=== PATIENT | female | born 1950 | race Caucasian/White ===

== ENCOUNTER 2016-06-09 13:02 | Inpatient (IN) ==
--- NOTE | 2016-06-09 13:46 | Emergency Department Note ---
Disposition Clinical Impression: Atrial flutter Qualifiers: Atrial flutter type: typical Qualified Code(s): I48.3 - Typical atrial flutter Dyspnea, unspecified Qualifiers: Dyspnea type: shortness of breath Qualified Code(s): R06.02 - Shortness of breath Disposition: Admitted As Inpatient SOB HPI - General Chief Complaint: ED Shortness of Breath/Dyspnea Stated Complaint: abnormal EKG Time Seen by Provider: 06/09/16 13:10 Source: patient, family Limitations: no limitations - History of Present Illness 65 yo female presenting with complaint of shortness of breath, palpitations intermittently for the past 2 months. Patient states that this morning when she woke up to walk her dog, she felt like her heart was beating out of her chest to the point where she felt like she had to sit down. Patient denies gabriela chest pain, known history of CAD, status post triple CABG back in . Patient denies any syncopal/presyncopal episodes, denies history of DVT/PE. Patient does not take any anticoagulation, no Plavix/aspirin despite having had cardiac bypass. In the ED, at this time, patient does not have any chest pain. Patient was sent in from her primary care physician's office due to fast EKG, highly suspicious for atrial flutter. She denies history of A. fib, a flutter/ cardiac arrhythmia. Pt Subjective Complaint: shortness of breath Onset (ago): month(s) (2) Severity: mild Consistency/Duration: intermittent Improves with: nothing Worsens with: exertion Treatment prior to arrival: none - Related Data Home Medications Medication Instructions Recorded Confirmed Cholecalciferol (D-3) [Vitamin D] 2,000 unit PO DAILY 04/18/16 06/09/16 Citalopram Hydrobromide [Celexa] 40 mg PO DAILY 04/18/16 06/09/16 Diphenoxylate/Atropine [Lomotil 1 tab PO BID PRN 04/18/16 06/09/16 2.5 mg/0.025 mg] Gabapentin [Neurontin] 900 mg PO HS 04/18/16 06/09/16 Losartan/Hydrochlorothiazide 1 tab PO DAILY 04/18/16 06/09/16 [Hyzaar 100-12.5 Tablet] Metformin HCl [Metformin HCl ER] 500 mg PO BID 04/18/16 06/09/16 Metoprolol [Lopressor] 50 mg PO DAILY 04/18/16 06/09/16 Allergies Allergy/AdvReac Type Severity Reaction Status Date / Time atorvastatin [From Lipitor] Allergy Rash Verified 06/09/16 15:29 All systems ED: reviewed and negative except as stated. Constitutional: Denies: fever, chills, weakness Cardiovascular: Reports: palpitations, dyspnea on exertion. Denies: chest pain , orthopnea, edema, syncope Respiratory: Reports: dyspnea. Denies: cough, wheezes, hemoptysis Gastrointestinal: Denies: abdominal pain, nausea, vomiting, diarrhea Genitourinary: Denies: urgency, dysuria, frequency Neurological: Denies: headache, weakness Past Medical History - Past Medical History Medical history: Reports: cancer, diabetes, hypertension Psychiatric history: Reports: anxiety - Social History Smoking Status: Former smoker Smokeless Tobacco Status: No Alcohol use: Reports: none Drug use: Reports: none Physical Exam - General Limitations: no limitations General appearance: alert - Head Head exam: atraumatic, normocephalic, normal inspection - Eye Eye exam: Present: normal appearance, PERRL - Expanded Eye Exam Pupils: Left: reactive - ENT ENT exam: normal exam, normal oropharynx, mucous membranes moist - Expanded ENT Exam External ear exam: Present: normal external inspection - Neck Neck exam: Present: normal inspection, full ROM, trachea midline - Chest Chest inspection: Present: normal inspection, symmetric chest wall rise - Respiratory Respiratory exam: Present: normal lung sounds bilaterally - Cardiovascular Cardiovascular exam: Present: regular rate, normal rhythm, normal heart sounds - Abdominal Exam Abdominal exam: Present: soft, Non-Tender. Absent: tenderness, distention, guarding, rebound, rigidity - Extremities Exam Extremities exam: Present: normal inspection. Absent: tenderness, pedal edema - Expanded Upper Extremity Exam Vascular exam: Normal: capillary refill, radial pulse - Expanded Lower Extremity Exam Neurovascular/Tendon exam: Absent: motor deficit, sensory deficit, tendon deficit - Back Exam Back exam: Present: normal inspection, full ROM. Absent: tenderness - Neurological Exam Neurological exam: Present: alert, oriented X3 - Expanded Neurological Exam Patient oriented to: Present: person, place, time Coma Scale Eye Opening: Spontaneous Coma Scale Motor Response: Obeys Commands Coma Scale Verbal Response: Oriented Coma Scale Total: 15 - Psychiatric Psychiatric exam: Present: normal affect, normal mood - Skin Skin exam: Present: warm, dry, intact, normal color Course Course Narrative: 65 yo female presented with complaint of palpitations, shortness of breath intermittently for the past 2 months. EKG suspicious for atrial flutter, patient denies history of arrhythmia, no known history of A. fib/A flutter. She has past history of CAD, status post CABG; no history of cardiomyopathy/CHF. Patient is currently symptom-free, said the shortness of breath was worse this morning when she tried walk HER dog. Patient stated that sometimes she cannot even walk across a room without needing to sit down due to the palpitation and shortness of breath. She has no history of DVT/PE, low suspicion for a blood clot at this time. - Reevaluation(s) Reevaluation #1: I did discuss patient's case with the hospitalist, she will admit patient, hopitalist was made aware of the patient's a-flutter on the EKG, patient's complaint of shortness of breath, elevation of BNP despite no known history of cardiomyopathy/CHF. I did look for patient's previous echocardiogram, this was unavailable per our records. The hospitalist and I agreed to give patient a small dose of metoprolol prior to be being transported to the floor. I think that IV Cardizem is not particularly needed at this time based on the fact that I'm not sure whether patient has cardiomyopathy, she is comfortable, despite having heart rate of 120s, her blood pressure has been stable and no demand ischemia per EKGs/ troponin. Vital Signs Temperature 96.7 F L 06/09/16 13:09 Pulse Rate 120 06/09/16 13:09 Respiratory Rate 20 06/09/16 13:09 Blood Pressure 140/101 06/09/16 13:09 O2 Sat by Pulse Oximetry 95 06/09/16 13:09 Temperature 97.8 F 06/09/16 15:46 Pulse Rate 115 06/09/16 15:46 Respiratory Rate 16 06/09/16 15:46 Blood Pressure 120/82 06/09/16 15:46 O2 Sat by Pulse Oximetry 96 06/09/16 16:07 Oxygen Delivery Oxygen Delivery Nasal Cannula Shortness of Breath/Dyspnea - Lab Data Result diagrams: 06/09/16 13:34 06/09/16 13:34 Lab Results 06/09/16 06/09/16 06/09/16 Range/Units 13:34 13:34 13:34 WBC 7.0 (4.3-11.1) K/mcL RBC 3.65 L (3.82-4.97) M/mcL Hgb 10.4 L (11.5-15.4) g/dL Hct 33.1 L (35.3-44.9) % MCV 90.7 (83.0-100.0) fL MCH 28.5 (28.0-33.3) pg MCHC 31.4 L (31.6-35.5) g/dL RDW 13.3 (11.5-14.5) % Plt Count 177 (140-400) K/mcL MPV 10.1 (9.4-12.4) fL Immature Gran % 0.3 (0-4) % Seg Neutrophils % 48.5 % Lymphocytes % 40.4 % Monocytes % 7.9 % Eosinophils % 2.0 % Basophils % 0.9 % Neutrophils # 3.4 (1.6-8.9) K/mcL Lymphocytes # 2.8 (0.6-4.6) K/mcL Monocytes # 0.6 (0.0-1.3) K/mcL Eosinophils # 0.1 (0.0-0.6) K/mcL Basophils # 0.1 (0.0-0.2) K/mcL Sodium 138 (136-145) mEq/L Potassium 4.1 (3.5-4.5) mEq/L Chloride 105 (98-109) mEq/L Carbon Dioxide 23 (19-29) mEq/L BUN 20 (7-20) mg/dL Creatinine 1.04 (0.57-1.11) mg/dL Est GFR ( Amer) > 60 (> 60) Est GFR (Non-Af Amer) 53 L (> 60) BUN/Creatinine Ratio 19 (6-26) Glucose 123 H (70-99) mg/dL Calculated Osmolality 290 (280-300) Calcium 9.7 (8.6-10.8) mg/dL Troponin I 0.01 (0-0.03) ng/mL B-Natriuretic Peptide (0-100) pg/mL TSH 1.244 (0.350-4.840) mcIU/mL 06/09/16 Range/Units 13:34 WBC (4.3-11.1) K/mcL RBC (3.82-4.97) M/mcL Hgb (11.5-15.4) g/dL Hct (35.3-44.9) % MCV (83.0-100.0) fL MCH (28.0-33.3) pg MCHC (31.6-35.5) g/dL RDW (11.5-14.5) % Plt Count (140-400) K/mcL MPV (9.4-12.4) fL Immature Gran % (0-4) % Seg Neutrophils % % Lymphocytes % % Monocytes % % Eosinophils % % Basophils % % Neutrophils # (1.6-8.9) K/mcL Lymphocytes # (0.6-4.6) K/mcL Monocytes # (0.0-1.3) K/mcL Eosinophils # (0.0-0.6) K/mcL Basophils # (0.0-0.2) K/mcL Sodium (136-145) mEq/L Potassium (3.5-4.5) mEq/L Chloride (98-109) mEq/L Carbon Dioxide (19-29) mEq/L BUN (7-20) mg/dL Creatinine (0.57-1.11) mg/dL Est GFR ( Amer) (> 60) Est GFR (Non-Af Amer) (> 60) BUN/Creatinine Ratio (6-26) Glucose (70-99) mg/dL Calculated Osmolality (280-300) Calcium (8.6-10.8) mg/dL Troponin I (0-0.03) ng/mL B-Natriuretic Peptide 731 H (0-100) pg/mL TSH (0.350-4.840) mcIU/mL - EKG Data Rate: Reports: tachycardia Rhythm: Reports: arrhythmia [place]/QRS: Reports: left axis deviation Interpretation: Reports: other (A flutter) Attestation Statement - Attestation Attestation: I examined this patient and my medical decision-making was reviewed with the BULL DRIVER/PA/Advanced Practice Nurse/Resident Physician. I agree with the documented findings, disposition and treatment plan as described except to the extent set forth below. Patient presents to the emergency department treatment shortness of breath. Patient states she has felt bad for the past couple of months. She is not having pain in her lower ribs for the past 3 days. She saw her primary care doctor today, Dr. Mcmanus, who did an EKG. She was in a flutter so she sent for evaluation in the emergency department. Patient states her heart rates and running in the 140s home. On examination she is well appearing. Lungs are clear. She has noted have a midline sternotomy scar. Heart tachycardia but regular. Plan. EKG seems most consistent with atrial flutter in the 120s. Cardiac workup and likely admission.
[2016-06-09 13:50] LABS: Basophils # 0.1 K/mcL (0.0-0.2); Basophils % 0.9 %; Eosinophils # 0.1 K/mcL (0.0-0.6); Hematocrit 33.1 % (35.3-44.9); Hemoglobin 10.4 g/dL (11.5-15.4); Immature Granulocytes % 0.3 % (0-4); Lymphocytes # 2.8 K/mcL (0.6-4.6); Lymphocytes % 40.4 %; Mean Corpuscular HGB Conc 31.4 g/dL (31.6-35.5); Mean Corpuscular Hemoglobin 28.5 pg (28.0-33.3); Mean Corpuscular Volume 90.7 fL (83.0-100.0); Mean Platelet Volume 10.1 fL (9.4-12.4); Monocytes # 0.6 K/mcL (0.0-1.3); Monocytes % 7.9 %; Neutrophils # 3.4 K/mcL (1.6-8.9); Platelet Count 177 K/mcL (140-400); Red Blood Count 3.65 M/mcL (3.82-4.97); Red Cell Distribution Width 13.3 % (11.5-14.5); Segmented Neutrophils % 48.5 %
[2016-06-09] MEDS ORDERED: Aspirin 325 MG TABLET PO ONE (13:56)
[2016-06-09 14:02] LABS: BUN/Creatinine Ratio 19 (6-26); Blood Urea Nitrogen 20 mg/dL (7-20); Calcium 9.7 mg/dL (8.6-10.8); Carbon Dioxide 23 mEq/L (19-29); Chloride 105 mEq/L (98-109); Glucose 123 mg/dL (70-99); Osmolality,Calculated 290 (280-300); Potassium 4.1 mEq/L (3.5-4.5); Sodium 138 mEq/L (136-145); eGFR For African Americans > 60 (> 60); eGFR For Non-African Americans 53 (> 60)
[2016-06-09] MEDS ORDERED: *HR* Metoprolol 5 MG/5 ML VIAL IVP ONE ×2 (14:48→15:12)
[2016-06-09] MEDS ORDERED: Naloxone 0.4 MG/ML INJ IVP PRN (15:19)
[2016-06-09] MEDS ORDERED: Ondansetron ODT 4 MG TAB.RAPDIS SL PRN (15:19)
[2016-06-09] MEDS ORDERED: Dextrose Gel 15 GM PO PRN ×2 (15:22)
[2016-06-09] MEDS ORDERED: *HR* Dextrose 50 % in Water (Syg) 50 ML SYRINGE IVP PRN (15:22)
[2016-06-09] MEDS ORDERED: D5% in Water 1,000 ML IV PRN (15:22)
[2016-06-09] MEDS ORDERED: Diphenoxylate/Atropine 1 TAB TABLET PO PRN (15:34)
--- NOTE | 2016-06-09 15:56 | Internal Med History&Physical ---
Date of Encounter: 06/09/16 Time of Encounter: 14:30 Assessment and Plan (1) Atrial flutter with rapid ventricular response Current visit: Yes Status: Acute -Unclear if this is an acute on chronic process given patient's previous EKG findings -Rate control with Metoprolol and Cardizem, goal HR<100 -changed patient's metoprolol home dosing to Metoprolol 25mg PO q12h given current BP readings -Follow up 2D echo -I spoke with Dr. Umaña (Cardiology), she will see the patient. -will initiate anticoagulation with heparin drip at this time. -follow up Thyroid studies -tele monitoring -continue to closely monitor HR and BP (2) Dyspnea, unspecified Current visit: Yes Status: Acute Likely secondary to underlying arrhythmia Will follow up 2D echo continue to monitor O2 sat O2 supplementation as needed Qualifiers: Dyspnea type: shortness of breath Qualified Code(s): R06.02 - Shortness of breath (3) Hypertension Current visit: Yes Status: Acute Noted to be hypertensive upon arrival Improved after receiving one dose of Metoprolol 10mg IV Closely monitor BP continue home medications Changed Metoprolol to 25mg PO q12h from Metoprolol 50mgPO qd for better rate control Qualifiers: Hypertension type: essential hypertension Qualified Code(s): I10 - Essential (primary) hypertension (4) Diabetes mellitus Current visit: Yes Status: Acute Hold hold antihyperglycemics at this time continue to monitor fingerstick and blood glucose started low dose correctional insulin sliding scale Qualifiers: Diabetes mellitus type: type 2 Diabetes mellitus complication status: with unspecified complications 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 Qualified Code(s): E11.8 - Type 2 diabetes mellitus with unspecified complications (5) DVT prophylaxis Current visit: Yes Status: Acute anticoagulated with heparin (6) Anemia Current visit: Yes Status: Acute H&H low but acceptable Denied any GI bleeds, no active bleeding noted/reported at this time continue to monitor H&H Qualifiers: Anemia type: unspecified type Qualified Code(s): D64.9 - Anemia, unspecified (7) Morbid obesity Current visit: Yes Status: Chronic Qualifiers: Obesity type: unspecified obesity type Qualified Code(s): E66.01 - Morbid ( severe) obesity due to excess calories Internal Medicine - H&P: HPI Chief complaint: sent by PCP for evaluation of atrial flutter and SOB Admitted From: Home Plans for Post Hospital Care: Home History of present illness: Ms. Hernández is a 65 year old female with PMH of hypertension, DM, CABG in 1994 who was sent to the ER by her PCP for evaluation of atrial flutter with RVR and shortness of breath. Patient states she has been having palpitations for the last three months and [facility]. States earlier today her heart started beating excessively fast as she was walking her dog and she became short of breath, requiring her to stop and rest. Prior to this episode she reports of being able to get around without any difficulties but has been noticing to get short of breath with exertion over the last few months. Due to the episode today she went to see her PCP, who further directed her to the ER. 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 At this time, she is resting in bed, reports of feeling better with the nasal cannula. She denies any headache, chest pain, sob, abd pain, n/v , fever, or chills at this time. PMH: HTN, DM, CABG in , HLD, Breast Ca s/p right breastectomy and chemotherapy 13 years ago (in remission) Social Hx: Former smoker-quit 12 years ago, denies alcohol or any illicit drug use Patient received one dose of Aspirin 325mg PO in the ER. Patient is to get Metoprolol 10mg IV Of note: patient was noted to have EKG findings of A flutter with RVR in April 2016 during her URGI care visit for her URI. Past Med Surg Social Fam HX - Past Medical History Medical history: cancer, diabetes, hypertension Psychiatric history: anxiety - Social History Smoking Status: Former smoker Smokeless Tobacco Status: No Alcohol use: none Drug use: none Internal Medicine - H&P: Meds Celexa 04/18/16 [History] Gabapentin [Neurontin] 04/18/16 [History] Lomotil 2.5 mg/0.025 mg 04/18/16 [History] Losartan Potassium 04/18/16 [History] Metformin 04/18/16 [History] Metoprolol [Lopressor] 04/18/16 [History] Vitamin D2 04/18/16 [History] Allergies atorvastatin [From Lipitor] Allergy (Verified 06/09/16 15:29) Rash All Systems PM: A 10-system review of systems was performed and is negative for pertinent findings except as documented above in the HPI. - Constitutional Constitutional: as per HPI, no anorexia, no chills, no excessive sweating, no fatigue, no fever(s), no falls, no night sweats, no weakness, no weight gain, no weight loss - Constitutional Vitals: Temp Pulse Resp BP Pulse Ox 98.1 F 112 18 123/77 97 06/09/16 15:19 06/09/16 15:31 06/09/16 15:31 06/09/16 15:31 06/09/16 15:31 General appearance: Present: cooperative, A&O X 3, morbidly obese, no acute distress, answers questions appropriately - Head Head exam: Present: atraumatic, normocephalic - Eye Eye exam: Present: normal appearance. Absent: scleral icterus - Respiratory Respiratory exam: Present: CTAB. Absent: chest wall tenderness (midline chest scar from prior surgery (CABG)), respiratory distress, wheezes - Cardiovascular Cardiovascular exam: Present: irregular rhythm, +S1, +S2, tachycardia. Absent: diastolic murmur, systolic murmur - GI/Abdominal GI/Abdominal exam: Present: normal bowel sounds, soft, no peritoneal signs. Absent: distended, tenderness - Extremities Exam Extremities exam: Present: warm, radial pulses palpable and symetrical. Absent : calf tenderness, cyanotic, pedal edema - Neurological Exam Neurological exam: Present: alert, oriented X3, no focal deficits - Psychiatric Psychiatric exam: Present: normal affect, normal mood Internal Med - H&P Results - Labs CBC & Chem 7: 06/09/16 13:34 06/09/16 13:34
[2016-06-09 16:05] LABS: Thyroid Stimulating Hormone 1.244 mcIU/mL (0.350-4.840)
[2016-06-09] MEDS ORDERED: *HR* Heparin 5,000 UNIT/ML VIAL IVP ONE (16:09)
[2016-06-09] MEDS ORDERED: *HR* Heparin 5,000 UNIT/ML VIAL IVP PRN ×2 (16:09)
[2016-06-09] MEDS ORDERED: Heparin 25,000 UNIT/500 ML D5W 25,000 UNIT/500 ML MLS IVC SCH (16:15)
[2016-06-09] MEDS: Insulin LISPRO 300 UNITS/3 ML VIAL SQ SCH ×2 (16:53→20:44)
[2016-06-09] MEDS ORDERED: Ipratropium/Albuterol Neb 3 ML IH PRN (17:03)
[2016-06-09] MEDS ORDERED: *HR* Heparin 5,000 UNIT/ML VIAL SQ SCH (18:00)
[2016-06-09 18:18] LABS: Hematocrit 30.7 % (35.3-44.9); Hemoglobin 9.8 g/dL (11.5-15.4); Mean Corpuscular HGB Conc 31.9 g/dL (31.6-35.5); Mean Corpuscular Hemoglobin 29.2 pg (28.0-33.3); Mean Corpuscular Volume 91.4 fL (83.0-100.0); Mean Platelet Volume 10.8 fL (9.4-12.4); Platelet Count 155 K/mcL (140-400); Red Blood Count 3.36 M/mcL (3.82-4.97); Red Cell Distribution Width 13.5 % (11.5-14.5)
[2016-06-09 18:26] LABS: INR 1.4; Prothrombin Time 15.5 Seconds (9.4-12.1)
[2016-06-09 18:28] LABS: Activated Partial Thrombo Time 39.3 Seconds (26.0-36.0)
[2016-06-09] MEDS: Gabapentin 300 MG CAPSULE PO SCH (20:52)
[2016-06-09] MEDS ORDERED: 0.9 % Sodium Chloride 250 ML ONE (23:42)
[2016-06-10] MEDS ORDERED: 0.9 % Sodium Chloride 250 ML IVC ONE (05:43)
[2016-06-10] MEDS ORDERED: 0.9 % Sodium Chloride 1,000 ML IVC SCH (05:45)
[2016-06-10] MEDS ORDERED: 0.9 % Sodium Chloride 1,000 ML ONE (05:48)
[2016-06-10 06:35] LABS: Basophils % 0.6 %; Eosinophils # 0.1 K/mcL (0.0-0.6); Eosinophils % 1.8 %; Hematocrit 29.1 % (35.3-44.9); Hemoglobin 9.4 g/dL (11.5-15.4); Immature Granulocytes % 0.3 % (0-4); Lymphocytes # 2.6 K/mcL (0.6-4.6); Lymphocytes % 42.4 %; Mean Corpuscular HGB Conc 32.3 g/dL (31.6-35.5); Mean Corpuscular Hemoglobin 29.2 pg (28.0-33.3); Mean Corpuscular Volume 90.4 fL (83.0-100.0); Mean Platelet Volume 10.6 fL (9.4-12.4); Monocytes # 0.5 K/mcL (0.0-1.3); Monocytes % 7.5 %; Platelet Count 131 K/mcL (140-400); Red Blood Count 3.22 M/mcL (3.82-4.97); Red Cell Distribution Width 13.4 % (11.5-14.5); Segmented Neutrophils % 47.4 %
[2016-06-10 06:48] LABS: BUN/Creatinine Ratio 20 (6-26); Blood Urea Nitrogen 19 mg/dL (7-20); Calcium 9.1 mg/dL (8.6-10.8); Carbon Dioxide 21 mEq/L (19-29); Chloride 105 mEq/L (98-109); Glucose 112 mg/dL (70-99); Magnesium 1.4 mg/dL (1.6-2.6); Osmolality,Calculated 287 (280-300); Phosphorous 3.7 mg/dL (2.3-4.7); Potassium 3.5 mEq/L (3.5-4.5); Sodium 137 mEq/L (136-145); eGFR For African Americans > 60 (> 60); eGFR For Non-African Americans > 60 (> 60)
[2016-06-10 06:49] LABS: Hemoglobin A1C 5.9 %
[2016-06-10] MEDS: Insulin LISPRO 300 UNITS/3 ML VIAL SQ SCH ×4 (07:59→21:20)
[2016-06-10] MEDS: Cholecalciferol (D-3) 1,000 UNIT TABLET PO SCH (08:00)
[2016-06-10] MEDS ORDERED: NON-FORMULARY MEDICATION 1 EACH EACH (Losartan/Hydrochlorothiazide [Hyzaar 100-12.5 Tablet PO SCH (09:00)
[2016-06-10] MEDS ORDERED: Aspirin Enteric Coated 81 MG Tablet PO SCH (09:00)
[2016-06-10] MEDS ORDERED: hydroCHLOROthiazide 25 MG TABLET PO SCH (09:00)
--- NOTE | 2016-06-10 10:08 | Electrocardiograph Report ---
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
--- NOTE | 2016-06-10 11:33 | Cardiology Consult Note ---
<Stefan Gamez R - Last Filed: 06/10/16 11:34> Date of Encounter: 06/10/16 Time of Encounter: 11:29 Assessment and Plan (1) Atrial flutter with rapid ventricular response Current Visit: Yes Status: Acute Appears to be atypical A-Flutter. EKGs reviewed with Dr. Cleveland Mascorro. Currently on telemetry, difficult to differentiate if pt is in sinus tach or remains in atypical A-Flutter. Will obtain another EKG. Currently on PO Lopressor 25mg BID and Cardizem gtt 7.5mg/hr. HR persistently in 120s. Uptitrate to keep HR <100 as BP will allow. Will rule out PE as underlying cause--order Chest CT with contrast. Suspect PETE. Check echo to evaluate structure and function. Troponin negative x 1. Mag 1.4 and K 3.5--replace. TSH 0.982. CHADSVASC score of 4 (Age, HTN, DM, CAD). Recommend anticoagulation. Pt has a history of GI bleed in 2010, but per pt and daughter she was taking full dose ASA multiple times per day for dental pain, which likely caused the bleeding. Extensive discussion regarding anticoagulation and pt and daughter are willing. Will challenge with heparin gtt x 24 hours to see if blood counts tolerate or if there is any bleeding noted. If tolerates, then can start on oral agent-- NOACs vs Coumadin. (2) CAD (coronary artery disease) Current Visit: Yes Status: Chronic History of 3 vessel CABG in 1994. Reports chest soreness since her CABG. Continue BB, Statin. Has not been on ASA since GI bleed in 2010. Check echo. Qualifiers: Coronary Disease-Associated Artery/Lesion type: unspecified vessel or lesion type [place] vs. transplanted heart: [place] heart Associated angina: without angina Qualified Code(s): I25.10 - Atherosclerotic heart disease of [place] coronary artery without angina pectoris (3) Hypertension Current Visit: Yes Status: Acute On Lopressor, Cozaar and Cardizem gtt. Will decrease Cozaar to allow room to increase rate control meds. Qualifiers: Hypertension type: essential hypertension Qualified Code(s): I10 - Essential (primary) hypertension Discussion w patient/family: The assessment and plan as outlined above was discussed with the patient and/or family members who expressed understanding and agreement. All questions were answered. Thank you for involving us in the care of your patient. Please call with any questions. History of Present Illness Consult date: 06/10/16 Requesting physician: Darlin Rodriguez Consult reason: A-Flutter RVR Chief complaint: dyspnea, palpitations History of present illness: Ms. Hernández is a 65 year old female with PMH of hypertension, DM, CAD s/p CABG in 1994, HLD, Breast Ca s/p right breastectomy and chemotherapy 13 years ago (in remission), GI bleed, who was sent to the ER by her PCP for evaluation of atrial flutter with RVR and shortness of breath. Patient states she has been having palpitations for the last three months and went to the Urgent Care in April for an URI, was told her fast heart rate was anxiety. States yesterday her heart started beating excessively fast as she was walking her dog and she became short of breath, requiring her to stop and rest. Home BP cuff read HR as 150s, which is when she called her PCP, went to his office, EKG obtained and she was sent to ER. Pt reports chest soreness ever since her CABG, but no worsening from baseline. Dyspnea has been worsening over the past 3 months. Troponins negative. Past Med Surg Social Fam HX - Past Medical History Medical history: cancer, coronary artery disease, diabetes, hypertension Psychiatric history: anxiety - Past Surgical History Surgical History: appendectomy, breast surgery, coronary bypass (CABG) - Social History Smoking Status: Former smoker Smokeless Tobacco Status: No Alcohol use: none Drug use: none - Family History Father Age: 54 Living Status: Age at : 54 Cause of : cirrosis of liver Hx Family Cardiac Disorders: Yes (cardiomegaly) Hx Family Cancer: Yes (liver) Medications and Allergies Cholecalciferol (D-3) [Vitamin D] 2,000 unit PO DAILY 04/18/16 [History] Citalopram Hydrobromide [Celexa] 40 mg PO DAILY 04/18/16 [History] Diphenoxylate/Atropine [Lomotil 2.5 mg/0.025 mg] 1 tab PO BID PRN 04/18/16 [ History] Gabapentin [Neurontin] 900 mg PO HS 04/18/16 [History] Losartan/Hydrochlorothiazide [Hyzaar 100-12.5 Tablet] 1 tab PO DAILY 04/18/16 [ History] Metformin HCl [Metformin HCl ER] 500 mg PO BID 04/18/16 [History] Metoprolol [Lopressor] 50 mg PO DAILY 04/18/16 [History] Allergies atorvastatin [From Lipitor] Allergy (Verified 06/09/16 15:29) Rash All Systems Review: A 10-system review of systems was performed and is negative for pertinent findings except as documented above in the HPI. - Cardiovascular Cardiovascular: as per HPI, dyspnea at rest, dyspnea on exertion, irregular heart rhythm, palpitations - Respiratory Respiratory: dyspnea Physical Examination Vital Signs, Last 4 Hours Temp Pulse Resp BP Pulse Ox 06/10/16 10:47 98.4 F 116 16 106/40 98 Vital Signs Temp Pulse Resp BP Pulse Ox 06/10/16 10:47 98.4 F 116 16 106/40 98 06/10/16 06:55 97.9 F 125 18 109/55 96 06/10/16 05:15 97.5 F L 124 20 113/67 95 06/10/16 04:44 18 98 06/10/16 03:23 98.3 F 122 20 119/70 96 06/10/16 01:41 97.2 F L 120 16 132/87 98 06/09/16 23:27 97.7 F 122 20 115/82 99 06/09/16 21:30 124 20 124/84 97 06/09/16 20:15 93 L 06/09/16 18:28 97.5 F L 123 16 114/62 93 L 06/09/16 17:34 97.5 F L 124 14 108/73 97 06/09/16 16:07 96 06/09/16 15:46 97.8 F 115 16 120/82 96 06/09/16 15:31 112 18 123/77 97 06/09/16 15:19 98.1 F 20 134/95 06/09/16 14:20 121 18 136/97 98 06/09/16 13:15 96 06/09/16 13:09 96.7 F L 120 20 140/101 95 Intake and Output 06/09/16 06/10/16 06/10/16 23:59 07:59 15:59 Intake Total 341.9 / 341.9 300 / 300 Output Total 300 / 300 300 / 300 Balance -300 / -300 41.9 / 41.9 300 / 300 Intake: IV Fluids 41.9 / 41.9 Cardizem 125 MG In 41.9 / 41.9 Dextrose 5% 100 ML @ 5 MG /HR 5 mls/hr IVC .Q24H [facility] Rx#:[id number] Oral 300 / 300 Other 300 / 300 Output: Urine 300 / 300 300 / 300 Other: Meal Breakfast Percent of Meal Consumed 100% Weight 223.8 kg Blood Glucose* 98 167 141 Patient Weight 06/10/16 23:59 Weight 223.8 kg General: Conversant, No Apparent Distress HEENT: Atraumatic, Normocephaly, Mucus Membranes Moist Neck: No JVD, Normal carotid pulses Cardiac: Other (irregular) Lungs: Normal Breath Sounds, No Wheeze, Rales, Rhonchi Neuro: Alert and responsive, No focal deficits noted Abdomen: Soft, Non-Tender Skin: No rashes noted on visualized skin Musculoskeletal: No Chest Wall Tenderness Extremities: No Clubbing, No Cyanosis, No Edema, Normal Pulses Results 06/10/16 05:46 06/10/16 05:46 Lab Results 06/09/16 06/09/16 06/09/16 16:03 16:03 17:46 WBC 6.0 Hgb 9.8 L Hct 30.7 L Plt Count 155 INR APTT Sodium Potassium Chloride Carbon Dioxide BUN Creatinine Glucose Calcium Magnesium TSH 1.038 0.982 06/09/16 06/10/16 06/10/16 17:46 05:46 05:46 WBC 6.2 Hgb 9.4 L Hct 29.1 L Plt Count 131 L INR 1.4 APTT 39.3 H Sodium 137 Potassium 3.5 Chloride 105 Carbon Dioxide 21 BUN 19 Creatinine 0.93 Glucose 112 H Calcium 9.1 Magnesium 1.4 L TSH Short CBC 06/10/16 06/09/16 06/09/16 Range/Units 05:46 17:46 13:34 WBC 6.2 6.0 7.0 (4.3-11.1) K/mcL Hgb 9.4 L 9.8 L 10.4 L (11.5-15.4) g/dL Hct 29.1 L 30.7 L 33.1 L (35.3-44.9) % Plt Count 131 L 155 177 (140-400) K/mcL Neutrophils # 3.0 3.4 (1.6-8.9) K/mcL BMP 06/10/16 06/09/16 Range/Units 05:46 13:34 Sodium 137 138 (136-145) mEq/L Potassium 3.5 4.1 (3.5-4.5) mEq/L Chloride 105 105 (98-109) mEq/L Carbon Dioxide 21 23 (19-29) mEq/L BUN 19 20 (7-20) mg/dL Creatinine 0.93 1.04 (0.57-1.11) mg/dL Glucose 112 H 123 H (70-99) mg/dL Calcium 9.1 9.7 (8.6-10.8) mg/dL Cardiac Enzymes 06/09/16 Range/Units 13:34 Troponin I 0.01 (0-0.03) ng/mL Impressions Chest X-Ray 06/09/16 13:15 IMPRESSION: Patchy airspace disease at the right costophrenic angle with possible small right pleural effusion. Follow-up PA and lateral chest is recommend to further evaluate. D/ / 06/09/2016 13:41:30 Rigoberto Baker MD / [email or web address] Interpreting Provider: Rigoberto Baker MD Active Medications Acetaminophen (Tylenol) 500 mg PO Q6HR PRN PRN Reason: Mild Pain Stop: 12/10/16 09:48 Last Admin: 06/10/16 09:54 Dose: 500 mg Albuterol/Ipratropium (Duoneb) 3 ml IH [id number] PRN; Protocol PRN Reason: Shortness Of Breath/Wheezing Stop: 12/09/16 17:04 Last Admin: 06/10/16 04:40 Dose: 3 ml Citalopram Hydrobromide (Celexa) 40 mg PO DAILY [facility] Stop: 12/10/16 09:01 Last Admin: 06/10/16 08:00 Dose: 40 mg Dextrose/Water (Dextrose 50% (Syg)) 25 ml IVP AD PRN PRN Reason: Hypoglycemia Stop: 12/09/16 15:23 Diphenoxylate HCl/Atropine (Lomotil 2.5 Mg/0.025 Mg) 1 tab PO BID PRN PRN Reason: Diarrhea Stop: 12/09/16 15:35 Gabapentin (Neurontin) 900 mg PO HS [facility] Stop: 12/09/16 21:01 Last Admin: 06/09/16 20:52 Dose: 900 mg Glucagon (Glucagen) 1 mg IM ONCE PRN PRN Reason: Hypoglycemia Stop: 12/09/16 15:23 Glucose (Gluctose) 15 gm PO ONCE PRN PRN Reason: Hypoglycemia Stop: 12/09/16 15:23 Glucose (Gluctose) 30 gm PO ONCE PRN PRN Reason: Hypoglycemia Stop: 12/09/16 15:23 Hydrochlorothiazide (Hydrochlorothiazide) 12.5 mg PO DAILY [facility] Stop: 12/10/16 09:01 Last Admin: 06/10/16 08:01 Dose: 12.5 mg Dextrose (Dextrose 5%) 1,000 mls @ 100 mls/hr IV CONT PRN PRN Reason: HYPOGLYCEMIA Stop: 12/09/16 15:23 Diltiazem HCl 125 mg/ Dextrose 125 mls @ 5 mls/hr IVC .Q24H [facility] PRN Reason: 5 MG/HR Stop: 12/09/16 23:31 Last Infusion: 06/10/16 03:24 Dose: 7.5 mg/hr, 7.5 mls/hr Sodium Chloride (0.9 % Sodium Chloride) 1,000 mls @ 75 mls/hr IVC .[id number] [facility] Stop: 06/10/16 19:04 Last Admin: 06/10/16 06:16 Dose: 75 mls/hr Insulin Human Lispro (Humalog) 0 units SQ TIDAC [facility] PRN Reason: Protocol Stop: 12/09/16 16:31 Last Admin: 06/10/16 07:59 Dose: 2 units Insulin Human Lispro (Humalog) 0 units SQ [facility] PRN Reason: Protocol Stop: 12/09/16 21:01 Last Admin: 06/09/16 20:44 Dose: Not Given Losartan Potassium (Cozaar) 100 mg PO DAILY [facility] Stop: 12/10/16 09:01 Last Admin: 06/10/16 08:00 Dose: 100 mg Metoprolol Tartrate (Lopressor) 25 mg PO BID [facility] Stop: 12/09/16 21:01 Last Admin: 06/10/16 08:00 Dose: 25 mg Naloxone HCl (Narcan) 0.4 mg IVP Q2MIN PRN PRN Reason: Opioid Reversal Stop: 12/09/16 15:20 Ondansetron HCl (Zofran Odt) 4 mg SL Q6HR PRN PRN Reason: Nausea And Vomiting Stop: 12/09/16 15:20 Vitamin D (Vitamin D) 2,000 unit PO DAILY [facility] Stop: 12/10/16 09:01 Last Admin: 06/10/16 08:00 Dose: 2,000 unit - Imaging and Cardiology Chest Xray: report reviewed - EKG Interpretation EKG results cardiology: personally reviewed (Atyical A-Flutter with RVR), other (12 hour tele AVG HR 122--atypical flutter) Consult Discharge Plan - Plan Referrals: Ward Mcmanus MD [Primary Care Provider] - 06/18/16 2:00 pm (Please follow up as schedule.Thanks) <Komal Umaña - Last Filed: 06/10/16 16:14> Date of Encounter: 06/10/16 Assessment and Plan Discussion w patient/family: The assessment and plan as outlined above was discussed with the patient and/or family members who expressed understanding and agreement. All questions were answered. Thank you for involving us in the care of your patient. Please call with any questions. History of Present Illness History of present illness: Ms. Hernández is a 65 year old female All Systems Review: A 10-system review of systems was performed and is negative for pertinent findings except as documented above in the HPI. Physical Examination Vital Signs, Last 4 Hours Temp Pulse Resp BP Pulse Ox 06/10/16 14:30 97.3 F L 119 20 136/75 97 06/10/16 13:13 97.6 F 121 18 108/74 95 06/10/16 12:15 112/52 Results 06/10/16 12:24 06/10/16 05:46 Lab Results 06/09/16 06/09/16 06/09/16 16:03 16:03 17:46 WBC 6.0 Hgb 9.8 L Hct 30.7 L Plt Count 155 INR APTT Sodium Potassium Chloride Carbon Dioxide BUN Creatinine Glucose Calcium Magnesium TSH 1.038 0.982 06/09/16 06/10/16 06/10/16 17:46 05:46 05:46 WBC 6.2 Hgb 9.4 L Hct 29.1 L Plt Count 131 L INR 1.4 APTT 39.3 H Sodium 137 Potassium 3.5 Chloride 105 Carbon Dioxide 21 BUN 19 Creatinine 0.93 Glucose 112 H Calcium 9.1 Magnesium 1.4 L TSH 06/10/16 06/10/16 12:24 12:24 WBC 7.0 Hgb 9.6 L Hct 30.1 L Plt Count 162 INR 1.4 APTT 37.5 H Sodium Potassium Chloride Carbon Dioxide BUN Creatinine Glucose Calcium Magnesium TSH - Attending Attestation I examined this patient and my medical decision-making was reviewed with the SLD INCLUSION TEACHER/PA/Advanced Practice Nurse/Resident Physician. I agree with the documented findings, disposition and treatment plan. Ms. Hernández presents to the hospital for worsening SOB. She was initially discovered to be in AFL in April at urgent care but did not have outpatient follow up. She had a CT which was negative for PE. Echo returned with reduced EF, 40% most likely secondary to tachycardia induced dysrhythmia. She is not responding to cardizem gtt. We will stop this, increase her BB and load her with Digoxin. She has also been started on heparin gtt. Recommend closely watching blood count due to history of GIB while taking high doses of aspirin.
[2016-06-10] MEDS ORDERED: *HR* Heparin 5,000 UNIT/ML VIAL IVP ONE (11:49)
[2016-06-10] MEDS ORDERED: *HR* Heparin 5,000 UNIT/ML VIAL IVP PRN (11:49)
[2016-06-10] MEDS ORDERED: Magnesium Sulfate 2 GM in D5% in Water 100 ML IVPB ONE (11:49)
[2016-06-10 12:51] LABS: Hematocrit 30.1 % (35.3-44.9); Hemoglobin 9.6 g/dL (11.5-15.4); Mean Corpuscular HGB Conc 31.9 g/dL (31.6-35.5); Mean Corpuscular Hemoglobin 28.7 pg (28.0-33.3); Mean Corpuscular Volume 89.9 fL (83.0-100.0); Mean Platelet Volume 10.8 fL (9.4-12.4); Platelet Count 162 K/mcL (140-400); Red Blood Count 3.35 M/mcL (3.82-4.97); Red Cell Distribution Width 13.6 % (11.5-14.5)
[2016-06-10] MEDS ORDERED: ALPRAZolam 0.5 MG TABLET PO ONE (12:54)
[2016-06-10 12:57] LABS: INR 1.4; Prothrombin Time 15.3 Seconds (9.4-12.1)
[2016-06-10 13:00] LABS: Activated Partial Thrombo Time 37.5 Seconds (26.0-36.0)
--- NOTE | 2016-06-10 13:34 | ECHO - Doppler Report ---
Echocardiogram Name: Cass Hernández Date of Study: 06/10/2016 Date: 1950 Ht: 65.0 in Medical Record#: [id number] Age: 65 Wt: 223.0 lb Gender: Female BSA: 2.07 Order #: [id number] Location: [facility] Room #: 2A31 Reading Physician: Mathew You MD, [facility] Insights Strategist: Ordering Physician: Darlin Rodriguez MD Primary Physician: Ward Mcmanus MD Indications: new onset A flutter Impressions: Atrial flutter with RVR. Heart rate was in the 120's during this study. Mild-moderate LV systolic dysfunction, LVEF 40%. There is global LV hypokinesis. Indeterminate diastolic function. Normal right ventricular size and function. Moderately dilated left atrium. Mildly dilated right atrium. Mild mitral regurgitation. Mild tricuspid regurgitation. No evidence of pulmonary hypertension. Left Ventricular Wall Motion: Rest Echo Findings The apex, apical inferior, mid inferior, basal inferior, apical anterior, mid anterior, basal anterior, apical septal, mid inferior septal, basal inferior septal, apical lateral, mid anterior lateral, basal anterior lateral, mid anterior septal, mid inferior lateral, basal anterior septal and basal inferior lateral martínez were hypokinetic. Findings: Study Quality * Suboptimal echo windows. ECG Findings * Atrial flutter with RVR. Heart rate was in the 120's during this study. Left Ventricle * Mild-moderate LV systolic dysfunction, LVEF 40%. There is global LV hypokinesis. * Normal LV chamber size and wall thickness. * Indeterminate diastolic function. Right Ventricle * Normal right ventricular size and function. Left Atrium * Moderately dilated left atrium. Right Atrium * Mildly dilated right atrium. Aorta * Normally sized aortic root. Pericardium * There is no pericardial effusion present. IVC * The IVC is not well evaluated. Aortic Valve * Trileaflet aortic valve. * Mildly sclerotic aortic valve leaflets. * No aortic stenosis. * No aortic regurgitation. Mitral Valve * Mild mitral annular calcification * No mitral stenosis. * Mild mitral regurgitation. Tricuspid Valve * Tricuspid valve not well visualized. * No tricuspid stenosis. * Mild tricuspid regurgitation. * No evidence of pulmonary hypertension. Pulmonic Valve * Pulmonic valve not well visualized. * No pulmonic stenosis. * Trace pulmonic regurgitation. History Hypertension Diabetes Family History of CAD Myocardial Infarction Coronary Artery Bypass Graft Measurements: BP: 113/ 67 2D Normal Values RVIDd: 3.10 cm IVSd: 1.00 cm 0.6 - 1.0 cm LVIDd: 4.90 cm 3.7 - 5.6 cm LVPWd: 1.00 cm 0.6 - 1.1 cm LVIDs: 3.90 cm 1.5 - 3.6 cm AO: 2.60 cm < 4.0 cm LA volume: 78 Tricuspid Valve TV Regurg Peak Grad: 24.00mmHg TV Regurg Peak Noam: 2.44m/sec Updated by Mathew You MD, FACC on 06/10/2016 1:28:43 PM electronically signed on 06/10/2016 1:29:40 PM with status of Final Wall Motion Duong: 1=Normal, 2=Hypokinesis, 3=Akinesis, 4=Dyskinesis, 5=Aneurysmal, 6=Hyperkinetic, X=Not Visualized (Blank)=Missing
[2016-06-10] MEDS: Heparin 25,000 UNIT/500 ML D5W 25,000 UNIT/500 ML MLS IVC SCH ×2 (14:00→14:30)
[2016-06-10] MEDS ORDERED: *HR* Digoxin 0.5 MG/2 ML AMPUL IVP ONE (15:32)
--- NOTE | 2016-06-10 15:56 | Internal Med Progress Note ---
Date of Encounter: 06/10/16 Time of Encounter: 15:54 - Assessment and plan (1) Atrial flutter with rapid ventricular response Current Visit: Yes Status: Acute Assessment and plan: atypical A-Flutter as per cardio Currently on PO Lopressor 25mg BID and Cardizem gtt advanced to 10mg/hr. HR persistently in 120s. Uptitrate to keep HR <100 as BP will allow. CTA negative for PE. echo showed atrial flutter with [id number] LV systolic dysfunction, LVEF of 40% and global LV hypokinesis. Indeterminant diastolic function. Troponin negative x 1. TSH 0.982. as per cardiology: CHADSVASC score of 4 (Age, HTN, DM, CAD). Recommend anticoagulation. Pt has a history of GI bleed in 2010, but per pt and daughter she was taking full dose ASA multiple times per day for dental pain, which likely caused the bleeding. Extensive discussion regarding anticoagulation and pt and daughter are willing. Will challenge with heparin gtt x 24 hours to see if blood counts tolerate or if there is any bleeding noted. If tolerates, then can start on oral agent-- NOACs vs Coumadin. 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 Qualifiers: Hypertension type: essential hypertension Qualified Code(s): I10 - Essential (primary) hypertension (4) CAD (coronary artery disease) Current Visit: Yes Status: Chronic Assessment and plan: History of 3 vessel CABG in 1994. Reports chest soreness since her CABG. Continue BB, Statin. Has not been on ASA since GI bleed in 2010. Qualifiers: Coronary Disease-Associated Artery/Lesion type: unspecified vessel or lesion type [place] vs. transplanted heart: tribal heart Associated angina: without angina Qualified Code(s): I25.10 - Atherosclerotic heart disease of tribal coronary artery without angina pectoris - Time Spent With Patient 25 - 35 minutes - Subjective Interval history: seen at the bedside, reports mild sob, denies any chest pain. admitted for atrial fib with RVR. started on cardizem drip, HR at bedside still 120s. - Constitutional Vitals: Temp Pulse Resp BP Pulse Ox 97.3 F L 119 20 136/75 97 06/10/16 14:30 06/10/16 14:30 06/10/16 14:30 06/10/16 14:30 06/10/16 14:30 General appearance: Present: cooperative, A&O X 3, morbidly obese, no acute distress, answers questions appropriately Exam: neck- supple chest- b/l clear, no added sounds CVS-s1 and s2, no mr/g abd-soft, non tender, bs are present ext- no edema neuro- no focal defecits, alert and awake. Internal Medicine: Result - Labs CBC & Chem 7: 06/10/16 12:24 06/10/16 05:46 Labs: Short CBC 06/09/16 06/10/16 06/10/16 Range/Units 17:46 05:46 12:24 WBC 6.0 6.2 7.0 (4.3-11.1) K/mcL Hgb 9.8 L 9.4 L 9.6 L (11.5-15.4) g/dL Hct 30.7 L 29.1 L 30.1 L (35.3-44.9) % Plt Count 155 131 L 162 (140-400) K/mcL Neutrophils # 3.0 (1.6-8.9) K/mcL BMP 06/10/16 05:46 Sodium 137 Potassium 3.5 Chloride 105 Carbon Dioxide 21 BUN 19 Creatinine 0.93 Glucose 112 H Calcium 9.1 - ABG Interpretation ABG results: PT/INR, D-dimer PT 15.3 Seconds (9.4-12.1) H 06/10/16 12:24 - Impressions Impressions Chest CTA 06/10/16 11:06 IMPRESSION: No pulmonary emboli are identified. Mild patchy ground-glass opacity seen in the lower lobes bilaterally, as well as a focal ground-glass nodule seen in the left upper lobe measuring 3.4 mm. These changes could be inflammatory in nature, or possibly related to mild pulmonary edema. Recommend follow up based on Fleischner criteria as below. There is a small right pleural effusion layering posteriorly. Cardiomegaly, with prior CABG. Mild emphysematous changes are seen. RECOMMENDATIONS: Fleischner Society guidelines for follow-up and management of pulmonary nodules: Nodule size less than or equal to 4 mm In a low-risk patient, no follow-up needed. In a high-risk patient, follow-up CT at 12 months; if unchanged, no further follow-up. Low risk patients include individuals with minimal or absent history of smoking and other known risk factors. High risk patients include individuals with a history of smoking or other known risk factors. Radiology 2005; [id number] D/ / Rigoberto Caraballo MD / Rigoberto Caraballo MD Interpreting Provider: Rigoberto Caraballo MD - VTE Documentation of Mechanical Device: Intermittent pneumatic compression device Consult Discharge Plan - Plan Referrals: Ward Mcmanus MD [Primary Care Provider] - 06/18/16 2:00 pm (Please follow up as schedule.Thanks)
[2016-06-10] MEDS ORDERED: *HR* LORazepam 2 MG/ML VIAL IVP STA (19:54)
--- NOTE | 2016-06-10 20:43 | Electrocardiograph Report ---
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
[2016-06-10 20:46] LABS: Activated Partial Thrombo Time 215.2 Seconds (26.0-36.0)
[2016-06-10 20:50] LABS: Heparin anti-factor XA UFH 0.76 IU/mL (0.30-0.70)
[2016-06-10] MEDS: *HR* Digoxin 0.5 MG/2 ML AMPUL IVP SCH (21:20)
[2016-06-10] MEDS: Melatonin 3 MG TABLET PO SCH (21:20)
[2016-06-10] MEDS: Gabapentin 300 MG CAPSULE PO SCH (21:20)
[2016-06-11] MEDS ORDERED: *HR* LORazepam 2 MG/ML VIAL IVP PRN (02:00)
[2016-06-11] MEDS: *HR* Digoxin 0.5 MG/2 ML AMPUL IVP SCH (04:05)
[2016-06-11] MEDS: Insulin LISPRO 300 UNITS/3 ML VIAL SQ SCH ×4 (08:43→20:24)
[2016-06-11] MEDS: Cholecalciferol (D-3) 1,000 UNIT TABLET PO SCH (08:49)
[2016-06-11 09:27] LABS: Basophils % 0.4 %; Eosinophils # 0.1 K/mcL (0.0-0.6); Eosinophils % 2.9 %; Hematocrit 29.9 % (35.3-44.9); Hemoglobin 9.3 g/dL (11.5-15.4); Immature Granulocytes % 0.2 % (0-4); Immature Platelets 3.3 % (1.1-6.1); Lymphocytes % 41.5 %; Mean Corpuscular HGB Conc 31.1 g/dL (31.6-35.5); Mean Corpuscular Hemoglobin 28.4 pg (28.0-33.3); Mean Corpuscular Volume 91.4 fL (83.0-100.0); Mean Platelet Volume 10.5 fL (9.4-12.4); Monocytes # 0.4 K/mcL (0.0-1.3); Monocytes % 8.1 %; Neutrophils # 2.3 K/mcL (1.6-8.9); Platelet Count 127 K/mcL (140-400); Red Blood Count 3.27 M/mcL (3.82-4.97); Red Cell Distribution Width 13.4 % (11.5-14.5); Segmented Neutrophils % 46.9 %
[2016-06-11 09:38] LABS: BUN/Creatinine Ratio 22 (6-26); Blood Urea Nitrogen 20 mg/dL (7-20); Calcium 8.9 mg/dL (8.6-10.8); Carbon Dioxide 21 mEq/L (19-29); Chloride 107 mEq/L (98-109); Glucose 134 mg/dL (70-99); Osmolality,Calculated 289 (280-300); Sodium 137 mEq/L (136-145); eGFR For African Americans > 60 (> 60); eGFR For Non-African Americans > 60 (> 60)
--- NOTE | 2016-06-11 10:59 | Internal Med Progress Note ---
Date of Encounter: 06/11/16 Time of Encounter: 08:00 - Assessment and plan (1) Afib Current Visit: Yes Status: Acute Assessment and plan: paroxismal now appears n sinus tach will do EKG check magnesium, cardiology following Qualifiers: Atrial fibrillation type: paroxysmal Qualified Code(s): I48.0 - Paroxysmal atrial fibrillation (2) Atrial flutter Current Visit: Yes Status: Acute Qualifiers: Atrial flutter type: typical Qualified Code(s): I48.3 - Typical atrial flutter (3) Pneumonia Current Visit: Yes Status: Acute Assessment and plan: Bibasilar pneumonia, start antibiotics med nebs due to mild bronchospasm start oral steroids, incentive pulmonary toilette Qualifiers: Lung location: unspecified part of lung Qualified Code(s): J18.9 - Pneumonia, unspecified organism (4) CHF (congestive heart failure) Current Visit: Yes Status: Chronic Assessment and plan: with systolic disfunction EF 40% start aldactone , continue BB. AFSHAN cardiology evaluating pfor possible cardiac cath Qualifiers: Congestive heart failure type: systolic Congestive heart failure chronicity : unspecified congestive heart failure chronicity Qualified Code(s): I50.20 - Unspecified systolic (congestive) heart failure - Time Spent With Patient 25 - 35 minutes - Subjective Interval history: Pt c/o cough and generalzied weakness - Constitutional Vitals: Temp Pulse Resp BP Pulse Ox 97.5 F L 106 18 104/55 93 L 06/11/16 08:35 06/11/16 08:35 06/11/16 08:35 06/11/16 08:35 06/11/16 08:50 General appearance: Present: cooperative, A&O X 3, morbidly obese, no acute distress, answers questions appropriately - Respiratory Respiratory exam: Present: decreased breath sounds, wheezes - Cardiovascular Cardiovascular exam: Present: tachycardia ( ). Absent: gallop, RRR Additional comments: ocassional PACS - GI/Abdominal GI/Abdominal exam: Present: normal bowel sounds - Extremities Exam Extremities exam: Absent: joint swelling Additional comments: trace pedal edema - Neurological Exam Neurological exam: Present: oriented X3 Internal Medicine: Result - Labs CBC & Chem 7: 06/11/16 09:11 06/11/16 09:11 Labs: Short CBC 01/05/17 01/06/17 Range/Units 12:24 09:11 WBC 7.0 4.9 (4.3-11.1) K/mcL Hgb 9.6 L 9.3 L (11.5-15.4) g/dL Hct 30.1 L 29.9 L (35.3-44.9) % Plt Count 162 127 L (140-400) K/mcL Neutrophils # 2.3 (1.6-8.9) K/mcL BMP 06/11/16 09:11 Sodium 137 Potassium 4.0 Chloride 107 Carbon Dioxide 21 BUN 20 Creatinine 0.93 Glucose 134 H Calcium 8.9 - ABG Interpretation ABG results: PT/INR, D-dimer PT 15.3 Seconds (9.4-12.1) H 06/10/16 12:24 - Impressions Impressions Chest CTA 06/10/16 11:06 IMPRESSION: No pulmonary emboli are identified. Mild patchy ground-glass opacity seen in the lower lobes bilaterally, as well as a focal ground-glass nodule seen in the left upper lobe measuring 3.4 mm. These changes could be inflammatory in nature, or possibly related to mild pulmonary edema. Recommend follow up based on Fleischner criteria as below. There is a small right pleural effusion layering posteriorly. Cardiomegaly, with prior CABG. Mild emphysematous changes are seen. RECOMMENDATIONS: Fleischner Society guidelines for follow-up and management of pulmonary nodules: Nodule size less than or equal to 4 mm In a low-risk patient, no follow-up needed. In a high-risk patient, follow-up CT at 12 months; if unchanged, no further follow-up. Low risk patients include individuals with minimal or absent history of smoking and other known risk factors. High risk patients include individuals with a history of smoking or other known risk factors. Radiology 2005; [id number]:395-400 D/ / Rigoberto Caraballo MD / Rigoberto Caraballo MD Interpreting Provider: Rigoberto Caraballo MD - VTE Documentation of Mechanical Device: Intermittent pneumatic compression device Consult Discharge Plan - Plan Referrals: Ward Mcmanus MD [Primary Care Provider] - 06/18/16 2:00 pm (Please follow up as schedule.Thanks)
[2016-06-11] MEDS ORDERED: Azithromycin 500 MG in D5% in Water 250 ML IVPB SCH (11:00)
--- NOTE | 2016-06-11 11:39 | Event Note ---
Date of Encounter: 06/11/16 Time of Encounter: 11:34 - Cardiology Event Note Echo resulted--EF 40%. Mild MR and TR. Global hypokinesis--suspect tachycardia induced, although cannot rule out ischemic cause. H&H tolerating IV heparin. Will rivers check Xarelto for product development AC. Hospitalist now treating pt for bibasilar PNA, which could be contributing to RVR. CTA of chest negative for PE. Atypical A-Flutter with RVR persists. Plan is to JAUN/DCCV today. Once converted/rate controlled, if pt remains chest pain free, will recheck echo as outpt to see if EF has improved, then decide if ischemic evaluation is warranted. R/B/A regarding JAUN/DCCV were discussed and pt agrees. Continue BB and Digoxin. Start PO Digoxin in AM. Last loading dose was early this AM.
[2016-06-11] MEDS: Heparin 25,000 UNIT/500 ML D5W 25,000 UNIT/500 ML MLS IVC SCH ×3 (12:56→21:06)
[2016-06-11] MEDS ORDERED: 0.9 % Sodium Chloride 500 ML IVC ONE (13:20)
[2016-06-11] MEDS ORDERED: Tetracaine/Benzocaine/Butamben 200MG/SPRAY (100SPY/BOT) MM ONE (13:20)
[2016-06-11] MEDS: *HR* FentaNYL (PF) 100 MCG/2 ML VIAL IVP PRN ×2 (15:00→15:05)
[2016-06-11] MEDS: *HR* Midazolam HCl 5 MG/5 ML VIAL IVP PRN ×2 (15:00→15:05)
--- NOTE | 2016-06-11 16:21 | ECHO - Doppler Report ---
Transesophageal Echocardiogram Name: Cass Hernández Date of Study: 06/11/2016 Date: 1950 Ht: 65.0in Medical Record#: [id number] Age: 65 Wt: 225.0lb Gender: Female BSA: 2.08 Order #: [id number] Location: [facility] Room #: 2A31 Reading Physician: Brad Suárez DO, DAMARIS, GRACE JACKSON Electromechanical Inspector: Bruce Dejesus Ordering Physician: Stefan Gamez CNP Primary Physician: Ward Mcmanus MD Indications: Arrhythmia Impressions: Atrial flutter with RVR. LVEF 40-45% Normal LV chamber size with mild global hypokinesis. The right ventricle was normal in size and systolic function. Moderately dilated left atrium. A small echodensity suggestive of thrombus is visualized in the LA appendage. Mild mitral regurgitation. Moderate tricuspid regurgitation. No pulmonary hypertension. Cardioversion was not performed due to LA appendage thrombus. Results discussed with inpatient cardiology team. Left Ventricular Wall Motion: Transesophageal Echo Findings The apex, apical lateral, apical inferior, apical septal, apical anterior, mid anterior lateral, mid inferior lateral, mid inferior, mid inferior septal, mid anterior septal, basal anterior lateral, basal inferior lateral, basal inferior, basal inferior septal, basal anterior septal, basal anterior and mid anterior martínez were hypokinetic. Procedure Summary: After explaining the risks, benefits, and alternatives of the procedure to the patient in detail and answering all questions to satisfaction, an informed consent was obtained in writing. The patient was NPO for the six hours prior to the procedure. The patient denied dysphagia, odynophagia, and loose teeth. The patient was monitored with periodic automated blood pressures and continuous pulse oximetry and telemetry. Continuous oxygen was administered by NE. The patient was placed in the full upright position and the posterior oropharynx was anesthetized as above and complete suppression of the gag reflex was obtained. The patient was then placed in the left lateral decubitus position, the neck was flexed, and a bite block was placed in the patient's mouth. IV sedation was administered. Once adequate sedation was achieved, a well-lubricated anteflexed multipoint intraesophageal echocardiographic probe was inserted into the midline posterior oropharynx. Gentle pressure was applied as the patient swallowed and the esophagus was intubated without difficulty. The scope was advanced to the mid esophagus without encountering resistance. Images were obtained from the mid and upper esophagus. Images from the gastric globe were obtained. The intra-atrial septum was assessed by color-flow Doppler. The scope was then rotated approximately 180 degrees and withdrawn, visualizing the length of the aorta. The scope was then slowly withdrawn as the patient was continually suctioned. The patient tolerated the procedure well. Medication Given: Time Medication Dose Units Route 15:00 Versed 2 mg IV 15:00 Fentanyl 25 mcg IV 15:05 Versed 2 mg IV 15:05 Fentanyl 25 mcg IV Findings: Study Quality * Technically adequate exam. ECG Findings * Atrial flutter with RVR. Left Ventricle * LVEF 40-45% * Normal LV chamber size with mild global hypokinesis. Right Ventricle * The right ventricle was normal in size and systolic function. Left Atrium * Moderately dilated left atrium. * A small echodensity suggestive of thrombus is visualized in the LA appendage. Right Atrium * Mildly dilated right atrium. Interatrial Septum * No evidence of patent foramen ovale by color Doppler. Aortic Valve * The aortic valve is tricuspid. * No aortic regurgitation. * No aortic stenosis. Mitral Valve * Normal structure. * Mild mitral regurgitation. * No mitral stenosis. Tricuspid Valve * Normal structure. * Moderate tricuspid regurgitation. * No pulmonary hypertension. Pulmonic Valve * Normal structure and function. * No pulmonic regurgitation. Aorta * The aortic root is not dilated. Pericardium * No pericardial effusion. Pulmonary Artery * Normal pulmonary artery. Complications: Arrhythmia Measurements: Tricuspid Valve Est RVSP:29.00mmHg TV Regurg Peak Grad: 24.00mmHg TV Regurg Peak Noam:2.44m/sec History: Hypertension Diabetes Years 30Packs 3 Family History of CAD History of CAD/PTCA Myocardial Infarction Coronary Artery Bypass Graft Previous Echo06/10/2016 Updated by Brad Suárez DO, FACIke, MANUEL, GRACE on 06/11/2016 4:14:27 PM electronically signed on 06/11/2016 4:16:31 PM with status of Final Wall Motion Duong: 1=Normal, 2=Hypokinesis, 3=Akinesis, 4=Dyskinesis, 5=Aneurysmal, 6=Hyperkinetic, X=Not Visualized (Blank)=Missing Wall MotionIndex JAUN Total of all scored bass 34 Index Divided by ---- = 2 Total number of bass scored 17
[2016-06-11] MEDS ORDERED: *HR* Warfarin 7.5 MG TABLET PO ONE (18:00)
[2016-06-11] MEDS ORDERED: Warfarin perPT PO PRN (18:00)
[2016-06-11] MEDS: Doxycycline 100 MG CAPSULE PO SCH (20:32)
[2016-06-11] MEDS: Gabapentin 300 MG CAPSULE PO SCH (20:32)
[2016-06-11] MEDS: Melatonin 3 MG TABLET PO SCH (20:33)
[2016-06-11] MEDS ORDERED: Diphenoxylate/Atropine 1 TAB TABLET PO PRN (21:00)
--- NOTE | 2016-06-12 06:50 | Cardiology Progress Note ---
Date of Encounter: 06/12/16 Time of Encounter: 07:00 Assessment and Plan (1) Pneumonia Current Visit: Yes Status: Acute Per Cardiology: Bibasilar pneumonia being managed by primary service. On antibiotics, nebs, and steroids. Afebrile and no leukocytosis noted. Suspect contributing factor to aflutter with RVR. Qualifiers: Pneumonia type: due to unspecified organism Laterality: bilateral Lung location: unspecified part of lung Qualified Code(s): J18.9 - Pneumonia, unspecified organism (2) Atrial flutter with rapid ventricular response Current Visit: Yes Status: Acute Per Cardiology: Remains tachy with atypical A-Flutter with average heart rate past 12 hours 116. Status post JAUN with plans for DC cardioversion, however found to have a small echodensity suggestive of thrombus visualized in left atrial appendage. On Lopressor 50 mg by mouth twice a day. Most recent systolic blood pressure 120s to 140s. Will increase Lopressor to 75 mg by mouth twice a day. Patient is status post digoxin IV load and now on 0.125 mg by mouth daily. CT negative for PE. TSH okay. Echocardiogram shows EF 40%, moderately dilated left atrium, mildly dilated right atrium, mild MR, mild TR, no evidence of pulmonary hypertension. Discussed with Dr. Umaña potential need for LHC, will discuss with distribution designer today. CHADSVASC score of 4 (Age, HTN, DM, CAD). Recommend anticoagulation. Pt has a history of GI bleed in 2010, but per pt and daughter she was taking full dose ASA multiple times per day for dental pain, which likely caused the bleeding. Patient remains currently on IV heparin drip and H&H appears stable. Started on Coumadin therapy yesterday with finding of left atrial appendage thrombus. Recommend continue IV heparin drip until INR therapeutic at 2.0-3.0. (3) Thrombus of left atrial appendage Current Visit: Yes Status: Acute Per Cardiology: Status post JAUN yesterday for possible DC cardioversion, however findings of small echodensity suggestive of thrombus visualized left atrial appendage. Again , on IV heparin drip with stable H&H. Started on Coumadin therapy. Recommend IV heparin bridging until INR therapeutic at 2.0-3.0. (4) CAD (coronary artery disease) Current Visit: Yes Status: Chronic Per Cardiology: History of 3 vessel CABG in 1994. Reports chest soreness since her CABG. On BB. Has not been on ASA since GI bleed in 2010. Has listed allergy to atorvastatin, will need to evaluate potential addition of statin therapy. Echocardiogram shows EF of 40%, upon review of medical records no previous EF noted. Troponin negative 1. Again, will evalaute for possible left heart catheterization. PATIENT answered. Patient and daughter are agreeable. Patient had listed allergy to atorvastatin due to rash, however patient and daughter deny history of rash with statin. The report concerns of short of breath that they self discontinued, however short of breath did not improve. At this point agreeable to attempt low-dose statin therapy. We'll start Lipitor 10mg PO and monitor closely. Qualifiers: Coronary Disease-Associated Artery/Lesion type: unspecified vessel or lesion type [place] vs. transplanted heart: [place] heart Associated angina: without angina Qualified Code(s): I25.10 - Atherosclerotic heart disease of [place] coronary artery without angina pectoris (5) CHF (congestive heart failure) Current Visit: Yes Status: Chronic Per Cardiology: EF noted to be 40%. No previous records available for comparison. BNP in the 700s. According to medical records, net negative I&O +855 mL. Euvolemic on exam. Qualifiers: Congestive heart failure type: systolic Congestive heart failure chronicity : unspecified congestive heart failure chronicity Qualified Code(s): I50.20 - Unspecified systolic (congestive) heart failure (6) Hypomagnesemia Current Visit: Yes Status: Acute Per Cardiology: Initial magnesium 1.4. Appears to have received mag rider. Magnesium now 1.6, will give mag rider and continue to monitor. Potassium stable. Discussion w patient/family: The assessment and plan as outlined above was discussed with the patient and/or family members who expressed understanding and agreement. All questions were answered. Thank you for involving us in the care of your patient. Please call with any questions. Subjective Principal diagnosis: Aflutter RVR Interval history: Patient denies any CP, SOB, Palps. Denies any active bleeding or blood loss. Objective Selected Entries 06/11/16 19:51 06/11/16 20:52 Temperature 97.9 F Pulse Rate 120 Respiratory Rate 16 Blood Pressure 149/90 O2 Sat by Pulse Oximetry 95 Oxygen Delivery Method Room Air General: Conversant, No Apparent Distress HEENT: Atraumatic, Normocephaly, Mucus Membranes Moist Cardiac: Reg Rate and Rhythm, Normal S1 and S2, No Murmur Lungs: Normal Breath Sounds, No Wheeze, Rales, Rhonchi Neuro: Alert and responsive, No focal deficits noted Extremities: No Edema, Normal Pulses Results 06/11/16 09:11 06/12/16 06:56 Lab Results Laboratory Tests 06/09/16 06/09/16 06/09/16 13:34 13:34 13:34 Hgb 10.4 L Hct 33.1 L Plt Count 177 INR Troponin I 0.01 B-Natriuretic Peptide 731 H TSH Digoxin 06/09/16 06/10/16 06/11/16 16:03 12:24 04:05 Hgb Hct Plt Count INR 1.4 Troponin I B-Natriuretic Peptide TSH 0.982 Digoxin 1.4 06/11/16 09:11 Hgb 9.3 L Hct 29.9 L Plt Count 127 L INR Troponin I B-Natriuretic Peptide TSH Digoxin ITS Impressions Chest X-Ray 06/09/16 13:15 IMPRESSION: Patchy airspace disease at the right costophrenic angle with possible small right pleural effusion. Follow-up PA and lateral chest is recommend to further evaluate. D/ / 06/09/2016 13:41:30 Rigoberto Baker MD / [facility] Interpreting Provider: Rigoberto Baker MD Chest CTA 06/10/16 11:06 IMPRESSION: No pulmonary emboli are identified. Mild patchy ground-glass opacity seen in the lower lobes bilaterally, as well as a focal ground-glass nodule seen in the left upper lobe measuring 3.4 mm. These changes could be inflammatory in nature, or possibly related to mild pulmonary edema. Recommend follow up based on Fleischner criteria as below. There is a small right pleural effusion layering posteriorly. Cardiomegaly, with prior CABG. Mild emphysematous changes are seen. RECOMMENDATIONS: Fleischner Society guidelines for follow-up and management of pulmonary nodules: Nodule size less than or equal to 4 mm In a low-risk patient, no follow-up needed. In a high-risk patient, follow-up CT at 12 months; if unchanged, no further follow-up. Low risk patients include individuals with minimal or absent history of smoking and other known risk factors. High risk patients include individuals with a history of smoking or other known risk factors. Radiology 2005; 237:395-400 D/ / Rigoberto Caraballo MD / Rigoberto Caraballo MD Interpreting Provider: Rigoberto Caraballo MD Active Medications Acetaminophen (Tylenol) 500 mg PO Q6HR PRN PRN Reason: Mild Pain Stop: 12/10/16 09:48 Last Admin: 06/11/16 00:57 Dose: 500 mg Albuterol/Ipratropium (Duoneb) 3 ml IH [id number] PRN; Protocol PRN Reason: Shortness Of Breath/Wheezing Stop: 12/09/16 17:04 Last Admin: 06/10/16 04:40 Dose: 3 ml Citalopram Hydrobromide (Celexa) 40 mg PO DAILY PHONG Stop: 12/10/16 09:01 Last Admin: 06/11/16 08:47 Dose: 40 mg Dextrose/Water (Dextrose 50% (Syg)) 25 ml IVP AD PRN PRN Reason: Hypoglycemia Stop: 12/09/16 15:23 Digoxin (Lanoxin) 0.125 mg PO DAILY PHONG Stop: 12/12/16 09:01 Diphenoxylate HCl/Atropine (Lomotil 2.5 Mg/0.025 Mg) 1 tab PO BID PRN PRN Reason: Diarrhea Stop: 12/11/16 21:01 Last Admin: 06/11/16 21:05 Dose: 1 tab Doxycycline Hyclate (Doxycycline) 100 mg PO BID PHONG Stop: 12/11/16 21:01 Last Admin: 06/11/16 20:32 Dose: 100 mg Fentanyl Citrate (Fentanyl (Pf)) 50 mcg IVP Q3MIN PRN PRN Reason: Sedation Stop: 12/11/16 13:31 Last Admin: 06/11/16 15:05 Dose: 25 mcg Gabapentin (Neurontin) 900 mg PO HS PHONG Stop: 12/09/16 21:01 Last Admin: 06/11/16 20:32 Dose: 900 mg Glucagon (Glucagen) 1 mg IM ONCE PRN PRN Reason: Hypoglycemia Stop: 12/09/16 15:23 Glucose (Gluctose) 15 gm PO ONCE PRN PRN Reason: Hypoglycemia Stop: 12/09/16 15:23 Glucose (Gluctose) 30 gm PO ONCE PRN PRN Reason: Hypoglycemia Stop: 12/09/16 15:23 Heparin Sodium (Porcine) (Heparin) 4,500 unit IVP Q6H PRN PRN Reason: SEE COMMENTS Stop: 12/10/16 11:50 Dextrose (Dextrose 5%) 1,000 mls @ 100 mls/hr IV CONT PRN PRN Reason: HYPOGLYCEMIA Stop: 12/09/16 15:23 Heparin Sodium/Dextrose (Heparin 25,000 Unit/500 Ml D5w) 25,000 unit in 500 mls @ 62.664 mls/hr IVC .Q7H59M PHONG; 14 UNIT/KG/HR PRN Reason: Protocol Stop: 12/10/16 12:01 Last Admin: 06/11/16 21:06 Dose: Not Given Ceftriaxone Sodium 1,000 mg/ (Dextrose) 100 mls @ 200 mls/hr IVPB DAILY [facility] Stop: 12/12/16 09:01 Insulin Human Lispro (Humalog) 0 units SQ TIDAC [facility] PRN Reason: Protocol Stop: 12/09/16 16:31 Last Admin: 06/11/16 16:50 Dose: Not Given Insulin Human Lispro (Humalog) 0 units SQ HS [facility] PRN Reason: Protocol Stop: 12/09/16 21:01 Last Admin: 06/11/16 20:24 Dose: Not Given Lorazepam (Ativan) 0.5 mg IVP Q4H PRN PRN Reason: Anxiety Stop: 12/11/16 02:01 Melatonin (Melatonin) 9 mg PO HS PHONG Stop: 12/10/16 21:01 Last Admin: 06/11/16 20:33 Dose: 9 mg Metoprolol Tartrate (Lopressor) 50 mg PO BID PHONG Stop: 12/10/16 21:01 Last Admin: 06/11/16 20:32 Dose: 50 mg Midazolam HCl (Versed) 2 mg IVP Q3MIN PRN PRN Reason: Sedation Stop: 12/11/16 13:31 Last Admin: 06/11/16 15:05 Dose: 2 mg Naloxone HCl (Narcan) 0.4 mg IVP Q2MIN PRN PRN Reason: Opioid Reversal Stop: 12/09/16 15:20 Ondansetron HCl (Zofran Odt) 4 mg SL Q6HR PRN PRN Reason: Nausea And Vomiting Stop: 12/09/16 15:20 Prednisone (Prednisone) 40 mg PO DAILY PHONG Stop: 12/12/16 09:01 Vitamin D (Vitamin D) 2,000 unit PO DAILY PHONG Stop: 12/10/16 09:01 Last Admin: 06/11/16 08:49 Dose: 2,000 unit Warfarin Sodium (Coumadin Perpt) 0 each PO DAILY@1800 PRN PRN Reason: SEE COMMENTS Stop: 12/11/16 18:01 - Imaging and Cardiology Chest Xray: report reviewed Echo: report reviewed - EKG Interpretation EKG results cardiology: other (Average heart rate the past 12 hours 116, remains atrial flutter) - VTE Documentation of Mechanical Device: Intermittent pneumatic compression device Consult Discharge Plan - Plan Referrals: Ward Mcmanus MD [Primary Care Provider] - 06/18/16 2:00 pm (Please follow up as schedule.Thanks)
[2016-06-12 07:27] LABS: BUN/Creatinine Ratio 17 (6-26); Blood Urea Nitrogen 14 mg/dL (7-20); Carbon Dioxide 22 mEq/L (19-29); Chloride 106 mEq/L (98-109); Sodium 138 mEq/L (136-145)
[2016-06-12 07:28] LABS: Calcium 9.4 mg/dL (8.6-10.8); Glucose 112 mg/dL (70-99); Osmolality,Calculated 287 (280-300); eGFR For African Americans > 60 (> 60); eGFR For Non-African Americans > 60 (> 60)
[2016-06-12 07:30] LABS: INR 1.4; Prothrombin Time 14.9 Seconds (9.4-12.1)
[2016-06-12] MEDS: Insulin LISPRO 300 UNITS/3 ML VIAL SQ SCH ×3 (08:49→21:05)
[2016-06-12] MEDS ORDERED: Spironolactone 25 MG TABLET PO SCH (09:00)
[2016-06-12] MEDS: Magnesium Sulfate 2 GM in D5% in Water 100 ML IVPB ONE ×2 (09:24→17:03)
[2016-06-12] MEDS: Heparin 25,000 UNIT/500 ML D5W 25,000 UNIT/500 ML MLS IVC SCH ×2 (09:26→09:29)
[2016-06-12] MEDS ORDERED: Chloraseptic Spray 177 ML BOTTLE MM PRN (09:32)
[2016-06-12] MEDS ORDERED: Magnesium Sulfate 1 GM in D5% in Water 100 ML IVPB ONE (09:35)
--- NOTE | 2016-06-12 09:39 | Internal Med Progress Note ---
Date of Encounter: 06/12/16 Time of Encounter: 10:00 - Assessment and plan (1) CHF (congestive heart failure) Current Visit: Yes Status: Chronic Assessment and plan: EF 45% , tachycardia induced? vs secondary to coronary artery disease, cardiology evaluating possibility for [facility] Qualifiers: Congestive heart failure type: systolic Congestive heart failure chronicity : unspecified congestive heart failure chronicity Qualified Code(s): I50.20 - Unspecified systolic (congestive) heart failure (2) Mural thrombus of cardiac apex Current Visit: Yes Status: Acute Assessment and plan: on heparin drip start ,coumadin follow INR, cardiology to determine if thrombo aspiration is needed or not (3) Atrial flutter Current Visit: Yes Status: Acute Assessment and plan: rate still not well control , cardiology just increase BB , pt was placed on digoxine, JAUN showed possible left atrial thrombus, cardiovertion could not be done yesterday Qualifiers: Atrial flutter type: typical Qualified Code(s): I48.3 - Typical atrial flutter (4) Pneumonia Current Visit: Yes Status: Acute Assessment and plan: mild right basilar, possible community acquired , incentive spiromettry , check chest X ray Qualifiers: Pneumonia type: due to unspecified organism Laterality: bilateral Lung location: unspecified part of lung Qualified Code(s): J18.9 - Pneumonia, unspecified organism (5) Mural thrombus of heart Current Visit: Yes Status: Acute (6) CHF (NYHA class III, ACC/AHA stage C) Current Visit: Yes Status: Acute - Subjective Interval history: Pt feels better denies chest pain SOB improving - Constitutional Vitals: Temp Pulse Resp BP Pulse Ox 97.8 F 116 18 133/84 96 06/12/16 07:49 06/12/16 07:49 06/12/16 07:49 06/12/16 07:49 06/12/16 07:49 General appearance: Present: cooperative, A&O X 3, morbidly obese, no acute distress, answers questions appropriately - Respiratory Respiratory exam: Present: decreased breath sounds - Cardiovascular Additional comments: tachycardic - GI/Abdominal GI/Abdominal exam: Present: normal bowel sounds, no peritoneal signs - Extremities Exam Extremities exam: Present: warm, radial pulses palpable and symetrical - Neurological Exam Neurological exam: Present: CN II-XII intact, oriented X3 Internal Medicine: Result - Labs CBC & Chem 7: 06/11/16 09:11 06/12/16 06:56 Labs: BMP 06/11/16 06/12/16 09:11 06:56 Sodium 137 138 Potassium 4.0 4.0 Chloride 107 106 Carbon Dioxide 21 22 BUN 20 14 Creatinine 0.93 0.83 Glucose 134 H 112 H Calcium 8.9 9.4 - ABG Interpretation ABG results: PT/INR, D-dimer PT 14.9 Seconds (9.4-12.1) H 06/12/16 06:56 - VTE Documentation of Mechanical Device: Intermittent pneumatic compression device Consult Discharge Plan - Plan Referrals: Ward Mcmanus MD [Primary Care Provider] - 06/18/16 2:00 pm (Please follow up as schedule.Thanks)
[2016-06-12] MEDS: *HR* Digoxin 0.125 MG TABLET PO SCH (09:55)
[2016-06-12] MEDS: predniSONE 20 MG TABLET PO SCH (09:55)
[2016-06-12] MEDS: Cholecalciferol (D-3) 1,000 UNIT TABLET PO SCH (09:56)
[2016-06-12] MEDS: Doxycycline 100 MG CAPSULE PO SCH ×2 (09:57→21:04)
--- NOTE | 2016-06-12 13:14 | Event Note ---
Date of Encounter: 06/12/16 Time of Encounter: 12:00 - Cardiology Event Note Patient discussed with family, Dr. Umaña, and interventional cardiology with plans for no C at this juncture.
[2016-06-12] MEDS ORDERED: *HR* Warfarin 7.5 MG TABLET PO ONE (18:30)
[2016-06-12] MEDS: Melatonin 3 MG TABLET PO SCH (21:04)
[2016-06-12] MEDS: Gabapentin 300 MG CAPSULE PO SCH (21:04)
[2016-06-13 06:08] LABS: INR 1.5; Prothrombin Time 15.9 Seconds (9.4-12.1)
--- NOTE | 2016-06-13 07:15 | Cardiology Progress Note ---
Date of Encounter: 06/13/16 Time of Encounter: 07:15 Assessment and Plan (1) Pneumonia Current Visit: Yes Status: Acute Per Cardiology: Bibasilar pneumonia being managed by primary service. On antibiotics, nebs, and steroids. Afebrile and no leukocytosis noted. Suspect contributing factor to aflutter with RVR. Qualifiers: Pneumonia type: due to unspecified organism Laterality: bilateral Lung location: unspecified part of lung Qualified Code(s): J18.9 - Pneumonia, unspecified organism (2) Atrial flutter with rapid ventricular response Current Visit: Yes Status: Acute Per Cardiology: Remains tachy with atypical A-Flutter with average heart rate past 12 hours again 116. Status post JAUN with plans for DC cardioversion, however found to have a small echodensity suggestive of thrombus visualized in left atrial appendage. On Lopressor 100mg by mouth twice a day. Most recent systolic blood pressure 130s to 150s. Patient is status post digoxin IV load and now on 0.125 mg by mouth daily. CT negative for PE. TSH okay. Echocardiogram shows EF 40%, moderately dilated left atrium, mildly dilated right atrium, mild MR, mild TR, no evidence of pulmonary hypertension. Discussed with Dr. Umaña, will DC lopressor and switch to Toprol XL 100mg PO BID. CHADSVASC score of 4 (Age, HTN, DM, CAD). Recommend anticoagulation. Pt has a history of GI bleed in 2010, but per pt and daughter she was taking full dose ASA multiple times per day for dental pain, which likely caused the bleeding. Patient remains currently on IV heparin drip and H&H appears stable. Started on Coumadin therapy yesterday with finding of left atrial appendage thrombus. INR 1.5 today. Recommend continue IV heparin drip until INR therapeutic at 2.0-3.0. Started on full dose asa by primary service, will decrease to 81mg, check CBC in am, need to monitor closely with Coumadin and IV Hep gtt. (3) Thrombus of left atrial appendage Current Visit: Yes Status: Acute Per Cardiology: Status post JAUN for possible DC cardioversion, however findings of small echodensity suggestive of thrombus visualized left atrial appendage. Again, on IV heparin drip with stable H&H. Started on Coumadin therapy. Recommend IV heparin bridging until INR therapeutic at 2.0-3.0. (4) CAD (coronary artery disease) Current Visit: Yes Status: Chronic Per Cardiology: History of 3 vessel CABG in 1994. Reports chest soreness since her CABG. No LHC since CABG. Echocardiogram shows EF of 40%, upon review of medical records no previous EF noted. Troponin negative 1. Patient and family agreeable for no LHC for now, can consider in outpatient setting. On BB. Has not been on ASA since GI bleed in 2010, now started by primary service, will decrease to 81mg. Patient had listed allergy to atorvastatin due to rash, however patient and daughter deny history of rash with statin. The report concerns of shortness of breath and they self discontinued, however shortness of breath did not improve. At this point agreeable to attempt low-dose statin therapy-- now on Lipitor 10mg PO, monitor closely. Qualifiers: Coronary Disease-Associated Artery/Lesion type: unspecified vessel or lesion type [place] vs. transplanted heart: [place] heart Associated angina: without angina Qualified Code(s): I25.10 - Atherosclerotic heart disease of [place] coronary artery without angina pectoris (5) CHF (congestive heart failure) Current Visit: Yes Status: Chronic Per Cardiology: EF noted to be 40%. No previous records available for comparison. BNP in the 700s. According to medical records, net negative I&O +2438 mL. Euvolemic on exam. Qualifiers: Congestive heart failure type: systolic Congestive heart failure chronicity : unspecified congestive heart failure chronicity Qualified Code(s): I50.20 - Unspecified systolic (congestive) heart failure (6) Hypomagnesemia Current Visit: Yes Status: Acute Per Cardiology: Replaced, now 1.7. Discussion w patient/family: The assessment and plan as outlined above was discussed with the patient and/or family members who expressed understanding and agreement. All questions were answered. Thank you for involving us in the care of your patient. Please call with any questions. Subjective Principal diagnosis: Aflutter RVR Interval history: Patient denies any CP, SOB, Palps. Denies any active bleeding or blood loss. Objective Vital Signs, Last 4 Hours Temp Pulse Resp BP Pulse Ox 06/13/16 03:30 97.8 F 117 16 139/88 99 General: Conversant, No Apparent Distress HEENT: Atraumatic, Normocephaly Cardiac: No Murmur, Other (aflutter on tele) Lungs: Other (few scattered to bases) Neuro: Alert and responsive, No focal deficits noted Skin: No rashes noted on visualized skin Extremities: No Edema Results 06/13/16 08:16 06/13/16 08:16 Lab Results Laboratory Tests 06/13/16 05:53 INR 1.5 06/13/16 05:34 Magnesium 1.7 Impressions Chest X-Ray 06/12/16 09:33 IMPRESSION: 1. No acute abnormality. D/ / Satish Poole MD / Satish Poole MD Interpreting Provider: Satish Poole MD Active Medications Acetaminophen (Tylenol) 500 mg PO Q6HR PRN PRN Reason: Mild Pain Stop: 12/10/16 09:48 Last Admin: 06/11/16 00:57 Dose: 500 mg Albuterol/Ipratropium (Duoneb) 3 ml IH [id number] PRN; Protocol PRN Reason: Shortness Of Breath/Wheezing Stop: 12/09/16 17:04 Last Admin: 06/10/16 04:40 Dose: 3 ml Aspirin (Aspirin) 325 mg PO DAILY [facility] Stop: 12/13/16 09:01 Atorvastatin Calcium (Lipitor) 10 mg PO HS PHONG Stop: 12/12/16 21:01 Last Admin: 06/12/16 21:04 Dose: 10 mg Citalopram Hydrobromide (Celexa) 40 mg PO DAILY [facility] Stop: 12/10/16 09:01 Last Admin: 06/12/16 09:56 Dose: 40 mg Dextrose/Water (Dextrose 50% (Syg)) 25 ml IVP AD PRN PRN Reason: Hypoglycemia Stop: 12/09/16 15:23 Digoxin (Lanoxin) 0.125 mg PO DAILY [facility] Stop: 12/12/16 09:01 Last Admin: 06/12/16 09:55 Dose: 0.125 mg Doxycycline Hyclate (Doxycycline) 100 mg PO BID [facility] Stop: 12/11/16 21:01 Last Admin: 06/12/16 21:04 Dose: 100 mg Fentanyl Citrate (Fentanyl (Pf)) 50 mcg IVP Q3MIN PRN PRN Reason: Sedation Stop: 12/11/16 13:31 Last Admin: 06/11/16 15:05 Dose: 25 mcg Gabapentin (Neurontin) 900 mg PO HS [facility] Stop: 12/09/16 21:01 Last Admin: 06/12/16 21:04 Dose: 900 mg Glucagon (Glucagen) 1 mg IM ONCE PRN PRN Reason: Hypoglycemia Stop: 12/09/16 15:23 Glucose (Gluctose) 15 gm PO ONCE PRN PRN Reason: Hypoglycemia Stop: 12/09/16 15:23 Glucose (Gluctose) 30 gm PO ONCE PRN PRN Reason: Hypoglycemia Stop: 12/09/16 15:23 Heparin Sodium (Porcine) (Heparin) 4,500 unit IVP Q6H PRN PRN Reason: SEE COMMENTS Stop: 12/10/16 11:50 Dextrose (Dextrose 5%) 1,000 mls @ 100 mls/hr IV CONT PRN PRN Reason: HYPOGLYCEMIA Stop: 12/09/16 15:23 Heparin Sodium/Dextrose (Heparin 25,000 Unit/500 Ml D5w) 25,000 unit in 500 mls @ 28.838 mls/hr IVC .[id number] PHONG; 14 UNIT/KG/HR PRN Reason: Protocol Stop: 12/10/16 12:01 Last Titration: 06/13/16 07:13 Dose: 10.86 unit/kg/hr, 22.38 mls/hr Ceftriaxone Sodium 1,000 mg/ (Dextrose) 100 mls @ 200 mls/hr IVPB DAILY [facility] Stop: 12/12/16 09:01 Last Infusion: 06/12/16 17:04 Dose: Infused Insulin Human Lispro (Humalog) 0 units SQ TIDAC [facility]ONG PRN Reason: Protocol Stop: 12/09/16 16:31 Last Admin: 06/12/16 17:05 Dose: Not Given Insulin Human Lispro (Humalog) 0 units SQ HS PHONG PRN Reason: Protocol Stop: 12/09/16 21:01 Last Admin: 06/12/16 21:05 Dose: Not Given Lorazepam (Ativan) 0.5 mg IVP Q4H PRN PRN Reason: Anxiety Stop: 12/11/16 02:01 Melatonin (Melatonin) 9 mg PO HS PHONG Stop: 12/10/16 21:01 Last Admin: 01/07/17 21:04 Dose: 9 mg Metoprolol Tartrate (Lopressor) 100 mg PO BID [facility] Stop: 12/12/16 21:01 Last Admin: 06/12/16 21:04 Dose: 100 mg Midazolam HCl (Versed) 2 mg IVP Q3MIN PRN PRN Reason: Sedation Stop: 12/11/16 13:31 Last Admin: 06/11/16 15:05 Dose: 2 mg Multi-Ingredient Mucositis [place] (Chloraseptic) 2 spray MM QID PRN PRN Reason: Sore Throat Stop: 12/12/16 09:33 Last Admin: 06/12/16 09:59 Dose: 2 spray Naloxone HCl (Narcan) 0.4 mg IVP Q2MIN PRN PRN Reason: Opioid Reversal Stop: 12/09/16 15:20 Ondansetron HCl (Zofran Odt) 4 mg SL Q6HR PRN PRN Reason: Nausea And Vomiting Stop: 12/09/16 15:20 Prednisone (Prednisone) 40 mg PO DAILY [facility] Stop: 12/12/16 09:01 Last Admin: 06/12/16 09:55 Dose: 40 mg Vitamin D (Vitamin D) 2,000 unit PO DAILY [facility] Stop: 12/10/16 09:01 Last Admin: 06/12/16 09:56 Dose: 2,000 unit Warfarin Sodium (Coumadin Perpt) 0 each PO DAILY@1800 PRN PRN Reason: SEE COMMENTS Stop: 12/11/16 18:01 - EKG Interpretation EKG results cardiology: other (Tele shows avg HR p[ast 12 hrs 116, aflutter) - VTE Documentation of Mechanical Device: Intermittent pneumatic compression device Consult Discharge Plan - Plan Referrals: Ward Mcmanus MD [Primary Care Provider] - 06/18/16 2:00 pm (Please follow up as schedule.Thanks)
[2016-06-13] MEDS: Insulin LISPRO 300 UNITS/3 ML VIAL SQ SCH ×4 (07:52→21:18)
[2016-06-13] MEDS: Doxycycline 100 MG CAPSULE PO SCH ×2 (08:21→21:19)
[2016-06-13] MEDS: Aspirin Enteric Coated 81 MG Tablet PO SCH (08:22)
[2016-06-13] MEDS: *HR* Digoxin 0.125 MG TABLET PO SCH (08:22)
[2016-06-13] MEDS: predniSONE 20 MG TABLET PO SCH (08:23)
[2016-06-13] MEDS: Cholecalciferol (D-3) 1,000 UNIT TABLET PO SCH (08:23)
[2016-06-13 08:24] LABS: Basophils % 0.4 %; Eosinophils # 0.1 K/mcL (0.0-0.6); Hematocrit 30.1 % (35.3-44.9); Hemoglobin 9.6 g/dL (11.5-15.4); Immature Granulocytes % 0.3 % (0-4); Lymphocytes # 2.8 K/mcL (0.6-4.6); Lymphocytes % 40.3 %; Mean Corpuscular HGB Conc 31.9 g/dL (31.6-35.5); Mean Corpuscular Hemoglobin 28.7 pg (28.0-33.3); Mean Corpuscular Volume 90.1 fL (83.0-100.0); Mean Platelet Volume 10.4 fL (9.4-12.4); Monocytes # 0.6 K/mcL (0.0-1.3); Monocytes % 8.4 %; Neutrophils # 3.4 K/mcL (1.6-8.9); Platelet Count 128 K/mcL (140-400); Red Blood Count 3.34 M/mcL (3.82-4.97); Red Cell Distribution Width 13.4 % (11.5-14.5); Segmented Neutrophils % 49.6 %
[2016-06-13 08:36] LABS: BUN/Creatinine Ratio 19 (6-26); Blood Urea Nitrogen 18 mg/dL (7-20); Calcium 9.6 mg/dL (8.6-10.8); Carbon Dioxide 22 mEq/L (19-29); Chloride 106 mEq/L (98-109); Glucose 175 mg/dL (70-99); Osmolality,Calculated 292 (280-300); Sodium 138 mEq/L (136-145); eGFR For African Americans > 60 (> 60); eGFR For Non-African Americans 60 (> 60)
[2016-06-13] MEDS: Heparin 25,000 UNIT/500 ML D5W 25,000 UNIT/500 ML MLS IVC SCH (08:54)
--- NOTE | 2016-06-13 08:55 | Internal Med Progress Note ---
<Paulina Chase - Last Filed: 06/13/16 13:12> Date of Encounter: 06/13/16 Time of Encounter: 08:40 - Assessment and plan (1) Atrial flutter with rapid ventricular response Current Visit: Yes Status: Acute Assessment and plan: Atypical A-Flutter as per cardio CTA negative for PE. TTE atrial flutter with [id number] LV systolic dysfunction, LVEF of 40% and global LV hypokinesis. Indeterminant diastolic function. JAUN left atrial appendage thrombus CHADSVASC score of 4 appropriate for a/c. Currently on heparin gtt bridge to coumadin therapy. Had previously inquired via SW regarding xarelto, but too expensive. Renal function is appropriate, if INR is not therapeutic tomorrow, may consider bridging with lovenox. Concerns shared with cardiology team, appreciate recs. (2) Thrombus of left atrial appendage Current Visit: Yes Status: Acute Assessment and plan: Per JAUN, warrants anticoagulation. Check daily INR until therapeutic. (3) Pneumonia Current Visit: Yes Status: Acute Assessment and plan: Mild right basilar, possible community acquired, started Doxy/Rocephin 06/11/16, Day #3 Qualifiers: Pneumonia type: due to unspecified organism Laterality: bilateral Lung location: unspecified part of lung Qualified Code(s): J18.9 - Pneumonia, unspecified organism (4) DVT prophylaxis Current Visit: Yes Status: Acute Assessment and plan: On heparin gtt. - Subjective Interval history: Patient seen/eval, daughter at bedside. Affirms events prompting hospitalization and interval events. Continues on heparin gtt, bridge to coumadin. She denies any chest pain/pressure, palpitations, no fever, chills, dyspnea, nvd. Had BM x 2 since admission, denies any gross blood, but reports history hemorrhoids. - Constitutional Vitals: Temp Pulse Resp BP Pulse Ox 97.3 F L 110 16 141/83 92 L 06/13/16 07:20 06/13/16 07:20 06/13/16 07:20 06/13/16 07:20 06/13/16 07:20 General appearance: Present: cooperative, A&O X 3, morbidly obese, no acute distress, answers questions appropriately - Head Head exam: Present: atraumatic, normocephalic - Eye Eye exam: Present: EOMI, sclera anicteric - ENT ENT exam: Present: mucous membranes moist - Neck Neck exam general surgery: Present: supple, trachea midline - Respiratory Respiratory exam: Absent: rhonchi, wheezes - Cardiovascular Cardiovascular exam: Present: irregular rhythm, +S1, +S2, tachycardia. Absent: JVD - GI/Abdominal GI/Abdominal exam: Present: soft, no peritoneal signs. Absent: tenderness - Extremities Exam Extremities exam: Present: warm, radial pulses palpable and symetrical. Absent : pedal edema Internal Medicine: Result - Labs CBC & Chem 7: 06/13/16 08:16 06/13/16 08:16 Labs: Short CBC 06/13/16 Range/Units 08:16 WBC 6.9 (4.3-11.1) K/mcL Hgb 9.6 L (11.5-15.4) g/dL Hct 30.1 L (35.3-44.9) % Plt Count 128 L (140-400) K/mcL Neutrophils # 3.4 (1.6-8.9) K/mcL BMP 06/13/16 08:16 Sodium 138 Potassium 4.0 Chloride 106 Carbon Dioxide 22 BUN 18 Creatinine 0.94 Glucose 175 H Calcium 9.6 - ABG Interpretation ABG results: PT/INR, D-dimer PT 15.9 Seconds (9.4-12.1) H 06/13/16 05:53 - VTE Documentation of Mechanical Device: Intermittent pneumatic compression device Consult Discharge Plan - Plan Referrals: Ward Mcmanus MD [Primary Care Provider] - 06/18/16 2:00 pm (Please follow up as schedule.Thanks) <Otis Gale - Last Filed: 06/13/16 15:34> - Constitutional Vitals: Temp Pulse Resp BP Pulse Ox 97.9 F 114 16 112/71 96 06/13/16 11:37 06/13/16 11:37 06/13/16 11:37 06/13/16 11:37 06/13/16 11:37 Internal Medicine: Result - Labs CBC & Chem 7: 06/13/16 08:16 06/13/16 08:16 Labs: Short CBC 06/13/16 Range/Units 08:16 WBC 6.9 (4.3-11.1) K/mcL Hgb 9.6 L (11.5-15.4) g/dL Hct 30.1 L (35.3-44.9) % Plt Count 128 L (140-400) K/mcL Neutrophils # 3.4 (1.6-8.9) K/mcL BMP 06/13/16 08:16 Sodium 138 Potassium 4.0 Chloride 106 Carbon Dioxide 22 BUN 18 Creatinine 0.94 Glucose 175 H Calcium 9.6 - ABG Interpretation ABG results: PT/INR, D-dimer PT 15.9 Seconds (9.4-12.1) H 06/13/16 05:53 - Attending Attestation I examined this patient and my medical decision-making was reviewed with the WILDLIFE VETERINARIAN/PA/Advanced Practice Nurse/Resident Physician. I agree with the documented findings, disposition and treatment plan as described except to the extent set forth below. Continue with AC. Antibiotics due to possible CAP. Monitor coags.
[2016-06-13] MEDS ORDERED: Aspirin 325 MG TABLET PO SCH (09:00)
[2016-06-13] MEDS: Metoprolol XL (24 HR) Succ 50 MG TAB.ER.24H PO SCH ×2 (12:23→21:19)
[2016-06-13] MEDS ORDERED: *HR* Warfarin 7.5 MG TABLET PO ONE (18:00)
[2016-06-13] MEDS: Gabapentin 300 MG CAPSULE PO SCH (21:19)
[2016-06-13] MEDS: Melatonin 3 MG TABLET PO SCH (21:19)
[2016-06-14 04:28] LABS: Hematocrit 29.1 % (35.3-44.9); Hemoglobin 9.4 g/dL (11.5-15.4); Mean Corpuscular HGB Conc 32.3 g/dL (31.6-35.5); Mean Corpuscular Hemoglobin 29.4 pg (28.0-33.3); Mean Corpuscular Volume 90.9 fL (83.0-100.0); Mean Platelet Volume 10.3 fL (9.4-12.4); Platelet Count 129 K/mcL (140-400); Red Cell Distribution Width 13.7 % (11.5-14.5)
[2016-06-14 04:38] LABS: Activated Partial Thrombo Time 75.6 Seconds (26.0-36.0); INR 2.3; Prothrombin Time 25.9 Seconds (9.4-12.1)
[2016-06-14 04:40] LABS: BUN/Creatinine Ratio 22 (6-26); Blood Urea Nitrogen 19 mg/dL (7-20); Calcium 9.4 mg/dL (8.6-10.8); Carbon Dioxide 21 mEq/L (19-29); Chloride 107 mEq/L (98-109); Glucose 133 mg/dL (70-99); Osmolality,Calculated 290 (280-300); Potassium 4.1 mEq/L (3.5-4.5); Sodium 138 mEq/L (136-145); eGFR For African Americans > 60 (> 60); eGFR For Non-African Americans > 60 (> 60)
[2016-06-14] MEDS: Insulin LISPRO 300 UNITS/3 ML VIAL SQ SCH ×3 (07:37→16:31)
[2016-06-14] MEDS: Doxycycline 100 MG CAPSULE PO SCH (08:24)
[2016-06-14] MEDS: Aspirin Enteric Coated 81 MG Tablet PO SCH (08:25)
[2016-06-14] MEDS: predniSONE 20 MG TABLET PO SCH (08:25)
[2016-06-14] MEDS: Metoprolol XL (24 HR) Succ 50 MG TAB.ER.24H PO SCH (08:25)
[2016-06-14] MEDS: *HR* Digoxin 0.125 MG TABLET PO SCH (08:25)
[2016-06-14] MEDS: Cholecalciferol (D-3) 1,000 UNIT TABLET PO SCH (08:25)
[2016-06-14] MEDS: Heparin 25,000 UNIT/500 ML D5W 25,000 UNIT/500 ML MLS IVC SCH (08:26)
--- NOTE | 2016-06-14 08:36 | Internal Med Progress Note ---
Date of Encounter: 06/14/16 Time of Encounter: 08:00 - Assessment and plan (1) Atrial flutter with rapid ventricular response Current Visit: Yes Status: Acute Assessment and plan: Atypical A-Flutter as per cardio CTA negative for PE. TTE atrial flutter with [id number] LV systolic dysfunction, LVEF of 40% and global LV hypokinesis. Indeterminant diastolic function. JAUN left atrial appendage thrombus CHADSVASC score of 4 appropriate for a/c. Currently on heparin gtt bridge to coumadin therapy. Had previously inquired via SW regarding xarelto, but too expensive. 06/14/16 INR 2.3 Resting heart rate is in the 120's, appreciate cardiology input regarding titration for rate control. (2) Thrombus of left atrial appendage Current Visit: Yes Status: Acute Assessment and plan: Per JAUN, warrants anticoagulation. Check daily INR until therapeutic. 06/14/16: INR 2.3 (3) Pneumonia Current Visit: Yes Status: Acute Assessment and plan: Mild right basilar, possible community acquired, started Doxy/Rocephin 06/11/16, Day #4 Qualifiers: Qualified Code(s): J18.9 - Pneumonia, unspecified organism (4) DVT prophylaxis Current Visit: Yes Status: Acute Assessment and plan: On heparin gtt. INR therapeutic. - Subjective Interval history: Patient seen/eval, she is eating breakfast, continues on heparin gtt, bridge to coumadin. She denies any chest pain/pressure. She is speaking comfortably and denies any dyspnea, or palpitations, resting HR is 120's. No fever, chills, abdominal pain, nvd. No bloody bm noted. - Constitutional Vitals: Temp Pulse Resp BP Pulse Ox 97.6 F 119 18 140/92 92 L 06/14/16 06:56 06/14/16 06:56 06/14/16 06:56 06/14/16 06:56 06/14/16 06:56 General appearance: Present: cooperative, A&O X 3, morbidly obese, no acute distress, answers questions appropriately - Head Head exam: Present: atraumatic, normocephalic - Eye Eye exam: Present: EOMI, sclera anicteric - ENT ENT exam: Present: mucous membranes moist - Neck Neck exam general surgery: Present: supple, trachea midline - Respiratory Respiratory exam: Present: decreased breath sounds (2* habitus). Absent: accessory muscle use, wheezes - Cardiovascular Cardiovascular exam: Present: irregular rhythm (c/w AF), +S1, +S2, tachycardia ( 120's) - GI/Abdominal GI/Abdominal exam: Present: soft, no peritoneal signs. Absent: tenderness - Extremities Exam Extremities exam: Present: warm, radial pulses palpable and symetrical. Absent : pedal edema Internal Medicine: Result - Labs CBC & Chem 7: 06/14/16 04:17 06/14/16 04:17 Labs: Short CBC 06/14/16 Range/Units 04:17 WBC 7.4 (4.3-11.1) K/mcL Hgb 9.4 L (11.5-15.4) g/dL Hct 29.1 L (35.3-44.9) % Plt Count 129 L (140-400) K/mcL BMP 06/13/16 06/14/16 08:16 04:17 Sodium 138 138 Potassium 4.0 4.1 Chloride 106 107 Carbon Dioxide 22 21 BUN 18 19 Creatinine 0.94 0.85 Glucose 175 H 133 H Calcium 9.6 9.4 - ABG Interpretation ABG results: PT/INR, D-dimer PT 25.9 Seconds (9.4-12.1) H D 06/14/16 04:17 - VTE Documentation of Mechanical Device: Intermittent pneumatic compression device Consult Discharge Plan - Plan Referrals: Ward Mcmanus MD [Primary Care Provider] - 06/18/16 2:00 pm (Please follow up as schedule.Thanks)
--- NOTE | 2016-06-14 08:37 | Cardiology Progress Note ---
Date of Encounter: 06/14/16 Time of Encounter: 09:00 Assessment and Plan (1) Pneumonia Current Visit: Yes Status: Acute Per Cardiology: Bibasilar pneumonia being managed by primary service. On antibiotics, nebs, and steroids. Afebrile and no leukocytosis noted. Suspect contributing factor to aflutter with RVR. Qualifiers: Pneumonia type: due to unspecified organism Laterality: bilateral Lung location: unspecified part of lung Qualified Code(s): J18.9 - Pneumonia, unspecified organism (2) Atrial flutter with rapid ventricular response Current Visit: Yes Status: Acute Per Cardiology: Remains tachy with atypical A-Flutter with HR 110's. Status post JAUN with plans for DC cardioversion, however found to have a small echodensity suggestive of thrombus visualized in left atrial appendage. On Toprol XL 100mg PO BID. Most recent systolic blood pressure 140's. Patient is status post digoxin IV load and now on 0.125 mg by mouth daily. CT negative for PE. TSH okay. Echocardiogram shows EF 40%, moderately dilated left atrium, mildly dilated right atrium, mild MR, mild TR, no evidence of pulmonary hypertension. Discussed with Dr. Wilson will increase Toprol XL. Will re-evaluate HR this afternoon. CHADSVASC score of 4 (Age, HTN, DM, CAD). Pt has a history of GI bleed in 2010, but per pt and daughter she was taking full dose ASA multiple times per day for dental pain, which likely caused the bleeding. On asa, IV Hep gtt, and Coumadin. H&H appears stable. INR now 2.3, will DC IV Hep gtt. (3) Thrombus of left atrial appendage Current Visit: Yes Status: Acute Per Cardiology: Status post JAUN for possible DC cardioversion, however findings of small echodensity suggestive of thrombus visualized left atrial appendage. On Coumadin with INR today 2.3, stopping IV Hep gtt. Target INR 2.0-3.0. (4) CAD (coronary artery disease) Current Visit: Yes Status: Chronic Per Cardiology: History of 3 vessel CABG in 1994. Reports chest soreness since her CABG. No LHC since CABG. Echocardiogram shows EF of 40%, upon review of medical records no previous EF noted. Troponin negative 1. Patient and family agreeable for no LHC for now, can consider in outpatient setting. On BB, asa, statin. Qualifiers: Coronary Disease-Associated Artery/Lesion type: unspecified vessel or lesion type [place] vs. transplanted heart: [place] heart Associated angina: without angina Qualified Code(s): I25.10 - Atherosclerotic heart disease of [place] coronary artery without angina pectoris (5) CHF (congestive heart failure) Current Visit: Yes Status: Chronic Per Cardiology: EF noted to be 40%. No previous records available for comparison. BNP in the 700s. Euvolemic on exam. Qualifiers: Congestive heart failure type: systolic Congestive heart failure chronicity : unspecified congestive heart failure chronicity Qualified Code(s): I50.20 - Unspecified systolic (congestive) heart failure (6) Hypomagnesemia Current Visit: Yes Status: Acute Per Cardiology: Replaced. Discussion w patient/family: The assessment and plan as outlined above was discussed with the patient and/or family members who expressed understanding and agreement. All questions were answered. Thank you for involving us in the care of your patient. Please call with any questions. Subjective Principal diagnosis: Aflutter RVR Interval history: Patient denies any CP, SOB, Palps. Denies any active bleeding or blood loss. Objective Vital Signs, Last 4 Hours Temp Pulse Resp BP Pulse Ox 06/14/16 06:56 97.6 F 119 18 140/92 92 L 06/14/16 04:48 97.6 F 120 18 143/88 97 General: Conversant, No Apparent Distress HEENT: Atraumatic, Normocephaly, Mucus Membranes Moist Cardiac: Reg Rate and Rhythm, Normal S1 and S2, No Murmur Lungs: Normal Breath Sounds, No Wheeze, Rales, Rhonchi Neuro: Alert and responsive, No focal deficits noted Extremities: No Edema Results 06/14/16 04:17 06/14/16 04:17 Lab Results Laboratory Tests 06/14/16 04:17 INR 2.3 D Active Medications Acetaminophen (Tylenol) 500 mg PO Q6HR PRN PRN Reason: Mild Pain Stop: 12/10/16 09:48 Last Admin: 06/11/16 00:57 Dose: 500 mg Albuterol/Ipratropium (Duoneb) 3 ml IH [id number] PRN; Protocol PRN Reason: Shortness Of Breath/Wheezing Stop: 12/09/16 17:04 Last Admin: 06/10/16 04:40 Dose: 3 ml Aspirin (Aspirin Ec) 81 mg PO DAILY [facility] Stop: 12/13/16 09:01 Last Admin: 06/13/16 08:22 Dose: 81 mg Atorvastatin Calcium (Lipitor) 10 mg PO HS [facility] Stop: 12/12/16 21:01 Last Admin: 06/13/16 21:19 Dose: 10 mg Citalopram Hydrobromide (Celexa) 40 mg PO DAILY [facility] Stop: 12/10/16 09:01 Last Admin: 06/13/16 08:21 Dose: 40 mg Dextrose/Water (Dextrose 50% (Syg)) 25 ml IVP AD PRN PRN Reason: Hypoglycemia Stop: 12/09/16 15:23 Digoxin (Lanoxin) 0.125 mg PO DAILY [facility] Stop: 12/12/16 09:01 Last Admin: 06/13/16 08:22 Dose: 0.125 mg Doxycycline Hyclate (Doxycycline) 100 mg PO BID [facility] Stop: 12/11/16 21:01 Last Admin: 06/13/16 21:19 Dose: 100 mg Fentanyl Citrate (Fentanyl (Pf)) 50 mcg IVP Q3MIN PRN PRN Reason: Sedation Stop: 12/11/16 13:31 Last Admin: 06/11/16 15:05 Dose: 25 mcg Gabapentin (Neurontin) 900 mg PO HS [facility] Stop: 12/09/16 21:01 Last Admin: 06/13/16 21:19 Dose: 900 mg Glucagon (Glucagen) 1 mg IM ONCE PRN PRN Reason: Hypoglycemia Stop: 12/09/16 15:23 Glucose (Gluctose) 15 gm PO ONCE PRN PRN Reason: Hypoglycemia Stop: 12/09/16 15:23 Glucose (Gluctose) 30 gm PO ONCE PRN PRN Reason: Hypoglycemia Stop: 12/09/16 15:23 Dextrose (Dextrose 5%) 1,000 mls @ 100 mls/hr IV CONT PRN PRN Reason: HYPOGLYCEMIA Stop: 12/09/16 15:23 Ceftriaxone Sodium 1,000 mg/ (Dextrose) 100 mls @ 200 mls/hr IVPB DAILY [facility] Stop: 12/12/16 09:01 Last Admin: 06/13/16 08:23 Dose: 200 mls/hr Insulin Human Lispro (Humalog) 0 units SQ TIDAC [facility] PRN Reason: Protocol Stop: 12/09/16 16:31 Last Admin: 06/14/16 07:37 Dose: Not Given Insulin Human Lispro (Humalog) 0 units SQ HS [facility] PRN Reason: Protocol Stop: 12/09/16 21:01 Last Admin: 06/13/16 21:18 Dose: Not Given Lorazepam (Ativan) 0.5 mg IVP Q4H PRN PRN Reason: Anxiety Stop: 12/11/16 02:01 Melatonin (Melatonin) 9 mg PO HS [facility] Stop: 12/10/16 21:01 Last Admin: 06/13/16 21:19 Dose: 9 mg Metoprolol Succinate (Toprol Xl) 100 mg PO BID [facility] Stop: 12/13/16 09:01 Last Admin: 06/13/16 21:19 Dose: 100 mg Midazolam HCl (Versed) 2 mg IVP Q3MIN PRN PRN Reason: Sedation Stop: 12/11/16 13:31 Last Admin: 06/11/16 15:05 Dose: 2 mg Multi-Ingredient Mucositis [place] (Chloraseptic) 2 spray MM QID PRN PRN Reason: Sore Throat Stop: 12/12/16 09:33 Last Admin: 06/12/16 09:59 Dose: 2 spray Naloxone HCl (Narcan) 0.4 mg IVP Q2MIN PRN PRN Reason: Opioid Reversal Stop: 12/09/16 15:20 Ondansetron HCl (Zofran Odt) 4 mg SL Q6HR PRN PRN Reason: Nausea And Vomiting Stop: 12/09/16 15:20 Last Admin: 06/13/16 16:39 Dose: 4 mg Prednisone (Prednisone) 40 mg PO DAILY [facility] Stop: 12/12/16 09:01 Last Admin: 06/13/16 08:23 Dose: 40 mg Vitamin D (Vitamin D) 2,000 unit PO DAILY [facility] Stop: 12/10/16 09:01 Last Admin: 06/13/16 08:23 Dose: 2,000 unit Warfarin Sodium (Coumadin Perpt) 0 each PO DAILY@1800 PRN PRN Reason: SEE COMMENTS Stop: 12/11/16 18:01 - EKG Interpretation EKG results cardiology: other (Remains atypical flutter on telemetry with heart rate 115 to 120) - VTE Documentation of Mechanical Device: Intermittent pneumatic compression device Consult Discharge Plan - Plan Referrals: Ward Mcmanus MD [Primary Care Provider] - 06/18/16 2:00 pm (Please follow up as schedule.Thanks)
--- NOTE | 2016-06-14 08:58 | Electrocardiograph Report ---
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
[2016-06-14 10:09] LABS: INR 2.7
[2016-06-14] MEDS ORDERED: Metoprolol XL (24 HR) Succ 50 MG TAB.ER.24H PO ONE (11:51)
--- NOTE | 2016-06-14 12:05 | Electrocardiograph Report ---
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
--- NOTE | 2016-06-14 13:26 | Event Note ---
Date of Encounter: 06/14/16 Time of Encounter: 13:20 - Cardiology Event Note Heart rate remains 116-120 on telemetry, atypical aflutter. Patient remains asymptomatic. Status post increased dose of beta marva. Discussed and reviewed with Dr. Wilson, will sign off, re-consult as needed, follow-up as outpatient. Okay from a cardiac standpoint to DC to home, however recommend close outpatient follow-up and consideration of repeat JAUN in a few weeks. Patient verbalized understanding and agreed with plan.
--- NOTE | 2016-06-14 15:25 | Discharge Summary ---
<Paulina Chase - Last Filed: 06/14/16 17:12> Date of Encounter: 06/14/16 Time of Encounter: 15:00 - Discharge Diagnosis (1) Atrial flutter with rapid ventricular response Priority: Primary Status: Acute (2) Thrombus of left atrial appendage Priority: Secondary Status: Acute (3) Pneumonia Priority: Primary Status: Acute Qualifiers: Pneumonia type: due to unspecified organism Laterality: bilateral Lung location: unspecified part of lung Qualified Code(s): J18.9 - Pneumonia, unspecified organism (4) DVT prophylaxis Priority: Secondary Status: Acute - Discharge Medications Prescriptions: Aspirin Enteric Coated [Aspirin EC] 81 mg PO DAILY #30 tablet. Atorvastatin [Lipitor] 10 mg PO HS #30 tablet Cefdinir [Omnicef] 300 mg PO BID #6 capsule Digoxin [Lanoxin] 0.125 mg PO DAILY #30 tablet Doxycycline 100 mg PO BID #6 capsule Metoprolol XL (24 HR) Succ [Toprol Xl] 150 mg PO BID #180 tab.er.24h PredniSONE 40 mg PO DAILY #4 tablet Warfarin [Coumadin] 4 mg PO 1800 #20 tablet Home Medications: Cholecalciferol (D-3) [Vitamin D] 2,000 unit PO DAILY 04/18/16 [History] Citalopram Hydrobromide [Celexa] 40 mg PO DAILY 04/18/16 [History] Diphenoxylate/Atropine [Lomotil 2.5 mg/0.025 mg] 1 tab PO BID PRN 04/18/16 [ History] Gabapentin [Neurontin] 900 mg PO HS 04/18/16 [History] Losartan/Hydrochlorothiazide [Hyzaar 100-12.5 Tablet] 1 tab PO DAILY 04/18/16 [ History] Metformin HCl [Metformin HCl ER] 500 mg PO BID 04/18/16 [History] Aspirin Enteric Coated [Aspirin EC] 81 mg PO DAILY #30 tablet. 06/14/16 [Rx] Atorvastatin [Lipitor] 10 mg PO HS #30 tablet 06/14/16 [Rx] Cefdinir [Omnicef] 300 mg PO BID #6 capsule 06/14/16 [Rx] Digoxin [Lanoxin] 0.125 mg PO DAILY #30 tablet 06/14/16 [Rx] Doxycycline 100 mg PO BID #6 capsule 06/14/16 [Rx] Metoprolol XL (24 HR) Succ [Toprol Xl] 150 mg PO BID #180 tab.er.24h 06/14/16 [ Rx] PredniSONE 40 mg PO DAILY #4 tablet 06/14/16 [Rx] Warfarin [Coumadin] 4 mg PO 1800 #20 tablet 06/14/16 [Rx] Allergies/Adverse Reactions: Allergies No Known Allergies Allergy (Verified 06/12/16 09:27) Date of admission: 06/12/16 16:52 Primary care physician: Ward Mcmanus MD Consults: Cardiology: New onset Aflutter, anticoagulation and rate control Discharging clinician: Otis Gale Anticipated date of discharge: 06/14/16 - Patient Status Disposition: Home, Self-Care Condition: Fair Functional capacity at discharge: independent ambulation Overall status at discharge: patient is progressing back to baseline - Discharge Instructions Follow Up With: Ward Mcmanus MD [Primary Care Provider] - 06/18/16 2:00 pm (Please follow up as schedule.Thanks) Additional Instructions: [facility] - Main [address] [place] [address] [place] [address] Hours of Operation: Tuesday 8am-5:30pm (by appointment only) Please make earliest appointment within 1 week. - Diet and Activity Activity: increase activity as tolerated Diet: low fat, low cholesterol, low salt diet Hospital course: Ms. Hernández is a 65 year old female who was seen at PCP office, found to have new onset Atrial Flutter, sent to [facility] for further evaluation. Patient would present to [facility] with chief concern: Aflutter and dyspnea. Comorbidities would include: HTN, DM, CABG in 95, HLD, Breast Ca s/p right breastectomy and chemotherapy 13 years ago (in remission), Former smoker-quit 12 years ago, denies alcohol or any illicit drug use. Initial impression new onset Aflutter with rapid ventricular response. CXR with infiltrate consistent with community acquired pneumonia. She was started on empiric antibiotics, improved clinically. Commenced on rate control with cardizem gtt, cardiology service consulted for new onset Aflutter with RVR. Hgb was monitored, no signs of active bleed. Would be appropriate for long-term anticoagulation given CHADSVASC score of 4 (Age, HTN, DM, CAD). Per Cardiology: had a discussion about proceeding with LHC to determine if newly developed AF is being driven by ischemia. Her LV systolic function is reduced. However, the patient is scared to undergo the procedure and there is another daughter who was not present who told the family not to do it. The patient is not having chest pain. I had a conversation with the Junior Accounting Clerk as well. It is reasonable to rate control her and consider LHC as an outpatient if LV function does not improve after dysrhythmia is addressed since reduced EF is most likely secondary to tachycardia induced cardiomyopathy. The patient opted not to undergo LHC. Echo EF 40%. Mild MR and TR. Global hypokinesis--suspect tachycardia induced, although cannot rule out ischemic cause. She would be prepped for JAUN/DCCV She would undergo Transesophageal echo disclosing Left atrial appendage Thrombus. Subsequently, she had to be bridged to coumadin. SW consult to consider Xarelto , however the financial costs were too high so patient opted for coumadin. Hospital course: She would commence on heparin gtt, coumadin dosing and monitoring of INR and hemodynamics. The cardiology service would increase her metoprolol XL regimen: 150mg PO BID, along with digoxin. The patient continued to have tachycardia, HR 120's at rest. She was affirming no chest pain, dyspnea, palpitations, or lightheadedness. Patient would remain asymptomatic. Consensus with cardiology service that she may be discharged to home with close outpatient follow-up, consideration of repeat JAUN in a few weeks. Patient verbalized understanding and agreed with plan. 06/14/16 INR was therapeutic, with target 2.0 - 3.0. Discussed with clinical pharmacist regarding optimal regimen; Patient will go home on coumadin 4mg PO daily. She will have coumadin clinic on 06/16/16 Wed at 0800. At time of discharge, patient was clinically improved, hemodynamically stable, progressing to baseline, and agreeable with plan of care. She will finish course of antibiotics for pneumonia. To take coumadin as prescribed, daily, advised strict compliance. Patient was advised to seek immediate medical attention for any new or worsening symptoms including but not limited to fever, chills, chest pain, chest pressure, dyspnea, cough, abdominal pain, nausea, vomiting, diarrhea, bloody stool, urine and the patient voiced understanding. Patient will follow-up with primary care physician: Ward Mcmanus. Follow-up at [facility] (Coumadin clinic) 06/16/16 Wed at 0800. - Time Spent with Patient Total time spent providing and/or coordinating discharge services: Greater than 30 minutes - Constitutional Vitals: Temp Pulse Resp BP Pulse Ox 98.3 F 123 20 141/85 95 06/14/16 11:08 06/14/16 11:08 06/14/16 11:08 06/14/16 11:08 06/14/16 11:08 General appearance: Present: cooperative, A&O X 3, morbidly obese, no acute distress, answers questions appropriately - Head Head exam: Present: atraumatic, normocephalic - Eye Eye exam: Present: EOMI, sclera anicteric - ENT ENT exam: Present: mucous membranes moist - Neck Neck exam general surgery: Present: supple, trachea midline - Respiratory Respiratory exam: Present: decreased breath sounds (2* habitus). Absent: rhonchi, wheezes - Cardiovascular Cardiovascular exam: Present: irregular rhythm (aflutter), +S1, +S2, tachycardia (120's at rest). Absent: JVD - GI/Abdominal GI/Abdominal exam: Present: soft. Absent: tenderness - Extremities Exam Extremities exam: Present: warm, radial pulses palpable and symetrical. Absent : pedal edema - Neurological Exam Neurological exam: Present: strengths equal and symetr throughout. Absent: facial droop, speech deficit - VTE Documentation of Mechanical Device: Intermittent pneumatic compression device <Otis Gale - Last Filed: 06/14/16 17:30> Date of admission: 06/12/16 16:52 Primary care physician: Ward Mcmanus MD Hospital course: Ms. Hernández is a 65 year old female - Time Spent with Patient Total time spent providing and/or coordinating discharge services: - Constitutional Vitals: Temp Pulse Resp BP Pulse Ox 97.5 F L 119 18 159/99 95 06/14/16 16:18 06/14/16 16:18 06/14/16 16:18 06/14/16 16:18 06/14/16 16:18 - Attending Attestation I examined this patient and my medical decision-making was reviewed with the BEAM DYER RECESSED VAT/PA/Advanced Practice Nurse/Resident Physician. I agree with the documented findings, disposition and treatment plan as described except to the extent set forth below. Atrial fibrillation with evidence of left atrial thrombus. CAP, doing well on antibiotics. Otherwise stable, INR therapeutic, she was bridged with heparin drip. However, her heart rate is not yet fully controlled. Cardiology following, discharge today.
[2016-06-14 16:19] VITALS: BP 159/99
[2016-06-14] MEDS ORDERED: *HR* Warfarin 3 MG TABLET PO ONE (18:00)
[2016-06-14] MEDS ORDERED: Metoprolol XL (24 HR) Succ 50 MG TAB.ER.24H PO SCH (21:00)
== END 2016-06-14 20:05 | disposition home or self-care (01) | DRG 308 ==
LOC: 3BNU 13:02 → EMEROO 13:02 → 3BNU 15:32 → 2ANU 06-10 01:30 → SUATTDRO 06-12 16:52
PROVIDERS: ADMIT Internal Medicine; ATTEND Internal Medicine

== ENCOUNTER 2016-07-23 15:45 | Inpatient (IN) ==
[2016-07-23] MEDS ORDERED: Ipratropium/Albuterol Neb 3 ML IH ONE (16:14)
--- NOTE | 2016-07-23 16:17 | Emergency Department Note ---
Disposition Clinical Impression: Atrial flutter with rapid ventricular response CHF (congestive heart failure) Qualifiers: Congestive heart failure type: unspecified congestive heart failure type Congestive heart failure chronicity: acute Qualified Code(s): I50.9 - Heart failure, unspecified Dyspnea Qualifiers: Dyspnea type: orthopnea Qualified Code(s): R06.01 - Orthopnea Disposition: Admitted As Inpatient Referrals: Ward Mcmanus MD [Primary Care Provider] - Forms: ED Satisfaction Letter SOB HPI - General Chief Complaint: ED Shortness of Breath/Dyspnea Stated Complaint: SOB Source: patient, family Limitations: no limitations Nursing Notes Reviewed: Yes Vital Signs Reviewed: Yes - History of Present Illness Patient is a 65-year-old female who has a blood clot in her atrium and a history of difficult to control atrial flutter is here for dyspnea and tachycardia. 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 Pt Subjective Complaint: shortness of breath Onset (ago): day(s) (3) Severity: moderate Consistency/Duration: constant, gradually worsening Improves with: oxygen, rest Worsens with: lying flat, exertion, coughing Known history of: congestive heart failure Associated symptoms: Reports: chest pain (Right-sided), pain with inspiration, orthopnea. Denies: sputum production, lower extremity pain, diaphoresis, nausea /vomiting, syncope, abdominal pain Treatment prior to arrival: none Cough present: No - Related Data Home Medications Medication Instructions Recorded Confirmed Cholecalciferol (D-3) [Vitamin D] 2,000 unit PO DAILY 04/18/16 06/09/16 Citalopram Hydrobromide [Celexa] 40 mg PO DAILY 04/18/16 06/09/16 Diphenoxylate/Atropine [Lomotil 1 tab PO BID PRN 04/18/16 06/09/16 2.5 mg/0.025 mg] Gabapentin [Neurontin] 900 mg PO HS 04/18/16 06/09/16 Losartan/Hydrochlorothiazide 1 tab PO DAILY 04/18/16 06/09/16 [Hyzaar 100-12.5 Tablet] Metformin HCl [Metformin HCl ER] 500 mg PO BID 04/18/16 06/09/16 Previous Rx's Medication Instructions Recorded Aspirin Enteric Coated [Aspirin EC] 81 mg PO DAILY #30 tablet. 06/14/16 Atorvastatin [Lipitor] 10 mg PO HS #30 tablet 06/14/16 Cefdinir [Omnicef] 300 mg PO BID #6 capsule 06/14/16 Digoxin [Lanoxin] 0.125 mg PO DAILY #30 tablet 06/14/16 Doxycycline 100 mg PO BID #6 capsule 06/14/16 Metoprolol XL (24 HR) Succ [Toprol 150 mg PO BID #180 tab.er.24h 06/14/16 Xl] PredniSONE 40 mg PO DAILY #4 tablet 06/14/16 Warfarin [Coumadin] 4 mg PO 1800 #20 tablet 06/14/16 Allergies Allergy/AdvReac Type Severity Reaction Status Date / Time No Known Allergies Allergy Verified 06/12/16 09:27 All systems ED: reviewed and negative except as stated. Constitutional: Reports: weakness. Denies: fever, chills Cardiovascular: Reports: chest pain (Excited), dyspnea on exertion, orthopnea Gastrointestinal: Denies: abdominal pain, nausea, vomiting Past Medical History - Past Medical History Source: patient, old records reviewed, nursing notes reviewed Medical history: Reports: cancer, coronary artery disease, diabetes, hyperlipidemia, hypertension Surgical history: Reports: appendectomy, breast surgery, coronary bypass (CABG) Psychiatric history: Reports: anxiety - Social History Smoking Status: Former smoker Smokeless Tobacco Status: No Alcohol use: Reports: none Drug use: Reports: none Physical Exam - General Limitations: no limitations General appearance: alert, in distress (Patient appears dyspneic at rest) - Head Head exam: atraumatic, normocephalic, normal inspection - Eye Eye exam: Present: normal appearance, PERRL, EOMI - Expanded Eye Exam Pupils: Left: reactive - ENT ENT exam: normal exam, normal oropharynx, mucous membranes moist - Expanded ENT Exam External ear exam: Present: normal external inspection Mouth exam: Present: normal external inspection Teeth exam: Present: normal inspection Throat exam: Present: normal inspection - Neck Neck exam: Present: normal inspection, full ROM, trachea midline - Chest Chest inspection: Present: normal inspection, symmetric chest wall rise - Respiratory Respiratory exam: Present: normal lung sounds bilaterally - Cardiovascular Cardiovascular exam: Present: tachycardia - Abdominal Exam Abdominal exam: Present: soft, Non-Tender. Absent: tenderness, distention, guarding, rebound, rigidity - Extremities Exam Extremities exam: Present: normal inspection, full ROM. Absent: tenderness, pedal edema - Expanded Upper Extremity Exam Shoulder exam: Present: normal inspection, full ROM Arm exam: Present: normal inspection, full ROM Elbow exam: Present: normal inspection, full ROM Forearm/Wrist exam: Present: normal inspection, full ROM Hand exam: Present: normal inspection, full ROM Vascular exam: Normal: capillary refill, radial pulse - Expanded Lower Extremity Exam Hip/Pelvis exam: Present: normal inspection, full ROM Upper leg exam: Present: normal inspection, full ROM Knee exam: Present: normal inspection, full ROM Lower leg exam: Present: normal inspection, full ROM Ankle exam: Present: normal inspection, full ROM Foot/toe exam: Present: normal inspection, full ROM Neurovascular/Tendon exam: Absent: motor deficit, sensory deficit, tendon deficit - Back Exam Back exam: Present: normal inspection, full ROM. Absent: tenderness - Neurological Exam Neurological exam: Present: alert, oriented X3 - Expanded Neurological Exam Patient oriented to: Present: person, place, time Coma Scale Eye Opening: Spontaneous Coma Scale Motor Response: Obeys Commands Coma Scale Verbal Response: Oriented Coma Scale Total: 15 - Psychiatric Psychiatric exam: Present: normal affect, normal mood - Skin Skin exam: Present: warm, dry, intact, normal color Course Vital Signs Temperature 98.2 F 07/23/16 15:52 Pulse Rate 116 07/23/16 15:52 Respiratory Rate 18 07/23/16 15:52 Blood Pressure 146/79 07/23/16 15:52 O2 Sat by Pulse Oximetry 96 07/23/16 15:52 Temperature 98.2 F 07/23/16 15:52 Pulse Rate 116 07/23/16 15:52 Respiratory Rate 18 07/23/16 16:21 Blood Pressure 146/79 07/23/16 15:52 O2 Sat by Pulse Oximetry 98 07/23/16 16:21 Oxygen Delivery Oxygen Delivery Room Air Shortness of Breath/Dyspnea - MDM Narrative Medical decision making narrative: I spoke with Dr. Chasidy giron diuresis patient try to get better rate control to see if we can improve her symptoms admitted to the hospitalist service Tia Goodrich NP to admit - Differential Diagnosis Likely: acute exacerbation of chronic obstructive airways disease, congestive heart failure, pneumonia, asthma with exacerbation, arrhythmia - Medical Records Medical records reviewed: Yes I reviewed the patient's medical records. - Lab Data Lab results reviewed: Yes I reviewed the patient's lab results. Result diagrams: 07/23/16 16:24 07/23/16 16:24 Lab Results 07/23/16 07/23/16 07/23/16 Range/Units 16:24 16:24 16:24 WBC 5.5 (4.3-11.1) K/mcL RBC 2.96 L (3.82-4.97) M/mcL Hgb 8.4 L (11.5-15.4) g/dL Hct 26.6 L (35.3-44.9) % MCV 89.9 (83.0-100.0) fL MCH 28.4 (28.0-33.3) pg MCHC 31.6 (31.6-35.5) g/dL RDW 15.0 H (11.5-14.5) % Plt Count 153 (140-400) K/mcL MPV 10.5 (9.4-12.4) fL Immature Gran % 0.4 (0-4) % Seg Neutrophils % 53.8 % Lymphocytes % 33.3 % Monocytes % 10.0 % Eosinophils % 2.0 % Basophils % 0.5 % Neutrophils # 3.0 (1.6-8.9) K/mcL Lymphocytes # 1.8 (0.6-4.6) K/mcL Monocytes # 0.6 (0.0-1.3) K/mcL Eosinophils # 0.1 (0.0-0.6) K/mcL Basophils # 0.0 (0.0-0.2) K/mcL PT (9.4-12.1) Seconds INR Sodium 141 (136-145) mEq/L Potassium 3.8 (3.5-4.5) mEq/L Chloride 107 (98-109) mEq/L Carbon Dioxide 21 (19-29) mEq/L BUN 16 (7-20) mg/dL Creatinine 0.97 (0.57-1.11) mg/dL Est GFR ( Amer) > 60 (> 60) Est GFR (Non-Af Amer) 57 L (> 60) BUN/Creatinine Ratio 16 (6-26) Glucose 143 H (70-99) mg/dL Calculated Osmolality 296 (280-300) Calcium 9.1 (8.6-10.8) mg/dL Magnesium (1.6-2.6) mg/dL Troponin I 0.01 (0-0.03) ng/mL B-Natriuretic Peptide (0-100) pg/mL Digoxin 0.7 L (0.8-2.0) ng/mL 07/23/16 07/23/16 07/23/16 Range/Units 16:24 16:24 16:24 WBC (4.3-11.1) K/mcL RBC (3.82-4.97) M/mcL Hgb (11.5-15.4) g/dL Hct (35.3-44.9) % MCV (83.0-100.0) fL MCH (28.0-33.3) pg MCHC (31.6-35.5) g/dL RDW (11.5-14.5) % Plt Count (140-400) K/mcL MPV (9.4-12.4) fL Immature Gran % (0-4) % Seg Neutrophils % % Lymphocytes % % Monocytes % % Eosinophils % % Basophils % % Neutrophils # (1.6-8.9) K/mcL Lymphocytes # (0.6-4.6) K/mcL Monocytes # (0.0-1.3) K/mcL Eosinophils # (0.0-0.6) K/mcL Basophils # (0.0-0.2) K/mcL PT 27.0 H (9.4-12.1) Seconds INR 2.4 Sodium (136-145) mEq/L Potassium (3.5-4.5) mEq/L Chloride (98-109) mEq/L Carbon Dioxide (19-29) mEq/L BUN (7-20) mg/dL Creatinine (0.57-1.11) mg/dL Est GFR ( Amer) (> 60) Est GFR (Non-Af Amer) (> 60) BUN/Creatinine Ratio (6-26) Glucose (70-99) mg/dL Calculated Osmolality (280-300) Calcium (8.6-10.8) mg/dL Magnesium 1.6 (1.6-2.6) mg/dL Troponin I (0-0.03) ng/mL B-Natriuretic Peptide 687 H (0-100) pg/mL Digoxin (0.8-2.0) ng/mL - Radiology Data Radiology results reviewed: Yes I reviewed the patient's radiology results. - EKG Data EKG attestation: Yes I reviewed and interpreted this EKG. EKG shows normal: Reports: sinus rhythm Rate: Reports: tachycardia (116) Rhythm: Reports: A. flutter [place]/QRS: Reports: normal Interpretation: Reports: nonspecific ST-T wave changes Critical Care Time Critical Care Time: Yes Total Critical Care Time: 40 Attestation: Critical care performed: Time is exclusive of separately billable procedures. Time includes: direct patient care, patient reassessment, coordination of patient care, interpretation of data (laboratory data, radiology data, and respiratory data), review of patient's medical records, medical consultation and documentation of patient care. Procedures included in critical care time: Procedures excluded from critical care time:
[2016-07-23 16:46] LABS: Basophils % 0.5 %; Eosinophils # 0.1 K/mcL (0.0-0.6); Hematocrit 26.6 % (35.3-44.9); Hemoglobin 8.4 g/dL (11.5-15.4); Immature Granulocytes % 0.4 % (0-4); Lymphocytes # 1.8 K/mcL (0.6-4.6); Lymphocytes % 33.3 %; Mean Corpuscular HGB Conc 31.6 g/dL (31.6-35.5); Mean Corpuscular Hemoglobin 28.4 pg (28.0-33.3); Mean Corpuscular Volume 89.9 fL (83.0-100.0); Mean Platelet Volume 10.5 fL (9.4-12.4); Monocytes # 0.6 K/mcL (0.0-1.3); Platelet Count 153 K/mcL (140-400); Red Blood Count 2.96 M/mcL (3.82-4.97); Segmented Neutrophils % 53.8 %
[2016-07-23 16:57] LABS: INR 2.4
[2016-07-23 17:05] LABS: BUN/Creatinine Ratio 16 (6-26); Blood Urea Nitrogen 16 mg/dL (7-20); Calcium 9.1 mg/dL (8.6-10.8); Carbon Dioxide 21 mEq/L (19-29); Chloride 107 mEq/L (98-109); Glucose 143 mg/dL (70-99); Osmolality,Calculated 296 (280-300); Potassium 3.8 mEq/L (3.5-4.5); Sodium 141 mEq/L (136-145); eGFR For African Americans > 60 (> 60); eGFR For Non-African Americans 57 (> 60)
[2016-07-23 17:13] LABS: Digoxin 0.7 ng/mL (0.8-2.0)
[2016-07-23] MEDS ORDERED: Furosemide 40 MG/4 ML VIAL IVP ONE (17:30)
[2016-07-23] MEDS ORDERED: *HR* Metoprolol 5 MG/5 ML VIAL IVP ONE (17:35)
[2016-07-23] MEDS ORDERED: Ondansetron 4 MG/2 ML VIAL IVP PRN (20:29)
[2016-07-23] MEDS ORDERED: *HR* Dextrose 50 % in Water (Syg) 50 ML SYRINGE IVP PRN (20:43)
[2016-07-23] MEDS ORDERED: D5% in Water 1,000 ML IV PRN (20:43)
[2016-07-23] MEDS ORDERED: Dextrose Gel 15 GM PO PRN ×2 (20:43)
[2016-07-23] MEDS ORDERED: Ipratropium/Albuterol Neb 3 ML IH PRN (20:45)
--- NOTE | 2016-07-23 20:50 | Internal Med History&Physical ---
Date of Encounter: 07/23/16 Time of Encounter: 20:46 Assessment and Plan (1) Acute on chronic systolic heart failure Current visit: Yes Status: Acute Per records EF was 40-45% on a recent echocardiogram. I will not repeat the echo. We will treat the patient with IV Lasix. Fluid restriction. 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 Consult cardiology. Strict input and output monitoring. Daily weights. (2) Diabetes mellitus type 2, noninsulin dependent Current visit: Yes Status: Acute Hold metformin. Start Levemir and insulin sliding scale. Check hemoglobin A1c in the morning. (3) Essential hypertension Current visit: Yes Status: Acute Resume her home meds. (4) Anticoagulated on Coumadin Current visit: Yes Status: Acute Continue daily Coumadin per her outpatient regimen. Check daily INR. (5) Atrial flutter with rapid ventricular response Current visit: Yes Status: Acute Continue the digoxin. Continue metoprolol succinate to start tomorrow. We will add IV metoprolol PRN. Continue cardiac monitoring. Consult cardiology. Avoid diltiazem due to depressed ejection fraction. She is at high risk for morbidity and complications due to treatment with intravenous medication does not require continuous cardiac monitoring. (6) Dyspnea Current visit: Yes Status: Acute Oxygen by nasal cannula.aintain oxygen saturation above 92%. Qualifiers: Dyspnea type: shortness of breath Qualified Code(s): R06.02 - Shortness of breath (7) Anemia Current visit: No Status: Acute Check iron studies. Monitor hemoglobin and hematocrit daily. Qualifiers: Anemia type: unspecified type Qualified Code(s): D64.9 - Anemia, unspecified (8) DVT prophylaxis Current visit: No Status: Acute Fully anticoagulated with warfarin. Does not need any additional chemoprophylaxis. (9) Thrombus of left atrial appendage Current visit: No Status: Acute Continue with warfarin. Daily INR. (10) CAD (coronary artery disease) Current visit: No Status: Chronic Continue aspirin and statin beta marva and AFSHAN inhibitor. Trend troponin. Qualifiers: Coronary Disease-Associated Artery/Lesion type: unspecified vessel or lesion type [place] vs. transplanted heart: [place] heart Associated angina: without angina Qualified Code(s): I25.10 - Atherosclerotic heart disease of [place] coronary artery without angina pectoris Internal Medicine - H&P: HPI Chief complaint: Shortness of breath Plans for Post Hospital Care: Home History of present illness: Ms. Hernández is a 65 year old female with multiple medical comorbidities including type 2 diabetes coronary artery disease, hypertension and atrial flutter who presented to the hospital for shortness of breath. She was admitted a month ago at our service and at that time she was diagnosed with left atrial thrombus and started on warfarin. She was also diagnosed with pneumonia and treated with antibiotics. She was discharged home. She says that since discharge she had been more short of breath than her usual and has been progressively getting worse to the point where for the last 2 days her shortness of breath was extremely severe. She would get completely out of breath just standing up and walking a few feet. She reports associated palpitations, no nausea vomiting diarrhea diaphoresis fevers or chills. She does report a dry cough. She has been having right-sided chest pain for the last month since she had her pneumonia and describes it as moderate soreness worse with taking a deep breath. She had a recent JAUN one week ago which showed a persistent left atrial appendage echodensity suspicious 4 thrombus. In the emergency department she was tachycardic, her EKG revealed atrial flutter with rapid ventricular response. She received treatment with IV Lasix and albuterol and metoprolol. She reports improvement in her shortness of breath after Lasix and supplemental oxygen. A 10 point review of systems was negative except as above Family history was reviewed and found to be noncontributory to this presentation. Past Med Surg Social Fam HX - Past Medical History Medical history: cancer, coronary artery disease, diabetes, hyperlipidemia, hypertension Psychiatric history: anxiety - Past Surgical History Surgical History: appendectomy, breast surgery, coronary bypass (CABG) - Social History Smoking Status: Former smoker Smokeless Tobacco Status: No Alcohol use: none Drug use: none - Family History Father Living Status: Hx Family Cardiac Disorders: Yes (cardiomegaly) Hx Family Cancer: Yes (liver) Internal Medicine - H&P: Meds Cholecalciferol (D-3) [Vitamin D] 2,000 unit PO DAILY 04/18/16 [History] Diphenoxylate/Atropine [Lomotil 2.5 mg/0.025 mg] 1 tab PO BID PRN 04/18/16 [ History] Gabapentin [Neurontin] 900 mg PO HS 04/18/16 [History] Losartan/Hydrochlorothiazide [Hyzaar 100-12.5 Tablet] 1 tab PO DAILY 04/18/16 [ History] Metformin HCl [Metformin HCl ER] 500 mg PO BID 04/18/16 [History] Aspirin Enteric Coated [Aspirin EC] 81 mg PO DAILY #30 tablet. 06/14/16 [Rx] Atorvastatin [Lipitor] 10 mg PO HS #30 tablet 06/14/16 [Rx] Digoxin [Lanoxin] 0.125 mg PO DAILY #30 tablet 06/14/16 [Rx] Citalopram Hydrobromide [Celexa] 30 mg PO DAILY 07/23/16 [History] Metoprolol Succinate 200 mg PO BID 07/23/16 [History] Warfarin [Coumadin] 2 mg PO THSA 07/23/16 [History] Warfarin [Coumadin] 4 mg PO SUMOTUWEFR 07/23/16 [History] Allergies No Known Allergies Allergy (Verified 06/12/16 09:27) All Systems PM: A 10-system review of systems was performed and is negative for pertinent findings except as documented above in the HPI. - Constitutional Vitals: Temp Pulse Resp BP Pulse Ox 98.6 F 82 15 114/72 94 L 07/23/16 19:25 07/23/16 19:25 07/23/16 19:25 07/23/16 19:25 07/23/16 19:25 General appearance: Present: A&O X 3, no acute distress - Head Head exam: Present: atraumatic, normocephalic - Eye Eye exam: Present: PERRL, conjuntiva pink, sclera anicteric Pupils: Present: PERRL - Respiratory Respiratory exam: Present: CTAB. Absent: accessory muscle use, rales, rhonchi, wheezes - Cardiovascular Cardiovascular exam: Present: irregular rhythm, +S1, +S2, tachycardia. Absent: diastolic murmur, gallop, rubs, systolic murmur - GI/Abdominal GI/Abdominal exam: Present: normal bowel sounds, soft, no peritoneal signs. Absent: distended, tenderness - Extremities Exam Extremities exam: Present: warm, radial pulses palpable and symetrical. Absent : calf tenderness, cyanotic, pedal edema - Neurological Exam Neurological exam: Present: CN II-XII intact, oriented X3, no focal deficits. Absent: pronater drift, facial droop, speech deficit - Skin Skin exam: Present: dry, intact Internal Med - H&P Results - Labs CBC & Chem 7: 07/23/16 16:24 07/23/16 16:24 - EKG Data EKG comments: 07/23/16 20:52 My review of her EKG today reveals atrial flutter with rapid ventricular response of 116 bpm. Q waves in leads 3 and aVF, poor R-wave progression. No ST elevation or depression. T-wave inversions in lead 1 and aVL. When compared to the EKG from 06/11/2016 there are no significant changes. - Impressions JAUN from July 16, per chart review shows atrial flutter with rapid ventricular response ejection fraction of the left ventricle estimated at 40-45% . Small, mobile left atrial appendage echodensity suspicious for thrombus. Her medical record during the previous admission on 06/10/[address] angiogram of the chest which showed no evidence of PE. - VTE Reasons for not Prescribing Prophylaxis: Not indicated-Anticoagulated or INR therapeutic
[2016-07-23] MEDS ORDERED: Furosemide 20 MG/2 ML VIAL IVP SCH (21:00)
[2016-07-23] MEDS ORDERED: *HR* Metoprolol 5 MG/5 ML VIAL IVP PRN (21:05)
[2016-07-23] MEDS: *HR* Warfarin 4 MG TABLET PO SCH (21:27)
[2016-07-23] MEDS: Gabapentin 300 MG CAPSULE PO SCH (22:44)
[2016-07-23] MEDS: Insulin DETEMIR 100 UNIT/ML X5UNITS SQ SCH (22:45)
[2016-07-23] MEDS: Metoprolol 100 MG TABLET PO SCH (22:48)
[2016-07-24] MEDS: Acetaminophen 325 MG TABLET PO PRN ×2 (02:27→21:03)
[2016-07-24 02:51] LABS: INR 2.4; Prothrombin Time 26.9 Seconds (9.4-12.1)
[2016-07-24 02:52] LABS: Basophils % 0.6 %; Eosinophils # 0.1 K/mcL (0.0-0.6); Eosinophils % 1.6 %; Hematocrit 26.4 % (35.3-44.9); Hemoglobin 8.2 g/dL (11.5-15.4); Immature Granulocytes % 0.5 % (0-4); Lymphocytes # 2.5 K/mcL (0.6-4.6); Lymphocytes % 38.5 %; Mean Corpuscular HGB Conc 31.1 g/dL (31.6-35.5); Mean Corpuscular Hemoglobin 27.7 pg (28.0-33.3); Mean Corpuscular Volume 89.2 fL (83.0-100.0); Mean Platelet Volume 10.2 fL (9.4-12.4); Monocytes # 0.6 K/mcL (0.0-1.3); Monocytes % 8.9 %; Neutrophils # 3.2 K/mcL (1.6-8.9); Platelet Count 160 K/mcL (140-400); Red Blood Count 2.96 M/mcL (3.82-4.97); Red Cell Distribution Width 14.8 % (11.5-14.5); Segmented Neutrophils % 49.9 %
[2016-07-24 03:04] LABS: Calcium 9.4 mg/dL (8.6-10.8); Magnesium 1.3 mg/dL (1.6-2.6); Potassium 3.3 mEq/L (3.5-4.5)
[2016-07-24 03:06] LABS: % Iron Saturation 12 % (15-50); Iron 59 mcg/dL (50-170); Transferrin 366 mg/dL (180-382)
[2016-07-24 03:26] LABS: Ferritin 27 ng/ml (5-204)
[2016-07-24 03:47] LABS: Hemoglobin A1C 6.1 %
[2016-07-24] MEDS ORDERED: Potassium Chloride 40 MEQ, Lidocaine 1% 2 ML in D5% in Water 500 ML IVPB ONE (07:00)
[2016-07-24] MEDS ORDERED: Magnesium Sulfate 2 GM in D5% in Water 100 ML IVPB ONE (07:00)
--- NOTE | 2016-07-24 08:35 | Cardiology Consult Note ---
<Eleni Edge Panfilo - Last Filed: 07/24/16 09:28> Date of Encounter: 07/24/16 Time of Encounter: 07:00 Assessment and Plan (1) Atrial flutter Current Visit: Yes Status: Acute Hx of atrial flutter anticoagulated on Coumadin. Has been difficult to rate control, unable to rhythm control/cardiovert d/t COSTA thrombus. TTE repeated on 07/16/16 and COSTA unchanged. Has upcoming appointment with Dr. Cleveland Mascorro this week. Continue betablocker and digoxin. Will start short-acting cardizem to improve rate control. Although not ideal due to EF 40%--monitor closely. Continue to monitor closely. Qualifiers: Atrial flutter type: typical Qualified Code(s): I48.3 - Typical atrial flutter (2) CHF (congestive heart failure) Current Visit: Yes Status: Chronic Mild volume overload upon exam. EF 40% per TTE, likely tachycardia induced. Suspect anxiety may be component of worsening shortness of breath. Increase IV lasix to 40 mg BID. Continue betablocker and ARB. Strict I&O, daily weights, Na/fluid restriction diet. Qualifiers: Congestive heart failure type: systolic Congestive heart failure chronicity : chronic Qualified Code(s): I50.22 - Chronic systolic (congestive) heart failure Discussion w patient/family: The assessment and plan as outlined above was discussed with the patient and/or family members who expressed understanding and agreement. All questions were answered. Thank you for involving us in the care of your patient. Please call with any questions. The patient will be discussed and reviewed with Dr. Umaña; changes to be made accordingly. History of Present Illness Consult date: 07/24/16 Requesting physician: Tuan Holden Consult reason: Aflutter Chief complaint: Shortness of breath History of present illness: Ms. Hernández is a 65 year old female with PMH significant for atrial flutter, COSTA thrombus (coumadin), anemia, DMII, HTN, HLD, and anxiety who presents with 4 day history of worsening shortness of breath with mild-moderate exertion. She also report increase in anxiety due to dyspnea. She states, "I thought I had pneumonia again." Recent diagnosis of atrial which has been difficult to rate control due to the presence of COSTA thrombus--she has an upcoming appt. with Dr. Cleveland Mascorro, EP, later this week. She denies any chest pain or discomfort, syncope or leg edema. Recent CV testing includes: 06/10/16 TTE: EF 40% 07/16/16 JAUN: moderately dilated left atrium, EF 40-45%, mild MR, moderate TR, left atrial appendage. Past Med Surg Social Fam HX - Past Medical History Medical history: cancer, CHF (chronic, systolic), diabetes, hyperlipidemia, hypertension Psychiatric history: anxiety - Past Surgical History Surgical History: appendectomy, breast surgery, coronary bypass (CABG) - Social History Smoking Status: Former smoker Smokeless Tobacco Status: No Alcohol use: none Drug use: none - Family History Father Name: Zaid Pulido Sr Family Member Ethnicity: Non- Living Status: Age at : 56 Cause of : liver cancer Hx Family Cardiac Disorders: Yes (cardiomegaly) Hx Family Respiratory Disorders: Yes Hx Family Cancer: Yes (liver) Hx Family GI Disorders: No Hx Family Genitourinary Disorders: No Hx Family Endocrine Disorder: Yes Hx Family Musculoskeletal Disorders: No Hx Family Neuromuscular Disorders: No Hx Family Neurologic Disorders: No Hx Family HEENT Disorders: No Hx Family Autoimmune Disorders: No Hx Family Reproductive Disorders: No Hx Family Psychosocial Disorders: No Hx Family Medical Disorders: No Medications and Allergies Cholecalciferol (D-3) [Vitamin D] 2,000 unit PO DAILY 04/18/16 [History] Diphenoxylate/Atropine [Lomotil 2.5 mg/0.025 mg] 1 tab PO BID PRN 04/18/16 [ History] Gabapentin [Neurontin] 900 mg PO HS 04/18/16 [History] Losartan/Hydrochlorothiazide [Hyzaar 100-12.5 Tablet] 1 tab PO DAILY 04/18/16 [ History] Metformin HCl [Metformin HCl ER] 500 mg PO BID 04/18/16 [History] Aspirin Enteric Coated [Aspirin EC] 81 mg PO DAILY #30 tablet. 06/14/16 [Rx] Atorvastatin [Lipitor] 10 mg PO HS #30 tablet 06/14/16 [Rx] Digoxin [Lanoxin] 0.125 mg PO DAILY #30 tablet 06/14/16 [Rx] Citalopram Hydrobromide [Celexa] 30 mg PO DAILY 07/23/16 [History] Metoprolol Succinate 200 mg PO BID 07/23/16 [History] Warfarin [Coumadin] 2 mg PO THSA 07/23/16 [History] Warfarin [Coumadin] 4 mg PO SUMOTUWEFR 07/23/16 [History] Allergies No Known Allergies Allergy (Verified 06/12/16 09:27) All Systems Review: A 10-system review of systems was performed and is negative for pertinent findings except as documented above in the HPI. - Cardiovascular Cardiovascular: as per HPI Physical Examination Vital Signs, Last 4 Hours Temp Pulse Resp BP Pulse Ox 07/24/16 06:56 97.5 F L 104 18 130/83 97 General: Conversant, Other (appears anxious) HEENT: Atraumatic, Normocephaly Cardiac: Other (irregularly irregular) Lungs: Normal Breath Sounds Neuro: Alert and responsive Abdomen: Soft Skin: No rashes noted on visualized skin Musculoskeletal: No Chest Wall Tenderness Extremities: No Edema, Normal Pulses Results 07/24/16 02:37 07/24/16 02:37 Lab Results 07/23/16 07/24/16 07/24/16 20:50 02:37 02:37 WBC 6.4 Hgb 8.2 L Hct 26.4 L Plt Count 160 INR Sodium Potassium Chloride Carbon Dioxide BUN Creatinine Glucose Calcium Magnesium Troponin I 0.01 0.02 07/24/16 07/24/16 02:37 02:37 WBC Hgb Hct Plt Count INR 2.4 Sodium 141 Potassium 3.3 L Chloride 103 Carbon Dioxide 24 BUN 17 Creatinine 1.11 Glucose 115 H Calcium 9.4 Magnesium 1.3 L Troponin I - Imaging and Cardiology Echo: report reviewed Other Results: 12 hour tele: avg [id number] Aflutter - EKG Interpretation EKG results cardiology: personally reviewed Consult Discharge Plan - Plan Referrals: Ward Mcmanus MD [Primary Care Provider] - (Requested on 07-23-16 ) <Komal Umaña - Last Filed: 07/24/16 13:56> Date of Encounter: 07/24/16 Assessment and Plan Discussion w patient/family: The assessment and plan as outlined above was discussed with the patient and/or family members who expressed understanding and agreement. All questions were answered. Thank you for involving us in the care of your patient. Please call with any questions. History of Present Illness History of present illness: Ms. Hernández is a 65 year old female All Systems Review: A 10-system review of systems was performed and is negative for pertinent findings except as documented above in the HPI. Physical Examination Vital Signs, Last 4 Hours Temp Pulse Resp BP Pulse Ox 07/24/16 10:51 98.1 F 117 16 121/81 97 Results 07/24/16 02:37 07/24/16 02:37 Lab Results 07/23/16 07/24/16 07/24/16 20:50 02:37 02:37 WBC 6.4 Hgb 8.2 L Hct 26.4 L Plt Count 160 INR Sodium Potassium Chloride Carbon Dioxide BUN Creatinine Glucose Calcium Magnesium Troponin I 0.01 0.02 07/24/16 07/24/16 02:37 02:37 WBC Hgb Hct Plt Count INR 2.4 Sodium 141 Potassium 3.3 L Chloride 103 Carbon Dioxide 24 BUN 17 Creatinine 1.11 Glucose 115 H Calcium 9.4 Magnesium 1.3 L Troponin I - Attending Attestation I examined this patient and my medical decision-making was reviewed with the [employer]/PA/Advanced Practice Nurse/Resident Physician. I agree with the documented findings, disposition and treatment plan. Ms. Hernández presented with shortness of breath that may be multifactorial, in part due to mild systolic heart failure and a component of anxiety. She is feeling better after IV lasix. Her daughter also describes episodic short periods of SOB with no particular dehairer suggesting an anxiety component. We agree with IV lasix for now which can be changed to PO maintenance at home. We are also starting short acting cardizem which, if her BP tolerates, we will change to long acting. We will re-evaluate her tomorrow. She is anticoagulated with coumadin for COSTA thrombus.
[2016-07-24] MEDS ORDERED: hydroCHLOROthiazide 25 MG TABLET PO SCH (09:00)
[2016-07-24] MEDS ORDERED: Furosemide 20 MG/2 ML VIAL IVP SCH (09:00)
[2016-07-24] MEDS: Insulin LISPRO 300 UNITS/3 ML VIAL SQ SCH ×6 (09:11→17:02)
--- NOTE | 2016-07-24 09:12 | Internal Med Progress Note ---
Date of Encounter: 07/24/16 Time of Encounter: 09:09 - Assessment and plan (1) Acute on chronic systolic heart failure Current Visit: Yes Status: Acute Assessment and plan: Improving. On IV Lasix. Patient having good urine output. Continue current management. High risk for complications due to use of intravenous Lasix. Monitor urine output and renal function closely. Cardiology following. (2) Anticoagulated on Coumadin Current Visit: Yes Status: Chronic Assessment and plan: INR therapeutic. Continue Coumadin (3) Atrial flutter with rapid ventricular response Current Visit: Yes Status: Acute Assessment and plan: Remains in RVR. Started on Cardizem oral. Will continue monitoring with telemetry. Assess response to Cardizem. Replace abnormal electrolytes. (4) Diabetes mellitus type 2, noninsulin dependent Current Visit: Yes Status: Chronic Assessment and plan: Fairly controlled. Continue sliding scale insulin. Continue to monitor blood sugars. (5) Essential hypertension Current Visit: Yes Status: Acute Assessment and plan: Controlled. Continue losartan and metoprolol. (6) Anemia Current Visit: No Status: Acute Assessment and plan: Normocytic. We will check vitamin B12 and folic acid levels. Patient has good iron levels but poor transferrin saturation. Qualifiers: Anemia type: other cause Other causes of anemia: other cause, not classified Qualified Code(s): D64.89 - Other specified anemias (7) Acute renal injury Current Visit: Yes Status: Acute Assessment and plan: Patient's creatinine is rising. Due to diuretic use. Will follow renal function closely. Continue Lasix at 20 mg IV twice a day. We will stop hydrochlorothiazide. - Subjective Interval history: Patient denies any palpitations at this time. Patient also denies shortness of breath but patient's daughter is present at bedside and says that the patient has been having difficulty breathing even while lying down. She has been urinating more. Lower extremity swelling is improving. Denies any chest pain - Constitutional Vitals: Temp Pulse Resp BP Pulse Ox 97.5 F L 104 18 130/83 97 07/24/16 06:56 07/24/16 06:56 07/24/16 06:56 07/24/16 06:56 07/24/16 06:56 General appearance: Present: cooperative, A&O X 3, pleasant, no acute distress, answers questions appropriately - Respiratory Respiratory exam: Present: CTAB. Absent: accessory muscle use, rales, rhonchi, wheezes - Cardiovascular Cardiovascular exam: Present: irregular rhythm, +S1, +S2, tachycardia. Absent: diastolic murmur, gallop, rubs, systolic murmur - GI/Abdominal GI/Abdominal exam: Present: normal bowel sounds, soft, no peritoneal signs. Absent: distended, tenderness - Extremities Exam Extremities exam: Present: pedal edema, warm, radial pulses palpable and symetrical. Absent: calf tenderness, cyanotic - Neurological Exam Neurological exam: Present: alert, oriented X3, no focal deficits. Absent: facial droop, speech deficit - Skin Skin exam: Present: dry, intact Internal Medicine: Result - Labs CBC & Chem 7: 07/24/16 02:37 07/24/16 02:37 Labs: Short CBC 07/24/16 Range/Units 02:37 WBC 6.4 (4.3-11.1) K/mcL Hgb 8.2 L (11.5-15.4) g/dL Hct 26.4 L (35.3-44.9) % Plt Count 160 (140-400) K/mcL Neutrophils # 3.2 (1.6-8.9) K/mcL BMP 07/24/16 02:37 Sodium 141 Potassium 3.3 L Chloride 103 Carbon Dioxide 24 BUN 17 Creatinine 1.11 Glucose 115 H Calcium 9.4 Cardiac Enzymes 07/23/16 07/24/16 Range/Units 20:50 02:37 Troponin I 0.01 0.02 (0-0.03) ng/mL - ABG Interpretation ABG results: PT/INR, D-dimer PT 26.9 Seconds (9.4-12.1) H 07/24/16 02:37 - VTE Reasons for not Prescribing Prophylaxis: Not indicated-Anticoagulated or INR therapeutic Consult Discharge Plan - Plan Referrals: Ward Mcmanus MD [Primary Care Provider] - (Requested on 07-23-16 ) - Attending Attestation This document has been at least partially created by [employer] recognition technology by Dr. Ross. Errors in grammar, wording or other phrases may exist. If errors are found after the documentation is signed, they will be addressed individually in the addendum section of this document when appropriate.
[2016-07-24] MEDS: Metoprolol 100 MG TABLET PO SCH ×2 (09:15→21:03)
[2016-07-24] MEDS: Magnesium Oxide 400 MG TABLET PO SCH ×2 (09:15→21:03)
[2016-07-24] MEDS: *HR* Digoxin 0.125 MG TABLET PO SCH (09:16)
[2016-07-24] MEDS: Aspirin Enteric Coated 81 MG Tablet PO SCH (09:18)
[2016-07-24] MEDS ORDERED: *HR* Warfarin 2 MG TABLET PO SCH (20:27)
[2016-07-24] MEDS: Furosemide 20 MG/2 ML VIAL IVP SCH (21:02)
[2016-07-24] MEDS: Gabapentin 300 MG CAPSULE PO SCH (21:03)
[2016-07-24] MEDS: Insulin DETEMIR 100 UNIT/ML X5UNITS SQ SCH (21:04)
[2016-07-25 06:10] LABS: Basophils % 0.6 %; Eosinophils # 0.2 K/mcL (0.0-0.6); Eosinophils % 2.4 %; Hematocrit 26.7 % (35.3-44.9); Immature Granulocytes % 0.3 % (0-4); Lymphocytes # 2.8 K/mcL (0.6-4.6); Lymphocytes % 41.7 %; Mean Corpuscular Hemoglobin 27.2 pg (28.0-33.3); Mean Corpuscular Volume 90.8 fL (83.0-100.0); Mean Platelet Volume 10.3 fL (9.4-12.4); Monocytes # 0.8 K/mcL (0.0-1.3); Monocytes % 11.2 %; Platelet Count 165 K/mcL (140-400); Red Blood Count 2.94 M/mcL (3.82-4.97); Red Cell Distribution Width 14.8 % (11.5-14.5); Segmented Neutrophils % 43.8 %
[2016-07-25 06:33] LABS: Potassium 3.8 mEq/L (3.5-4.5)
[2016-07-25] MEDS: Insulin LISPRO 300 UNITS/3 ML VIAL SQ SCH ×6 (07:54→18:28)
[2016-07-25] MEDS: Furosemide 20 MG/2 ML VIAL IVP SCH (07:55)
[2016-07-25] MEDS: Magnesium Oxide 400 MG TABLET PO SCH ×2 (07:55→20:30)
[2016-07-25] MEDS: Metoprolol 100 MG TABLET PO SCH ×2 (07:55→20:30)
[2016-07-25] MEDS: Aspirin Enteric Coated 81 MG Tablet PO SCH (07:55)
[2016-07-25] MEDS: *HR* Digoxin 0.125 MG TABLET PO SCH (07:55)
--- NOTE | 2016-07-25 08:23 | Cardiology Progress Note ---
Date of Encounter: 07/25/16 Time of Encounter: 07:30 Assessment and Plan (1) Atrial flutter Current Visit: Yes Status: Acute Hx of atrial flutter anticoagulated on Coumadin. Has been difficult to rate control, unable to rhythm control/cardiovert d/t COSTA thrombus. TTE repeated on 07/16/16 and COSTA unchanged. Has upcoming appointment with Dr. Cleveland Mascorro this week. Continue betablocker and digoxin. HR control improved with addition of calcium channel marva, Although not ideal due to EF 40%--monitor closely. Significant symptom improvement with cardizem--will change to 120 mg daily to start this afternoon. Avg HR=94 overnight Cardiology will sign-off, please call with questions. Qualifiers: Atrial flutter type: typical Qualified Code(s): I48.3 - Typical atrial flutter (2) CHF (congestive heart failure) Current Visit: Yes Status: Chronic Mild volume overload upon exam. EF 40% per TTE, likely tachycardia induced. Suspect anxiety may be component of worsening shortness of breath. Euvolemic upon exam, consider prn dosing of lasix at discharge. Continue betablocker and ARB. Strict I&O, daily weights, Na/fluid restriction diet. Qualifiers: Congestive heart failure type: systolic Congestive heart failure chronicity : chronic Qualified Code(s): I50.22 - Chronic systolic (congestive) heart failure Discussion w patient/family: The assessment and plan as outlined above was discussed with the patient and/or family members who expressed understanding and agreement. All questions were answered. Thank you for involving us in the care of your patient. Please call with any questions. The patient was discussed and reviewed with Dr. Umaña; Cardiology will sign-off , follow-up with Dr. Cleveland Mascorro this week as scheduled. Subjective Principal diagnosis: Aflutter Interval history: Seen and examined. Patient states she feel great today--she has been up and ambulating in hallways without symptoms--palpitations, shortness of breath. No complaints overnight. Has f/u with Dr.John Mascorro later this week. Objective Vital Signs, Last 4 Hours Temp Pulse Resp BP Pulse Ox 07/25/16 06:56 98.2 F 73 16 94/61 99 General: Conversant, No Apparent Distress HEENT: Atraumatic, Normocephaly, Mucus Membranes Moist Cardiac: Other (irregularly irregular) Lungs: Normal Breath Sounds Neuro: Alert and responsive Abdomen: Soft Skin: No rashes noted on visualized skin Musculoskeletal: No Chest Wall Tenderness Extremities: No Edema, Normal Pulses Results 07/25/16 05:48 07/25/16 05:48 Lab Results 07/25/16 07/25/16 05:48 05:48 WBC 6.8 Hgb 8.0 L Hct 26.7 L Plt Count 165 Sodium 139 Potassium 3.8 Chloride 104 Carbon Dioxide 24 BUN 26 H Creatinine 1.21 H Glucose 148 H Calcium 9.0 Active Medications Acetaminophen (Tylenol) 650 mg PO Q6HR PRN PRN Reason: Mild Pain (1-3) Stop: 01/22/17 20:30 Last Admin: 07/24/16 21:03 Dose: 650 mg Albuterol/Ipratropium (Duoneb) 3 ml IH [id number] PRN; Protocol PRN Reason: Shortness Of Breath/Wheezing Stop: 01/22/17 20:46 Aspirin (Aspirin Ec) 81 mg PO DAILY [facility] Stop: 01/23/17 09:01 Last Admin: 07/25/16 07:55 Dose: 81 mg Dextrose/Water (Dextrose 50% (Syg)) 25 ml IVP AD PRN PRN Reason: Hypoglycemia Stop: 01/22/17 20:44 Digoxin (Lanoxin) 0.125 mg PO DAILY [facility] Stop: 01/23/17 09:01 Last Admin: 07/25/16 07:55 Dose: 0.125 mg Diltiazem HCl (Cardizem Cd) 120 mg PO DAILY [facility] Stop: 01/24/17 12:01 Gabapentin (Neurontin) 900 mg PO [facility] Stop: 01/22/17 21:01 Last Admin: 07/24/16 21:03 Dose: 900 mg Dextrose (Dextrose 5%) 1,000 mls @ 100 mls/hr IV CONT PRN PRN Reason: HYPOGLYCEMIA Stop: 01/22/17 20:44 Insulin Detemir (Levemir) 14 unit 0.15 unit/kg (14 unit) SQ HS [facility] Stop: 01/22/17 21:01 Last Admin: 07/24/16 21:04 Dose: 14 unit Insulin Human Lispro (Humalog) 4 units 0.05 units/kg (4 units) SQ TIDWM [facility] Stop: 01/23/17 08:01 Last Admin: 07/25/16 07:54 Dose: 4 units Insulin Human Lispro (Humalog) 0 units SQ TIDAC [facility] PRN Reason: Protocol Stop: 01/23/17 07:31 Last Admin: 07/25/16 07:54 Dose: 2 units Losartan Potassium (Cozaar) 100 mg PO DAILY [facility] Stop: 01/23/17 09:01 Last Admin: 07/25/16 07:54 Dose: Not Given Magnesium Oxide (Mag-Ox) 400 mg PO BID PHONG PRN Reason: Protocol Stop: 07/25/16 21:01 Last Admin: 07/25/16 07:55 Dose: 400 mg Metoprolol Tartrate (Lopressor) 200 mg PO BID [facility] Stop: 01/22/17 21:01 Last Admin: 07/25/16 07:55 Dose: Not Given Metoprolol Tartrate (Lopressor) 2.5 mg IVP Q6HR PRN PRN Reason: Tachycardia Stop: 01/22/17 21:06 Last Admin: 07/24/16 06:02 Dose: 2.5 mg Ondansetron HCl (Zofran) 4 mg IVP Q8HR PRN PRN Reason: Nausea And Vomiting Stop: 01/22/17 20:30 Simvastatin (Zocor) 20 mg PO HS [facility] Stop: 01/22/17 21:01 Last Admin: 07/24/16 21:04 Dose: 20 mg Warfarin Sodium (Coumadin) 2 mg PO THSA [facility] Stop: 01/23/17 20:28 Last Admin: 07/24/16 21:03 Dose: 2 mg Warfarin Sodium (Coumadin) 4 mg PO SUMOTUWEFR [facility] Stop: 01/22/17 20:31 Last Admin: 07/23/16 21:27 Dose: Not Given - Imaging and Cardiology Echo: report reviewed Other Results: 12 hour tele: avg HR=95 afib. no significant pause noted. - EKG Interpretation EKG results cardiology: personally reviewed - VTE Reasons for not Prescribing Prophylaxis: Not indicated-Anticoagulated or INR therapeutic Consult Discharge Plan - Plan Referrals: Ward Mcmanus MD [Primary Care Provider] - (Requested on 07-23-16 ) Cleveland Mascorro MD [Partnered Physician] - 07/30/16 12:45 pm
--- NOTE | 2016-07-25 09:04 | Internal Med Progress Note ---
Date of Encounter: 07/25/16 Time of Encounter: 07:45 - Assessment and plan (1) Acute renal injury Current Visit: Yes Status: Acute Assessment and plan: Kidney function worsening. Likely due to diuretic use. Will stop diuretics. Follow her kidney function closely. Moderate risk for Complications. (2) Acute on chronic systolic heart failure Current Visit: Yes Status: Acute Assessment and plan: Improving. Patient diuresed well. Kidney function worsened. We will stop Lasix for now. Will arrange follow-up with cardiology after discharge. (3) Anticoagulated on Coumadin Current Visit: Yes Status: Chronic Assessment and plan: Therapeutic INR. (4) Atrial flutter with rapid ventricular response Current Visit: Yes Status: Acute Assessment and plan: Improved. The patient's heart rate is well controlled at this time. Continue metoprolol and Cardizem along with digoxin. (5) Diabetes mellitus type 2, noninsulin dependent Current Visit: Yes Status: Chronic Assessment and plan: Fairly controlled. Continue current insulin regimen. Continue to monitor blood sugars closely. (6) Essential hypertension Current Visit: Yes Status: Acute Assessment and plan: Well-controlled (7) Anemia Current Visit: No Status: Acute Assessment and plan: Chronic. Stable. Low iron levels. We will supplement with oral iron Qualifiers: Anemia type: iron deficiency Iron deficiency anemia type: other iron deficiency Qualified Code(s): D50.8 - Other iron deficiency anemias - Subjective Interval history: Patient is feeling good. Denies any complaints at this time. Tolerating oral diet well. Having good urine output. No chest pain or shortness of breath. - Constitutional Vitals: Temp Pulse Resp BP Pulse Ox 98.2 F 73 16 94/61 99 07/25/16 06:56 07/25/16 06:56 07/25/16 06:56 07/25/16 06:56 07/25/16 06:56 General appearance: Present: cooperative, A&O X 3, pleasant, no acute distress, answers questions appropriately - Respiratory Respiratory exam: Present: CTAB. Absent: accessory muscle use, rales, rhonchi, wheezes - Cardiovascular Cardiovascular exam: Present: RRR, +S1, +S2. Absent: diastolic murmur, gallop, rubs, systolic murmur - GI/Abdominal GI/Abdominal exam: Present: normal bowel sounds, soft, no peritoneal signs. Absent: distended, tenderness - Extremities Exam Extremities exam: Present: warm, radial pulses palpable and symetrical. Absent : calf tenderness, cyanotic, pedal edema - Neurological Exam Neurological exam: Present: alert, oriented X3, no focal deficits. Absent: facial droop, speech deficit Internal Medicine: Result - Labs CBC & Chem 7: 07/25/16 05:48 07/25/16 05:48 Labs: Short CBC 07/25/16 Range/Units 05:48 WBC 6.8 (4.3-11.1) K/mcL Hgb 8.0 L (11.5-15.4) g/dL Hct 26.7 L (35.3-44.9) % Plt Count 165 (140-400) K/mcL Neutrophils # 3.0 (1.6-8.9) K/mcL BMP 07/25/16 05:48 Sodium 139 Potassium 3.8 Chloride 104 Carbon Dioxide 24 BUN 26 H Creatinine 1.21 H Glucose 148 H Calcium 9.0 - ABG Interpretation ABG results: PT/INR, D-dimer PT 26.9 Seconds (9.4-12.1) H 07/24/16 02:37 - VTE Reasons for not Prescribing Prophylaxis: Not indicated-Anticoagulated or INR therapeutic Consult Discharge Plan - Plan Referrals: Ward Mcmanus MD [Primary Care Provider] - (Requested on 07-23-16 ) Cleveland Mascorro MD [Partnered Physician] - 07/30/16 12:45 pm - Attending Attestation This document has been at least partially created by [employer] voice recognition technology by Dr. Rsos. Errors in grammar, wording or other phrases may exist. If errors are found after the documentation is signed, they will be addressed individually in the addendum section of this document when appropriate.
[2016-07-25] MEDS: Diltiazem CD (24hr) 120 MG CAPSULE PO SCH (11:49)
[2016-07-25] MEDS: 0.9 % Sodium Chloride 1,000 ML IVC SCH (18:28)
[2016-07-25] MEDS: *HR* Warfarin 4 MG TABLET PO SCH (20:30)
[2016-07-25] MEDS: Gabapentin 300 MG CAPSULE PO SCH (20:30)
[2016-07-25] MEDS: Insulin DETEMIR 100 UNIT/ML X5UNITS SQ SCH (20:31)
[2016-07-26 05:33] LABS: BUN/Creatinine Ratio 21 (6-26); Blood Urea Nitrogen 22 mg/dL (7-20); Calcium 8.7 mg/dL (8.6-10.8); Carbon Dioxide 23 mEq/L (19-29); Chloride 104 mEq/L (98-109); Glucose 124 mg/dL (70-99); Osmolality,Calculated 291 (280-300); Potassium 3.7 mEq/L (3.5-4.5); Sodium 138 mEq/L (136-145); eGFR For African Americans > 60 (> 60); eGFR For Non-African Americans 53 (> 60)
[2016-07-26 06:05] LABS: Folate 6.7 ng/mL (7.0-31.4)
[2016-07-26 08:02] VITALS: BP 159/92
[2016-07-26] MEDS: Insulin LISPRO 300 UNITS/3 ML VIAL SQ SCH ×2 (08:20)
[2016-07-26] MEDS: Aspirin Enteric Coated 81 MG Tablet PO SCH (08:21)
[2016-07-26] MEDS: Diltiazem CD (24hr) 120 MG CAPSULE PO SCH (08:21)
[2016-07-26] MEDS: Metoprolol 100 MG TABLET PO SCH (08:21)
[2016-07-26] MEDS: *HR* Digoxin 0.125 MG TABLET PO SCH (08:21)
--- NOTE | 2016-07-26 08:25 | Discharge Summary ---
Date of Encounter: 07/26/16 Time of Encounter: 08:23 - Discharge Diagnosis (1) Atrial flutter with rapid ventricular response Priority: Primary Status: Acute (2) Acute renal injury Priority: Secondary Status: Acute (3) Acute on chronic systolic heart failure Priority: Secondary Status: Acute (4) Anticoagulated on Coumadin Priority: Secondary Status: Chronic (5) Diabetes mellitus type 2, noninsulin dependent Priority: Secondary Status: Chronic (6) Essential hypertension Priority: Secondary Status: Acute (7) Anemia Priority: Secondary Status: Acute Qualifiers: Anemia type: iron deficiency Iron deficiency anemia type: other iron deficiency Qualified Code(s): D50.8 - Other iron deficiency anemias - Discharge Medications Prescriptions: Diltiazem CD (24hr) [Cardizem CD] 120 mg PO DAILY #30 cap.er.24h Home Medications: Cholecalciferol (D-3) [Vitamin D] 2,000 unit PO DAILY 04/18/16 [History] Diphenoxylate/Atropine [Lomotil 2.5 mg/0.025 mg] 1 tab PO BID PRN 04/18/16 [ History] Gabapentin [Neurontin] 900 mg PO HS 04/18/16 [History] Losartan/Hydrochlorothiazide [Hyzaar 100-12.5 Tablet] 1 tab PO DAILY 04/18/16 [ History] Metformin HCl [Metformin HCl ER] 500 mg PO BID 04/18/16 [History] Aspirin Enteric Coated [Aspirin EC] 81 mg PO DAILY #30 tablet. 06/14/16 [Rx] Atorvastatin [Lipitor] 10 mg PO HS #30 tablet 06/14/16 [Rx] Digoxin [Lanoxin] 0.125 mg PO DAILY #30 tablet 06/14/16 [Rx] Citalopram Hydrobromide [Celexa] 30 mg PO DAILY 07/23/16 [History] Metoprolol Succinate 200 mg PO BID 07/23/16 [History] Warfarin [Coumadin] 2 mg PO THSA 07/23/16 [History] Warfarin [Coumadin] 4 mg PO SUMOTUWEFR 07/23/16 [History] Diltiazem CD (24hr) [Cardizem CD] 120 mg PO DAILY #30 cap.er.24h 07/26/16 [Rx] Allergies/Adverse Reactions: Allergies No Known Allergies Allergy (Verified 06/12/16 09:27) Date of admission: 07/23/16 20:29 Primary care physician: Ward Mcmanus MD Consults: 07/23/16 17:35 Consult to Cardiology [CONS] Routine Comment: Dr. Umaña Consulting Provider: Penny Jenkins Reason for Consult: atrial flutter Time Notified: 17:36 Call Completed: Yes 07/23/16 20:31 Consult to Occupational Therapy [CONS] Routine Comment: Evaluate, develop and implement POC Consult to Physical Therapy [CONS] Routine Comment: Evaluate, develop and implement POC Discharging clinician: Justin Ross Anticipated date of discharge: 07/26/16 - Patient Status Disposition: Home, Self-Care Functional capacity at discharge: independent ambulation Overall status at discharge: patient is progressing back to baseline - Discharge Instructions Instructions: Atrial Flutter (DC) Follow Up With: Ward Mcmanus MD [Primary Care Provider] - (Requested on 07-23-16 ) Cleveland Mascorro MD [Partnered Physician] - 07/30/16 12:45 pm Additional Instructions: Fluid restriction at 1500 mL per day - Diet and Activity Activity: increase activity as tolerated Diet: diabetic diet, low fat, low cholesterol, low salt diet, other (Fluid restriction at 1500 mL per day) Hospital course: Ms. Hernández is a 65 year old female with history of atrial flutter, hypertension, diabetes mellitus type 2, coronary artery disease was admitted here after presenting with shortness of breath and Palpitations. She was diabetic diagnosed initially with atrial flutter with rapid ventricular response based on her EKG. She received treatment for that with IV metoprolol which decreased her heart rate. She has been having difficult to control a flutter and also has a left atrial appendage thrombus for which she is on anticoagulation. She was started on Cardizem and her heart rate has been running between 100-110. Agent is no longer symptomatic at this time. She was also diagnosed with acute congestive heart failure and treated for that with IV Lasix. This improved her respiratory status but her kidney function worsened immediately. As such her Lasix has been stopped now. 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 Her blood pressure has been elevated but she is on metoprolol, losartan, hydrochlorothiazide and now has been started on diltiazem which should control her blood pressure better. She will follow up with cardiology later this week. - Time Spent with Patient Total time spent providing and/or coordinating discharge services: Less than 30 minutes (20 min) - Constitutional Vitals: Temp Pulse Resp BP Pulse Ox 98.2 F 114 16 159/92 92 L 07/26/16 07:54 07/26/16 07:54 07/26/16 07:54 07/26/16 07:54 07/26/16 07:54 General appearance: Present: cooperative, A&O X 3, pleasant, no acute distress, answers questions appropriately - Respiratory Respiratory exam: Present: CTAB. Absent: accessory muscle use, rales, rhonchi, wheezes - Cardiovascular Cardiovascular exam: Present: RRR, +S1, +S2, tachycardia. Absent: diastolic murmur, gallop, rubs, systolic murmur - GI/Abdominal GI/Abdominal exam: Present: normal bowel sounds, soft, no peritoneal signs. Absent: distended, tenderness - Extremities Exam Extremities exam: Present: warm, radial pulses palpable and symetrical. Absent : calf tenderness, cyanotic, pedal edema - Neurological Exam Neurological exam: Present: alert, oriented X3, no focal deficits. Absent: facial droop, speech deficit - Skin Skin exam: Present: dry, intact - VTE Reasons for not Prescribing Prophylaxis: Not indicated-Anticoagulated or INR therapeutic - Attending Attestation This document has been at least partially created by [employer] recognition technology by Dr. Ross. Errors in grammar, wording or other phrases may exist. If errors are found after the documentation is signed, they will be addressed individually in the addendum section of this document when appropriate.
[2016-07-26] MEDS: 0.9 % Sodium Chloride 1,000 ML IVC SCH (08:30)
--- NOTE | 2016-07-26 14:57 | Electrocardiograph Report ---
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
--- NOTE | 2016-07-26 15:58 | Electrocardiograph Report ---
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
== END 2016-07-26 10:09 | disposition home or self-care (01) | DRG 308 ==
LOC: 2ANU 15:45 → EMEROO 15:45 → 2ANU 18:59
PROVIDERS: ADMIT Internal Medicine; ATTEND Internal Medicine

== ENCOUNTER 2016-09-06 20:07 | Inpatient (IN) ==
--- NOTE | 2016-09-06 21:34 | Emergency Department Note ---
Disposition Clinical Impression: FRAN (acute kidney injury), Pleural effusion Anemia Qualifiers: Anemia type: unspecified type Qualified Code(s): D64.9 - Anemia, unspecified GI bleed Qualifiers: GI bleed type/associated pathology: unspecified gastrointestinal hemorrhage type Qualified Code(s): K92.2 - Gastrointestinal hemorrhage, unspecified Disposition: Admitted As Inpatient Condition: Fair Time of Disposition: 01:21 Recheck wound or abnormal lab - General Chief Complaint: ED Recheck/Abnormal Lab/Rx Stated Complaint: Sent by Dr. Mcmanus, critical lab Time Seen by Provider: 09/06/16 21:07 Source: patient, family Mode of arrival: ambulatory Limitations: no limitations Nursing Notes Reviewed: Yes Vital Signs Reviewed: Yes - History of Present Illness HPI Narrative: Patient is a 65-year-old female with past medical history of A. fib, currently on Coumadin, CHF, asthma, wears 2 L nasal cannula oxygen chronically, HLD, HTN, Diabetes. She presents today due to referral from primary care physician due to hemoglobin level of 5.7. Patient states that she has been short of breath and tired for the past couple weeks. She was just recently admitted in June for pneumonia. She is also been having left-sided chest pain that is sharp in nature, comes and goes this is been occurring for several months. It occurs at both rest and with exertion. Patient also admits to dark, tarry stools. Denies any fevers, nausea, vomiting, abdominal pain. - Related Data Home Medications Medication Instructions Recorded Confirmed Cholecalciferol (D-3) [Vitamin D] 2,000 unit PO DAILY 04/18/16 09/07/16 Diphenoxylate/Atropine [Lomotil 1 tab PO BID PRN 04/18/16 09/07/16 2.5 mg/0.025 mg] Gabapentin [Neurontin] 900 mg PO HS 04/18/16 09/07/16 Losartan/Hydrochlorothiazide 1 tab PO DAILY 04/18/16 09/07/16 [Hyzaar 100-12.5 Tablet] Metformin HCl [Metformin HCl ER] 500 mg PO BID 04/18/16 09/07/16 Citalopram Hydrobromide [Celexa] 30 mg PO DAILY 07/23/16 09/07/16 Metoprolol Succinate 200 mg PO BID 07/23/16 09/07/16 Warfarin [Coumadin] 2 mg PO THSA 07/23/16 09/07/16 Warfarin [Coumadin] 4 mg PO SUMOTUWEFR 07/23/16 09/07/16 Previous Rx's Medication Instructions Recorded Aspirin Enteric Coated [Aspirin EC] 81 mg PO DAILY #30 tablet. 06/14/16 Atorvastatin [Lipitor] 10 mg PO HS #30 tablet 06/14/16 Digoxin [Lanoxin] 0.125 mg PO DAILY #30 tablet 06/14/16 Diltiazem CD (24hr) [Cardizem CD] 120 mg PO DAILY #30 cap.er.24h 07/26/16 Allergies Allergy/AdvReac Type Severity Reaction Status Date / Time No Known Allergies Allergy Verified 06/12/16 09:27 Constitutional: Denies: fever Cardiovascular: Reports: chest pain, dyspnea on exertion Respiratory: Reports: dyspnea. Denies: cough, wheezes Gastrointestinal: Reports: melena, hematochezia. Denies: abdominal pain, nausea , vomiting, diarrhea, hematemesis Integumentary: Denies: rash Neurological: Denies: headache Past Medical History - Past Medical History Attestation: Yes The following information was validated with the patient. Source: patient Medical history: Reports: asthma, cancer, CHF, diabetes, hyperlipidemia, hypertension Surgical history: Reports: appendectomy, breast surgery, coronary bypass (CABG) Psychiatric history: Reports: anxiety - Social History Smoking Status: Former smoker Smokeless Tobacco Status: No Alcohol use: Reports: none Drug use: Reports: none Physical Exam - General Limitations: no limitations General appearance: alert, in no apparent distress - Head Head exam: atraumatic, normocephalic, normal inspection - Eye Eye exam: Present: PERRL, EOMI, other (pale conjunctiva) - ENT ENT exam: normal exam, normal oropharynx, mucous membranes moist - Neck Neck exam: Present: normal inspection, full ROM, trachea midline - Chest Chest inspection: Present: normal inspection, symmetric chest wall rise - Respiratory Respiratory exam: Present: wheezes (mild wheeze in bilateral LL and decreased aeration of RLL) - Cardiovascular Cardiovascular exam: Present: normal rhythm, tachycardia, normal heart sounds - Abdominal Exam Abdominal exam: Present: soft, Non-Tender. Absent: tenderness, distention, guarding, rebound, rigidity - Rectal Exam Rectal exam: Present: normal inspection, normal rectal tone, heme (+) stool. Absent: black stool, bloody stool, hemorrhoids - Extremities Exam Extremities exam: Present: full ROM, pedal edema (Pitting Pedal edema of bilateral lower extremity). Absent: tenderness - Neurological Exam Neurological exam: Present: alert, oriented X3 - Psychiatric Psychiatric exam: Present: normal affect, normal mood - Skin Skin exam: Present: warm, dry, intact, pallor Course Course Narrative: Patient was tachycardic. BP stable. Once placed on 2 L nasal cannula oxygen, oxygen saturation was in the mid 90s. EKG showed sinus tachycardia with mild elevation in aVR. Chronic T-wave inversions in lead 1, aVL. Physical exam showed pale skin, pale conjunctiva, lung exam with wheezes in bilateral lower lobes and decreased aeration in right lower lobe. Abdominal exam is benign. Basic lab work was obtained. CBC showed a hemoglobin of 5.7. INR was 2.4. BMP shows signs of FRAN. Hemeoccult stool positive. CXR showed new moderate right pleural effusion. Patient signed consent for transfusion, 3 units ordered along with 2 FFP and 10mg vitamin K. Patient will be admitted for anemia, GI bleed, FRAN, pleural effusion likely secondary to CHF Chest X-Ray 09/06/16 21:35 IMPRESSION: New moderate-sized right pleural effusion. D/ / 09/06/2016 22:28:49 Antoine Randle MD / [facility] Interpreting Provider: Antoine Randle MD Vital Signs Temperature 97.8 F 09/06/16 20:44 Pulse Rate 111 09/06/16 20:44 Respiratory Rate 20 09/06/16 20:44 Blood Pressure 132/67 09/06/16 20:44 O2 Sat by Pulse Oximetry 92 09/06/16 20:44 Temperature 97.5 F L 09/07/16 06:51 Pulse Rate 111 09/07/16 06:51 Respiratory Rate 18 09/07/16 06:51 Blood Pressure 159/95 09/07/16 06:51 O2 Sat by Pulse Oximetry 95 09/07/16 09:08 Oxygen Delivery Oxygen Delivery Nasal Cannula Recheck wound or abnormal lab - MDM Narrative Medical decision making narrative: Patient was tachycardic. BP stable. Once placed on 2 L nasal cannula oxygen, oxygen saturation was in the mid 90s. EKG showed sinus tachycardia with mild elevation in aVR. Chronic T-wave inversions in lead 1, aVL. Physical exam showed pale skin, pale conjunctiva, lung exam with wheezes in bilateral lower lobes and decreased aeration in right lower lobe. Abdominal exam is benign. Basic lab work was obtained. CBC showed a hemoglobin of 5.7. INR was 2.4. BMP shows signs of FRAN. Hemeoccult stool positive. CXR showed new moderate right pleural effusion. Patient signed consent for transfusion, 3 units ordered along with 2 FFP and 10mg vitamin K. Patient will be admitted for anemia, GI bleed, FRAN, pleural effusion likely secondary to CHF - Medical Records Medical records reviewed: Yes I reviewed the patient's medical records. - Lab Data Lab results reviewed: Yes I reviewed the patient's lab results. Result diagrams: 09/06/16 21:55 09/06/16 21:55 Lab Results 09/06/16 09/06/16 09/06/16 Range/Units 21:55 21:55 21:55 WBC 6.2 (4.3-11.1) K/mcL RBC 2.43 L (3.82-4.97) M/mcL Hgb 5.7 L* (11.5-15.4) g/dL Hct 20.4 L (35.3-44.9) % MCV 84.0 (83.0-100.0) fL MCH 23.5 L (28.0-33.3) pg MCHC 27.9 L (31.6-35.5) g/dL RDW 17.6 H (11.5-14.5) % Plt Count 191 (140-400) K/mcL MPV 9.3 L (9.4-12.4) fL Immature Gran % 0.3 (0-4) % Seg Neutrophils % 57.3 % Lymphocytes % 29.2 % Monocytes % 12.0 % Eosinophils % 1.0 % Basophils % 0.2 % Neutrophils # 3.6 (1.6-8.9) K/mcL Lymphocytes # 1.8 (0.6-4.6) K/mcL Monocytes # 0.7 (0.0-1.3) K/mcL Eosinophils # 0.1 (0.0-0.6) K/mcL Basophils # 0.0 (0.0-0.2) K/mcL Platelet Estimate Normal (Normal) Hypochromasia Present A (Not Present) Anisocytosis 2+ A (Not Present) PT (9.4-12.1) Seconds INR Sodium 144 (136-145) mEq/L Potassium 4.6 H (3.5-4.5) mEq/L Chloride 108 (98-109) mEq/L Carbon Dioxide 23 (19-29) mEq/L BUN 41 H (7-20) mg/dL Creatinine 1.52 H (0.57-1.11) mg/dL Est GFR ( Amer) 41 L (> 60) Est GFR (Non-Af Amer) 34 L (> 60) BUN/Creatinine Ratio 27 H (6-26) Glucose 110 H (70-99) mg/dL Calculated Osmolality 309 H (280-300) Calcium 9.9 (8.6-10.8) mg/dL Iron 12 L (50-170) mcg/dL % Saturation 2 L (15-50) % Transferrin 419 H (180-382) mg/dL Ferritin 22 (5-204) ng/ml Troponin I 0.02 (0-0.03) ng/mL B-Natriuretic Peptide (0-100) pg/mL Stool Occult Blood (Negative) Blood Type Antibody Screen Crossmatch 09/06/16 09/06/16 09/06/16 Range/Units 21:55 21:55 22:50 WBC (4.3-11.1) K/mcL RBC (3.82-4.97) M/mcL Hgb (11.5-15.4) g/dL Hct (35.3-44.9) % MCV (83.0-100.0) fL MCH (28.0-33.3) pg MCHC (31.6-35.5) g/dL RDW (11.5-14.5) % Plt Count (140-400) K/mcL MPV (9.4-12.4) fL Immature Gran % (0-4) % Seg Neutrophils % % Lymphocytes % % Monocytes % % Eosinophils % % Basophils % % Neutrophils # (1.6-8.9) K/mcL Lymphocytes # (0.6-4.6) K/mcL Monocytes # (0.0-1.3) K/mcL Eosinophils # (0.0-0.6) K/mcL Basophils # (0.0-0.2) K/mcL Platelet Estimate (Normal) Hypochromasia (Not Present) Anisocytosis (Not Present) PT (9.4-12.1) Seconds INR Sodium (136-145) mEq/L Potassium (3.5-4.5) mEq/L Chloride (98-109) mEq/L Carbon Dioxide (19-29) mEq/L BUN (7-20) mg/dL Creatinine (0.57-1.11) mg/dL Est GFR ( Amer) (> 60) Est GFR (Non-Af Amer) (> 60) BUN/Creatinine Ratio (6-26) Glucose (70-99) mg/dL Calculated Osmolality (280-300) Calcium (8.6-10.8) mg/dL Iron (50-170) mcg/dL % Saturation (15-50) % Transferrin (180-382) mg/dL Ferritin (5-204) ng/ml Troponin I (0-0.03) ng/mL B-Natriuretic Peptide 1230 H (0-100) pg/mL Stool Occult Blood Positive A (Negative) Blood Type O POSITIVE Antibody Screen NEGATIVE Crossmatch See Detail 09/06/16 Range/Units 23:06 WBC (4.3-11.1) K/mcL RBC (3.82-4.97) M/mcL Hgb (11.5-15.4) g/dL Hct (35.3-44.9) % MCV (83.0-100.0) fL MCH (28.0-33.3) pg MCHC (31.6-35.5) g/dL RDW (11.5-14.5) % Plt Count (140-400) K/mcL MPV (9.4-12.4) fL Immature Gran % (0-4) % Seg Neutrophils % % Lymphocytes % % Monocytes % % Eosinophils % % Basophils % % Neutrophils # (1.6-8.9) K/mcL Lymphocytes # (0.6-4.6) K/mcL Monocytes # (0.0-1.3) K/mcL Eosinophils # (0.0-0.6) K/mcL Basophils # (0.0-0.2) K/mcL Platelet Estimate (Normal) Hypochromasia (Not Present) Anisocytosis (Not Present) PT 26.7 H (9.4-12.1) Seconds INR 2.4 Sodium (136-145) mEq/L Potassium (3.5-4.5) mEq/L Chloride (98-109) mEq/L Carbon Dioxide (19-29) mEq/L BUN (7-20) mg/dL Creatinine (0.57-1.11) mg/dL Est GFR ( Amer) (> 60) Est GFR (Non-Af Amer) (> 60) BUN/Creatinine Ratio (6-26) Glucose (70-99) mg/dL Calculated Osmolality (280-300) Calcium (8.6-10.8) mg/dL Iron (50-170) mcg/dL % Saturation (15-50) % Transferrin (180-382) mg/dL Ferritin (5-204) ng/ml Troponin I (0-0.03) ng/mL B-Natriuretic Peptide (0-100) pg/mL Stool Occult Blood (Negative) Blood Type Antibody Screen Crossmatch - Radiology Data Radiology results reviewed: Yes I reviewed the patient's radiology results. Chest X-Ray 09/06/16 21:35 IMPRESSION: New moderate-sized right pleural effusion. D/ / 09/06/2016 22:28:49 Antoine Randle MD / [facility] Interpreting Provider: Antoine Randle MD - EKG Data EKG attestation: Yes I reviewed and interpreted this EKG. EKG results narrative: 09/06/2016 at 20:57. Sinus tachycardia. Rate 111. IL 189. QRS 89. QTc 373. Left axis deviation. Mild elevation in aVR and ST segment. T-wave inversion in lead 1, aVL that is chronic for the patient since previous EKG on 07/23/2016 S.Candis - SOleksandr Situation: Demographics, MOA Background: Presenting Complaint, Relevant PMH, Meds, & Allergies Assessment: Vital Signs, Course and respsone to treatment, Exam Concerns, Patient/Family Expectation, Pertinant Lab Results, Outstanding Labs Recommendation: Barrier(s) to disposition, Recommendation based on pending studies, treatments, or consults S.BDayanara Report Given to: Dr. Shahla Stewart Repor Time: 01:22 Attestation Statement - Attestation Attestation: I examined this patient and my medical decision-making was reviewed with the Resident Physician. I agree with the documented findings, disposition and treatment plan as described except to the extent set forth below. Dark but not black, sticky stools, now w CP, severe dizziness leading to a fall (+/- presyncope). Pale, tachycardic w normal BP. Non-ischemic EKG. R/B of transfusion discussed, pt voices understanding, agrees w transfusion. On Coumadin for AFib - Vitamin K given, FFP/RBC ordered. Will require admission.
[2016-09-06 22:06] LABS: Basophils % 0.2 %; Eosinophils # 0.1 K/mcL (0.0-0.6); Hematocrit 20.4 % (35.3-44.9); Immature Granulocytes % 0.3 % (0-4); Lymphocytes # 1.8 K/mcL (0.6-4.6); Lymphocytes % 29.2 %; Mean Corpuscular HGB Conc 27.9 g/dL (31.6-35.5); Mean Corpuscular Hemoglobin 23.5 pg (28.0-33.3); Mean Platelet Volume 9.3 fL (9.4-12.4); Neutrophils # 3.6 K/mcL (1.6-8.9); Platelet Count 191 K/mcL (140-400); Red Blood Count 2.43 M/mcL (3.82-4.97); Red Cell Distribution Width 17.6 % (11.5-14.5); Segmented Neutrophils % 57.3 %
[2016-09-06 22:10] LABS: Monocytes # 0.7 K/mcL (0.0-1.3)
[2016-09-06 22:12] LABS: Hemoglobin 5.7 g/dL (11.5-15.4)
[2016-09-06 22:17] LABS: Calcium 9.9 mg/dL (8.6-10.8); Potassium 4.6 mEq/L (3.5-4.5)
[2016-09-06 22:28] LABS: Anisocytosis 2+ (Not Present); Hypochromasia Present (Not Present)
[2016-09-06 22:29] LABS: Platelet Estimate Normal (Normal)
[2016-09-06] MEDS ORDERED: 0.9 % Sodium Chloride 500 ML ONE (23:19)
[2016-09-06 23:36] LABS: INR 2.4; Prothrombin Time 26.7 Seconds (9.4-12.1)
[2016-09-07] MEDS ORDERED: Dextrose Gel 15 GM PO PRN ×2 (02:13)
[2016-09-07] MEDS ORDERED: *HR* Morphine 2 MG/ML SYRINGE IVP PRN (02:13)
[2016-09-07] MEDS ORDERED: *HR* Dextrose 50 % in Water (Syg) 50 ML SYRINGE IVP PRN (02:13)
[2016-09-07] MEDS ORDERED: Acetaminophen 325 MG TABLET PO PRN (02:13)
[2016-09-07] MEDS ORDERED: D5% in Water 1,000 ML IVC PRN (02:13)
[2016-09-07] MEDS ORDERED: *HR* OxyCODONE Immed Rel 5 MG TABLET PO PRN ×2 (02:13→13:56)
[2016-09-07] MEDS ORDERED: Ondansetron 4 MG/2 ML VIAL IVP PRN (02:13)
[2016-09-07] MEDS ORDERED: Naloxone 0.4 MG/ML INJ IVP PRN (02:13)
[2016-09-07] MEDS ORDERED: 0.9 % Sodium Chloride 1,000 ML IVC SCH (02:15)
[2016-09-07] MEDS ORDERED: Pantoprazole 80 MG in 0.9 % Sodium Chloride 50 ML IVPB ONE (02:22)
[2016-09-07] MEDS ORDERED: Metoclopramide 10 MG/2 ML VIAL IVP ONE (02:22)
--- NOTE | 2016-09-07 02:34 | Internal Med History&Physical ---
Date of Encounter: 09/07/16 Time of Encounter: 02:00 Assessment and Plan (1) Acute blood loss anemia Current visit: Yes Status: Acute . (2) Chronic blood loss anemia Current visit: Yes Status: Acute . (3) Symptomatic anemia Current visit: Yes Status: Acute . (4) UGIB (upper gastrointestinal bleed) Current visit: Yes Status: Acute . (5) Atrial fibrillation and flutter Current visit: Yes Status: Chronic . (6) Mural thrombus of heart Current visit: Yes Status: Chronic . (7) Acute on chronic systolic heart failure Current visit: Yes Status: Acute . (8) Anticoagulated on Coumadin Current visit: Yes Status: Chronic . (9) FRAN (acute kidney injury) Current visit: Yes Status: Acute . (10) Pleural effusion Current visit: Yes Status: Chronic . (11) Atrial flutter with rapid ventricular response Current visit: Yes Status: Acute . Internal Medicine - H&P: HPI Chief complaint: Abnormal blood test. Short of breath. Tiredness. Admitted From: Emergency Dept Plans for Post Hospital Care: Home History of present illness: Ms. Hernández is a 65 year old female is admitted to [facility] through the emergency department she was referred by her primary care physician for evaluation of a critical lab value returned noting a hemoglobin level of 5.7. Patient possesses a significant history of chronic paroxysmal atrial ablation-flutter with chronic anticoagulation therapy with Coumadin, systolicCHF /LVEF 40-45%/rheumatic valvular heart disease/intracardiac thrombus/HTN, HLD, CAD/CABG/AMI, CKD, type II DM, SONG, h/o breast Ca/surgery, RAD/COPD/home O2 dependent, obesity, former heavy smoker(90pk-yrs). She had noted increasing shortness of breath and generalized weakness and easy fatigability for the preceding 2 more weeks. This was significant as she wears at least 2 L/m of oxygen per nasal cannula chronically. History is most probably of July 2016 to July 26 hospitalization. Had experience episodes of severe postural dizziness leading to feelings of presyncope. She presented initially with atrial flutter with rapid ventricular response and was found to have a left atrial appendage thrombus acquiring anticoagulation with Coumadin. The trending of her hemoglobin prior to 2014 was in the 12.6 or greater range. 09/20 it was measured at 10.4. Gradually declined over the next months with a measurement in 07/25/16 found at 8.0. She presents now with a dramatic drop between July and September with a measurement of 5.7 as stated. Is during this last month that she gradually felt more more listless and finding greater difficulties and completing her daily activities independently she did experience having some left-sided chest pain that was sharp in nature it would come and go. It had been occurring for several months occurring at rest as well as with exertion but resolving spontaneously. He denied recently any fevers any chills sweats nausea vomiting abdominal pain. Denied any obvious tiniest bruising or bleeding and she had noticed some dark tarry looking stools. Denied any hematemesis melena epistaxis hematuria. Vital signs temperature 97.8 pulse 111, respirations 20 BP 135/86 O2 saturation 92-98% on 2 L per nasal cannula. WBC 6.2 hemoglobin 5.7 platelets 196,000. MPV 9.3. MCH 23.5 MCHC 27.9. RDW 17.6. Differential normal. Metabolic panel noted a potassium of 4.6. BUN 41 creatinine 1.52 GFR 34. Glucose 110 osmolality 309. Troponin 0.02 BNP 1230. Occult blood stool positive. PT 26.7 INR 2.4. Chest x -ray demonstrated a moderate size right pleural effusion which appeared new. Status post sternotomy. Heart size mildly enlarged. No edema or pneumothorax surgical clips right axilla noted. EKG sinus tachycardia no acute ischemic changes. Preliminary impression suggests symptomatic, acute on chronic blood loss anemia in the setting of upper gastrointestinal bleed and melena in a patient on chronic oral anticoagulation. Studies also suggest iron deficiency also evident in this presentation. The patient's special needs she is at risk for further clinical decline. Workup and treatment will proceed comprehensibly. The patient was visited and interviewed and examined. Cumulative laboratory and radiographic data base will be considered and discussed. Pertinent ancillary medical records including ECW and PCI documentation when available was reviewed and considered. Given the patient's presenting concerns, past medical history, clinical findings and symptoms, she is admitted at this time will undergo further evaluation and disposition. Orders were written as per Computerized physician cost recorder system.......................................................................... .................... Consultative opinion will be sought as clinical circumstances justify. Initial consultation has been made to gastroenterology. Pain management needs will be addressed. Laboratory/ radiographic data base will be updated as appropriate. Studies include: fecal occult stool, pt/inr, aptt, UA, cardiac injury panel, BNP, metabolic and hematologic panel, magnesium, phosphorus, ionized calcium, thyroid panel, lipid profile, A1c, C-peptide, CRP, sedimentation rate, blood gas , lactic acid, serologies, etc. Type and screen: 2 units packed red blood cells and transfuse when available. Goal Hgb>9.0 or as clinical findings and symptoms dictate. Transfusion:2 units fresh frozen plasma. Infusion: IV vitamin K. Hold chronic anticoagulation (warfarin) pending confirmation of resolution of upper GI bleed and symptomatic acute blood loss. Precautions: Aspiration, fall, delirium protocol/surveillance initiated. Telemetry with continuous hemodynamic monitoring and pulse oximetry initiated. Empiric antibody coverage: Intravenous Rocephin and azithromycin pending culture data. Special studies: CT abd/pelvis/chest, chest x-ray, telemetry, EKG. Pulmonary toilet: Incentive spirometry, aerosol bronchodilator, mucolytic, antitussive, supplemental oxygen. Corticosteroid therapy. CPAP/BiPAP supplemental oxygen delivery. Aerosol Mucomyst therapy. Fluid and electrolyte repletion efforts will proceed. Careful attention to fluid balance and renal recovery will be emphasized. Avoidance of nephrotoxic exposure and adverse drug drug interaction in the setting of impaired renal function will be monitored closely. Acute coronary syndrome protocol/surveillance initiated. DVT and PUD prophylaxis initiated: PPI therapy, intermittent pneumatic cuffs. Early ambulation will be encouraged. Immunization updates recommended. Influenza and pneumococcal vaccinations as part of ongoing preventative healthcare recommendations strongly recommended. Smoking cessation counseling briefly addressed. Patient is a former smoker. Advanced care directive discussion briefly addressed. Patient does not declare any healthcare restrictions at this time. Cardiovascular risk appraisal and cardiovascular risk reduction efforts will be emphasized. Physical /occupational therapy asked to evaluate patient's functional capacity and progressive mobility as circumstances permit. Sliding scale insulin coverage, ADA dietary restraint and schedule an as-needed basis fingerstick glucose assessments were initiated. Nutrition/diabetes education counseling may be considered as circumstances justify. Outpatient medication schedules will be reviewed, confirmed and facilitated as appropriate. Reconciliation of home treatments including adjustments, substitutions and reintroduction into the treatment regimen will address necessary maintenance therapies for chronic pre-existing medical conditions. Plan of care has been reviewed and discussed in detail with the patient. Questions addressed. Hospital course dictated by clinical findings, treatment response and potential consultative interventions. Patient is a risk for further acute clinical decline due to her frailty, chief complaints and comorbid conditions. Condition is serious. Prognosis is guarded. CODE STATUS is full. Past Med Surg Social Fam HX - Past Medical History Medical history: arthritis, asthma, atrial fibrillation, cancer, cardiomyopathy , CHF, COPD, coronary artery disease, DVT, diabetes, GERD, hyperlipidemia, hypertension, malignancy, myocardial infarction, osteoporosis, renal disease, venous stasis, valvular heart disease, other Psychiatric history: anxiety, other - Past Surgical History Surgical History: appendectomy, breast surgery, coronary bypass (CABG) - Social History Smoking Status: Former smoker Smokeless Tobacco Status: No Alcohol use: none Drug use: none Occupational status: unemployed, retired Current living situation: Home, With Family Activity Level: Independent ambulation, Mostly sedentary Recent Out of Country Travel Within the Last 8 Weeks: No Exposure or Possible Exposure to Illness During Travel: No - Family History Father Adopted: [place]: Zaid Pulido Family Member Ethnicity: Non- Living Status: Age at : 59 Hx Family Cardiac Disorders: Yes Hx Family Respiratory Disorders: Yes Hx Family Cancer: Yes (Liver cancer) Hx Family GI Disorders: No Hx Family Endocrine Disorder: Yes Hx Family Neuromuscular Disorders: No Hx Family Neurologic Disorders: No Hx Family HEENT Disorders: No Hx Family Autoimmune Disorders: No Internal Medicine - H&P: Meds Cholecalciferol (D-3) [Vitamin D] 2,000 unit PO DAILY 04/18/16 [History] Diphenoxylate/Atropine [Lomotil 2.5 mg/0.025 mg] 1 tab PO BID PRN 04/18/16 [ History] Gabapentin [Neurontin] 900 mg PO HS 04/18/16 [History] Losartan/Hydrochlorothiazide [Hyzaar 100-12.5 Tablet] 1 tab PO DAILY 04/18/16 [ History] Metformin HCl [Metformin HCl ER] 500 mg PO BID 04/18/16 [History] Aspirin Enteric Coated [Aspirin EC] 81 mg PO DAILY #30 tablet. 06/14/16 [Rx] Atorvastatin [Lipitor] 10 mg PO HS #30 tablet 06/14/16 [Rx] Digoxin [Lanoxin] 0.125 mg PO DAILY #30 tablet 06/14/16 [Rx] Citalopram Hydrobromide [Celexa] 30 mg PO DAILY 07/23/16 [History] Metoprolol Succinate 200 mg PO BID 07/23/16 [History] Warfarin [Coumadin] 2 mg PO THSA 07/23/16 [History] Warfarin [Coumadin] 4 mg PO SUMOTUWEFR 07/23/16 [History] Diltiazem CD (24hr) [Cardizem CD] 120 mg PO DAILY #30 cap.er.24h 07/26/16 [Rx] Allergies No Known Allergies Allergy (Verified 06/12/16 09:27) All Systems PM: A 10-system review of systems was performed and is negative for pertinent findings except as documented above in the HPI. Allergies Allergy/AdvReac Type Severity Reaction Status Date / Time No Known Allergies Allergy Verified 06/12/16 09:27 Patient Problems (Last Updated 09/07/16 @ 02:36 by Philip Jacobs MD) Atrial flutter (Acute Medical) I48.92 Dyspnea, unspecified (Acute Medical) R06.00 Hypertension (Acute Medical) I10 Diabetes mellitus (Acute Medical) E11.9 DVT prophylaxis (Acute Medical) Anemia (Acute Medical) D64.9 Morbid obesity (Chronic Medical) E66.01 Atrial flutter with rapid ventricular response (Acute Medical) I48.92 CAD (coronary artery disease) (Chronic Medical) I25.10 Afib (Acute Medical) I48.91 Pneumonia (Acute Medical) J18.9 CHF (congestive heart failure) (Chronic Medical) I50.9 Thrombus of left atrial appendage (Acute Medical) Hypomagnesemia (Acute Medical) E83.42 Flutter-fibrillation (Acute Medical) I49.8 Mural thrombus of cardiac apex (Acute Medical) Mural thrombus of heart (Chronic Medical) CHF (NYHA class III, ACC/AHA stage C) (Acute Medical) I50.9 Atrial flutter with rapid ventricular response (Acute Medical) I48.92 Dyspnea (Acute Medical) R06.00 Acute on chronic systolic heart failure (Acute Medical) I50.23 Diabetes mellitus type 2, noninsulin dependent (Chronic Medical) E11.9 Essential hypertension (Acute Medical) I10 Anticoagulated on Coumadin (Chronic Medical) Z51.81, Z79.01 Acute renal injury (Acute Medical) N17.9 Anemia (Acute Medical) D64.9 FRAN (acute kidney injury) (Acute Medical) N17.9 Pleural effusion (Chronic Medical) J90 GI bleed (Acute Medical) K92.2 Acute blood loss anemia (Acute Medical) D62 Chronic blood loss anemia (Acute Medical) D50.0 Symptomatic anemia (Acute Medical) D64.9 UGIB (upper gastrointestinal bleed) (Acute Medical) K92.2 Atrial fibrillation and flutter (Chronic Medical) I48.91, I48.92 Anxiety (Inactive Medical) F41.9 Hyperventilation syndrome (Inactive Medical) F45.8 Stress and adjustment reaction (Inactive Medical) F43.29 - Constitutional Constitutional: as per HPI, fatigue, malaise, weakness, other, no chills, no fever(s), no night sweats - EENT Eyes: as per HPI, no change in vision, no discharge, no pain, no photophobia Ears: as per HPI, no ear discharge, no ear pain, no tinnitus Nose, mouth and throat: as per HPI, no dysphagia, no nasal discharge, no neck pain, no sore throat - Breasts Breasts: as per HPI, other - Cardiovascular Cardiovascular ROS IM: as per HPI, chest pain, dyspnea, dyspnea on exertion, edema, no diaphoresis, no lightheadedness, no palpitations, no syncope - Respiratory Respiratory: as per HPI, dyspnea, dyspnea on exertion, wheezing, no cough, no hemoptysis, no excessive phlegm production - Gastrointestinal Gastrointestinal: as per HPI, melena, other, no abdominal pain, no coffee ground emesis, no diarrhea, no hematemesis, no hematochezia, no nausea, no vomiting - Genitourinary Genitourinary: as per HPI, no change in urinary stream, no dysuria, no flank pain, no hematuria - Musculoskeletal Musculoskeletal ROS IM: as per HPI, no numbness, no tingling - Integumentary Integumentary IM: as per HPI, no rash, no unusual bruising - Neurological Neurological ROS: as per HPI, no confusion, no convulsions, no focal weakness, no numbness, no tingling, no tremor(s) - Psychiatric Psychiatric: as per HPI - Endocrine Endocrine IM: as per HPI - Hematologic/Lymphatic Hematologic/Lymphatic: as per HPI, no easy bruising - Allergic/Immunologic Allergic/Immunologic: as per HPI - Constitutional Vitals: Temp Pulse Resp BP Pulse Ox 98.2 F 112 20 127/83 98 09/07/16 01:47 09/07/16 01:47 09/07/16 01:47 09/07/16 01:47 09/07/16 01:47 Vital Signs Temp Pulse Resp BP Pulse Ox 09/07/16 01:47 98.2 F 112 20 127/83 98 09/07/16 00:36 20 135/86 09/07/16 00:13 111 20 135/81 98 09/06/16 23:40 97.7 F 111 20 135/86 09/06/16 23:25 97.9 F 112 22 133/91 09/06/16 22:47 112 18 159/94 98 09/06/16 21:39 111 18 158/88 95 09/06/16 20:44 97.8 F 111 20 132/67 92 Intake and Output 09/06/16 09/06/16 09/07/16 15:59 23:59 07:59 Intake Total 51 / 51 Balance 51 / 51 Intake: IV Fluids / 51 AquaMephyton 10 MG In 0.9 51 / 51 % Sodium Chloride 50 ML @ 100 mls/hr IVPB ONCE ONE Rx#:[id number] Blood Product 0 / 0 Rbcs Leuko Poor As-1 0 / 0 Unit [id number] Other: Weight 95.254 kg 96.1 kg Patient Weight 09/07/16 23:59 Weight 96.1 kg General appearance: Present: cooperative, mild distress, A&O X 3, obese, answers questions appropriately - Head Head exam: Present: atraumatic, normocephalic - Eye Eye exam: Present: EOMI, PERRL, conjuntiva pink, sclera anicteric Pupils: Present: normal accommodation, PERRL - ENT ENT exam: Present: mucous membranes moist, normal oropharynx - Neck Neck exam general surgery: Present: full ROM, supple, trachea midline. Absent: lymphadenopathy - Respiratory Respiratory exam: Present: chest wall tenderness, decreased breath sounds, wheezes. Absent: accessory muscle use, CTAB, rales, rhonchi - Cardiovascular Cardiovascular exam: Present: distant heart sounds, RRR, +S1, +S2, tachycardia. Absent: diastolic murmur, gallop, rubs, systolic murmur - GI/Abdominal GI/Abdominal exam: Present: normal bowel sounds, soft, no peritoneal signs. Absent: distended, tenderness - Extremities Exam Extremities exam: Present: full ROM, pedal edema, warm, radial pulses palpable and symetrical. Absent: calf tenderness, cyanotic - Neurological Exam Neurological exam: Present: alert, CN II-XII intact, oriented X3, no focal deficits. Absent: pronater drift, facial droop, speech deficit - Psychiatric Psychiatric exam: Present: normal affect, normal mood - Skin Skin exam: Present: dry, intact, warm Internal Med - H&P Results - Labs CBC & Chem 7: 09/06/16 21:55 09/06/16 21:55 - Attending Attestation Vital Signs Temp Pulse Resp BP Pulse Ox 09/07/16 01:47 98.2 F 112 20 127/83 98 09/07/16 00:36 20 135/86 09/07/16 00:13 111 20 135/81 98 09/06/16 23:40 97.7 F 111 20 135/86 09/06/16 23:25 97.9 F 112 22 133/91 09/06/16 22:47 112 18 159/94 98 09/06/16 21:39 111 18 158/88 95 09/06/16 20:44 97.8 F 111 20 132/67 92 Allergies No Known Allergies Allergy (Verified 06/12/16 09:27) Home Medications Medication Instructions Recorded Confirmed Type Cholecalciferol (D-3) [Vitamin D] 2,000 unit PO DAILY 04/18/16 07/23/16 History Diphenoxylate/Atropine [Lomotil 1 tab PO BID PRN 04/18/16 07/23/16 History 2.5 mg/0.025 mg] Gabapentin [Neurontin] 900 mg PO HS 04/18/16 07/23/16 History Losartan/Hydrochlorothiazide 1 tab PO DAILY 04/18/16 07/23/16 History [Hyzaar 100-12.5 Tablet] Metformin HCl [Metformin HCl ER] 500 mg PO BID 04/18/16 07/23/16 History Citalopram Hydrobromide [Celexa] 30 mg PO DAILY 07/23/16 07/23/16 History Metoprolol Succinate 200 mg PO BID 07/23/16 07/23/16 History Warfarin [Coumadin] 2 mg PO THSA 07/23/16 07/23/16 History Warfarin [Coumadin] 4 mg PO SUMOTUWEFR 07/23/16 07/23/16 History Medications Acetaminophen (Tylenol) 650 mg PO Q6HR PRN PRN Reason: Mild Pain (1-3) Stop: 03/09/17 02:14 Aspirin (Aspirin Ec) 81 mg PO DAILY [facility] Stop: 03/09/17 09:01 Citalopram Hydrobromide (Celexa) 30 mg PO DAILY [facility] Stop: 03/09/17 09:01 Dextrose/Water (Dextrose 50% (Syg)) 25 ml IVP AD PRN PRN Reason: Hypoglycemia Stop: 03/09/17 02:14 Digoxin (Lanoxin) 0.125 mg PO DAILY [facility] Stop: 03/09/17 09:01 Diltiazem HCl (Cardizem Cd) 120 mg PO DAILY [facility] Stop: 03/09/17 09:01 Docusate Sodium (Colace) 100 mg PO BID PRN PRN Reason: Constipation Stop: 03/09/17 02:14 Gabapentin (Neurontin) 900 mg PO HS [facility] Stop: 03/09/17 21:01 Glucagon (Glucagen) 1 mg IM ONCE PRN PRN Reason: Hypoglycemia Stop: 03/09/17 02:14 Glucose (Gluctose) 15 gm PO ONCE PRN PRN Reason: Hypoglycemia Stop: 03/09/17 02:14 Glucose (Gluctose) 30 gm PO ONCE PRN PRN Reason: Hypoglycemia Stop: 03/09/17 02:14 Sodium Chloride (0.9 % Sodium Chloride) 1,000 mls @ 50 mls/hr IVC .Q20H [facility] Stop: 03/09/17 02:16 Dextrose (Dextrose 5%) 1,000 mls @ 100 mls/hr IVC .Q10H PRN PRN Reason: HYPOGLYCEMIA Stop: 03/09/17 02:14 Insulin Human Lispro (Humalog) 0 units SQ TIDAC [facility] PRN Reason: Protocol Stop: 03/09/17 07:31 Insulin Human Lispro (Humalog) 0 units SQ HS PHONG PRN Reason: Protocol Stop: 03/09/17 21:01 Morphine Sulfate (Morphine Sulfate) 2 mg IVP Q4HR PRN PRN Reason: Severe Pain (7-10) Stop: 03/09/17 02:14 Naloxone HCl (Narcan) 0.4 mg IVP Q2MIN PRN PRN Reason: Opioid Reversal Stop: 03/09/17 02:14 Non-Formulary Medication (Metoprolol Succinate [Metoprolol Succinate]) 100 mg PO BID [facility] Stop: 03/09/17 09:01 Omeprazole (Prilosec) 20 mg PO DAILY@0630 PHONG PRN Reason: Protocol Stop: 03/09/17 06:31 Ondansetron HCl (Zofran) 4 mg IVP Q8HR PRN PRN Reason: Nausea And Vomiting Stop: 03/09/17 02:14 Oxycodone HCl (Roxicodone) 5 mg PO Q6HR PRN PRN Reason: Moderate Pain (4-6) Stop: 03/09/17 02:14 Simvastatin (Zocor) 20 mg PO HS [facility] Stop: 03/09/17 21:01 Discontinued Medications Phytonadione 10 mg/ Sodium (Chloride) 51 mls @ 100 mls/hr IVPB ONCE ONE Stop: 09/06/16 22:09 Last Infusion: 09/06/16 22:46 Dose: 0 mls/hr Sodium Chloride (0.9 % Sodium Chloride) Confirm Administered Dose 500 mls @ as directed .ROUTE .STK-MED ONE Stop: 09/06/16 23:20 Last Admin: 09/06/16 23:33 Dose: 75 directed I & O 09/04/16 09/05/16 09/06/16 09/07/16 23:59 23:59 23:59 23:59 Intake Total Balance Weight 95.254 kg 96.1 kg Intake: IV Fluids AquaMephyton 10 MG In 0.9 51 / 51 % Sodium Chloride 50 ML @ 100 mls/hr IVPB ONCE ONE Rx#:[id number] Blood Product 0 / 0 Rbcs Leuko Poor As-1 0 / 0 Unit [id number] Nursing Notes 09/07/16 02:09 Nurse Note by Cristina Gautam Med list obtained by patient's daughter. Does not have dosages listed. Patient sticker applied to document and placed in chart. Information provided as follows : 0600 medications Cardizem 1 pill Vitamin D3 1 pill Metformin 1 pill Losartan/HCTZ 1 pill Diphenoxylate/Atropine 1 pill Aspirin 1 pill Digoxin 1 pill Metoprolol 2 pills 2100 medications Warfarin-as directed Citalopram 1.5 pills Atorvastatin 1 pill Gabapentin 3 pills Metoprolol 2 pills Diphenoxylate/Atropine 1 pill Metformin 1 pill Date/time last doses taken has been updated on home medication list. Will pass list along to dayshift RN, as patient uses [facility] and they are closed at this time and will be unable to provide us with a list of recently filled medication dosages until tomorrow. Initialized on 09/07/16 02:09 - END OF NOTE 09/07/16 02:01 Nurse Note by Cristina Gautam Per direction of Dr Jacobs, plan to infuse 2 units PRBCs and 1 unit FFP, then reassess H&H and coagulation times and make decision regarding whether or not to continue to transfuse. Initialized on 09/07/16 02:01 - END OF NOTE 09/06/16 23:41 Nurse Note by Berna Arana A S/P 15 minutes from beginning of blood transfusion. Pt has no complaints. No crackles auscultated throughout lung bases. VSS Initialized on 09/06/16 23:41 - END OF NOTE 09/06/16 22:12 Nurse Note by Berna Arana A critical result recieved from lab @ [address] Cruz informed at 2211 of HGB 5.7 Initialized on 09/06/16 22:12 - END OF NOTE Assessments/Treatments 12 lead ECG assessment Start: 09/06/16 21: 35 Freq: NOW Status: Complete Document 09/06/16 21:39 THEO (Rec: 09/06/16 21:42 THEO [id number]) EKG Time EKG Completed 20:57 EKG performed by triage EKG shown to and signed by Pallaci ED Discharge Assessment Start: 09/06/16 20: 49 Freq: Status: Complete Document 09/07/16 00:36 THEO (Rec: 09/07/16 00:38 THEO [id number]) ED Discharge Assessment ED Discharge Disposition Admitted ED Condition on Discharge Fair Med Rec/Patient Pharmacy Completed? Yes Barriers to Learning None Admitted to 2A Transported by nurse Report given to Nurse Care transferred to (name/credentials) RUY Evans Information relayed patient's care treatments medications given condition recent/anticipated changes Clinical Documentation Summary Provided Yes Pain Scale 0 Pain Scale Used Standard (1-10) Blood Pressure 135/86 Heart rate 111 Respiratory Rate 20 Oxygen Delivery Nasal Cannula Oxygen Saturation 99 Critical Care Minutes 0 ED Recheck Assessment Start: 09/06/16 20: 49 Freq: Status: Complete Document 09/06/16 21:39 THEO (Rec: 09/06/16 21:42 [id number] Recheck Assessment Symptoms/Complaint Abnormal Lab Onset today Initial Visit (Ago) Hours Description of Abnormal Result Pt states she had blood drawn today and her hgb was 5 something. She does not complain of any abdominal pain / She states she has noticed blood in her stool/dark stools occasionally. Cap refil is less than 3 sec. Pt does appear slightly pale. Level Of Consciousness Awake Alert Appropriate Skin Temperature Warm Skin Moisture Dry Respiratory Depth Normal Respiratory Effort Normal for Patient Spontaneous Non-Labored Fall Precautions Acute Start: 09/07/16 00: 40 Freq: Q12H Status: Active Document 09/07/16 01:51 TLL (Rec: 09/07/16 01:51 TLL [id number]) [facility] Fall Risk Assessment Tool High Fall Risk-Implement High Fall Risk History of more than one fall interventions per protocol within 6 months before admission Fall Risk Category High Risk Fall Risk Interventions Low Risk Interventions Bed in lowest position Top side rails up x 2 Secure brake on bed Use properly fitting non-skid footwear Call light and frequently needed objects within reach Encourage patients/families to call for assistance when needed Fall education including risk assessment, injury risk and routine/ Inspect environment for safety and communication risk Supervise and assist with toileting/ADLs as needed Moderate Risk Interventions Institue fall-risk tooklit ( yellow flag, yellow non-skid socks and High Risk Interventions Remain with patient while toileting Activate bed/chair exit IV-Invasive Line Management Start: 09/07/16 00: 40 Freq: Q4H Status: Active Document 09/07/16 01:40 KMA (Rec: 09/07/16 02:01 BEKA [id number]) IV/Invasive Line Assessment Left Antecubital Date of Insertion 09/06/16 Time of Insertion 21:59 Reason for Line Insertion/Rationale for Provide Access for IV Insertion Medication(s) Provide Access for Blood Provide Access for Emergency Gauge (gauge) 18 IV Catheter Type Peripheral IV Site Observation Patent Site Observation Intervention Inspected Line Dressing Applied Dry/Intact Date Dressing Last Changed 09/06/16 Labs drawn from Line* No Document 09/07/16 01:52 TLL (Rec: 09/07/16 01:53 TLL [id number]) IV/Invasive Line Assessment Left Antecubital Date of Insertion 09/06/16 Time of Insertion 21:59 Reason for Line Insertion/Rationale for Provide Access for IV Insertion Medication(s) Provide Access for Blood Provide Access for Emergency Gauge (gauge) 18 IV Catheter Type Peripheral IV Site Observation Patent Dressing Applied Transparent Dressing Line Care Saline Flush Labs drawn from Line* No Initial Patient Assessment Start: 09/07/16 00: 40 Freq: .ONCE Status: Active Document 09/07/16 01:57 TLL (Rec: 09/07/16 02:08 TLL [id number]) General Questions Date of Arrival on Unit 09/07/16 Time of Arrival on Unit 01:30 Admitted From Emergency Dept Chief Complaint weakness Onset of Chief Complaint 09/07/16 History Provided By Patient Family Member Orientation To Call Light Bed Phone TV Bathroom Smoking Policy Visiting Hours ID Bracelet On Emergency Contact Name Ethel Relationship to Patient daughter Emergency Contact Bands applied ID band DNR band Allergy band Compromised extremity band Patient Health Portal Patient was provided information on Yes accessing patient portal Patient Requests Portal Enrollment No Reason No Portal Enrollment No Email Malnutrition Screening Tool (MST) Have You Recently Lost Weight Without Yes Trying If Yes, How Much Weight Have You Lost 2-13 Pounds Have You Been Eating Poorly Because of a Yes Decreased Appetite MST Score 2 Advance Directives Advance Directives No Advance Directives Information Provided Yes Advance Directives on File No Patient Rights Copy of Rights Given and Verbalizes Yes Understanding Tobacco Free [place]: Copy of S Yes Statement Given and Patient Verbalizes Understanding Communication Ability Primary Language Citizen Of [place] Preferred Language Citizen Of [place] Riveter Helper Required No Ability to Follow Directions Good Able to Read Yes Able to Write Yes Communication Tools None Learning Preferences Written Discussion Hearing Ability Normal Visual Assistive Devices Glasses Pain Assessment Do You Have Any Ongoing (Chronic) Pain No Problems Educated on Pain Scale Yes Past Medical History Medical history asthma cancer CHF diabetes hyperlipidemia hypertension Female Surgical History appendectomy breast surgery coronary bypass (CABG) Psychiatric history anxiety Smoking Status Former smoker Smokeless Tobacco Status No Alcohol use none Drug use none Occupational status other Current living situation Home Activity level Uses cane/walker Recent Out of Country Travel Within the No Last 8 Weeks Exposure or Possible Exposure to Illness No During Travel Family History-Meaningful Use Father Adopted [place] Zaid Pul[place] Race Ethnicity Non- Living Status Age at 58 Hx Family Cardiac Disorders Yes Hx Family Cancer Yes: Liver cancer Hx Family GI Disorders No Hx Family Endocrine Disorder Yes Hx Family Neuromuscular Disorders No Hx Family Neurologic Disorders No Hx Family HEENT Disorders No Hx Family Autoimmune Disorders No Psychosocial Over Age 75 and Lives Alone or Over Age No 80 Potential Need for Follow-up Care (ECF, No Home Health, ECT) Developmentally Disabled or History of No Mental Health Problems Diagnosis with Care Home Need or No Terminal Implications Responsible for Care of Others No Financial Concerns No Suspected Abuse or Neglect No Suicidal or Homicidal Ideation No Social Service Consult Needed No Functional Assessment Employment Status had health issues didnt return to wrong Community Services Used Prior to Respiratory Therapy Admission Eating (Feeding) Ability Independent Bathing Ability Minimum Assistance Upper Body Dressing Ability Minimum Assistance Lower Body Dressing Ability Minimum Assistance Ambulation Ability 1 Person Assist Toileting Ability Setup Bladder Incontinent Bowel Incontinent Normal Bowel Pattern Daily Date of Last Known Bowel Movement 09/06/16 Measure weight Start: 09/07/16 00: 40 Freq: Status: Active Document 09/07/16 01:47 SPG (Rec: 09/07/16 01:49 SPG [id number]) Height and Weight Weight 96.1 kg Weight Measurement Method Standing Scale Oxygen administration Start: 09/07/16 00: 40 Freq: Q12H Status: Active Document 09/07/16 01:53 TLL (Rec: 09/07/16 01:54 TLL [id number]) Oxygen Oxygen Delivery Method Nasal Cannula Oxygen Flow Rate (LPM) 2 Patient Belongings Start: 09/07/16 00: 40 Freq: .ONCE Status: Active Document 09/07/16 02:10 TLL (Rec: 09/07/16 02:13 TLL [id number]) Patient Belongings Belongings With Patient on Admission Yes At Bedside Patient Belongings Books Glasses Pants Shoes Sweatshirt Undergarments Patient Rounding Start: 09/07/16 00: 40 Freq: Q1H Status: Active Document 09/07/16 01:47 SPG (Rec: 09/07/16 01:49 SPG [id number]) Hourly Rounding Hourly Rounding Checked for Patient Positioning Patient Personal Items Placed Within Reach Checked Patient Pain Level Hourly Rounding Completed Yes Patient Awake Is family present? Yes: Daughter is with patient Equipment in Use Specialty Bed Safety Call Light Within Reach Bed Position Low Fall Precautions Phone Within Reach Bed Brake On Side Rails Up X2 Are the Floors Free From Trip Hazards? Yes Is the Room Free From Clutter? Yes Turn and Postion Bedrest No Document 09/07/16 01:56 TLL (Rec: 09/07/16 01:57 TLL [id number]) Hourly Rounding Hourly Rounding Checked for Patient Positioning Patient Helped to Bathroom or Assisted with Bedpan or Urinal Patient Personal Items Placed Within Reach Checked Patient Pain Level Hourly Rounding Completed Yes Patient Awake Is family present? Yes Equipment in Use Specialty Bed Safety Call Light Within Reach Bed Position Low Fall Precautions Bed Brake On Side Rails Up X2 Are the Floors Free From Trip Hazards? Yes Is the Room Free From Clutter? Yes Turn and Postion Bedrest Yes Turn Q 2HR No Patient Position Back Head of Bed Position (degrees) 30 Saline lock insertion/management Start: 09/06/16 21: 35 Freq: .ONCE Status: Complete Document 09/06/16 21:58 THEO (Rec: 09/06/16 21:59 THEO [id number]) IV Insertion/Site Assessment IV Attempt 1 Successful Successful Blood drawn and sent to Lab Yes Left Antecubital IV Established RN HEDIS No Date of Insertion 09/06/16 Time of Insertion 21:59 Reason for IV Insertion Provide Access for IV Medication(s) Provide Access for Blood Provide Access for Emergency Gauge (gauge) 18 Site Observation Patent Dressing Applied Transparent Dressing Patient Tolerance Tolerated Well Sepsis Screening Start: 09/07/16 00: 40 Freq: Q8H Status: Active Document 09/07/16 01:40 KMA (Rec: 09/07/16 02:01 KMA [id number]) Sepsis Screening Sepsis Infection Criteria Present none Sepsis SIRS Criteria HR > 90 bpm Sepsis Screen No Definite Risk Sepsis Action Taken no action required Document 09/07/16 01:54 TLL (Rec: 09/07/16 01:54 TLL [id number]) Sepsis Screening Sepsis Infection Criteria Present none Sepsis SIRS Criteria none Sepsis Screen No Definite Risk Sepsis Action Taken no action required Skin Risk Assessment Scale Start: 09/07/16 00: 40 Freq: Q12H Status: Active Document 09/07/16 01:54 TLL (Rec: 09/07/16 01:55 TLL [id number]) Skin Risk Assessment Scale Moisture Risk Rarely Moist Sensory Perception No Impairment Activity Risk Walks Occasionally Mobility Risk Slightly Limited Nutrition Risk Adequate Friction & Shear Risk No Apparent Problem Skin Risk Total Score (points) 20 System Review Start: 09/07/16 00: 40 Freq: Q8H Status: Active Document 09/07/16 01:40 KMA (Rec: 09/07/16 02:01 KMA [id number]) Pain Assessment Pain Present Reports Pain Abdomen Pain Intensity 7 Description Cramping Scale Used Numeric (1 - 10) Pain Intervention Provider Notified Comment Awaiting admission orders Neurological Assessment Eye Opening Spontaneous Motor Obeys Commands Verbal Oriented Coma Scale Total 15 Neurologic Status Alert Patient Orientation Person Place Time Arousable To Name Speech Pattern Normal rate Normal rhythm Normal tone Appropriate Clear Coherent Patient Behavior Appropriate Cooperative Mood Description Calm Relaxed Bilateral Pupil Reaction Reactive Pupil Size (mm) 3 Pupil [facility] PERRL Scleral Edema No Salad Maker Strength Equal Push/Pull Equal Numbness/Tingling No Facial Symmetry Symmetrical Cardiovascular Assessment Signs and Symptoms Stomach Pain Rapid Heart Rate Leg Edema Pedal Edema Heart Sounds S1 & S2 Pulse Rhythm Regular Jugular Vein Distention None Capillary Refill < 3 Seconds Circulatory Tenderness Description None Right Radial 2+ Left Radial 2+ Right Dorsalis Pedis 1+ Left Dorsalis Pedis 1+ Bilateral Lower Extremity Type Pitting Degree 2+ Chest Pain Complaint No Mechanical Prophylaxis No Cardiac Monitoring Heart Rate 111 Monitoring Method Telemetry Rhythm Sinus Tachycardia IN Interval 0.11 QRS Interval 0.06 QT Interval 0.26 Monitor Number [id number] Staffing Analyst Limits 130/50 Strip placed in Chart Yes Respiratory Assessment Respiratory Symptoms Tachycardia Effort Normal for Patient Spontaneous Non-Labored Depth Normal Respiratory Pattern Regular Chest Shape Normal Expansion Symmetrical All Lung Serrano Clear Diminished Oxygen Delivery Method Nasal Cannula Oxygen Flow Rate (LPM) 2 Cough Description None Sputum Amount None Gastrointestinal Assessment Abdomen Description Soft Non-Tender Large Round 3 or more loose stools, in less than 24 No hours Nausea/Vomiting Presence None All Four Quadrants Active Genitourinary Assessment Genitourinary Symptoms None Bladder Pattern Normal Voiding Method Toilet Bedside Commode Bladder Distention None Suprapubic Tenderness with Palpation No Integumentary Assessment Nail Bed Appearance [place] Temperature Warm Moisture Dry Turgor Normal Color Normal All Pressure Points Assessed Yes Evidence of Incision/Wounds/Breakdown No Mucous membranes moist, pink and intact Yes Oral Cavity Missing Teeth Musculoskeletal Assessment Musculoskeletal Symptoms Generalized Weakness TAR Intake Start: 09/06/16 23: 25 Freq: Status: Active Document 09/06/16 23:25 THEO (Rec: 09/06/16 23:25 [id number]) TAR.IO Rbcs Leuko Poor As-1 Unit [id number] Intake, Blood Product Amount 0 TAR Vital Signs Start: 09/06/16 23: 25 Freq: Status: Active Document 09/06/16 23:25 THEO (Rec: 09/06/16 23:27 [id number] TAR Vital Signs Temperature (97.6 F-99.6 F) 97.9 F Temperature Source Oral Pulse Rate 112 Rhythm Regular Strength Normal Respiratory Rate 22 Depth Normal Effort Normal for Patient Spontaneous Non-Labored Respiratory Pattern Regular Blood Pressure 133/91 Blood Pressure Mean (mm Hg) 105 Product Transfusion Rate (mls/hr) 75 Transfusion Completed?* No Document 09/06/16 23:40 THEO (Rec: 09/06/16 23:40 [id number] TAR Vital Signs Temperature (97.6 F-99.6 F) 97.7 F Temperature Source Oral Pulse Rate 111 Rhythm Regular Strength Normal Respiratory Rate 21 Depth Normal Effort Normal for Patient Spontaneous Non-Labored Respiratory Pattern Regular Blood Pressure 120/74 Blood Pressure Mean (mm Hg) 89 Product Transfusion Rate (mls/hr) 75 Document 09/06/16 23:40 THEO (Rec: 09/07/16 00:33 [id number] TAR Vital Signs Pulse Rate 111 Rhythm Regular Respiratory Rate 20 Depth Normal Effort Normal for Patient Spontaneous Non-Labored Respiratory Pattern Regular Blood Pressure 135/86 Blood Pressure Mean (mm Hg) 102 Product Transfusion Rate (mls/hr) 100 Transfusion Completed?* No Teaching Record Start: 09/07/16 00: 40 Freq: Q12H Status: Active Document 09/07/16 01:55 TLL (Rec: 09/07/16 01:55 TLL [id number]) Teaching Record: General Education Topics Hospital Environment Pertinence oriented to room and unit Response Verbalize understanding Methods Discussion Recipient Patient Family Triage Start: 09/06/16 20: 44 Freq: Status: Complete Document 09/06/16 20:44 RICHARD (Rec: 09/06/16 20:49 RICHARD [id number]) Triage Chief Complaint triage ED Recheck/Abnormal Lab/Rx Patient Stated Complaint critically low HGB LULÚ 2 Onset (ago) day(s) Description of Symptoms Pt states that her pcp called her today and told her that her HGB was critically low. Pt states that she has a blood clot in her heart and has been on medication for this. pt states that her heart feels like its racing today and she doesnt feel right. General Appearance alert in no apparent distress Work Related Injury? No Mode of arrival wheelchair Source patient family Limitations no limitations Ebola Risk: Travel/Contact With Anyone No From Affected Area/s Temperature (97.6 F-99.6 F) 97.8 F Temperature Source Oral Pulse Rate 111 Respiratory Rate 20 Blood Pressure 132/67 O2 Sat by Pulse Oximetry 92 Oxygen Delivery Nasal Cannula Height 1.65 m Weight 95.254 kg Weight Measurement Method Stated by Patient Pain Scale 0 Medical history asthma cancer CHF diabetes hyperlipidemia hypertension Additional medical history PMH breast cancer blood clot in heart Female surgical history appendectomy breast surgery cancer surgery coronary bypass (CABG) Additional surgical history PMH right mastectomy Psychiatric history anxiety Smoking Status Former smoker Smokeless Tobacco Status No Alcohol Use none Drug Use none Safety Concerns Feels Safe At This Time Do you currently feel hopless, have No thoughts of self harm, or thoughts of harming others History of fall in last 14 days? Yes Hx Now No Influenza vaccine up to date Yes Pneumonia vaccine up to date Yes Tetanus UTD unsure Father Family Member Ethnicity Non- Family Member Living Status Hx Family Cardiac Disorders Yes: cardiomegaly Hx Family Respiratory Disorders Yes Hx Family Cancer Yes: liver Hx Family GI Disease No Hx Family Endocrine Disorder Yes Hx Family Neuromuscular Dysfunction No Hx Family Neurologic Problems No Hx Family HEENT Problems No Hx Family Autoimmune Disease Problems No Vital Signs Assessment Start: 09/06/16 21: 35 Freq: PROTOCOL Status: Complete Document 09/06/16 21:39 THEO (Rec: 09/06/16 21:42 THEO [id number]) ED Vital Signs Pain Reported No Pain Reported Pain Scale 0 Pain Scale Used Standard (1-10) Blood Pressure 158/88 Pulse Rate 111 Rhythm Regular Respiratory Rate 18 Depth Normal Effort Normal for Patient Spontaneous Non-Labored Pulse Oximetry 95 Oxygen Delivery Room Air Document 09/06/16 22:47 THEO (Rec: 09/06/16 22:47 THEO [id number]) ED Vital Signs Pain Reported No Pain Reported Pain Scale 0 Pain Scale Used Standard (1-10) Blood Pressure 159/94 Pulse Rate 112 Rhythm Regular Strength Normal Respiratory Rate 18 Depth Normal Effort Normal for Patient Spontaneous Non-Labored Pulse Oximetry 98 Document 09/07/16 00:13 LAP (Rec: 09/07/16 00:14 LAP [id number]) ED Vital Signs Pain Reported No Pain Reported Pain Scale 0 Pain Scale Used Standard (1-10) Blood Pressure 135/81 Pulse Rate 111 Respiratory Rate 20 Effort Spontaneous Non-Labored Pulse Oximetry 98 Oxygen Delivery Nasal Cannula Oxygen Flow Rate (LPM) 2 Vital Signs Assessment Start: 09/07/16 00: 40 Freq: Q4H Status: Active Document 09/07/16 01:47 SPG (Rec: 09/07/16 01:49 SPG [id number]) Vital Signs with MEWS Temperature (97.6 F-99.6 F) 98.2 F Temperature Source Oral Pulse Rate 112 Respiratory Rate 20 Pulse Oximetry 98 Oxygen Delivery Nasal Cannula Oxygen Flow Rate (LPM) 2 Blood Pressure 127/83 Blood Pressure Location Left Radial Artery Source Automatic Cuff Position Supine Neuro Status *recalled from last Alert documentation MEWS Score 3 Orders 09/06/16 21:35 12 lead ECG assessment [RC] NOW Cardiac monitoring [RC] .ONCE Saline lock [RC] .ONCE Supplemental oxygen titration [RC] .ONCE Physician Instructions: Transfusion, red blood cells [RC] .STAT Vital Signs Assessment [RC] PROTOCOL XR chest 1V portable [XR] Stat Mode Of Transportation: Portable Reason For Exam: dyspnea Exam Performed At:: [facility] ECG 12 lead ECG [ECG] Stat Mode Of Transportation: Portable Reason For Exam: dyspnea Exam Performed At:: [facility] 09/06/16 21:39 Phytonadione [AquaMephyton] 10 mg 0.9 % Sodium Chloride 50 ml IVPB ONCE 09/06/16 21:55 B-Type Natriuretic Peptide Stat Comment: Specimen: Send someone from the department to collect Basic Metabolic Panel Stat Comment: Specimen: Send someone from the department to collect Complete Blood Count [HEME] Stat Comment: Specimen: Send someone from the department to collect PLASMA [BBK] Stat BBK Wristband Number: [id number] Comment: Quantity: 2 Specimen: Send someone from the department to collect Indicate reason for transfusion:: On Coumadin,serious bleed Red Blood Cells [BBK] Stat BBK Wristband Number: [id number] Comment: Quantity: 3 Specimen: Send someone from the department to collect Indicate Reason for RBC Trans: Hgb < 7g/dl Indicate condition for HGB <8: Signs/Symtoms of Anemia Has pt been within the last 3 months?: No Has pt been transfused within the last 3 months?: No Troponin I Stat Comment: Specimen: Send someone from the department to collect Type and Screen [BBK] Stat BBK Wristband Number: [id number] Comment: Specimen: Send someone from the department to collect 09/06/16 22:40 Transfusion, FFP [RC] .NOW 09/06/16 22:50 Fecal Hemoccult [Occult Blood,Stool] [BF] Stat Comment: Specimen: Send someone from the department to collect 09/06/16 23:06 PT/INR [Prothrombin Time INR] [COAG] Stat Comment: Specimen: Send someone from the department to collect 09/06/16 23:[address] Stat Comment: Reason for Visit: anemia, GIB, CP, dizziness, tachycardia 09/06/16 23:19 0.9 % Sodium Chloride 500 ml .ROUTE As Directed 09/07/16 02:09 Consult to Nutrition [CONS] Routine Comment: Consulting Provider: NUTRITION Reason for Dietary Consult: Other Other:: wt loss of 10 lbs or more 09/07/16 02:13 Glucose, blood poc measurement [RC] ACHS Hypoglycemia Treatment Orders [RC] .once Notify provider [RC] once Physician Instructions: Peripheral IV [RC] CONT Vital Signs Assessment [RC] Q4H Consult to Machine Sewer [CONS] Routine Comment: @ 100 MLS/HR [prn Hypoglycemia] D5% in Water [Dextrose 5%] 1,000 ml IVC 100 mls/ hr Acetaminophen [Tylenol] 650 mg PO Q6HR PRN Dextrose 50 % in Water (Syg) [Dextrose 50% (Syg)] 25 ml IVP AD PRN Dextrose Gel [Gluctose] 15 gm PO ONCE PRN Dextrose Gel [Gluctose] 30 gm PO ONCE PRN Docusate [Colace] 100 mg PO BID PRN Glucagon, Human Recombinant [GlucaGen] 1 mg IM ONCE PRN Morphine [Morphine Sulfate] 2 mg IVP Q4HR PRN Naloxone [Narcan] 0.4 mg IVP Q2MIN PRN Ondansetron [Zofran] 4 mg IVP Q8HR PRN OxyCODONE Immed Rel [Roxicodone] 5 mg PO Q6HR PRN Resuscitation Status: Active [RES] Routine Resuscitation Status: Full Code Comment: 09/07/16 02:14 Placement to Observation Routine Physician Instructions: Reason for Visit: Symptomatic blood loss anemia Is VTE Prophylaxis Indicated?: Yes 09/07/16 02:15 Bed rest w/bathroom privileges [RC] .PRN Cardiac Monitoring Med/Surg [RC] .CONT Telemetry Reason: New Arrhythmia Continuous pulse oximetry [RC] CONT Comment: Measure intake and output [RC] QSHIFT Measure weight [RC] DAILY RT has an order or consult [RC] NOW 0.9 % Sodium Chloride 1,000 ml IVC 50 mls/hr 09/07/16 02:16 Oxygen via nasal cannula Nasal Cannula 2 lpm Comment: Titrate O2 to main O2 sat greater than: 92% 09/07/16 02:17 Hgb A1C Routine Specimen: Send someone from the department to collect Comment: 09/07/16 02:22 Cardiac monitoring [RC] .ONCE Orthostatic Vital Signs [RC] .ONCE Saline lock [RC] .ONCE Metoclopramide [Reglan] 10 mg IVP ONCE ONE Pantoprazole [Protonix] 80 mg 0.9 % Sodium Chloride 50 ml IVPB ONCE 09/07/16 02:30 8 mg/hr (20 mL/hr)- 0.9 % Sodium Chloride Mini Bag [0.9 % Sodium Chloride (Mini- Bag +)] 100 ml Pantoprazole [Protonix] 40 mg IVC 20 mls/hr 09/07/16 04:00 Activated Partial Thrombo Time [COAG] AM 0400 Specimen: Send someone from the department to collect Comment: Hemoglobin and Hematocrit [HEME] Q6H Specimen: Send someone from the department to collect Comment: Hepatic Panel AM 0400 Specimen: Send someone from the department to collect Comment: Magnesium AM 0400 Specimen: Send someone from the department to collect Comment: Phosphorous AM 0400 Specimen: Send someone from the department to collect Comment: Prothrombin Time INR [COAG] AM 0400 Specimen: Send someone from the department to collect Comment: Urinalysis reflex Microscopic [URIN] AM 0400 Specimen: Send someone from the department to collect Comment: 09/07/16 06:30 Omeprazole [PriLOSEC] 20 mg PO DAILY@0630 09/07/16 07:30 Insulin LISPRO [HumaLOG] See Protocol SQ TIDAC 09/07/16 08:00 Consult to Gastroenterology [CONS] Routine Consulting Provider: Gastroenterology Alice Reason for Consult: Symptomatic acute blood loss anemia (hgb 5.7) while on coumadin 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 Please eval and advise.... Time Notified: 02:27 Call Completed: No 09/07/16 09:00 Aspirin Enteric Coated [Aspirin EC] 81 mg PO DAILY Citalopram [CeleXA] 30 mg PO DAILY Digoxin [Lanoxin] 0.125 mg PO DAILY Diltiazem CD (24hr) [Cardizem CD] 120 mg PO DAILY Metoprolol Succinate [Metoprolol Succinate] 100 mg PO BID How will this medication be supplied?: Pharmacy to Subsitute 09/07/16 10:00 Hemoglobin and Hematocrit [HEME] Q6H Specimen: Send someone from the department to collect Comment: 09/07/16 16:00 Hemoglobin and Hematocrit [HEME] Q6H Specimen: Send someone from the department to collect Comment: 09/07/16 21:00 Atorvastatin [Lipitor] 10 mg PO HS Gabapentin [Neurontin] 900 mg PO HS Insulin LISPRO [HumaLOG] See Protocol SQ HS 09/07/16 22:00 Hemoglobin and Hematocrit [HEME] Q6H Specimen: Send someone from the department to collect Comment: 09/07/16 Breakfast Clear Liquid Diet Diet Modifications: 09/08/16 04:00 Activated Partial Thrombo Time [COAG] AM 0400 Specimen: Send someone from the department to collect Comment: Prothrombin Time INR [COAG] AM 0400 Specimen: Send someone from the department to collect Comment: 09/09/16 04:00 Activated Partial Thrombo Time [COAG] AM 0400 Specimen: Send someone from the department to collect Comment: Prothrombin Time INR [COAG] AM 0400 Specimen: Send someone from the department to collect Comment: 09/10/16 04:00 Activated Partial Thrombo Time [COAG] AM 0400 Specimen: Send someone from the department to collect Comment: Prothrombin Time INR [COAG] AM 0400 Specimen: Send someone from the department to collect Comment: 09/11/16 04:00 Activated Partial Thrombo Time [COAG] AM 0400 Specimen: Send someone from the department to collect Comment: Prothrombin Time INR [COAG] AM 0400 Specimen: Send someone from the department to collect Comment: 09/12/16 04:00 Activated Partial Thrombo Time [COAG] AM 0400 Specimen: Send someone from the department to collect Comment: Prothrombin Time INR [COAG] AM 0400 Specimen: Send someone from the department to collect Comment: Laboratory Results 09/06/16 09/06/16 09/06/16 Range/Units 21:55 21:55 21:55 WBC 6.2 (4.3-11.1) K/mcL RBC 2.43 L (3.82-4.97) M/mcL Hgb 5.7 L* (11.5-15.4) g/dL Hct 20.4 L (35.3-44.9) % MCV 84.0 (83.0-100.0) fL MCH 23.5 L (28.0-33.3) pg MCHC 27.9 L (31.6-35.5) g/dL RDW 17.6 H (11.5-14.5) % Plt Count 191 (140-400) K/mcL MPV 9.3 L (9.4-12.4) fL Immature Gran % 0.3 (0-4) % Seg Neutrophils % 57.3 % Lymphocytes % 29.2 % Monocytes % 12.0 % Eosinophils % 1.0 % Basophils % 0.2 % Neutrophils # 3.6 (1.6-8.9) K/mcL Lymphocytes # 1.8 (0.6-4.6) K/mcL Monocytes # 0.7 (0.0-1.3) K/mcL Eosinophils # 0.1 (0.0-0.6) K/mcL Basophils # 0.0 (0.0-0.2) K/mcL Platelet Estimate Normal (Normal) Hypochromasia Present A (Not Present) Anisocytosis 2+ A (Not Present) PT (9.4-12.1) Seconds INR Sodium 144 (136-145) mEq/L Potassium 4.6 H (3.5-4.5) mEq/L Chloride 108 (98-109) mEq/L Carbon Dioxide 23 (19-29) mEq/L BUN 41 H (7-20) mg/dL Creatinine 1.52 H (0.57-1.11) mg/dL Est GFR ( Amer) 41 L (> 60) Est GFR (Non-Af Amer) 34 L (> 60) BUN/Creatinine Ratio 27 H (6-26) Glucose 110 H (70-99) mg/dL Calculated Osmolality 309 H (280-300) Calcium 9.9 (8.6-10.8) mg/dL Troponin I 0.02 (0-0.03) ng/mL B-Natriuretic Peptide (0-100) pg/mL Stool Occult Blood (Negative) Blood Type Antibody Screen Crossmatch 09/06/16 09/06/16 09/06/16 Range/Units 21:55 21:55 22:50 WBC (4.3-11.1) K/mcL RBC (3.82-4.97) M/mcL Hgb (11.5-15.4) g/dL Hct (35.3-44.9) % MCV (83.0-100.0) fL MCH (28.0-33.3) pg MCHC (31.6-35.5) g/dL RDW (11.5-14.5) % Plt Count (140-400) K/mcL MPV (9.4-12.4) fL Immature Gran % (0-4) % Seg Neutrophils % % Lymphocytes % % Monocytes % % Eosinophils % % Basophils % % Neutrophils # (1.6-8.9) K/mcL Lymphocytes # (0.6-4.6) K/mcL Monocytes # (0.0-1.3) K/mcL Eosinophils # (0.0-0.6) K/mcL Basophils # (0.0-0.2) K/mcL Platelet Estimate (Normal) Hypochromasia (Not Present) Anisocytosis (Not Present) PT (9.4-12.1) Seconds INR Sodium (136-145) mEq/L Potassium (3.5-4.5) mEq/L Chloride (98-109) mEq/L Carbon Dioxide (19-29) mEq/L BUN (7-20) mg/dL Creatinine (0.57-1.11) mg/dL Est GFR ( Amer) (> 60) Est GFR (Non-Af Amer) (> 60) BUN/Creatinine Ratio (6-26) Glucose (70-99) mg/dL Calculated Osmolality (280-300) Calcium (8.6-10.8) mg/dL Troponin I (0-0.03) ng/mL B-Natriuretic Peptide 1230 H (0-100) pg/mL Stool Occult Blood Positive A (Negative) Blood Type O POSITIVE Antibody Screen NEGATIVE Crossmatch See Detail 09/06/16 Range/Units 23:06 WBC (4.3-11.1) K/mcL RBC (3.82-4.97) M/mcL Hgb (11.5-15.4) g/dL Hct (35.3-44.9) % MCV (83.0-100.0) fL MCH (28.0-33.3) pg MCHC (31.6-35.5) g/dL RDW (11.5-14.5) % Plt Count (140-400) K/mcL MPV (9.4-12.4) fL Immature Gran % (0-4) % Seg Neutrophils % % Lymphocytes % % Monocytes % % Eosinophils % % Basophils % % Neutrophils # (1.6-8.9) K/mcL Lymphocytes # (0.6-4.6) K/mcL Monocytes # (0.0-1.3) K/mcL Eosinophils # (0.0-0.6) K/mcL Basophils # (0.0-0.2) K/mcL Platelet Estimate (Normal) Hypochromasia (Not Present) Anisocytosis (Not Present) PT 26.7 H (9.4-12.1) Seconds INR 2.4 Sodium (136-145) mEq/L Potassium (3.5-4.5) mEq/L Chloride (98-109) mEq/L Carbon Dioxide (19-29) mEq/L BUN (7-20) mg/dL Creatinine (0.57-1.11) mg/dL Est GFR ( Amer) (> 60) Est GFR (Non-Af Amer) (> 60) BUN/Creatinine Ratio (6-26) Glucose (70-99) mg/dL Calculated Osmolality (280-300) Calcium (8.6-10.8) mg/dL Troponin I (0-0.03) ng/mL B-Natriuretic Peptide (0-100) pg/mL Stool Occult Blood (Negative) Blood Type Antibody Screen Crossmatch Radiology Impressions Chest X-Ray 09/06/16 21:35 IMPRESSION: New moderate-sized right pleural effusion. D/ / 09/06/2016 22:28:49 Antoine Randle MD / selma Interpreting Provider: Antoine Randle MD Discharge Information ED Provider: Mathew Serrano Status: Departed Time Seen by Provider: 09/06/16 21:07 Condition: Fair Triaged At: 09/06/16 20:44 Other ED Providers: Shannan Carbajal,Sofy Zimmerman,Mathew Mancini Emergency Discharge Date/Time: 09/07/16 01:19 Emergency Discharge Disposition: Admitted As Inpatient Clinical Impression Anemia FRAN (acute kidney injury) Pleural effusion GI bleed Emergency Discharge Comment: Admit Intervention Last Done ED Recheck Assessment 09/06/16 21:39 Query Result Recheck Symptoms/Complaint Abnormal Lab Recheck Onset today Recheck Initial Visit (Ago) Hours Recheck Description of Abnormal Result Pt states she had blood drawn today and her hgb was 5 something. She does not complain of any abdominal pain / She states she has noticed blood in her stool/dark stools occasionally. Cap refil is less than 3 sec. Pt does appear slightly pale. Level Of Consciousness Awake Alert Appropriate Skin Temperature Warm Skin Moisture Dry Respiratory Depth Normal Respiratory Effort Normal for Patient Spontaneous Non-Labored ED Discharge Assessment 09/07/16 00:36 Query Result ED Discharge Disposition Admitted ED Condition on Discharge Fair Med Rec/Patient Phamracy completed? Yes Barriers to Learning None ED Admit to 2A Transported by nurse Report given to Nurse Care transferred to RUY Evans Information relayed patient's care treatments medications given condition recent/anticipated change Clinical Documentation Summary Provided Yes Severity scale (1-10) 0 Pain Scale Used Standard (1-10) Blood Pressure 135/86 Heart rate 111 Respiratory Rate 20 Oxygen Delivery Nasal Cannula Pulse Oximetry Reading 99 Critical Care Minutes 0 Observation Discharge Date/Time: Observation Discharge Disposition: Observation Discharge Comment: Instructions: Stand-Alone Forms: Prescriptions: Visit Report - Forms: - Referrals:
[2016-09-07] MEDS: Pantoprazole 40 MG in 0.9 % Sodium Chloride Mini Bag 100 ML IVC SCH ×2 (04:16→08:55)
[2016-09-07] MEDS: Aspirin Enteric Coated 81 MG Tablet PO SCH (08:55)
[2016-09-07] MEDS: Diltiazem CD (24hr) 120 MG CAPSULE PO SCH (08:55)
[2016-09-07] MEDS: *HR* Digoxin 0.125 MG TABLET PO SCH (08:55)
[2016-09-07] MEDS: Insulin LISPRO 300 UNITS/3 ML VIAL SQ SCH ×5 (09:29→21:59)
--- NOTE | 2016-09-07 11:31 | Gastroenterology Consult Note ---
<Mathew Zapien - Last Filed: 09/07/16 11:27> Date of Encounter: 09/07/16 Time of Encounter: 10:00 - Assessment and plan (1) Anemia Current Visit: No Status: Acute Assessment and plan: Hgb on admission 5.7. She has received 2 units PRBC. Continue to monitor CBC and transfuse PRBC as needed. Plan for EGD tomorrow to r/o esophagitis, gastritis, duodenitis, PUD, MW tear, or AVM. Pt wants to discuss EGD with her family before consenting to procedure. Qualifiers: Anemia type: iron deficiency Iron deficiency anemia type: other iron deficiency Qualified Code(s): D50.8 - Other iron deficiency anemias (2) Thrombus of left atrial appendage Current Visit: No Status: Acute Assessment and plan: Coumadin on hold. Consider bridge therapy with heparin, if indicated. (3) Coagulopathy Current Visit: Yes Status: Acute Assessment and plan: Pt on Coumadin due to thrombus of left atrial appendage. INR 2.4 on admission, and has received 2 FFP. Will plan for EGD once INR less than 1.5. - Time Spent With Patient Total time spent is greater than 50% in coordination of care (as documented) at patient's floor/unit and/or counseling patient: GI History of Present Illness - Data of Consult Patient: new to practice Consult date: 09/07/16 Requesting Physician: Kristine Mcfarland MD - Consult Narrative Reason for consult: anemia History of present illness: Ms. Hernández is a 65 year old female with PMHx of arthritis, astma, Afib, cardiomyopathy, CHF, COPD, CAD, DVT, DM, GERD, HLD, HTN, and NE who was sent to the ED by his PCP for Hgb of 5.7. Her Hgb was 8 in July 2016, and 9.6 in June 2016. The patient is taking Coumadin for Afib, and her INR on admission was 2.4. She reports SOB, weakness, and fatigue for the past 2 weeks. She admits to melena, but denies any hematochezia. No abdominal pain, nausea, vomiting, hematemesis, epistaxis, or hematuria. iron 59 and ferritin 27 on . Procedures: EGD 04/10/[address] York: Single large nodule/lipoma with no bleeding in stomach, hiatus hernia NSAIDs: ASA Anticoagulation: None Past Med Surg Social Fam HX - Past Medical History Medical history: asthma, cancer, CHF, diabetes, hyperlipidemia, hypertension Psychiatric history: anxiety - Past Surgical History Surgical History: appendectomy, breast surgery, coronary bypass (CABG) - Social History Smoking Status: Former smoker Smokeless Tobacco Status: No Alcohol use: none Drug use: none - Family History Father Adopted: [place]: Zaid Pulido Family Member Ethnicity: Non- Living Status: Age at : 59 Hx Family Cardiac Disorders: Yes Hx Family Respiratory Disorders: Yes Hx Family Cancer: Yes (Liver cancer) Hx Family GI Disorders: No Hx Family Endocrine Disorder: Yes Hx Family Neuromuscular Disorders: No Hx Family Neurologic Disorders: No Hx Family HEENT Disorders: No Hx Family Autoimmune Disorders: No - Gastrointestinal Gastrointestinal: Present: as per HPI - Constitutional Constitutional: as per HPI - EENT Eyes: as per HPI Ears: Present: as per HPI Nose, mouth and throat: Present: as per HPI - Cardiovascular Cardiovascular ROS: Present: as per HPI - Respiratory Respiratory IM: Present: as per HPI - Genitourinary Genitourinary: Absent: change in color, Urinary frequency - Neurological ROS Neurological GI: Present: as per HPI - Hematologic/Lymphatic Hematologic/Lymphatic pediatric: Present: as per HPI - Musculoskeletal Musculoskeletal ROS GI: Present: as per HPI - Integumentary Integumentary GI: Present: as per HPI - Psychiatric ROS Psychiatric GI: Present: as per HPI - Endocrine Endocrine IM: Present: as per HPI - Constitutional Vitals: Temp Pulse Resp BP Pulse Ox 98.2 F 104 19 144/80 96 09/07/16 11:13 09/07/16 11:13 09/07/16 11:13 09/07/16 11:13 09/07/16 11:13 General appearance: Present: cooperative, A&O X 3, no acute distress, answers questions appropriately - Head Head exam: Present: atraumatic, normocephalic - Eye Eye exam: Present: normal appearance, sclera anicteric - ENT ENT exam: Present: mucous membranes dry - Neck Neck exam general surgery: Present: normal inspection, trachea midline - Respiratory Respiratory exam: Present: decreased breath sounds, CTAB. Absent: rales, rhonchi - Cardiovascular Cardiovascular exam: Present: RRR, +S1, +S2 - GI/Abdominal GI/Abdominal exam: Present: soft, no peritoneal signs. Absent: distended, firm , guarding, tenderness - Rectal Rectal exam: Present: deferred - Extremities Exam Extremities exam: Present: warm - Neurological Exam Neurological exam: Present: no focal deficits - Psychiatric Psychiatric exam: Present: normal affect, normal mood - Skin Skin exam: Present: dry, intact, normal color, warm Results - Labs CBC & Chem 7: 09/06/16 21:55 09/06/16 21:55 Labs: Last Result Calcium 9.9 mg/dL (8.6-10.8) 09/06/16 21:55 Iron 12 mcg/dL (50-170) L 09/06/16 21:55 % Saturation 2 % (15-50) L 09/06/16 21:55 Transferrin 419 mg/dL (180-382) H 09/06/16 21:55 Ferritin 22 ng/ml (5-204) 09/06/16 21:55 Troponin I 0.02 ng/mL (0-0.03) 09/06/16 21:55 Stool Occult Blood Positive (Negative) A 09/06/16 22:50 Entire Visit Hgb 5.7 g/dL (11.5-15.4) L* 09/06/16 21:55 Hct 20.4 % (35.3-44.9) L 09/06/16 21:55 PT 26.7 Seconds (9.4-12.1) H 09/06/16 23:06 Ferritin 22 ng/ml (5-204) 09/06/16 21:55 - ABG ABG results: PT/INR, D-dimer PT 26.7 Seconds (9.4-12.1) H 09/06/16 23:06 Consult Discharge Plan - Plan Referrals: Ward Mcmanus MD [Primary Care Provider] - 09/15/16 2:00 pm (Please follow up as schedule...) <Ed Zimmerman - Last Filed: 09/07/16 12:40> Date of Encounter: 09/07/16 - Time Spent With Patient Total time spent is greater than 50% in coordination of care (as documented) at patient's floor/unit and/or counseling patient: GI History of Present Illness - Data of Consult Requesting Physician: Kristine Mcfarland MD - Consult Narrative History of present illness: Ms. Hernández is a 65 year old female - Constitutional Vitals: Temp Pulse Resp BP Pulse Ox 98.0 F 107 12 130/73 97 09/07/16 11:32 09/07/16 11:32 09/07/16 11:32 09/07/16 11:32 09/07/16 11:32 Results - Labs CBC & Chem 7: 09/06/16 21:55 09/06/16 21:55 Labs: Last Result Calcium 9.9 mg/dL (8.6-10.8) 09/06/16 21:55 Iron 12 mcg/dL (50-170) L 09/06/16 21:55 % Saturation 2 % (15-50) L 09/06/16 21:55 Transferrin 419 mg/dL (180-382) H 09/06/16 21:55 Ferritin 22 ng/ml (5-204) 09/06/16 21:55 Troponin I 0.02 ng/mL (0-0.03) 09/06/16 21:55 Stool Occult Blood Positive (Negative) A 09/06/16 22:50 Entire Visit Hgb 5.7 g/dL (11.5-15.4) L* 09/06/16 21:55 Hct 20.4 % (35.3-44.9) L 09/06/16 21:55 PT 26.7 Seconds (9.4-12.1) H 09/06/16 23:06 Ferritin 22 ng/ml (5-204) 09/06/16 21:55 - ABG ABG results: PT/INR, D-dimer PT 26.7 Seconds (9.4-12.1) H 09/06/16 23:06 - Attending Attestation I examined this patient and my medical decision-making was reviewed with the SCHOOL OFFICE ASSISTANT/PA/Advanced Practice Nurse/Resident Physician. I agree with the documented findings, disposition and treatment plan as described except to the extent set forth below. Discussed with the patient/family, will be scheduled for EGD colonoscopy tomorrow for her anemia workup
[2016-09-07] MEDS ORDERED: SODIUM CHLORIDE/NAHCO3/KCL/PEG 4,000 ML SOLN.RECON PO ONE (12:40)
[2016-09-07] MEDS: Pantoprazole 40 MG VIAL IVP SCH ×2 (12:56→17:43)
[2016-09-07 12:59] LABS: INR 1.6; Prothrombin Time 17.9 Seconds (9.4-12.1)
[2016-09-07 13:02] LABS: Activated Partial Thrombo Time 32.1 Seconds (26.0-36.0)
[2016-09-07 13:04] LABS: Albumin 4.1 g/dL (3.5-5.0); Albumin/Globulin Ratio 1.1 (1.1-2.2); Bilirubin,Direct 0.5 mg/dL (0.0-0.5); Bilirubin,Indirect 0.7 mg/dL (0.0-1.2); Bilirubin,Total 1.2 mg/dL (0.2-1.2); Globulin 3.7 g/dL (2.4-3.5); Magnesium 1.9 mg/dL (1.6-2.6); Total Protein 7.8 g/dL (6.0-8.3)
[2016-09-07 13:26] LABS: Hemoglobin A1C 5.5 %
[2016-09-07 16:42] LABS: Hematocrit 25.3 % (35.3-44.9); Hemoglobin 7.8 g/dL (11.5-15.4)
--- NOTE | 2016-09-07 17:36 | Electrocardiograph Report ---
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
[2016-09-07] MEDS ORDERED: Pantoprazole 40 MG VIAL IVP SCH (18:00)
[2016-09-07] MEDS ORDERED: Fluconazole 100 MG TABLET PO ONE (20:26)
[2016-09-07] MEDS: Gabapentin 300 MG CAPSULE PO SCH (21:47)
[2016-09-07] MEDS: Metoprolol XL (24 HR) Succ 50 MG TAB.ER.24H PO SCH (21:48)
[2016-09-07] MEDS: Nystatin Cream 15 GM TUBE TP SCH (21:49)
[2016-09-07 23:35] LABS: Hematocrit 26.4 % (35.3-44.9); Hemoglobin 8.2 g/dL (11.5-15.4)
[2016-09-08 05:56] LABS: INR 1.6
[2016-09-08] MEDS: Pantoprazole 40 MG VIAL IVP SCH ×2 (06:26→17:33)
[2016-09-08] MEDS: Diltiazem CD (24hr) 120 MG CAPSULE PO SCH (09:00)
[2016-09-08] MEDS: Metoprolol XL (24 HR) Succ 50 MG TAB.ER.24H PO SCH ×2 (09:01→21:54)
[2016-09-08] MEDS: *HR* Digoxin 0.125 MG TABLET PO SCH (09:01)
[2016-09-08] MEDS: Aspirin Enteric Coated 81 MG Tablet PO SCH (09:01)
[2016-09-08] MEDS: Insulin LISPRO 300 UNITS/3 ML VIAL SQ SCH ×4 (09:02→22:01)
[2016-09-08] MEDS: Nystatin Cream 15 GM TUBE TP SCH ×3 (09:08→22:00)
[2016-09-08 11:07] LABS: Basophils % 0.7 %; Eosinophils # 0.1 K/mcL (0.0-0.6); Hematocrit 23.8 % (35.3-44.9); Hemoglobin 7.4 g/dL (11.5-15.4); Immature Granulocytes % 0.6 % (0-4); Immature Platelets 1.8 % (1.1-6.1); Lymphocytes # 1.7 K/mcL (0.6-4.6); Lymphocytes % 31.2 %; Mean Corpuscular HGB Conc 31.1 g/dL (31.6-35.5); Mean Corpuscular Hemoglobin 26.2 pg (28.0-33.3); Mean Corpuscular Volume 84.4 fL (83.0-100.0); Mean Platelet Volume 9.7 fL (9.4-12.4); Monocytes # 0.6 K/mcL (0.0-1.3); Monocytes % 11.8 %; Neutrophils # 2.9 K/mcL (1.6-8.9); Platelet Count 158 K/mcL (140-400); Red Blood Count 2.82 M/mcL (3.82-4.97); Red Cell Distribution Width 16.7 % (11.5-14.5); Segmented Neutrophils % 53.7 %
[2016-09-08 11:18] LABS: BUN/Creatinine Ratio 23 (6-26); Calcium 9.2 mg/dL (8.6-10.8); Carbon Dioxide 23 mEq/L (19-29); Chloride 109 mEq/L (98-109); Glucose 103 mg/dL (70-99); Osmolality,Calculated 298 (280-300); Sodium 142 mEq/L (136-145); eGFR For African Americans > 60 (> 60); eGFR For Non-African Americans 52 (> 60)
[2016-09-08 11:19] LABS: Blood Urea Nitrogen 24 mg/dL (7-20)
[2016-09-08 11:24] LABS: Hypochromasia Present (Not Present); Platelet Estimate Normal (Normal)
[2016-09-08] MEDS ORDERED: *HR* LORazepam 2 MG/ML VIAL IVP ONE (14:00)
[2016-09-08] MEDS ORDERED: *HR* Propofol 500 MG/50 ML BOTTLE IVC ONE (15:05)
[2016-09-08] MEDS ORDERED: *HR* Propofol 200 MG/20 ML VIAL IVP ONE (15:05)
--- NOTE | 2016-09-08 17:10 | Anesthesia Evaluation PreOp ---
Date of Encounter: 09/08/16 Time of Encounter: 17:08 - Past History Planned Operation: EGD/Colonoscopy Cardiac History: [place] (1992 s/p CABG), CHF (Acute on Chronic CHF this admission []), Angina, HTN (maintained on Hyzaar, Metoprolol), Hyperlipidemia ( maintained on Atorvastatin), Arrhythmia (AFib/Flutter w/RVR maintained on Digoxin, anticoagulated on Coumadin re: intramural thrombus), Cardiac Surgery ( CABG 1992), Other (LVEF 45-50%) Pulmonary History: Former smoker, Smoker (>90pk-yrs), Asthma, COPD (Home O2) [employer]CH[employer]M History: Other (Anxiety/Depression maintained on Celexa. Chronic pain tx w / Gabapentin) Other Medical History: Renal (FRAN/Acute on Chronic CRF), Diabetes Type II ( maintained on Metformin), GERD (Acute GIB), Other (Hx of Breast CA s/p surgery. Obesity.) Anesthesia History: No Prior Anesthetic Complications, Past Anesthesia (Appy, CABG, Breast surgery) Alcohol Use: none Drug use: none Medications and Allergies Cholecalciferol (D-3) [Vitamin D] 2,000 unit PO DAILY 04/18/16 [History] Diphenoxylate/Atropine [Lomotil 2.5 mg/0.025 mg] 1 tab PO BID PRN 04/18/16 [ History] Gabapentin [Neurontin] 900 mg PO HS 04/18/16 [History] Losartan/Hydrochlorothiazide [Hyzaar 100-12.5 Tablet] 1 tab PO DAILY 04/18/16 [ History] Metformin HCl [Metformin HCl ER] 500 mg PO BID 04/18/16 [History] Aspirin Enteric Coated [Aspirin EC] 81 mg PO DAILY #30 tablet. 06/14/16 [Rx] Atorvastatin [Lipitor] 10 mg PO HS #30 tablet 06/14/16 [Rx] Digoxin [Lanoxin] 0.125 mg PO DAILY #30 tablet 06/14/16 [Rx] Citalopram Hydrobromide [Celexa] 30 mg PO DAILY 07/23/16 [History] Metoprolol Succinate 200 mg PO BID 07/23/16 [History] Warfarin [Coumadin] 2 mg PO THSA 07/23/16 [History] Warfarin [Coumadin] 4 mg PO SUMOTUWEFR 07/23/16 [History] Diltiazem CD (24hr) [Cardizem CD] 120 mg PO DAILY #30 cap.er.24h 07/26/16 [Rx] Allergies No Known Allergies Allergy (Verified 06/12/16 09:27) - Meds/Allergy Pre-op Review Medications Reviewed: Yes Allergies Reviewed: Yes Beta Blockers on Current Med List: Yes (Metoprolol) If Beta Blockers taken, Date/Time (Last Dose taken): 09/08/2016 @ 0901 Anesthesia Results - Labs 09/08/16 10:54 09/08/16 10:54 Laboratory Tests 09/06/16 09/06/16 09/07/16 21:55 22:50 12:38 PT INR APTT Est GFR (Non-Af Amer) POC Glucose Est Mean Plasma Glucose 111 Hemoglobin A1c 5.5 B-Natriuretic Peptide 1230 H Stool Occult Blood Positive A 09/08/16 09/08/16 09/08/16 04:40 07:41 10:54 PT 17.0 H INR 1.6 APTT 34.0 Est GFR (Non-Af Amer) 52 L POC Glucose 117 H Est Mean Plasma Glucose Hemoglobin A1c B-Natriuretic Peptide Stool Occult Blood Anesthesia Exam Vital Signs Temp Pulse Resp BP Pulse Ox 09/08/16 16:03 97.4 F L 109 16 120/81 96 09/08/16 11:37 97.2 F L 111 16 128/82 09/08/16 07:35 97.5 F L 112 20 120/75 98 09/08/16 05:28 98.0 F 111 18 127/79 96 09/08/16 02:04 97.7 F 114 18 124/81 90 09/07/16 21:06 97.5 F L 115 18 161/99 100 Intake and Output 09/08/16 09/08/16 09/08/16 07:59 15:59 23:59 Intake Total 120 / 120 Output Total 0 / 0 Balance 120 / 120 Intake: Oral 120 / 120 Output: Urine 0 / 0 Other: Weight 95.99 kg Blood Glucose* 117 Patient Weight 09/08/16 23:59 Weight 95.99 kg Height: 5'1" Weight: 211# BMI = 35 NPO (# of Hours): MNoc - HEENT Pupil (Motor): Pupils equal, EOMI Mallampati: III Teeth: Missing, Poor dentition Oral Opening: Greater than 3 - [employer] LOC: Oriented [employer] Motor: Normal RUE, Normal LUE, Normal RLE, Normal LLE, Normal Face [employer] Sensory: Normal: RUE, LUE, RLE, LLE, Face - Cardiac Rhythm: Regular Murmur: Systolic JVD: No - Pulmonary Breath Sounds: bilateral Clear Respiratory Effort: Symmetrical Anesthesia Assess/Plan ASA Score: 4 (Acute on Chronic CHF, AFib/Flutter w/RVR, Intramural heart thrombus, DM, Obesity, CAD, Anxiety/Depression, Chronic Pain, COPD, Anemia/GIB) Modified [place] Scale for Level of Consciousness: Cooperative, oriented, and tranquil Anesthetic Plan: MAC Monitoring Plan: Standard Monitors Recovery Plan: Other Anes Supervising Prov Stmt: Pt seen/evaluated, R&B discussed, questions answered and consent obtained. Charlotte Barriga MD
--- NOTE | 2016-09-08 17:43 | Internal Med Progress Note ---
Date of Encounter: 09/07/16 Time of Encounter: 14:00 - Assessment and plan (1) Anemia Current Visit: Yes Status: Acute Assessment and plan: Patient has been referred for admission due to abnormal labs with hemoglobin of 5.7. No evidence of overt bleeding noted but suspected upper GI bleed and melena. Fecal occult blood test is positive. Patient received 2 units of PRBC with improvement in hemoglobin to more than 8. GI has been consulted and planned to perform EGD and colonoscopy tomorrow to evaluate for source of GI bleeding. Patient is noted to be on anticoagulation with Coumadin for cardiac thrombus, which is held at this time due to possible GI bleed. Qualifiers: Anemia type: unspecified type Qualified Code(s): D64.9 - Anemia, unspecified (2) Chronic kidney disease Current Visit: Yes Status: Chronic Qualifiers: Chronic kidney disease stage: stage 3 (moderate) Qualified Code(s): N18.3 - Chronic kidney disease, stage 3 (moderate) (3) Hypertension Current Visit: Yes Status: Chronic Assessment and plan: Blood pressure noted to be well controlled but patient continues to be mildly tachycardic. Resume home medications including beta marva, calcium channel marva. Qualifiers: Hypertension type: essential hypertension Qualified Code(s): I10 - Essential (primary) hypertension (4) Diabetes mellitus Current Visit: Yes Status: Chronic Assessment and plan: Continue Accu-Chek blood glucose monitoring with sliding scale insulin as needed. Qualifiers: Diabetes mellitus type: type 2 Diabetes mellitus complication status: with unspecified complications Diabetes mellitus penitentiary insulin use: without termite exterminator helper use Qualified Code(s): E11.8 - Type 2 diabetes mellitus with unspecified complications (5) CAD (coronary artery disease) Current Visit: Yes Status: Chronic Qualifiers: Coronary Disease-Associated Artery/Lesion type: bypass graft [place] vs. transplanted heart: [place] heart Associated angina: without angina Qualified Code(s): I25.810 - Atherosclerosis of coronary artery bypass graft(s) without angina pectoris (6) Afib Current Visit: Yes Status: Chronic Assessment and plan: Continue rate control medications. We will hold Coumadin at this time. Qualifiers: Atrial fibrillation type: paroxysmal Qualified Code(s): I48.0 - Paroxysmal atrial fibrillation (7) CHF (congestive heart failure) Current Visit: Yes Status: Chronic Assessment and plan: Not in acute exacerbation. Continue home medications. Qualifiers: Congestive heart failure type: systolic Congestive heart failure chronicity : chronic Qualified Code(s): I50.22 - Chronic systolic (congestive) heart failure (8) Mural thrombus of heart Current Visit: Yes Status: Chronic - Subjective Interval history: Reports no observed hematochezia, hematemesis or epigastric pain. Does report intermittent dark stools. Able to tolerate oral diet. Plan of care discussed with patient's daughter at bedside. - Constitutional Vitals: Temp Pulse Resp BP Pulse Ox 97.4 F L 109 16 120/81 96 09/08/16 16:03 09/08/16 16:03 09/08/16 16:03 09/08/16 16:03 09/08/16 16:03 General appearance: Present: cooperative, A&O X 3, obese, answers questions appropriately - Respiratory Respiratory exam: Present: CTAB. Absent: accessory muscle use, rales, rhonchi, wheezes - Cardiovascular Cardiovascular exam: Present: irregular rhythm, +S1, +S2, tachycardia. Absent: diastolic murmur, gallop, rubs, systolic murmur - GI/Abdominal GI/Abdominal exam: Present: normal bowel sounds, soft, no peritoneal signs. Absent: distended, tenderness - Extremities Exam Extremities exam: Present: full ROM, pedal edema (1+ pitting pedal edema bilaterally), warm, radial pulses palpable and symetrical. Absent: calf tenderness, cyanotic - Neurological Exam Neurological exam: Present: CN II-XII intact, oriented X3, no focal deficits. Absent: pronater drift, facial droop, speech deficit Internal Medicine: Result - Labs CBC & Chem 7: 09/08/16 10:54 09/08/16 10:54 Labs: Short CBC 09/07/16 09/08/16 Range/Units 22:49 10:54 WBC 5.4 (4.3-11.1) K/mcL Hgb 8.2 L 7.4 L (11.5-15.4) g/dL Hct 26.4 L 23.8 L (35.3-44.9) % Plt Count 158 (140-400) K/mcL Neutrophils # 2.9 (1.6-8.9) K/mcL BMP 09/08/16 10:54 Sodium 142 Potassium 4.0 Chloride 109 Carbon Dioxide 23 BUN 24 H D Creatinine 1.05 Glucose 103 H Calcium 9.2 - ABG Interpretation ABG results: PT/INR, D-dimer PT 17.0 Seconds (9.4-12.1) H 09/08/16 04:40 Consult Discharge Plan - Plan Referrals: Ward Mcmanus MD [Primary Care Provider] - 09/15/16 2:00 pm (Please follow up as schedule...)
[2016-09-08] MEDS ORDERED: 0.9 % Sodium Chloride 500 ML ONE (18:14)
[2016-09-08] MEDS ORDERED: *HR* Heparin 5,000 UNIT/ML VIAL IVP PRN ×2 (18:23)
[2016-09-08] MEDS ORDERED: *HR* Heparin 5,000 UNIT/ML VIAL IVP ONE (18:23)
[2016-09-08] MEDS: Gabapentin 300 MG CAPSULE PO SCH (21:55)
[2016-09-09 00:13] LABS: Hematocrit 27.9 % (35.3-44.9); Hemoglobin 8.6 g/dL (11.5-15.4); Immature Platelets 2.7 % (1.1-6.1); Mean Corpuscular HGB Conc 30.8 g/dL (31.6-35.5); Mean Corpuscular Hemoglobin 25.5 pg (28.0-33.3); Mean Corpuscular Volume 82.8 fL (83.0-100.0); Mean Platelet Volume 9.9 fL (9.4-12.4); Red Blood Count 3.37 M/mcL (3.82-4.97); Red Cell Distribution Width 17.2 % (11.5-14.5)
[2016-09-09 00:15] LABS: INR 1.5; Prothrombin Time 15.8 Seconds (9.4-12.1)
[2016-09-09 00:18] LABS: Activated Partial Thrombo Time 26.7 Seconds (26.0-36.0)
[2016-09-09] MEDS: Heparin 25,000 UNIT/500 ML D5W 25,000 UNIT/500 ML MLS IVC SCH ×2 (00:30→22:00)
[2016-09-09 06:29] LABS: INR 1.5; Prothrombin Time 16.6 Seconds (9.4-12.1)
[2016-09-09 06:33] LABS: Basophils % 0.5 %; Eosinophils # 0.2 K/mcL (0.0-0.6); Eosinophils % 2.4 %; Immature Granulocytes % 0.3 % (0-4); Lymphocytes # 1.9 K/mcL (0.6-4.6); Lymphocytes % 29.1 %; Mean Corpuscular HGB Conc 30.8 g/dL (31.6-35.5); Mean Corpuscular Hemoglobin 25.7 pg (28.0-33.3); Mean Corpuscular Volume 83.6 fL (83.0-100.0); Mean Platelet Volume 10.3 fL (9.4-12.4); Monocytes # 0.7 K/mcL (0.0-1.3); Monocytes % 10.7 %; Neutrophils # 3.8 K/mcL (1.6-8.9); Platelet Count 144 K/mcL (140-400); Red Blood Count 3.11 M/mcL (3.82-4.97); Red Cell Distribution Width 17.6 % (11.5-14.5)
[2016-09-09 06:34] LABS: Activated Partial Thrombo Time 89.1 Seconds (26.0-36.0)
[2016-09-09] MEDS: Pantoprazole 40 MG VIAL IVP SCH ×2 (06:35→17:18)
[2016-09-09] MEDS: Insulin LISPRO 300 UNITS/3 ML VIAL SQ SCH ×4 (08:24→22:00)
[2016-09-09] MEDS: Metoprolol XL (24 HR) Succ 50 MG TAB.ER.24H PO SCH ×2 (08:30→21:16)
[2016-09-09] MEDS: Nystatin Cream 15 GM TUBE TP SCH ×3 (08:30→21:45)
[2016-09-09] MEDS: *HR* Digoxin 0.125 MG TABLET PO SCH (08:30)
[2016-09-09] MEDS: Aspirin Enteric Coated 81 MG Tablet PO SCH (08:30)
[2016-09-09] MEDS: Diltiazem CD (24hr) 120 MG CAPSULE PO SCH (08:30)
[2016-09-09 13:37] LABS: Activated Partial Thrombo Time 123.9 Seconds (26.0-36.0)
[2016-09-09 13:38] LABS: Heparin anti-factor XA UFH 0.65 IU/mL (0.30-0.70)
--- NOTE | 2016-09-09 17:47 | Internal Med Progress Note ---
Date of Encounter: 09/08/16 Time of Encounter: 12:30 - Assessment and plan (1) Anemia Current Visit: Yes Status: Acute Assessment and plan: Patient has been referred for admission due to abnormal labs with hemoglobin of 5.7. No evidence of overt bleeding noted but suspected upper GI bleed and melena. Fecal occult blood test is positive. Patient received 2 units of PRBC but noted to have further anemia today, will transfuse 1unit PRBC. GI has been consulted, plan for EGD and colonoscopy today; will f/up reports and resume anticoagulation for cardiac thrombus and a.fib, if no active bleeding is noted; Qualifiers: Anemia type: unspecified type Qualified Code(s): D64.9 - Anemia, unspecified (2) Chronic kidney disease Current Visit: Yes Status: Chronic Assessment and plan: serum creatinine noted to be at baseline; continue to monitor; Qualifiers: Chronic kidney disease stage: stage 3 (moderate) Qualified Code(s): N18.3 - Chronic kidney disease, stage 3 (moderate) (3) Hypertension Current Visit: Yes Status: Chronic Assessment and plan: BP well-controlled; continue home meds; Qualifiers: Hypertension type: essential hypertension Qualified Code(s): I10 - Essential (primary) hypertension (4) Diabetes mellitus Current Visit: Yes Status: Chronic Assessment and plan: Continue Accu-Chek blood glucose monitoring with sliding scale insulin as needed. Qualifiers: Diabetes mellitus type: type 2 Diabetes mellitus complication status: with unspecified complications Diabetes mellitus parts counterman insulin use: without halfway use Qualified Code(s): E11.8 - Type 2 diabetes mellitus with unspecified complications (5) CAD (coronary artery disease) Current Visit: Yes Status: Chronic Qualifiers: Coronary Disease-Associated Artery/Lesion type: bypass graft [place] vs. transplanted heart: [place] heart Associated angina: without angina Qualified Code(s): I25.810 - Atherosclerosis of coronary artery bypass graft(s) without angina pectoris (6) Afib Current Visit: Yes Status: Chronic Assessment and plan: Continue rate control medications. Patient seems to be having difficult to control tachycardia as outpatient, and per daughter, is being managed by on high doses of beta-marva and CCB; We will hold Coumadin until after EGD/Colonoscopy; Qualifiers: Atrial fibrillation type: paroxysmal Qualified Code(s): I48.0 - Paroxysmal atrial fibrillation (7) CHF (congestive heart failure) Current Visit: Yes Status: Chronic Assessment and plan: Not in acute exacerbation. Continue home medications. Qualifiers: Congestive heart failure type: systolic Congestive heart failure chronicity : chronic Qualified Code(s): I50.22 - Chronic systolic (congestive) heart failure (8) Mural thrombus of heart Current Visit: Yes Status: Chronic - Subjective Interval history: Noted to be very anxious today due to scheduled EGD/Colonoscopy due to having aspiration Pneumonia and complications from previous colonoscopy; no further melena/hematochezia, vomiting or abdominal pain; - Constitutional Vitals: Temp Pulse Resp BP Pulse Ox 98.2 F 83 17 131/85 90 09/09/16 15:00 09/09/16 15:00 09/09/16 15:00 09/09/16 15:00 09/09/16 15:00 General appearance: Present: cooperative, mild distress, A&O X 3, obese, answers questions appropriately - Respiratory Respiratory exam: Present: CTAB. Absent: accessory muscle use, rales, rhonchi, wheezes - Cardiovascular Cardiovascular exam: Present: irregular rhythm, +S1, +S2. Absent: diastolic murmur, gallop, rubs, systolic murmur - GI/Abdominal GI/Abdominal exam: Present: normal bowel sounds, soft (obese), no peritoneal signs. Absent: distended, tenderness - Extremities Exam Extremities exam: Present: full ROM, pedal edema, warm, radial pulses palpable and symetrical. Absent: calf tenderness, cyanotic - Neurological Exam Neurological exam: Present: CN II-XII intact, oriented X3, no focal deficits. Absent: pronater drift, facial droop, speech deficit Internal Medicine: Result - Labs CBC & Chem 7: 09/09/16 06:00 09/08/16 10:54 Labs: Short CBC 09/08/16 09/09/16 Range/Units 23:57 06:00 WBC 7.9 6.6 (4.3-11.1) K/mcL Hgb 8.6 L 8.0 L (11.5-15.4) g/dL Hct 27.9 L 26.0 L (35.3-44.9) % Plt Count 163 144 (140-400) K/mcL Neutrophils # 3.8 (1.6-8.9) K/mcL - ABG Interpretation ABG results: PT/INR, D-dimer PT 16.6 Seconds (9.4-12.1) H 09/09/16 06:00 Consult Discharge Plan - Plan Referrals: Ward Mcmanus MD [Primary Care Provider] - 09/15/16 2:00 pm (Please follow up as schedule...)
[2016-09-09] MEDS ORDERED: *HR* Warfarin 5 MG TABLET PO SCH (18:00)
[2016-09-09] MEDS ORDERED: Warfarin perPT PO PRN (18:00)
[2016-09-09] MEDS: Gabapentin 300 MG CAPSULE PO SCH (21:15)
[2016-09-09 22:52] LABS: Bilirubin,Urine Negative (Negative); Blood,Urine Negative (Negative); Clarity,Urine Cloudy (Clear); Color,Urine Yellow (Yellow); Glucose,Urine (UA) Normal (Normal); Ketones,Urine Negative (Negative); Leukocyte Esterase,Urine Moderate (Negative); Nitrite,Urine Negative (Negative); PH,Urine 5.5 pH Units (5.0-8.0); Protein,Urine 100 mg/dL (Neg-Trace); Specific Gravity,Urine 1.021 (1.010-1.025); Urobilinogen,Urine Normal (Normal)
[2016-09-09 22:54] LABS: Bacteria,Urine Moderate per hpf (None-Few); Hyaline Casts,Urine None Seen per lpf (None-Few); RBC,Urine 0-3 per hpf (0-3); Squamous Epithelial Cell,Urine Many per lpf (None-Few); WBC,Urine 50-100 per hpf (0-3)
[2016-09-10 04:37] LABS: Basophils % 0.4 %; Eosinophils # 0.2 K/mcL (0.0-0.6); Eosinophils % 2.3 %; Hematocrit 26.1 % (35.3-44.9); Hemoglobin 7.9 g/dL (11.5-15.4); Immature Granulocytes % 0.6 % (0-4); Lymphocytes # 2.3 K/mcL (0.6-4.6); Lymphocytes % 33.4 %; Mean Corpuscular HGB Conc 30.3 g/dL (31.6-35.5); Mean Corpuscular Volume 82.6 fL (83.0-100.0); Mean Platelet Volume 10.3 fL (9.4-12.4); Monocytes # 0.9 K/mcL (0.0-1.3); Monocytes % 12.6 %; Neutrophils # 3.6 K/mcL (1.6-8.9); Platelet Count 141 K/mcL (140-400); Red Blood Count 3.16 M/mcL (3.82-4.97); Red Cell Distribution Width 17.6 % (11.5-14.5); Segmented Neutrophils % 50.7 %
[2016-09-10 04:48] LABS: INR 1.5; Prothrombin Time 16.1 Seconds (9.4-12.1)
[2016-09-10 05:00] LABS: Activated Partial Thrombo Time 43.6 Seconds (26.0-36.0)
[2016-09-10] MEDS: Pantoprazole 40 MG VIAL IVP SCH (06:35)
[2016-09-10] MEDS: *HR* Digoxin 0.125 MG TABLET PO SCH (08:34)
[2016-09-10] MEDS: Aspirin Enteric Coated 81 MG Tablet PO SCH (08:34)
[2016-09-10] MEDS: Diltiazem CD (24hr) 120 MG CAPSULE PO SCH (08:34)
[2016-09-10] MEDS: Metoprolol XL (24 HR) Succ 50 MG TAB.ER.24H PO SCH (08:34)
[2016-09-10] MEDS: Insulin LISPRO 300 UNITS/3 ML VIAL SQ SCH ×2 (08:36→12:01)
[2016-09-10] MEDS: Nystatin Cream 15 GM TUBE TP SCH ×2 (08:37→16:20)
--- NOTE | 2016-09-10 16:05 | Discharge Summary ---
Date of Encounter: 09/10/16 Time of Encounter: 13:00 - Discharge Diagnosis (1) Anemia Priority: Primary Status: Acute Qualifiers: Anemia type: other cause Other causes of anemia: acute posthemorrhagic Qualified Code(s): D62 - Acute posthemorrhagic anemia (2) Chronic kidney disease Priority: Secondary Status: Chronic Qualifiers: Chronic kidney disease stage: stage 3 (moderate) Qualified Code(s): N18.3 - Chronic kidney disease, stage 3 (moderate) (3) Hypertension Priority: Secondary Status: Chronic Qualifiers: Hypertension type: essential hypertension Qualified Code(s): I10 - Essential (primary) hypertension (4) Diabetes mellitus Priority: Secondary Status: Chronic Qualifiers: Diabetes mellitus type: type 2 Diabetes mellitus complication status: with unspecified complications Diabetes mellitus termination clerk insulin use: without termination clerk use Qualified Code(s): E11.8 - Type 2 diabetes mellitus with unspecified complications (5) CAD (coronary artery disease) Priority: Secondary Status: Chronic Qualifiers: Coronary Disease-Associated Artery/Lesion type: bypass graft [place] vs. transplanted heart: [place] heart Associated angina: without angina Qualified Code(s): I25.810 - Atherosclerosis of coronary artery bypass graft(s) without angina pectoris (6) Afib Priority: Secondary Status: Chronic Qualifiers: Atrial fibrillation type: paroxysmal Qualified Code(s): I48.0 - Paroxysmal atrial fibrillation (7) CHF (congestive heart failure) Priority: Secondary Status: Chronic Qualifiers: Congestive heart failure type: systolic Congestive heart failure chronicity : chronic Qualified Code(s): I50.22 - Chronic systolic (congestive) heart failure (8) Mural thrombus of heart Priority: Secondary Status: Chronic - Discharge Medications Prescriptions: Enoxaparin [Lovenox] 100 mg SQ Q12HR #14 syr Ferrous Sulfate 325 mg PO BIDWM #30 tablet Home Medications: Cholecalciferol (D-3) [Vitamin D] 2,000 unit PO DAILY 04/18/16 [History] Diphenoxylate/Atropine [Lomotil 2.5 mg/0.025 mg] 1 tab PO BID PRN 04/18/16 [ History] Gabapentin [Neurontin] 900 mg PO HS 04/18/16 [History] Losartan/Hydrochlorothiazide [Hyzaar 100-12.5 Tablet] 1 tab PO DAILY 11/13/16 [ History] Metformin HCl [Metformin HCl ER] 500 mg PO BID 04/18/16 [History] Aspirin Enteric Coated [Aspirin EC] 81 mg PO DAILY #30 tablet.dr 06/14/16 [Rx] Atorvastatin [Lipitor] 10 mg PO HS #30 tablet 06/14/16 [Rx] Digoxin [Lanoxin] 0.125 mg PO DAILY #30 tablet 06/14/16 [Rx] Citalopram Hydrobromide [Celexa] 30 mg PO DAILY 07/23/16 [History] Metoprolol Succinate 200 mg PO BID 07/23/16 [History] Warfarin [Coumadin] 2 mg PO THSA 07/23/16 [History] Warfarin [Coumadin] 4 mg PO SUMOTUWEFR 07/23/16 [History] Diltiazem CD (24hr) [Cardizem CD] 120 mg PO DAILY #30 cap.er.24h 07/26/16 [Rx] Enoxaparin [Lovenox] 100 mg SQ Q12HR #14 syr 09/10/16 [Rx] Ferrous Sulfate 325 mg PO BIDWM #30 tablet 09/10/16 [Rx] Allergies/Adverse Reactions: Allergies No Known Allergies Allergy (Verified 06/12/16 09:27) Date of admission: 09/07/16 16:24 Primary care physician: Ward Mcmanus MD Discharging clinician: Kristine Mcfarland Anticipated date of discharge: 09/10/16 - Patient Status Disposition: Home, Self-Care Condition: Fair Functional capacity at discharge: independent ambulation Overall status at discharge: patient is progressing back to baseline - Discharge Instructions Instructions: Heart Failure (DC), Atrial Fibrillation (DC) Follow Up With: Ward Mcmanus MD [Primary Care Provider] - 09/15/16 2:00 pm (Please follow up as schedule...) Additional Instructions: F/up with Cardiology as scheduled - Diet and Activity Activity: resume usual activities as tolerated, wear oxygen at all times Diet: diabetic diet, low fat, low cholesterol, low salt diet Hospital course: Ms. Hernández is a 65 year old female with the above medical problems, admitted due to abnormal labs with Hb 5.7. She was symptomatic with exertional dyspnea and fatigue and reportedly had some melanotic stools but no other overt signs of GI bleeding. She received multiple units of PRBC with improvement in Hb. She was noted to be on anticoagulation with Coumadin for a.fib and recently diagnosed cardiac thrombus. SHe received FFP and Coumadin was held. GI was consulted and patient underwent EGD that showed no bleeding and Colonoscopy that showed 2 sessile non-bleeding polyps that were removed. Hb remained stable after the procedures and she was restarted on IV Heparin drip along with ora Coumadin and tolerated well. SHe is now medically stable for discharge. - Time Spent with Patient Total time spent providing and/or coordinating discharge services: Greater than 30 minutes (45 min) - Constitutional Vitals: Temp Pulse Resp BP Pulse Ox 98.6 F 115 17 118/76 94 09/10/16 11:21 09/10/16 11:21 09/10/16 11:21 09/10/16 11:21 09/10/16 11:21 General appearance: Present: A&O X 3, answers questions appropriately - Respiratory Respiratory exam: Present: CTAB. Absent: accessory muscle use, rales, rhonchi, wheezes - Cardiovascular Cardiovascular exam: Present: irregular rhythm, +S1, +S2. Absent: diastolic murmur, gallop, rubs, systolic murmur - Extremities Exam Extremities exam: Present: pedal edema, warm, radial pulses palpable and symetrical. Absent: calf tenderness, cyanotic
[2016-09-10 16:06] VITALS: BP 139/72
--- NOTE | 2016-09-12 17:19 | Internal Med Progress Note ---
Date of Encounter: 09/09/16 Time of Encounter: 12:30 - Assessment and plan (1) Anemia Status: Acute Assessment and plan: Patient is noted to have stable hemoglobin. Received 3 units of PRBC during this hospitalization for acute blood loss anemia, possibly from GI bleed. GI has been consulted and patient underwent EGD and colonoscopy. EGD showed mild gastropathy with no active focus of bleeding. Colonoscopy showed 2 nonbleeding polyps that were removed. Qualifiers: Anemia type: other cause Other causes of anemia: acute posthemorrhagic Qualified Code(s): D62 - Acute posthemorrhagic anemia (2) Chronic kidney disease Status: Chronic Assessment and plan: serum creatinine noted to be at baseline; continue to monitor; Qualifiers: Chronic kidney disease stage: stage 3 (moderate) Qualified Code(s): N18.3 - Chronic kidney disease, stage 3 (moderate) (3) Hypertension Status: Chronic Qualifiers: Hypertension type: essential hypertension Qualified Code(s): I10 - Essential (primary) hypertension (4) Diabetes mellitus Status: Chronic Assessment and plan: Continue Accu-Chek blood glucose monitoring with sliding scale insulin as needed. Qualifiers: Diabetes mellitus type: type 2 Diabetes mellitus complication status: with unspecified complications Diabetes mellitus terminologist insulin use: without halfway use Qualified Code(s): E11.8 - Type 2 diabetes mellitus with unspecified complications (5) CAD (coronary artery disease) Status: Chronic Qualifiers: Coronary Disease-Associated Artery/Lesion type: bypass graft [place] vs. transplanted heart: [place] heart Associated angina: without angina Qualified Code(s): I25.810 - Atherosclerosis of coronary artery bypass graft(s) without angina pectoris (6) Afib Status: Chronic Assessment and plan: Continue rate control medications. Patient continues to have mild baseline tachycardia. Has been restarted on IV heparin drip along with oral Coumadin. Continue to monitor PT/INR. Qualifiers: Atrial fibrillation type: paroxysmal Qualified Code(s): I48.0 - Paroxysmal atrial fibrillation (7) CHF (congestive heart failure) Status: Chronic Assessment and plan: Not in acute exacerbation. Continue home medications. Qualifiers: Congestive heart failure type: systolic Congestive heart failure chronicity : chronic Qualified Code(s): I50.22 - Chronic systolic (congestive) heart failure (8) Mural thrombus of heart Status: Chronic Assessment and plan: Anticoagulation as mentioned above. - Subjective Interval history: Reports feeling much better and wants to be discharged home soon. Reports no abdominal pain, vomiting, diarrhea. Underwent EGD and colonoscopy yesterday which showed no active bleeding. Able to tolerate oral diet now. - Constitutional Vitals: Temp Pulse Resp BP Pulse Ox 98.0 F 104 20 139/72 95 09/10/16 15:58 09/10/16 15:58 09/10/16 15:58 09/10/16 15:58 09/10/16 15:58 General appearance: Present: A&O X 3, answers questions appropriately - Respiratory Respiratory exam: Present: CTAB. Absent: accessory muscle use, rales, rhonchi, wheezes - Cardiovascular Cardiovascular exam: Present: irregular rhythm, +S1, +S2. Absent: diastolic murmur, gallop, rubs, systolic murmur - GI/Abdominal GI/Abdominal exam: Present: normal bowel sounds, soft, no peritoneal signs. Absent: distended, tenderness - Extremities Exam Extremities exam: Present: pedal edema, warm, radial pulses palpable and symetrical. Absent: calf tenderness, cyanotic Internal Medicine: Result - Labs CBC & Chem 7: 09/10/16 03:38 09/08/16 10:54 - ABG Interpretation ABG results: PT/INR, D-dimer PT 16.1 Seconds (9.4-12.1) H 09/10/16 03:38 Consult Discharge Plan - Plan Instructions: Heart Failure (DC), Atrial Fibrillation (DC) Additional Instructions: F/up with Cardiology as scheduled Referrals: Ward Mcmanus MD [Primary Care Provider] - 09/15/16 2:00 pm (Please follow up as schedule...) Prescriptions: Enoxaparin [Lovenox] 100 mg SQ Q12HR #14 syr Ferrous Sulfate 325 mg PO BIDWM #30 tablet
== END 2016-09-10 17:54 | disposition home or self-care (01) | DRG 377 ==
LOC: EMEROO 20:07 → 2ANU 20:07 → SUATTDRO 09-07 00:02 → 2ANU 09-07 01:19
PROVIDERS: ADMIT Internal Medicine; ATTEND Internal Medicine
PROC: ENDOEBX (2016-09-08 13:00)

== ENCOUNTER 2016-09-27 12:16 | Inpatient (IN) ==
--- NOTE | 2016-09-27 12:47 | Emergency Department Note ---
Disposition Clinical Impression: Elevated troponin, Pleural effusion Anemia Qualifiers: Anemia type: unspecified type Qualified Code(s): D64.9 - Anemia, unspecified Hypotension Qualifiers: Hypotension type: unspecified hypotension type Qualified Code(s): I95.9 - Hypotension, unspecified Acute kidney failure Qualifiers: Acute renal failure type: unspecified Qualified Code(s): N17.9 - Acute kidney failure, unspecified GI bleed Qualifiers: GI bleed type/associated pathology: unspecified gastrointestinal hemorrhage type Qualified Code(s): K92.2 - Gastrointestinal hemorrhage, unspecified Disposition: Admitted As Inpatient Condition: Good Referrals: Ward Mcmanus MD [Primary Care Provider] - Forms: ED Satisfaction Letter Time of Disposition: 16:15 Chest Pain HPI - General Chief Complaint: ED Dizziness Stated Complaint: N/V dizzy Chest pain Time Seen by Provider: 09/27/16 12:46 Source: patient, family Mode of arrival: ambulatory Limitations: no limitations Vital Signs Reviewed: Yes Nursing Notes Reviewed: Yes - History of Present Illness HPI Narrative: Patient is a 65-year-old female with past history of A. fib, CHF, GI bleed, anemia. I saw this patient a few weeks ago and admitted her for anemia with a hemoglobin of 5.7. She will be transfused with 3 units of blood, 2 units of fresh frozen plasma due to an elevated INR. During that stay, the patient had an EGD and colonoscopy. EGD was negative, colonoscopy showed 2 polyps but otherwise no significant findings of bleeding. Today, she presents due to multiple complaints. She has been having nausea and vomiting for the past 3-4 days, she is avulsed also had intermittent chest pain in the center her chest that radiates up into her throat, mild shortness of breath, feelings of lightheadedness and dizziness. She stood up today at home and fell and hit her head on the doorway. She denies loss of consciousness. She also fell onto her left hip and has left hip pain. She also had episode of bright red blood per rectum prior to arrival. Denies any numbness, tingling. She admits to generalized weakness. Patient says that she was started back on Coumadin after her previous hospital stay. Severity scale (1-10): 10 - Related Data Home Medications Medication Instructions Recorded Confirmed Cholecalciferol (D-3) [Vitamin D] 2,000 unit PO DAILY 11/13/16 04/24/17 Diphenoxylate/Atropine [Lomotil 1 tab PO BID PRN 04/18/16 09/27/16 2.5 mg/0.025 mg] Gabapentin [Neurontin] 900 mg PO HS 04/18/16 09/27/16 Losartan/Hydrochlorothiazide 1 tab PO DAILY 04/18/16 09/27/16 [Hyzaar 100-12.5 Tablet] Metformin HCl [Metformin HCl ER] 500 mg PO BID 04/18/16 09/27/16 Citalopram Hydrobromide [Celexa] 30 mg PO DAILY 07/23/16 09/27/16 Metoprolol Succinate 200 mg PO BID 07/23/16 09/27/16 Warfarin [Coumadin] 2 mg PO SUFR 07/23/16 09/27/16 Warfarin [Coumadin] 4 mg PO MOTUWETHSA 07/23/16 09/27/16 Albuterol Sulfate [Albuterol 2 puff IH Q4H PRN 09/27/16 09/27/16 Inhaler] Amoxicillin [Amoxil] 500 mg PO QID 09/27/16 09/27/16 Atorvastatin Calcium [Lipitor] 20 mg PO HS 09/27/16 09/27/16 Clarithromycin [Biaxin] 500 mg PO BID 09/27/16 09/27/16 Fluticasone/Salmeterol [Advair Hfa 2 puff IH BID 09/27/16 230-21 Mcg Inhaler] Pantoprazole Sodium [Protonix] 40 mg PO BID 09/27/16 09/27/16 Previous Rx's Medication Instructions Recorded Aspirin Enteric Coated [Aspirin EC] 81 mg PO DAILY #30 tablet. 06/14/16 Digoxin [Lanoxin] 0.125 mg PO DAILY #30 tablet 06/14/16 Diltiazem CD (24hr) [Cardizem CD] 120 mg PO DAILY #30 cap.er.24h 07/26/16 Ferrous Sulfate 325 mg PO BIDWM #30 tablet 09/10/16 Allergies Allergy/AdvReac Type Severity Reaction Status Date / Time No Known Allergies Allergy Verified 06/12/16 09:27 All systems ED: reviewed and negative except as stated. Constitutional: Denies: fever Cardiovascular: Reports: chest pain, dyspnea on exertion. Denies: palpitations Respiratory: Reports: dyspnea. Denies: cough, wheezes Gastrointestinal: Reports: abdominal pain, nausea, vomiting Genitourinary: Denies: urgency, dysuria, frequency, hematuria, discharge Musculoskeletal: Reports: arthralgia. Denies: back pain Integumentary: Denies: rash Neurological: Reports: weakness (Generalized). Denies: headache, numbness, paresthesias Psychiatric: Denies: anxiety Endocrine: Denies: fatigue Chest Pain PMH - Past Medical History Medical history: Reports: asthma, cancer, CHF, diabetes, GI bleed, hyperlipidemia, hypertension Surgical history: Reports: appendectomy, breast surgery, coronary bypass (CABG) Psychiatric history: Reports: anxiety - Social History Smoking Status: Former smoker Alcohol use: Reports: none Drug use: Reports: none Physical Exam - General Limitations: no limitations General appearance: alert - Head Head exam: atraumatic, normocephalic, normal inspection - Eye Eye exam: Present: normal appearance, PERRL, EOMI - ENT ENT exam: normal exam, normal oropharynx, mucous membranes moist - Neck Neck exam: Present: normal inspection, full ROM, trachea midline. Absent: tenderness - Chest Chest inspection: Present: normal inspection, symmetric chest wall rise - Respiratory Respiratory exam: Present: normal lung sounds bilaterally - Cardiovascular Cardiovascular exam: Present: regular rate, normal rhythm, normal heart sounds - Abdominal Exam Abdominal exam: Present: tenderness (Mild tenderness in epigastric region). Absent: distention, guarding, rebound, rigidity - Extremities Exam Extremities exam: Present: normal inspection, full ROM, tenderness (Mild tenderness with ASIS compression on the left hip. ). Absent: pedal edema - Neurological Exam Neurological exam: Present: alert, oriented X3 - Psychiatric Psychiatric exam: Present: normal affect, normal mood - Skin Skin exam: Present: warm, dry, intact, normal color Course Course Narrative: Blood pressure 90s over 60s on presentation. Otherwise, the rest of her vitals were within normal limits. Patient satting 100% on 2 L nasal cannula oxygen. She wears 2 L chronically. Physical exam shows pallor, epigastric tenderness. She also has left hip tenderness. Due to the patient being on Coumadin and hitting her head, we will obtain CT of the head. She has no cervical spine tenderness. Also obtain cardiac workup due to chest pain. Also concern for anemia. Patient was given 1 L normal saline for hypotension. 14:34 hemoglobin 6.4. Creatinine 3.14, increased from previous 1.14. Troponin 0.06. INR 5.0. Chest x-ray shows unchanged right pleural effusion. The rest of her imaging was negative for any acute process or fracture. Currently waiting on occult blood. Patient has signed transfusion consent forms. We will transfuse 2 units. She is received 1 L of normal saline. BP stable. Will have patient hold coumadin. Elevated trop is likely secondary to demand ischemia and FRAN. Will admit for possible GI bleed, FRAN, symptomatic anemia, elevated troponin. 15:08 Positive hemoccult. 16:13 Dr. Mota, hospitalist, has accepted patient for admission. She requested that I give the patient vitamin K due to anemia and positive hemoccult. Will give the patient 5mg PO vitamin K. Chest X-Ray 09/27/16 12:53 IMPRESSION: Stable right effusion and lung base consolidation with no new traumatic abnormality. D/ / 09/27/2016 13:28:22 Delonte Casey MD / [facility] Interpreting Provider: Delonte Casey MD Femur X-Ray 09/27/16 13:02 IMPRESSION: No acute fracture. Normal left hip alignment. D/ / Delonte Casey MD / Delonte Casey MD Interpreting Provider: Delonte Casey MD Head CT 09/27/16 13:02 IMPRESSION: 1. No acute intracranial abnormality. D/ / Frank Fuentes MD / Frank Fuentes MD Interpreting Provider: Frank Fuentes MD Pelvis X-Ray 09/27/16 13:02 IMPRESSION: No acute osseous abnormality. D/ / Pasha Smith MD / Pasha Smith MD Interpreting Provider: Pasha Smith MD Cervical Spine CT 09/27/16 13:33 IMPRESSION: No acute abnormality of the cervical spine. Multilevel degenerative changes Large right pleural effusion D/ / Mathew Cerda MD / Mathew Cerda MD Interpreting Provider: Mathew Cerda MD Vital Signs Temperature 97.7 F 09/27/16 12:41 Pulse Rate 52 09/27/16 12:41 Respiratory Rate 16 09/27/16 12:41 Blood Pressure 92/45 09/27/16 12:41 O2 Sat by Pulse Oximetry 93 09/27/16 12:41 Temperature 97.3 F L 09/27/16 15:28 Pulse Rate 48 09/27/16 15:28 Respiratory Rate 18 09/27/16 15:28 Blood Pressure 103/51 09/27/16 15:28 O2 Sat by Pulse Oximetry 100 09/27/16 15:28 Oxygen Delivery Oxygen Delivery Nasal Cannula Chest Pain - MDM Narrative Medical decision making narrative: Blood pressure 90s over 60s on presentation. Otherwise, the rest of her vitals were within normal limits. Patient satting 100% on 2 L nasal cannula oxygen. She wears 2 L chronically. Physical exam shows pallor, epigastric tenderness. She also has left hip tenderness. Due to the patient being on Coumadin and hitting her head, we will obtain CT of the head. She has no cervical spine tenderness. Also obtain cardiac workup due to chest pain. Also concern for anemia. Patient was given 1 L normal saline for hypotension. 14:34 hemoglobin 6.4. Creatinine 3.14, increased from previous 1.14. Troponin 0.06. INR 5.0. Chest x-ray shows unchanged right pleural effusion. The rest of her imaging was negative for any acute process or fracture. Currently waiting on occult blood. Patient has signed transfusion consent forms. We will transfuse 2 units. She is received 1 L of normal saline. BP stable. Will have patient hold coumadin. Elevated trop is likely secondary to demand ischemia and FRAN. Will admit for possible GI bleed, FRAN, symptomatic anemia, elevated troponin. 15:08 [address] hemoccult. 16:13 Dr. Mota, hospitalist, has accepted patient for admission. She requested that I give the patient vitamin K due to anemia and positive hemoccult. Will give the patient 5mg PO vitamin K. - Medical Records Medical records reviewed: Yes I reviewed the patient's medical records. - Lab Data Lab results reviewed: Yes I reviewed the patient's lab results. Result diagrams: 09/27/16 13:07 09/27/16 13:07 Lab Results 09/27/16 09/27/16 09/27/16 Range/Units 13:07 13:07 13:07 WBC 8.1 (4.3-11.1) K/mcL RBC 2.54 L (3.82-4.97) M/mcL Hgb 6.4 L (11.5-15.4) g/dL Hct 21.9 L (35.3-44.9) % MCV 86.2 (83.0-100.0) fL MCH 25.2 L (28.0-33.3) pg MCHC 29.2 L (31.6-35.5) g/dL RDW 19.3 H (11.5-14.5) % Plt Count 249 (140-400) K/mcL MPV 10.1 (9.4-12.4) fL Immature Gran % 0.5 (0-4) % Seg Neutrophils % 65.8 % Lymphocytes % 20.1 % Monocytes % 12.6 % Eosinophils % 0.4 % Basophils % 0.6 % Neutrophils # 5.4 (1.6-8.9) K/mcL Lymphocytes # 1.6 (0.6-4.6) K/mcL Monocytes # 1.0 (0.0-1.3) K/mcL Eosinophils # 0.0 (0.0-0.6) K/mcL Basophils # 0.1 (0.0-0.2) K/mcL PT 56.3 H* (9.4-12.1) Seconds INR 5.0 H* APTT 43.6 H (26.0-36.0) Seconds Sodium 139 (136-145) mEq/L Potassium 4.5 (3.5-4.5) mEq/L Chloride 103 (98-109) mEq/L Carbon Dioxide 22 (19-29) mEq/L BUN 32 H (7-20) mg/dL Creatinine 3.14 H (0.57-1.11) mg/dL Est GFR ( Amer) 18 L (> 60) Est GFR (Non-Af Amer) 15 L (> 60) BUN/Creatinine Ratio 10 (6-26) Glucose 123 H (70-99) mg/dL POC Glucose (58-89) Calculated Osmolality 296 (280-300) Calcium 9.2 (8.6-10.8) mg/dL Troponin I (0-0.03) ng/mL Stool Occult Blood (Negative) Blood Type Antibody Screen Crossmatch 09/27/16 09/27/16 09/27/16 Range/Units 13:07 13:07 13:12 WBC (4.3-11.1) K/mcL RBC (3.82-4.97) M/mcL Hgb (11.5-15.4) g/dL Hct (35.3-44.9) % MCV (83.0-100.0) fL MCH (28.0-33.3) pg MCHC (31.6-35.5) g/dL RDW (11.5-14.5) % Plt Count (140-400) K/mcL MPV (9.4-12.4) fL Immature Gran % (0-4) % Seg Neutrophils % % Lymphocytes % % Monocytes % % Eosinophils % % Basophils % % Neutrophils # (1.6-8.9) K/mcL Lymphocytes # (0.6-4.6) K/mcL Monocytes # (0.0-1.3) K/mcL Eosinophils # (0.0-0.6) K/mcL Basophils # (0.0-0.2) K/mcL PT (9.4-12.1) Seconds INR APTT (26.0-36.0) Seconds Sodium (136-145) mEq/L Potassium (3.5-4.5) mEq/L Chloride (98-109) mEq/L Carbon Dioxide (19-29) mEq/L BUN (7-20) mg/dL Creatinine (0.57-1.11) mg/dL Est GFR ( Amer) (> 60) Est GFR (Non-Af Amer) (> 60) BUN/Creatinine Ratio (6-26) Glucose (70-99) mg/dL POC Glucose 130 H (58-89) Calculated Osmolality (280-300) Calcium (8.6-10.8) mg/dL Troponin I 0.06 H* (0-0.03) ng/mL Stool Occult Blood (Negative) Blood Type O POSITIVE Antibody Screen NEGATIVE Crossmatch See Detail 09/27/16 Range/Units 13:48 WBC (4.3-11.1) K/mcL RBC (3.82-4.97) M/mcL Hgb (11.5-15.4) g/dL Hct (35.3-44.9) % MCV (83.0-100.0) fL MCH (28.0-33.3) pg MCHC (31.6-35.5) g/dL RDW (11.5-14.5) % Plt Count (140-400) K/mcL MPV (9.4-12.4) fL Immature Gran % (0-4) % Seg Neutrophils % % Lymphocytes % % Monocytes % % Eosinophils % % Basophils % % Neutrophils # (1.6-8.9) K/mcL Lymphocytes # (0.6-4.6) K/mcL Monocytes # (0.0-1.3) K/mcL Eosinophils # (0.0-0.6) K/mcL Basophils # (0.0-0.2) K/mcL PT (9.4-12.1) Seconds INR APTT (26.0-36.0) Seconds Sodium (136-145) mEq/L Potassium (3.5-4.5) mEq/L Chloride (98-109) mEq/L Carbon Dioxide (19-29) mEq/L BUN (7-20) mg/dL Creatinine (0.57-1.11) mg/dL Est GFR ( Amer) (> 60) Est GFR (Non-Af Amer) (> 60) BUN/Creatinine Ratio (6-26) Glucose (70-99) mg/dL POC Glucose (58-89) Calculated Osmolality (280-300) Calcium (8.6-10.8) mg/dL Troponin I (0-0.03) ng/mL Stool Occult Blood Positive A (Negative) Blood Type Antibody Screen Crossmatch - Radiology Data Radiology results reviewed: Yes I reviewed the patient's radiology results. Chest X-Ray 09/27/16 12:53 IMPRESSION: Stable right effusion and lung base consolidation with no new traumatic abnormality. D/ / 09/27/2016 13:28:22 Delonte Casey MD / [facility] Interpreting Provider: Delonte Casey MD Femur X-Ray 09/27/16 13:02 IMPRESSION: No acute fracture. Normal left hip alignment. D/ / 09/27/2016 14:36:56 Delonte Casey MD / [facility] Interpreting Provider: Delonte Casey MD Head CT 09/27/16 13:02 IMPRESSION: 1. No acute intracranial abnormality. D/ / Frank Fuentes MD / Frank Fuentes MD Interpreting Provider: Frank Fuentes MD Pelvis X-Ray 09/27/16 13:02 IMPRESSION: No acute osseous abnormality. D/ / Pasha Smith MD / Pasha Smith MD Interpreting Provider: Pasha Smith MD Cervical Spine CT 09/27/16 13:33 IMPRESSION: No acute abnormality of the cervical spine. Multilevel degenerative changes Large right pleural effusion D/ / Mathew Cerda MD / Mathew Cerda MD Interpreting Provider: Mathew Cerda MD - EKG Data EKG attestation: Yes I reviewed and interpreted this EKG. EKG results narrative: 09/27/2016 at 12:51. Sinus bradycardia. Rate 52. W[place] intervals 170. QRS 92. QTC 411. T-wave inversion in V2, V3, V4, V5, V6 this is new from previous EKG. T-wave inversion in aVL present on previous EKG. S.B.A.R. - S.B.A.R. Situation: Demographics, MOA Background: Presenting Complaint, Relevant PMH, Meds, & Allergies Assessment: Vital Signs, Course and respsone to treatment, Exam Concerns, Patient/Family Expectation, Pertinant Lab Results, Outstanding Labs Recommendation: Barrier(s) to disposition, Recommendation based on pending studies, treatments, or consults S.B.A.R. Report Given to: Dr. Nakul Stewart Repor Time: 16:15 Attestation Statement - Attestation Attestation: I examined this patient and my medical decision-making was reviewed with the TELLER SUPERVISOR/PA/Advanced Practice Nurse/Resident Physician. I agree with the documented findings, disposition and treatment plan as described except to the extent set forth below. My signature below is to certify that this patient is under my care and that I, or nurse practitioner, or a physician's casting assistant working with me, has a face-to -face encounter with this patient. The high probability of a clinically significant, sudden or life threatening deterioration of the vascular/renal system(s) required my full and direct attention, intervention and personal management. The aggregate critical care time was 40 minutes. This time is in addition to time spent performing reported procedures but includes the following: [] Data Review and interpretation [] Patient assessment and monitoring of vital signs [] Documentation [] Medication orders and management Critical care time spent in medical resuscitation with her severe anemia requiring transfusion of packed red blood cells as well as workup of her dehydration and acute kidney injury. Patient is also hypotensive. This could be secondary to her low volume and hemoglobin status as well as her dehydration. Patient will need to be readmitted.
[2016-09-27] MEDS ORDERED: 0.9 % Sodium Chloride 1,000 ML IVC ONE (12:53)
[2016-09-27 13:14] LABS: Basophils # 0.1 K/mcL (0.0-0.2); Basophils % 0.6 %; Eosinophils % 0.4 %; Hematocrit 21.9 % (35.3-44.9); Hemoglobin 6.4 g/dL (11.5-15.4); Immature Granulocytes % 0.5 % (0-4); Lymphocytes # 1.6 K/mcL (0.6-4.6); Lymphocytes % 20.1 %; Mean Corpuscular HGB Conc 29.2 g/dL (31.6-35.5); Mean Corpuscular Hemoglobin 25.2 pg (28.0-33.3); Mean Corpuscular Volume 86.2 fL (83.0-100.0); Mean Platelet Volume 10.1 fL (9.4-12.4); Monocytes % 12.6 %; Neutrophils # 5.4 K/mcL (1.6-8.9); Platelet Count 249 K/mcL (140-400); Red Blood Count 2.54 M/mcL (3.82-4.97); Red Cell Distribution Width 19.3 % (11.5-14.5); Segmented Neutrophils % 65.8 %
[2016-09-27 13:22] LABS: Activated Partial Thrombo Time 43.6 Seconds (26.0-36.0)
[2016-09-27 13:27] LABS: Prothrombin Time 56.3 Seconds (9.4-12.1)
[2016-09-27 13:33] LABS: Calcium 9.2 mg/dL (8.6-10.8); Potassium 4.5 mEq/L (3.5-4.5)
[2016-09-27] MEDS ORDERED: 0.9 % Sodium Chloride 500 ML ONE (14:44)
[2016-09-27] MEDS ORDERED: *HR* Phytonadione 5 MG TABLET PO ONE (16:14)
[2016-09-27] MEDS ORDERED: Naloxone 0.4 MG/ML INJ IVP PRN (18:49)
--- NOTE | 2016-09-27 19:18 | Internal Med History&Physical ---
<Damaris Claudio - Last Filed: 09/28/16 00:11> Date of Encounter: 09/28/16 Time of Encounter: 17:00 Assessment and Plan (1) Acute blood loss anemia Current visit: No Status: Acute 1 patient's hemoglobin is 6.4 on presentation patient has been receiving Coumadin due to left atrium appendage thrombus and had a previous episode of bleeding 09/07/16 at that time she underwent an EGD which did not show any active bleeding colonoscopy polyps removed. We will hold Coumadin for now 2 type and screen for PRBCs-3 3 she was given vitamin K 4 we will give FFP 5 monitor CBC 6 consult GI-consult day team to notify Dr Zimmermna per phone (2) Elevated troponin Current visit: Yes Status: Acute 1 most likely rt demand ischemia dt blood loss . will trend troponin 2 continuos cardiac monitoring (3) FRAN (acute kidney injury) Current visit: No Status: Acute 1 patient's creatinine is elevated at 3.14 which is increasing from previous which is 1.14 was likely secondary to blood loss hypoperfusion. We will transfuse. PRBC 2 hold antihypertensives 3 hold metformin 4 avoid nephrotoxins 5 monitor creatinine (4) Coagulopathy Current visit: No Status: Acute 1 patient's wound was 5. Coumadin has been held. 2. Vitamin K 3 FFP 4 monitor INR (5) Bradycardia Current visit: Yes Status: Acute 1 patient has bradycardia with heart rates in the 40s. She is on Cardizem metoprolol as well as digoxin. We will obtain dig level 2. Hold Cardizem and metoprolol for now 3 continue his cardiac monitoring (6) Mural thrombus of cardiac apex Current visit: No Status: Acute 1 patient was on Coumadin however she has Elevated INR for second time in the past 3 weeks as well as bleeding and dropping hemoglobin. Hold Coumadin for now. May need to initiate heparin stable 2 patient is being followed by cardiology continue to consult as needed (7) DVT prophylaxis Current visit: Yes Status: Acute scd Internal Medicine - H&P: HPI Chief complaint: CP Admitted From: Emergency Dept Plans for Post Hospital Care: Home History of present illness: Ms. Hernández is a 65 year old female past medical history of COPD oxygen dependent breast cancer CHF diabetes type 2 GI bleed hyperlipidemia hypertension CABG left atrial appendage thrombus. The patient has had several hospitalizations since June. Last hospitalization was partly 3 weeks agowhen she experienced bleeding hemoglobin 5.7 that time. Patient was on Coumadin she was given PRBCs and FFP. She underwent EGD colonoscopy there was no bleeding found and there were 2 polyps removed with no bleeding afterward. She was placed on heparin and bridged to Coumadin. Patient was discharged home and was doing well for approximately 4-5 days then she begin to experience extreme weakness shortness of breath palpitations nausea vomiting. She began to experience midabdominal pain which radiated up into her chest she had this morning and she went to the bathroom and she had some lower abdominal cramping and then had a a bowel movement which was bright red blood she stood up and fell down to the wall. She had another episode of bright red blood. She denies any hematemesis fevers chills. She was brought to the ER for evaluation. According to ER records upon presentation patient's blood pressure was 90/60 CT of head was obtained as well as C-spine which were all negative for fracture or intracranial bleed. She was given a liter of saline for hypertension hemoglobin was 6.4 her creatinine was 3.4 which was increased from previous which was 1.4 troponin was 0.06 and INR was 5. Chest x-ray shows unchanged right pleural effusion she was occult blood positive. She was given 2 units of PRBCs as well as vitamin K she has been admitted for further evaluation. Presently the patient does not appear to be in any respiratory distress she denies any chest pain at this time. Lungs sounds are clear heart sounds S1-S2 with no rubs clicks gallops murmurs. No active bleeding noted. She is bradycardic on the monitor blood pressure stable at this time. I reviewed this case with who agrees with plan Past Med Surg Social Fam HX - Past Medical History Medical history: asthma, cancer, CHF, diabetes, GI bleed, hyperlipidemia, hypertension Psychiatric history: anxiety - Past Surgical History Surgical History: appendectomy, breast surgery, coronary bypass (CABG) - Social History Smoking Status: Former smoker Smokeless Tobacco Status: No Alcohol use: none Drug use: none - Family History Father Adopted: No Family Member Ethnicity: Non- Living Status: Hx Family Cardiac Disorders: Yes Hx Family Respiratory Disorders: Yes Hx Family Cancer: Yes (Liver cancer) Hx Family GI Disorders: No Hx Family Endocrine Disorder: Yes Hx Family Neuromuscular Disorders: No Hx Family Neurologic Disorders: No Hx Family HEENT Disorders: No Hx Family Autoimmune Disorders: No Internal Medicine - H&P: Meds Cholecalciferol (D-3) [Vitamin D] 2,000 unit PO DAILY 04/18/16 [History] Diphenoxylate/Atropine [Lomotil 2.5 mg/0.025 mg] 1 tab PO BID PRN 04/18/16 [ History] Gabapentin [Neurontin] 900 mg PO HS 04/18/16 [History] Losartan/Hydrochlorothiazide [Hyzaar 100-12.5 Tablet] 1 tab PO DAILY 04/18/16 [ History] Metformin HCl [Metformin HCl ER] 500 mg PO BID 04/18/16 [History] Aspirin Enteric Coated [Aspirin EC] 81 mg PO DAILY #30 tablet. 06/14/16 [Rx] Digoxin [Lanoxin] 0.125 mg PO DAILY #30 tablet 06/14/16 [Rx] Citalopram Hydrobromide [Celexa] 30 mg PO DAILY 07/23/16 [History] Metoprolol Succinate 200 mg PO BID 07/23/16 [History] Warfarin [Coumadin] 2 mg PO SUFR 07/23/16 [History] Warfarin [Coumadin] 4 mg PO MOTUWETHSA 07/23/16 [History] Diltiazem CD (24hr) [Cardizem CD] 120 mg PO DAILY #30 cap.er.24h 07/26/16 [Rx] Ferrous Sulfate 325 mg PO BIDWM #30 tablet 09/10/16 [Rx] Albuterol Sulfate [Albuterol Inhaler] 2 puff IH Q4H PRN 09/27/16 [History] Amoxicillin [Amoxil] 500 mg PO QID 09/27/16 [History] Atorvastatin Calcium [Lipitor] 20 mg PO HS 09/27/16 [History] Clarithromycin [Biaxin] 500 mg PO BID 09/27/16 [History] Fluticasone/Salmeterol [Advair Hfa 230-21 Mcg Inhaler] 2 puff IH BID 09/27/16 [ History] Pantoprazole Sodium [Protonix] 40 mg PO BID 09/27/16 [History] Allergies No Known Allergies Allergy (Verified 06/12/16 09:27) All Systems PM: A 10-system review of systems was performed and is negative for pertinent findings except as documented above in the HPI. - Constitutional Constitutional: fatigue, weakness - Cardiovascular Cardiovascular ROS IM: chest pain, dyspnea, edema, palpitations - Respiratory Respiratory: dyspnea on exertion - Gastrointestinal Gastrointestinal: cramping, hematochezia, nausea - Genitourinary Genitourinary: no change in urinary stream, no dysuria, no flank pain, no hematuria - Musculoskeletal Musculoskeletal ROS IM: no numbness, no tingling - Neurological Neurological ROS: no confusion, no convulsions, no focal weakness, no numbness, no tingling, no tremor(s) - Constitutional Vitals: Temp Pulse Resp BP Pulse Ox 97.4 F L 46 18 105/70 100 09/27/16 17:28 09/27/16 17:28 09/27/16 18:29 09/27/16 18:29 09/27/16 15:28 General appearance: Present: A&O X 3, answers questions appropriately - Head Head exam: Present: atraumatic, normocephalic - Eye Eye exam: Present: PERRL, conjuntiva pink, sclera anicteric Pupils: Present: PERRL - Neck Neck exam general surgery: Present: supple, trachea midline. Absent: lymphadenopathy - Respiratory Respiratory exam: Present: CTAB. Absent: accessory muscle use, rales, rhonchi, wheezes - Cardiovascular Cardiovascular exam: Present: RRR, +S1, +S2. Absent: diastolic murmur, gallop, rubs, systolic murmur - GI/Abdominal GI/Abdominal exam: Present: normal bowel sounds, soft, no peritoneal signs. Absent: distended, tenderness - Extremities Exam Extremities exam: Present: warm, radial pulses palpable and symetrical. Absent : calf tenderness, cyanotic, pedal edema - Neurological Exam Neurological exam: Present: CN II-XII intact, oriented X3, no focal deficits. Absent: pronater drift, facial droop, speech deficit - Skin Skin exam: Present: dry, intact Internal Med - H&P Results - Labs CBC & Chem 7: 09/27/16 13:07 09/27/16 13:07 - EKG Data Rate: bradycardia - EKG Data Prior EKG available for review: yes When compared to previous EKG: there are significant changes - Diagnostic Studies Other Images Additional comments: Chest X-Ray 09/27/16 12:53 IMPRESSION: Stable right effusion and lung base consolidation with no new traumatic abnormality. D/ / 09/27/2016 13:28:22 Delonte Casey MD / [email or web address] Interpreting Provider: Delonte Casey MD Femur X-Ray 09/27/16 13:02 IMPRESSION: No acute fracture. Normal left hip alignment. D/ / 09/27/2016 14:36:56 Delonte Casey MD / [email or web address] Interpreting Provider: Delonte Casey MD Head CT 09/27/16 13:02 IMPRESSION: 1. No acute intracranial abnormality. D/ / Frank Fuentes MD / Frank Fuentes MD Interpreting Provider: Frank Fuentes MD Pelvis X-Ray 09/27/16 13:02 IMPRESSION: No acute osseous abnormality. D/ / 09/27/2016 14:51:31 Pasha Smith MD / [email or web address] Interpreting Provider: Pasha Smith MD Cervical Spine CT 09/27/16 13:33 IMPRESSION: No acute abnormality of the cervical spine. Multilevel degenerative changes Large right pleural effusion D/ / Mathew Cerda MD / Mathew Cerda MD Interpreting Provider: Mathew Cerda MD <Pretty Donnelly R - Last Filed: 09/28/16 04:27> Date of Encounter: 09/27/16 Assessment and Plan (1) Digoxin toxicity Current visit: Yes Status: Acute Monitor levels. Cardiology consult Qualifiers: Encounter type: initial encounter Injury intent: accidental or unintentional Qualified Code(s): T46.0X1A - Poisoning by cardiac-stimulant glycosides and drugs of similar action, accidental (unintentional), initial encounter (2) Thrombus of left atrial appendage Current visit: Yes Status: Chronic Pt is on warfarin, which is held due to GI bleed. Cardiology consult for further advice Internal Medicine - H&P: HPI History of present illness: Ms. Hernández is a 65 year old female All Systems PM: A 10-system review of systems was performed and is negative for pertinent findings except as documented above in the HPI. - Constitutional Vitals: Temp Pulse Resp BP Pulse Ox 97.8 F 48 18 100/58 96 09/28/16 02:30 09/28/16 02:30 09/28/16 02:30 09/28/16 02:30 09/28/16 02:30 Internal Med - H&P Results - Labs CBC & Chem 7: 09/28/16 01:00 09/28/16 01:00 Labs: Short CBC 09/28/16 Range/Units 01:00 WBC 9.5 (4.3-11.1) K/mcL Hgb 8.1 L D (11.5-15.4) g/dL Hct 26.2 L (35.3-44.9) % Plt Count 242 (140-400) K/mcL Neutrophils # 5.6 (1.6-8.9) K/mcL BMP 09/28/16 01:00 Sodium 137 Potassium 4.3 Chloride 103 Carbon Dioxide 22 BUN 36 H Creatinine 3.81 H Glucose 95 Calcium 8.7 Cardiac Enzymes 09/27/16 09/28/16 Range/Units 19:48 01:00 Troponin I 0.06 H* 0.06 H* (0-0.03) ng/mL - Attending Attestation I performed history and physical examination of the patient and discussed management with the ACCOUNT LEADER / ANP. I reviewed the ACCOUNT LEADER / ANPs note and agree with documented findings and plan of care. 65 Y/F with h/o COPD, CHF, left atrial appendage thrombus noted on the transesophageal echocardiogram done on 2016. She is on warfarin for evaluation. She has recent history of gastrointestinal bleeding and had upper GI endoscopy and colonoscopy done, with removal of Colonic polyps. She presents with weakness, nausea, vomiting, abdominal cramping and rectal bleeding. She was noted to have hemoglobin of 6.4 in the emergency department, INR of 5, and positive fecal blood. In the ER, She was given vitamin K, started on the blood transfusion. O/E: Regular rate and rhythm; started murmur. Abdomen soft and nontender EKG personally reviewed by me shows sinus tachycardia, Q wave in lead 3. Imaging results reviewed: Chest x-ray reports stable right pleural effusion and consolidation. Labs reviewed A/P: GI bleed/acute blood loss anemia/on anticoagulation for COSTA thrombus: Likely lower GI bleed. Pt was given vitamin K in the emergency department. We will treat with FFP, to reverse anticoagulation in the acute period, due to significant acute blood loss anemia. Consult share dairy farmer and acoustical installer for further advice / management. FRAN: Likely due to volume loss. On blood transfusion. Nephrology consult and renal US scan. Digoxin toxicity: Pt has bradycardia, but hemodynamically stable. Monitor digoxin levels. Cardiology consult. Of Note: department sales manager note reported mural thrombus of the cardiac apex (Which is an error). Pt has Left atrial appendage thrombus based on JAUN done on 07/16/16.
[2016-09-27] MEDS ORDERED: Dextrose Gel 15 GM PO PRN ×2 (19:31)
[2016-09-27] MEDS ORDERED: *HR* Dextrose 50 % in Water (Syg) 50 ML SYRINGE IVP PRN (19:31)
[2016-09-27] MEDS ORDERED: D5% in Water 1,000 ML IVC PRN (19:31)
[2016-09-27] MEDS ORDERED: Acetaminophen 325 MG TABLET PO ONE (20:37)
[2016-09-27] MEDS ORDERED: Gabapentin 300 MG CAPSULE PO SCH (21:00)
[2016-09-27] MEDS: Ondansetron 4 MG/2 ML VIAL IVP PRN (21:17)
[2016-09-27] MEDS ORDERED: 0.9 % Sodium Chloride 250 ML ONE (22:02)
[2016-09-27] MEDS ORDERED: *HR* Morphine 2 MG/ML SYRINGE IVP ONE (22:05)
[2016-09-28 02:04] LABS: Basophils # 0.1 K/mcL (0.0-0.2); Basophils % 0.8 %; Eosinophils # 0.1 K/mcL (0.0-0.6); Eosinophils % 0.8 %; Hematocrit 26.2 % (35.3-44.9); Immature Granulocytes % 0.7 % (0-4); Lymphocytes # 2.4 K/mcL (0.6-4.6); Lymphocytes % 25.2 %; Mean Corpuscular HGB Conc 30.9 g/dL (31.6-35.5); Mean Corpuscular Volume 87.3 fL (83.0-100.0); Mean Platelet Volume 11.2 fL (9.4-12.4); Monocytes # 1.3 K/mcL (0.0-1.3); Monocytes % 13.7 %; Neutrophils # 5.6 K/mcL (1.6-8.9); Platelet Count 242 K/mcL (140-400); Red Cell Distribution Width 17.8 % (11.5-14.5); Segmented Neutrophils % 58.8 %
[2016-09-28 02:05] LABS: Hemoglobin 8.1 g/dL (11.5-15.4)
[2016-09-28 02:19] LABS: Calcium 8.7 mg/dL (8.6-10.8); Potassium 4.3 mEq/L (3.5-4.5)
--- NOTE | 2016-09-28 06:30 | Electrocardiograph Report ---
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
[2016-09-28 06:56] LABS: Hematocrit 28.6 % (35.3-44.9)
[2016-09-28 07:00] LABS: INR 2.9; Prothrombin Time 31.8 Seconds (9.4-12.1)
[2016-09-28 07:03] LABS: Activated Partial Thrombo Time 40.3 Seconds (26.0-36.0)
[2016-09-28] MEDS ORDERED: *HR* Digoxin 0.125 MG TABLET PO SCH (09:00)
[2016-09-28] MEDS: Insulin LISPRO 300 UNITS/3 ML VIAL SQ SCH ×4 (09:13→20:49)
[2016-09-28] MEDS: Cholecalciferol (D-3) 1,000 UNIT TABLET PO SCH (09:15)
[2016-09-28] MEDS: 0.9 % Sodium Chloride 1,000 ML IVC SCH (10:51)
--- NOTE | 2016-09-28 11:50 | Gastroenterology Consult Note ---
<Mathew Zapien Ike - Last Filed: 09/28/16 11:47> Date of Encounter: 09/28/16 Time of Encounter: 10:20 - Assessment and plan (1) Acute blood loss anemia Current Visit: No Status: Acute Assessment and plan: Continue to monitor CBC and transfuse PRBC as needed. Last colonoscopy 09/08/16 with 10 and 14 mm tubular adenomas removed, which is likely site of bleeding. Plan for colonoscopy tomorrow if INR less than 1.5. Clear liquid diet today, no red or purple. NPO at midnight. If unable tolerate NuLytely please use MiraLAX prep. If not clear by 6 AM, give 2 tap water enemas. (2) Coagulopathy Current Visit: No Status: Acute Assessment and plan: INR 5 on admission and 2.9 this AM. She has received 5 mg Vitamin K and 1 FFP. She is due to have 1 more unit FFP. Recommend another dose of Vitamin K today. Plan for colonoscopy tomorrow if INR less than 1.5. Check PT/INR in AM. (3) Thrombus of left atrial appendage Current Visit: Yes Status: Chronic - Time Spent With Patient Total time spent is greater than 50% in coordination of care (as documented) at patient's floor/unit and/or counseling patient: GI History of Present Illness - Data of Consult Patient: known to practice within the last 3 years Consult date: 09/28/16 Requesting Physician: Michael Nicole MD - Consult Narrative Reason for consult: Lower GI bleed History of present illness: Ms. Hernández is a 65 year old female with PMHx of arthritis, astma, Afib, cardiomyopathy, CHF, COPD, CAD, DVT, DM, GERD, HLD, HTN, and CO. Pt on Coumadin due to thrombus of left atrial appendage. Pt had EGD and colonoscopy 09/08/16 due to anemia, but no bleeding was found, and was discharged on 09/10/2016. Patient was discharged home and was doing well for approximately 4-5 days then she begin to experience extreme weakness, SOB, palpitations, nausea, and vomiting. She began to experience midabdominal pain/cramping and then had a BM which was bright red blood. She denies any fevers, chills, hematemesis, or coffee-ground emesis. Procedures: Colonoscopy 09/08/2016 Dr. Zimmerman: 10mm and 14mm tubular adenoma, diverticulosis, internal hemorrhoids, repeat 3 years. EGD 09/08/2016 Dr. Zimmerman: single nodule in stomach, gastropathy NSAIDs: ASA Anticoagulation: None Past Med Surg Social Fam HX - Past Medical History Medical history: asthma, cancer, CHF, diabetes, GI bleed, hyperlipidemia, hypertension Psychiatric history: anxiety - Past Surgical History Surgical History: appendectomy, breast surgery, coronary bypass (CABG) - Social History Smoking Status: Former smoker Smokeless Tobacco Status: No Alcohol use: none Drug use: none - Family History Father Adopted: No Family Member Ethnicity: Non- Living Status: Hx Family Cardiac Disorders: Yes Hx Family Respiratory Disorders: Yes Hx Family Cancer: Yes (Liver cancer) Hx Family GI Disorders: No Hx Family Endocrine Disorder: Yes Hx Family Neuromuscular Disorders: No Hx Family Neurologic Disorders: No Hx Family HEENT Disorders: No Hx Family Autoimmune Disorders: No - Gastrointestinal Gastrointestinal: Present: as per HPI - Constitutional Constitutional: as per HPI - EENT Eyes: as per HPI Ears: Present: as per HPI Nose, mouth and throat: Present: as per HPI - Cardiovascular Cardiovascular ROS: Present: as per HPI - Respiratory Respiratory IM: Present: as per HPI - Genitourinary Genitourinary: Absent: change in color, Urinary frequency - Neurological ROS Neurological GI: Present: as per HPI - Hematologic/Lymphatic Hematologic/Lymphatic pediatric: Present: as per HPI - Musculoskeletal Musculoskeletal ROS GI: Present: as per HPI - Integumentary Integumentary GI: Present: as per HPI - Psychiatric ROS Psychiatric GI: Present: as per HPI - Endocrine Endocrine IM: Present: as per HPI - Constitutional Vitals: Temp Pulse Resp BP Pulse Ox 98.2 F 53 18 110/59 93 09/28/16 11:26 09/28/16 11:26 09/28/16 11:26 09/28/16 11:26 09/28/16 11:26 General appearance: Present: cooperative, A&O X 3, no acute distress, answers questions appropriately - Head Head exam: Present: atraumatic, normocephalic - Eye Eye exam: Present: normal appearance, sclera anicteric - ENT ENT exam: Present: mucous membranes dry - Neck Neck exam general surgery: Present: normal inspection, trachea midline - Respiratory Respiratory exam: Present: CTAB. Absent: rales, rhonchi - Cardiovascular Cardiovascular exam: Present: RRR, +S1, +S2 - GI/Abdominal GI/Abdominal exam: Present: soft, no peritoneal signs. Absent: distended, firm , guarding, tenderness - Rectal Rectal exam: Present: deferred - Extremities Exam Extremities exam: Present: warm - Neurological Exam Neurological exam: Present: no focal deficits - Psychiatric Psychiatric exam: Present: normal affect, normal mood - Skin Skin exam: Present: dry, intact, normal color, warm Results - Labs CBC & Chem 7: 09/28/16 06:46 09/28/16 01:00 Labs: Last Result Calcium 8.7 mg/dL (8.6-10.8) 09/28/16 01:00 Troponin I 0.06 ng/mL (0-0.03) H* 09/28/16 01:00 Stool Occult Blood Positive (Negative) A 09/27/16 13:48 Entire Visit Hgb 9.0 g/dL (11.5-15.4) L 09/28/16 06:46 Hct 28.6 % (35.3-44.9) L 09/28/16 06:46 PT 31.8 Seconds (9.4-12.1) H 09/28/16 06:46 - ABG ABG results: PT/INR, D-dimer PT 31.8 Seconds (9.4-12.1) H 09/28/16 06:46 Consult Discharge Plan - Plan Referrals: Ward Mcmanus MD [Primary Care Provider] - 10/08/16 2:00 pm () <Ed Zmimerman - Last Filed: 09/28/16 14:12> Date of Encounter: 09/28/16 Time of Encounter: 14:00 - Time Spent With Patient Total time spent is greater than 50% in coordination of care (as documented) at patient's floor/unit and/or counseling patient: GI History of Present Illness - Data of Consult Requesting Physician: Michael Nicole MD - Consult Narrative History of present illness: Ms. Hernández is a 65 year old female - Constitutional Vitals: Temp Pulse Resp BP Pulse Ox 98.2 F 53 18 110/89 93 09/28/16 11:26 09/28/16 12:00 09/28/16 12:00 09/28/16 12:00 09/28/16 12:00 Results - Labs CBC & Chem 7: 09/28/16 12:16 09/28/16 01:00 Labs: Last Result Calcium 8.7 mg/dL (8.6-10.8) 09/28/16 01:00 Troponin I 0.06 ng/mL (0-0.03) H* 09/28/16 01:00 Stool Occult Blood Positive (Negative) A 09/27/16 13:48 Entire Visit Hgb 8.9 g/dL (11.5-15.4) L 09/28/16 12:16 Hct 28.2 % (35.3-44.9) L 09/28/16 12:16 PT 31.8 Seconds (9.4-12.1) H 09/28/16 06:46 - ABG ABG results: PT/INR, D-dimer PT 31.8 Seconds (9.4-12.1) H 09/28/16 06:46 - Attending Attestation I examined this patient and my medical decision-making was reviewed with the PEDIATRIC ONCOLOGIST/PA/Advanced Practice Nurse/Resident Physician. I agree with the documented findings, disposition and treatment plan as described except to the extent set forth below. Patient seendid have some blood on wiping herself but no overt GI bleeding. No overt GI bleeding no need for colonoscopy. Transfuse as needed.
[2016-09-28] MEDS ORDERED: *HR* Phytonadione 5 MG TABLET PO ONE (11:59)
[2016-09-28 12:26] LABS: Hematocrit 28.2 % (35.3-44.9); Hemoglobin 8.9 g/dL (11.5-15.4)
--- NOTE | 2016-09-28 14:06 | Nephrology Progress Note ---
Date of Encounter: 09/28/16 Time of Encounter: 10:00 Objective - Vital Signs Vital signs: Vital Signs Temp Pulse Resp BP Pulse Ox 09/28/16 12:00 53 18 110/89 93 09/28/16 11:26 98.2 F 53 18 110/59 93 09/28/16 10:58 58 95 09/28/16 09:17 53 18 94 09/28/16 07:52 98.0 F 52 18 101/56 94 09/28/16 07:38 98.0 F 52 18 101/56 94 09/28/16 07:35 95 09/28/16 07:34 50 95 09/28/16 05:14 97.2 F L 51 18 108/56 94 09/28/16 04:55 47 09/28/16 04:32 98.2 F 48 18 110/58 94 09/28/16 02:30 97.8 F 48 18 100/58 96 09/28/16 02:00 97.6 F 48 18 102/64 95 09/28/16 01:00 51 09/28/16 00:59 97.6 F 48 16 99/59 96 09/28/16 00:43 98.1 F 46 18 106/64 96 09/27/16 22:43 97.2 F L 47 15 104/60 09/27/16 22:25 96.8 F L 50 16 102/60 09/27/16 19:50 47 09/27/16 19:41 98.1 F 49 18 98/50 99 Intake and Output 09/27/16 09/28/16 09/28/16 23:59 07:59 15:59 Intake Total 0 / 280 793 / 793 720 / 720 Balance 0 / 280 793 / 793 720 / 720 Intake: Oral 720 / 720 Blood Product 0 / 0 793 / 793 Plasma Unit 250 / 250 [id number] Rbcs Leuko Poor As-1 0 / 0 275 / 275 Unit [id number] Rbcs Leuko Poor As-1 268 / 268 Unit [id number] Other: Meal Lunch Percent of Meal Consumed 0% Weight 218.7 kg 218.6 kg 98.43 kg Blood Glucose* 123 116 Patient Weight 09/28/16 23:59 Weight 98.43 kg - Lab 09/28/16 12:16 09/28/16 01:00 Most recent lab results Calcium 8.7 mg/dL (8.6-10.8) 09/28/16 01:00 Magnesium 1.5 mg/dL (1.6-2.6) L 09/27/16 19:48 - VTE Documentation of Mechanical Device: Intermittent pneumatic compression device Consult Discharge Plan - Plan Referrals: Ward Mcmanus MD [Primary Care Provider] - 10/08/16 2:00 pm ()
--- NOTE | 2016-09-28 14:09 | Nephrology Consult Note ---
Date of Encounter: 09/28/16 Time of Encounter: 10:00 Assessment and Plan (1) FRAN (acute kidney injury) Current Visit: No Status: Acute FRAN likely 2/2 to hypoperfusion in the setting of acute blood loss, hypotension , and dehydration. Patient denies NSAIDS, no recent contrast exposure. Avoid nephrotoxins. Continue IVF with 0.9 NS @ 75mls/hours. EPO not indicated at this time, may consider if concern for ATN. No need for acute dialysis at this time. (2) Acute blood loss anemia Current Visit: Yes Status: Acute Hx of anemia; recent hospitalization 09/07/16 with acute anemia, Hgb 5.7. She was transfused with 3 units PRBC and underwent EGD/colonoscopy which was negative for active bleeding--2 non-bleeding polyps were removed. By discharge, she was re-started on coumadin with lovenox bridging until INR therapeutic. Presents with weakness and bright red blood per rectum, H/H 6.4/20.4 upon presentation. Transfused with 3 units PRBC, 1 unit FFP and vitamin K administered. INR supratherapeutic upon admission, 5.0; some improvement at 2.9. Per reviewing chart, GI planning for colonscopy in the AM. Holding coumadin given recurrent GI bleed. Patient/family aware of increased risk for CVA. (3) Hypotension Current Visit: Yes Status: Acute BP on prevous admission approx 150/80, BP noted to be 92/45 on this admission. BP has since improved with volume repletion. Qualifiers: Hypotension type: unspecified hypotension type Qualified Code(s): I95.9 - Hypotension, unspecified (4) GI bleed Current Visit: Yes Status: Acute GI consulted, holding coumadin and planning colonoscopy tomorrow. Qualifiers: GI bleed type/associated pathology: unspecified gastrointestinal hemorrhage type Qualified Code(s): K92.2 - Gastrointestinal hemorrhage, unspecified (5) Thrombus of left atrial appendage Current Visit: Yes Status: Chronic Cardiology following. Left atrial appendage thrombus on JAUN fro Jul 2016. Treatment with coumadin; GI and cardiology agree to holding coumadin for acute GI bleed. (6) Supratherapeutic INR Current Visit: Yes Status: Acute INR 5>2.9 Patient received 3 units pRBCs, 1 unit platelets, and vitamin K. Continue to monitor. History of Present Illness - Reason for Consult Consult date: 09/28/16 Acute Kidney Injury Requesting physician: Pretty Donnelly - Chief Complaint weakness, dyspnea - History of Present Illness Ms. Hernández is a 65 year old female with PMH significant for breast cancer, CAD s/ p CABG (1994), HTN, HLD, DMII, atrial flutter (on coumadin), and COSTA thrombus who presented to the ED after an episode of GI bleeding that started yesterday. She reports bright red blood per rectum. Associated symptoms include weakness, fatigue, and several pre-syncopal episodes. Reported fall yesterday prior to admission; head CT done in the ED was negative. Patient recently hospitalized on 09/07/16 with similar symptoms, Hgb of 5.7 at that time. Nephrology consulted with concern for FRAN as patient's Cr at baseline is approx 1.0, however, upon this admission patient's Creatinine found to be elevated at 3.81. Patient denies any history of kidney disease, denies any family history of CKD or dialysis, denies NSAID use, denies tobacco or alcohol use. Past Med Surg Social Fam HX - Past Medical History Medical history: asthma, cancer, CHF, diabetes, GI bleed, hyperlipidemia, hypertension Psychiatric history: anxiety - Past Surgical History Surgical History: appendectomy, breast surgery, coronary bypass (CABG) - Social History Smoking Status: Former smoker Smokeless Tobacco Status: No Alcohol use: none Drug use: none - Family History Father Adopted: No Family Member Ethnicity: Non- Living Status: Hx Family Cardiac Disorders: Yes Hx Family Respiratory Disorders: Yes Hx Family Cancer: Yes (Liver cancer) Hx Family GI Disorders: No Hx Family Endocrine Disorder: Yes Hx Family Neuromuscular Disorders: No Hx Family Neurologic Disorders: No Hx Family HEENT Disorders: No Hx Family Autoimmune Disorders: No Medications and Allergies Cholecalciferol (D-3) [Vitamin D] 2,000 unit PO DAILY 04/18/16 [History] Diphenoxylate/Atropine [Lomotil 2.5 mg/0.025 mg] 1 tab PO BID PRN 04/18/16 [ History] Gabapentin [Neurontin] 900 mg PO HS 04/18/16 [History] Losartan/Hydrochlorothiazide [Hyzaar 100-12.5 Tablet] 1 tab PO DAILY 04/18/16 [ History] Metformin HCl [Metformin HCl ER] 500 mg PO BID 04/18/16 [History] Aspirin Enteric Coated [Aspirin EC] 81 mg PO DAILY #30 tablet.dr 06/14/16 [Rx] Digoxin [Lanoxin] 0.125 mg PO DAILY #30 tablet 06/14/16 [Rx] Citalopram Hydrobromide [Celexa] 30 mg PO DAILY 07/23/16 [History] Metoprolol Succinate 200 mg PO BID 07/23/16 [History] Warfarin [Coumadin] 2 mg PO SUFR 07/23/16 [History] Warfarin [Coumadin] 4 mg PO MOTUWETHSA 07/23/16 [History] Diltiazem CD (24hr) [Cardizem CD] 120 mg PO DAILY #30 cap.er.24h 07/26/16 [Rx] Ferrous Sulfate 325 mg PO BIDWM #30 tablet 09/10/16 [Rx] Albuterol Sulfate [Albuterol Inhaler] 2 puff IH Q4H PRN 09/27/16 [History] Amoxicillin [Amoxil] 500 mg PO QID 09/27/16 [History] Atorvastatin Calcium [Lipitor] 20 mg PO HS 09/27/16 [History] Clarithromycin [Biaxin] 500 mg PO BID 09/27/16 [History] Fluticasone/Salmeterol [Advair Hfa 230-21 Mcg Inhaler] 2 puff IH BID 09/27/16 [ History] Pantoprazole Sodium [Protonix] 40 mg PO BID 09/27/16 [History] Allergies No Known Allergies Allergy (Verified 06/12/16 09:27) Review of Systems Constitutional: fatigue, weakness Nose, mouth and throat: dizziness Cardiovascular: dyspnea, dyspnea on exertion, edema, lightheadedness, syncope, no chest pain Respiratory: dyspnea, dyspnea on exertion Gastrointestinal: hematochezia, nausea, vomiting Neurological: confusion, dizziness, weakness Exam - Vital Signs Vital signs: Initial Vital Signs Temp Pulse Resp BP Pulse Ox 97.7 F 52 16 92/45 93 09/27/16 12:41 09/27/16 12:41 09/27/16 12:41 09/27/16 12:41 09/27/16 12:41 Vital Signs - Last 8 Hours Temp Pulse Resp BP Pulse Ox 09/28/16 12:00 53 18 110/89 93 04/25/17 11:26 98.2 F 53 18 110/59 93 09/28/16 10:58 58 95 09/28/16 09:17 53 18 94 09/28/16 07:52 98.0 F 52 18 101/56 94 09/28/16 07:38 98.0 F 52 18 101/56 94 09/28/16 07:35 95 09/28/16 07:34 50 95 Intake and Output 09/27/16 09/28/16 09/28/16 23:59 07:59 15:59 Intake Total 0 / 280 793 / 793 720 / 720 Balance 0 / 280 793 / 793 720 / 720 Intake: Oral 720 / 720 Blood Product 0 / 0 793 / 793 Plasma Unit 250 / 250 [id number] Rbcs Leuko Poor As-1 0 / 0 275 / 275 Unit [id number] Rbcs Leuko Poor As-1 268 / 268 Unit [id number] Other: Meal Lunch Percent of Meal Consumed 0% Weight 218.7 kg 218.6 kg 98.43 kg Blood Glucose* 123 116 Patient Weight 09/28/16 23:59 Weight 98.43 kg - General Appearance General appearance: well-developed, well-nourished, appears started age, obese EENT: ATNC, mucous membranes dry, hearing intact, vision intact Neck: supple Respiratory: clear Cardiology: edema (1+ BLE), regular rate, regular rhythm Gastrointestinal: no tenderness, no guarding Integumentary: no rash, warm and dry Neurologic: no focal deficit, alert and oriented x3 Musculoskeletal: no deformities, no erythema, no cyanosis Psychiatric: mood/affect appropriate (somewhat anxious), cooperative Results - Lab Results 09/28/16 12:16 09/28/16 01:00 Most recent lab results Calcium 8.7 mg/dL (8.6-10.8) 09/28/16 01:00 Magnesium 1.5 mg/dL (1.6-2.6) L 09/27/16 19:48 Consult Discharge Plan - Plan Referrals: Ward Mcmanus MD [Primary Care Provider] - 10/08/16 2:00 pm ()
--- NOTE | 2016-09-28 14:48 | Cardiology Consult Note ---
Date of Encounter: 09/28/16 Time of Encounter: 14:40 Assessment and Plan (1) Atrial flutter Current Visit: Yes Status: Acute Hx of poorly controlled atrial flutter, now in SR. Has not been a candidate for rhythm control strategy in the past due to COSTA thrombus (coumadin therapy). ECG upon presentation shows SB, HR 52. 12 hour tele: avg HR since admission = 53 SR. Stop po digoxin. Agree with holding home cardizem and toprol XL for now, will continue to monitor telemetry and adjust medications accordingly. Qualifiers: Atrial flutter type: typical Qualified Code(s): I48.3 - Typical atrial flutter (2) Thrombus of left atrial appendage Current Visit: Yes Status: Chronic Most recent JAUN 2016 demonstrated EF 40% with left atrial appendage thrombus. Second hospitalization within a few weeks d/t acute blood loss anemia requiring transfusion. Agree with stopping coumadin; resume if able when H/H stable. Patient/family aware of increased risk for CVA. Will obtain TTE. (3) Acute blood loss anemia Current Visit: Yes Status: Acute Hx of anemia; recent hospitalization 09/07/16 with acute anemia, Hgb 5.7. She was transfused with 3 units PRBC and underwent EGD/colonoscopy which was negative for active bleeding--2 non-bleeding polyps were removed. By discharge, she was re-started on coumadin with lovenox bridging until INR therapeutic. Of note, Coumadin followed by [facility]. Presents with weakness and bright red blood per rectum, H/H 6.4/20.4 upon presentation. She was transfused with 3 units PRBC, 1 unit FFP and vitamin K administered. INR supratherapeutic upon admission, 5.0. GI following, feels polyps may be source of bleeding, plan for colonscopy in the AM. Agree with holding coumadin given recurrent GI bleed. Patient/family aware of increased risk for CVA. (4) Elevated troponin Current Visit: Yes Status: Acute Mild, adynamic troponin elevation in the setting of acute blood loss anemia and acute renal failure. Likely secondary to demand ischemia. She is chest pain free. (5) ARF (acute renal failure) Current Visit: Yes Status: Acute Nephrology consulted and following. Digoxin/ARB stopped. On IVF. Qualifiers: Acute renal failure type: unspecified Qualified Code(s): N17.9 - Acute kidney failure, unspecified Discussion w patient/family: The assessment and plan as outlined above was discussed with the patient and/or family members who expressed understanding and agreement. All questions were answered. Thank you for involving us in the care of your patient. Please call with any questions. The patient will be discussed and reviewed with Dr. You; changes to be made accordingly. History of Present Illness Consult date: 09/28/16 Requesting physician: Amber Carvajal Consult reason: Aflutter, anemia Chief complaint: Weakness History of present illness: Ms. Hernández is a 65 year old female with PMH significant for CAD s/p CABG (1994), HTN, DMII, atrial flutter (coumadin), and COSTA thrombus who presented to the ED after an episode of GI bleeding that started yesterday. She reports bright red blood per rectum. Associated symptoms include weakness, fatigue, and several pre -syncopal episodes. Reported fall yesterday prior to admission--Head CT was negative. Of note, she was recently hospitalized on 09/07/16 with similar symptoms , HgB was 5.7 at that time--had GI work-up which was negative for acute bleed. She was transfused with 3 units PRBC, coumadin re-started with lovenox bridging. Upon arrival to ED, ECG showed SB HR 42. She was noted to have acute renal failure. Recent CV testing includes: TTE 06/10/16: TTE LVEF 40%, global LV hypokinesis. JAUN 06/11/16: EF 40-45%, small echodensity suggestive of LA appendage thrombus JAUN 07/16/16: EF 40-45%, left atrial appendage thombus noted Past Med Surg Social Fam HX - Past Medical History Medical history: asthma, cancer, CHF, diabetes, GI bleed, hyperlipidemia, hypertension Psychiatric history: anxiety - Past Surgical History Surgical History: appendectomy, breast surgery, coronary bypass (CABG) - Social History Smoking Status: Former smoker Smokeless Tobacco Status: No Alcohol use: none Drug use: none - Family History Father Adopted: No Family Member Ethnicity: Non- Living Status: Hx Family Cardiac Disorders: Yes Hx Family Respiratory Disorders: Yes Hx Family Cancer: Yes (Liver cancer) Hx Family GI Disorders: No Hx Family Endocrine Disorder: Yes Hx Family Neuromuscular Disorders: No Hx Family Neurologic Disorders: No Hx Family HEENT Disorders: No Hx Family Autoimmune Disorders: No Medications and Allergies Cholecalciferol (D-3) [Vitamin D] 2,000 unit PO DAILY 04/18/16 [History] Diphenoxylate/Atropine [Lomotil 2.5 mg/0.025 mg] 1 tab PO BID PRN 04/18/16 [ History] Gabapentin [Neurontin] 900 mg PO HS 04/18/16 [History] Losartan/Hydrochlorothiazide [Hyzaar 100-12.5 Tablet] 1 tab PO DAILY 04/18/16 [ History] Metformin HCl [Metformin HCl ER] 500 mg PO BID 04/18/16 [History] Aspirin Enteric Coated [Aspirin EC] 81 mg PO DAILY #30 tablet.dr 06/14/16 [Rx] Digoxin [Lanoxin] 0.125 mg PO DAILY #30 tablet 06/14/16 [Rx] Citalopram Hydrobromide [Celexa] 30 mg PO DAILY 07/23/16 [History] Metoprolol Succinate 200 mg PO BID 07/23/16 [History] Warfarin [Coumadin] 2 mg PO SUFR 07/23/16 [History] Warfarin [Coumadin] 4 mg PO MOTUWETHSA 07/23/16 [History] Diltiazem CD (24hr) [Cardizem CD] 120 mg PO DAILY #30 cap.er.24h 07/26/16 [Rx] Ferrous Sulfate 325 mg PO BIDWM #30 tablet 09/10/16 [Rx] Albuterol Sulfate [Albuterol Inhaler] 2 puff IH Q4H PRN 09/27/16 [History] Amoxicillin [Amoxil] 500 mg PO QID 09/27/16 [History] Atorvastatin Calcium [Lipitor] 20 mg PO HS 09/27/16 [History] Clarithromycin [Biaxin] 500 mg PO BID 09/27/16 [History] Fluticasone/Salmeterol [Advair Hfa 230-21 Mcg Inhaler] 2 puff IH BID 09/27/16 [ History] Pantoprazole Sodium [Protonix] 40 mg PO BID 09/27/16 [History] Allergies No Known Allergies Allergy (Verified 06/12/16 09:27) All Systems Review: A 10-system review of systems was performed and is negative for pertinent findings except as documented above in the HPI. Physical Examination Vital Signs, Last 4 Hours Temp Pulse Resp BP Pulse Ox 09/28/16 12:00 53 18 110/89 93 09/28/16 11:26 98.2 F 53 18 110/59 93 09/28/16 10:58 58 95 Results 09/28/16 12:16 09/28/16 01:00 Lab Results 09/27/16 09/27/16 09/28/16 19:48 19:48 01:00 WBC Hgb Hct Plt Count INR APTT Sodium Potassium Chloride Carbon Dioxide BUN Creatinine Glucose Calcium Magnesium 1.5 L Troponin I 0.06 H* 0.06 H* 09/28/16 09/28/16 09/28/16 01:00 01:00 06:46 WBC 9.5 Hgb 8.1 L D 9.0 L Hct 26.2 L 28.6 L Plt Count 242 INR APTT Sodium 137 Potassium 4.3 Chloride 103 Carbon Dioxide 22 BUN 36 H Creatinine 3.81 H Glucose 95 Calcium 8.7 Magnesium Troponin I 09/28/16 09/28/16 06:46 12:16 WBC Hgb 8.9 L Hct 28.2 L Plt Count INR 2.9 APTT 40.3 H Sodium Potassium Chloride Carbon Dioxide BUN Creatinine Glucose Calcium Magnesium Troponin I Consult Discharge Plan - Plan Referrals: Ward Mcmanus MD [Primary Care Provider] - 10/08/16 2:00 pm ()
[2016-09-28] MEDS ORDERED: SODIUM CHLORIDE/NAHCO3/KCL/PEG 4,000 ML SOLN.RECON PO ONE (17:00)
[2016-09-28] MEDS: Pantoprazole 40 MG VIAL IVP SCH (17:44)
[2016-09-28 18:49] LABS: Bilirubin,Urine Small (Negative); Blood,Urine Negative (Negative); Clarity,Urine Turbid (Clear); Color,Urine Dark Yellow (Yellow); Glucose,Urine (UA) 100 mg/dL (Normal); Ketones,Urine Trace mg/dL (Negative); Leukocyte Esterase,Urine Moderate (Negative); Nitrite,Urine Negative (Negative); PH,Urine 5.5 pH Units (5.0-8.0); Protein,Urine >=1000 mg/dL (Neg-Trace); Specific Gravity,Urine > 1.030 (1.010-1.025); Urobilinogen,Urine Normal (Normal)
[2016-09-28 18:51] LABS: Squamous Epithelial Cell,Urine Many per lpf (None-Few); WBC,Urine TNTC per hpf (0-3)
--- NOTE | 2016-09-28 19:10 | Internal Med Progress Note ---
Date of Encounter: 09/28/16 Time of Encounter: 09:00 - Assessment and plan (1) GI bleed Current Visit: No Status: Acute Assessment and plan: Supratherapeutic INR. Low hemoglobin with positive guaiac test. Consider GI bleeding caused by anticoagulation use. - GI consult, no plan for EGD or colonoscopy because patient just has both of them 3 weeks ago. - Hold anticoagulation. FFP and vitamin K was given on admission. - Patient has a blood transfusion, H&H is stable after transfusion. - IV PPI - Continue closely monitor H&H. Qualifiers: GI bleed type/associated pathology: unspecified gastrointestinal hemorrhage type Qualified Code(s): K92.2 - Gastrointestinal hemorrhage, unspecified (2) Atrial flutter Current Visit: Yes Status: Acute Assessment and plan: Rate is well controlled. Will hold the digoxin because of renal failure. Also hold Coumadin because of GI bleeding. Cardio consult appreciated. Qualifiers: Atrial flutter type: typical Qualified Code(s): I48.3 - Typical atrial flutter (3) Hypertension Current Visit: No Status: Chronic Assessment and plan: BP is not high. BP medication is on hold now. Qualifiers: Hypertension type: essential hypertension Qualified Code(s): I10 - Essential (primary) hypertension (4) Diabetes mellitus Current Visit: No Status: Chronic Assessment and plan: Sliding scale coverage Qualifiers: Diabetes mellitus type: type 2 Diabetes mellitus complication status: with unspecified complications Diabetes mellitus half-way insulin use: without terminal gauger use Qualified Code(s): E11.8 - Type 2 diabetes mellitus with unspecified complications (5) Anemia Current Visit: No Status: Acute Assessment and plan: Due to acute blood loss caused by GI bleeding. Improved after transfusion. Qualifiers: Anemia type: other cause Other causes of anemia: acute posthemorrhagic Qualified Code(s): D62 - Acute posthemorrhagic anemia (6) CAD (coronary artery disease) Current Visit: No Status: Chronic Assessment and plan: Continue home medications. Mild elevated troponin was considered demand ischemia. Cardio consult appreciated. Qualifiers: Coronary Disease-Associated Artery/Lesion type: bypass graft [place] vs. transplanted heart: [place] heart Associated angina: without angina Qualified Code(s): I25.810 - Atherosclerosis of coronary artery bypass graft(s) without angina pectoris (7) Thrombus of left atrial appendage Current Visit: Yes Status: Chronic Assessment and plan: Hold anticoagulation now. Cardio consult appreciated. (8) Chronic kidney disease Current Visit: No Status: Chronic Assessment and plan: Significantly elevated creatinine from baseline, probably due to GI bleeding and low volume status. - Continue IV fluid. - Nephrology consult appreciated. - Follow up her renal function. Qualifiers: Chronic kidney disease stage: stage 3 (moderate) Qualified Code(s): N18.3 - Chronic kidney disease, stage 3 (moderate) (9) DVT prophylaxis Current Visit: No Status: Acute Assessment and plan: EPCD, no anticoagulation because of GI bleeding. - Time Spent With Patient 25 - 35 minutes - Subjective Interval history: Patient is a 65 year old female admitted for chest pain. Past medical history is significant for COPD, breast cancer, CHF, diabetes, A flutter and COSTA thrombus on coumadin. Patient was found low hemoglobin and a positive guaiac test in the emergency room. Patient was seen and examined, she is awake alert, oriented 3. No further chest pain or shortness of breath. Vitals are stable. Cardio, nephro, and a GI consult appreciated. Hemoglobin is stable after transfusion. We will continue hold coumadin now. Follow-up H&H - Constitutional Vitals: Temp Pulse Resp BP Pulse Ox 98.0 F 57 18 119/66 93 09/28/16 16:01 09/28/16 16:01 09/28/16 16:01 09/28/16 16:01 09/28/16 16:01 General appearance: Present: A&O X 3, answers questions appropriately - Head Head exam: Present: atraumatic, normocephalic - Eye Eye exam: Present: PERRL, conjuntiva pink, sclera anicteric Pupils: Present: PERRL - Neck Neck exam general surgery: Present: supple, trachea midline. Absent: lymphadenopathy - Respiratory Respiratory exam: Present: CTAB. Absent: accessory muscle use, rales, rhonchi, wheezes - Cardiovascular Cardiovascular exam: Present: RRR, +S1, +S2. Absent: diastolic murmur, gallop, rubs, systolic murmur - GI/Abdominal GI/Abdominal exam: Present: normal bowel sounds, soft, no peritoneal signs. Absent: distended, tenderness - Extremities Exam Extremities exam: Present: warm, radial pulses palpable and symetrical. Absent : calf tenderness, cyanotic, pedal edema - Neurological Exam Neurological exam: Present: CN II-XII intact, oriented X3, no focal deficits. Absent: pronater drift, facial droop, speech deficit - Skin Skin exam: Present: dry, intact Internal Medicine: Result - Labs CBC & Chem 7: 09/28/16 12:16 09/28/16 01:00 Labs: Short CBC 09/28/16 09/28/16 09/28/16 Range/Units 01:00 06:46 12:16 WBC 9.5 (4.3-11.1) K/mcL Hgb 8.1 L D 9.0 L 8.9 L (11.5-15.4) g/dL Hct 26.2 L 28.6 L 28.2 L (35.3-44.9) % Plt Count 242 (140-400) K/mcL Neutrophils # 5.6 (1.6-8.9) K/mcL BMP 09/28/16 01:00 Sodium 137 Potassium 4.3 Chloride 103 Carbon Dioxide 22 BUN 36 H Creatinine 3.81 H Glucose 95 Calcium 8.7 Cardiac Enzymes 09/27/16 09/28/16 Range/Units 19:48 01:00 Troponin I 0.06 H* 0.06 H* (0-0.03) ng/mL Urine 09/28/16 Range/Units 18:30 Urine Color Dark Yellow (Yellow) Urine Clarity Turbid A (Clear) Urine pH 5.5 (5.0-8.0) pH Units Ur Specific [place] > 1.030 H (1.010-1.025) Urine Protein >=1000 H (Neg-Trace) mg/dL Urine Glucose (UA) 100 H (Normal) mg/dL - ABG Interpretation ABG results: PT/INR, D-dimer PT 31.8 Seconds (9.4-12.1) H 09/28/16 06:46 - VTE Documentation of Mechanical Device: Intermittent pneumatic compression device Consult Discharge Plan - Plan Referrals: Ward Mcmanus MD [Primary Care Provider] - 10/08/16 2:00 pm ()
[2016-09-28 19:18] LABS: Amorphous Sediment,Urine Moderate (Few); Bacteria,Urine Moderate per hpf (None-Few); Calcium Oxalate Crystals,Urine Present; Hyaline Casts,Urine Few per lpf (None-Few); Mucus,Urine Few (Few); RBC,Urine 0-3 per hpf (0-3); Yeast,Urine Few per hpf (None Seen)
[2016-09-28] MEDS: Gabapentin 300 MG CAPSULE PO SCH (20:52)
[2016-09-28] MEDS: Budesonide/Formoterol 160/4.5 MDI IH SCH (21:59)
[2016-09-29 05:15] LABS: Basophils % 0.6 %; Eosinophils # 0.1 K/mcL (0.0-0.6); Hematocrit 27.6 % (35.3-44.9); Hemoglobin 8.5 g/dL (11.5-15.4); Immature Granulocytes % 1.3 % (0-4); Lymphocytes # 1.5 K/mcL (0.6-4.6); Lymphocytes % 21.6 %; Mean Corpuscular HGB Conc 30.8 g/dL (31.6-35.5); Mean Corpuscular Hemoglobin 27.2 pg (28.0-33.3); Mean Corpuscular Volume 88.2 fL (83.0-100.0); Mean Platelet Volume 10.6 fL (9.4-12.4); Monocytes # 1.1 K/mcL (0.0-1.3); Monocytes % 15.6 %; Neutrophils # 4.2 K/mcL (1.6-8.9); Platelet Count 185 K/mcL (140-400); Red Blood Count 3.13 M/mcL (3.82-4.97); Red Cell Distribution Width 17.6 % (11.5-14.5); Segmented Neutrophils % 59.9 %
[2016-09-29 05:26] LABS: Calcium 8.6 mg/dL (8.6-10.8); Potassium 4.1 mEq/L (3.5-4.5)
[2016-09-29] MEDS: Pantoprazole 40 MG VIAL IVP SCH ×2 (06:04→18:20)
[2016-09-29] MEDS: 0.9 % Sodium Chloride 1,000 ML IVC SCH ×2 (06:09→20:04)
[2016-09-29] MEDS: Cholecalciferol (D-3) 1,000 UNIT TABLET PO SCH (07:58)
[2016-09-29] MEDS: Insulin LISPRO 300 UNITS/3 ML VIAL SQ SCH ×4 (07:59→21:35)
--- NOTE | 2016-09-29 09:36 | Cardiology Progress Note ---
Date of Encounter: 09/29/16 Time of Encounter: 08:30 Assessment and Plan (1) Atrial flutter Current Visit: Yes Status: Acute Hx of poorly controlled atrial flutter, now in SR. Has not been a candidate for rhythm control strategy in the past due to COSTA thrombus (coumadin therapy). ECG upon presentation shows SB, HR 52. 12 hour tele: avg HR = 66 SR. Brief episode of PAF overnight. HR 70's upon exam. Stop po digoxin. Agree with holding home cardizem and toprol XL for now, will continue to monitor telemetry and adjust medications accordingly; may need to re -start betablocker at decreased dose. Qualifiers: Atrial flutter type: typical Qualified Code(s): I48.3 - Typical atrial flutter (2) Thrombus of left atrial appendage Current Visit: Yes Status: Chronic Most recent JAUN 2016 demonstrated EF 40% with left atrial appendage thrombus. Second hospitalization within a few weeks d/t acute blood loss anemia requiring transfusion. Agree with stopping coumadin; resume if able when H/H stable. Patient/family aware of increased risk for CVA. TTE pending. (3) Acute blood loss anemia Current Visit: Yes Status: Acute Hx of anemia; recent hospitalization 09/07/16 with acute anemia, Hgb 5.7. She was transfused with 3 units PRBC and underwent EGD/colonoscopy which was negative for active bleeding--2 non-bleeding polyps were removed. By discharge, she was re-started on coumadin with lovenox bridging until INR therapeutic. Of note, Coumadin followed by [facility]. Presents with weakness and bright red blood per rectum, H/H 6.4/20.4 upon presentation. She was transfused with 3 units PRBC, 1 unit FFP and vitamin K administered. INR supratherapeutic upon admission, 5.0--now stable. GI following, feels bleeding may be secondary to polyps. No plan for repeat colonoscopy or EGD at this time. Agree with holding coumadin given recurrent GI bleed. Patient/family aware of increased risk for CVA. (4) Elevated troponin Current Visit: Yes Status: Acute Mild, adynamic troponin elevation in the setting of acute blood loss anemia and acute renal failure. Likely secondary to demand ischemia. She is chest pain free. (5) ARF (acute renal failure) Current Visit: Yes Status: Acute Nephrology consulted and following. SCr continues to worsen. Digoxin/ARB stopped. On IVF. Qualifiers: Acute renal failure type: unspecified Qualified Code(s): N17.9 - Acute kidney failure, unspecified Discussion w patient/family: The assessment and plan as outlined above was discussed with the patient and/or family members who expressed understanding and agreement. All questions were answered. Thank you for involving us in the care of your patient. Please call with any questions. The patient will be discussed and reviewed with Dr. You; changes to be made accordingly. Subjective Principal diagnosis: ARF, acute blood loss anemia Interval history: Seen and examined earlier this AM. Reports she is feeling much better today. Denies melena or hematochezia. Objective Vital Signs, Last 4 Hours Temp Pulse Resp BP Pulse Ox 09/29/16 09:17 93 09/29/16 08:05 98.0 F 75 16 124/74 92 09/29/16 06:43 98.0 F 67 17 124/74 91 General: Conversant, No Apparent Distress HEENT: Atraumatic, Normocephaly, Mucus Membranes Moist Cardiac: Reg Rate and Rhythm, Normal S1 and S2 Lungs: Normal Breath Sounds Neuro: Alert and responsive Abdomen: Soft Skin: No rashes noted on visualized skin Musculoskeletal: No Chest Wall Tenderness Extremities: No Edema, Normal Pulses Results 09/29/16 04:07 09/29/16 04:07 Lab Results 09/28/16 09/29/16 09/29/16 12:16 04:07 04:07 WBC Hgb 8.9 L Hct 28.2 L Plt Count INR 2.0 Sodium 135 L Potassium 4.1 Chloride 101 Carbon Dioxide 22 BUN 45 H Creatinine 5.36 H Glucose 123 H Calcium 8.6 09/29/16 04:07 WBC 6.9 Hgb 8.5 L Hct 27.6 L Plt Count 185 INR Sodium Potassium Chloride Carbon Dioxide BUN Creatinine Glucose Calcium - Imaging and Cardiology Echo: pending, report reviewed - EKG Interpretation EKG results cardiology: personally reviewed - VTE Documentation of Mechanical Device: Intermittent pneumatic compression device Consult Discharge Plan - Plan Referrals: Ward Mcmanus MD [Primary Care Provider] - 10/08/16 2:00 pm ()
--- NOTE | 2016-09-29 10:25 | ECHO - Doppler Report ---
Echocardiogram Name: Cass Hernández Date of Study: 09/28/2016 Date: 1950 Ht: 65.0 in Medical Record#: [id number] Age: 65 Wt: 217.0 lb Gender: Female BSA: 2.05 Order #: [id number] Location: [facility] Room #: 2N15 Reading Physician: Brad Suárez DO, MANUEL OCAMPO Information Security Architect: Sisi Hogue Ordering Physician: Eleni Edge CNP Primary Physician: Ward Mcmanus MD Indications: Hx of COSTA thrombus Impressions: LVEF 60%. Normal LV chamber size, wall thickness and function. Indeterminate diastolic function. Normal right ventricular structure and function. Moderately dilated left atrium. Mild aortic sclerosis. Mean gradient 10 mmHg. Mild mitral regurgitation. Moderate tricuspid regurgitation. No pulmonary hypertension. Compared to prior reports, LVEF has improved. Left atrial appendage is not easily visualized by TTE. Consider JAUN if clinically necessary. Left Ventricular Wall Motion: Rest Echo Findings All wall segments showed normal motion. Findings: Study Quality * Technically adequate exam. ECG Findings * Difficult to determine rhythm. Left Ventricle * LVEF 60%. * Normal LV chamber size, wall thickness and function. * Indeterminate diastolic function. Right Ventricle * Normal right ventricular structure and function. Left Atrium * Moderately dilated left atrium. Right Atrium * Mildly dilated right atrium. Interatrial Septum * Interatrial septum not well evaluated. Aortic Valve * Trileaflet aortic valve. * Mildly sclerotic aortic valve leaflets. * Trace aortic regurgitation. * Mild aortic sclerosis. Mean gradient 10 mmHg. Mitral Valve * Mildly thickened mitral valve leaflets. * Mild mitral annular calcification * Mild mitral regurgitation. * No mitral stenosis. Tricuspid Valve * Normal tricuspid valve structure. * Moderate tricuspid regurgitation. * No pulmonary hypertension. Pulmonic Valve * Normal pulmonic valve structure and function. * No pulmonic regurgitation. Aorta * Normally sized aortic root. Pericardium * The pericardium appears normal. IVC * The IVC is not well evaluated. Pulmonary Artery * Pulmonary artery not well visualized. History Hypertension Diabetes Hypercholesteremia Family History of CAD History of CAD/PTCA Myocardial Infarction Coronary Artery Bypass Graft Congestive Heart Failure 07/16/2016 a Previous Echo was performed. Measurements: BP: 119/ 66 2D Normal Values RVIDd: 3.90 cm <2.7 cm IVSd: 1.10 cm 0.6 - 1.0 cm LVIDd: 4.80 cm 3.7 - 5.6 cm LVPWd: 1.00 cm 0.6 - 1.1 cm LVIDs: 3.30 cm 1.5 - 3.6 cm AO: 2.60 cm < 4.0 cm LA: 4.50 cm 2.0 - 4.0cm %FS: 31.30 cm >25 % LVOT Diam: 2.00 cm LA volume: 74 Mitral Valve Peak E:1.38 m/sec Peak E' Lat Noam:12.1 cm/s Peak E' Med Noam:9.46 cm/s E/E' Lat Ratio:11.4 E/E' Med Ratio:14.6 LVOT Peak Noam:1.46 m/sec Mean Noam:.93 m/sec Peak Grad:9.00 mmHg Mean Grad:4.00 mmHg Aortic Valve Peak Noam:2.37 m/sec Mean Noam:1.48 m/sec Peak Grad:22.00 mmHg Mean Grad:10.00 mmHg Valve Area:2.00 cm2 Tricuspid Valve TV Regurg Peak Grad: 29.00mmHg TV Regurg Peak Noam: 2.69m/sec Updated by Brad Suárez DO, FACIke, GRACE JACKSON on 09/29/2016 10:18:16 AM electronically signed on 09/29/2016 10:19:56 AM with status of Final Wall Motion Duong: 1=Normal, 2=Hypokinesis, 3=Akinesis, 4=Dyskinesis, 5=Aneurysmal, 6=Hyperkinetic, X=Not Visualized (Blank)=Missing
--- NOTE | 2016-09-29 10:53 | Nephrology Progress Note ---
Date of Encounter: 09/29/16 Time of Encounter: 09:25 - Assessment and Plan (1) FRAN (acute kidney injury) Current Visit: No Status: Acute Oligouric FRAN likely 2/2 to hypoperfusion in the setting of acute blood loss, hypotension, and dehydration. Patient denies NSAIDS, no recent contrast exposure. Renal US: No hydronephrosis. Focal nodule of R adrenal gland, noted in prior CT. Plan: Avoid nephrotoxins. Continue IVF with 0.9 NS @ 75mls/hours. No need for acute dialysis at this time, but may consider if patient continues on current pathway. Pending urine Na and Cr ordered yesterday, will calculate F.E.Na. Will discuss with attending the following: Concern for ATN vs nephrotic syndrome with proteinuria. Consider checking complement factors (C3/C4), urine protein/Cr ratio. (2) Proteinuria Current Visit: Yes Status: Acute UA with protein >=1000 See plan for FRAN Qualifiers: Proteinuria type: unspecified Qualified Code(s): R80.9 - Proteinuria, unspecified (3) Acute blood loss anemia Current Visit: Yes Status: Acute Hx of anemia; recent hospitalization 09/07/16 with acute anemia, Hgb 5.7. She was transfused with 3 units PRBC and underwent EGD/colonoscopy which was negative for active bleeding--2 non-bleeding polyps were removed. By discharge, she was re-started on coumadin with lovenox bridging until INR therapeutic. Presented this admission with weakness and bright red blood per rectum, H/H 6.4/ 20.4 upon presentation. Transfused with 3 units PRBC, 1 unit FFP and vitamin K administered. Hgb 8.5 today. INR supratherapeutic upon admission, 5.0; improvement at 2.0 today. GI no longer planning for colonoscopy as patient had a colonoscopy a few weeks ago. More concerned about supratheraputic INR Holding coumadin given recurrent GI bleed. Patient/family aware of increased risk for CVA. (4) Hypotension Current Visit: Yes Status: Resolved Improved with holding cardiac meds (cardizem and toprol) and with volume expansion with IVFs. Qualifiers: Hypotension type: unspecified hypotension type Qualified Code(s): I95.9 - Hypotension, unspecified (5) GI bleed Current Visit: Yes Status: Acute See plan for anemia. Holding coumadin. GI consulted. Qualifiers: GI bleed type/associated pathology: unspecified gastrointestinal hemorrhage type Qualified Code(s): K92.2 - Gastrointestinal hemorrhage, unspecified (6) Thrombus of left atrial appendage Current Visit: Yes Status: Chronic Cardiology following. Left atrial appendage thrombus on JAUN from Jul 2016. Treatment previously with coumadin; GI and cardiology agree to holding coumadin for acute GI bleed. Planning for JAUN (7) Supratherapeutic INR Current Visit: Yes Status: Resolved Improved. INR 5.0>2.0 Subjective Principal diagnosis: ARF, acute blood loss anemia Interval history: Patient's daughter present at bedside. Patient seen and examined at bedside. She states she feels shaky and weak today. Daughter notes that patient has only had one urination this morning of 150cc. Objective - Vital Signs Vital signs: Vital Signs Temp Pulse Resp BP Pulse Ox 09/29/16 09:17 93 09/29/16 08:05 98.0 F 75 16 124/74 92 09/29/16 06:43 98.0 F 67 17 124/74 91 09/29/16 04:35 97.8 F 66 17 120/68 90 09/29/16 04:05 68 09/28/16 23:59 66 09/28/16 23:29 97.7 F 67 17 93 09/28/16 21:59 16 95 09/28/16 21:07 59 95 09/28/16 19:41 97.5 F L 59 18 122/59 92 09/28/16 16:01 98.0 F 57 18 119/66 93 09/28/16 12:00 53 18 110/89 93 09/28/16 11:26 98.2 F 53 18 110/59 93 09/28/16 10:58 58 95 Intake and Output 09/28/16 09/29/16 09/29/16 23:59 07:59 15:59 Intake Total 1000 / 1000 480 / 480 Output Total 100 / 100 Balance -100 / -100 1000 / 1000 480 / 480 Intake: IV Fluids 1000 / 1000 0.9 % Sodium Chloride 1, 1000 / 1000 000 ML @ 75 mls/hr IVC . [id number] PHONG Rx#: [id number] Oral 480 / 480 Output: Urine 100 / 100 Other: Meal Breakfast Percent of Meal Consumed 100% Weight 99.7 kg Blood Glucose* 136 130 Patient Weight 09/29/16 23:59 Weight 99.7 kg - General Appearance General appearance: Present: well-developed, well-nourished, appears started age EENT: Present: ATNC, mucous membranes moist, hearing intact, vision intact Neck: Present: supple Respiratory: Present: clear Cardiology: Present: edema (trace pedal edema b/l), regular rate, regular rhythm Gastrointestinal: Present: tenderness (RLQ, mild), no guarding Integumentary: Present: no rash, warm and dry Neurologic: Present: no focal deficit, alert and oriented x3, confused (noted to have some confusion at baseline.) Musculoskeletal: Present: no deformities, no erythema, no cyanosis Psychiatric: Present: mood/affect appropriate, cooperative - Lab 09/29/16 04:07 09/29/16 04:07 Most recent lab results Calcium 8.6 mg/dL (8.6-10.8) 09/29/16 04:07 Magnesium 1.5 mg/dL (1.6-2.6) L 09/27/16 19:48 - VTE Documentation of Mechanical Device: Intermittent pneumatic compression device Consult Discharge Plan - Plan Referrals: Ward Mcmanus MD [Primary Care Provider] - 10/08/16 2:00 pm ()
[2016-09-29] MEDS: Budesonide/Formoterol 160/4.5 MDI IH SCH ×2 (10:55→21:39)
--- NOTE | 2016-09-29 17:44 | Internal Med Progress Note ---
Date of Encounter: 09/29/16 Time of Encounter: 10:00 - Assessment and plan (1) GI bleed Current Visit: No Status: Acute Assessment and plan: Supratherapeutic INR. Low hemoglobin with positive guaiac test. Consider GI bleeding caused by anticoagulation use. - GI consult, no plan for EGD or colonoscopy because patient just has both of them 3 weeks ago. - Hold anticoagulation. FFP and vitamin K was given on admission. - Patient has a blood transfusion, H&H is stable after transfusion. - IV PPI - Continue closely monitor H&H. Qualifiers: GI bleed type/associated pathology: unspecified gastrointestinal hemorrhage type Qualified Code(s): K92.2 - Gastrointestinal hemorrhage, unspecified (2) Atrial flutter Current Visit: Yes Status: Acute Assessment and plan: Rate is well controlled. Will hold the digoxin because of renal failure. Also hold Coumadin because of GI bleeding. Cardio consult appreciated. Qualifiers: Atrial flutter type: typical Qualified Code(s): I48.3 - Typical atrial flutter (3) Hypertension Current Visit: No Status: Chronic Assessment and plan: BP is not high. BP medication is on hold now. Qualifiers: Hypertension type: essential hypertension Qualified Code(s): I10 - Essential (primary) hypertension (4) Diabetes mellitus Current Visit: No Status: Chronic Assessment and plan: Sliding scale coverage Qualifiers: Diabetes mellitus type: type 2 Diabetes mellitus complication status: with unspecified complications Diabetes mellitus long-term insulin use: without buttermaker continuous churn use Qualified Code(s): E11.8 - Type 2 diabetes mellitus with unspecified complications (5) Anemia Current Visit: No Status: Acute Assessment and plan: Due to acute blood loss caused by GI bleeding. Improved after transfusion. Qualifiers: Anemia type: other cause Other causes of anemia: acute posthemorrhagic Qualified Code(s): D62 - Acute posthemorrhagic anemia (6) CAD (coronary artery disease) Current Visit: No Status: Chronic Assessment and plan: Continue home medications. Mild elevated troponin was considered demand ischemia. Cardio consult appreciated. Qualifiers: Coronary Disease-Associated Artery/Lesion type: bypass graft [place] vs. transplanted heart: [place] heart Associated angina: without angina Qualified Code(s): I25.810 - Atherosclerosis of coronary artery bypass graft(s) without angina pectoris (7) Thrombus of left atrial appendage Current Visit: Yes Status: Chronic Assessment and plan: Hold anticoagulation now. Cardio consult appreciated. Repeated TTE shows COSTA is not easily visualized. (8) Chronic kidney disease Current Visit: No Status: Chronic Assessment and plan: Significantly elevated creatinine from baseline, probably due to GI bleeding and low volume status. Worsen renal function today (Cr 5.36) - Continue IV fluid. - Nephrology consult appreciated. Will f/u recommendation. - Follow up her renal function. Qualifiers: Chronic kidney disease stage: stage 3 (moderate) Qualified Code(s): N18.3 - Chronic kidney disease, stage 3 (moderate) (9) DVT prophylaxis Current Visit: No Status: Acute Assessment and plan: EPCD, no anticoagulation because of GI bleeding. - Time Spent With Patient 25 - 35 minutes - Subjective Interval history: Patient is a 65 year old female admitted for chest pain. Past medical history is significant for COPD, breast cancer, CHF, diabetes, A flutter and COSTA thrombus on coumadin. Patient was found low hemoglobin and a positive guaiac test in the emergency room. Patient was seen and examined, she is awake alert, oriented 3. No further chest pain or shortness of breath. Vitals are stable. Cardio, nephro, and a GI consult appreciated. Hemoglobin is stable after transfusion. We will continue hold coumadin now. Follow-up H&H. Worsen renal function, will follow nephrology recommendation for further management - Constitutional Vitals: Temp Pulse Resp BP Pulse Ox 97.6 F 76 11 128/62 94 09/29/16 17:34 09/29/16 17:34 09/29/16 17:34 09/29/16 17:34 09/29/16 17:34 General appearance: Present: A&O X 3, answers questions appropriately - Head Head exam: Present: atraumatic, normocephalic - Eye Eye exam: Present: PERRL, conjuntiva pink, sclera anicteric Pupils: Present: PERRL - Neck Neck exam general surgery: Present: supple, trachea midline. Absent: lymphadenopathy - Respiratory Respiratory exam: Present: CTAB. Absent: accessory muscle use, rales, rhonchi, wheezes - Cardiovascular Cardiovascular exam: Present: RRR, +S1, +S2. Absent: diastolic murmur, gallop, rubs, systolic murmur - GI/Abdominal GI/Abdominal exam: Present: normal bowel sounds, soft, no peritoneal signs. Absent: distended, tenderness - Extremities Exam Extremities exam: Present: warm, radial pulses palpable and symetrical. Absent : calf tenderness, cyanotic, pedal edema - Neurological Exam Neurological exam: Present: CN II-XII intact, oriented X3, no focal deficits. Absent: pronater drift, facial droop, speech deficit - Skin Skin exam: Present: dry, intact Internal Medicine: Result - Labs CBC & Chem 7: 09/29/16 04:07 09/29/16 04:07 Labs: Short CBC 09/29/16 Range/Units 04:07 WBC 6.9 (4.3-11.1) K/mcL Hgb 8.5 L (11.5-15.4) g/dL Hct 27.6 L (35.3-44.9) % Plt Count 185 (140-400) K/mcL Neutrophils # 4.2 (1.6-8.9) K/mcL BMP 09/29/16 04:07 Sodium 135 L Potassium 4.1 Chloride 101 Carbon Dioxide 22 BUN 45 H Creatinine 5.36 H Glucose 123 H Calcium 8.6 Urine 09/28/16 Range/Units 18:30 Urine Color Dark Yellow (Yellow) Urine Clarity Turbid A (Clear) Urine pH 5.5 (5.0-8.0) pH Units Ur Specific Ingram > 1.030 H (1.010-1.025) Urine Protein >=1000 H (Neg-Trace) mg/dL Urine Glucose (UA) 100 H (Normal) mg/dL - ABG Interpretation ABG results: PT/INR, D-dimer PT 22.0 Seconds (9.4-12.1) H 09/29/16 04:07 - Impressions Impressions Retroperitoneum Ultrasound 09/28/16 17:00 IMPRESSION: No hydronephrosis noted Nodule is seen superior to the right kidney, likely right adrenal nodule described on prior abdominal CT reports D/ / Wilson Mcrae MD / Wilson Mcrae MD Interpreting Provider: Wilson Mcrae MD - VTE Documentation of Mechanical Device: Intermittent pneumatic compression device Consult Discharge Plan - Plan Referrals: Ward Mcmanus MD [Primary Care Provider] - 10/08/16 2:00 pm ()
[2016-09-29] MEDS: Gabapentin 300 MG CAPSULE PO SCH (19:50)
[2016-09-30] MEDS: Acetaminophen 325 MG TABLET PO PRN (04:16)
[2016-09-30 05:17] LABS: INR 1.6; Prothrombin Time 17.8 Seconds (9.4-12.1)
[2016-09-30 05:20] LABS: Basophils % 0.5 %; Eosinophils # 0.1 K/mcL (0.0-0.6); Eosinophils % 1.3 %; Hematocrit 27.2 % (35.3-44.9); Hemoglobin 8.3 g/dL (11.5-15.4); Lymphocytes # 1.3 K/mcL (0.6-4.6); Lymphocytes % 20.9 %; Mean Corpuscular HGB Conc 30.5 g/dL (31.6-35.5); Mean Corpuscular Hemoglobin 26.9 pg (28.0-33.3); Mean Corpuscular Volume 88.3 fL (83.0-100.0); Mean Platelet Volume 10.9 fL (9.4-12.4); Monocytes % 15.6 %; Neutrophils # 3.7 K/mcL (1.6-8.9); Platelet Count 168 K/mcL (140-400); Red Blood Count 3.08 M/mcL (3.82-4.97); Red Cell Distribution Width 17.8 % (11.5-14.5); Segmented Neutrophils % 60.7 %
[2016-09-30] MEDS: Pantoprazole 40 MG VIAL IVP SCH (05:29)
[2016-09-30 05:40] LABS: Calcium 8.2 mg/dL (8.6-10.8); Magnesium 1.8 mg/dL (1.6-2.6); Phosphorous 4.3 mg/dL (2.3-4.7); Uric Acid 10.1 mg/dL (2.6-6.0)
[2016-09-30] MEDS: Insulin LISPRO 300 UNITS/3 ML VIAL SQ SCH ×4 (07:52→20:54)
[2016-09-30] MEDS: Budesonide/Formoterol 160/4.5 MDI IH SCH ×2 (07:57→20:21)
[2016-09-30] MEDS: Metoprolol XL (24 HR) Succ 25 MG TAB.ER.24H PO SCH (08:51)
[2016-09-30] MEDS: Cholecalciferol (D-3) 1,000 UNIT TABLET PO SCH (08:51)
--- NOTE | 2016-09-30 09:19 | Cardiology Progress Note ---
Date of Encounter: 09/30/16 Time of Encounter: 08:50 Assessment and Plan (1) Atrial flutter Current Visit: Yes Status: Acute Hx of poorly controlled atrial flutter, now in SR. Has not been a candidate for rhythm control strategy in the past due to COSTA thrombus (coumadin therapy). ECG upon presentation shows SB, HR 52. 12 hour tele: avg HR = 81 SR. Brief episode of PAF overnight. HR 80's-90's upon exam, SR. Will re-start low dose of Toprol XL 25 mg daily--increase as needed for HR control. Recommend stopping po digoxin and cardizem in the outpatient setting. Previously anticoagulated on Coumadin for COSTA; now has been hold due to x2 episodes of GI bleed requiring transfusion. Consider resuming in the future if able and when okay by GI. Discussed patient with ESTEBAN Canchola regarding ASA therapy; agrees to start 81 mg asa daily--will start today and monitor H/H closely. Qualifiers: Atrial flutter type: typical Qualified Code(s): I48.3 - Typical atrial flutter (2) Thrombus of left atrial appendage Current Visit: Yes Status: Chronic Most recent JAUN 2016 demonstrated EF 40% with left atrial appendage thrombus. Second hospitalization within a few weeks d/t acute blood loss anemia requiring transfusion. Agree with stopping coumadin; resume if able when H/H stable. Patient/family aware of increased risk for CVA. Unable to visualize COSTA on TTE; at this point, consider repeating JAUN in the outpatient setting. Patient is unable to tolerate AC given x2 recent acute GI bleed/blood loss anemia. Consider resuming coumadin in the future if H/H stable and okay by GI. Will start 81 mg ASA EC today. (3) Acute blood loss anemia Current Visit: Yes Status: Acute Hx of anemia; recent hospitalization 09/07/16 with acute anemia, Hgb 5.7. She was transfused with 3 units PRBC and underwent EGD/colonoscopy which was negative for active bleeding--2 non-bleeding polyps were removed. By discharge, she was re-started on coumadin with lovenox bridging until INR therapeutic. Presented this admission with weakness and bright red blood per rectum, H/H 6.4/ 20.4 upon presentation. Transfused with 3 units PRBC, 1 unit FFP and vitamin K administered. Hgb 8.5 stable. INR supratherapeutic upon admission, 5.0. GI no longer planning for colonoscopy as patient had a colonoscopy a few weeks ago. Holding coumadin given recurrent GI bleed. Patient/family aware of increased risk for CVA. (4) Elevated troponin Current Visit: Yes Status: Acute Mild, adynamic troponin elevation in the setting of acute blood loss anemia and acute renal failure. Likely secondary to demand ischemia. She is chest pain free. TTE 09/29/16: LVEF 60% (improved from previous); moderately dilated LA, mild ( MG=10 mmHg), mild MR, moderate TR, no PH, normal wall motion (5) ARF (acute renal failure) Current Visit: Yes Status: Acute Nephrology consulted and following. SCr improved this AM Digoxin/ARB stopped. On IVF. Qualifiers: Acute renal failure type: unspecified Qualified Code(s): N17.9 - Acute kidney failure, unspecified Discussion w patient/family: The assessment and plan as outlined above was discussed with the patient and/or family members who expressed understanding and agreement. All questions were answered. Thank you for involving us in the care of your patient. Please call with any questions. The patient was discussed and reviewed with Dr. You; Cardiology will sign-off , please call with questions. Will arrange for outpatient follow-up with [facility]. Subjective Principal diagnosis: ARF, acute blood loss anemia Interval history: Seen and examined earlier this AM. Reports she is feeling much better today. Denies melena or hematochezia. Objective Vital Signs, Last 4 Hours Temp Pulse Resp BP Pulse Ox 09/30/16 08:20 78 96 09/30/16 07:57 16 120/60 97 09/30/16 07:53 96.8 F L 76 14 120/60 95 09/30/16 05:44 97.8 F 77 16 123/62 97 General: Conversant, No Apparent Distress HEENT: Atraumatic, Normocephaly Cardiac: Reg Rate and Rhythm, Normal S1 and S2 Lungs: Normal Breath Sounds Neuro: Alert and responsive Abdomen: Soft Skin: No rashes noted on visualized skin Musculoskeletal: No Chest Wall Tenderness Extremities: Other (mild pre-tibial edema) Results 09/30/16 04:37 09/30/16 04:37 Lab Results 09/30/16 09/30/16 09/30/16 04:37 04:37 04:37 WBC 6.1 Hgb 8.3 L Hct 27.2 L Plt Count 168 INR 1.6 Sodium 139 Potassium 4.0 Chloride 105 Carbon Dioxide 20 BUN 47 H Creatinine 3.83 H Glucose 128 H Calcium 8.2 L Magnesium 1.8 Active Medications Acetaminophen (Tylenol) 650 mg PO Q6HR PRN PRN Reason: Pain Stop: 03/31/17 13:04 Last Admin: 09/30/16 04:16 Dose: 650 mg Albuterol Sulfate (Albuterol Inhaler) 2 puff IH Q4H PRN PRN Reason: Shortness Of Breath Stop: 03/30/17 19:14 Last Admin: 09/30/16 04:42 Dose: 2 puff Atorvastatin Calcium (Lipitor) 20 mg PO HS [facility] Stop: 03/29/17 21:01 Last Admin: 09/29/16 19:52 Dose: 20 mg Budesonide/Formoterol Fumarate (Symbicort) 2 puff IH BIDR [facility] Stop: 03/30/17 22:01 Last Admin: 09/30/16 07:57 Dose: 2 puff Citalopram Hydrobromide (Celexa) 30 mg PO DAILY [facility] Stop: 03/30/17 09:01 Last Admin: 09/30/16 08:50 Dose: 30 mg Dextrose/Water (Dextrose 50% (Syg)) 25 ml IVP AD PRN PRN Reason: Hypoglycemia Stop: 03/29/17 19:32 Ferrous Sulfate (Ferrous Sulfate) 325 mg PO BIDWM [facility] Stop: 03/30/17 08:01 Last Admin: 09/30/16 08:51 Dose: 325 mg Gabapentin (Neurontin) 600 mg PO HS [facility] Stop: 03/29/17 21:01 Last Admin: 09/29/16 19:50 Dose: Not Given Dextrose (Dextrose 5%) 1,000 mls @ 100 mls/hr IVC .Q10H PRN PRN Reason: HYPOGLYCEMIA Stop: 03/29/17 19:32 Sodium Chloride (0.9 % Sodium Chloride) 1,000 mls @ 75 mls/hr IVC .[id number] [facility] Stop: 03/30/17 10:46 Last Admin: 09/29/16 20:04 Dose: 75 mls/hr Ceftriaxone Sodium 1,000 mg/ (Dextrose) 100 mls @ 200 mls/hr IVPB Q24H [facility] Stop: 03/31/17 18:01 Last Admin: 09/29/16 18:33 Dose: 200 mls/hr Insulin Human Lispro (Humalog) 0 units SQ HS [facility] PRN Reason: Protocol Stop: 03/30/17 21:01 Last Admin: 09/29/16 21:35 Dose: Not Given Insulin Human Lispro (Humalog) 0 units SQ TIDAC [facility] PRN Reason: Protocol Stop: 03/31/17 07:31 Last Admin: 09/30/16 07:52 Dose: Not Given Metoprolol Succinate (Toprol Xl) 25 mg PO DAILY [facility] Stop: 04/01/17 09:01 Last Admin: 09/30/16 08:51 Dose: 25 mg Naloxone HCl (Narcan) 0.4 mg IVP Q2MIN PRN PRN Reason: Opioid Reversal Stop: 03/29/17 18:50 Ondansetron HCl (Zofran) 4 mg IVP Q8HR PRN PRN Reason: Nausea And Vomiting Stop: 03/29/17 18:50 Last Admin: 09/27/16 21:17 Dose: 4 mg Pantoprazole Sodium (Protonix) 40 mg IVP Q12HR [facility] Stop: 03/30/17 18:01 Last Admin: 09/30/16 05:29 Dose: 40 mg Vitamin D (Vitamin D) 2,000 unit PO DAILY [facility] Stop: 03/30/17 09:01 Last Admin: 09/30/16 08:51 Dose: 2,000 unit - Imaging and Cardiology Echo: report reviewed Other Results: 12 hour tele: avg HR=81 SR. Brief episode of PAF noted overnight. - VTE Documentation of Mechanical Device: Intermittent pneumatic compression device Consult Discharge Plan - Plan Referrals: Ward Mcmanus MD [Primary Care Provider] - 10/08/16 2:00 pm ()
--- NOTE | 2016-09-30 11:26 | Nephrology Progress Note ---
Date of Encounter: 09/30/16 Time of Encounter: 11:45 - Assessment and Plan (1) FRAN (acute kidney injury) Current Visit: No Status: Acute Oligouric FRAN likely 2/2 to hypoperfusion in the setting of acute blood loss, hypotension, and dehydration. Patient having improved UOP today of 1650ml compared to 300ml output yesterday. Patient denies NSAIDS, no recent contrast exposure. Renal US: No hydronephrosis. Focal nodule of R adrenal gland, noted in prior CT. Plan: Avoid nephrotoxins. Monitor UOP.Improvement from 300ml yesterday to 1650ml today. Continue IVF with 0.9 NS @ 75mls/hours. No need for acute dialysis at this time. (2) Proteinuria Current Visit: Yes Status: Acute UA with protein >=1000 See plan for FRAN Qualifiers: Proteinuria type: unspecified Qualified Code(s): R80.9 - Proteinuria, unspecified (3) Acute blood loss anemia Current Visit: Yes Status: Acute Hx of anemia; recent hospitalization 09/07/16 with acute anemia, Hgb 5.7. She was transfused with 3 units PRBC and underwent EGD/colonoscopy which was negative for active bleeding--2 non-bleeding polyps were removed. By discharge, she was re-started on coumadin with lovenox bridging until INR therapeutic. Presented this admission with weakness and bright red blood per rectum, H/H 6.4/ 20.4 upon presentation. Transfused with 3 units PRBC, 1 unit FFP and vitamin K administered. Hgb 8.5 today. INR supratherapeutic upon admission, 5.0; improvement at 1.6 today. GI no longer planning for colonoscopy as patient had a colonoscopy a few weeks ago. More concerned about supratheraputic INR Holding coumadin given recurrent GI bleed. Patient/family aware of increased risk for CVA. (4) Hypotension Current Visit: Yes Status: Resolved Improved with holding cardiac meds (cardizem and toprol) and with volume expansion with IVFs. Qualifiers: Hypotension type: unspecified hypotension type Qualified Code(s): I95.9 - Hypotension, unspecified (5) GI bleed Current Visit: Yes Status: Acute See plan for anemia. Holding coumadin. GI consulted. Qualifiers: GI bleed type/associated pathology: unspecified gastrointestinal hemorrhage type Qualified Code(s): K92.2 - Gastrointestinal hemorrhage, unspecified (6) Thrombus of left atrial appendage Current Visit: Yes Status: Chronic Cardiology following. Left atrial appendage thrombus on JAUN from Jul 2016. Treatment previously with coumadin; GI and cardiology agree to holding coumadin for acute GI bleed. (7) Supratherapeutic INR Current Visit: Yes Status: Resolved Improved. INR 5.0>1.6 anticoagulation held. Subjective Principal diagnosis: ARF, acute blood loss anemia Interval history: Patient seen and examined at bedside. She states she still feels shaky today. Patient notes that she feels thirsty and is having more urine output Objective - Vital Signs Vital signs: Vital Signs Temp Pulse Resp BP Pulse Ox 09/30/16 08:20 78 96 09/30/16 07:57 16 120/60 97 09/30/16 07:53 96.8 F L 76 14 120/60 95 09/30/16 05:44 97.8 F 77 16 123/62 97 09/30/16 04:42 16 94 09/30/16 04:00 80 09/30/16 00:10 80 09/29/16 23:54 97.9 F 84 18 132/68 95 09/29/16 21:40 16 94 09/29/16 21:00 98 F 81 17 122/68 93 09/29/16 20:30 78 96 09/29/16 17:34 97.6 F 76 11 128/62 94 09/29/16 16:00 98.0 F 76 16 128/62 95 09/29/16 14:08 98.0 F 72 16 124/62 95 09/29/16 12:36 72 09/29/16 11:37 98.0 F 69 16 124/62 94 Intake and Output 09/29/16 09/30/16 09/30/16 23:59 07:59 15:59 Intake Total 1300 / 1300 800 / 800 Output Total 300 / 300 550 / 550 Balance 1000 / 1000 -550 / -550 800 / 800 Intake: IV Fluids 1000 / 1000 0.9 % Sodium Chloride 1, 1000 / 1000 000 ML @ 75 mls/hr IVC . [id number] [facility] Rx#: [id number] Oral 300 / 300 800 / 800 Output: Urine 300 / 300 550 / 550 Other: Meal Dinner Breakfast Percent of Meal Consumed 100% 95% Stool Size Moderate Stool Consistency loose soft Stool Characteristics Pasty Stool Color Brown # Bowel Movements 1 Weight 101 kg Blood Glucose* 155 140 165 Patient Weight 09/30/16 23:59 Weight 101 kg - General Appearance General appearance: Present: well-developed, well-nourished, appears started age , obese EENT: Present: ATNC, mucous membranes moist, hearing intact, vision intact Neck: Present: supple Respiratory: Present: clear Cardiology: Present: edema (trace pretibial edema), regular rate, regular rhythm Gastrointestinal: Present: normoactive bowel sounds, no tenderness, no guarding Integumentary: Present: no rash, warm and dry Neurologic: Present: no focal deficit, alert and oriented x3 Musculoskeletal: Present: no deformities, no erythema, no cyanosis Psychiatric: Present: mood/affect appropriate, cooperative - Lab 09/30/16 04:37 09/30/16 04:37 Most recent lab results Calcium 8.2 mg/dL (8.6-10.8) L 09/30/16 04:37 Phosphorus 4.3 mg/dL (2.3-4.7) 09/30/16 04:37 Magnesium 1.8 mg/dL (1.6-2.6) 09/30/16 04:37 - VTE Documentation of Mechanical Device: Intermittent pneumatic compression device Consult Discharge Plan - Plan Referrals: Ward Mcmanus MD [Primary Care Provider] - 10/08/16 2:00 pm ()
[2016-09-30] MEDS: Aspirin Enteric Coated 81 MG Tablet PO SCH (11:47)
[2016-09-30 12:05] LABS: Protein/Creatinine Ratio,Urine 0.19 mg/mg (0-0.20)
[2016-09-30] MEDS: 0.9 % Sodium Chloride 1,000 ML IVC SCH ×2 (16:28)
--- NOTE | 2016-09-30 17:29 | Internal Med Progress Note ---
Date of Encounter: 09/30/16 Time of Encounter: 10:00 - Assessment and plan (1) GI bleed Current Visit: No Status: Acute Assessment and plan: Supratherapeutic INR. Low hemoglobin with positive guaiac test. Consider GI bleeding caused by anticoagulation use. - GI consult, no plan for EGD or colonoscopy because patient just has both of them 3 weeks ago. - Hold anticoagulation. FFP and vitamin K was given on admission. - Patient has a blood transfusion, H&H is stable after transfusion. - Po PPI - Continue closely monitor H&H. Qualifiers: GI bleed type/associated pathology: unspecified gastrointestinal hemorrhage type Qualified Code(s): K92.2 - Gastrointestinal hemorrhage, unspecified (2) Atrial flutter Current Visit: Yes Status: Acute Assessment and plan: Rate is well controlled. Will hold the digoxin because of renal failure. Also hold Coumadin because of GI bleeding. Cardio consult appreciated. Continue beta marva. Qualifiers: Atrial flutter type: typical Qualified Code(s): I48.3 - Typical atrial flutter (3) Hypertension Current Visit: No Status: Chronic Assessment and plan: BP is not high. BP medication is on hold now. Qualifiers: Hypertension type: essential hypertension Qualified Code(s): I10 - Essential (primary) hypertension (4) Diabetes mellitus Current Visit: No Status: Chronic Assessment and plan: Sliding scale coverage Qualifiers: Diabetes mellitus type: type 2 Diabetes mellitus complication status: with unspecified complications Diabetes mellitus care home insulin use: without care home use Qualified Code(s): E11.8 - Type 2 diabetes mellitus with unspecified complications (5) Anemia Current Visit: No Status: Acute Assessment and plan: Due to acute blood loss caused by GI bleeding. Improved after transfusion. Follow-up H&H. Qualifiers: Anemia type: other cause Other causes of anemia: acute posthemorrhagic Qualified Code(s): D62 - Acute posthemorrhagic anemia (6) CAD (coronary artery disease) Current Visit: No Status: Chronic Assessment and plan: Continue home medications. Mild elevated troponin was considered demand ischemia. Cardio consult appreciated. Qualifiers: Coronary Disease-Associated Artery/Lesion type: bypass graft [place] vs. transplanted heart: [place] heart Associated angina: without angina Qualified Code(s): I25.810 - Atherosclerosis of coronary artery bypass graft(s) without angina pectoris (7) Thrombus of left atrial appendage Current Visit: Yes Status: Chronic Assessment and plan: Hold anticoagulation now. Cardio consult appreciated. Repeated TTE shows COSTA is not easily visualized. (8) Chronic kidney disease Current Visit: No Status: Chronic Assessment and plan: Significantly elevated creatinine from baseline, probably due to GI bleeding and low volume status. Slightly improved renal function today (Cr 3.83) - Continue IV fluid. - Nephrology consult appreciated. Will f/u recommendation. - Follow up her renal function. Qualifiers: Chronic kidney disease stage: stage 3 (moderate) Qualified Code(s): N18.3 - Chronic kidney disease, stage 3 (moderate) (9) DVT prophylaxis Current Visit: No Status: Acute Assessment and plan: EPCD, no anticoagulation because of GI bleeding. - Time Spent With Patient 25 - 35 minutes - Subjective Interval history: Patient is a 65 year old female admitted for chest pain. Past medical history is significant for COPD, breast cancer, CHF, diabetes, A flutter and COSTA thrombus on coumadin. Patient was found low hemoglobin and a positive guaiac test in the emergency room. Patient was seen and examined, she is awake alert, oriented 3. No further chest pain or shortness of breath. Vitals are stable. Cardio, nephro, and a GI consult appreciated. Hemoglobin is stable after transfusion. Improved renal function comparing yesterday, will follow nephrology recommendation for further management. - Constitutional Vitals: Temp Pulse Resp BP Pulse Ox 97.9 F 77 18 139/79 96 09/30/16 16:21 09/30/16 16:21 09/30/16 16:21 09/30/16 16:21 09/30/16 16:21 General appearance: Present: A&O X 3, answers questions appropriately - Head Head exam: Present: atraumatic, normocephalic - Eye Eye exam: Present: PERRL, conjuntiva pink, sclera anicteric Pupils: Present: PERRL - Neck Neck exam general surgery: Present: supple, trachea midline. Absent: lymphadenopathy - Respiratory Respiratory exam: Present: CTAB. Absent: accessory muscle use, rales, rhonchi, wheezes - Cardiovascular Cardiovascular exam: Present: RRR, +S1, +S2. Absent: diastolic murmur, gallop, rubs, systolic murmur - GI/Abdominal GI/Abdominal exam: Present: normal bowel sounds, soft, no peritoneal signs. Absent: distended, tenderness - Extremities Exam Extremities exam: Present: warm, radial pulses palpable and symetrical. Absent : calf tenderness, cyanotic, pedal edema - Neurological Exam Neurological exam: Present: CN II-XII intact, oriented X3, no focal deficits. Absent: pronater drift, facial droop, speech deficit - Skin Skin exam: Present: dry, intact Internal Medicine: Result - Labs CBC & Chem 7: 09/30/16 04:37 09/30/16 04:37 Labs: Short CBC 09/30/16 Range/Units 04:37 WBC 6.1 (4.3-11.1) K/mcL Hgb 8.3 L (11.5-15.4) g/dL Hct 27.2 L (35.3-44.9) % Plt Count 168 (140-400) K/mcL Neutrophils # 3.7 (1.6-8.9) K/mcL BMP 09/30/16 04:37 Sodium 139 Potassium 4.0 Chloride 105 Carbon Dioxide 20 BUN 47 H Creatinine 3.83 H Glucose 128 H Calcium 8.2 L - ABG Interpretation ABG results: PT/INR, D-dimer PT 17.8 Seconds (9.4-12.1) H 09/30/16 04:37 - VTE Documentation of Mechanical Device: Intermittent pneumatic compression device Consult Discharge Plan - Plan Referrals: Ward Mcmanus MD [Primary Care Provider] - 10/08/16 2:00 pm ()
[2016-10-01] MEDS ORDERED: *HR* LORazepam 0.5 MG TABLET PO ONE (02:25)
[2016-10-01] MEDS: Acetaminophen 325 MG TABLET PO PRN ×2 (03:04→21:39)
[2016-10-01] MEDS: Ondansetron 4 MG/2 ML VIAL IVP PRN ×2 (03:30→15:38)
[2016-10-01 03:43] LABS: Basophils % 0.5 %; Eosinophils # 0.1 K/mcL (0.0-0.6); Eosinophils % 2.1 %; Hematocrit 27.6 % (35.3-44.9); Hemoglobin 8.7 g/dL (11.5-15.4); Immature Granulocytes % 0.7 % (0-4); Immature Platelets 2.5 % (1.1-6.1); Mean Corpuscular HGB Conc 31.5 g/dL (31.6-35.5); Mean Corpuscular Hemoglobin 27.7 pg (28.0-33.3); Mean Corpuscular Volume 87.9 fL (83.0-100.0); Mean Platelet Volume 10.4 fL (9.4-12.4); Monocytes # 0.8 K/mcL (0.0-1.3); Monocytes % 12.4 %; Neutrophils # 4.1 K/mcL (1.6-8.9); Platelet Count 171 K/mcL (140-400); Red Blood Count 3.14 M/mcL (3.82-4.97); Red Cell Distribution Width 17.9 % (11.5-14.5); Segmented Neutrophils % 67.3 %
[2016-10-01 04:00] LABS: Calcium 8.5 mg/dL (8.6-10.8); Potassium 4.4 mEq/L (3.5-4.5)
[2016-10-01] MEDS ORDERED: Piperacillin/Tazobactam 4.5 GM in D5% in Water (Mini-Bag+) 100 ML IVPB STA (05:23)
[2016-10-01] MEDS ORDERED: Piperacillin/Tazobactam 3.375 GM in D5% in Water (Mini-Bag+) 100 ML IVPB STA (05:28)
[2016-10-01] MEDS: Insulin LISPRO 300 UNITS/3 ML VIAL SQ SCH ×4 (08:21→21:09)
[2016-10-01] MEDS: Budesonide/Formoterol 160/4.5 MDI IH SCH ×2 (08:45→20:40)
[2016-10-01] MEDS: Aspirin Enteric Coated 81 MG Tablet PO SCH (09:31)
[2016-10-01] MEDS: Metoprolol XL (24 HR) Succ 25 MG TAB.ER.24H PO SCH (09:31)
[2016-10-01] MEDS: Cholecalciferol (D-3) 1,000 UNIT TABLET PO SCH (09:31)
[2016-10-01] MEDS: 0.9 % Sodium Chloride 1,000 ML IVC SCH (10:53)
--- NOTE | 2016-10-01 12:15 | Nephrology Progress Note ---
Date of Encounter: 10/01/16 Time of Encounter: 09:45 - Assessment and Plan (1) FRAN (acute kidney injury) Current Visit: No Status: Acute Initially presented with oligouric FRAN likely 2/2 to hypoperfusion in the setting of acute blood loss, hypotension, and dehydration. Patient having improved UOP yesterday of 2550ml compared to 300ml output at admission. Creatinine improving; 3.81>5.36>3.83>1.79. Baseline Cr appears to be around 1.0. Patient denies NSAIDS, no recent contrast exposure. Renal US: No hydronephrosis. Focal nodule of R adrenal gland, noted in prior CT. Plan: Avoid nephrotoxins. Monitor UOP.Improvement from 300ml yesterday to 1650ml today. Continue IVF with 0.9 NS @ 75mls/hours. She has no uremic symptoms or hyperkalemia, and no urgent indications for MSW. Continue to follow a renal protective/supportive strategy. (2) Proteinuria Current Visit: Yes Status: Acute UA with protein >=1000 See plan for FRAN Qualifiers: Proteinuria type: unspecified Qualified Code(s): R80.9 - Proteinuria, unspecified (3) Acute blood loss anemia Current Visit: Yes Status: Acute Hx of anemia; recent hospitalization 09/07/16 with acute anemia, Hgb 5.7. She was transfused with 3 units PRBC and underwent EGD/colonoscopy which was negative for active bleeding--2 non-bleeding polyps were removed. By discharge, she was re-started on coumadin with lovenox bridging until INR therapeutic. Presented this admission with weakness and bright red blood per rectum, H/H 6.4/ 20.4 upon presentation. Transfused with 3 units PRBC, 1 unit FFP and vitamin K administered. Hgb 8.7 today. INR supratherapeutic upon admission, 5.0; improvement at 1.6 yesterday. GI no longer planning for colonoscopy as patient had a colonoscopy a few weeks ago. More concerned about supratheraputic INR Holding coumadin given recurrent GI bleed. Patient/family aware of increased risk for CVA. (4) Hypotension Current Visit: Yes Status: Resolved Improved with holding cardiac meds (cardizem and toprol) and with volume expansion with IVFs. Qualifiers: Hypotension type: unspecified hypotension type Qualified Code(s): I95.9 - Hypotension, unspecified (5) GI bleed Current Visit: Yes Status: Acute See plan for anemia. Holding coumadin. GI consulted. Qualifiers: GI bleed type/associated pathology: unspecified gastrointestinal hemorrhage type Qualified Code(s): K92.2 - Gastrointestinal hemorrhage, unspecified (6) Thrombus of left atrial appendage Current Visit: Yes Status: Chronic Cardiology following. Left atrial appendage thrombus on JAUN from Jul 2016. Treatment previously with coumadin; GI and cardiology agree to holding coumadin for acute GI bleed. (7) Supratherapeutic INR Current Visit: Yes Status: Resolved Improved. INR 5.0>1.6 yesterday. anticoagulation held. (8) UTI due to extended-spectrum beta lactamase (ESBL) producing Escherichia coli Current Visit: Yes Status: Acute Sensitive to Zosyn, primary medicine service started therapy. Subjective Principal diagnosis: ARF, acute blood loss anemia Interval history: Patient seen and examined at bedside. She states the feelings of shakiness improved today. But she is very anxious today, noting panic attacks throughout the night, due to hearing she may need rehab and that she has to be on contact precautions for ESBL UTI. Objective - Vital Signs Vital signs: Vital Signs Temp Pulse Resp BP Pulse Ox 10/01/16 11:17 97.7 F 87 20 186/80 95 10/01/16 08:16 89 10/01/16 07:59 97.3 F L 93 20 130/64 95 10/01/16 04:53 97.9 F 80 15 94 09/30/16 23:05 97.5 F L 86 17 132/70 93 09/30/16 20:25 18 96 09/30/16 20:00 98.4 F 77 17 122/71 95 09/30/16 16:21 97.9 F 77 18 139/79 96 09/30/16 15:00 81 Intake and Output 09/30/16 10/01/16 10/01/16 23:59 07:59 15:59 Intake Total 1550 / 1550 100 / 100 1000 / 1000 Output Total 900 / 900 950 / 950 210 / 210 Balance 650 / 650 -850 / -850 790 / 790 Intake: IV Fluids 1000 / 1000 100 / 100 1000 / 1000 0.9 % Sodium Chloride 1, 1000 / 1000 1000 / 1000 000 ML @ 75 mls/hr IVC . [id number] [facility] Rx#: [id number] Rocephin 1,000 MG In 100 / 100 Dextrose 5% (Minibag+) 100 ML 100 ML @ 200 mls/ hr IVPB Q24H [facility] Rx#: [id number] Oral 550 / 550 0 / 0 Output: Urine 900 / 900 950 / 950 210 / 210 Other: Meal Dinner Percent of Meal Consumed 100% Stool Size Small Stool Consistency soft Stool Color Brown Weight 109.8 kg Blood Glucose* 172 140 144 Patient Weight 10/01/16 23:59 Weight 109.8 kg - General Appearance General appearance: Present: well-developed, well-nourished, appears started age , obese EENT: Present: ATNC, mucous membranes moist, hearing intact, vision intact Neck: Present: supple Respiratory: Present: clear Cardiology: Present: edema (1+ BLE), regular rate, regular rhythm Gastrointestinal: Present: no tenderness Integumentary: Present: no rash, warm and dry Neurologic: Present: no focal deficit, alert and oriented x3 Musculoskeletal: Present: no deformities, no erythema, no cyanosis Psychiatric: Present: mood/affect appropriate (some anxiety), cooperative - Lab 10/01/16 03:15 10/01/16 03:15 Most recent lab results Calcium 8.5 mg/dL (8.6-10.8) L 10/01/16 03:15 Phosphorus 4.3 mg/dL (2.3-4.7) 09/30/16 04:37 Magnesium 1.8 mg/dL (1.6-2.6) 09/30/16 04:37 Urine Creatinine 134 mg/dL 09/30/16 11:25 Urine Sodium 33.0 mEq/L 09/30/16 11:25 Urine Total Protein 26 mg/dL (1-14) H 09/30/16 11:25 - VTE Documentation of Mechanical Device: Intermittent pneumatic compression device Consult Discharge Plan - Plan Referrals: Ward Mcmanus MD [Primary Care Provider] - 10/08/16 2:00 pm ()
[2016-10-01] MEDS: Piperacillin/Tazobactam 3.375 GM in D5% in Water (Mini-Bag+) 100 ML IVPB SCH ×2 (13:27→21:39)
--- NOTE | 2016-10-01 16:26 | Internal Med Progress Note ---
Date of Encounter: 10/01/16 Time of Encounter: 10:00 - Assessment and plan (1) GI bleed Current Visit: No Status: Acute Assessment and plan: Supratherapeutic INR. Low hemoglobin with positive guaiac test. Consider GI bleeding caused by anticoagulation use. - GI consult, no plan for EGD or colonoscopy because patient just has both of them 3 weeks ago. - Hold anticoagulation. FFP and vitamin K was given on admission. - Patient has a blood transfusion, H&H is stable after transfusion. - Po PPI - Continue closely monitor H&H. Qualifiers: GI bleed type/associated pathology: unspecified gastrointestinal hemorrhage type Qualified Code(s): K92.2 - Gastrointestinal hemorrhage, unspecified (2) Atrial flutter Current Visit: Yes Status: Acute Assessment and plan: Rate is well controlled. Will hold the digoxin because of renal failure. Also hold Coumadin because of GI bleeding. Cardio consult appreciated. Continue beta marva. Qualifiers: Atrial flutter type: typical Qualified Code(s): I48.3 - Typical atrial flutter (3) Hypertension Current Visit: No Status: Chronic Assessment and plan: BP is elevated, resume home med cardizem. Hold Losartan/HCTZ b/o poor renal function. Add hydralazine 25mg tid and 10mg iv PRN. Qualifiers: Hypertension type: essential hypertension Qualified Code(s): I10 - Essential (primary) hypertension (4) Diabetes mellitus Current Visit: No Status: Chronic Assessment and plan: Sliding scale coverage Qualifiers: Diabetes mellitus type: type 2 Diabetes mellitus complication status: with unspecified complications Diabetes mellitus skilled nursing insulin use: without skilled nursing use Qualified Code(s): E11.8 - Type 2 diabetes mellitus with unspecified complications (5) Anemia Current Visit: No Status: Acute Assessment and plan: Due to acute blood loss caused by GI bleeding. Improved after transfusion. Follow-up H&H. Qualifiers: Anemia type: other cause Other causes of anemia: acute posthemorrhagic Qualified Code(s): D62 - Acute posthemorrhagic anemia (6) CAD (coronary artery disease) Current Visit: No Status: Chronic Assessment and plan: Continue home medications. Mild elevated troponin was considered demand ischemia. Cardio consult appreciated. Qualifiers: Coronary Disease-Associated Artery/Lesion type: bypass graft [place] vs. transplanted heart: [place] heart Associated angina: without angina Qualified Code(s): I25.810 - Atherosclerosis of coronary artery bypass graft(s) without angina pectoris (7) Thrombus of left atrial appendage Current Visit: Yes Status: Chronic Assessment and plan: Hold anticoagulation now. Cardio consult appreciated. Repeated TTE shows COSTA is not easily visualized. (8) Chronic kidney disease Current Visit: No Status: Chronic Assessment and plan: Significantly elevated creatinine from baseline, probably due to GI bleeding and low volume status. Slightly improved renal function today (Cr 3.83) - Continue IV fluid. - Nephrology consult appreciated. Will f/u recommendation. - Follow up her renal function. Qualifiers: Chronic kidney disease stage: stage 3 (moderate) Qualified Code(s): N18.3 - Chronic kidney disease, stage 3 (moderate) (9) DVT prophylaxis Current Visit: No Status: Acute Assessment and plan: EPCD, no anticoagulation because of GI bleeding. (10) UTI (urinary tract infection) Current Visit: Yes Status: Acute Assessment and plan: Urine culture shows ESBL UTI, pt has minimal symptoms, On zosyn now, may change to po if final sensitivity report available. Qualifiers: Urinary tract infection type: acute cystitis Hematuria presence: without hematuria Qualified Code(s): N30.00 - Acute cystitis without hematuria - Time Spent With Patient 25 - 35 minutes - Subjective Interval history: Patient is a 65 year old female admitted for chest pain. Past medical history is significant for COPD, breast cancer, CHF, diabetes, A flutter and COSTA thrombus on coumadin. Patient was found low hemoglobin and a positive guaiac test in the emergency room. Patient was seen and examined, she is awake alert, oriented 3. No further chest pain or shortness of breath. Vitals are stable. Cardio, nephro, and GI consult appreciated. Hemoglobin is stable after transfusion. Improved renal function comparing yesterday, with good UOP, will follow nephrology recommendation for further management. - Constitutional Vitals: Temp Pulse Resp BP Pulse Ox 97.9 F 93 15 168/88 93 10/01/16 16:02 10/01/16 16:02 10/01/16 16:02 10/01/16 16:02 10/01/16 16:02 General appearance: Present: A&O X 3, answers questions appropriately - Head Head exam: Present: atraumatic, normocephalic - Eye Eye exam: Present: PERRL, conjuntiva pink, sclera anicteric Pupils: Present: PERRL - Neck Neck exam general surgery: Present: supple, trachea midline. Absent: lymphadenopathy - Respiratory Respiratory exam: Present: CTAB. Absent: accessory muscle use, rales, rhonchi, wheezes - Cardiovascular Cardiovascular exam: Present: RRR, +S1, +S2. Absent: diastolic murmur, gallop, rubs, systolic murmur - GI/Abdominal GI/Abdominal exam: Present: normal bowel sounds, soft, no peritoneal signs. Absent: distended, tenderness - Extremities Exam Extremities exam: Present: warm, radial pulses palpable and symetrical. Absent : calf tenderness, cyanotic, pedal edema - Neurological Exam Neurological exam: Present: CN II-XII intact, oriented X3, no focal deficits. Absent: pronater drift, facial droop, speech deficit - Skin Skin exam: Present: dry, intact Internal Medicine: Result - Labs CBC & Chem 7: 10/01/16 03:15 10/01/16 03:15 Labs: Short CBC 10/01/16 Range/Units 03:15 WBC 6.1 (4.3-11.1) K/mcL Hgb 8.7 L (11.5-15.4) g/dL Hct 27.6 L (35.3-44.9) % Plt Count 171 (140-400) K/mcL Neutrophils # 4.1 (1.6-8.9) K/mcL BMP 10/01/16 03:15 Sodium 143 Potassium 4.4 Chloride 108 Carbon Dioxide 23 BUN 38 H Creatinine 1.79 H D Glucose 133 H Calcium 8.5 L - ABG Interpretation ABG results: PT/INR, D-dimer PT 17.8 Seconds (9.4-12.1) H 09/30/16 04:37 - VTE Documentation of Mechanical Device: Intermittent pneumatic compression device Consult Discharge Plan - Plan Referrals: Ward Mcmanus MD [Primary Care Provider] - 10/08/16 2:00 pm ()
[2016-10-01] MEDS ORDERED: *HR* Promethazine 25 MG/ML VIAL IVP ONE (18:27)
[2016-10-01] MEDS ORDERED: *HR* HYDROcodone/Acet 5/325 mg TABLET PO PRN (18:28)
[2016-10-01] MEDS ORDERED: Promethazine 12.5 MG in 0.9 % Sodium Chloride 50 ML IVPB ONE (18:30)
[2016-10-01] MEDS: Diltiazem CD (24hr) 120 MG CAPSULE PO SCH (18:40)
[2016-10-01] MEDS ORDERED: *HR* LORazepam 2 MG/ML VIAL IVP ONE (18:50)
[2016-10-02] MEDS: hydrALAZINE 25 MG TABLET PO SCH ×4 (00:07→23:23)
[2016-10-02] MEDS: 0.9 % Sodium Chloride 1,000 ML IVC SCH ×2 (02:30→13:29)
[2016-10-02 04:38] LABS: Alpha 2 Globulin (PEP) 0.79 g/dL (0.48-1.05); Beta Globulin (PEP) 0.94 g/dL (0.48-1.10)
[2016-10-02 04:41] LABS: Basophils % 0.7 %; Eosinophils # 0.1 K/mcL (0.0-0.6); Eosinophils % 2.3 %; Hematocrit 26.2 % (35.3-44.9); Hemoglobin 8.2 g/dL (11.5-15.4); Immature Granulocytes % 0.7 % (0-4); Lymphocytes % 16.2 %; Mean Corpuscular HGB Conc 31.3 g/dL (31.6-35.5); Mean Corpuscular Hemoglobin 27.5 pg (28.0-33.3); Mean Corpuscular Volume 87.9 fL (83.0-100.0); Mean Platelet Volume 10.3 fL (9.4-12.4); Monocytes # 0.7 K/mcL (0.0-1.3); Neutrophils # 4.1 K/mcL (1.6-8.9); Platelet Count 158 K/mcL (140-400); Red Blood Count 2.98 M/mcL (3.82-4.97); Red Cell Distribution Width 18.4 % (11.5-14.5); Segmented Neutrophils % 68.1 %
[2016-10-02 04:53] LABS: BUN/Creatinine Ratio 23 (6-26); Calcium 8.7 mg/dL (8.6-10.8); Carbon Dioxide 24 mEq/L (19-29); Chloride 111 mEq/L (98-109); Glucose 122 mg/dL (70-99); Osmolality,Calculated 301 (280-300); Potassium 3.8 mEq/L (3.5-4.5); Sodium 143 mEq/L (136-145); eGFR For African Americans > 60 (> 60); eGFR For Non-African Americans 54 (> 60)
[2016-10-02 04:55] LABS: Blood Urea Nitrogen 24 mg/dL (7-20)
[2016-10-02] MEDS: Piperacillin/Tazobactam 3.375 GM in D5% in Water (Mini-Bag+) 100 ML IVPB SCH ×3 (05:15→20:04)
[2016-10-02] MEDS ORDERED: *HR* LORazepam 2 MG/ML VIAL IVP ONE (06:23)
--- NOTE | 2016-10-02 07:31 | Internal Med Progress Note ---
Date of Encounter: 10/02/16 Time of Encounter: 07:27 - Assessment and plan (1) Atrial flutter Current Visit: Yes Status: Chronic Assessment and plan: currently in sinus rhythm cardiology following Qualifiers: Atrial flutter type: typical Qualified Code(s): I48.3 - Typical atrial flutter (2) Hypertension Current Visit: No Status: Chronic Assessment and plan: not well controlled Qualifiers: Hypertension type: essential hypertension Qualified Code(s): I10 - Essential (primary) hypertension (3) Diabetes mellitus Current Visit: No Status: Chronic Assessment and plan: chronic continue on sliding scale Qualifiers: Diabetes mellitus type: type 2 Diabetes mellitus complication status: with unspecified complications 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 transplanted heart: [place] heart Associated angina: without angina Qualified Code(s): I25.810 - Atherosclerosis of coronary artery bypass graft(s) without angina pectoris (6) Mural thrombus of cardiac apex Current Visit: No Status: Resolved Assessment and plan: echo does not show thrombus at this time (7) Acute renal injury Current Visit: No Status: Acute Assessment and plan: resolving creatinine almost normal (8) GI bleed Current Visit: Yes Status: Acute Assessment and plan: hag colonoscopy and EGD three weeks ago no GI studies this time Qualifiers: GI bleed type/associated pathology: unspecified gastrointestinal hemorrhage type Qualified Code(s): K92.2 - Gastrointestinal hemorrhage, unspecified (9) Supratherapeutic INR Current Visit: Yes Status: Resolved Assessment and plan: resolving - Subjective Interval history: Patient with history of COPD, breast cancer, CAD had CABG, diabetes, high cholesterol, hypertension, left atrial appendage thrombus, GI bleed in the past , patient was admitted September 27 due to GI bleed and some epigastric symptoms and was supratherapeutic inr patient had been followed by cardiology repeat echo shows EF of 60% with preserved LV function , no apical thrombus she also had the renal failure and nephrology following creatinine has improved to almost normal no active bleeding at this point the patient reports she did not sleep well last night other than that she is no symptoms. denies no chest shortness of breath . have not seen any blood in the stool - Constitutional Vitals: Temp Pulse Resp BP Pulse Ox 98.8 F 102 16 173/85 95 10/02/16 04:01 10/02/16 04:01 10/02/16 04:01 10/02/16 04:01 10/02/16 04:01 General appearance: Present: A&O X 3, answers questions appropriately - Eye Eye exam: Present: PERRL, conjuntiva pink, sclera anicteric Pupils: Present: PERRL - Neck Neck exam general surgery: Present: supple, trachea midline. Absent: lymphadenopathy - Respiratory Respiratory exam: Present: CTAB. Absent: accessory muscle use, rales, rhonchi, wheezes - Cardiovascular Cardiovascular exam: Present: RRR, +S1, +S2. Absent: diastolic murmur, gallop, rubs, systolic murmur - GI/Abdominal GI/Abdominal exam: Present: normal bowel sounds, soft, no peritoneal signs. Absent: distended, tenderness - Extremities Exam Extremities exam: Present: warm, radial pulses palpable and symetrical. Absent : calf tenderness, cyanotic, pedal edema - Neurological Exam Neurological exam: Present: CN II-XII intact, oriented X3, no focal deficits. Absent: pronater drift, facial droop, speech deficit Internal Medicine: Result - Labs CBC & Chem 7: 10/02/16 04:20 10/02/16 04:20 Labs: Short CBC 10/02/16 Range/Units 04:20 WBC 6.0 (4.3-11.1) K/mcL Hgb 8.2 L (11.5-15.4) g/dL Hct 26.2 L (35.3-44.9) % Plt Count 158 (140-400) K/mcL Neutrophils # 4.1 (1.6-8.9) K/mcL BMP 10/02/16 04:20 Sodium 143 Potassium 3.8 Chloride 111 H Carbon Dioxide 24 BUN 24 H D Creatinine 1.03 Glucose 122 H Calcium 8.7 - ABG Interpretation ABG results: PT/INR, D-dimer PT 17.8 Seconds (9.4-12.1) H 09/30/16 04:37 - VTE Documentation of Mechanical Device: Intermittent pneumatic compression device Consult Discharge Plan - Plan Referrals: Ward Mcmanus MD [Primary Care Provider] - 10/08/16 2:00 pm ()
[2016-10-02] MEDS: Budesonide/Formoterol 160/4.5 MDI IH SCH ×2 (08:37→19:48)
[2016-10-02] MEDS: Insulin LISPRO 300 UNITS/3 ML VIAL SQ SCH ×4 (09:00→22:59)
[2016-10-02] MEDS: Cholecalciferol (D-3) 1,000 UNIT TABLET PO SCH (09:01)
[2016-10-02] MEDS: Metoprolol XL (24 HR) Succ 25 MG TAB.ER.24H PO SCH (09:01)
[2016-10-02] MEDS: Aspirin Enteric Coated 81 MG Tablet PO SCH (09:01)
[2016-10-02] MEDS: Diltiazem CD (24hr) 120 MG CAPSULE PO SCH (09:01)
--- NOTE | 2016-10-02 09:30 | Nephrology Progress Note ---
Date of Encounter: 10/02/16 Time of Encounter: 09:26 - Assessment and Plan (1) FRAN (acute kidney injury) Current Visit: No Status: Acute FRAN resolved; kidney function back to normal Nephrology signing off. Follow up with PCP; if any further problems nephrology will be happy to see patient again. (2) Anemia Current Visit: Yes Status: Acute GI bleed; GI on board Qualifiers: Anemia type: unspecified type Qualified Code(s): D64.9 - Anemia, unspecified (3) GI bleed Current Visit: Yes Status: Acute per GI team Qualifiers: GI bleed type/associated pathology: unspecified gastrointestinal hemorrhage type Qualified Code(s): K92.2 - Gastrointestinal hemorrhage, unspecified Subjective Principal diagnosis: ARF, acute blood loss anemia Interval history: Patient seen and examined. Family at bedside; patient given an Ativan last night and was up all night per family. Patient now sleeping soundly. Objective - Vital Signs Vital signs: Vital Signs Temp Pulse Resp BP Pulse Ox 10/02/16 08:40 16 97 10/02/16 08:06 97.8 F 107 18 166/77 97 10/02/16 04:01 98.8 F 102 16 173/85 95 10/01/16 23:45 97.9 F 96 18 148/61 96 10/01/16 20:40 16 90 10/01/16 19:27 98.3 F 85 18 163/80 95 10/01/16 16:02 97.9 F 93 15 168/88 93 10/01/16 11:17 97.7 F 87 20 186/80 95 Intake and Output 10/01/16 10/02/16 10/02/16 23:59 07:59 15:59 Intake Total 100 / 100 1100 / 1100 0 / 0 Output Total 150 / 150 Balance -50 / -50 1100 / 1100 0 / 0 Intake: IV Fluids 100 / 100 1100 / 1100 0.9 % Sodium Chloride 1, 1000 / 1000 000 ML @ 75 mls/hr IVC . [id number] [facility] Rx#: [id number] Zosyn 3.375 GM In 100 / 100 100 / 100 Dextrose 5% (Minibag+) 100 ML 100 ML @ 25 mls/hr IVPB Q8H [facility] Rx#: [id number] Oral 0 / 0 Output: Urine 150 / 150 Other: Meal Breakfast Percent of Meal Consumed 25% Stool Size Moderate Stool Consistency loose Stool Characteristics Mucoid Stool Color Brown Yellow Blood Glucose* 115 144 - General Appearance General appearance: Present: obese EENT: Present: ATNC Neck: Present: supple Respiratory: Present: clear Cardiology: Present: edema (BLL edema), normal S1, normal S2 Gastrointestinal: Present: no tenderness, no guarding Integumentary: Present: warm and dry - Lab 10/02/16 04:20 10/02/16 04:20 Most recent lab results Calcium 8.7 mg/dL (8.6-10.8) 10/02/16 04:20 Phosphorus 4.3 mg/dL (2.3-4.7) 09/30/16 04:37 Magnesium 1.8 mg/dL (1.6-2.6) 09/30/16 04:37 Urine Creatinine 134 mg/dL 09/30/16 11:25 Urine Sodium 33.0 mEq/L 09/30/16 11:25 Urine Total Protein 26 mg/dL (1-14) H 09/30/16 11:25 - VTE Documentation of Mechanical Device: Intermittent pneumatic compression device Consult Discharge Plan - Plan Referrals: Ward Mcmanus MD [Primary Care Provider] - 10/08/16 2:00 pm () Eleni Edge CNP [Partnered Physician] - 10/12/16 8:45 am (in [place] office )
[2016-10-02] MEDS ORDERED: Haloperidol Lactate 5 MG/ML VIAL IVP ONE (10:31)
[2016-10-02 10:41] LABS: ANA IgG by ELISA NONE DETECTED (None Detected)
[2016-10-02 10:48] LABS: IFE Reflexed NOT DONE
[2016-10-02 15:36] LABS: ABG Base Excess -0.7 mEq/L (-2.0 to 3.0); ABG HCO3 22.6 mEQ/L (21-27); ABG Oxygen Saturation 96 % (95-98); ABG PCO2 31 mmHg (35-45); ABG PH 7.47 pH Units (7.32-7.45); ABG PO2 78 mmHg (85-104); ABG TCO2 23.6 mEq/L (20-26); Blood Gas FiO2 32 %
--- NOTE | 2016-10-02 16:00 | Event Note ---
Date of Encounter: 10/02/16 Time of Encounter: 15:56 called to see patient who is confused and complain heart beating out her chest she is breathing fast . no chest pain she is sleepy but easily wakes report that she did not sleep well last night after she was given ativan and tossed and turned through the night. no focal deficit ekg shows sinus rhythm with some pacs abg is normal no need for CT of head no more sedation will give 5 mg ambien tonight for sleep. hopefully she gets better sleep tonight
[2016-10-02 16:38] LABS: Basophils # 0.1 K/mcL (0.0-0.2); Basophils % 0.7 %; Eosinophils # 0.1 K/mcL (0.0-0.6); Eosinophils % 1.6 %; Hematocrit 29.1 % (35.3-44.9); Hemoglobin 8.9 g/dL (11.5-15.4); Immature Granulocytes % 0.6 % (0-4); Lymphocytes # 1.1 K/mcL (0.6-4.6); Lymphocytes % 15.7 %; Mean Corpuscular HGB Conc 30.6 g/dL (31.6-35.5); Mean Corpuscular Hemoglobin 26.8 pg (28.0-33.3); Mean Corpuscular Volume 87.7 fL (83.0-100.0); Mean Platelet Volume 9.7 fL (9.4-12.4); Monocytes % 13.9 %; Neutrophils # 4.7 K/mcL (1.6-8.9); Platelet Count 172 K/mcL (140-400); Red Blood Count 3.32 M/mcL (3.82-4.97); Red Cell Distribution Width 18.6 % (11.5-14.5); Segmented Neutrophils % 67.5 %
[2016-10-02 16:48] LABS: Magnesium 1.1 mg/dL (1.6-2.6); Potassium 3.9 mEq/L (3.5-4.5)
[2016-10-02] MEDS ORDERED: Magnesium Sulfate 4 GM in D5% in Water 100 ML IVPB ONE (16:53)
[2016-10-02] MEDS ORDERED: Acetaminophen IV 1,000 MG/100 ML INFUS..BTL IVPB ONE (23:10)
[2016-10-02] MEDS: Melatonin 3 MG TABLET PO SCH (23:22)
[2016-10-02] MEDS: Gabapentin 300 MG CAPSULE PO SCH (23:23)
[2016-10-03] MEDS ORDERED: *HR* LORazepam 2 MG/ML VIAL IVP STA (01:44)
[2016-10-03] MEDS ORDERED: Haloperidol Lactate 5 MG/ML VIAL IVP STA (01:44)
[2016-10-03] MEDS ORDERED: Haloperidol Lactate 5 MG/ML VIAL ONE (01:47)
[2016-10-03] MEDS ORDERED: *HR* LORazepam 2 MG/ML VIAL ONE (01:47)
[2016-10-03] MEDS ORDERED: *HR* LORazepam 2 MG/ML VIAL IVP PRN ×3 (02:34)
[2016-10-03] MEDS ORDERED: Albuterol 2.5 MG/3 ML NEBULIZER IH PRN (02:37)
--- NOTE | 2016-10-03 02:46 | Event Note ---
Date of Encounter: 10/03/16 Time of Encounter: 03:30 RAPID RESPONSE DX= Toxic metabolic encephalopathy with refractory, agitated delirium Suspect underlying manic depressive disorder presenting with hyperactivity and behavioral disurbance Sundowning with prolonged insomnia and increasing hyperkinetic activity and agitation RAD/asthmatic exacerbation with tachypnea+diffuse bronchospasm Hypertensive emergency w/myocardial demand and tahyarrhythmias + frequent PVCs Assoc DX= COPD/chronic respiratory failure oxygen dependent, RAD/asthma, CHF unspecified, Type 2 diabetes mellitus, Hypertension, Dyslipidemia, CAD/CABG, Mural thrombus of cardiac apex, Left atrial appendage thrombus, Coagulopathy with chronic Coumadin anticoagulation, Recent acute blood loss anemia....resolved;transfused, Recent elevated troponin secondary to demand ischemia....resolved, Acute kidney injury....resolved, Iatrogenic bradycardia/arrhythmias....resolved, PTSD/depression-anxiety disorder....?Bipolar Condition serious.....>Unstable Critical w/ multi-organ derangements Prognosis guarded....>concerning for rapid life-threatening cardio-pulmonary decline Transfer to ICU Plan=Intubation/mechanical ventilatory support (protection of airway, provent patient self harmful events, etc..) Contolled IV sedation Orders written Vital Signs Temp Pulse Resp BP Pulse Ox 10/03/16 03:00 97.7 F 134 42 178/102 93 10/03/16 02:50 130 40 188/97 95 10/03/16 01:03 97.5 F L 113 24 136/81 96 10/02/16 23:47 97.4 F L 116 24 172/90 94 10/02/16 20:18 98.0 F 100 18 170/76 98 10/02/16 19:48 16 98 10/02/16 16:01 98.0 F 98 18 159/78 98 10/02/16 12:11 97.6 F 99 20 151/75 96 10/02/16 08:40 16 97 10/02/16 08:06 97.8 F 107 18 166/77 97 Intake and Output 10/02/16 10/02/16 10/03/16 15:59 23:59 07:59 Intake Total 1100 / 1100 100 / 100 100 / 100 Balance 1100 / 1100 100 / 100 100 / 100 Intake: IV Fluids 1100 / 1100 100 / 100 100 / 100 0.9 % Sodium Chloride 1, 1000 / 1000 000 ML @ 75 mls/hr IVC . [id number] [facility] Rx#: [id number] Zosyn 3.375 GM In 100 / 100 100 / 100 100 / 100 Dextrose 5% (Minibag+) 100 ML 100 ML @ 25 mls/hr IVPB Q8H [facility] Rx#: [id number] Oral 0 / 0 0 / 0 Other: Meal Breakfast Lunch Percent of Meal Consumed 25% 0% Stool Size Small Stool Consistency loose Stool Characteristics Normal for Patient Stool Color Brown # Voids 1 # Bowel Movements 1 Weight 102.512 kg Blood Glucose* 148 146 Patient Weight 10/03/16 23:59 Weight 102.512 kg Short CBC 10/02/16 10/02/16 Range/Units 16:30 04:20 WBC 7.0 6.0 (4.3-11.1) K/mcL Hgb 8.9 L 8.2 L (11.5-15.4) g/dL Hct 29.1 L 26.2 L (35.3-44.9) % Plt Count 172 158 (140-400) K/mcL Neutrophils # 4.7 4.1 (1.6-8.9) K/mcL BMP 10/02/16 10/02/16 Range/Units 16:30 04:20 Sodium 143 (136-145) mEq/L Potassium 3.9 3.8 (3.5-4.5) mEq/L Chloride 111 H (98-109) mEq/L Carbon Dioxide 24 (19-29) mEq/L BUN 24 H D (7-20) mg/dL Creatinine 1.03 (0.57-1.11) mg/dL Glucose 122 H (70-99) mg/dL Calcium 8.7 (8.6-10.8) mg/dL Abnormal lab results RBC 3.32 M/mcL (3.82-4.97) L 10/02/16 16:30 Hgb 8.9 g/dL (11.5-15.4) L 10/02/16 16:30 Hct 29.1 % (35.3-44.9) L 10/02/16 16:30 MCH 26.8 pg (28.0-33.3) L 10/02/16 16:30 MCHC 30.6 g/dL (31.6-35.5) L 10/02/16 16:30 RDW 18.6 % (11.5-14.5) H 10/02/16 16:30 PT 17.8 Seconds (9.4-12.1) H 09/30/16 04:37 APTT 40.3 Seconds (26.0-36.0) H 09/28/16 06:46 ABG pCO2 32 mmHg (35-45) L 10/03/16 03:42 ABG pO2 66 mmHg (85-104) L 10/03/16 03:42 ABG HCO3 19.4 mEQ/L (21-27) L 10/03/16 03:42 ABG O2 Saturation 92 % (95-98) L 10/03/16 03:42 ABG Base Excess -4.9 mEq/L (-2.0 to 3.0) L 10/03/16 03:42 Chloride 111 mEq/L (98-109) H 10/02/16 04:20 BUN 24 mg/dL (7-20) H D 10/02/16 04:20 Est GFR (Non-Af Amer) 54 (> 60) L 10/02/16 04:20 Glucose 122 mg/dL (70-99) H 10/02/16 04:20 POC Glucose 197 (58-89) H 10/03/16 03:41 Calculated Osmolality 301 (280-300) H 10/02/16 04:20 Uric Acid 10.1 mg/dL (2.6-6.0) H 09/30/16 04:37 Magnesium 1.1 mg/dL (1.6-2.6) L 10/02/16 16:30 Troponin I 0.06 ng/mL (0-0.03) H* 09/28/16 01:00 Albumin (PEP) 3.57 g/dL (3.75-5.01) L 09/30/16 04:37 Urine Clarity Turbid (Clear) A 09/28/16 18:30 Ur Specific [place] > 1.030 (1.010-1.025) H 09/28/16 18:30 Urine Protein >=1000 mg/dL (Neg-Trace) H 09/28/16 18:30 Urine Glucose (UA) 100 mg/dL (Normal) H 09/28/16 18:30 Urine Ketones Trace mg/dL (Negative) H 09/28/16 18:30 Urine Bilirubin Small (Negative) H 09/28/16 18:30 Ur Leukocyte Esterase Moderate (Negative) H 09/28/16 18:30 Urine Microscopic WBC TNTC per hpf (0-3) H 09/28/16 18:30 Ur Squamous Epith Cells Many per lpf (None-Few) H 09/28/16 18:30 Amorphous Sediment Moderate (Few) H 09/28/16 18:30 Urine Bacteria Moderate per hpf (None-Few) H 09/28/16 18:30 Urine Yeast Few per hpf (None Seen) H 09/28/16 18:30 Ur Culture Indicated? YES (NO) A 09/28/16 18:30 Urine Total Protein 26 mg/dL (1-14) H 09/30/16 11:25 Stool Occult Blood Positive (Negative) A 09/27/16 13:48 Digoxin 2.4 ng/mL (0.8-2.0) H 09/28/16 06:46 Chest X-Ray 09/27/16 12:53 IMPRESSION: Stable right effusion and lung base consolidation with no new traumatic abnormality. D/ / 09/27/2016 13:28:22 Delonte Casey MD / [facility] Interpreting Provider: Delonte Casey MD Femur X-Ray 09/27/16 13:02 IMPRESSION: No acute fracture. Normal left hip alignment. D/ / 09/27/2016 14:36:56 Delonte Casey MD / [facility] Interpreting Provider: Delonte Casey MD Head CT 09/27/16 13:02 IMPRESSION: 1. No acute intracranial abnormality. D/ / Frank Fuentes MD / Frank Fuentes MD Interpreting Provider: Frank Fuentes MD Pelvis X-Ray 09/27/16 13:02 IMPRESSION: No acute osseous abnormality. D/ / 09/27/2016 14:51:31 Pasha Smith MD / [facility] Interpreting Provider: Pasha Smith MD Cervical Spine CT 09/27/16 13:33 IMPRESSION: No acute abnormality of the cervical spine. Multilevel degenerative changes Large right pleural effusion D/ / Mathew Cerda MD / Mathew Cerda MD Interpreting Provider: Mathew Cerda MD Retroperitoneum Ultrasound 09/28/16 17:00 IMPRESSION: No hydronephrosis noted Nodule is seen superior to the right kidney, likely right adrenal nodule described on prior abdominal CT reports D/ / Wilson Mcrae MD / Wilson Mcrae MD Interpreting Provider: Wilson Mcrae MD
[2016-10-03] MEDS ORDERED: MethylPREDNISolone 40 MG/ML VIAL ONE (03:14)
[2016-10-03] MEDS ORDERED: *HR* Midazolam HCl 2 MG/2 ML VIAL IVP ONE (03:32)
[2016-10-03] MEDS ORDERED: Lacri-Lube 3.5 GM TUBE BOTH EYES PRN ×2 (03:32→03:54)
[2016-10-03] MEDS ORDERED: Acetaminophen 650 MG RECTAL SUPP RC PRN (03:38)
[2016-10-03 03:52] LABS: ABG Base Excess -4.9 mEq/L (-2.0 to 3.0); ABG HCO3 19.4 mEQ/L (21-27); ABG Oxygen Saturation 92 % (95-98); ABG PCO2 32 mmHg (35-45); ABG PH 7.39 pH Units (7.32-7.45); ABG PO2 66 mmHg (85-104); ABG TCO2 20.4 mEq/L (20-26); Blood Gas FiO2 52 %
[2016-10-03] MEDS ORDERED: *HR* FentaNYL (PF) 100 MCG/2 ML VIAL ONE (03:55)
[2016-10-03] MEDS ORDERED: Lacri-Lube 3.5 GM TUBE BOTH EYES SCH (04:00)
[2016-10-03] MEDS: Dexmedetomidine HCl 400 MCG/100 ML MLS IVC SCH (04:33)
[2016-10-03] MEDS: FentaNYL (PF) 1,000 MCG in 0.9 % Sodium Chloride 80 ML IVC SCH ×2 (04:36→18:09)
[2016-10-03] MEDS: 0.9 % Sodium Chloride 1,000 ML IVC SCH (04:36)
[2016-10-03] MEDS: Lacri-Lube 3.5 GM TUBE BOTH EYES SCH ×6 (04:55→23:50)
[2016-10-03] MEDS: Piperacillin/Tazobactam 3.375 GM in D5% in Water (Mini-Bag+) 100 ML IVPB SCH (04:55)
[2016-10-03] MEDS: Ipratropium/Albuterol Neb 3 ML IH SCH ×4 (04:58→23:47)
[2016-10-03 05:53] LABS: ABG Base Excess -2.1 mEq/L (-2.0 to 3.0); ABG HCO3 23.2 mEQ/L (21-27); ABG Oxygen Saturation 99 % (95-98); ABG PCO2 41 mmHg (35-45); ABG PH 7.36 pH Units (7.32-7.45); ABG PO2 129 mmHg (85-104); ABG TCO2 24.5 mEq/L (20-26); Blood Gas FiO2 80 %; Blood Gas PEEP 5 cm H2O; Blood Gas Respiration Rate 12; Blood Gas VT 500 cc
[2016-10-03 06:44] LABS: Alanine Aminotransferase 11 Units/L (0-55); Albumin 3.3 g/dL (3.5-5.0); Alkaline Phosphatase 60 Units/L (38-126); Aspartate Amino Transferase 14 Units/L (5-34); BUN/Creatinine Ratio 18 (6-26); Bilirubin,Total 1.1 mg/dL (0.2-1.2); Blood Urea Nitrogen 19 mg/dL (7-20); Calcium 8.3 mg/dL (8.6-10.8); Carbon Dioxide 21 mEq/L (19-29); Chloride 115 mEq/L (98-109); Globulin 3.2 g/dL (2.4-3.5); Glucose 128 mg/dL (70-99); Osmolality,Calculated 304 (280-300); Potassium 3.9 mEq/L (3.5-4.5); Sodium 145 mEq/L (136-145); Total Protein 6.5 g/dL (6.0-8.3); eGFR For African Americans > 60 (> 60); eGFR For Non-African Americans 54 (> 60)
[2016-10-03 06:56] LABS: Hemoglobin 7.5 g/dL (11.5-15.4); Mean Corpuscular HGB Conc 31.3 g/dL (31.6-35.5); Mean Corpuscular Hemoglobin 27.9 pg (28.0-33.3); Mean Corpuscular Volume 89.2 fL (83.0-100.0); Mean Platelet Volume 10.6 fL (9.4-12.4); Platelet Count 134 K/mcL (140-400); Red Blood Count 2.69 M/mcL (3.82-4.97); Red Cell Distribution Width 18.6 % (11.5-14.5)
[2016-10-03] MEDS ORDERED: Chlorhexidine Rinse 15 ML MOUTHWASH MM SCH (09:00)
[2016-10-03] MEDS ORDERED: *HR* Midazolam HCl 5 MG/5 ML VIAL IVP ONE (09:02)
[2016-10-03] MEDS ORDERED: *HR* Etomidate 40 MG/20 ML VIAL IVP ONE (09:02)
[2016-10-03] MEDS ORDERED: *HR* Succinylcholine 200 MG/10 ML VIAL IVP ONE (09:02)
[2016-10-03] MEDS: Nystatin SUSP 5 ML UD.LIQ PO SCH ×4 (10:10→21:07)
[2016-10-03] MEDS: MethylPREDNISolone 40 MG/ML VIAL IVP SCH (10:10)
[2016-10-03] MEDS: Docusate Oral Soln 100 MG/10 ML UDC GTUBE SCH ×2 (10:10→21:07)
[2016-10-03] MEDS: Cholecalciferol (D-3) 1,000 UNIT TABLET PO SCH (10:10)
[2016-10-03] MEDS: Chlorhexidine Rinse 15 ML MOUTHWASH MM SCH ×2 (10:10→21:07)
[2016-10-03] MEDS: Aspirin Enteric Coated 81 MG Tablet PO SCH (10:10)
[2016-10-03] MEDS: Diltiazem CD (24hr) 120 MG CAPSULE PO SCH (10:11)
[2016-10-03] MEDS: Furosemide 20 MG/2 ML VIAL IVP SCH (10:11)
[2016-10-03] MEDS: Pantoprazole 40 MG VIAL IVP SCH (10:11)
[2016-10-03] MEDS: Insulin LISPRO 300 UNITS/3 ML VIAL SQ SCH ×4 (10:15→20:58)
[2016-10-03] MEDS: Valproic Acid 250 MG CAPSULE PO SCH ×3 (10:15→17:02)
[2016-10-03] MEDS: hydrALAZINE 25 MG TABLET PO SCH ×2 (10:16→17:02)
[2016-10-03] MEDS: Metoprolol XL (24 HR) Succ 25 MG TAB.ER.24H PO SCH (10:16)
--- NOTE | 2016-10-03 10:28 | Pulmonology Consult Note ---
Date of Encounter: 10/03/16 Time of Encounter: 07:35 Assessment and Plan (1) Acute respiratory failure with hypoxia Current Visit: Yes Status: Acute Acute respiratory failure with hypoxia in this particular individual was presumably related to encephalopathy etiology which is uncertain. Patient also has mild hypervolemia based upon her examination as well as chest radiographic analysis and this may also be a contributory factor to acute respiratory failure with hypoxia. Patient will be maintained on ventilatory support and sedation. Given hypervolemia, empiric diuresis will be provided. Depending upon her overall clinical respiratory status, she may be a candidate for early extubation within the next 24-48 hours. The patient reportedly has a history of asthma/COPD (former smoker) and should be maintained on bronchodilator therapy. The severity of obstructive lung disease this particular individual is uncertain. Given resolution of AK I and given clinical findings supporting hypervolemia, IV fluids of been discontinued. Diuretic therapy provided as noted above. There is no clinical evidence currently supportive of infection. ESBL was identified from urine however I do not believe the patient he has active infection at this time and therefore antibiotics will be discontinued. Management was reviewed this morning with the nursing and respiratory therapy. Code(s): J96.01 - Acute respiratory failure with hypoxia SNOMED Code(s): 96546071, 346299067 (2) Atrial flutter with rapid ventricular response Current Visit: No Status: Acute Medical therapy for the same per the cardiology service, note currently sinus rhythm. Code(s): I48.92 - Unspecified atrial flutter SNOMED Code(s): 3312313 (3) Thrombus of left atrial appendage Current Visit: Yes Status: Chronic Previously anticoagulated in light of atrial arrhythmia and this thrombus however, anticoagulation discontinued given acute blood loss anemia due to GI bleed source. SNOMED Code(s): 604992066 History of Present Illness Consult date: 10/03/16 Chief complaint: Acute respiratory failure with hypoxia History of present illness: This 65-year-old female was admitted to the intensive care unit following severe agitation and delirium and presumptive toxic metabolic encephalopathy. Given the severity of her encephalopathic state, she required intubation and initiation of ventilatory support mainly for control of airway. Fairly this patient was hospitalized earlier with GI bleed. She has a known history of colonic polyps and this was a presumptive bleeding source. Furthermore, leading was precipitated by anticoagulation therapy provided for atrial arrhythmia and left atrial clot. Given bleeding, the anticoagulation therapy has been discontinued as this time. Patient also developed acute kidney injury etiology uncertain. This is nearly completely resolved at this time. Review of systems unobtainable from the patient since she is orally intubated and sedated. She currently requires low level ventilatory support. Past Med Surg Social Fam HX - Past Medical History Medical history: asthma, cancer, CHF, diabetes, GI bleed, hyperlipidemia, hypertension Psychiatric history: anxiety - Past Surgical History Surgical History: appendectomy, breast surgery, coronary bypass (CABG) - Social History Smoking Status: Former smoker Smokeless Tobacco Status: No Alcohol use: none Drug use: none - Family History Father Adopted: No Family Member Ethnicity: Non- Living Status: Hx Family Cardiac Disorders: Yes Hx Family Respiratory Disorders: Yes Hx Family Cancer: Yes (Liver cancer) Hx Family GI Disorders: No Hx Family Endocrine Disorder: Yes Hx Family Neuromuscular Disorders: No Hx Family Neurologic Disorders: No Hx Family HEENT Disorders: No Hx Family Autoimmune Disorders: No Medications and Allergies Cholecalciferol (D-3) [Vitamin D] 2,000 unit PO DAILY 04/18/16 [History] Diphenoxylate/Atropine [Lomotil 2.5 mg/0.025 mg] 1 tab PO BID PRN 04/18/16 [ History] Gabapentin [Neurontin] 900 mg PO HS 04/18/16 [History] Losartan/Hydrochlorothiazide [Hyzaar 100-12.5 Tablet] 1 tab PO DAILY 04/18/16 [ History] Metformin HCl [Metformin HCl ER] 500 mg PO BID 04/18/16 [History] Aspirin Enteric Coated [Aspirin EC] 81 mg PO DAILY #30 tablet. 06/14/16 [Rx] Digoxin [Lanoxin] 0.125 mg PO DAILY #30 tablet 06/14/16 [Rx] Citalopram Hydrobromide [Celexa] 30 mg PO DAILY 07/23/16 [History] Metoprolol Succinate 200 mg PO BID 07/23/16 [History] Warfarin [Coumadin] 2 mg PO SUFR 07/23/16 [History] Warfarin [Coumadin] 4 mg PO MOTUWETHSA 07/23/16 [History] Diltiazem CD (24hr) [Cardizem CD] 120 mg PO DAILY #30 cap.er.24h 07/26/16 [Rx] Ferrous Sulfate 325 mg PO BIDWM #30 tablet 09/10/16 [Rx] Albuterol Sulfate [Albuterol Inhaler] 2 puff IH Q4H PRN 09/27/16 [History] Amoxicillin [Amoxil] 500 mg PO QID 09/27/16 [History] Atorvastatin Calcium [Lipitor] 20 mg PO HS 09/27/16 [History] Clarithromycin [Biaxin] 500 mg PO BID 09/27/16 [History] Fluticasone/Salmeterol [Advair Hfa 230-21 Mcg Inhaler] 2 puff IH BID 09/27/16 [ History] Pantoprazole Sodium [Protonix] 40 mg PO BID 09/27/16 [History] Allergies No Known Allergies Allergy (Verified 06/12/16 09:27) ROS unobtainable: due to endotracheal tube All Systems: A 10-system review of systems was performed and is negative for pertinent findings except as documented above in the HPI. Physical Examination Vital Signs: Vital Signs, Last 4 Hours Temp Pulse Resp BP Pulse Ox 10/03/16 08:40 17 129/69 99 10/03/16 07:48 98.3 F 10/03/16 07:30 66 19 124/64 99 10/03/16 06:27 99 General appearance: other (Orally intubated sedated) Eyes: nonicteric Neck: supple, no JVD Auscultation: bilateral: diminished breath sounds (Dullness to percussion right base, reduced breath sounds right base faint crackles lower lung zones) Cardiovascular: irregular rhythm Gastrointestinal: normoactive bowel sounds, non-distended Extremities: no cyanosis, edema (Mild extremity edema) Musculoskeletal: no deformities unable to assess due to mental status Ventilator Settings Ventilator Settings: Ventilator Settings, Last 8 Hours Ventilator Mode VC+ Ventilator Mode VC+ Ventilator Mode VC+ Ventilator Mode VC+ Ventilator Mode VC+ Ventilator Mode VC+ Ventilator Mode VC+ Ventilator Mode VC+ Ventilator Tidal Volume 500 Setting Ventilator Tidal Volume 500 Setting Ventilator Tidal Volume 500 Setting Ventilator Tidal Volume 500 Setting Ventilator Tidal Volume 500 Setting Ventilator Tidal Volume 500 Setting Ventilator Tidal Volume 500 Setting Ventilator Tidal Volume 500 Setting Ventilator Respiratory Rate 12 Setting Ventilator Respiratory Rate 12 Setting Ventilator Respiratory Rate 12 Setting Ventilator Respiratory Rate 12 Setting Ventilator Respiratory Rate 12 Setting Ventilator Respiratory Rate 12 Setting Ventilator Respiratory Rate 12 Setting Actual Respiratory Rate 19 Actual Respiratory Rate 19 Actual Respiratory Rate 12 Actual Respiratory Rate 12 Actual Respiratory Rate 23 Actual Respiratory Rate 16 Positive End Expiratory 5 Pressure Positive End Expiratory 5 Pressure Positive End Expiratory 5 Pressure Positive End Expiratory 5 Pressure Positive End Expiratory 5 Pressure Positive End Expiratory 5 Pressure Positive End Expiratory 5 Pressure Positive End Expiratory 5 Pressure Peak Inspiratory Airway 20 Pressure Peak Inspiratory Airway 20 Pressure Peak Inspiratory Airway 23 Pressure Peak Inspiratory Airway 23 Pressure Peak Inspiratory Airway 26 Pressure Peak Inspiratory Airway 37 Pressure Results - Laboratory Findings CBC and BMP: 10/03/16 06:25 10/03/16 06:25 ABG ABG pH 7.36 pH Units (7.32-7.45) 10/03/16 05:42 ABG pCO2 41 mmHg (35-45) 10/03/16 05:42 ABG pO2 129 mmHg (85-104) H 10/03/16 05:42 ABG O2 Saturation 99 % (95-98) H 10/03/16 05:42 PT/INR, D-dimer PT 17.8 Seconds (9.4-12.1) H 09/30/16 04:37 Abnormal lab findings: Abnormal lab results RBC 2.69 M/mcL (3.82-4.97) L 10/03/16 06:25 Hgb 7.5 g/dL (11.5-15.4) L 10/03/16 06:25 Hct 24.0 % (35.3-44.9) L 10/03/16 06:25 MCH 27.9 pg (28.0-33.3) L 10/03/16 06:25 MCHC 31.3 g/dL (31.6-35.5) L 10/03/16 06:25 RDW 18.6 % (11.5-14.5) H 10/03/16 06:25 Plt Count 134 K/mcL (140-400) L 10/03/16 06:25 PT 17.8 Seconds (9.4-12.1) H 09/30/16 04:37 APTT 40.3 Seconds (26.0-36.0) H 09/28/16 06:46 ABG pO2 129 mmHg (85-104) H 10/03/16 05:42 ABG O2 Saturation 99 % (95-98) H 10/03/16 05:42 ABG Base Excess -2.1 mEq/L (-2.0 to 3.0) L 10/03/16 05:42 Chloride 115 mEq/L (98-109) H 10/03/16 06:25 Est GFR (Non-Af Amer) 54 (> 60) L 10/03/16 06:25 Glucose 128 mg/dL (70-99) H 10/03/16 06:25 POC Glucose 197 (58-89) H 10/03/16 03:41 Calculated Osmolality 304 (280-300) H 10/03/16 06:25 Uric Acid 10.1 mg/dL (2.6-6.0) H 09/30/16 04:37 Calcium 8.3 mg/dL (8.6-10.8) L 10/03/16 06:25 Magnesium 1.1 mg/dL (1.6-2.6) L 10/02/16 16:30 Troponin I 0.06 ng/mL (0-0.03) H* 09/28/16 01:00 Albumin 3.3 g/dL (3.5-5.0) L 10/03/16 06:25 Albumin (PEP) 3.57 g/dL (3.75-5.01) L 09/30/16 04:37 Albumin/Globulin Ratio 1.0 (1.1-2.2) L 10/03/16 06:25 Urine Clarity Turbid (Clear) A 09/28/16 18:30 Ur Specific [place] > 1.030 (1.010-1.025) H 09/28/16 18:30 Urine Protein >=1000 mg/dL (Neg-Trace) H 09/28/16 18:30 Urine Glucose (UA) 100 mg/dL (Normal) H 09/28/16 18:30 Urine Ketones Trace mg/dL (Negative) H 09/28/16 18:30 Urine Bilirubin Small (Negative) H 09/28/16 18:30 Ur Leukocyte Esterase Moderate (Negative) H 09/28/16 18:30 Urine Microscopic WBC TNTC per hpf (0-3) H 09/28/16 18:30 Ur Squamous Epith Cells Many per lpf (None-Few) H 09/28/16 18:30 Amorphous Sediment Moderate (Few) H 09/28/16 18:30 Urine Bacteria Moderate per hpf (None-Few) H 09/28/16 18:30 Urine Yeast Few per hpf (None Seen) H 09/28/16 18:30 Ur Culture Indicated? YES (NO) A 09/28/16 18:30 Urine Total Protein 26 mg/dL (1-14) H 09/30/16 11:25 Stool Occult Blood Positive (Negative) A 09/27/16 13:48 Digoxin 2.4 ng/mL (0.8-2.0) H 09/28/16 06:46 - Diagnostic Findings Chest x-ray: image reviewed (Current chest x-ray reveals borderline cardiomegaly endotracheal tube in position and small right pleural effusion perhaps small left pleural effusion as well) - Clinical Findings Intake & Output: Intake & Output 10/02/16 10/03/16 10/03/16 23:59 07:59 15:59 Intake Total 100 / 100 1113 / 1113 92 / 92 Output Total 0 / 0 Balance 100 / 100 1113 / 1113 92 / 92 Weight 102.512 kg Consult Discharge Plan - Plan Referrals: Ward Mcmanus MD [Primary Care Provider] - 10/08/16 2:00 pm () Eleni Edge CNP [Partnered Physician] - 10/12/16 8:45 am (in [place] office )
[2016-10-03] MEDS: Gabapentin 300 MG CAPSULE PO SCH (21:07)
[2016-10-03] MEDS: Melatonin 3 MG TABLET PO SCH (21:08)
[2016-10-04] MEDS: hydrALAZINE 25 MG TABLET PO SCH ×4 (01:02→23:50)
[2016-10-04] MEDS: Lacri-Lube 3.5 GM TUBE BOTH EYES SCH ×6 (03:42→23:53)
[2016-10-04] MEDS: FentaNYL (PF) 1,000 MCG in 0.9 % Sodium Chloride 80 ML IVC SCH ×3 (03:53→20:00)
[2016-10-04] MEDS: Dexmedetomidine HCl 400 MCG/100 ML MLS IVC SCH ×2 (05:06→20:07)
[2016-10-04] MEDS: *HR* Enoxaparin 40 MG/0.4 ML SYRINGE SQ SCH (05:29)
[2016-10-04] MEDS: Ipratropium/Albuterol Neb 3 ML IH SCH ×5 (05:45→21:13)
--- NOTE | 2016-10-04 07:36 | Pulmonology Progress Note ---
Date of Encounter: 10/04/16 Time of Encounter: 07:36 Assessment and Plan (1) Toxic metabolic encephalopathy Current Visit: Yes Status: Acute Neuropsych: Possible toxic metabolic encephalopathy versus encephalopathy related to sepsis. Head CT pending today no seizure-like activity to warrant EEG and patient no new focal deficits on examination we will continue to give sedation for agitation while on ventilator but wean this as much as possible for possible Pulm: Intubated for altered mental status with concern for impending respiratory failure. Minimal ventilator settings today acceptable oxygenation ventilation continue to follow spontaneous breathing trial later in the day we will continue daily sedation holidays Cards: Long-standing atrial flutter currently rate controlled on medication cardiology is following additionally she has history of mural thrombus which on last echo was normal longer there along. She also has a history of heart failure with reduced ejection fraction but no evidence of acute decompensation FEN-GI: Ppi holding anticoagulation for this per family request present for risk of bleeding prophylaxis given the concern for gastrointestinal hemorrhage I will H&H has been stable and there is no bloody output from NG tube at present. Renal: AK I which improved creatinine has a slight bump overnight possibly secondary to volume depletion. Giving trial of fluids today. Nephrology has seen the patient earlier in the week but had signed off may reconsult based upon clinical course check renal function daily and replace electrolytes per protocol ID: sepsis with ESBL UTI starting ertapenem today follow-up sensitivities speciation. Heme/Onc: DVT prophylaxis given. Anemia is stable. Platelets stable Endo: Glucose monitored Integ/MSK: Skin care per ICU protocol to prevent ulcers CODE: full code I have updated the patient's familly at bedside (2) Sepsis Current Visit: Yes Status: Acute Qualifiers: Sepsis type: sepsis due to unspecified organism Qualified Code(s): A41.9 - Sepsis, unspecified organism (3) ARF (acute renal failure) Current Visit: Yes Status: Acute Qualifiers: Acute renal failure type: unspecified Qualified Code(s): N17.9 - Acute kidney failure, unspecified (4) Acute blood loss anemia Current Visit: Yes Status: Acute (5) Acute respiratory failure with hypoxia Current Visit: Yes Status: Acute (6) Anemia Current Visit: Yes Status: Acute Qualifiers: Anemia type: unspecified type Qualified Code(s): D64.9 - Anemia, unspecified (7) UTI (urinary tract infection) Current Visit: Yes Status: Acute Qualifiers: Urinary tract infection type: acute cystitis Hematuria presence: without hematuria Qualified Code(s): N30.00 - Acute cystitis without hematuria (8) Atrial flutter Current Visit: Yes Status: Chronic Qualifiers: Atrial flutter type: typical Qualified Code(s): I48.3 - Typical atrial flutter (9) Thrombus of left atrial appendage Current Visit: Yes Status: Chronic (10) DVT prophylaxis Current Visit: No Status: Acute (11) Anticoagulated on Coumadin Current Visit: No Status: Chronic (12) CAD (coronary artery disease) Current Visit: No Status: Chronic Qualifiers: Coronary Disease-Associated Artery/Lesion type: bypass graft [place] vs. transplanted heart: [place] heart Associated angina: without angina Qualified Code(s): I25.810 - Atherosclerosis of coronary artery bypass graft(s) without angina pectoris (13) Chronic kidney disease Current Visit: No Status: Chronic Qualifiers: Chronic kidney disease stage: stage 3 (moderate) Qualified Code(s): N18.3 - Chronic kidney disease, stage 3 (moderate) (14) Morbid obesity Current Visit: No Status: Chronic Qualifiers: Obesity type: unspecified obesity type Qualified Code(s): E66.01 - Morbid ( severe) obesity due to excess calories Subjective Principal diagnosis: ARF, acute blood loss anemia Interval history: Patient remains sedated and intubated on the ventilator. Her hemodynamics and urine output are appropriate. Nursing staff has not voiced any concerns over the course of the evening. Objective PUL Vital signs: Last Vital Signs Temp 97.6 F 10/04/16 07:28 Pulse 83 10/04/16 07:28 Resp 15 10/04/16 07:28 BP 122/57 10/04/16 07:28 Pulse Ox 100 10/04/16 07:28 General appearance: other (sedated for vent. is noted to move all ext's ) Eyes: nonicteric Effort: normal Auscultation: bilateral: clear Cardiovascular: regular rate and rhythm Gastrointestinal: normoactive bowel sounds Extremities: no edema non-focal exam, pupils equal and round Ventilator Settings Ventilator Settings: Ventilator Settings, Last 8 Hours Ventilator Mode VC+ Ventilator Mode VC+ Ventilator Mode VC+ Ventilator Mode VC+ Ventilator Mode VC+ Ventilator Mode VC+ Ventilator Mode VC+ Ventilator Mode VC+ Ventilator Mode VC+ Ventilator Mode VC+ Ventilator Mode VC+ Ventilator Mode VC+ Ventilator Tidal Volume 500 Setting Ventilator Tidal Volume 500 Setting Ventilator Tidal Volume 500 Setting Ventilator Tidal Volume 500 Setting Ventilator Tidal Volume 500 Setting Ventilator Tidal Volume 500 Setting Ventilator Tidal Volume 500 Setting Ventilator Tidal Volume 500 Setting Ventilator Tidal Volume 500 Setting Ventilator Tidal Volume 500 Setting Ventilator Tidal Volume 500 Setting Ventilator Tidal Volume 500 Setting Ventilator Respiratory Rate 12 Setting Ventilator Respiratory Rate 12 Setting Ventilator Respiratory Rate 12 Setting Ventilator Respiratory Rate 12 Setting Ventilator Respiratory Rate 12 Setting Ventilator Respiratory Rate 12 Setting Ventilator Respiratory Rate 12 Setting Ventilator Respiratory Rate 12 Setting Ventilator Respiratory Rate 12 Setting Ventilator Respiratory Rate 12 Setting Ventilator Respiratory Rate 12 Setting Ventilator Respiratory Rate 12 Setting Actual Respiratory Rate 15 Actual Respiratory Rate 16 Actual Respiratory Rate 13 Actual Respiratory Rate 12 Actual Respiratory Rate 12 Actual Respiratory Rate 13 Actual Respiratory Rate 13 Actual Respiratory Rate 12 Actual Respiratory Rate 13 Actual Respiratory Rate 12 Actual Respiratory Rate 19 Actual Respiratory Rate 14 Positive End Expiratory 5 Pressure Positive End Expiratory 5 Pressure Positive End Expiratory 5 Pressure Positive End Expiratory 5 Pressure Positive End Expiratory 5 Pressure Positive End Expiratory 5 Pressure Positive End Expiratory 5 Pressure Positive End Expiratory 5 Pressure Positive End Expiratory 5 Pressure Positive End Expiratory 5 Pressure Positive End Expiratory 5 Pressure Positive End Expiratory 5 Pressure Peak Inspiratory Airway 17 Pressure Peak Inspiratory Airway 18 Pressure Peak Inspiratory Airway 33 Pressure Peak Inspiratory Airway 35 Pressure Peak Inspiratory Airway 38 Pressure Peak Inspiratory Airway 30 Pressure Peak Inspiratory Airway 14 Pressure Peak Inspiratory Airway 26 Pressure Peak Inspiratory Airway 35 Pressure Peak Inspiratory Airway 37 Pressure Peak Inspiratory Airway 14 Pressure Peak Inspiratory Airway 39 Pressure Results - Laboratory Findings CBC and BMP: 10/04/16 10:50 10/04/16 10:50 ABG ABG pH 7.36 pH Units (7.32-7.45) 10/03/16 05:42 ABG pCO2 41 mmHg (35-45) 10/03/16 05:42 ABG pO2 129 mmHg (85-104) H 10/03/16 05:42 ABG O2 Saturation 99 % (95-98) H 10/03/16 05:42 PT/INR, D-dimer PT 17.8 Seconds (9.4-12.1) H 09/30/16 04:37 Abnormal lab findings: Abnormal lab results RBC 2.69 M/mcL (3.82-4.97) L 10/03/16 06:25 Hgb 7.5 g/dL (11.5-15.4) L 10/03/16 06:25 Hct 24.0 % (35.3-44.9) L 10/03/16 06:25 MCH 27.9 pg (28.0-33.3) L 10/03/16 06:25 MCHC 31.3 g/dL (31.6-35.5) L 10/03/16 06:25 RDW 18.6 % (11.5-14.5) H 10/03/16 06:25 Plt Count 134 K/mcL (140-400) L 10/03/16 06:25 PT 17.8 Seconds (9.4-12.1) H 09/30/16 04:37 APTT 40.3 Seconds (26.0-36.0) H 09/28/16 06:46 ABG pO2 129 mmHg (85-104) H 10/03/16 05:42 ABG O2 Saturation 99 % (95-98) H 10/03/16 05:42 ABG Base Excess -2.1 mEq/L (-2.0 to 3.0) L 10/03/16 05:42 Chloride 115 mEq/L (98-109) H 10/03/16 06:25 Est GFR (Non-Af Amer) 54 (> 60) L 10/03/16 06:25 Glucose 128 mg/dL (70-99) H 10/03/16 06:25 POC Glucose 130 (58-89) H 10/04/16 04:07 Calculated Osmolality 304 (280-300) H 10/03/16 06:25 Uric Acid 10.1 mg/dL (2.6-6.0) H 09/30/16 04:37 Calcium 8.3 mg/dL (8.6-10.8) L 10/03/16 06:25 Magnesium 1.1 mg/dL (1.6-2.6) L 10/02/16 16:30 Troponin I 0.06 ng/mL (0-0.03) H* 09/28/16 01:00 Albumin 3.3 g/dL (3.5-5.0) L 10/03/16 06:25 Albumin (PEP) 3.57 g/dL (3.75-5.01) L 09/30/16 04:37 Albumin/Globulin Ratio 1.0 (1.1-2.2) L 10/03/16 06:25 Urine Clarity Turbid (Clear) A 09/28/16 18:30 Ur Specific [place] > 1.030 (1.010-1.025) H 09/28/16 18:30 Urine Protein >=1000 mg/dL (Neg-Trace) H 09/28/16 18:30 Urine Glucose (UA) 100 mg/dL (Normal) H 09/28/16 18:30 Urine Ketones Trace mg/dL (Negative) H 09/28/16 18:30 Urine Bilirubin Small (Negative) H 09/28/16 18:30 Ur Leukocyte Esterase Moderate (Negative) H 09/28/16 18:30 Urine Microscopic WBC TNTC per hpf (0-3) H 09/28/16 18:30 Ur Squamous Epith Cells Many per lpf (None-Few) H 09/28/16 18:30 Amorphous Sediment Moderate (Few) H 09/28/16 18:30 Urine Bacteria Moderate per hpf (None-Few) H 09/28/16 18:30 Urine Yeast Few per hpf (None Seen) H 09/28/16 18:30 Ur Culture Indicated? YES (NO) A 09/28/16 18:30 Urine Total Protein 26 mg/dL (1-14) H 09/30/16 11:25 Stool Occult Blood Positive (Negative) A 09/27/16 13:48 Digoxin 2.4 ng/mL (0.8-2.0) H 09/28/16 06:46 - Clinical Findings Intake & Output: Intake & Output 10/03/16 10/03/16 10/04/16 15:59 23:59 07:59 Intake Total 192 / 192 113 / 113 287 / 287 Output Total 150 / 150 200 / 200 100 / 100 Balance 42 / 42 -87 / -87 187 / 187 Weight 104.689 kg - VTE Documentation of Mechanical Device: Intermittent pneumatic compression device Consult Discharge Plan - Plan Referrals: Ward Mcmanus MD [Primary Care Provider] - 10/08/16 2:00 pm () Eleni Edge CNP [Partnered Physician] - 10/12/16 8:45 am (in [place] office )
[2016-10-04] MEDS: Furosemide 20 MG/2 ML VIAL IVP SCH (07:49)
[2016-10-04] MEDS: Nystatin SUSP 5 ML UD.LIQ PO SCH ×4 (07:49→21:19)
[2016-10-04] MEDS: Pantoprazole 40 MG VIAL IVP SCH (07:49)
[2016-10-04] MEDS: Chlorhexidine Rinse 15 ML MOUTHWASH MM SCH ×2 (07:49→21:17)
[2016-10-04] MEDS: MethylPREDNISolone 40 MG/ML VIAL IVP SCH (07:49)
[2016-10-04] MEDS: Docusate Oral Soln 100 MG/10 ML UDC GTUBE SCH ×2 (07:49→21:17)
[2016-10-04] MEDS: Aspirin Enteric Coated 81 MG Tablet PO SCH (07:50)
[2016-10-04] MEDS: Cholecalciferol (D-3) 1,000 UNIT TABLET PO SCH (07:50)
[2016-10-04] MEDS: Valproic Acid 250 MG CAPSULE PO SCH ×3 (07:50→17:30)
[2016-10-04] MEDS: Insulin LISPRO 300 UNITS/3 ML VIAL SQ SCH ×4 (08:01→21:18)
[2016-10-04 08:08] LABS: ABG Base Excess -2.6 mEq/L (-2.0 to 3.0); ABG HCO3 23.2 mEQ/L (21-27); ABG Oxygen Saturation 97 % (95-98); ABG PCO2 44 mmHg (35-45); ABG PH 7.33 pH Units (7.32-7.45); ABG PO2 96 mmHg (85-104); ABG TCO2 24.6 mEq/L (20-26)
[2016-10-04 08:09] LABS: Blood Gas FiO2 40 %
--- NOTE | 2016-10-04 09:05 | Electrocardiograph Report ---
[place] [id number] Test Date: 2016-10-02 Pat Name: Cass Hernández Department: 112 Room: [facility] Gender: F Sonography Technologist: : 1950 Requested By: Michael Nicole Order Number: [id number] Reading MD: Jack Wilson MD Measurements Intervals [place] Rate: 102 P: [place]: 0 QRS: -31 QRSD: 82 T: 129 QT: 306 QTc: 365 Interpretive Statements sinus rhythm with pvcs MARKED LEFT AXIS DEVIATION Poor R wave progression Electronically Signed On 10-04-2016 9:03:32 EDT by Jack Wilson MD
[2016-10-04 11:04] LABS: Basophils % 0.2 %; Hematocrit 26.8 % (35.3-44.9); Hemoglobin 7.9 g/dL (11.5-15.4); Immature Granulocytes % 0.7 % (0-4); Lymphocytes # 0.6 K/mcL (0.6-4.6); Lymphocytes % 10.2 %; Mean Corpuscular HGB Conc 29.5 g/dL (31.6-35.5); Mean Corpuscular Hemoglobin 26.6 pg (28.0-33.3); Mean Corpuscular Volume 90.2 fL (83.0-100.0); Mean Platelet Volume 10.6 fL (9.4-12.4); Monocytes # 0.4 K/mcL (0.0-1.3); Monocytes % 6.5 %; Neutrophils # 4.8 K/mcL (1.6-8.9); Platelet Count 112 K/mcL (140-400); Red Blood Count 2.97 M/mcL (3.82-4.97); Red Cell Distribution Width 19.5 % (11.5-14.5); Segmented Neutrophils % 82.4 %
[2016-10-04 11:13] LABS: Calcium 9.3 mg/dL (8.6-10.8); Potassium 3.9 mEq/L (3.5-4.5)
[2016-10-04] MEDS: Ertapenem 1,000 MG in 0.9 % Sodium Chloride Mini Bag 100 ML IVPB SCH (13:00)
[2016-10-04 13:49] LABS: INR 1.6; Prothrombin Time 17.3 Seconds (9.4-12.1)
[2016-10-04 13:52] LABS: Activated Partial Thrombo Time 33.3 Seconds (26.0-36.0)
[2016-10-04] MEDS ORDERED: 0.9 % Sodium Chloride 1,000 ML ONE (14:49)
[2016-10-04] MEDS ORDERED: 0.9 % Sodium Chloride 1,000 ML IVC ONE (15:44)
[2016-10-04] MEDS: Melatonin 3 MG TABLET PO SCH (21:19)
[2016-10-04] MEDS: Gabapentin 300 MG CAPSULE PO SCH (21:19)
[2016-10-05] MEDS: FentaNYL (PF) 1,000 MCG in 0.9 % Sodium Chloride 80 ML IVC SCH ×3 (02:06→22:01)
[2016-10-05] MEDS: Lacri-Lube 3.5 GM TUBE BOTH EYES SCH ×6 (03:51→23:54)
[2016-10-05] MEDS: Ipratropium/Albuterol Neb 3 ML IH SCH ×3 (04:06→15:34)
[2016-10-05 04:10] LABS: ABG Base Excess -4.7 mEq/L (-2.0 to 3.0); ABG Oxygen Saturation 90 % (95-98); ABG PCO2 55 mmHg (35-45); ABG PH 7.23 pH Units (7.32-7.45); ABG PO2 70 mmHg (85-104); ABG TCO2 24.7 mEq/L (20-26)
[2016-10-05 04:11] LABS: Blood Gas FiO2 30 %
[2016-10-05 04:25] LABS: Basophils % 0.2 %; Hematocrit 30.2 % (35.3-44.9); Immature Granulocytes % 1.7 % (0-4); Lymphocytes # 1.7 K/mcL (0.6-4.6); Lymphocytes % 10.4 %; Mean Corpuscular HGB Conc 29.8 g/dL (31.6-35.5); Mean Corpuscular Hemoglobin 27.8 pg (28.0-33.3); Mean Corpuscular Volume 93.2 fL (83.0-100.0); Mean Platelet Volume 10.6 fL (9.4-12.4); Monocytes # 1.7 K/mcL (0.0-1.3); Monocytes % 10.3 %; Neutrophils # 12.5 K/mcL (1.6-8.9); Platelet Count 237 K/mcL (140-400); Red Blood Count 3.24 M/mcL (3.82-4.97); Segmented Neutrophils % 77.4 %
[2016-10-05] MEDS: *HR* Enoxaparin 40 MG/0.4 ML SYRINGE SQ SCH (04:33)
[2016-10-05 04:49] LABS: Calcium 9.5 mg/dL (8.6-10.8); Potassium 4.1 mEq/L (3.5-4.5)
[2016-10-05] MEDS: Aspirin Enteric Coated 81 MG Tablet PO SCH (08:30)
[2016-10-05] MEDS: Chlorhexidine Rinse 15 ML MOUTHWASH MM SCH ×2 (08:30→20:49)
[2016-10-05] MEDS: hydrALAZINE 25 MG TABLET PO SCH ×3 (08:30→23:54)
[2016-10-05] MEDS: Cholecalciferol (D-3) 1,000 UNIT TABLET PO SCH (08:30)
[2016-10-05] MEDS: MethylPREDNISolone 40 MG/ML VIAL IVP SCH (08:31)
[2016-10-05] MEDS: Docusate Oral Soln 100 MG/10 ML UDC GTUBE SCH ×2 (08:31→20:49)
[2016-10-05] MEDS: Pantoprazole 40 MG VIAL IVP SCH (08:31)
[2016-10-05] MEDS: Nystatin SUSP 5 ML UD.LIQ PO SCH ×4 (08:31→20:49)
[2016-10-05] MEDS: Furosemide 20 MG/2 ML VIAL IVP SCH (08:31)
[2016-10-05] MEDS: Insulin LISPRO 300 UNITS/3 ML VIAL SQ SCH ×4 (09:13→20:57)
--- NOTE | 2016-10-05 10:01 | Pulmonology Progress Note ---
Date of Encounter: 10/05/16 Time of Encounter: 10:00 Assessment and Plan (1) Toxic metabolic encephalopathy Current Visit: Yes Status: Acute Neuropsych: Possible toxic metabolic encephalopathy (primarily medication) versus encephalopathy related to sepsis. [place] Head CT done yesterday without acute process. Remains lethargic but slowly improving ability to move all ext's and occasionally follow simple commands. Neurontin held as well as antiepileptic (given empirically) as no evidence of seizure activity. Pulm: Intubated for altered mental status with concern for impending respiratory failure. Minimal ventilator settings today acceptable oxygenation ventilation continue to follow spontaneous breathing trial later in the day we will continue daily sedation holidays Cards: Long-standing atrial flutter currently rate controlled on medication cardiology is following additionally she has history of mural thrombus which on last echo was normal longer present. HFpEF but not currently decompensated. Holding anticoagulation for aflutter at present per families request given bleeding risk. FEN-GI: GI prophylaxis given. Renal: FRAN with appropriate UOP. check elecrolytes BID. Renally dose all meds ID: sepsis with ESBL UTI cont ertapenem today follow-up sensitivities speciation. Heme/Onc: DVT prophylaxis given. Anemia is stable. Platelets stable Endo: Glucose monitored Integ/MSK: Skin care per ICU protocol to prevent ulcers CODE: full code I have updated the patient's familly (daughter and Son in Law) at bedside (2) Sepsis Current Visit: Yes Status: Acute Qualifiers: Sepsis type: sepsis due to unspecified organism Qualified Code(s): A41.9 - Sepsis, unspecified organism (3) ARF (acute renal failure) Current Visit: Yes Status: Acute Qualifiers: Acute renal failure type: unspecified Qualified Code(s): N17.9 - Acute kidney failure, unspecified (4) Acute blood loss anemia Current Visit: Yes Status: Acute (5) Acute respiratory failure with hypoxia Current Visit: Yes Status: Acute (6) Anemia Current Visit: Yes Status: Acute Qualifiers: Anemia type: unspecified type Qualified Code(s): D64.9 - Anemia, unspecified (7) UTI (urinary tract infection) Current Visit: Yes Status: Acute Qualifiers: Urinary tract infection type: acute cystitis Hematuria presence: without hematuria Qualified Code(s): N30.00 - Acute cystitis without hematuria (8) Atrial flutter Current Visit: Yes Status: Chronic Qualifiers: Atrial flutter type: typical Qualified Code(s): I48.3 - Typical atrial flutter (9) Thrombus of left atrial appendage Current Visit: Yes Status: Chronic (10) DVT prophylaxis Current Visit: No Status: Acute (11) Anticoagulated on Coumadin Current Visit: No Status: Chronic (12) CAD (coronary artery disease) Current Visit: No Status: Chronic Qualifiers: Coronary Disease-Associated Artery/Lesion type: bypass graft [place] vs. transplanted heart: [place] heart Associated angina: without angina Qualified Code(s): I25.810 - Atherosclerosis of coronary artery bypass graft(s) without angina pectoris (13) Chronic kidney disease Current Visit: No Status: Chronic Qualifiers: Chronic kidney disease stage: stage 3 (moderate) Qualified Code(s): N18.3 - Chronic kidney disease, stage 3 (moderate) (14) Morbid obesity Current Visit: No Status: Chronic Qualifiers: Obesity type: unspecified obesity type Qualified Code(s): E66.01 - Morbid ( severe) obesity due to excess calories Subjective Principal diagnosis: ARF, acute blood loss anemia Interval history: Sedation has been decreased significantly but patient still very lethargic and unable to follow simple commands consistently. She remains hemodynamically stable with appropriate UOP. Objective PUL Vital signs: Last Vital Signs Temp 99.2 F 10/05/16 07:57 Pulse 124 10/05/16 09:00 Resp 19 10/05/16 09:46 BP 161/74 10/05/16 09:00 Pulse Ox 94 10/05/16 09:46 General appearance: no acute distress, lethargic Eyes: nonicteric Auscultation: bilateral: clear Cardiovascular: regular rate and rhythm Gastrointestinal: normoactive bowel sounds, soft Integumentary: normal Extremities: no edema non-focal exam, pupils equal and round Ventilator Settings Ventilator Settings: Ventilator Settings, Last 8 Hours Ventilator Mode A/C Ventilator Mode A/C Ventilator Mode A/C Ventilator Mode A/C Ventilator Mode A/C Ventilator Mode A/C Ventilator Mode A/C Ventilator Mode A/C Ventilator Mode VC+ Ventilator Mode A/C Ventilator Mode A/C Ventilator Tidal Volume 420 Setting Ventilator Tidal Volume 420 Setting Ventilator Tidal Volume 420 Setting Ventilator Tidal Volume 420 Setting Ventilator Tidal Volume 500 Setting Ventilator Tidal Volume 500 Setting Ventilator Tidal Volume 420 Setting Ventilator Tidal Volume 500 Setting Ventilator Tidal Volume 420 Setting Ventilator Tidal Volume 500 Setting Ventilator Tidal Volume 420 Setting Ventilator Respiratory Rate 16 Setting Ventilator Respiratory Rate 16 Setting Ventilator Respiratory Rate 16 Setting Ventilator Respiratory Rate 16 Setting Ventilator Respiratory Rate 12 Setting Ventilator Respiratory Rate 12 Setting Ventilator Respiratory Rate 12 Setting Ventilator Respiratory Rate 12 Setting Ventilator Respiratory Rate 12 Setting Ventilator Respiratory Rate 12 Setting Ventilator Respiratory Rate 16 Setting Actual Respiratory Rate 19 Actual Respiratory Rate 19 Actual Respiratory Rate 16 Actual Respiratory Rate 20 Actual Respiratory Rate 16 Actual Respiratory Rate 18 Actual Respiratory Rate 19 Actual Respiratory Rate 21 Actual Respiratory Rate 16 Actual Respiratory Rate 16 Positive End Expiratory 5 Pressure Positive End Expiratory 5 Pressure Positive End Expiratory 5 Pressure Positive End Expiratory 5 Pressure Positive End Expiratory 5 Pressure Positive End Expiratory 5 Pressure Positive End Expiratory 5 Pressure Positive End Expiratory 5 Pressure Positive End Expiratory 5 Pressure Positive End Expiratory 5 Pressure Positive End Expiratory 5 Pressure Peak Inspiratory Airway 18 Pressure Peak Inspiratory Airway 25 Pressure Peak Inspiratory Airway 26 Pressure Peak Inspiratory Airway 26 Pressure Peak Inspiratory Airway 26 Pressure Peak Inspiratory Airway 27 Pressure Peak Inspiratory Airway 35 Pressure Peak Inspiratory Airway 33 Pressure Peak Inspiratory Airway 32 Pressure Peak Inspiratory Airway 32 Pressure Results - Laboratory Findings CBC and BMP: 10/05/16 03:56 10/05/16 03:56 ABG ABG pH 7.23 pH Units (7.32-7.45) L 10/05/16 03:56 ABG pCO2 55 mmHg (35-45) H 10/05/16 03:56 ABG pO2 70 mmHg (85-104) L 10/05/16 03:56 ABG O2 Saturation 90 % (95-98) L 10/05/16 03:56 PT/INR, D-dimer PT 17.3 Seconds (9.4-12.1) H 10/04/16 13:23 Abnormal lab findings: Abnormal lab results WBC 16.2 K/mcL (4.3-11.1) H D 10/05/16 03:56 RBC 3.24 M/mcL (3.82-4.97) L 10/05/16 03:56 Hgb 9.0 g/dL (11.5-15.4) L 10/05/16 03:56 Hct 30.2 % (35.3-44.9) L 10/05/16 03:56 MCH 27.8 pg (28.0-33.3) L 10/05/16 03:56 MCHC 29.8 g/dL (31.6-35.5) L 10/05/16 03:56 RDW 19.0 % (11.5-14.5) H 10/05/16 03:56 Neutrophils # 12.5 K/mcL (1.6-8.9) H 10/05/16 03:56 Monocytes # 1.7 K/mcL (0.0-1.3) H 10/05/16 03:56 PT 17.3 Seconds (9.4-12.1) H 10/04/16 13:23 ABG pH 7.23 pH Units (7.32-7.45) L 10/05/16 03:56 ABG pCO2 55 mmHg (35-45) H 10/05/16 03:56 ABG pO2 70 mmHg (85-104) L 10/05/16 03:56 ABG O2 Saturation 90 % (95-98) L 10/05/16 03:56 ABG Base Excess -4.7 mEq/L (-2.0 to 3.0) L 10/05/16 03:56 BUN 32 mg/dL (7-20) H 10/05/16 03:56 Creatinine 1.58 mg/dL (0.57-1.11) H 10/05/16 03:56 Est GFR ( Amer) 40 (> 60) L 10/05/16 03:56 Est GFR (Non-Af Amer) 33 (> 60) L 10/05/16 03:56 Glucose 116 mg/dL (70-99) H 10/05/16 03:56 POC Glucose 122 (58-89) H 10/05/16 04:48 Calculated Osmolality 302 (280-300) H 10/05/16 03:56 Uric Acid 10.1 mg/dL (2.6-6.0) H 09/30/16 04:37 Magnesium 1.1 mg/dL (1.6-2.6) L 10/02/16 16:30 Troponin I 0.06 ng/mL (0-0.03) H* 09/28/16 01:00 Albumin 3.3 g/dL (3.5-5.0) L 10/03/16 06:25 Albumin (PEP) 3.57 g/dL (3.75-5.01) L 09/30/16 04:37 Albumin/Globulin Ratio 1.0 (1.1-2.2) L 10/03/16 06:25 Urine Clarity Turbid (Clear) A 09/28/16 18:30 Ur Specific [place] > 1.030 (1.010-1.025) H 09/28/16 18:30 Urine Protein >=1000 mg/dL (Neg-Trace) H 09/28/16 18:30 Urine Glucose (UA) 100 mg/dL (Normal) H 09/28/16 18:30 Urine Ketones Trace mg/dL (Negative) H 09/28/16 18:30 Urine Bilirubin Small (Negative) H 09/28/16 18:30 Ur Leukocyte Esterase Moderate (Negative) H 09/28/16 18:30 Urine Microscopic WBC TNTC per hpf (0-3) H 09/28/16 18:30 Ur Squamous Epith Cells Many per lpf (None-Few) H 09/28/16 18:30 Amorphous Sediment Moderate (Few) H 09/28/16 18:30 Urine Bacteria Moderate per hpf (None-Few) H 09/28/16 18:30 Urine Yeast Few per hpf (None Seen) H 09/28/16 18:30 Ur Culture Indicated? YES (NO) A 09/28/16 18:30 Urine Total Protein 26 mg/dL (1-14) H 09/30/16 11:25 Stool Occult Blood Positive (Negative) A 09/27/16 13:48 Digoxin 2.4 ng/mL (0.8-2.0) H 09/28/16 06:46 - Clinical Findings Intake & Output: Intake & Output 10/04/16 10/05/16 10/05/16 23:59 07:59 15:59 Intake Total 340 / 340 280 / 280 100 / 100 Output Total 100 / 100 150 / 150 Balance 240 / 240 130 / 130 100 / 100 Weight 106.277 kg 107.048 kg - VTE Documentation of Mechanical Device: Intermittent pneumatic compression device Consult Discharge Plan - Plan Referrals: Ward Mcmanus MD [Primary Care Provider] - 10/08/16 2:00 pm () Eleni Edge CNP [Partnered Physician] - 10/12/16 8:45 am (in [place] office )
[2016-10-05] MEDS: Ertapenem 1,000 MG in 0.9 % Sodium Chloride Mini Bag 100 ML IVPB SCH (13:30)
[2016-10-05] MEDS: Ringers Solution, Lactated 1,000 ML IVC SCH (16:08)
[2016-10-05 18:40] LABS: ABG Base Excess -2.1 mEq/L (-2.0 to 3.0); ABG HCO3 24.2 mEQ/L (21-27); ABG Oxygen Saturation 92 % (95-98); ABG PCO2 48 mmHg (35-45); ABG PH 7.31 pH Units (7.32-7.45); ABG PO2 71 mmHg (85-104); ABG TCO2 25.7 mEq/L (20-26); Blood Gas FiO2 30 %
[2016-10-05] MEDS: Dexmedetomidine HCl 400 MCG/100 ML MLS IVC SCH (20:47)
[2016-10-05] MEDS: Melatonin 3 MG TABLET PO SCH (20:52)
[2016-10-06] MEDS: Ipratropium/Albuterol Neb 3 ML IH SCH ×5 (00:32→20:33)
[2016-10-06] MEDS: Ringers Solution, Lactated 1,000 ML IVC SCH ×2 (04:25→17:37)
[2016-10-06] MEDS: Lacri-Lube 3.5 GM TUBE BOTH EYES SCH ×5 (04:27→19:50)
[2016-10-06] MEDS: FentaNYL (PF) 1,000 MCG in 0.9 % Sodium Chloride 80 ML IVC SCH ×2 (06:05→16:42)
[2016-10-06] MEDS: *HR* Enoxaparin 40 MG/0.4 ML SYRINGE SQ SCH (06:07)
[2016-10-06] MEDS: Aspirin Enteric Coated 81 MG Tablet PO SCH (07:41)
[2016-10-06] MEDS: Furosemide 20 MG/2 ML VIAL IVP SCH (07:41)
[2016-10-06] MEDS: Pantoprazole 40 MG VIAL IVP SCH (07:41)
[2016-10-06] MEDS: MethylPREDNISolone 40 MG/ML VIAL IVP SCH (07:41)
[2016-10-06] MEDS: Docusate Oral Soln 100 MG/10 ML UDC GTUBE SCH ×2 (07:41→19:55)
[2016-10-06] MEDS: hydrALAZINE 25 MG TABLET PO SCH ×2 (07:41→14:55)
[2016-10-06] MEDS: Chlorhexidine Rinse 15 ML MOUTHWASH MM SCH ×2 (07:41→19:53)
[2016-10-06] MEDS: Cholecalciferol (D-3) 1,000 UNIT TABLET PO SCH (07:42)
[2016-10-06] MEDS: Nystatin SUSP 5 ML UD.LIQ PO SCH ×4 (07:42→19:55)
[2016-10-06 08:18] LABS: Basophils % 0.2 %; Eosinophils % 0.2 %; Hematocrit 28.7 % (35.3-44.9); Hemoglobin 8.5 g/dL (11.5-15.4); Immature Granulocytes % 1.8 % (0-4); Lymphocytes # 1.8 K/mcL (0.6-4.6); Lymphocytes % 17.9 %; Mean Corpuscular HGB Conc 29.6 g/dL (31.6-35.5); Mean Corpuscular Hemoglobin 27.3 pg (28.0-33.3); Mean Corpuscular Volume 92.3 fL (83.0-100.0); Mean Platelet Volume 9.8 fL (9.4-12.4); Monocytes # 1.2 K/mcL (0.0-1.3); Neutrophils # 6.9 K/mcL (1.6-8.9); Nucleated Red Blood Cells 0.2 /100 WBC (0); Platelet Count 182 K/mcL (140-400); Red Blood Count 3.11 M/mcL (3.82-4.97); Segmented Neutrophils % 67.9 %
[2016-10-06 08:22] LABS: INR 1.5; Prothrombin Time 16.8 Seconds (9.4-12.1)
[2016-10-06 08:28] LABS: Albumin 3.5 g/dL (3.5-5.0); Bilirubin,Total 0.3 mg/dL (0.2-1.2); Calcium 9.2 mg/dL (8.6-10.8); Globulin 3.6 g/dL (2.4-3.5); Potassium 3.9 mEq/L (3.5-4.5); Total Protein 7.1 g/dL (6.0-8.3)
--- NOTE | 2016-10-06 09:57 | Pulmonology Progress Note ---
Date of Encounter: 10/06/16 Time of Encounter: 09:56 Assessment and Plan (1) Toxic metabolic encephalopathy Current Visit: Yes Status: Acute Neuropsych: Remains encephalopathic which is likely multifactorial in nature including underlying anxiety disorder PTSD coupled with medication effect and sedation for mechanical ventilation process and sepsis. Continue SSRI check QTC which was within normal limits adding Seroquel 2 regimen 25 mg twice a day to help with anxiolysis as we attempt to wean sedation to liberated from the ventilator Pulm: Intubated for altered mental status with concern for impending respiratory failure. Once patient is [place] off sedation we will attempt spontaneous breathing trial not a candidate day she continues to have acceptable oxygenation and ventilation on minimal vent support Cards: Long-standing atrial flutter currently rate controlled on medication cardiology is following additionally she has history of mural thrombus which on last echo was normal longer present. HFpEF but not currently decompensated. FEN-GI: GI prophylaxis given. Renal: FRAN improving with acceptable UOP. Cont to monitor elecrolytes BID. Renally dose all meds ID: sepsis with ESBL UTI cont ertapenem wbc has normalized Heme/Onc: DVT prophylaxis given. Anemia is stable. Platelets stable Endo: Glucose monitored Integ/MSK: Skin care per ICU protocol to prevent ulcers CODE: full code (2) Sepsis Current Visit: Yes Status: Acute Qualifiers: Sepsis type: sepsis due to unspecified organism Qualified Code(s): A41.9 - Sepsis, unspecified organism (3) ARF (acute renal failure) Current Visit: Yes Status: Acute Qualifiers: Acute renal failure type: unspecified Qualified Code(s): N17.9 - Acute kidney failure, unspecified (4) Acute blood loss anemia Current Visit: Yes Status: Acute (5) Acute respiratory failure with hypoxia Current Visit: Yes Status: Acute (6) Anemia Current Visit: Yes Status: Acute Qualifiers: Anemia type: unspecified type Qualified Code(s): D64.9 - Anemia, unspecified (7) UTI (urinary tract infection) Current Visit: Yes Status: Acute Qualifiers: Urinary tract infection type: acute cystitis Hematuria presence: without hematuria Qualified Code(s): N30.00 - Acute cystitis without hematuria (8) Atrial flutter Current Visit: Yes Status: Chronic Qualifiers: Atrial flutter type: typical Qualified Code(s): I48.3 - Typical atrial flutter (9) Thrombus of left atrial appendage Current Visit: Yes Status: Chronic (10) DVT prophylaxis Current Visit: No Status: Acute (11) Anticoagulated on Coumadin Current Visit: No Status: Chronic (12) CAD (coronary artery disease) Current Visit: No Status: Chronic Qualifiers: Coronary Disease-Associated Artery/Lesion type: bypass graft [place] vs. transplanted heart: [place] heart Associated angina: without angina Qualified Code(s): I25.810 - Atherosclerosis of coronary artery bypass graft(s) without angina pectoris (13) Chronic kidney disease Current Visit: No Status: Chronic Qualifiers: Chronic kidney disease stage: stage 3 (moderate) Qualified Code(s): N18.3 - Chronic kidney disease, stage 3 (moderate) (14) Morbid obesity Current Visit: No Status: Chronic Qualifiers: Obesity type: unspecified obesity type Qualified Code(s): E66.01 - Morbid ( severe) obesity due to excess calories Subjective Principal diagnosis: ARF, acute blood loss anemia Interval history: Patient remains delirious and agitated unable to wean sedation continues on propofol and fentanyl attempt to use Precedex led bradycardia. Otherwise her been no changes in her clinical course Objective PUL Vital signs: Last Vital Signs Temp 98.9 F 10/06/16 08:26 Pulse 65 10/06/16 09:00 Resp 16 10/06/16 09:36 BP 126/63 10/06/16 09:36 Pulse Ox 92 10/06/16 09:36 General appearance: other (Sedated on vent with lifting sedation she is able to move all extremities but she is unable to follow commands) Neck: supple Auscultation: bilateral: diminished breath sounds Cardiovascular: irregular rhythm Gastrointestinal: soft, non-tender Integumentary: normal Musculoskeletal: no deformities pupils equal and round Ventilator Settings Ventilator Settings: Ventilator Settings, Last 8 Hours Ventilator Mode A/C Ventilator Mode A/C Ventilator Mode A/C Ventilator Mode A/C Ventilator Mode A/C Ventilator Mode A/C Ventilator Mode A/C Ventilator Mode A/C Ventilator Mode A/C Ventilator Mode A/C Ventilator Mode A/C Ventilator Tidal Volume 420 Setting Ventilator Tidal Volume 420 Setting Ventilator Tidal Volume 420 Setting Ventilator Tidal Volume 420 Setting Ventilator Tidal Volume 420 Setting Ventilator Tidal Volume 420 Setting Ventilator Tidal Volume 420 Setting Ventilator Tidal Volume 420 Setting Ventilator Tidal Volume 420 Setting Ventilator Tidal Volume 420 Setting Ventilator Tidal Volume 420 Setting Ventilator Respiratory Rate 16 Setting Ventilator Respiratory Rate 16 Setting Ventilator Respiratory Rate 16 Setting Ventilator Respiratory Rate 16 Setting Ventilator Respiratory Rate 16 Setting Ventilator Respiratory Rate 16 Setting Ventilator Respiratory Rate 16 Setting Ventilator Respiratory Rate 16 Setting Ventilator Respiratory Rate 16 Setting Ventilator Respiratory Rate 16 Setting Ventilator Respiratory Rate 16 Setting Actual Respiratory Rate 16 Actual Respiratory Rate 17 Actual Respiratory Rate 19 Actual Respiratory Rate 16 Actual Respiratory Rate 16 Actual Respiratory Rate 16 Actual Respiratory Rate 16 Actual Respiratory Rate 16 Actual Respiratory Rate 16 Actual Respiratory Rate 16 Actual Respiratory Rate 16 Positive End Expiratory 5 Pressure Positive End Expiratory 5 Pressure Positive End Expiratory 5 Pressure Positive End Expiratory 5 Pressure Positive End Expiratory 5 Pressure Positive End Expiratory 5 Pressure Positive End Expiratory 5 Pressure Positive End Expiratory 5 Pressure Positive End Expiratory 5 Pressure Positive End Expiratory 5 Pressure Positive End Expiratory 5 Pressure Peak Inspiratory Airway 28 Pressure Peak Inspiratory Airway 31 Pressure Peak Inspiratory Airway 32 Pressure Peak Inspiratory Airway 31 Pressure Peak Inspiratory Airway 30 Pressure Peak Inspiratory Airway 42 Pressure Peak Inspiratory Airway 31 Pressure Peak Inspiratory Airway 26 Pressure Peak Inspiratory Airway 31 Pressure Peak Inspiratory Airway 46 Pressure Peak Inspiratory Airway 23 Pressure Results - Laboratory Findings CBC and BMP: 10/06/16 08:00 10/06/16 08:00 ABG ABG pH 7.31 pH Units (7.32-7.45) L 10/05/16 18:30 ABG pCO2 48 mmHg (35-45) H 10/05/16 18:30 ABG pO2 71 mmHg (85-104) L 10/05/16 18:30 ABG O2 Saturation 92 % (95-98) L 10/05/16 18:30 PT/INR, D-dimer PT 16.8 Seconds (9.4-12.1) H 10/06/16 08:00 Abnormal lab findings: Abnormal lab results RBC 3.11 M/mcL (3.82-4.97) L 10/06/16 08:00 Hgb 8.5 g/dL (11.5-15.4) L 10/06/16 08:00 Hct 28.7 % (35.3-44.9) L 10/06/16 08:00 MCH 27.3 pg (28.0-33.3) L 10/06/16 08:00 MCHC 29.6 g/dL (31.6-35.5) L 10/06/16 08:00 RDW 19.0 % (11.5-14.5) H 10/06/16 08:00 Nucleated RBCs/100 WBC 0.2 /100 WBC (0) H 10/06/16 08:00 PT 16.8 Seconds (9.4-12.1) H 10/06/16 08:00 ABG pH 7.31 pH Units (7.32-7.45) L 10/05/16 18:30 ABG pCO2 48 mmHg (35-45) H 10/05/16 18:30 ABG pO2 71 mmHg (85-104) L 10/05/16 18:30 ABG O2 Saturation 92 % (95-98) L 10/05/16 18:30 ABG Base Excess -2.1 mEq/L (-2.0 to 3.0) L 10/05/16 18:30 Chloride 111 mEq/L (98-109) H 10/06/16 08:00 BUN 41 mg/dL (7-20) H 10/06/16 08:00 Creatinine 1.38 mg/dL (0.57-1.11) H 10/06/16 08:00 Est GFR ( Amer) 46 (> 60) L 10/06/16 08:00 Est GFR (Non-Af Amer) 38 (> 60) L 10/06/16 08:00 BUN/Creatinine Ratio 30 (6-26) H 10/06/16 08:00 Glucose 115 mg/dL (70-99) H 10/06/16 08:00 POC Glucose 116 (58-89) H 10/06/16 04:45 Calculated Osmolality 307 (280-300) H 10/06/16 08:00 Uric Acid 10.1 mg/dL (2.6-6.0) H 09/30/16 04:37 Magnesium 1.1 mg/dL (1.6-2.6) L 10/02/16 16:30 Troponin I 0.06 ng/mL (0-0.03) H* 09/28/16 01:00 Albumin (PEP) 3.57 g/dL (3.75-5.01) L 09/30/16 04:37 Globulin 3.6 g/dL (2.4-3.5) H 10/06/16 08:00 Albumin/Globulin Ratio 1.0 (1.1-2.2) L 10/06/16 08:00 Urine Clarity Turbid (Clear) A 09/28/16 18:30 Ur Specific [place] > 1.030 (1.010-1.025) H 09/28/16 18:30 Urine Protein >=1000 mg/dL (Neg-Trace) H 09/28/16 18:30 Urine Glucose (UA) 100 mg/dL (Normal) H 09/28/16 18:30 Urine Ketones Trace mg/dL (Negative) H 09/28/16 18:30 Urine Bilirubin Small (Negative) H 09/28/16 18:30 Ur Leukocyte Esterase Moderate (Negative) H 09/28/16 18:30 Urine Microscopic WBC TNTC per hpf (0-3) H 09/28/16 18:30 Ur Squamous Epith Cells Many per lpf (None-Few) H 09/28/16 18:30 Amorphous Sediment Moderate (Few) H 09/28/16 18:30 Urine Bacteria Moderate per hpf (None-Few) H 09/28/16 18:30 Urine Yeast Few per hpf (None Seen) H 09/28/16 18:30 Ur Culture Indicated? YES (NO) A 09/28/16 18:30 Urine Total Protein 26 mg/dL (1-14) H 09/30/16 11:25 Stool Occult Blood Positive (Negative) A 09/27/16 13:48 Digoxin 2.4 ng/mL (0.8-2.0) H 09/28/16 06:46 - Clinical Findings Intake & Output: Intake & Output 10/05/16 10/06/16 10/06/16 23:59 07:59 15:59 Intake Total 215 / 215 1320 / 1320 75 / 75 Output Total 200 / 200 300 / 300 150 / 150 Balance 1020 / 1020 -75 / -75 Weight 105.868 kg - VTE Documentation of Mechanical Device: Intermittent pneumatic compression device Consult Discharge Plan - Plan Referrals: Ward Mcmanus MD [Primary Care Provider] - 10/08/16 2:00 pm () Eleni Edge CNP [Partnered Physician] - 10/12/16 8:45 am (in [place] office )
[2016-10-06] MEDS: Insulin LISPRO 300 UNITS/3 ML VIAL SQ SCH ×4 (10:00→20:16)
[2016-10-06] MEDS: Ertapenem 1,000 MG in 0.9 % Sodium Chloride Mini Bag 100 ML IVPB SCH (13:17)
[2016-10-06] MEDS: Dexmedetomidine HCl 400 MCG/100 ML MLS IVC SCH (19:44)
[2016-10-06] MEDS: Melatonin 3 MG TABLET PO SCH (19:56)
[2016-10-07] MEDS: hydrALAZINE 25 MG TABLET PO SCH ×4 (00:06→22:57)
[2016-10-07] MEDS: Lacri-Lube 3.5 GM TUBE BOTH EYES SCH ×7 (00:07→22:57)
[2016-10-07] MEDS: FentaNYL (PF) 1,000 MCG in 0.9 % Sodium Chloride 80 ML IVC SCH (00:08)
[2016-10-07] MEDS: Ipratropium/Albuterol Neb 3 ML IH SCH ×4 (04:08→20:02)
[2016-10-07] MEDS: Dexmedetomidine HCl 400 MCG/100 ML MLS IVC SCH ×3 (04:27→23:40)
[2016-10-07 06:28] LABS: Eosinophils % 0.3 %; Hematocrit 26.7 % (35.3-44.9); Immature Granulocytes % 0.9 % (0-4); Lymphocytes % 27.3 %; Mean Corpuscular Hemoglobin 27.7 pg (28.0-33.3); Mean Corpuscular Volume 92.4 fL (83.0-100.0); Mean Platelet Volume 10.6 fL (9.4-12.4); Monocytes % 10.5 %; Platelet Count 138 K/mcL (140-400); Red Blood Count 2.89 M/mcL (3.82-4.97); Red Cell Distribution Width 18.8 % (11.5-14.5); Segmented Neutrophils % 60.8 %
[2016-10-07] MEDS: Ringers Solution, Lactated 1,000 ML IVC SCH (06:28)
[2016-10-07 06:29] LABS: Basophils % 0.2 %; Lymphocytes # 1.6 K/mcL (0.6-4.6); Monocytes # 0.6 K/mcL (0.0-1.3); Neutrophils # 3.5 K/mcL (1.6-8.9)
[2016-10-07] MEDS: *HR* Enoxaparin 40 MG/0.4 ML SYRINGE SQ SCH (06:29)
[2016-10-07] MEDS: FentaNYL (PF) 3,000 MCG in 0.9 % Sodium Chloride 240 ML IVC SCH ×2 (06:33→07:49)
[2016-10-07 07:02] LABS: Alanine Aminotransferase 11 Units/L (0-55); Albumin 3.1 g/dL (3.5-5.0); Alkaline Phosphatase 65 Units/L (38-126); Aspartate Amino Transferase 17 Units/L (5-34); BUN/Creatinine Ratio 39 (6-26); Bilirubin,Total 0.2 mg/dL (0.2-1.2); Blood Urea Nitrogen 42 mg/dL (7-20); Carbon Dioxide 26 mEq/L (19-29); Chloride 113 mEq/L (98-109); Globulin 3.2 g/dL (2.4-3.5); Glucose 114 mg/dL (70-99); Magnesium 1.6 mg/dL (1.6-2.6); Osmolality,Calculated 311 (280-300); Potassium 4.1 mEq/L (3.5-4.5); Sodium 145 mEq/L (136-145); Total Protein 6.3 g/dL (6.0-8.3); eGFR For African Americans > 60 (> 60); eGFR For Non-African Americans 50 (> 60)
[2016-10-07] MEDS: Insulin LISPRO 300 UNITS/3 ML VIAL SQ SCH ×4 (07:50→20:21)
[2016-10-07] MEDS: Ferrous Sulfate Oral Soln 300 MG/5 ML UDC PO SCH ×2 (08:08→15:53)
[2016-10-07] MEDS: Aspirin 81 MG TAB.CHEW PO SCH (08:11)
[2016-10-07] MEDS: Docusate Oral Soln 100 MG/10 ML UDC GTUBE SCH ×2 (08:46→20:11)
[2016-10-07] MEDS: MethylPREDNISolone 40 MG/ML VIAL IVP SCH (08:46)
[2016-10-07] MEDS: Furosemide 20 MG/2 ML VIAL IVP SCH (08:46)
[2016-10-07] MEDS: Nystatin SUSP 5 ML UD.LIQ PO SCH ×4 (08:46→20:11)
[2016-10-07] MEDS: Pantoprazole 40 MG VIAL IVP SCH (08:46)
[2016-10-07] MEDS: Cholecalciferol (D-3) 1,000 UNIT TABLET PO SCH (08:47)
[2016-10-07] MEDS: Chlorhexidine Rinse 15 ML MOUTHWASH MM SCH ×2 (08:47→20:11)
[2016-10-07] MEDS: Bisacodyl 10 MG RECTAL SUPPOSITORY RC SCH (13:06)
[2016-10-07] MEDS: Ertapenem 1,000 MG in 0.9 % Sodium Chloride Mini Bag 100 ML IVPB SCH (13:11)
--- NOTE | 2016-10-07 13:38 | Pulmonology Progress Note ---
Date of Encounter: 10/07/16 Time of Encounter: 13:38 Assessment and Plan (1) Toxic metabolic encephalopathy Current Visit: Yes Status: Acute Neuropsych: Remains encephalopathic and delirious which is likely multifactorial in nature including underlying anxiety disorder PTSD coupled with medication effect and sedation for mechanical ventilation process and sepsis. Increased dose of Seroquel attempting to wean down propofol and narcotic this is a challenging case Pulm: Intubated for altered mental status with concern for impending respiratory failure. SPT cannot be attempted today because of mental status Cards: Long-standing atrial flutter currently rate controlled on medication cardiology is following additionally she has history of mural thrombus which on last echo was normal longer present. HFpEF but not currently decompensated. FEN-GI: GI prophylaxis given. Renal: FRAN has improved continues to have acceptable UOP. Cont to monitor elecrolytes BID. Renally dose all meds ID: sepsis with ESBL UTI cont ertapenem wbc has normalized Heme/Onc: DVT prophylaxis given. Anemia is stable. She had increase in platelet count over the last few days which down trended now she is at where she was approximately 4-5 days ago. Continue to monitor daily Endo: Glucose monitored sinus scale insulin given as needed Integ/MSK: Skin care per ICU protocol to prevent ulcers CODE: full code I updated her daughter and son-in-law at bedside today and went over the fact that she remains delirious and it has been difficult to treat underlying agitation but we continue to make adjustments in her medication regimen also continue to focus on sleep-wake cycle as possible (2) Sepsis Current Visit: Yes Status: Acute Qualifiers: Sepsis type: sepsis due to unspecified organism Qualified Code(s): A41.9 - Sepsis, unspecified organism (3) ARF (acute renal failure) Current Visit: Yes Status: Acute Qualifiers: Acute renal failure type: unspecified Qualified Code(s): N17.9 - Acute kidney failure, unspecified (4) Acute blood loss anemia Current Visit: Yes Status: Acute (5) Acute respiratory failure with hypoxia Current Visit: Yes Status: Acute (6) Anemia Current Visit: Yes Status: Acute Qualifiers: Anemia type: unspecified type Qualified Code(s): D64.9 - Anemia, unspecified (7) UTI (urinary tract infection) Current Visit: Yes Status: Acute Qualifiers: Urinary tract infection type: acute cystitis Hematuria presence: without hematuria Qualified Code(s): N30.00 - Acute cystitis without hematuria (8) Atrial flutter Current Visit: Yes Status: Chronic Qualifiers: Atrial flutter type: typical Qualified Code(s): I48.3 - Typical atrial flutter (9) Thrombus of left atrial appendage Current Visit: Yes Status: Chronic (10) DVT prophylaxis Current Visit: No Status: Acute (11) Anticoagulated on Coumadin Current Visit: No Status: Chronic (12) CAD (coronary artery disease) Current Visit: No Status: Chronic Qualifiers: Coronary Disease-Associated Artery/Lesion type: bypass graft [place] vs. transplanted heart: [place] heart Associated angina: without angina Qualified Code(s): I25.810 - Atherosclerosis of coronary artery bypass graft(s) without angina pectoris (13) Chronic kidney disease Current Visit: No Status: Chronic Qualifiers: Chronic kidney disease stage: stage 3 (moderate) Qualified Code(s): N18.3 - Chronic kidney disease, stage 3 (moderate) (14) Morbid obesity Current Visit: No Status: Chronic Qualifiers: Obesity type: unspecified obesity type Qualified Code(s): E66.01 - Morbid ( severe) obesity due to excess calories Subjective Principal diagnosis: ARF, acute blood loss anemia Interval history: Patient remains delirious and agitated unable to wean sedation continues on propofol and fentanyl attempt to use Precedex led bradycardia. Medications continue to be adjusted including addition of atypical antipsychotic for agitation control Objective PUL Vital signs: Last Vital Signs Temp 99.6 F 10/07/16 13:02 Pulse 103 10/07/16 13:00 Resp 17 10/07/16 13:00 BP 125/70 10/07/16 13:00 Pulse Ox 98 10/07/16 13:00 General appearance: other (Sedated on the vent does not follow commands) Effort: normal Auscultation: bilateral: rales ([place] lung bases) Cardiovascular: irregular rhythm Gastrointestinal: normoactive bowel sounds, non-tender Integumentary: normal Extremities: edema (Trace bilateral pitting edema) Musculoskeletal: no deformities pupils equal and round, other (Moves all extremities spontaneously without evidence of focal weakness) Ventilator Settings Ventilator Settings: Ventilator Settings, Last 8 Hours Ventilator Mode A/C Ventilator Mode A/C Ventilator Mode A/C Ventilator Mode A/C Ventilator Tidal Volume 420 Setting Ventilator Tidal Volume 420 Setting Ventilator Tidal Volume 420 Setting Ventilator Tidal Volume 420 Setting Ventilator Respiratory Rate 16 Setting Ventilator Respiratory Rate 16 Setting Ventilator Respiratory Rate 16 Setting Ventilator Respiratory Rate 16 Setting Actual Respiratory Rate 17 Actual Respiratory Rate 18 Actual Respiratory Rate 18 Actual Respiratory Rate 16 Positive End Expiratory 5 Pressure Positive End Expiratory 5 Pressure Positive End Expiratory 5 Pressure Positive End Expiratory 5 Pressure Peak Inspiratory Airway 33 Pressure Peak Inspiratory Airway 34 Pressure Peak Inspiratory Airway 23 Pressure Peak Inspiratory Airway 22 Pressure Results - Laboratory Findings CBC and BMP: 10/07/16 05:40 10/07/16 05:40 ABG ABG pH 7.31 pH Units (7.32-7.45) L 10/05/16 18:30 ABG pCO2 48 mmHg (35-45) H 10/05/16 18:30 ABG pO2 71 mmHg (85-104) L 10/05/16 18:30 ABG O2 Saturation 92 % (95-98) L 10/05/16 18:30 PT/INR, D-dimer PT 16.8 Seconds (9.4-12.1) H 10/06/16 08:00 Abnormal lab findings: Abnormal lab results RBC 2.89 M/mcL (3.82-4.97) L 10/07/16 05:40 Hgb 8.0 g/dL (11.5-15.4) L 10/07/16 05:40 Hct 26.7 % (35.3-44.9) L 10/07/16 05:40 MCH 27.7 pg (28.0-33.3) L 10/07/16 05:40 MCHC 30.0 g/dL (31.6-35.5) L 10/07/16 05:40 RDW 18.8 % (11.5-14.5) H 10/07/16 05:40 Plt Count 138 K/mcL (140-400) L 10/07/16 05:40 Nucleated RBCs/100 WBC 0.2 /100 WBC (0) H 10/06/16 08:00 PT 16.8 Seconds (9.4-12.1) H 10/06/16 08:00 ABG pH 7.31 pH Units (7.32-7.45) L 10/05/16 18:30 ABG pCO2 48 mmHg (35-45) H 10/05/16 18:30 ABG pO2 71 mmHg (85-104) L 10/05/16 18:30 ABG O2 Saturation 92 % (95-98) L 10/05/16 18:30 ABG Base Excess -2.1 mEq/L (-2.0 to 3.0) L 10/05/16 18:30 Chloride 113 mEq/L (98-109) H 10/07/16 05:40 BUN 42 mg/dL (7-20) H 10/07/16 05:40 Est GFR (Non-Af Amer) 50 (> 60) L 10/07/16 05:40 BUN/Creatinine Ratio 39 (6-26) H 10/07/16 05:40 Glucose 114 mg/dL (70-99) H 10/07/16 05:40 POC Glucose 136 (58-89) H 10/07/16 07:19 Calculated Osmolality 311 (280-300) H 10/07/16 05:40 Uric Acid 10.1 mg/dL (2.6-6.0) H 09/30/16 04:37 Troponin I 0.06 ng/mL (0-0.03) H* 09/28/16 01:00 Albumin 3.1 g/dL (3.5-5.0) L 10/07/16 05:40 Albumin (PEP) 3.57 g/dL (3.75-5.01) L 09/30/16 04:37 Albumin/Globulin Ratio 1.0 (1.1-2.2) L 10/07/16 05:40 Urine Clarity Turbid (Clear) A 09/28/16 18:30 Ur Specific [place] > 1.030 (1.010-1.025) H 09/28/16 18:30 Urine Protein >=1000 mg/dL (Neg-Trace) H 09/28/16 18:30 Urine Glucose (UA) 100 mg/dL (Normal) H 09/28/16 18:30 Urine Ketones Trace mg/dL (Negative) H 09/28/16 18:30 Urine Bilirubin Small (Negative) H 09/28/16 18:30 Ur Leukocyte Esterase Moderate (Negative) H 09/28/16 18:30 Urine Microscopic WBC TNTC per hpf (0-3) H 09/28/16 18:30 Ur Squamous Epith Cells Many per lpf (None-Few) H 09/28/16 18:30 Amorphous Sediment Moderate (Few) H 09/28/16 18:30 Urine Bacteria Moderate per hpf (None-Few) H 09/28/16 18:30 Urine Yeast Few per hpf (None Seen) H 09/28/16 18:30 Ur Culture Indicated? YES (NO) A 09/28/16 18:30 Urine Total Protein 26 mg/dL (1-14) H 09/30/16 11:25 Stool Occult Blood Positive (Negative) A 09/27/16 13:48 Digoxin 2.4 ng/mL (0.8-2.0) H 09/28/16 06:46 - Clinical Findings Intake & Output: Intake & Output 10/06/16 10/07/16 10/07/16 23:59 07:59 15:59 Intake Total 1243 / 1243 1450 / 1450 100 / 100 Output Total 275 / 275 325 / 325 1999 / 1999 Balance 968 / 968 1125 / 1125 -1900 / -1900 Weight 108 kg - VTE Documentation of Mechanical Device: Intermittent pneumatic compression device Consult Discharge Plan - Plan Referrals: Ward Mcmanus MD [Primary Care Provider] - 10/08/16 2:00 pm () Eleni Edge CNP [Partnered Physician] - 10/12/16 8:45 am (in [place] office )
[2016-10-07] MEDS: Melatonin 3 MG TABLET PO SCH (20:23)
[2016-10-07] MEDS: Acetaminophen 325 MG TABLET PO PRN (20:31)
[2016-10-08] MEDS: FentaNYL (PF) 3,000 MCG in 0.9 % Sodium Chloride 240 ML IVC SCH (01:30)
[2016-10-08] MEDS: Lacri-Lube 3.5 GM TUBE BOTH EYES SCH ×6 (01:53→23:22)
[2016-10-08 03:00] LABS: Hemoglobin 7.9 g/dL (11.5-15.4); Immature Platelets 3.9 % (1.1-6.1); Mean Corpuscular HGB Conc 29.3 g/dL (31.6-35.5); Mean Corpuscular Hemoglobin 27.1 pg (28.0-33.3); Mean Corpuscular Volume 92.5 fL (83.0-100.0); Mean Platelet Volume 10.7 fL (9.4-12.4); Nucleated Red Blood Cells 0.2 /100 WBC (0); Platelet Count 124 K/mcL (140-400); Red Blood Count 2.92 M/mcL (3.82-4.97); Red Cell Distribution Width 18.6 % (11.5-14.5)
[2016-10-08 03:13] LABS: Calcium 8.8 mg/dL (8.6-10.8); Potassium 3.5 mEq/L (3.5-4.5)
[2016-10-08 03:20] LABS: Anisocytosis 1+ (Not Present); Eosinophils # 0.3 K/mcL (0.0-0.6); Lymphocytes # 2.8 K/mcL (0.6-4.6); Monocytes # 0.8 K/mcL (0.0-1.3)
[2016-10-08 03:21] LABS: Basophilic Stippling 1+ (Not Present); Macrocytosis Present (Not Present); Microcytosis Present (Not Present); Platelet Estimate Slight Decrease (Normal); Polychromasia 1+ (Not Present)
[2016-10-08] MEDS: Ipratropium/Albuterol Neb 3 ML IH SCH (03:51)
[2016-10-08] MEDS: *HR* Enoxaparin 40 MG/0.4 ML SYRINGE SQ SCH (05:00)
--- NOTE | 2016-10-08 08:12 | Pulmonology Progress Note ---
Date of Encounter: 10/08/16 Time of Encounter: 08:12 Assessment and Plan (1) Toxic metabolic encephalopathy Current Visit: Yes Status: Acute Neuropsych: Remains encephalopathic and delirious which is likely multifactorial in nature including underlying anxiety disorder PTSD coupled with medication effect and sedation for mechanical ventilation process and sepsis. Increased dose of Seroquel. Encouragingly amount of sedation needed has been able to be lessened over the last 12 hours we will attempt to wean completely. Pulm: Intubated for altered mental status with concern for impending respiratory failure. Chest x-ray today notable for pulmonary edema with a right -sided effusion SBT cannot be attempted today because of mental status. There has been no change in ventilatory support requirements continues to have acceptable oxygenation Cards: Long-standing atrial flutter currently rate controlled on medication cardiology is following additionally she has history of mural thrombus which on last echo was normal longer present. HFpEF but not currently decompensated. FEN-GI: GI prophylaxis given. Renal: Slight increase in creatinine and overnight but acceptable UOP. Renally dose all meds. Trial diuresis today as tolerated by renal function ID: sepsis with ESBL UTI cont ertapenem wbc has normalized. New leukocytosis with sputum concerning for gram-positive cocci will empirically cover for concern of MRSA with vancomycin Heme/Onc: DVT prophylaxis given. Anemia is stable. Mild thrombocytopenia which is stable Endo: Glucose monitored sinus scale insulin given as needed Integ/MSK: Skin care per ICU protocol to prevent ulcers CODE: full code (2) Sepsis Current Visit: Yes Status: Acute Qualifiers: Sepsis type: sepsis due to unspecified organism Qualified Code(s): A41.9 - Sepsis, unspecified organism (3) ARF (acute renal failure) Current Visit: Yes Status: Acute Qualifiers: Acute renal failure type: unspecified Qualified Code(s): N17.9 - Acute kidney failure, unspecified (4) Acute blood loss anemia Current Visit: Yes Status: Acute (5) Acute respiratory failure with hypoxia Current Visit: Yes Status: Acute (6) Anemia Current Visit: Yes Status: Acute Qualifiers: Anemia type: unspecified type Qualified Code(s): D64.9 - Anemia, unspecified (7) UTI (urinary tract infection) Current Visit: Yes Status: Acute Qualifiers: Urinary tract infection type: acute cystitis Hematuria presence: without hematuria Qualified Code(s): N30.00 - Acute cystitis without hematuria (8) Atrial flutter Current Visit: Yes Status: Chronic Qualifiers: Atrial flutter type: typical Qualified Code(s): I48.3 - Typical atrial flutter (9) Thrombus of left atrial appendage Current Visit: Yes Status: Chronic (10) DVT prophylaxis Current Visit: No Status: Acute (11) Anticoagulated on Coumadin Current Visit: No Status: Chronic (12) CAD (coronary artery disease) Current Visit: No Status: Chronic Qualifiers: Coronary Disease-Associated Artery/Lesion type: bypass graft [place] vs. transplanted heart: [place] heart Associated angina: without angina Qualified Code(s): I25.810 - Atherosclerosis of coronary artery bypass graft(s) without angina pectoris (13) Chronic kidney disease Current Visit: No Status: Chronic Qualifiers: Chronic kidney disease stage: stage 3 (moderate) Qualified Code(s): N18.3 - Chronic kidney disease, stage 3 (moderate) (14) Morbid obesity Current Visit: No Status: Chronic Qualifiers: Obesity type: unspecified obesity type Qualified Code(s): E66.01 - Morbid ( severe) obesity due to excess calories Subjective Principal diagnosis: ARF, acute blood loss anemia Interval history: Was febrile over the night. She was cultured preliminary sputum concerning for gram-positive cocci. Able to wean down sedation compared to yesterday she is more calm. Remains encephalopathic Objective PUL Vital signs: Last Vital Signs Temp 99.6 F 10/08/16 07:43 Pulse 99 10/08/16 06:00 Resp 23 10/08/16 07:50 BP 116/50 10/08/16 06:08 Pulse Ox 96 10/08/16 07:50 General appearance: no acute distress, other (Sedated on vent) Auscultation: bilateral: diminished breath sounds (Right greater than left) Cardiovascular: regular rate and rhythm Gastrointestinal: normoactive bowel sounds, soft, non-tender Integumentary: normal Extremities: edema Musculoskeletal: no deformities pupils equal and round, other (Noted to move all extremities she is not able to follow commands she is not particularly directable exam is consistent with yesterday's although less agitated) Ventilator Settings Ventilator Settings: Ventilator Settings, Last 8 Hours Ventilator Mode A/C Ventilator Mode A/C Ventilator Mode A/C Ventilator Mode A/C Ventilator Mode A/C Ventilator Mode A/C Ventilator Mode A/C Ventilator Mode A/C Ventilator Mode A/C Ventilator Mode A/C Ventilator Mode A/C Ventilator Tidal Volume 420 Setting Ventilator Tidal Volume 420 Setting Ventilator Tidal Volume 420 Setting Ventilator Tidal Volume 420 Setting Ventilator Tidal Volume 420 Setting Ventilator Tidal Volume 420 Setting Ventilator Tidal Volume 420 Setting Ventilator Tidal Volume 420 Setting Ventilator Tidal Volume 420 Setting Ventilator Tidal Volume 420 Setting Ventilator Tidal Volume 420 Setting Ventilator Respiratory Rate 16 Setting Ventilator Respiratory Rate 16 Setting Ventilator Respiratory Rate 16 Setting Ventilator Respiratory Rate 16 Setting Ventilator Respiratory Rate 16 Setting Ventilator Respiratory Rate 16 Setting Ventilator Respiratory Rate 16 Setting Ventilator Respiratory Rate 16 Setting Ventilator Respiratory Rate 16 Setting Ventilator Respiratory Rate 16 Setting Ventilator Respiratory Rate 16 Setting Actual Respiratory Rate 19 Actual Respiratory Rate 21 Actual Respiratory Rate 20 Actual Respiratory Rate 20 Actual Respiratory Rate 20 Actual Respiratory Rate 21 Actual Respiratory Rate 21 Actual Respiratory Rate 18 Actual Respiratory Rate 21 Actual Respiratory Rate 19 Actual Respiratory Rate 19 Positive End Expiratory 5 Pressure Positive End Expiratory 5 Pressure Positive End Expiratory 5 Pressure Positive End Expiratory 5 Pressure Positive End Expiratory 5 Pressure Positive End Expiratory 5 Pressure Positive End Expiratory 5 Pressure Positive End Expiratory 5 Pressure Positive End Expiratory 5 Pressure Positive End Expiratory 5 Pressure Positive End Expiratory 5 Pressure Peak Inspiratory Airway 29 Pressure Peak Inspiratory Airway 12 Pressure Peak Inspiratory Airway 27 Pressure Peak Inspiratory Airway 29 Pressure Peak Inspiratory Airway 13 Pressure Peak Inspiratory Airway 17 Pressure Peak Inspiratory Airway 10 Pressure Peak Inspiratory Airway 13 Pressure Peak Inspiratory Airway 27 Pressure Peak Inspiratory Airway 12 Pressure Peak Inspiratory Airway 18 Pressure Results - Laboratory Findings CBC and BMP: 10/08/16 02:53 10/08/16 02:53 ABG ABG pH 7.31 pH Units (7.32-7.45) L 10/05/16 18:30 ABG pCO2 48 mmHg (35-45) H 10/05/16 18:30 ABG pO2 71 mmHg (85-104) L 10/05/16 18:30 ABG O2 Saturation 92 % (95-98) L 10/05/16 18:30 PT/INR, D-dimer PT 16.8 Seconds (9.4-12.1) H 10/06/16 08:00 Abnormal lab findings: Abnormal lab results WBC 12.9 K/mcL (4.3-11.1) H D 10/08/16 02:53 RBC 2.92 M/mcL (3.82-4.97) L 10/08/16 02:53 Hgb 7.9 g/dL (11.5-15.4) L 10/08/16 02:53 Hct 27.0 % (35.3-44.9) L 10/08/16 02:53 MCH 27.1 pg (28.0-33.3) L 10/08/16 02:53 MCHC 29.3 g/dL (31.6-35.5) L 10/08/16 02:53 RDW 18.6 % (11.5-14.5) H 10/08/16 02:53 Plt Count 124 K/mcL (140-400) L 10/08/16 02:53 Band Neutrophils % 14.0 % (0-4) H 10/08/16 02:53 Neutrophils # 9.0 K/mcL (1.6-8.9) H 10/08/16 02:53 Nucleated RBCs/100 WBC 0.2 /100 WBC (0) H 10/08/16 02:53 Platelet Estimate Slight Decrease (Normal) L 10/08/16 02:53 Polychromasia 1+ (Not Present) A 10/08/16 02:53 Basophilic Stippling 1+ (Not Present) A 10/08/16 02:53 Anisocytosis 1+ (Not Present) A 10/08/16 02:53 Microcytosis Present (Not Present) A 10/08/16 02:53 Macrocytosis Present (Not Present) A 10/08/16 02:53 PT 16.8 Seconds (9.4-12.1) H 10/06/16 08:00 ABG pH 7.31 pH Units (7.32-7.45) L 10/05/16 18:30 ABG pCO2 48 mmHg (35-45) H 10/05/16 18:30 ABG pO2 71 mmHg (85-104) L 10/05/16 18:30 ABG O2 Saturation 92 % (95-98) L 10/05/16 18:30 ABG Base Excess -2.1 mEq/L (-2.0 to 3.0) L 10/05/16 18:30 Sodium 146 mEq/L (136-145) H 10/08/16 02:53 Chloride 112 mEq/L (98-109) H 10/08/16 02:53 BUN 45 mg/dL (7-20) H 10/08/16 02:53 Creatinine 1.25 mg/dL (0.57-1.11) H 10/08/16 02:53 Est GFR ( Amer) 52 (> 60) L 10/08/16 02:53 Est GFR (Non-Af Amer) 43 (> 60) L 10/08/16 02:53 BUN/Creatinine Ratio 36 (6-26) H 10/08/16 02:53 Glucose 124 mg/dL (70-99) H 10/08/16 02:53 POC Glucose 160 (58-89) H 10/08/16 07:08 Calculated Osmolality 315 (280-300) H 10/08/16 02:53 Uric Acid 10.1 mg/dL (2.6-6.0) H 09/30/16 04:37 Troponin I 0.06 ng/mL (0-0.03) H* 09/28/16 01:00 Albumin 3.1 g/dL (3.5-5.0) L 10/07/16 05:40 Albumin (PEP) 3.57 g/dL (3.75-5.01) L 09/30/16 04:37 Albumin/Globulin Ratio 1.0 (1.1-2.2) L 10/07/16 05:40 Urine Clarity Turbid (Clear) A 09/28/16 18:30 Ur Specific [facility] > 1.030 (1.010-1.025) H 09/28/16 18:30 Urine Protein >=1000 mg/dL (Neg-Trace) H 09/28/16 18:30 Urine Glucose (UA) 100 mg/dL (Normal) H 09/28/16 18:30 Urine Ketones Trace mg/dL (Negative) H 09/28/16 18:30 Urine Bilirubin Small (Negative) H 09/28/16 18:30 Ur Leukocyte Esterase Moderate (Negative) H 09/28/16 18:30 Urine Microscopic WBC TNTC per hpf (0-3) H 09/28/16 18:30 Ur Squamous Epith Cells Many per lpf (None-Few) H 09/28/16 18:30 Amorphous Sediment Moderate (Few) H 09/28/16 18:30 Urine Bacteria Moderate per hpf (None-Few) H 09/28/16 18:30 Urine Yeast Few per hpf (None Seen) H 09/28/16 18:30 Ur Culture Indicated? YES (NO) A 09/28/16 18:30 Urine Total Protein 26 mg/dL (1-14) H 09/30/16 11:25 Stool Occult Blood Positive (Negative) A 09/27/16 13:48 Digoxin 2.4 ng/mL (0.8-2.0) H 09/28/16 06:46 - Microbiology Findings Microbiology Findings: Microbiology, Last 48 Hours 10/08/16 01:20 Sputum Culture - Preliminary Sputum - Clinical Findings Intake & Output: Intake & Output 10/07/16 10/08/16 10/08/16 23:59 07:59 15:59 Intake Total 1189 / 1189 275 / 275 Output Total 400 / 400 300 / 300 Balance 789 / 789 - / 25 Weight 108.4 kg - VTE Documentation of Mechanical Device: Intermittent pneumatic compression device Consult Discharge Plan - Plan Referrals: Ward Mcmanus MD [Primary Care Provider] - 10/08/16 2:00 pm () Eleni Edge CNP [Partnered Physician] - 10/12/16 8:45 am (in [place] office )
[2016-10-08] MEDS: Vancomycin 1,750 MG in D5% in Water 500 ML IVPB SCH (09:09)
[2016-10-08] MEDS: Cholecalciferol (D-3) 1,000 UNIT TABLET PO SCH (09:09)
[2016-10-08] MEDS: Chlorhexidine Rinse 15 ML MOUTHWASH MM SCH ×2 (09:09→19:49)
[2016-10-08] MEDS: Insulin LISPRO 300 UNITS/3 ML VIAL SQ SCH ×4 (09:09→19:54)
[2016-10-08] MEDS: Ferrous Sulfate Oral Soln 300 MG/5 ML UDC PO SCH ×2 (09:10→16:44)
[2016-10-08] MEDS: hydrALAZINE 25 MG TABLET PO SCH ×3 (09:10→23:21)
[2016-10-08] MEDS: Furosemide 20 MG/2 ML VIAL IVP SCH (09:10)
[2016-10-08] MEDS: Pantoprazole 40 MG VIAL IVP SCH (09:10)
[2016-10-08] MEDS: Aspirin 81 MG TAB.CHEW PO SCH (09:10)
[2016-10-08] MEDS: Nystatin SUSP 5 ML UD.LIQ PO SCH ×4 (09:10→19:49)
[2016-10-08] MEDS: Bisacodyl 10 MG RECTAL SUPPOSITORY RC SCH (09:11)
[2016-10-08] MEDS: Docusate Oral Soln 100 MG/10 ML UDC GTUBE SCH ×2 (09:12→19:18)
[2016-10-08 09:24] LABS: Magnesium 1.5 mg/dL (1.6-2.6)
[2016-10-08] MEDS: Ertapenem 1,000 MG in 0.9 % Sodium Chloride Mini Bag 100 ML IVPB SCH (11:32)
[2016-10-08] MEDS: Dexmedetomidine HCl 400 MCG/100 ML MLS IVC SCH (17:30)
--- NOTE | 2016-10-08 17:38 | Electrocardiograph Report ---
[address] [place] [address] Test Date: 2016-10-07 Pat Name: Cass Hernández Department: 109 Room: [facility] Gender: F Pre Parole Counseling Aide: : 1950 Requested By: Doug Tabares Order Number: [id number] Reading MD: Yara Mascorro Measurements Intervals [place] Rate: 101 P: 34 AR: 152 QRS: -31 QRSD: 85 T: 75 QT: 318 QTc: 376 Interpretive Statements SINUS TACHYCARDIA MARKED LEFT AXIS DEVIATION POSSIBLE ANTERIOR MYOCARDIAL INFARCTION, PROBABLY OLD Electronically Signed On 10-08-2016 17:36:21 EDT by Yara Mascorro
[2016-10-08 17:44] LABS: Albumin 2.8 g/dL (3.5-5.0); BUN/Creatinine Ratio 42 (6-26); Blood Urea Nitrogen 46 mg/dL (7-20); Calcium 8.9 mg/dL (8.6-10.8); Carbon Dioxide 23 mEq/L (19-29); Chloride 110 mEq/L (98-109); Glucose 145 mg/dL (70-99); Osmolality,Calculated 310 (280-300); Phosphorous 2.8 mg/dL (2.3-4.7); Potassium 3.6 mEq/L (3.5-4.5); Sodium 143 mEq/L (136-145); eGFR For African Americans > 60 (> 60); eGFR For Non-African Americans 50 (> 60)
--- NOTE | 2016-10-08 18:31 | EEG/EMG/Oth Biometrics Report ---
EEG Procedure Report Date of procedure: 10/08/16 EEG Procedure: Routine EEG Procedure Note: This is a report of a 21 channel bipolar and referential montage EEG. There is no posterior dominant alpha rhythm identified at any time during the recording. From the outset of the recording triphasic waves are present in all leads bilaterally. They remain present throughout the entire recording. Hyperventilation is not performed in recording. There is no normal sleep architecture identified at any time during the recording. Photic stimulation is performed and does not present a driving response. The EKG rhythm strip reveals normal sinus rhythm at 96 bpm. Impressions: This EEG is abnormal and is consistent with a severe metabolic encephalopathy. There is no evidence of epileptiform activity identified during the study. Comment: Triphasic waves are generally indicative of very severe underlying metabolic encephalopathy. Frequently associated with uremic or hepatic encephalopathy but not exclusively. Please correlate clinically. The documentation in the history of HPI and plan were at least partially created by [employer] voice recognition technology by Dr. Mejía. Errors in grammar, wording or other phrases may exist. If errors are found after the documentation signed, they will be addressed individually in the addendum section of this document when appropriate.
[2016-10-08] MEDS: Melatonin 3 MG TABLET PO SCH (19:18)
[2016-10-09] MEDS ORDERED: *HR* Metoprolol 5 MG/5 ML VIAL IVP ONE (02:19)
[2016-10-09] MEDS: Lacri-Lube 3.5 GM TUBE BOTH EYES SCH ×6 (02:50→23:10)
[2016-10-09 03:09] LABS: Hematocrit 25.7 % (35.3-44.9); Hemoglobin 7.7 g/dL (11.5-15.4); Mean Corpuscular Hemoglobin 26.5 pg (28.0-33.3); Mean Corpuscular Volume 88.3 fL (83.0-100.0); Mean Platelet Volume 10.4 fL (9.4-12.4); Platelet Count 104 K/mcL (140-400); Red Blood Count 2.91 M/mcL (3.82-4.97); Red Cell Distribution Width 18.9 % (11.5-14.5)
[2016-10-09] MEDS: FentaNYL (PF) 3,000 MCG in 0.9 % Sodium Chloride 240 ML IVC SCH ×2 (03:14→17:20)
[2016-10-09 03:24] LABS: Albumin 2.6 g/dL (3.5-5.0); BUN/Creatinine Ratio 49 (6-26); BUN/Creatinine Ratio 52 (6-26); Blood Urea Nitrogen 46 mg/dL (7-20); Blood Urea Nitrogen 47 mg/dL (7-20); Calcium 8.9 mg/dL (8.6-10.8); Carbon Dioxide 23 mEq/L (19-29); Carbon Dioxide 25 mEq/L (19-29); Chloride 112 mEq/L (98-109); Glucose 141 mg/dL (70-99); Glucose 142 mg/dL (70-99); Osmolality,Calculated 315 (280-300); Osmolality,Calculated 316 (280-300); Phosphorous 2.6 mg/dL (2.3-4.7); Potassium 3.3 mEq/L (3.5-4.5); Sodium 145 mEq/L (136-145); Sodium 146 mEq/L (136-145); eGFR For African Americans > 60 (> 60); eGFR For Non-African Americans > 60 (> 60)
[2016-10-09 03:28] LABS: Lymphocytes # 1.2 K/mcL (0.6-4.6); Monocytes # 1.2 K/mcL (0.0-1.3); Neutrophils # 9.8 K/mcL (1.6-8.9); Reactive Lymphocytes Present (Not Present)
[2016-10-09 03:29] LABS: Platelet Estimate Normal (Normal)
[2016-10-09 03:30] LABS: Anisocytosis 1+ (Not Present)
[2016-10-09] MEDS: Dexmedetomidine HCl 400 MCG/100 ML MLS IVC SCH ×5 (04:11→23:23)
[2016-10-09] MEDS: *HR* Enoxaparin 40 MG/0.4 ML SYRINGE SQ SCH (04:53)
[2016-10-09] MEDS ORDERED: Furosemide 40 MG/4 ML VIAL IVP ONE ×2 (08:01→15:36)
[2016-10-09] MEDS: Nystatin SUSP 5 ML UD.LIQ PO SCH ×4 (08:22→19:36)
[2016-10-09] MEDS: Ferrous Sulfate Oral Soln 300 MG/5 ML UDC PO SCH ×2 (08:22→16:27)
[2016-10-09] MEDS: Chlorhexidine Rinse 15 ML MOUTHWASH MM SCH ×2 (08:22→19:37)
[2016-10-09] MEDS: Pantoprazole 40 MG VIAL IVP SCH (08:22)
[2016-10-09] MEDS: Cholecalciferol (D-3) 1,000 UNIT TABLET PO SCH (08:22)
[2016-10-09] MEDS: Aspirin 81 MG TAB.CHEW PO SCH (08:22)
[2016-10-09] MEDS: Insulin LISPRO 300 UNITS/3 ML VIAL SQ SCH ×4 (08:23→19:59)
[2016-10-09] MEDS: hydrALAZINE 25 MG TABLET PO SCH ×3 (08:23→23:10)
[2016-10-09] MEDS: Furosemide 20 MG/2 ML VIAL IVP SCH (08:25)
[2016-10-09] MEDS: Docusate Oral Soln 100 MG/10 ML UDC GTUBE SCH ×2 (08:25→19:36)
[2016-10-09] MEDS: Bisacodyl 10 MG RECTAL SUPPOSITORY RC SCH (08:25)
[2016-10-09] MEDS: Vancomycin 1,750 MG in D5% in Water 500 ML IVPB SCH (08:26)
--- NOTE | 2016-10-09 08:55 | Pulmonology Progress Note ---
Date of Encounter: 10/09/16 Time of Encounter: 08:55 Assessment and Plan (1) Toxic metabolic encephalopathy Current Visit: Yes Status: Acute Neuropsych: Remains encephalopathic and delirious which is likely multifactorial. EEG done yesterday consistent with encephalopathy. We will check ammonia level today. Less agitation continue Precedex. Pulm: Intubated for altered mental status with concern for impending respiratory failure. Switch mode on vent to pressure support for improvement in patient ventilator synchrony. She is much more comfortable now continue diuresis for pulmonary edema Cards: Long-standing atrial flutter/fib rapid ventricular response today on Cardizem drip now improvement in rate reconsulting cardiology for this complex patient FEN-GI: GI prophylaxis given. Renal: Creatinine down trended overnight remains with acceptable UOP. Renally dose all meds. Continue diuresis today as tolerated by renal function ID: sepsis with ESBL UTI cont ertapenem wbc has normalized. Continue vancomycin pending cultures Heme/Onc: DVT prophylaxis given. Anemia is stable. Mild thrombocytopenia which is stable Endo: Glucose monitored sinus scale insulin given as needed Integ/MSK: Skin care per ICU protocol to prevent ulcers CODE: full code (2) Sepsis Current Visit: Yes Status: Acute Qualifiers: Sepsis type: sepsis due to unspecified organism Qualified Code(s): A41.9 - Sepsis, unspecified organism (3) ARF (acute renal failure) Current Visit: Yes Status: Acute Qualifiers: Acute renal failure type: unspecified Qualified Code(s): N17.9 - Acute kidney failure, unspecified (4) Acute blood loss anemia Current Visit: Yes Status: Acute (5) Acute respiratory failure with hypoxia Current Visit: Yes Status: Acute (6) Anemia Current Visit: Yes Status: Acute Qualifiers: Anemia type: unspecified type Qualified Code(s): D64.9 - Anemia, unspecified (7) UTI (urinary tract infection) Current Visit: Yes Status: Acute Qualifiers: Urinary tract infection type: acute cystitis Hematuria presence: without hematuria Qualified Code(s): N30.00 - Acute cystitis without hematuria (8) Atrial flutter Current Visit: Yes Status: Chronic Qualifiers: Atrial flutter type: typical Qualified Code(s): I48.3 - Typical atrial flutter (9) Thrombus of left atrial appendage Current Visit: Yes Status: Chronic (10) DVT prophylaxis Current Visit: No Status: Acute (11) Anticoagulated on Coumadin Current Visit: No Status: Chronic (12) CAD (coronary artery disease) Current Visit: No Status: Chronic Qualifiers: Coronary Disease-Associated Artery/Lesion type: bypass graft [place] vs. transplanted heart: [place] heart Associated angina: without angina Qualified Code(s): I25.810 - Atherosclerosis of coronary artery bypass graft(s) without angina pectoris (13) Chronic kidney disease Current Visit: No Status: Chronic Qualifiers: Chronic kidney disease stage: stage 3 (moderate) Qualified Code(s): N18.3 - Chronic kidney disease, stage 3 (moderate) (14) Morbid obesity Current Visit: No Status: Chronic Qualifiers: Obesity type: unspecified obesity type Qualified Code(s): E66.01 - Morbid ( severe) obesity due to excess calories Subjective Principal diagnosis: ARF, acute blood loss anemia Interval history: Afebrile overnight. Went into atrial fibrillation with rapid ventricular response over the course the evening was started on Cardizem drip now improvement in rate. Remains encephalopathic. Much less agitated only sedative at this time his Precedex. EEG performed yesterday Objective PUL Vital signs: Last Vital Signs Temp 98.5 F 10/09/16 07:42 Pulse 141 10/09/16 07:25 Resp 27 10/09/16 07:29 BP 135/82 10/09/16 07:29 Pulse Ox 96 10/09/16 07:29 General appearance: no acute distress, other (Increased respiratory rate on vent ) Effort: mildly labored Auscultation: bilateral: rales Cardiovascular: irregular rhythm Gastrointestinal: normoactive bowel sounds, soft, non-tender Extremities: edema Ventilator Settings Ventilator Settings: Ventilator Settings, Last 8 Hours Ventilator Mode A/C Ventilator Mode A/C Ventilator Mode A/C Ventilator Mode A/C Ventilator Mode A/C Ventilator Mode A/C Ventilator Mode A/C Ventilator Mode A/C Ventilator Mode A/C Ventilator Mode A/C Ventilator Mode A/C Ventilator Tidal Volume 420 Setting Ventilator Tidal Volume 420 Setting Ventilator Tidal Volume 420 Setting Ventilator Tidal Volume 420 Setting Ventilator Tidal Volume 420 Setting Ventilator Tidal Volume 420 Setting Ventilator Tidal Volume 420 Setting Ventilator Tidal Volume 420 Setting Ventilator Tidal Volume 420 Setting Ventilator Tidal Volume 420 Setting Ventilator Tidal Volume 420 Setting Ventilator Respiratory Rate 16 Setting Ventilator Respiratory Rate 16 Setting Ventilator Respiratory Rate 16 Setting Ventilator Respiratory Rate 16 Setting Ventilator Respiratory Rate 16 Setting Ventilator Respiratory Rate 16 Setting Ventilator Respiratory Rate 16 Setting Ventilator Respiratory Rate 16 Setting Ventilator Respiratory Rate 16 Setting Ventilator Respiratory Rate 16 Setting Ventilator Respiratory Rate 16 Setting Actual Respiratory Rate 27 Actual Respiratory Rate 27 Actual Respiratory Rate 28 Actual Respiratory Rate 31 Actual Respiratory Rate 28 Actual Respiratory Rate 28 Actual Respiratory Rate 23 Actual Respiratory Rate 28 Actual Respiratory Rate 28 Actual Respiratory Rate 30 Actual Respiratory Rate 28 Positive End Expiratory 5 Pressure Positive End Expiratory 5 Pressure Positive End Expiratory 5 Pressure Positive End Expiratory 5 Pressure Positive End Expiratory 5 Pressure Positive End Expiratory 5 Pressure Positive End Expiratory 5 Pressure Positive End Expiratory 5 Pressure Positive End Expiratory 5 Pressure Positive End Expiratory 5 Pressure Positive End Expiratory 5 Pressure Peak Inspiratory Airway 17 Pressure Peak Inspiratory Airway 20 Pressure Peak Inspiratory Airway 12 Pressure Peak Inspiratory Airway 20 Pressure Peak Inspiratory Airway 12 Pressure Peak Inspiratory Airway 15 Pressure Peak Inspiratory Airway 18 Pressure Peak Inspiratory Airway 12 Pressure Peak Inspiratory Airway 12 Pressure Peak Inspiratory Airway 19 Pressure Peak Inspiratory Airway 12 Pressure Results - Laboratory Findings CBC and BMP: 10/09/16 03:00 10/09/16 03:00 ABG ABG pH 7.31 pH Units (7.32-7.45) L 10/05/16 18:30 ABG pCO2 48 mmHg (35-45) H 10/05/16 18:30 ABG pO2 71 mmHg (85-104) L 10/05/16 18:30 ABG O2 Saturation 92 % (95-98) L 10/05/16 18:30 PT/INR, D-dimer PT 16.8 Seconds (9.4-12.1) H 10/06/16 08:00 Abnormal lab findings: Abnormal lab results WBC 12.3 K/mcL (4.3-11.1) H 10/09/16 03:00 RBC 2.91 M/mcL (3.82-4.97) L 10/09/16 03:00 Hgb 7.7 g/dL (11.5-15.4) L 10/09/16 03:00 Hct 25.7 % (35.3-44.9) L 10/09/16 03:00 MCH 26.5 pg (28.0-33.3) L 10/09/16 03:00 MCHC 30.0 g/dL (31.6-35.5) L 10/09/16 03:00 RDW 18.9 % (11.5-14.5) H 10/09/16 03:00 Plt Count 104 K/mcL (140-400) L 10/09/16 03:00 Band Neutrophils % 6.0 % (0-4) H 10/09/16 03:00 Neutrophils # 9.8 K/mcL (1.6-8.9) H 10/09/16 03:00 Nucleated RBCs/100 WBC 0.2 /100 WBC (0) H 10/08/16 02:53 Reactive Lymphocytes Present (Not Present) A 10/09/16 03:00 Polychromasia 1+ (Not Present) A 10/08/16 02:53 Basophilic Stippling 1+ (Not Present) A 10/08/16 02:53 Anisocytosis 1+ (Not Present) A 10/09/16 03:00 Microcytosis Present (Not Present) A 10/08/16 02:53 Macrocytosis Present (Not Present) A 10/08/16 02:53 PT 16.8 Seconds (9.4-12.1) H 10/06/16 08:00 ABG pH 7.31 pH Units (7.32-7.45) L 10/05/16 18:30 ABG pCO2 48 mmHg (35-45) H 10/05/16 18:30 ABG pO2 71 mmHg (85-104) L 10/05/16 18:30 ABG O2 Saturation 92 % (95-98) L 10/05/16 18:30 ABG Base Excess -2.1 mEq/L (-2.0 to 3.0) L 10/05/16 18:30 Sodium 146 mEq/L (136-145) H 10/09/16 03:00 Potassium 3.3 mEq/L (3.5-4.5) L 10/09/16 03:00 Chloride 112 mEq/L (98-109) H 10/09/16 03:00 BUN 46 mg/dL (7-20) H 10/09/16 03:00 BUN/Creatinine Ratio 49 (6-26) H 10/09/16 03:00 Glucose 141 mg/dL (70-99) H 10/09/16 03:00 POC Glucose 159 (58-89) H 10/09/16 07:11 Calculated Osmolality 316 (280-300) H 10/09/16 03:00 Uric Acid 10.1 mg/dL (2.6-6.0) H 09/30/16 04:37 Magnesium 1.5 mg/dL (1.6-2.6) L 10/08/16 02:53 Troponin I 0.06 ng/mL (0-0.03) H* 09/28/16 01:00 Albumin 2.6 g/dL (3.5-5.0) L 10/09/16 03:00 Albumin (PEP) 3.57 g/dL (3.75-5.01) L 09/30/16 04:37 Albumin/Globulin Ratio 1.0 (1.1-2.2) L 10/07/16 05:40 Urine Clarity Turbid (Clear) A 09/28/16 18:30 Ur Specific [place] > 1.030 (1.010-1.025) H 09/28/16 18:30 Urine Protein >=1000 mg/dL (Neg-Trace) H 09/28/16 18:30 Urine Glucose (UA) 100 mg/dL (Normal) H 09/28/16 18:30 Urine Ketones Trace mg/dL (Negative) H 09/28/16 18:30 Urine Bilirubin Small (Negative) H 09/28/16 18:30 Ur Leukocyte Esterase Moderate (Negative) H 09/28/16 18:30 Urine Microscopic WBC TNTC per hpf (0-3) H 09/28/16 18:30 Ur Squamous Epith Cells Many per lpf (None-Few) H 09/28/16 18:30 Amorphous Sediment Moderate (Few) H 09/28/16 18:30 Urine Bacteria Moderate per hpf (None-Few) H 09/28/16 18:30 Urine Yeast Few per hpf (None Seen) H 09/28/16 18:30 Ur Culture Indicated? YES (NO) A 09/28/16 18:30 Urine Total Protein 26 mg/dL (1-14) H 09/30/16 11:25 Stool Occult Blood Positive (Negative) A 09/27/16 13:48 Digoxin 2.4 ng/mL (0.8-2.0) H 09/28/16 06:46 - Microbiology Findings Microbiology Findings: Microbiology, Last 48 Hours 10/08/16 01:41 Blood Culture - Preliminary Peripheral Venipuncture No growth. 10/08/16 01:20 Sputum Culture - Preliminary Sputum 10/08/16 01:20 Urine Culture - Final Urine,Catheterized No growth. - Clinical Findings Intake & Output: Intake & Output 10/08/16 10/09/16 10/09/16 23:59 07:59 15:59 Intake Total 646 / 646 1131 / 1131 65 Output Total 500 / 500 650 / 650 Balance 146 / 146 481 / 481 - VTE Documentation of Mechanical Device: Intermittent pneumatic compression device Consult Discharge Plan - Plan Referrals: Ward Mcmanus MD [Primary Care Provider] - 10/08/16 2:00 pm () Eleni Edge CNP [Partnered Physician] - 10/12/16 8:45 am (in [place] office )
[2016-10-09] MEDS: Ertapenem 1,000 MG in 0.9 % Sodium Chloride Mini Bag 100 ML IVPB SCH (11:41)
[2016-10-09] MEDS ORDERED: Aminoglycoside Consult 1 EACH MC ONE (12:00)
--- NOTE | 2016-10-09 14:13 | Cardiology Progress Note ---
Date of Encounter: 10/09/16 Time of Encounter: 13:00 Assessment and Plan (1) Atrial flutter with rapid ventricular response Current Visit: No Status: Acute Longstanding history of AF/AFL now with RVR overnighttime. Noted on labs is a continued decline in blood count. May consider blood transfusion. Preferably would continue low dose aspirin given dysrhythmia and history of COSTA thrombus. Will defer to primary team. Suspect anemia is driving the return of RVR. Otherwise, she has mild congestive findings. Consider increasing diuresis to 40mg IV BID. Continue with PO metoprolol. Unable to uptitrate secondary to borderline BPs. She is not a candidate for antiarrhythmics since she cannot be anticoagulated. Recent echo with normal LV/RV function. Discussion w patient/family: The assessment and plan as outlined above was discussed with the patient and/or family members who expressed understanding and agreement. All questions were answered. Thank you for involving us in the care of your patient. Please call with any questions. Subjective Principal diagnosis: ARF, acute blood loss anemia Interval history: We have been asked to re-evaluate patient after going back into AF RVR overnight. She was initially admitted 09/27/2016 and has had a long hospital course. She was originally seen in consultation 09/27 by the Cardiology team after presenting for GIB. Previously she was worked up during a hospitalization 09/07/16 when she presented with Hgb 5.7. She did not have active bleeding found at that time. Coumadin was restarted at that time for COSTA thrombus. During this visit, coumadin has been stopped secondary to recurrent GIB, Hg 6.4 on admit requiring transfusion. Digoxin, metoprolol and cardizem were held at that time due to sinus bradycardia, HR 50's with an elevated Digoxin level 2.4. She has subsequently been transferred to ICU for toxic metabolic encephalopathy requiring intubation. At the bedside, she remains intubated. She does not follow commands. HR 100- 130's on cardizem gtt. CXR with pulmonary edema. Renal function normal. Objective Vital Signs, Last 4 Hours Temp Pulse Resp BP Pulse Ox 10/09/16 13:39 22 119/85 97 10/09/16 13:00 106 19 119/85 97 10/09/16 12:01 98.5 F 10/09/16 12:00 113 19 108/72 98 10/09/16 11:35 111 10/09/16 11:16 22 119/85 97 10/09/16 11:00 111 23 118/78 100 10/09/16 10:50 23 102/68 95 General: Other (intubated, does not follow commands) HEENT: Atraumatic, Other (ETT in place) Cardiac: Other (irregularly irregular) Lungs: Other (diminished breath sounds) Neuro: Other (intubated, not following commands) Abdomen: Soft, Other (bowel sounds present) Extremities: Other (mild edema bilaterally) Results 10/09/16 03:00 10/09/16 03:00 Lab Results 10/08/16 10/09/16 10/09/16 17:25 03:00 03:00 WBC 12.3 H Hgb 7.7 L Hct 25.7 L Plt Count 104 L Sodium 143 146 H Potassium 3.6 3.3 L Chloride 110 H 112 H Carbon Dioxide 23 23 BUN 46 H 46 H Creatinine 1.10 0.93 Glucose 145 H 141 H Calcium 8.9 8.9 10/09/16 03:00 WBC Hgb Hct Plt Count Sodium 145 Potassium 3.3 L Chloride 112 H Carbon Dioxide 25 BUN 47 H Creatinine 0.90 Glucose 142 H Calcium 9.0 - Imaging and Cardiology Chest Xray: report reviewed Echo: report reviewed - EKG Interpretation EKG results cardiology: other (24h telemetry reveals average HR 108 bpm, 7 beat NSVT) - VTE Documentation of Mechanical Device: Intermittent pneumatic compression device Consult Discharge Plan - Plan Referrals: Ward Mcmanus MD [Primary Care Provider] - 10/08/16 2:00 pm () Eleni Edge CNP [Partnered Physician] - 10/12/16 8:45 am (in [place] office )
[2016-10-09] MEDS ORDERED: *HR* Digoxin 0.5 MG/2 ML AMPUL IVP ONE (15:46)
[2016-10-09] MEDS: *HR* Metoprolol 5 MG/5 ML VIAL IVP PRN (18:40)
[2016-10-09 19:07] LABS: Albumin 2.6 g/dL (3.5-5.0); BUN/Creatinine Ratio 49 (6-26); Blood Urea Nitrogen 41 mg/dL (7-20); Calcium 8.9 mg/dL (8.6-10.8); Carbon Dioxide 26 mEq/L (19-29); Chloride 111 mEq/L (98-109); Glucose 177 mg/dL (70-99); Magnesium 1.2 mg/dL (1.6-2.6); Osmolality,Calculated 314 (280-300); Phosphorous 2.2 mg/dL (2.3-4.7); Sodium 145 mEq/L (136-145); eGFR For African Americans > 60 (> 60); eGFR For Non-African Americans > 60 (> 60)
[2016-10-09] MEDS: Melatonin 3 MG TABLET PO SCH (19:36)
[2016-10-09] MEDS: *HR* Digoxin 0.5 MG/2 ML AMPUL IVP SCH (23:10)
[2016-10-10] MEDS: *HR* Digoxin 0.5 MG/2 ML AMPUL IVP SCH (03:20)
[2016-10-10 03:37] LABS: Basophils % 0.2 %; Eosinophils # 0.2 K/mcL (0.0-0.6); Eosinophils % 2.4 %; Hematocrit 24.7 % (35.3-44.9); Hemoglobin 7.5 g/dL (11.5-15.4); Immature Granulocytes % 1.1 % (0-4); Lymphocytes # 1.7 K/mcL (0.6-4.6); Lymphocytes % 17.8 %; Mean Corpuscular HGB Conc 30.4 g/dL (31.6-35.5); Mean Corpuscular Hemoglobin 26.8 pg (28.0-33.3); Mean Corpuscular Volume 88.2 fL (83.0-100.0); Mean Platelet Volume 10.8 fL (9.4-12.4); Monocytes # 0.7 K/mcL (0.0-1.3); Monocytes % 7.5 %; Neutrophils # 6.6 K/mcL (1.6-8.9); Platelet Count 111 K/mcL (140-400); Red Cell Distribution Width 18.8 % (11.5-14.5)
[2016-10-10 03:50] LABS: Albumin 2.3 g/dL (3.5-5.0); BUN/Creatinine Ratio 53 (6-26); Blood Urea Nitrogen 42 mg/dL (7-20); Calcium 8.4 mg/dL (8.6-10.8); Carbon Dioxide 26 mEq/L (19-29); Chloride 110 mEq/L (98-109); Glucose 153 mg/dL (70-99); Magnesium 1.1 mg/dL (1.6-2.6); Osmolality,Calculated 314 (280-300); Phosphorous 3.1 mg/dL (2.3-4.7); Potassium 2.9 mEq/L (3.5-4.5); Sodium 145 mEq/L (136-145); eGFR For African Americans > 60 (> 60); eGFR For Non-African Americans > 60 (> 60)
[2016-10-10 03:57] LABS: Anisocytosis 2+ (Not Present)
[2016-10-10 03:58] LABS: Microcytosis Present (Not Present); Platelet Estimate Decreased (Normal)
[2016-10-10] MEDS ORDERED: Magnesium Sulfate 2 GM in D5% in Water 100 ML IVPB ONE (04:12)
[2016-10-10] MEDS: Lacri-Lube 3.5 GM TUBE BOTH EYES SCH ×6 (04:25→23:41)
[2016-10-10] MEDS ORDERED: Potassium Chloride Elixir 20 MEQ/15 ML UDC PO SCH (04:30)
[2016-10-10] MEDS: Dexmedetomidine HCl 400 MCG/100 ML MLS IVC SCH ×3 (04:42→20:00)
[2016-10-10] MEDS: *HR* Enoxaparin 40 MG/0.4 ML SYRINGE SQ SCH (05:20)
[2016-10-10 06:06] LABS: Acinetobacter baumannii by PCR Not Detected (Not Detect); Candida albicans by PCR Not Detected (Not Detect); Candida glabrata by PCR Not Detected (Not Detect); Candida krusei by PCR Not Detected (Not Detect); Candida parapsilosis by PCR Not Detected (Not Detect); Candida tropicalis by PCR Not Detected (Not Detect); Enterococcus by PCR Not Detected (Not Detect); Escherichia coli by PCR Not Detected (Not Detect); Klebsiella oxytoca by PCR Not Detected (Not Detect); Klebsiella pneumoniae by PCR Not Detected (Not Detect); Pseudomonas aeruginosa by PCR Not Detected (Not Detect); Serratia marcescens by PCR Not Detected (Not Detect); Staphylococcus aureus by PCR Not Detected (Not Detect); Streptococcus agalactiae(B)PCR Not Detected (Not Detect); Streptococcus by PCR Not Detected (Not Detect); Streptococcus pneumoniae PCR Not Detected (Not Detect); Streptococcus pyogenes (A) PCR Not Detected (Not Detect)
[2016-10-10] MEDS ORDERED: Calcium Gluconate 1,000 MG in D5% in Water 100 ML IVPB PRN (07:44)
[2016-10-10] MEDS ORDERED: Sodium Phosphate 30 MMOL in D5% in Water 100 ML IVPB PRN (07:44)
[2016-10-10] MEDS: FentaNYL (PF) 1,000 MCG in 0.9 % Sodium Chloride 80 ML IVC SCH ×2 (08:17→20:01)
--- NOTE | 2016-10-10 08:20 | Pulmonology Progress Note ---
Date of Encounter: 10/10/16 Time of Encounter: 08:19 Assessment and Plan (1) Toxic metabolic encephalopathy Current Visit: Yes Status: Acute Neuropsych: Multifactorial encephalopathy including medication cannot exclude antimicrobial effect of ertapenem. Ammonia level within normal limits neurology consult today Cont Precedex for agitation . Pulm: Intubated for altered mental status with concern for impending respiratory failure. Doing well on pressure support ventilation with acceptable oxygenation . Continue diuresis for pulmonary edema Cards: Long-standing atrial flutter/fib with RVR yesterday despite high doses of Cardizem drip loaded with digoxin and heart rate now controlled intermittently between sinus and A. fib pattern. Titrate dose of by mouth metoprolol cardiology has been consulted. I will address again with family need for ongoing full anticoagulation for CVA prophylaxis family has been recalcitrant to this in the past but will discuss again as I feel that the risk benefit favors treatment. FEN-GI: GI prophylaxis given. Continue enteral nutrition's she continues to have bowel movements Renal: hypokalemia hypomagnesemia noted and is being repleted. continue diuresis and check twice daily electrolyte panel replace per protocol ID: sepsis with ESBL UTI cont ertapenem wbc has normalized blood cultures done on 10/08 notable for gram-negative negative bacteremia . Repeat blood cultures today switch from ertapenem to piperacillin/tazobactam Heme/Onc: DVT prophylaxis given. Anemia is stable. Mild thrombocytopenia which is stable Endo: Glucose monitored sinus scale insulin given as needed Integ/MSK: Skin care per ICU protocol to prevent ulcers CODE: full code. Family updated at bedside (2) Sepsis Current Visit: Yes Status: Acute Qualifiers: Qualified Code(s): A41.9 - Sepsis, unspecified organism (3) ARF (acute renal failure) Current Visit: Yes Status: Acute Qualifiers: Qualified Code(s): N17.9 - Acute kidney failure, unspecified (4) Acute blood loss anemia Current Visit: Yes Status: Acute (5) Acute respiratory failure with hypoxia Current Visit: Yes Status: Acute (6) Anemia Current Visit: Yes Status: Acute Qualifiers: Qualified Code(s): D64.9 - Anemia, unspecified (7) UTI (urinary tract infection) Current Visit: Yes Status: Acute Qualifiers: Qualified Code(s): N30.00 - Acute cystitis without hematuria (8) Atrial flutter Current Visit: Yes Status: Chronic Qualifiers: Qualified Code(s): I48.3 - Typical atrial flutter (9) Thrombus of left atrial appendage Current Visit: Yes Status: Chronic (10) DVT prophylaxis Current Visit: No Status: Acute (11) Anticoagulated on Coumadin Current Visit: No Status: Chronic (12) CAD (coronary artery disease) Current Visit: No Status: Chronic Qualifiers: Qualified Code(s): I25.810 - Atherosclerosis of coronary artery bypass graft( s) without angina pectoris (13) Chronic kidney disease Current Visit: No Status: Chronic Qualifiers: Qualified Code(s): N18.3 - Chronic kidney disease, stage 3 (moderate) (14) Morbid obesity Current Visit: No Status: Chronic Qualifiers: Qualified Code(s): E66.01 - Morbid (severe) obesity due to excess calories Subjective Principal diagnosis: ARF, acute blood loss anemia Interval history: Remains afebrile. A. fib with RVR yesterday continued with elevated heart rates in the 130s to 160s despite high dose of Cardizem infusion. She was loaded with digoxin rate has subsequently improved she is now off Cardizem infusion. Remains encephalopathic she continues to demonstrate agitation in the bed which is in large part controlled with infusion of Precedex. Objective PUL Vital signs: Last Vital Signs Temp 98.2 F 10/10/16 08:00 Pulse 80 10/10/16 08:00 Resp 17 10/10/16 08:00 BP 140/73 10/10/16 08:00 Pulse Ox 98 10/10/16 08:00 General appearance: other (Noted to move all extremities in bed she continues to show quite a bit of movement including side turning side to side sliding up and down in the bed) Effort: normal Auscultation: bilateral: diminished breath sounds Cardiovascular: irregular rhythm Gastrointestinal: normoactive bowel sounds, non-tender Extremities: edema pupils equal and round, other (She does move all extremities without focal area of weakness noted.) Ventilator Settings Ventilator Settings: Ventilator Settings, Last 8 Hours Ventilator Mode CPAP Ventilator Mode CPAP Ventilator Mode CPAP Ventilator Mode A/C Ventilator Mode A/C Ventilator Mode A/C Ventilator Mode A/C Ventilator Mode A/C Ventilator Mode A/C Ventilator Mode A/C Ventilator Mode A/C Ventilator Tidal Volume 420 Setting Ventilator Tidal Volume 420 Setting Ventilator Tidal Volume 420 Setting Ventilator Tidal Volume 420 Setting Ventilator Tidal Volume 420 Setting Ventilator Tidal Volume 420 Setting Ventilator Tidal Volume 420 Setting Ventilator Tidal Volume 420 Setting Ventilator Respiratory Rate 16 Setting Ventilator Respiratory Rate 16 Setting Ventilator Respiratory Rate 16 Setting Ventilator Respiratory Rate 16 Setting Ventilator Respiratory Rate 16 Setting Ventilator Respiratory Rate 16 Setting Ventilator Respiratory Rate 16 Setting Ventilator Respiratory Rate 16 Setting Actual Respiratory Rate 17 Actual Respiratory Rate 14 Actual Respiratory Rate 14 Actual Respiratory Rate 20 Actual Respiratory Rate 20 Actual Respiratory Rate 18 Actual Respiratory Rate 19 Actual Respiratory Rate 21 Actual Respiratory Rate 21 Actual Respiratory Rate 18 Actual Respiratory Rate 20 Positive End Expiratory 5 Pressure Positive End Expiratory 5 Pressure Positive End Expiratory 5 Pressure Positive End Expiratory 5 Pressure Positive End Expiratory 5 Pressure Positive End Expiratory 5 Pressure Positive End Expiratory 5 Pressure Positive End Expiratory 5 Pressure Positive End Expiratory 5 Pressure Positive End Expiratory 5 Pressure Positive End Expiratory 5 Pressure Peak Inspiratory Airway 19 Pressure Peak Inspiratory Airway 17 Pressure Peak Inspiratory Airway 15 Pressure Peak Inspiratory Airway 25 Pressure Peak Inspiratory Airway 25 Pressure Peak Inspiratory Airway 25 Pressure Peak Inspiratory Airway 25 Pressure Peak Inspiratory Airway 21 Pressure Peak Inspiratory Airway 21 Pressure Peak Inspiratory Airway 21 Pressure Peak Inspiratory Airway 20 Pressure Results - Laboratory Findings CBC and BMP: 10/10/16 03:30 10/10/16 03:30 ABG ABG pH 7.31 pH Units (7.32-7.45) L 10/05/16 18:30 ABG pCO2 48 mmHg (35-45) H 10/05/16 18:30 ABG pO2 71 mmHg (85-104) L 10/05/16 18:30 ABG O2 Saturation 92 % (95-98) L 10/05/16 18:30 PT/INR, D-dimer PT 16.8 Seconds (9.4-12.1) H 10/06/16 08:00 Abnormal lab findings: Abnormal lab results RBC 2.80 M/mcL (3.82-4.97) L 10/10/16 03:30 Hgb 7.5 g/dL (11.5-15.4) L 10/10/16 03:30 Hct 24.7 % (35.3-44.9) L 10/10/16 03:30 MCH 26.8 pg (28.0-33.3) L 10/10/16 03:30 MCHC 30.4 g/dL (31.6-35.5) L 10/10/16 03:30 RDW 18.8 % (11.5-14.5) H 10/10/16 03:30 Plt Count 111 K/mcL (140-400) L 10/10/16 03:30 Band Neutrophils % 6.0 % (0-4) H 10/09/16 03:00 Nucleated RBCs/100 WBC 0.2 /100 WBC (0) H 10/08/16 02:53 Reactive Lymphocytes Present (Not Present) A 10/09/16 03:00 Platelet Estimate Decreased (Normal) L 10/10/16 03:30 Polychromasia 1+ (Not Present) A 10/08/16 02:53 Basophilic Stippling 1+ (Not Present) A 10/08/16 02:53 Anisocytosis 2+ (Not Present) A 10/10/16 03:30 Microcytosis Present (Not Present) A 10/10/16 03:30 Macrocytosis Present (Not Present) A 10/08/16 02:53 PT 16.8 Seconds (9.4-12.1) H 10/06/16 08:00 ABG pH 7.31 pH Units (7.32-7.45) L 10/05/16 18:30 ABG pCO2 48 mmHg (35-45) H 10/05/16 18:30 ABG pO2 71 mmHg (85-104) L 10/05/16 18:30 ABG O2 Saturation 92 % (95-98) L 10/05/16 18:30 ABG Base Excess -2.1 mEq/L (-2.0 to 3.0) L 10/05/16 18:30 Potassium 2.9 mEq/L (3.5-4.5) L 10/10/16 03:30 Chloride 110 mEq/L (98-109) H 10/10/16 03:30 BUN 42 mg/dL (7-20) H 10/10/16 03:30 BUN/Creatinine Ratio 53 (6-26) H 10/10/16 03:30 Glucose 153 mg/dL (70-99) H 10/10/16 03:30 POC Glucose 146 (58-89) H 10/10/16 07:35 Calculated Osmolality 314 (280-300) H 10/10/16 03:30 Uric Acid 10.1 mg/dL (2.6-6.0) H 09/30/16 04:37 Calcium 8.4 mg/dL (8.6-10.8) L 10/10/16 03:30 Magnesium 1.1 mg/dL (1.6-2.6) L 10/10/16 03:30 Troponin I 0.06 ng/mL (0-0.03) H* 09/28/16 01:00 Albumin 2.3 g/dL (3.5-5.0) L 10/10/16 03:30 Albumin (PEP) 3.57 g/dL (3.75-5.01) L 09/30/16 04:37 Albumin/Globulin Ratio 1.0 (1.1-2.2) L 10/07/16 05:40 Urine Clarity Turbid (Clear) A 09/28/16 18:30 Ur Specific [place] > 1.030 (1.010-1.025) H 09/28/16 18:30 Urine Protein >=1000 mg/dL (Neg-Trace) H 09/28/16 18:30 Urine Glucose (UA) 100 mg/dL (Normal) H 09/28/16 18:30 Urine Ketones Trace mg/dL (Negative) H 09/28/16 18:30 Urine Bilirubin Small (Negative) H 09/28/16 18:30 Ur Leukocyte Esterase Moderate (Negative) H 09/28/16 18:30 Urine Microscopic WBC TNTC per hpf (0-3) H 09/28/16 18:30 Ur Squamous Epith Cells Many per lpf (None-Few) H 09/28/16 18:30 Amorphous Sediment Moderate (Few) H 09/28/16 18:30 Urine Bacteria Moderate per hpf (None-Few) H 09/28/16 18:30 Urine Yeast Few per hpf (None Seen) H 09/28/16 18:30 Ur Culture Indicated? YES (NO) A 09/28/16 18:30 Urine Total Protein 26 mg/dL (1-14) H 09/30/16 11:25 Stool Occult Blood Positive (Negative) A 09/27/16 13:48 Digoxin 2.4 ng/mL (0.8-2.0) H 09/28/16 06:46 - Microbiology Findings Microbiology Findings: Microbiology, Last 48 Hours 10/08/16 01:41 Blood Culture - Preliminary Peripheral Venipuncture Gram Negative Matty 10/08/16 01:20 Sputum Culture - Final Sputum 10/08/16 01:20 Urine Culture - Final Urine,Catheterized No growth. - Clinical Findings Intake & Output: Intake & Output 10/09/16 10/10/16 10/10/16 23:59 07:59 15:59 Intake Total 1420 / 1420 856 / 856 Output Total 2950 / 2950 450 / 450 Balance -1530 / -1530 406 / 406 - VTE Documentation of Mechanical Device: Intermittent pneumatic compression device Consult Discharge Plan - Plan Referrals: Ward Mcmanus MD [Primary Care Provider] - 10/08/16 2:00 pm () Eleni Edge CNP [Partnered Physician] - 10/12/16 8:45 am (in [place] office )
[2016-10-10] MEDS: Insulin LISPRO 300 UNITS/3 ML VIAL SQ SCH ×4 (08:22→20:02)
[2016-10-10] MEDS: hydrALAZINE 25 MG TABLET PO SCH ×3 (08:23→23:41)
[2016-10-10] MEDS: Pantoprazole 40 MG VIAL IVP SCH (08:23)
[2016-10-10] MEDS: Aspirin 81 MG TAB.CHEW PO SCH (08:23)
[2016-10-10] MEDS: Bisacodyl 10 MG RECTAL SUPPOSITORY RC SCH (08:23)
[2016-10-10] MEDS: Chlorhexidine Rinse 15 ML MOUTHWASH MM SCH ×2 (08:23→19:58)
[2016-10-10] MEDS: Ferrous Sulfate Oral Soln 300 MG/5 ML UDC PO SCH ×2 (08:23→16:43)
[2016-10-10] MEDS: Furosemide 20 MG/2 ML VIAL IVP SCH (08:23)
[2016-10-10] MEDS: Docusate Oral Soln 100 MG/10 ML UDC GTUBE SCH ×2 (08:23→19:58)
[2016-10-10] MEDS: Cholecalciferol (D-3) 1,000 UNIT TABLET PO SCH (08:24)
[2016-10-10] MEDS: Nystatin SUSP 5 ML UD.LIQ PO SCH ×4 (08:24→19:58)
[2016-10-10] MEDS ORDERED: *HR* Digoxin 0.125 MG TABLET PO SCH (09:00)
[2016-10-10] MEDS ORDERED: WATER IVPB ONE ×2 (09:42→18:18)
[2016-10-10] MEDS ORDERED: D5 IVPB ONE ×2 (09:42→18:18)
[2016-10-10] MEDS ORDERED: FOSPHENYTOIN IVPB ONE ×2 (09:42→18:18)
--- NOTE | 2016-10-10 09:50 | Neurosurgical History&Physical ---
Date of Encounter: 10/10/16 Time of Encounter: 09:45 Assessment and Plan (1) Non-convulsive status epilepticus Current visit: Yes Status: Acute Suspect NCSE/encephalopathy in the setting of Ertapenem in a patient with renal failure, and several reports have been described. Status Epilepticus and Delirium Associated with Ertapenem in a Very Elderly Patient with Chronic Kidney Disease and Silent Ischaemic Cerebrovascular Disease. Kenji Alvarez. Drug Saf Case Rep. 2014;2(1):19. PMID: [id number] Free PMC Article Similar articles Select item [id number] 2. Ertapenem Associated With Seizures in Treatment of Pyelonephritis in a Chronic Peritoneal Dialysis Patient. Celia F, Meka H, Emma F. Ther Apher Dial. 2015;20(1):89-90. doi: 10.1111/6702-8985.32425. Epub 2014Jun 03. No abstract available. PMID: [id number] Similar articles Select item [id number] 3. 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 Kandi E, Tk SUBRAMANIAN, Galileo T, Jhoan S, Perla T, Milo Ma. Clin Nephrol. 2015 May;84(6):353-7. doi: 10.5414/OG159418. PMID: [id number] Treatment: Stop Ertapenem, resolve kidney issues (resolving, in this case), Fosphenytoin for seizure control Exclude Stroke, intracranial bleed with MRI brain and CT Head, respectively. (2) Altered mental status Current visit: Yes Status: Acute Same as above. Will follow the results. Qualifiers: Altered mental status type: stupor Qualified Code(s): R40.1 - Stupor History of Present Illness HPI: Ms. Hernández is a 65 year old female who is being consulted for altered mental state. Pt was originally placed on coumadin in Jun for Atrial flutter/clot in the heart following which she developed GI bleed. Pt was hospitalized at that time and since then her hospital course has been complicated with UTI, AMS, requiring intubation and acute kidney failure. She has been placed on Ertapenem on 10/04 at which time her Creatinine was elevated, greater than 1.5. Since then she has been found to be moving all her extremities, but not conversing or interacting. she had an EEG on 10/08 which showed triphasic waves, but ammonia was normal. Neurology was consulted today for further evaluation. No fever, no chills, no sweats, noticed by the staff. Past Med Surg Social Fam HX - Past Medical History Medical history: asthma, cancer, CHF, diabetes, GI bleed, hyperlipidemia, hypertension Psychiatric history: anxiety - Past Surgical History Surgical History: appendectomy, breast surgery, coronary bypass (CABG) - Social History Smoking Status: Former smoker Smokeless Tobacco Status: No Alcohol use: none Drug use: none - Family History Father Adopted: No Family Member Ethnicity: Non- Living Status: Hx Family Cardiac Disorders: Yes Hx Family Respiratory Disorders: Yes Hx Family Cancer: Yes (Liver cancer) Hx Family GI Disorders: No Hx Family Endocrine Disorder: Yes Hx Family Neuromuscular Disorders: No Hx Family Neurologic Disorders: No Hx Family HEENT Disorders: No Hx Family Autoimmune Disorders: No Medications and Allergies Cholecalciferol (D-3) [Vitamin D] 2,000 unit PO DAILY 04/18/16 [History] Diphenoxylate/Atropine [Lomotil 2.5 mg/0.025 mg] 1 tab PO BID PRN 04/18/16 [ History] Gabapentin [Neurontin] 900 mg PO HS 04/18/16 [History] Losartan/Hydrochlorothiazide [Hyzaar 100-12.5 Tablet] 1 tab PO DAILY 04/18/16 [ History] Metformin HCl [Metformin HCl ER] 500 mg PO BID 04/18/16 [History] Aspirin Enteric Coated [Aspirin EC] 81 mg PO DAILY #30 tablet. 06/14/16 [Rx] Digoxin [Lanoxin] 0.125 mg PO DAILY #30 tablet 06/14/16 [Rx] Citalopram Hydrobromide [Celexa] 30 mg PO DAILY 07/23/16 [History] Metoprolol Succinate 200 mg PO BID 07/23/16 [History] Warfarin [Coumadin] 2 mg PO SUFR 07/23/16 [History] Warfarin [Coumadin] 4 mg PO MOTUWETHSA 07/23/16 [History] Diltiazem CD (24hr) [Cardizem CD] 120 mg PO DAILY #30 cap.er.24h 07/26/16 [Rx] Ferrous Sulfate 325 mg PO BIDWM #30 tablet 09/10/16 [Rx] Albuterol Sulfate [Albuterol Inhaler] 2 puff IH Q4H PRN 09/27/16 [History] Amoxicillin [Amoxil] 500 mg PO QID 09/27/16 [History] Atorvastatin Calcium [Lipitor] 20 mg PO HS 09/27/16 [History] Clarithromycin [Biaxin] 500 mg PO BID 09/27/16 [History] Fluticasone/Salmeterol [Advair Hfa 230-21 Mcg Inhaler] 2 puff IH BID 09/27/16 [ History] Pantoprazole Sodium [Protonix] 40 mg PO BID 09/27/16 [History] Allergies No Known Allergies Allergy (Verified 06/12/16 09:27) All Systems: A 10-system review of systems was performed and is negative for pertinent findings except as documented above in the HPI. - Constitutional Constitutional ROS IM: as per HPI Physical Examination - Vital Signs Vital Signs: Initial Vital Signs Vital Signs - Last 8 Hours Temp Pulse Resp BP Pulse Ox 10/10/16 09:00 95 15 174/77 100 10/10/16 08:00 98.2 F 80 17 140/73 98 10/10/16 07:36 90 10/10/16 07:00 85 14 160/74 10/10/16 06:30 14 104/48 99 10/10/16 06:00 56 18 104/48 100 10/10/16 05:00 54 18 101/47 100 10/10/16 04:00 97.7 F 57 18 104/57 100 10/10/16 03:56 19 100/60 100 10/10/16 03:00 64 19 102/57 98 10/10/16 02:00 82 18 109/60 94 Intake and Output 10/09/16 10/10/16 10/10/16 23:59 07:59 15:59 Intake Total 1420 / 1420 856 / 856 50 / 50 Output Total 2950 / 2950 450 / 450 Balance -1530 / -1530 406 / 406 50 / 50 Intake: IV Fluids 326 / 326 100 / 100 50 / 50 PRECEDEX 400 mcg In 100 200 / 200 100 / 100 50 / 50 ml @ 0.2 MCG/KG/HR 5.126 mls/hr IVC .[id number] [facility] Rx#:[id number] Cardizem 125 MG In 120 / 120 Dextrose 5% 100 ML @ 5 MG /HR 5 mls/hr IVC .Q24H [facility] Rx#:[id number] FentaNYL (PF) 3,000 MCG 6 / 6 In 0.9 % Sodium Chloride 240 ML @ 50 MCG/HR 5 mls/ hr IVC CONT [facility] Rx#: [id number] Oral 0 / 0 0 / 0 Tube Feeding 294 / 294 156 / 156 Free Water 400 / 400 200 / 200 Free Water Intake Amount 400 / 400 400 / 400 Output: Catheter 2950 / 2950 450 / 450 Other: Blood Glucose* 178 - Constitutional General appearance: uncomfortable (seems to be writhing, moving purposeless, but moves all extremities. No interaction. Has Roving Eyes and Hippus bilaterally.) - Neurologic Sensorimotor examination: other (withdraws to pain stimulus x 4 extremities) Detailed motor examination: other (moving all extremities spontaneously. No purposeful movements. head movements to the left and right, in addition, occasionally) Detailed sensory examination: other (withdraws to pain x 4 ) Posture: other (non-purposeful movements) Reflex and gait examination: other (Generalized hyper-reflexia) Reflexes: Biceps: 3+, Triceps: 3+, Brachioradialis: 3+, Patella: 3+, Achilles: 3 + (Bilaterally up going toes.) Mental Status Examination: does not follow commands, stupor (obtunded), opens eyes to voice, opens eyes to noxious stimulation, makes eye contact, localizes noxious stimulation, no spontaneous eye opening to voice or tactile stimulation (looks at the direction of the examiner, but does not follow commands) Mental Status Examination: Has Roving eyes. Has hippus bilaterally. Cranial nerve examination: PERRL (3 mm pupils, but has Hippus bilaterally), EOMI (roving eyes, but eyes move to left and to right), visual bass intact ( does not close eyes to visual threat), corneal reflexes brisk symmetrically, sensory to face intact, no facial asymmetry is present Fundoscopic: papilledema: Bilateral (no papilledema) Cerebellar examination: no dysmetria (could not be tested) Results - Laboratory Findings CBC and BMP: 10/10/16 03:30 10/10/16 03:30 Abnormal lab findings: Abnormal lab results RBC 2.80 M/mcL (3.82-4.97) L 10/10/16 03:30 Hgb 7.5 g/dL (11.5-15.4) L 10/10/16 03:30 Hct 24.7 % (35.3-44.9) L 10/10/16 03:30 MCH 26.8 pg (28.0-33.3) L 10/10/16 03:30 MCHC 30.4 g/dL (31.6-35.5) L 10/10/16 03:30 RDW 18.8 % (11.5-14.5) H 10/10/16 03:30 Plt Count 111 K/mcL (140-400) L 10/10/16 03:30 Band Neutrophils % 6.0 % (0-4) H 10/09/16 03:00 Nucleated RBCs/100 WBC 0.2 /100 WBC (0) H 10/08/16 02:53 Reactive Lymphocytes Present (Not Present) A 10/09/16 03:00 Platelet Estimate Decreased (Normal) L 10/10/16 03:30 Polychromasia 1+ (Not Present) A 10/08/16 02:53 Basophilic Stippling 1+ (Not Present) A 10/08/16 02:53 Anisocytosis 2+ (Not Present) A 10/10/16 03:30 Microcytosis Present (Not Present) A 10/10/16 03:30 Macrocytosis Present (Not Present) A 10/08/16 02:53 PT 16.8 Seconds (9.4-12.1) H 10/06/16 08:00 ABG pH 7.31 pH Units (7.32-7.45) L 10/05/16 18:30 ABG pCO2 48 mmHg (35-45) H 10/05/16 18:30 ABG pO2 71 mmHg (85-104) L 10/05/16 18:30 ABG O2 Saturation 92 % (95-98) L 10/05/16 18:30 ABG Base Excess -2.1 mEq/L (-2.0 to 3.0) L 10/05/16 18:30 Potassium 2.9 mEq/L (3.5-4.5) L 10/10/16 03:30 Chloride 110 mEq/L (98-109) H 10/10/16 03:30 BUN 42 mg/dL (7-20) H 10/10/16 03:30 BUN/Creatinine Ratio 53 (6-26) H 10/10/16 03:30 Glucose 153 mg/dL (70-99) H 10/10/16 03:30 POC Glucose 146 (58-89) H 10/10/16 07:35 Calculated Osmolality 314 (280-300) H 10/10/16 03:30 Uric Acid 10.1 mg/dL (2.6-6.0) H 09/30/16 04:37 Calcium 8.4 mg/dL (8.6-10.8) L 10/10/16 03:30 Magnesium 1.1 mg/dL (1.6-2.6) L 10/10/16 03:30 Troponin I 0.06 ng/mL (0-0.03) H* 09/28/16 01:00 Albumin 2.3 g/dL (3.5-5.0) L 10/10/16 03:30 Albumin (PEP) 3.57 g/dL (3.75-5.01) L 09/30/16 04:37 Albumin/Globulin Ratio 1.0 (1.1-2.2) L 10/07/16 05:40 Urine Clarity Turbid (Clear) A 09/28/16 18:30 Ur Specific [place] > 1.030 (1.010-1.025) H 09/28/16 18:30 Urine Protein >=1000 mg/dL (Neg-Trace) H 09/28/16 18:30 Urine Glucose (UA) 100 mg/dL (Normal) H 09/28/16 18:30 Urine Ketones Trace mg/dL (Negative) H 09/28/16 18:30 Urine Bilirubin Small (Negative) H 09/28/16 18:30 Ur Leukocyte Esterase Moderate (Negative) H 09/28/16 18:30 Urine Microscopic WBC TNTC per hpf (0-3) H 09/28/16 18:30 Ur Squamous Epith Cells Many per lpf (None-Few) H 09/28/16 18:30 Amorphous Sediment Moderate (Few) H 09/28/16 18:30 Urine Bacteria Moderate per hpf (None-Few) H 09/28/16 18:30 Urine Yeast Few per hpf (None Seen) H 09/28/16 18:30 Ur Culture Indicated? YES (NO) A 09/28/16 18:30 Urine Total Protein 26 mg/dL (1-14) H 09/30/16 11:25 Stool Occult Blood Positive (Negative) A 09/27/16 13:48 Digoxin 2.4 ng/mL (0.8-2.0) H 09/28/16 06:46 - Diagnostic Findings Additional findings: EEG - 10/04 - encephalopathy with triphasic waves, no seizures - VTE Documentation of Mechanical Device: Intermittent pneumatic compression device
[2016-10-10] MEDS: Magnesium Sulfate 2 GM in D5% in Water 100 ML IVPB PRN ×2 (11:09→21:37)
--- NOTE | 2016-10-10 12:30 | Cardiology Progress Note ---
Date of Encounter: 10/10/16 Time of Encounter: 10:00 Assessment and Plan (1) Atrial flutter with rapid ventricular response Current Visit: No Status: Acute Longstanding history of AF/AFL. Re-consulted yesterday for RVR and now back in NSR. Continue PO metoprolol and diuresis. Can consider uptitration of BB as blood pressure allows. She is not a candidate for antiarrhythmics since she cannot be fully anticoagulated. Aspirin has been reintroduced. 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 Ideally, patient would be fully anticoagulated but given the circumstances and the risk of future bleeding, reintroducing coumadin may not be an optimal choice. She is however, at high risk for CVA. The primary team has re-introduced aspirin. Discussion w patient/family: No further cardiac recommendations at this time. We will sign off. Please call with questions. Subjective Principal diagnosis: ARF, acute blood loss anemia Interval history: Patient is back in NSR. She remains intubated and sedated thought to have toxic encephalopathy. Objective Vital Signs, Last 4 Hours Temp Pulse Resp BP Pulse Ox 10/10/16 12:15 97.8 F 10/10/16 11:00 73 14 116/67 94 10/10/16 10:00 97 16 153/72 95 10/10/16 09:00 95 15 174/77 100 General: Other (intubated, does not follow commands) HEENT: Atraumatic, Other (ETT in place) Cardiac: Normal S1 and S2 Lungs: Normal Breath Sounds Neuro: Other (intubated, does not follow commands) Abdomen: Soft, Other (bowel sounds soft) Extremities: Other (bilateral LE edema) Results 10/10/16 03:30 10/10/16 03:30 Lab Results 10/09/16 10/10/16 10/10/16 18:45 03:30 03:30 WBC 9.3 Hgb 7.5 L Hct 24.7 L Plt Count 111 L Sodium 145 145 Potassium 3.0 L 2.9 L Chloride 111 H 110 H Carbon Dioxide 26 26 BUN 41 H 42 H Creatinine 0.83 0.80 Glucose 177 H 153 H Calcium 8.9 8.4 L Magnesium 1.2 L 1.1 L - EKG Interpretation EKG results cardiology: other (average HR 95 overnight, no concerning dysrhythmia) - VTE Documentation of Mechanical Device: Intermittent pneumatic compression device Consult Discharge Plan - Plan Referrals: Ward Mcmanus MD [Primary Care Provider] - 10/08/16 2:00 pm () Eleni Edge CNP [Partnered Physician] - 10/12/16 8:45 am (in [facility] office )
[2016-10-10] MEDS: *HR* Midazolam HCl 2 MG/2 ML VIAL IVP PRN ×2 (13:42→14:25)
[2016-10-10] MEDS: Piperacillin/Tazobactam 3.375 GM in D5% in Water (Mini-Bag+) 100 ML IVPB SCH ×2 (16:43→23:41)
[2016-10-10] MEDS: Melatonin 3 MG TABLET PO SCH (19:58)
[2016-10-10 20:31] LABS: Magnesium 1.6 mg/dL (1.6-2.6); Potassium 3.7 mEq/L (3.5-4.5)
[2016-10-10] MEDS ORDERED: WATER IVPB SCH (21:00)
[2016-10-10] MEDS ORDERED: FOSPHENYTOIN IVPB SCH (21:00)
[2016-10-10] MEDS ORDERED: D5 IVPB SCH (21:00)
[2016-10-11 03:37] LABS: Basophils # 0.1 K/mcL (0.0-0.2); Basophils % 0.6 %; Eosinophils # 0.3 K/mcL (0.0-0.6); Eosinophils % 2.8 %; Hematocrit 28.1 % (35.3-44.9); Hemoglobin 8.4 g/dL (11.5-15.4); Immature Granulocytes % 1.5 % (0-4); Lymphocytes % 18.6 %; Mean Corpuscular HGB Conc 29.9 g/dL (31.6-35.5); Mean Corpuscular Hemoglobin 26.7 pg (28.0-33.3); Mean Corpuscular Volume 89.2 fL (83.0-100.0); Mean Platelet Volume 11.2 fL (9.4-12.4); Monocytes # 0.9 K/mcL (0.0-1.3); Monocytes % 8.8 %; Neutrophils # 6.7 K/mcL (1.6-8.9); Nucleated Red Blood Cells 0.4 /100 WBC (0); Platelet Count 158 K/mcL (140-400); Red Blood Count 3.15 M/mcL (3.82-4.97); Segmented Neutrophils % 67.7 %
[2016-10-11 03:38] LABS: Lymphocytes # 1.8 K/mcL (0.6-4.6)
[2016-10-11 03:41] LABS: Ionized Calcium 1.07 mmol/L (1.15-1.35)
[2016-10-11] MEDS: Lacri-Lube 3.5 GM TUBE BOTH EYES SCH ×6 (03:43→22:53)
[2016-10-11] MEDS: Dexmedetomidine HCl 400 MCG/100 ML MLS IVC SCH ×2 (03:45→19:51)
[2016-10-11 03:46] LABS: Magnesium 2.2 mg/dL (1.6-2.6)
[2016-10-11 04:01] LABS: Albumin 2.5 g/dL (3.5-5.0); Calcium 8.5 mg/dL (8.6-10.8); Phosphorous 4.6 mg/dL (2.3-4.7); Potassium 4.3 mEq/L (3.5-4.5)
[2016-10-11 04:08] LABS: Anisocytosis 1+ (Not Present); Platelet Estimate Normal (Normal)
[2016-10-11] MEDS: *HR* Enoxaparin 40 MG/0.4 ML SYRINGE SQ SCH (05:04)
--- NOTE | 2016-10-11 08:04 | Neurology Progress Note ---
<Doug Tabares - Last Filed: 10/11/16 08:19> Date of Encounter: 10/11/16 Time of Encounter: 08: Assessment and Plan (1) Non-convulsive status epilepticus Current Visit: Yes Status: Acute Antibiotic coverage has been switch to zosyn from ertapenem on 10/10. EEG on 10/08 demonstrated triphasic waves. Continue Fosphenytoin for seizure control. 10/10 MRI: no acute infarction. 10/10 CT head: no acute intracranial abnormality. (2) Altered mental status Current Visit: Yes Status: Acute Findings consistent with non-convulsive status epilepticus. Imagining negative for acute intracranial abnormalities. Qualifiers: Altered mental status type: stupor Qualified Code(s): R40.1 - Stupor Subjective Principal diagnosis: ARF, acute blood loss anemia Interval history: The patient was seen and examined. She remains obtunded and is unable to follow commands. Yesterday her ertapenem was discontinued and she was started on fosphenytoin for seizure control. There has been no interval change in her status since yesterday. Objective - Constitutional Vitals: Temp Pulse Resp BP Pulse Ox 97.6 F 70 14 84/52 95 10/11/16 03:00 10/11/16 06:00 10/11/16 06:05 10/11/16 06:05 10/11/16 06:05 Exam: The patient is obtunded and will move all four extremities spontaneously, but without any purposeful movement. She will open her eyes to stimulus, but does not make eye contact or track movement in the room. - Neurological Exam Sensorimotor examination: Present: other (withdraws to pain stimulus x 4 extremities) Motor Examination: Present: other (Moving all extremities spontaneously. No purposeful movements. Occasional head movements to the left and right) Sensation intact: Present: other (withdraws to pain x 4 ) Posture: Present: other (non-purposeful movements) Reflex and gait examination: other (Generalized hyper-reflexia) Mental Status Examination: Present: does not follow commands, stupor (obtunded) , opens eyes to voice, opens eyes to noxious stimulation, no spontaneous eye opening to voice or tactile stimulation (looks at the direction of the examiner , but does not follow commands) Cranial nerve examination: Present: PERRL (Hippus bilaterally), EOMI (unable to follow commands, but spontaenous eye movements to the left and right), corneal reflexes brisk symmetrically, sensory to face intact, no facial asymmetry is present Cerebellar examination: Present: no dysmetria (could not be tested) - VTE Documentation of Mechanical Device: Intermittent pneumatic compression device Results - Laboratory Findings CBC and BMP: 10/11/16 03:30 10/11/16 03:30 Abnormal lab findings: Abnormal lab results RBC 3.15 M/mcL (3.82-4.97) L 10/11/16 03:30 Hgb 8.4 g/dL (11.5-15.4) L 10/11/16 03:30 Hct 28.1 % (35.3-44.9) L 10/11/16 03:30 MCH 26.7 pg (28.0-33.3) L 10/11/16 03:30 MCHC 29.9 g/dL (31.6-35.5) L 10/11/16 03:30 RDW 19.0 % (11.5-14.5) H 10/11/16 03:30 Band Neutrophils % 6.0 % (0-4) H 10/09/16 03:00 Nucleated RBCs/100 WBC 0.4 /100 WBC (0) H 10/11/16 03:30 Reactive Lymphocytes Present (Not Present) A 10/09/16 03:00 Polychromasia 1+ (Not Present) A 10/08/16 02:53 Basophilic Stippling 1+ (Not Present) A 10/08/16 02:53 Anisocytosis 1+ (Not Present) A 10/11/16 03:30 Microcytosis Present (Not Present) A 10/10/16 03:30 Macrocytosis Present (Not Present) A 10/08/16 02:53 PT 16.8 Seconds (9.4-12.1) H 10/06/16 08:00 ABG pH 7.31 pH Units (7.32-7.45) L 10/05/16 18:30 ABG pCO2 48 mmHg (35-45) H 10/05/16 18:30 ABG pO2 71 mmHg (85-104) L 10/05/16 18:30 ABG O2 Saturation 92 % (95-98) L 10/05/16 18:30 ABG Base Excess -2.1 mEq/L (-2.0 to 3.0) L 10/05/16 18:30 Chloride 111 mEq/L (98-109) H 10/11/16 03:30 BUN 51 mg/dL (7-20) H 10/11/16 03:30 Creatinine 1.22 mg/dL (0.57-1.11) H D 10/11/16 03:30 Est GFR ( Amer) 53 (> 60) L 10/11/16 03:30 Est GFR (Non-Af Amer) 44 (> 60) L 10/11/16 03:30 BUN/Creatinine Ratio 42 (6-26) H 10/11/16 03:30 Glucose 169 mg/dL (70-99) H 10/11/16 03:30 POC Glucose 126 (58-89) H 10/11/16 07:40 Calculated Osmolality 316 (280-300) H 10/11/16 03:30 Uric Acid 10.1 mg/dL (2.6-6.0) H 09/30/16 04:37 Calcium 8.5 mg/dL (8.6-10.8) L 10/11/16 03:30 Ionized Calcium 1.07 mmol/L (1.15-1.35) L 10/11/16 03:30 Troponin I 0.06 ng/mL (0-0.03) H* 09/28/16 01:00 Albumin 2.5 g/dL (3.5-5.0) L 10/11/16 03:30 Albumin (PEP) 3.57 g/dL (3.75-5.01) L 09/30/16 04:37 Albumin/Globulin Ratio 1.0 (1.1-2.2) L 10/07/16 05:40 Urine Clarity Turbid (Clear) A 09/28/16 18:30 Ur Specific [place] > 1.030 (1.010-1.025) H 09/28/16 18:30 Urine Protein >=1000 mg/dL (Neg-Trace) H 09/28/16 18:30 Urine Glucose (UA) 100 mg/dL (Normal) H 09/28/16 18:30 Urine Ketones Trace mg/dL (Negative) H 09/28/16 18:30 Urine Bilirubin Small (Negative) H 09/28/16 18:30 Ur Leukocyte Esterase Moderate (Negative) H 09/28/16 18:30 Urine Microscopic WBC TNTC per hpf (0-3) H 09/28/16 18:30 Ur Squamous Epith Cells Many per lpf (None-Few) H 09/28/16 18:30 Amorphous Sediment Moderate (Few) H 09/28/16 18:30 Urine Bacteria Moderate per hpf (None-Few) H 09/28/16 18:30 Urine Yeast Few per hpf (None Seen) H 09/28/16 18:30 Ur Culture Indicated? YES (NO) A 09/28/16 18:30 Urine Total Protein 26 mg/dL (1-14) H 09/30/16 11:25 Stool Occult Blood Positive (Negative) A 09/27/16 13:48 Digoxin 2.4 ng/mL (0.8-2.0) H 09/28/16 06:46 Consult Discharge Plan - Plan Referrals: Ward Mcmanus MD [Primary Care Provider] - 10/08/16 2:00 pm () Eleni Edge CNP [Partnered Physician] - 10/12/16 8:45 am (in [place] office ) <Mathew Mejía - Last Filed: 10/11/16 15:30> Date of Encounter: 10/11/16 Time of Encounter: 15:22 Assessment and Plan (1) Toxic metabolic encephalopathy Current Visit: Yes Status: Acute My primary suspicion here is that we are dealing with toxic metabolic encephalopathy. Primary reasons could be due to the urinary tract infection, cannot rule out the possibility of anoxic brain injury secondary to respiratory failure. She has no rigidity at this time. Due to the length of her hospital stay unless convinced of a central nervous system etiology for this. Recent MRI does not reveal evidence of any focal or lateralized process. No temporal lobe enhancement is present, no evidence of acute infarct. However certainly in this scenario a lumbar puncture is justifiable to rule out any possible evidence of a central nervous system infectious process or inflammation. Further recommendations will be made pending the lumbar puncture. Not convinced at this point of nonconvulsive status epilepticus. We will DC fosphenytoin. Objective - Constitutional Vitals: Temp Pulse Resp BP Pulse Ox 97.6 F 60 21 125/58 100 10/11/16 11:32 10/11/16 15:00 10/11/16 15:00 10/11/16 15:00 10/11/16 15:00 - Neurological Exam Additional comments: The chart was reviewed, the patient was seen and examined. Cerebral functions-patient does open her eyes to voice as well as tactile stimulation. She does make eye contact, however she does not follow commands. Cranial nerves-pupils are equal and reactive to light, doll's eyes are intact. There is no facial asymmetry is identified however she is intubated. Motor exam-she is able to move all 4 extremities at will, however she does not follow any specific verbal commands. I see no involuntary movements identified. No posturing present. Bilateral Babinski's are present. No clonus is present. Results - Laboratory Findings CBC and BMP: 10/11/16 03:30 10/11/16 03:30 Abnormal lab findings: Abnormal lab results RBC 3.15 M/mcL (3.82-4.97) L 10/11/16 03:30 Hgb 8.4 g/dL (11.5-15.4) L 10/11/16 03:30 Hct 28.1 % (35.3-44.9) L 10/11/16 03:30 MCH 26.7 pg (28.0-33.3) L 10/11/16 03:30 MCHC 29.9 g/dL (31.6-35.5) L 10/11/16 03:30 RDW 19.0 % (11.5-14.5) H 10/11/16 03:30 Band Neutrophils % 6.0 % (0-4) H 10/09/16 03:00 Nucleated RBCs/100 WBC 0.4 /100 WBC (0) H 10/11/16 03:30 Reactive Lymphocytes Present (Not Present) A 10/09/16 03:00 Polychromasia 1+ (Not Present) A 10/08/16 02:53 Basophilic Stippling 1+ (Not Present) A 10/08/16 02:53 Anisocytosis 1+ (Not Present) A 10/11/16 03:30 Microcytosis Present (Not Present) A 10/10/16 03:30 Macrocytosis Present (Not Present) A 10/08/16 02:53 PT 16.8 Seconds (9.4-12.1) H 10/06/16 08:00 ABG pH 7.47 pH Units (7.32-7.45) H 10/11/16 08:15 ABG Total CO2 27.3 mEq/L (20-26) H 10/11/16 08:15 Chloride 111 mEq/L (98-109) H 10/11/16 03:30 BUN 51 mg/dL (7-20) H 10/11/16 03:30 Creatinine 1.22 mg/dL (0.57-1.11) H D 10/11/16 03:30 Est GFR ( Amer) 53 (> 60) L 10/11/16 03:30 Est GFR (Non-Af Amer) 44 (> 60) L 10/11/16 03:30 BUN/Creatinine Ratio 42 (6-26) H 10/11/16 03:30 Glucose 169 mg/dL (70-99) H 10/11/16 03:30 POC Glucose 150 (58-89) H 10/11/16 11:38 Calculated Osmolality 316 (280-300) H 10/11/16 03:30 Uric Acid 10.1 mg/dL (2.6-6.0) H 09/30/16 04:37 Calcium 8.5 mg/dL (8.6-10.8) L 10/11/16 03:30 Ionized Calcium 1.07 mmol/L (1.15-1.35) L 10/11/16 03:30 Troponin I 0.06 ng/mL (0-0.03) H* 09/28/16 01:00 Albumin 2.5 g/dL (3.5-5.0) L 10/11/16 03:30 Albumin (PEP) 3.57 g/dL (3.75-5.01) L 09/30/16 04:37 Albumin/Globulin Ratio 1.0 (1.1-2.2) L 10/07/16 05:40 Urine Clarity Turbid (Clear) A 09/28/16 18:30 Ur Specific [place] > 1.030 (1.010-1.025) H 09/28/16 18:30 Urine Protein >=1000 mg/dL (Neg-Trace) H 09/28/16 18:30 Urine Glucose (UA) 100 mg/dL (Normal) H 09/28/16 18:30 Urine Ketones Trace mg/dL (Negative) H 09/28/16 18:30 Urine Bilirubin Small (Negative) H 09/28/16 18:30 Ur Leukocyte Esterase Moderate (Negative) H 09/28/16 18:30 Urine Microscopic WBC TNTC per hpf (0-3) H 09/28/16 18:30 Ur Squamous Epith Cells Many per lpf (None-Few) H 09/28/16 18:30 Amorphous Sediment Moderate (Few) H 09/28/16 18:30 Urine Bacteria Moderate per hpf (None-Few) H 09/28/16 18:30 Urine Yeast Few per hpf (None Seen) H 09/28/16 18:30 Ur Culture Indicated? YES (NO) A 09/28/16 18:30 Urine Total Protein 26 mg/dL (1-14) H 09/30/16 11:25 Stool Occult Blood Positive (Negative) A 09/27/16 13:48 Digoxin 2.4 ng/mL (0.8-2.0) H 09/28/16 06:46
--- NOTE | 2016-10-11 08:24 | Pulmonology Progress Note ---
<Marcel Singer - Last Filed: 10/11/16 15:08> Date of Encounter: 10/11/16 Time of Encounter: 08:24 Assessment and Plan (1) Toxic metabolic encephalopathy Current Visit: Yes Status: Acute suspected multifactorial encephalopathy including medication such as antimicrobial effect of Ertapenem patient remains afebrile with normal WBC electrolytes are within normal limits continues to be mildly agitated but comfortable, Precedex discontinued Neurology consulted and appreciated - EEG 10/08/2016 shows no epileptiform activity and severe metabolic encephalopathy possibly due to hepatic or uremic encephalopathy - Ammonia level normal at 23 - antibiotic switched to Zosyn, currently day 2 of Zosyn (day 11 of antibiotics) - CT head and MR Brain 10/04 negative for acute infarction - consideration for non-convulsive status epilepticus - Fosphenytoin given and appear supratherapeutic with corrected level >20 - will continue to follow recommendations from neurology may consider LP if no other etiology for encephalopathy Infectious Disease Dr. Bryan has been consulted (2) Sepsis Current Visit: Yes Status: Acute resolved, no longer meets sepsis criteria patient remains afebrile with normal WBC 9.9 ESBL UTI, antibiotic regimen continued with Zosyn, day 2 of Zosyn (total day 11 of antibiotics switched from Ertapenem to Zosyn on 10/10) - Zosyn 10/01 --> Ertapenem 10/04 --> Zosyn 10/10 - urine culture sensitive to Zosyn preliminary blood culture 10/08 is positive for GNR possible contaminate, awaiting final report - serology PCR negative - Strep and Legionnaire urine antigen pending repeat blood cultures 10/10 pending sputum culture negative, Vancomycin has been discontinued Qualifiers: Sepsis type: sepsis due to unspecified organism Qualified Code(s): A41.9 - Sepsis, unspecified organism (3) UTI due to extended-spectrum beta lactamase (ESBL) producing Escherichia coli Current Visit: Yes Status: Acute sensitive to Zosyn currently day 2 of Zosyn, day 11 of antibiotic (4) Chronic kidney disease Current Visit: No Status: Chronic acute on chronic renal failure CKD stage 3 Cr increased 1.22 from 0.80 possibly due to overdiuresis with Lasix or Vancomycin given for empiric MRSA coverage will hold Lasix and continue to monitor Cr UOP appropriate 225 over last 4 hours, will continue to monitor continue to hold nephrotoxic medications and renal adjust dosages Qualifiers: Chronic kidney disease stage: stage 3 (moderate) Qualified Code(s): N18.3 - Chronic kidney disease, stage 3 (moderate) (5) Atrial fibrillation and flutter Current Visit: Yes Status: Chronic paroxysmal atrial fibrillation, currently normal sinus rhythm HR 73 cardiology was re-consulted - recommend to uptitrate as appropriate - Lopressor 50 mg BID (6) Acute respiratory failure with hypoxia Current Visit: Yes Status: Acute currently intubated since 10/03 for acute respiratory failure with hypervolemia and encephalopathy doing well on pressure support ABG 7.47/36/94/26.2/+2.5 will work on weaning off ventilator and bridge to BiPAP repeat CXR 10/11 shows some redemonstration of right lung consolidation but she continues to remain afebrile, normal WBC and negative sputum culture Protonix for GI prophylaxis Enteral nutrition (7) Diabetes mellitus type 2, noninsulin dependent Current Visit: No Status: Chronic blood glucose remains well controlled 140-170s on ISS currently on enteral nutrition (8) Chronic blood loss anemia Current Visit: No Status: Acute hemoglobin remains stable 8.4 (7.5) during hospitalization since 09/27/16, received 3 units pRBCs on 09/27 no obvious signs of active bleeding (9) Hypokalemia Current Visit: Yes Status: Resolved resolved 4.3 after repletion (10) Hypomagnesemia Current Visit: No Status: Resolved resolved, 2.2 after repletion (11) Thrombus of left atrial appendage Current Visit: Yes Status: 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 She appears slightly agitated in bed but is being controlled with Precedex. Opens eyes to voice and follows simple commands. Moves all 4 extremities without focal neuro deficit. She remains afebrile with stable blood pressures and HR 73 normal sinus. Objective PUL Vital signs: Last Vital Signs Temp 97.6 F 10/11/16 03:00 Pulse 73 10/11/16 08:10 Resp 11 10/11/16 08:04 BP 126/68 10/11/16 08:04 Pulse Ox 98 10/11/16 08:04 General appearance: agitated (slightly), other (examination limited due to AMS, obtunded, moves all 4 extremities spontaneously but without purpose) Eyes: nonicteric, other (PERRL, she does not follow commands but EOM appear intact in cardinal directions, no nystagmus or deviation) ENT: other (ETT intubation with OG tube, gag reflex intact) Effort: normal Auscultation: bilateral: diminished breath sounds Cardiovascular: regular rate and rhythm Gastrointestinal: normoactive bowel sounds, soft, non-tender, other (old surgical midline incision, infraumbilical) Integumentary: normal, other (skin care per ICU protocol) Extremities: no cyanosis, edema (mild, +1 pitting symmetrical bilaterally) Musculoskeletal: no deformities non-focal exam (moves all 4 extremities without purposeful movement, no facial droop, gag reflex intact,), pupils equal and round, unable to assess due to mental status Ventilator Settings Ventilator Settings: Ventilator Settings, Last 8 Hours Ventilator Mode CPAP Ventilator Mode CPAP Ventilator Mode CPAP Ventilator Mode CPAP Ventilator Mode A/C Ventilator Mode A/C Ventilator Mode A/C Ventilator Mode A/C Ventilator Mode A/C Ventilator Mode A/C Ventilator Mode A/C Ventilator Tidal Volume 420 Setting Ventilator Tidal Volume 418 Setting Ventilator Tidal Volume 420 Setting Ventilator Tidal Volume 420 Setting Ventilator Tidal Volume 420 Setting Ventilator Tidal Volume 420 Setting Ventilator Tidal Volume 420 Setting Ventilator Tidal Volume 420 Setting Ventilator Tidal Volume 420 Setting Ventilator Respiratory Rate 16 Setting Ventilator Respiratory Rate 16 Setting Ventilator Respiratory Rate 16 Setting Ventilator Respiratory Rate 16 Setting Ventilator Respiratory Rate 16 Setting Ventilator Respiratory Rate 16 Setting Ventilator Respiratory Rate 16 Setting Ventilator Respiratory Rate 16 Setting Ventilator Respiratory Rate 16 Setting Actual Respiratory Rate 14 Actual Respiratory Rate 16 Actual Respiratory Rate 14 Actual Respiratory Rate 14 Actual Respiratory Rate 19 Actual Respiratory Rate 20 Actual Respiratory Rate 17 Actual Respiratory Rate 20 Actual Respiratory Rate 25 Actual Respiratory Rate 25 Actual Respiratory Rate 23 Positive End Expiratory 5 Pressure Positive End Expiratory 5 Pressure Positive End Expiratory 5 Pressure Positive End Expiratory 5 Pressure Positive End Expiratory 5 Pressure Positive End Expiratory 5 Pressure Positive End Expiratory 5 Pressure Positive End Expiratory 5 Pressure Positive End Expiratory 5 Pressure Positive End Expiratory 5 Pressure Positive End Expiratory 5 Pressure Peak Inspiratory Airway 16 Pressure Peak Inspiratory Airway 16 Pressure Peak Inspiratory Airway 16 Pressure Peak Inspiratory Airway 17 Pressure Peak Inspiratory Airway 17 Pressure Peak Inspiratory Airway 17 Pressure Peak Inspiratory Airway 19 Pressure Peak Inspiratory Airway 15 Pressure Peak Inspiratory Airway 15 Pressure Peak Inspiratory Airway 15 Pressure Peak Inspiratory Airway 17 Pressure Results - Laboratory Findings CBC and BMP: 10/11/16 03:30 10/11/16 03:30 ABG ABG pH 7.31 pH Units (7.32-7.45) L 10/05/16 18:30 ABG pCO2 48 mmHg (35-45) H 10/05/16 18:30 ABG pO2 71 mmHg (85-104) L 10/05/16 18:30 ABG O2 Saturation 92 % (95-98) L 10/05/16 18:30 PT/INR, D-dimer PT 16.8 Seconds (9.4-12.1) H 10/06/16 08:00 Abnormal lab findings: Abnormal lab results RBC 3.15 M/mcL (3.82-4.97) L 10/11/16 03:30 Hgb 8.4 g/dL (11.5-15.4) L 10/11/16 03:30 Hct 28.1 % (35.3-44.9) L 10/11/16 03:30 MCH 26.7 pg (28.0-33.3) L 10/11/16 03:30 MCHC 29.9 g/dL (31.6-35.5) L 10/11/16 03:30 RDW 19.0 % (11.5-14.5) H 10/11/16 03:30 Band Neutrophils % 6.0 % (0-4) H 10/09/16 03:00 Nucleated RBCs/100 WBC 0.4 /100 WBC (0) H 10/11/16 03:30 Reactive Lymphocytes Present (Not Present) A 10/09/16 03:00 Polychromasia 1+ (Not Present) A 10/08/16 02:53 Basophilic Stippling 1+ (Not Present) A 10/08/16 02:53 Anisocytosis 1+ (Not Present) A 10/11/16 03:30 Microcytosis Present (Not Present) A 10/10/16 03:30 Macrocytosis Present (Not Present) A 10/08/16 02:53 PT 16.8 Seconds (9.4-12.1) H 10/06/16 08:00 ABG pH 7.31 pH Units (7.32-7.45) L 10/05/16 18:30 ABG pCO2 48 mmHg (35-45) H 10/05/16 18:30 ABG pO2 71 mmHg (85-104) L 10/05/16 18:30 ABG O2 Saturation 92 % (95-98) L 10/05/16 18:30 ABG Base Excess -2.1 mEq/L (-2.0 to 3.0) L 10/05/16 18:30 Chloride 111 mEq/L (98-109) H 10/11/16 03:30 BUN 51 mg/dL (7-20) H 10/11/16 03:30 Creatinine 1.22 mg/dL (0.57-1.11) H D 10/11/16 03:30 Est GFR ( Amer) 53 (> 60) L 10/11/16 03:30 Est GFR (Non-Af Amer) 44 (> 60) L 10/11/16 03:30 BUN/Creatinine Ratio 42 (6-26) H 10/11/16 03:30 Glucose 169 mg/dL (70-99) H 10/11/16 03:30 POC Glucose 126 (58-89) H 10/11/16 07:40 Calculated Osmolality 316 (280-300) H 10/11/16 03:30 Uric Acid 10.1 mg/dL (2.6-6.0) H 09/30/16 04:37 Calcium 8.5 mg/dL (8.6-10.8) L 10/11/16 03:30 Ionized Calcium 1.07 mmol/L (1.15-1.35) L 10/11/16 03:30 Troponin I 0.06 ng/mL (0-0.03) H* 09/28/16 01:00 Albumin 2.5 g/dL (3.5-5.0) L 10/11/16 03:30 Albumin (PEP) 3.57 g/dL (3.75-5.01) L 09/30/16 04:37 Albumin/Globulin Ratio 1.0 (1.1-2.2) L 10/07/16 05:40 Urine Clarity Turbid (Clear) A 09/28/16 18:30 Ur Specific [place] > 1.030 (1.010-1.025) H 09/28/16 18:30 Urine Protein >=1000 mg/dL (Neg-Trace) H 09/28/16 18:30 Urine Glucose (UA) 100 mg/dL (Normal) H 09/28/16 18:30 Urine Ketones Trace mg/dL (Negative) H 09/28/16 18:30 Urine Bilirubin Small (Negative) H 09/28/16 18:30 Ur Leukocyte Esterase Moderate (Negative) H 09/28/16 18:30 Urine Microscopic WBC TNTC per hpf (0-3) H 09/28/16 18:30 Ur Squamous Epith Cells Many per lpf (None-Few) H 09/28/16 18:30 Amorphous Sediment Moderate (Few) H 09/28/16 18:30 Urine Bacteria Moderate per hpf (None-Few) H 09/28/16 18:30 Urine Yeast Few per hpf (None Seen) H 09/28/16 18:30 Ur Culture Indicated? YES (NO) A 09/28/16 18:30 Urine Total Protein 26 mg/dL (1-14) H 09/30/16 11:25 Stool Occult Blood Positive (Negative) A 09/27/16 13:48 Digoxin 2.4 ng/mL (0.8-2.0) H 09/28/16 06:46 - Microbiology Findings Microbiology Findings: Microbiology, Last 48 Hours 10/08/16 01:41 Blood Culture - Preliminary Peripheral Venipuncture Gram Negative Matty 10/08/16 01:20 Sputum Culture - Final Sputum 10/08/16 01:20 Urine Culture - Final Urine,Catheterized No growth. - Diagnostic Findings Chest x-ray: report reviewed - Clinical Findings Intake & Output: Intake & Output 10/10/16 10/11/16 10/11/16 23:59 07:59 15:59 Intake Total 1872 / 1872 856 / 856 200 / 200 Output Total 550 / 550 75 / 75 Balance 1322 / 1322 781 / 781 200 / 200 Weight 105.9 kg - VTE Documentation of Mechanical Device: Intermittent pneumatic compression device Consult Discharge Plan - Plan Referrals: Ward Mcmanus MD [Primary Care Provider] - 10/08/16 2:00 pm () Eleni Edge CNP [Partnered Physician] - 10/12/16 8:45 am (in [place] office ) <Elicia Milligan M - Last Filed: 10/11/16 15:52> Date of Encounter: 10/11/16 Objective PUL Vital signs: Last Vital Signs Temp 97.6 F 10/11/16 11:32 Pulse 60 10/11/16 15:00 Resp 21 10/11/16 15:20 BP 125/58 10/11/16 15:20 Pulse Ox 100 10/11/16 15:20 Ventilator Settings Ventilator Settings: Ventilator Settings, Last 8 Hours Ventilator Mode A/C Ventilator Mode A/C Ventilator Mode CPAP Ventilator Mode CPAP Ventilator Mode CPAP Ventilator Mode CPAP Ventilator Mode CPAP Ventilator Mode CPAP Ventilator Mode CPAP Ventilator Tidal Volume 420 Setting Ventilator Tidal Volume 420 Setting Ventilator Tidal Volume 420 Setting Ventilator Tidal Volume 418 Setting Ventilator Respiratory Rate 16 Setting Ventilator Respiratory Rate 16 Setting Ventilator Respiratory Rate 16 Setting Ventilator Respiratory Rate 16 Setting Actual Respiratory Rate 19 Actual Respiratory Rate 27 Actual Respiratory Rate 14 Actual Respiratory Rate 16 Positive End Expiratory 5 Pressure Positive End Expiratory 5 Pressure Positive End Expiratory 5 Pressure Positive End Expiratory 5 Pressure Positive End Expiratory 5 Pressure Peak Inspiratory Airway 12 Pressure Peak Inspiratory Airway 14 Pressure Peak Inspiratory Airway 16 Pressure Peak Inspiratory Airway 16 Pressure Results - Laboratory Findings CBC and BMP: 10/11/16 03:30 10/11/16 03:30 ABG ABG pH 7.47 pH Units (7.32-7.45) H 10/11/16 08:15 ABG pCO2 36 mmHg (35-45) 10/11/16 08:15 ABG pO2 94 mmHg (85-104) 10/11/16 08:15 ABG O2 Saturation 98 % (95-98) 10/11/16 08:15 PT/INR, D-dimer PT 16.8 Seconds (9.4-12.1) H 10/06/16 08:00 Abnormal lab findings: Abnormal lab results RBC 3.15 M/mcL (3.82-4.97) L 10/11/16 03:30 Hgb 8.4 g/dL (11.5-15.4) L 10/11/16 03:30 Hct 28.1 % (35.3-44.9) L 10/11/16 03:30 MCH 26.7 pg (28.0-33.3) L 10/11/16 03:30 MCHC 29.9 g/dL (31.6-35.5) L 10/11/16 03:30 RDW 19.0 % (11.5-14.5) H 10/11/16 03:30 Band Neutrophils % 6.0 % (0-4) H 10/09/16 03:00 Nucleated RBCs/100 WBC 0.4 /100 WBC (0) H 10/11/16 03:30 Reactive Lymphocytes Present (Not Present) A 10/09/16 03:00 Polychromasia 1+ (Not Present) A 10/08/16 02:53 Basophilic Stippling 1+ (Not Present) A 10/08/16 02:53 Anisocytosis 1+ (Not Present) A 10/11/16 03:30 Microcytosis Present (Not Present) A 10/10/16 03:30 Macrocytosis Present (Not Present) A 10/08/16 02:53 PT 16.8 Seconds (9.4-12.1) H 10/06/16 08:00 ABG pH 7.47 pH Units (7.32-7.45) H 10/11/16 08:15 ABG Total CO2 27.3 mEq/L (20-26) H 10/11/16 08:15 Chloride 111 mEq/L (98-109) H 10/11/16 03:30 BUN 51 mg/dL (7-20) H 10/11/16 03:30 Creatinine 1.22 mg/dL (0.57-1.11) H D 10/11/16 03:30 Est GFR ( Amer) 53 (> 60) L 10/11/16 03:30 Est GFR (Non-Af Amer) 44 (> 60) L 10/11/16 03:30 BUN/Creatinine Ratio 42 (6-26) H 10/11/16 03:30 Glucose 169 mg/dL (70-99) H 10/11/16 03:30 POC Glucose 150 (58-89) H 10/11/16 11:38 Calculated Osmolality 316 (280-300) H 10/11/16 03:30 Uric Acid 10.1 mg/dL (2.6-6.0) H 09/30/16 04:37 Calcium 8.5 mg/dL (8.6-10.8) L 10/11/16 03:30 Ionized Calcium 1.07 mmol/L (1.15-1.35) L 10/11/16 03:30 Troponin I 0.06 ng/mL (0-0.03) H* 09/28/16 01:00 Albumin 2.5 g/dL (3.5-5.0) L 10/11/16 03:30 Albumin (PEP) 3.57 g/dL (3.75-5.01) L 09/30/16 04:37 Albumin/Globulin Ratio 1.0 (1.1-2.2) L 10/07/16 05:40 Urine Clarity Turbid (Clear) A 09/28/16 18:30 Ur Specific [place] > 1.030 (1.010-1.025) H 09/28/16 18:30 Urine Protein >=1000 mg/dL (Neg-Trace) H 09/28/16 18:30 Urine Glucose (UA) 100 mg/dL (Normal) H 09/28/16 18:30 Urine Ketones Trace mg/dL (Negative) H 09/28/16 18:30 Urine Bilirubin Small (Negative) H 09/28/16 18:30 Ur Leukocyte Esterase Moderate (Negative) H 09/28/16 18:30 Urine Microscopic WBC TNTC per hpf (0-3) H 09/28/16 18:30 Ur Squamous Epith Cells Many per lpf (None-Few) H 09/28/16 18:30 Amorphous Sediment Moderate (Few) H 09/28/16 18:30 Urine Bacteria Moderate per hpf (None-Few) H 09/28/16 18:30 Urine Yeast Few per hpf (None Seen) H 09/28/16 18:30 Ur Culture Indicated? YES (NO) A 09/28/16 18:30 Urine Total Protein 26 mg/dL (1-14) H 09/30/16 11:25 Stool Occult Blood Positive (Negative) A 09/27/16 13:48 Digoxin 2.4 ng/mL (0.8-2.0) H 09/28/16 06:46 - Microbiology Findings Microbiology Findings: Microbiology, Last 48 Hours 10/08/16 01:41 Blood Culture - Preliminary Peripheral Venipuncture Gram Negative Matty 10/08/16 01:20 Sputum Culture - Final Sputum - Clinical Findings Intake & Output: Intake & Output 10/10/16 10/11/16 10/11/16 23:59 07:59 15:59 Intake Total 1872 / 1872 856 / 856 514 / 514 Output Total 550 / 550 75 / 75 325 / 325 Balance 1322 / 1322 781 / 781 189 / 189 Weight 105.9 kg - Attending Attestation I examined this patient and my medical decision-making was reviewed with the TAILER IN/PA/Advanced Practice Nurse/Resident Physician. I agree with the documented findings, disposition and treatment plan as described except to the extent set forth below. Patient seen and examined. Labs, radiology, chart personally reviewed. Agree with resident's history and physical, assessment, plan with following comments: [employer]: Patient doesn't follows commands, Neurology is following up and will ask about LP. Pulmonary: Acceptable oxygenation and ventilation. She is tolerating SBT, however she had apnea and she was changed back to full vent support. The main concern is mental status and when that is treated will consider extubation. Cardiovascular: stable GI: Nutrition per dietary and GI prophylaxis per routine Heme: DVT prophylaxis per routine ID: Continue antibiotics and plan to de-escalation. ID consultation for assistance on antibiotics management and opinion about LP. Renal; urine out put and renal funtion reviewed Endorcine: blood glucose is monitored Lines: all lines checked and no evidence of infections Skin: skin care to prevent pressure ulcers per nursing routine care
[2016-10-11 08:27] LABS: ABG Base Excess 2.5 mEq/L (-2.0 to 3.0); ABG HCO3 26.2 mEQ/L (21-27); ABG Oxygen Saturation 98 % (95-98); ABG PCO2 36 mmHg (35-45); ABG PH 7.47 pH Units (7.32-7.45); ABG PO2 94 mmHg (85-104); ABG TCO2 27.3 mEq/L (20-26)
[2016-10-11 08:42] LABS: Blood Gas FiO2 30 %
[2016-10-11] MEDS: Insulin LISPRO 300 UNITS/3 ML VIAL SQ SCH ×4 (09:33→19:43)
[2016-10-11] MEDS: hydrALAZINE 25 MG TABLET PO SCH ×3 (09:33→23:14)
[2016-10-11] MEDS: Aspirin 81 MG TAB.CHEW PO SCH (09:34)
[2016-10-11] MEDS: Docusate Oral Soln 100 MG/10 ML UDC GTUBE SCH (09:34)
[2016-10-11] MEDS: Cholecalciferol (D-3) 1,000 UNIT TABLET PO SCH (09:34)
[2016-10-11] MEDS: Chlorhexidine Rinse 15 ML MOUTHWASH MM SCH ×2 (09:34→19:41)
[2016-10-11] MEDS: Ferrous Sulfate Oral Soln 300 MG/5 ML UDC PO SCH ×2 (09:34→17:18)
[2016-10-11] MEDS: Nystatin SUSP 5 ML UD.LIQ PO SCH ×4 (09:34→19:42)
[2016-10-11] MEDS: Bisacodyl 10 MG RECTAL SUPPOSITORY RC SCH (09:34)
[2016-10-11] MEDS: Piperacillin/Tazobactam 3.375 GM in D5% in Water (Mini-Bag+) 100 ML IVPB SCH ×3 (09:35→23:13)
[2016-10-11] MEDS: Furosemide 20 MG/2 ML VIAL IVP SCH (09:35)
[2016-10-11] MEDS: Pantoprazole 40 MG VIAL IVP SCH (09:35)
[2016-10-11] MEDS: FentaNYL (PF) 1,000 MCG in 0.9 % Sodium Chloride 80 ML IVC SCH ×3 (10:04→22:53)
--- NOTE | 2016-10-11 16:11 | Event Note ---
<Marcel Singer - Last Filed: 10/11/16 16:00> Date of Encounter: 10/11/16 Time of Encounter: 16:00 Procedure Note: Lumbar Puncture Date: 10/11/2016 Time: 1601 Indication: Altered Mental Status Resident: Dr. Marcel Singer, PGY-I Attending: Dr. Mathew Mejía, Neurologist Spoke with patient's daughter, Almaz and verbal consent was obtained. A time- out was completed verifying correct patient, procedure, site, positioning, and special equipment if applicable. The patient was placed in the upright position with help from the nursing staff. The area was cleansed and draped in usual sterile fashion. 1% lidocaine was used anesthetize the surrounding skin area. A 20-gauge 3.5-inch spinal needle was placed in the L3-L4 interspace. After 1 spinal needle insertion and slow advancement of needle, bone was encountered and after 3 attempts to reposition needle cephalad, lumbar puncture was unsuccessful. Unable to maintain patient in adequate positioning. Spinal needle was removed with stylet in place. Minimal bleeding with good hemostasis with direct pressure. Bandage was placed. Dr. Mathew Mejía was present for the entire procedure. Estimated Blood Loss: minimal The patient tolerated the procedure well and there were no complications. <Mathew Mejía - Last Filed: 10/11/16 16:24> Date of Encounter: 10/11/[address] Singer's note as written above.
[2016-10-11] MEDS: Melatonin 3 MG TABLET PO SCH (19:42)
[2016-10-12] MEDS ORDERED: *HR* LORazepam 2 MG/ML VIAL IVP PRN ×2 (01:19→18:04)
[2016-10-12] MEDS ORDERED: *HR* Midazolam HCl 2 MG/2 ML VIAL IVP ONE (01:22)
[2016-10-12] MEDS: Dexmedetomidine HCl 400 MCG/100 ML MLS IVC SCH ×2 (01:39→20:58)
[2016-10-12 04:20] LABS: Hematocrit 26.1 % (35.3-44.9); Hemoglobin 7.9 g/dL (11.5-15.4); Mean Corpuscular HGB Conc 30.3 g/dL (31.6-35.5); Mean Corpuscular Hemoglobin 26.9 pg (28.0-33.3); Mean Corpuscular Volume 88.8 fL (83.0-100.0); Mean Platelet Volume 10.9 fL (9.4-12.4); Platelet Count 139 K/mcL (140-400); Red Blood Count 2.94 M/mcL (3.82-4.97); Red Cell Distribution Width 18.8 % (11.5-14.5)
[2016-10-12 04:24] LABS: INR 1.5; Prothrombin Time 15.8 Seconds (9.4-12.1)
[2016-10-12 04:36] LABS: Ionized Calcium 1.14 mmol/L (1.15-1.35)
[2016-10-12] MEDS: Lacri-Lube 3.5 GM TUBE BOTH EYES SCH ×6 (04:44→23:34)
[2016-10-12 04:46] LABS: Calcium 8.6 mg/dL (8.6-10.8); Magnesium 1.8 mg/dL (1.6-2.6); Phosphorous 4.5 mg/dL (2.3-4.7); Potassium 3.8 mEq/L (3.5-4.5)
[2016-10-12 04:52] LABS: Basophils # 0.2 K/mcL (0.0-0.2); Eosinophils # 0.3 K/mcL (0.0-0.6); Lymphocytes # 1.9 K/mcL (0.6-4.6); Monocytes # 0.6 K/mcL (0.0-1.3); Neutrophils # 4.4 K/mcL (1.6-8.9); Platelet Estimate Normal (Normal); Reactive Lymphocytes Present (Not Present)
[2016-10-12] MEDS: *HR* Enoxaparin 40 MG/0.4 ML SYRINGE SQ SCH (05:28)
[2016-10-12] MEDS: Magnesium Sulfate 2 GM in D5% in Water 100 ML IVPB PRN (05:35)
--- NOTE | 2016-10-12 06:54 | Neurology Progress Note ---
Date of Encounter: 10/12/16 Time of Encounter: 06:51 Assessment and Plan (1) Toxic metabolic encephalopathy Current Visit: Yes Status: Acute At this point I remain convinced that we are dealing with some underlying toxic metabolic factor that is affecting her level of consciousness. However since she is somewhat improved today, it is not likely that we are dealing with any type of viral encephalitis. She has no nuchal rigidity and therefore bacterial meningitis is not likely either. She is not febrile. In lieu of her respiratory failure and concerned about the possibility of of hypoxic/anoxic brain injury. However further opinions on this matter will be made once she is extubated. We will follow. Subjective Principal diagnosis: metabolic encephalopathy, ARF, acute blood loss anemia Interval history: Chart was reviewed, pt was seen and examined. Responsiveness is improved this am. She does make eye contact, however not following commands for me. Apparently no new developments overnight. Pt. afebrile. No evidence of focal deficits. No nuchal rigidity. Case discussed with Dr. Fitzgerald. Plans to extubate pt this am. Will get a better feel for mental status after pt. is extubated. Objective - Constitutional Vitals: Temp Pulse Resp BP Pulse Ox 98.0 F 79 19 187/91 97 10/12/16 03:00 10/12/16 05:58 10/12/16 05:58 10/12/16 05:58 10/12/16 05:58 General appearance: Present: cooperative, A&O X 3, no acute distress, answers questions appropriately - Neurological Exam Sensorimotor examination: Present: other (withdraws to pain stimulus x 4 extremities) Motor Examination: Present: other (Moving all extremities spontaneously. No purposeful movements. Occasional head movements to the left and right) Sensation intact: Present: other (withdraws to pain x 4 ) Posture: Present: other (non-purposeful movements) Reflex and gait examination: other (Generalized hyper-reflexia) Mental Status Examination: Present: does not follow commands, stupor (obtunded) , opens eyes to voice, opens eyes to noxious stimulation, no spontaneous eye opening to voice or tactile stimulation (looks at the direction of the examiner , but does not follow commands) Cranial nerve examination: Present: PERRL (Hippus bilaterally), EOMI (unable to follow commands, but spontaenous eye movements to the left and right), corneal reflexes brisk symmetrically, sensory to face intact, no facial asymmetry is present Cerebellar examination: Present: no dysmetria (could not be tested) Additional comments: Mental status exam finds that patient remains lethargic. She does make eye contact, she does track. She is not following commands for me at this time. She does withdrawal purposefully to noxious stimuli. Pupils are equal and reactive to light. Doll's eyes are intact, blink reflexes are intact. Motor exam finds no involuntary movements, she does withdrawal to noxious stim. Bilateral Babinski's are present. - VTE Documentation of Mechanical Device: Intermittent pneumatic compression device Results - Laboratory Findings CBC and BMP: 10/12/16 04:00 10/12/16 04:00 Abnormal lab findings: Abnormal lab results RBC 2.94 M/mcL (3.82-4.97) L 10/12/16 04:00 Hgb 7.9 g/dL (11.5-15.4) L 10/12/16 04:00 Hct 26.1 % (35.3-44.9) L 10/12/16 04:00 MCH 26.9 pg (28.0-33.3) L 10/12/16 04:00 MCHC 30.3 g/dL (31.6-35.5) L 10/12/16 04:00 RDW 18.8 % (11.5-14.5) H 10/12/16 04:00 Plt Count 139 K/mcL (140-400) L 10/12/16 04:00 Band Neutrophils % 6.0 % (0-4) H 10/12/16 04:00 Nucleated RBCs/100 WBC 0.4 /100 WBC (0) H 10/11/16 03:30 Reactive Lymphocytes Present (Not Present) A 10/12/16 04:00 Polychromasia 1+ (Not Present) A 10/08/16 02:53 Basophilic Stippling 1+ (Not Present) A 10/08/16 02:53 Anisocytosis 1+ (Not Present) A 10/11/16 03:30 Microcytosis Present (Not Present) A 10/10/16 03:30 Macrocytosis Present (Not Present) A 10/08/16 02:53 PT 15.8 Seconds (9.4-12.1) H 10/12/16 04:00 ABG pH 7.47 pH Units (7.32-7.45) H 10/11/16 08:15 ABG Total CO2 27.3 mEq/L (20-26) H 10/11/16 08:15 Chloride 111 mEq/L (98-109) H 10/12/16 04:00 BUN 50 mg/dL (7-20) H 10/12/16 04:00 Creatinine 1.15 mg/dL (0.57-1.11) H 10/12/16 04:00 Est GFR ( Amer) 57 (> 60) L 10/12/16 04:00 Est GFR (Non-Af Amer) 47 (> 60) L 10/12/16 04:00 BUN/Creatinine Ratio 43 (6-26) H 10/12/16 04:00 Glucose 175 mg/dL (70-99) H 10/12/16 04:00 POC Glucose 141 (58-89) H 10/11/16 19:22 Calculated Osmolality 318 (280-300) H 10/12/16 04:00 Uric Acid 10.1 mg/dL (2.6-6.0) H 09/30/16 04:37 Ionized Calcium 1.14 mmol/L (1.15-1.35) L 10/12/16 04:00 Troponin I 0.06 ng/mL (0-0.03) H* 09/28/16 01:00 Albumin 2.5 g/dL (3.5-5.0) L 10/11/16 03:30 Albumin (PEP) 3.57 g/dL (3.75-5.01) L 09/30/16 04:37 Albumin/Globulin Ratio 1.0 (1.1-2.2) L 10/07/16 05:40 Urine Clarity Turbid (Clear) A 09/28/16 18:30 Ur Specific [place] > 1.030 (1.010-1.025) H 09/28/16 18:30 Urine Protein >=1000 mg/dL (Neg-Trace) H 09/28/16 18:30 Urine Glucose (UA) 100 mg/dL (Normal) H 09/28/16 18:30 Urine Ketones Trace mg/dL (Negative) H 09/28/16 18:30 Urine Bilirubin Small (Negative) H 09/28/16 18:30 Ur Leukocyte Esterase Moderate (Negative) H 09/28/16 18:30 Urine Microscopic WBC TNTC per hpf (0-3) H 09/28/16 18:30 Ur Squamous Epith Cells Many per lpf (None-Few) H 09/28/16 18:30 Amorphous Sediment Moderate (Few) H 09/28/16 18:30 Urine Bacteria Moderate per hpf (None-Few) H 09/28/16 18:30 Urine Yeast Few per hpf (None Seen) H 09/28/16 18:30 Ur Culture Indicated? YES (NO) A 09/28/16 18:30 Urine Total Protein 26 mg/dL (1-14) H 09/30/16 11:25 Stool Occult Blood Positive (Negative) A 09/27/16 13:48 Digoxin 2.4 ng/mL (0.8-2.0) H 09/28/16 06:46 Consult Discharge Plan - Plan Referrals: Ward Mcmanus MD [Primary Care Provider] - 10/08/16 2:00 pm () Eleni Edge CNP [Partnered Physician] - 10/12/16 8:45 am (in [place] office )
[2016-10-12] MEDS: Insulin LISPRO 300 UNITS/3 ML VIAL SQ SCH ×4 (07:38→20:32)
[2016-10-12] MEDS: Pantoprazole 40 MG VIAL IVP SCH (08:57)
[2016-10-12] MEDS: Chlorhexidine Rinse 15 ML MOUTHWASH MM SCH ×2 (08:57→20:30)
[2016-10-12] MEDS: Piperacillin/Tazobactam 3.375 GM in D5% in Water (Mini-Bag+) 100 ML IVPB SCH ×3 (08:57→23:33)
[2016-10-12] MEDS: Ferrous Sulfate Oral Soln 300 MG/5 ML UDC PO SCH ×2 (09:09→16:32)
[2016-10-12] MEDS: hydrALAZINE 25 MG TABLET PO SCH ×3 (09:09→23:34)
[2016-10-12] MEDS: Aspirin 81 MG TAB.CHEW PO SCH (09:10)
[2016-10-12] MEDS: Cholecalciferol (D-3) 1,000 UNIT TABLET PO SCH (09:11)
--- NOTE | 2016-10-12 09:27 | Pulmonology Progress Note ---
<Martir Hammond - Last Filed: 10/12/16 11:18> Date of Encounter: 10/12/16 Time of Encounter: 09:24 Assessment and Plan (1) Respiratory failure Current Visit: Yes Status: Acute Secondary to mentation. Extubated 10/12/16 She has bilateral rhonchi. Likely from secretions. I reviewed the CXR from 10/11/16. No obvious pneumonia. No fever and no leukocytosis. Continue to observe her closely. Duonebs. (2) Metabolic encephalopathy Current Visit: Yes Status: Acute improving some. etiology is still unclear. Likely multifactorial. Possibly lingering effects of sedation given her renal failure previously. Avoid sedating medicaitons as much as possible. try and obtain normal sleep wake cycle. Continue to orientate the patient. appreciate Neurologies input. (3) Bacteremia Current Visit: Yes Status: Acute Blood cultures from 10/08/16 have grown GNR. non fermenters. Repeat cultures from 10/10/16 show NGTD. Possible contamination. Versus Anaerobic organism. Very poor oral hygiene. However no abscess noted. History of ESBL UTI. Likely not ESBL Ecoli given PCR results. Awaiting speciation of organism. May consider holding antibiotics if Ok with ID. Currently she dose not meet sepsis criteria. afebrile WBC trending down. (4) History of ESBL E. coli infection Current Visit: Yes Status: Acute (5) Left atrial thrombus Current Visit: Yes Status: Acute holding AC due to recent major GI bleed. Will need to discuss with cardiology about when and if we should resume anticoagulation. Currently rate controlled/ sinus rhythm. (6) FRAN (acute kidney injury) Current Visit: Yes Status: Acute improving. continue to hold diuresis. (7) Obesity Current Visit: Yes Status: Acute weight loss (8) History of GI bleed Current Visit: Yes Status: Acute as stated above. (9) Diabetes Current Visit: Yes Status: Acute continue sliding scale insulin. currently at goal. May need to increase if we are able to start her on a diet. 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 Possibly from ET tube. Will need outpatient ENT consult. (12) Edema Current Visit: Yes Status: Acute improving. (13) Anemia Current Visit: Yes Status: Acute Multifactorial Recent GI bleed Iron deficiency Folate deficient Replete hematinics. (14) Accelerated hypertension Current Visit: Yes Status: Acute (15) Atrial fibrillation Current Visit: Yes Status: Acute (16) DVT prophylaxis Current Visit: Yes Status: Acute Neuro: Metabolic encephalopathy. Continue working on possible underlyig causes. Hold sedating medications. HEENT: Has oral lesion and poor dental Hygeine. outpatient ENT consultation. Continue chlorahexadene. Cardio: Afib currently sinus. Not on AC due to recent GI bleed. has left Atrial thrombus. Pulm: rhoncherous on exam. Likley from secretions. Dunebs, Flutter valve. GI: No issues at this time. Renal: FRAN improving continue to hold lasix. MSK: PT.OT Integument: No issues. Lytes: No major abnormalities. Heme: Iron and folate deficient and recent blood loss are all plaing into patients anemia. May benefit from IV iron when More stable. Nutrition: Add a diet when she has a strong gag reflex and is mentating better. Lines: 2 peripheral IVs and a de los santos. May be able to Dc de los santos in AM if Mentation imrpoves. Subjective Principal diagnosis: metabolic encephalopathy, ARF, acute blood loss anemia Interval history: No major events overnight. Patient had improvement in her mental status overnight. She was extubated this morning. Currently she is still confused and uncooperative with exam. She is answering some questions appropriately by nodding her head yes or no. She is currently alert state is awake during the entire acevedo of the exam. However she is non-verbal this morning. Objective PUL Vital signs: Last Vital Signs Temp 99.1 F 10/12/16 07:57 Pulse 78 10/12/16 09:00 Resp 24 10/12/16 09:00 BP 145/77 10/12/16 09:00 Pulse Ox 99 10/12/16 09:00 24 hour vital signs were reviewed. Gen.: This is a well-developed well-nourished 65-year-old female. She is currently alert but not orientated. She does answer some questions by nodding her head. She is unkempt with poor dental hygiene. HEENT: Head is normocephalic and atraumatic. Pupils are equally round and reactive to light and accommodation. Anicteric sclera. Normal external appearance of ears nose and eyes. The dentition is very poor. She does have some broken teeth as well as multiple caries. Also has gingival disease with atrophy of the gums. Additionally she has a lesion at the roof of the mouth appears to be possibly a torus palatinus however there is some crusting and bleeding from this lesion. I could not visualize the posterior pharynx very well due to patient uncooperative. Heart: Regular rate and rhythm without murmurs rubs or gallops. No JVD. Radial pulses are 2 out of 4 and synchronous. Lungs: Normal effort of breathing. Does not have any accessory muscle use at this time. However she does have bilateral rhonchi throughout the lung bass. Abdomen: Abdomen is obese, soft, nondistended, nontender to palpation. No organomegaly. No bruits. Musculoskeletal: Grossly normal for age no gross deformities noted. Integument: No rashes or lesions. Neuro: No facial droop or asymaty. Patient moves all extremities and follows some commonds. Exam is limited by patients confusion. Lines: 2 peripheral IVs and a [place] catheter. Ventilator Settings Ventilator Settings: Ventilator Settings, Last 8 Hours Ventilator Mode CPAP Ventilator Mode CPAP Ventilator Mode VC+ Ventilator Mode VC+ Ventilator Mode VC+ Ventilator Mode VC+ Ventilator Mode VC+ Ventilator Tidal Volume 420 Setting Ventilator Tidal Volume 420 Setting Ventilator Tidal Volume 420 Setting Ventilator Tidal Volume 420 Setting Ventilator Tidal Volume 420 Setting Ventilator Respiratory Rate 16 Setting Ventilator Respiratory Rate 16 Setting Ventilator Respiratory Rate 16 Setting Ventilator Respiratory Rate 16 Setting Ventilator Respiratory Rate 16 Setting Actual Respiratory Rate 25 Actual Respiratory Rate 25 Actual Respiratory Rate 20 Actual Respiratory Rate 22 Actual Respiratory Rate 18 Actual Respiratory Rate 17 Actual Respiratory Rate 27 Positive End Expiratory 5 Pressure Positive End Expiratory 5 Pressure Positive End Expiratory 5 Pressure Positive End Expiratory 5 Pressure Positive End Expiratory 5 Pressure Positive End Expiratory 5 Pressure Positive End Expiratory 5 Pressure Peak Inspiratory Airway 15 Pressure Peak Inspiratory Airway 15 Pressure Peak Inspiratory Airway 11 Pressure Peak Inspiratory Airway 20 Pressure Peak Inspiratory Airway 20 Pressure Peak Inspiratory Airway 20 Pressure Peak Inspiratory Airway 10 Pressure Extubated 10/12/16 Results - Laboratory Findings CBC and BMP: 10/12/16 04:00 10/12/16 04:00 ABG ABG pH 7.47 pH Units (7.32-7.45) H 10/11/16 08:15 ABG pCO2 36 mmHg (35-45) 10/11/16 08:15 ABG pO2 94 mmHg (85-104) 10/11/16 08:15 ABG O2 Saturation 98 % (95-98) 10/11/16 08:15 PT/INR, D-dimer PT 15.8 Seconds (9.4-12.1) H 10/12/16 04:00 Abnormal lab findings: Abnormal lab results RBC 2.94 M/mcL (3.82-4.97) L 10/12/16 04:00 Hgb 7.9 g/dL (11.5-15.4) L 10/12/16 04:00 Hct 26.1 % (35.3-44.9) L 10/12/16 04:00 MCH 26.9 pg (28.0-33.3) L 10/12/16 04:00 MCHC 30.3 g/dL (31.6-35.5) L 10/12/16 04:00 RDW 18.8 % (11.5-14.5) H 10/12/16 04:00 Plt Count 139 K/mcL (140-400) L 10/12/16 04:00 Band Neutrophils % 6.0 % (0-4) H 10/12/16 04:00 Nucleated RBCs/100 WBC 0.4 /100 WBC (0) H 10/11/16 03:30 Reactive Lymphocytes Present (Not Present) A 10/12/16 04:00 Polychromasia 1+ (Not Present) A 10/08/16 02:53 Basophilic Stippling 1+ (Not Present) A 10/08/16 02:53 Anisocytosis 1+ (Not Present) A 10/11/16 03:30 Microcytosis Present (Not Present) A 10/10/16 03:30 Macrocytosis Present (Not Present) A 10/08/16 02:53 PT 15.8 Seconds (9.4-12.1) H 10/12/16 04:00 ABG pH 7.47 pH Units (7.32-7.45) H 10/11/16 08:15 ABG Total CO2 27.3 mEq/L (20-26) H 10/11/16 08:15 Chloride 111 mEq/L (98-109) H 10/12/16 04:00 BUN 50 mg/dL (7-20) H 10/12/16 04:00 Creatinine 1.15 mg/dL (0.57-1.11) H 10/12/16 04:00 Est GFR ( Amer) 57 (> 60) L 10/12/16 04:00 Est GFR (Non-Af Amer) 47 (> 60) L 10/12/16 04:00 BUN/Creatinine Ratio 43 (6-26) H 10/12/16 04:00 Glucose 175 mg/dL (70-99) H 10/12/16 04:00 POC Glucose 132 (58-89) H 10/12/16 07:37 Calculated Osmolality 318 (280-300) H 10/12/16 04:00 Uric Acid 10.1 mg/dL (2.6-6.0) H 09/30/16 04:37 Ionized Calcium 1.14 mmol/L (1.15-1.35) L 10/12/16 04:00 Troponin I 0.06 ng/mL (0-0.03) H* 09/28/16 01:00 Albumin 2.5 g/dL (3.5-5.0) L 10/11/16 03:30 Albumin (PEP) 3.57 g/dL (3.75-5.01) L 09/30/16 04:37 Albumin/Globulin Ratio 1.0 (1.1-2.2) L 10/07/16 05:40 Urine Clarity Turbid (Clear) A 09/28/16 18:30 Ur Specific [place] > 1.030 (1.010-1.025) H 09/28/16 18:30 Urine Protein >=1000 mg/dL (Neg-Trace) H 09/28/16 18:30 Urine Glucose (UA) 100 mg/dL (Normal) H 09/28/16 18:30 Urine Ketones Trace mg/dL (Negative) H 09/28/16 18:30 Urine Bilirubin Small (Negative) H 09/28/16 18:30 Ur Leukocyte Esterase Moderate (Negative) H 09/28/16 18:30 Urine Microscopic WBC TNTC per hpf (0-3) H 09/28/16 18:30 Ur Squamous Epith Cells Many per lpf (None-Few) H 09/28/16 18:30 Amorphous Sediment Moderate (Few) H 09/28/16 18:30 Urine Bacteria Moderate per hpf (None-Few) H 09/28/16 18:30 Urine Yeast Few per hpf (None Seen) H 09/28/16 18:30 Ur Culture Indicated? YES (NO) A 09/28/16 18:30 Urine Total Protein 26 mg/dL (1-14) H 09/30/16 11:25 Stool Occult Blood Positive (Negative) A 09/27/16 13:48 Digoxin 2.4 ng/mL (0.8-2.0) H 09/28/16 06:46 - Microbiology Findings Microbiology Findings: Microbiology, Last 48 Hours 10/10/16 09:07 Blood Culture - Preliminary Peripheral Venipuncture No growth. 10/10/16 07:17 Blood Culture - Preliminary Peripheral Venipuncture No growth. 10/11/16 15:15 Legionella Antigen - Final Urine,[place] 10/11/16 15:15 Streptococcus pneumoniae Antigen (M - Final Urine,[place] 10/08/16 01:41 Blood Culture - Preliminary Peripheral Venipuncture Gram Negative Matty 10/08/16 01:20 Sputum Culture - Final Sputum - Clinical Findings Intake & Output: Intake & Output 10/11/16 10/12/16 10/12/16 23:59 07:59 15:59 Intake Total 1725 / 1725 978 / 978 160 / 160 Output Total 1000 / 1000 450 / 450 Balance 725 / 725 528 / 528 160 / 160 Weight 106.5 kg - VTE Documentation of Mechanical Device: Intermittent pneumatic compression device Consult Discharge Plan - Plan Referrals: Ward Mcmanus MD [Primary Care Provider] - 10/08/16 2:00 pm () Eleni Edge CNP [Partnered Physician] - 10/12/16 8:45 am (in [place] office ) <Elicia Milligan - Last Filed: 10/12/16 20:54> Date of Encounter: 10/12/16 Objective PUL Vital signs: Last Vital Signs Temp 97.7 F 10/12/16 15:34 Pulse 86 10/12/16 17:00 Resp 22 10/12/16 17:00 BP 180/71 10/12/16 17:00 Pulse Ox 95 10/12/16 17:00 Results - Laboratory Findings CBC and BMP: 10/12/16 04:00 10/12/16 04:00 ABG ABG pH 7.47 pH Units (7.32-7.45) H 10/11/16 08:15 ABG pCO2 36 mmHg (35-45) 10/11/16 08:15 ABG pO2 94 mmHg (85-104) 10/11/16 08:15 ABG O2 Saturation 98 % (95-98) 10/11/16 08:15 PT/INR, D-dimer PT 15.8 Seconds (9.4-12.1) H 10/12/16 04:00 Abnormal lab findings: Abnormal lab results RBC 2.94 M/mcL (3.82-4.97) L 10/12/16 04:00 Hgb 7.9 g/dL (11.5-15.4) L 10/12/16 04:00 Hct 26.1 % (35.3-44.9) L 10/12/16 04:00 MCH 26.9 pg (28.0-33.3) L 10/12/16 04:00 MCHC 30.3 g/dL (31.6-35.5) L 10/12/16 04:00 RDW 18.8 % (11.5-14.5) H 10/12/16 04:00 Plt Count 139 K/mcL (140-400) L 10/12/16 04:00 Band Neutrophils % 6.0 % (0-4) H 10/12/16 04:00 Nucleated RBCs/100 WBC 0.4 /100 WBC (0) H 10/11/16 03:30 Reactive Lymphocytes Present (Not Present) A 10/12/16 04:00 Polychromasia 1+ (Not Present) A 10/08/16 02:53 Basophilic Stippling 1+ (Not Present) A 10/08/16 02:53 Anisocytosis 1+ (Not Present) A 10/11/16 03:30 Microcytosis Present (Not Present) A 10/10/16 03:30 Macrocytosis Present (Not Present) A 10/08/16 02:53 PT 15.8 Seconds (9.4-12.1) H 10/12/16 04:00 ABG pH 7.47 pH Units (7.32-7.45) H 10/11/16 08:15 ABG Total CO2 27.3 mEq/L (20-26) H 10/11/16 08:15 Chloride 111 mEq/L (98-109) H 10/12/16 04:00 BUN 50 mg/dL (7-20) H 10/12/16 04:00 Creatinine 1.15 mg/dL (0.57-1.11) H 10/12/16 04:00 Est GFR ( Amer) 57 (> 60) L 10/12/16 04:00 Est GFR (Non-Af Amer) 47 (> 60) L 10/12/16 04:00 BUN/Creatinine Ratio 43 (6-26) H 10/12/16 04:00 Glucose 175 mg/dL (70-99) H 10/12/16 04:00 POC Glucose 139 (58-89) H 10/12/16 15:13 Calculated Osmolality 318 (280-300) H 10/12/16 04:00 Uric Acid 10.1 mg/dL (2.6-6.0) H 09/30/16 04:37 Ionized Calcium 1.14 mmol/L (1.15-1.35) L 10/12/16 04:00 Troponin I 0.06 ng/mL (0-0.03) H* 09/28/16 01:00 Albumin 2.5 g/dL (3.5-5.0) L 10/11/16 03:30 Albumin (PEP) 3.57 g/dL (3.75-5.01) L 09/30/16 04:37 Albumin/Globulin Ratio 1.0 (1.1-2.2) L 10/07/16 05:40 Urine Clarity Turbid (Clear) A 09/28/16 18:30 Ur Specific [place] > 1.030 (1.010-1.025) H 09/28/16 18:30 Urine Protein >=1000 mg/dL (Neg-Trace) H 09/28/16 18:30 Urine Glucose (UA) 100 mg/dL (Normal) H 09/28/16 18:30 Urine Ketones Trace mg/dL (Negative) H 09/28/16 18:30 Urine Bilirubin Small (Negative) H 09/28/16 18:30 Ur Leukocyte Esterase Moderate (Negative) H 09/28/16 18:30 Urine Microscopic WBC TNTC per hpf (0-3) H 09/28/16 18:30 Ur Squamous Epith Cells Many per lpf (None-Few) H 09/28/16 18:30 Amorphous Sediment Moderate (Few) H 09/28/16 18:30 Urine Bacteria Moderate per hpf (None-Few) H 09/28/16 18:30 Urine Yeast Few per hpf (None Seen) H 09/28/16 18:30 Ur Culture Indicated? YES (NO) A 09/28/16 18:30 Urine Total Protein 26 mg/dL (1-14) H 09/30/16 11:25 Stool Occult Blood Positive (Negative) A 09/27/16 13:48 Digoxin 2.4 ng/mL (0.8-2.0) H 09/28/16 06:46 - Microbiology Findings Microbiology Findings: Microbiology, Last 48 Hours 10/10/16 09:07 Blood Culture - Preliminary Peripheral Venipuncture No growth. 10/10/16 07:17 Blood Culture - Preliminary Peripheral Venipuncture No growth. 10/11/16 15:15 Legionella Antigen - Final Urine,[place] 10/11/16 15:15 Streptococcus pneumoniae Antigen (M - Final Urine,[place] - Clinical Findings Intake & Output: Intake & Output 10/12/16 10/12/16 10/12/16 07:59 15:59 23:59 Intake Total 978 / 978 360 / 360 70 / 70 Output Total 450 / 450 675 / 675 Balance 528 / 528 -315 / -315 70 / 70 Weight 106.5 kg - Attending Attestation I examined this patient and my medical decision-making was reviewed with the BRAND MARKETING COORDINATOR/PA/Advanced Practice Nurse/Resident Physician. I agree with the documented findings, disposition and treatment plan as described except to the extent set forth below. Patient seen and examined. Labs, radiology, chart personally reviewed. 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 No need for LP and discussed with neurology. Pulmonary: Acceptable oxygenation and ventilation and patient extubated and close monitor in ICU. I suspect patient has PETE and will have patient on NIV PRN and at night Cardiovascular: stable GI: Nutrition per dietary and GI prophylaxis per routine Heme: DVT prophylaxis per routine ID: Continue antibiotics and plan to de-escalation Renal; urine out put and renal funtion reviewed Endorcine: blood glucose is monitored Lines: all lines checked and no evidence of infections Skin: skin care to prevent pressure ulcers per nursing routine care
[2016-10-12] MEDS: Nystatin SUSP 5 ML UD.LIQ PO SCH ×4 (10:04→20:31)
[2016-10-12] MEDS: Ipratropium/Albuterol Neb 3 ML IH SCH ×4 (12:38→23:26)
--- NOTE | 2016-10-12 14:18 | Infectious Disease Consult ---
Date of Encounter: 10/11/16 Time of Encounter: 14:00 Assessment and Plan (1) Fever Status: Acute Assessment and plan: On 10/08/2016 Etiology not clear, possibly due to bacteremia. Afebrile since then. No signs of upper respiratory infection, no signs of pneumonia, no signs of abdominal source, no sign of meningitis. Qualifiers: Fever type: unspecified Qualified Code(s): R50.9 - Fever, unspecified (2) Bacteremia Status: Acute Assessment and plan: On 10/08/16 with a gram-negative matty non-filling hauler. Repeat cultures on 10/10/16 no growth to date Source is not clear since the bacteria is not the same as the urinary tract infection Escherichia coli ESBL. Not sure if it's true infection versus a contaminant Concern for possible GI source if we can't find any other source. (3) Bacteremia due to Gram-negative bacteria Status: Acute (4) UTI (urinary tract infection) Status: Acute Assessment and plan: Secondary to ESBL Escherichia coli Received 11 days worth of antibiotics including ertapenem then switched to Zosyn Urine does not appear grossly infected Qualifiers: Urinary tract infection type: acute cystitis Hematuria presence: without hematuria Qualified Code(s): N30.00 - Acute cystitis without hematuria (5) Acute renal injury Status: Acute (6) Altered mental status Status: Acute Assessment and plan: Etiology not clear. Questionable silent seizure and it was attributed to ertapenem which I feel is unlikely since the symptoms started before the ertapenem Likely currently on fosphenytoin and Seroquel Does not appear to be a meningitis encephalitis cannot be ruled out We'll discuss with neurology if LP is warranted we will check for HSV PCR, adenovirus, cultures and Gram stain, CSF chemistry MRI reviewed EEG results noted Qualifiers: Altered mental status type: coma Coma depth: [place] coma 3-8 Coma timing : 24 hours or more after hospital admission Qualified Code(s): R40.2434 - [place] coma scale score 3-8, 24 hours or more after hospital admission (7) Coumadin toxicity Status: Acute Qualifiers: Encounter type: initial encounter Injury intent: accidental or unintentional Qualified Code(s): T45.511A - Poisoning by anticoagulants, accidental (unintentional), initial encounter (8) Acute GI bleeding Status: Acute (9) Anemia Status: Acute Qualifiers: Anemia type: other cause Other causes of anemia: acute posthemorrhagic Qualified Code(s): D62 - Acute posthemorrhagic anemia (10) Afib Status: Chronic Qualifiers: Atrial fibrillation type: paroxysmal Qualified Code(s): I48.0 - Paroxysmal atrial fibrillation Infectious Disease HPI - Data of Consult Patient: new to practice Consult date: 10/11/16 Requesting Physician: Michael Nicole MD Primary Care Provider: Ward Mcmanus MD - Consult Narrative Reason for consult: altered mental status/fever/UTI History of present illness: Ms. Hernández is a 65 year old female Patient is a 65-year-old woman who was admitted to [place] [facility] on 09/27/2016 with chest pain and altered mental status and was found to be in acute lower GI bleed. We are consulted on 10/11/2016 with a UTI multidrug resistant Escherichia coli ESBL and bacteremia with gram-negative rods. Patient is 65-year-old woman with past medical history mentioned below including atrial fibrillation, congestive heart failure and history of GI bleed and anemia with Coumadin toxicity in the past came into the ER with dizziness and chest pain. Records from the emergency department does not state that the patient had altered mental status but resident tells me that on admission she did have some altered mental status. Patient was admitted and Coumadin toxicity was reversed and patient was transfused 3 units of packed RBCs and admitted to the ICU and was placed on ventilator support due to altered mental status. On admission patient was in acute kidney injury with oliguria and creatinine jumped up to 5 a urine culture was obtained which revealed Escherichia coli ESBL on 09/30 patient was started on ertapenem. The resident tells me that her altered mental status happened before the ertapenem was started. Because of her altered mental status patient was seen by neurology and MRI and EEG were done and at one point they thought she was having silent seizure and the ertapenem was DCd. Patient was switched to Zosyn. On 10/08/2016, patient spiked a fever of 102 and a blood culture was obtained which was positive for gram-negative matty are non-filling hauler and were not picked up by the PCR. I called microbiology and I spoke with [place] and went over what the possibility of the bacteria is and is unlikely to be an Escherichia coli ESBL. Patient had repeat cultures on 10/10/16 and the results are pending. We were asked to evaluate the patient and make further recommendation. Physical exam on the patient shows a patient that is waking up on her own opening eye spontaneously and appears to be uncomfortable with the endotracheal tube but she does not follow commands or respond to oral stimuli. Physical exam was truly unremarkable other for a power glide in the left upper extremity that does not appear to be infected and her urine appears to be clear in the [place]. Patient is not having any diarrhea per nursing staff. Patient continues to be on vent support requiring FiO2 of 30% and a PEEP of 5. Patients chest x-ray was also reviewed which shows some pleural effusion but no active pneumonia. CC: Michael Nicole MD Past Med Surg Social Fam HX - Past Medical History Medical history: asthma, cancer, CHF, diabetes, GI bleed, hyperlipidemia, hypertension Psychiatric history: anxiety - Past Surgical History Surgical History: appendectomy, breast surgery, coronary bypass (CABG) - Social History Smoking Status: Former smoker Smokeless Tobacco Status: No Alcohol use: none Drug use: none - Family History Father Adopted: No Family Member Ethnicity: Non- Living Status: Hx Family Cardiac Disorders: Yes Hx Family Respiratory Disorders: Yes Hx Family Cancer: Yes (Liver cancer) Hx Family GI Disorders: No Hx Family Endocrine Disorder: Yes Hx Family Neuromuscular Disorders: No Hx Family Neurologic Disorders: No Hx Family HEENT Disorders: No Hx Family Autoimmune Disorders: No Infectious Disease-CN:Meds Cholecalciferol (D-3) [Vitamin D] 2,000 unit PO DAILY 04/18/16 [History] Diphenoxylate/Atropine [Lomotil 2.5 mg/0.025 mg] 1 tab PO BID PRN 04/18/16 [ History] Gabapentin [Neurontin] 900 mg PO HS 04/18/16 [History] Losartan/Hydrochlorothiazide [Hyzaar 100-12.5 Tablet] 1 tab PO DAILY 04/18/16 [ History] Metformin HCl [Metformin HCl ER] 500 mg PO BID 04/18/16 [History] Aspirin Enteric Coated [Aspirin EC] 81 mg PO DAILY #30 tablet. 06/14/16 [Rx] Digoxin [Lanoxin] 0.125 mg PO DAILY #30 tablet 06/14/16 [Rx] Citalopram Hydrobromide [Celexa] 30 mg PO DAILY 07/23/16 [History] Metoprolol Succinate 200 mg PO BID 07/23/16 [History] Warfarin [Coumadin] 2 mg PO SUFR 07/23/16 [History] Warfarin [Coumadin] 4 mg PO MOTUWETHSA 07/23/16 [History] Diltiazem CD (24hr) [Cardizem CD] 120 mg PO DAILY #30 cap.er.24h 07/26/16 [Rx] Ferrous Sulfate 325 mg PO BIDWM #30 tablet 09/10/16 [Rx] Albuterol Sulfate [Albuterol Inhaler] 2 puff IH Q4H PRN 09/27/16 [History] Amoxicillin [Amoxil] 500 mg PO QID 09/27/16 [History] Atorvastatin Calcium [Lipitor] 20 mg PO HS 09/27/16 [History] Clarithromycin [Biaxin] 500 mg PO BID 09/27/16 [History] Fluticasone/Salmeterol [Advair Hfa 230-21 Mcg Inhaler] 2 puff IH BID 09/27/16 [ History] Pantoprazole Sodium [Protonix] 40 mg PO BID 09/27/16 [History] Allergies No Known Allergies Allergy (Verified 06/12/16 09:27) ROS unobtainable: due to mental status Exam - Constitutional Vitals: Temp Pulse Resp BP Pulse Ox 97.5 F L 89 22 171/72 98 10/12/16 11:37 10/12/16 13:00 10/12/16 13:00 10/12/16 13:00 10/12/16 13:00 Exam: Sedated and intubated nonresponsive - Head Head exam: Present: atraumatic, normocephalic - Eye Eye exam: Present: EOMI, PERRL, sclera anicteric - ENT Additional comments: Mucous membranes dry, endotracheal tube intact, no oral lesions or herpetic lesions. - Neck Neck exam: Present: full ROM. Absent: meningismus - Respiratory Additional comments: Air sounds audible both lung bass. Rales audible on the left side of the chest. Chest expanding symmetrically. - Cardiovascular Cardiovascular exam: Present: RRR, +S1, +S2 Additional comments: No audible murmur - GI/Abdominal GI/Abdominal exam: Present: hypoactive bowel sounds, soft. Absent: guarding - Extremities Exam Extremities exam: Present: normal inspection. Absent: joint swelling, pedal edema - Neurological Exam Additional comments: Unable to assess since patient is sedated - Skin Additional comments: No rash, no endocarditis stigmata Infectious Disease CN: Results - Labs CBC & Chem 7: 10/12/16 04:00 10/12/16 04:00 Cultures: Cultures 10/10/16 09:07 Blood Culture - Preliminary Peripheral Venipuncture No growth. 10/10/16 07:17 Blood Culture - Preliminary Peripheral Venipuncture No growth. 10/11/16 15:15 Legionella Antigen - Final Urine,[place] 10/11/16 15:15 Streptococcus pneumoniae Antigen (M - Final Urine,[place] 10/08/16 01:41 Blood Culture - Preliminary Peripheral Venipuncture Gram Negative Mat[place] 10/08/16 01:20 Sputum Culture - Final Sputum 10/08/16 01:20 Urine Culture - Final Urine,Catheterized No growth. 09/28/16 18:30 Urine Culture - Final Urine,Clean Catch Escherichia coli ESBL Serology: Serology 10/11/16 10/08/16 09/30/16 Range/Units 15:15 01:41 11:25 Urine Color (Yellow) Urine Clarity (Clear) Urine pH (5.0-8.0) pH Units Ur Specific [place] (1.010-1.025) Urine Protein (Neg-Trace) mg/dL Urine Glucose (UA) (Normal) mg/dL Urine Ketones (Negative) mg/dL Urine Blood (Negative) Urine Nitrite (Negative) Urine Bilirubin (Negative) Urine Urobilinogen (Normal) mg/dL Ur Leukocyte Esterase (Negative) Urine Microscopic RBC (0-3) per hpf Urine Microscopic WBC (0-3) per hpf Ur Squamous Epith Cells (None-Few) per lpf Calcium Oxalate Crystal Amorphous Sediment (Few) Urine Bacteria (None-Few) per hpf Hyaline Casts (None-Few) per lpf Urine Mucus (Few) Urine Yeast (None Seen) per hpf Ur Culture Indicated? (NO) Urine Creatinine 134 mg/dL Protein/Creatinin Ratio 0.19 (0-0.20) mg/mg Urine Sodium mEq/L Urine Total Protein 26 H (1-14) mg/dL A. baumannii (PCR) Not Detected (Not Detect) Lorraine albicans (PCR) Not Detected (Not Detect) C. glabrata (PCR) Not Detected (Not Detect) C. krusei (PCR) Not Detected (Not Detect) C. parapsilosis (PCR) Not Detected (Not Detect) C. tropicalis (PCR) Not Detected (Not Detect) Enterobacteriac sp PCR Not Detected (Not Detect) E. cloacae complex PCR Not Detected (Not Detect) Enterococcus sp PCR Not Detected (Not Detect) E. coli (PCR) Not Detected (Not Detect) H. influenzae (PCR) Not Detected (Not Detect) HIV Ag/Ab Combo Qual Nonreactive (Nonreactive) Klebsiella oxytoca PCR Not Detected (Not Detect) Klebsiella pneumoniae Not Detected (Not Detect) List. monocytogenes PCR Not Detected (Not Detect) N. meningitidis (PCR) Not Detected (Not Detect) Proteus species (PCR) Not Detected (Not Detect) Serratia marcescens PCR Not Detected (Not Detect) Staphylococcus sp PCR Not Detected (Not Detect) Staph aureus (PCR) Not Detected (Not Detect) mecA-Methicil Res Gene N/A (Not Detect) Streptococcus sp PCR Not Detected (Not Detect) Group A Strep DNA Not Detected (Not Detect) Group B Strep (PCR) Not Detected (Not Detect) Strep pneumoniae (PCR) Not Detected (Not Detect) P. aeruginosa (PCR) Not Detected (Not Detect) Sydney/B-Vanco Res Genes N/A (Not Detect) KPC (blaKPC) Detect PCR N/A (Not Detect) 09/30/16 09/28/16 Range/Units 11:25 18:30 Urine Color Dark Yellow (Yellow) Urine Clarity Turbid A (Clear) Urine pH 5.5 (5.0-8.0) pH Units Ur Specific [place] > 1.030 H (1.010-1.025) Urine Protein >=1000 H (Neg-Trace) mg/dL Urine Glucose (UA) 100 H (Normal) mg/dL Urine Ketones Trace H (Negative) mg/dL Urine Blood Negative (Negative) Urine Nitrite Negative (Negative) Urine Bilirubin Small H (Negative) Urine Urobilinogen Normal (Normal) mg/dL Ur Leukocyte Esterase Moderate H (Negative) Urine Microscopic RBC 0-3 (0-3) per hpf Urine Microscopic WBC TNTC H (0-3) per hpf Ur Squamous Epith Cells Many H (None-Few) per lpf Calcium Oxalate Crystal Present Amorphous Sediment Moderate H (Few) Urine Bacteria Moderate H (None-Few) per hpf Hyaline Casts Few (None-Few) per lpf Urine Mucus Few (Few) Urine Yeast Few H (None Seen) per hpf Ur Culture Indicated? YES A (NO) Urine Creatinine mg/dL Protein/Creatinin Ratio (0-0.20) mg/mg Urine Sodium 33.0 mEq/L Urine Total Protein (1-14) mg/dL A. baumannii (PCR) (Not Detect) Lorraine albicans (PCR) (Not Detect) C. glabrata (PCR) (Not Detect) C. krusei (PCR) (Not Detect) C. parapsilosis (PCR) (Not Detect) C. tropicalis (PCR) (Not Detect) Enterobacteriac sp PCR (Not Detect) E. cloacae complex PCR (Not Detect) Enterococcus sp PCR (Not Detect) E. coli (PCR) (Not Detect) H. influenzae (PCR) (Not Detect) HIV Ag/Ab Combo Qual (Nonreactive) Klebsiella oxytoca PCR (Not Detect) Klebsiella pneumoniae (Not Detect) List. monocytogenes PCR (Not Detect) N. meningitidis (PCR) (Not Detect) Proteus species (PCR) (Not Detect) Serratia marcescens PCR (Not Detect) Staphylococcus sp PCR (Not Detect) Staph aureus (PCR) (Not Detect) mecA-Methicil Res Gene (Not Detect) Streptococcus sp PCR (Not Detect) Group A Strep DNA (Not Detect) Group B Strep (PCR) (Not Detect) Strep pneumoniae (PCR) (Not Detect) P. aeruginosa (PCR) (Not Detect) Sydney/B-Vanco Res Genes (Not Detect) KPC (blaKPC) Detect PCR (Not Detect) - VTE Documentation of Mechanical Device: Intermittent pneumatic compression device Consult Discharge Plan - Plan Referrals: Ward Mcmanus MD [Primary Care Provider] - 10/08/16 2:00 pm () Eleni Edge CNP [Partnered Physician] - 10/12/16 8:45 am (in [place] office )
[2016-10-12] MEDS: FentaNYL (PF) 1,000 MCG in 0.9 % Sodium Chloride 80 ML IVC SCH (20:30)
[2016-10-12] MEDS: Melatonin 3 MG TABLET PO SCH (20:31)
[2016-10-12] MEDS ORDERED: *HR* Morphine 2 MG/ML SYRINGE IVP PRN (20:49)
[2016-10-12] MEDS: *HR* Metoprolol 5 MG/5 ML VIAL IVP PRN (21:01)
[2016-10-13 03:51] LABS: Basophils # 0.1 K/mcL (0.0-0.2); Basophils % 0.4 %; Eosinophils # 0.1 K/mcL (0.0-0.6); Eosinophils % 0.8 %; Hematocrit 29.7 % (35.3-44.9); Immature Granulocytes % 2.2 % (0-4); Immature Platelets 5.1 % (1.1-6.1); Mean Corpuscular HGB Conc 30.3 g/dL (31.6-35.5); Mean Corpuscular Hemoglobin 26.8 pg (28.0-33.3); Mean Corpuscular Volume 88.4 fL (83.0-100.0); Mean Platelet Volume 10.6 fL (9.4-12.4); Monocytes % 6.9 %; Platelet Count 212 K/mcL (140-400); Red Blood Count 3.36 M/mcL (3.82-4.97); Red Cell Distribution Width 18.9 % (11.5-14.5); Segmented Neutrophils % 78.7 %
[2016-10-13 03:52] LABS: Lymphocytes # 1.5 K/mcL (0.6-4.6)
[2016-10-13] MEDS: Ipratropium/Albuterol Neb 3 ML IH SCH ×6 (04:03→20:44)
[2016-10-13 04:04] LABS: BUN/Creatinine Ratio 38 (6-26); Calcium 9.1 mg/dL (8.6-10.8); Carbon Dioxide 26 mEq/L (19-29); Chloride 113 mEq/L (98-109); Glucose 124 mg/dL (70-99); Magnesium 1.4 mg/dL (1.6-2.6); Osmolality,Calculated 314 (280-300); Phosphorous 3.1 mg/dL (2.3-4.7); Potassium 3.4 mEq/L (3.5-4.5); Sodium 148 mEq/L (136-145); eGFR For African Americans > 60 (> 60); eGFR For Non-African Americans > 60 (> 60)
[2016-10-13 04:07] LABS: Blood Urea Nitrogen 30 mg/dL (7-20)
[2016-10-13] MEDS: *HR* Enoxaparin 40 MG/0.4 ML SYRINGE SQ SCH (04:59)
[2016-10-13] MEDS: Magnesium Sulfate 2 GM in D5% in Water 100 ML IVPB PRN (04:59)
[2016-10-13] MEDS: Lacri-Lube 3.5 GM TUBE BOTH EYES SCH ×2 (05:52→08:07)
[2016-10-13] MEDS: FentaNYL (PF) 1,000 MCG in 0.9 % Sodium Chloride 80 ML IVC SCH (05:53)
--- NOTE | 2016-10-13 06:45 | Neurology Progress Note ---
Date of Encounter: 10/13/16 Time of Encounter: 06:39 Assessment and Plan (1) Toxic metabolic encephalopathy Current Visit: Yes Status: Acute Continue to suspect primarily non-neurologic etiology for decreased LOC. Doubtful of [employer]TER[employer] EX[employer]UTIVE infection as her mental status is improving daily. However WBC' s are elevated this am. If suspicions of possible ENTER[employer] EXECUTIVE etiology are of concern, consider LP through IR. Will check serum lactate. Will continue to follow. Subjective Principal diagnosis: metabolic encephalopathy, ARF, acute blood loss anemia Interval history: Chart reviewed, pt. seen and examined, case discussed with night staff. Pt. is slowing improving with regard to mental status. Although she remains somnolent, she is arousable to voice, she makes eye contact, follows some commands, but not consistently. Nods head yes or no to answer some questions. Afebrile, however she has spike a white count today. No nuchal rigidity. No focal findings on neuro exam. Extubated yesterday. Sedation off. Objective - Constitutional Vitals: Temp Pulse Resp BP Pulse Ox 96.8 F L 80 17 166/69 100 10/13/16 04:22 10/13/16 06:00 10/13/16 06:00 10/13/16 06:00 10/13/16 06:00 General appearance: Present: cooperative, A&O X 3, no acute distress, answers questions appropriately - Neurological Exam Sensorimotor examination: Present: hemineglect, other Motor Examination: Present: other Sensation intact: Present: other (withdraws to pain x 4 ) Posture: Present: other Reflex and gait examination: other Mental Status Examination: Present: opens eyes to voice, opens eyes to noxious stimulation Cranial nerve examination: Present: PERRL (Hippus bilaterally), EOMI (unable to follow commands, but spontaenous eye movements to the left and right), corneal reflexes brisk symmetrically, sensory to face intact, no facial asymmetry is present Additional comments: As per comments in HPI. - VTE Documentation of Mechanical Device: Intermittent pneumatic compression device Results - Laboratory Findings CBC and BMP: 10/13/16 03:41 10/13/16 03:41 Abnormal lab findings: Abnormal lab results WBC 14.0 K/mcL (4.3-11.1) H D 10/13/16 03:41 RBC 3.36 M/mcL (3.82-4.97) L 10/13/16 03:41 Hgb 9.0 g/dL (11.5-15.4) L 10/13/16 03:41 Hct 29.7 % (35.3-44.9) L 10/13/16 03:41 MCH 26.8 pg (28.0-33.3) L 10/13/16 03:41 MCHC 30.3 g/dL (31.6-35.5) L 10/13/16 03:41 RDW 18.9 % (11.5-14.5) H 10/13/16 03:41 Band Neutrophils % 6.0 % (0-4) H 10/12/16 04:00 Neutrophils # 11.0 K/mcL (1.6-8.9) H 10/13/16 03:41 Nucleated RBCs/100 WBC 0.4 /100 WBC (0) H 10/11/16 03:30 Reactive Lymphocytes Present (Not Present) A 10/12/16 04:00 Polychromasia 1+ (Not Present) A 10/08/16 02:53 Basophilic Stippling 1+ (Not Present) A 10/08/16 02:53 Anisocytosis 1+ (Not Present) A 10/11/16 03:30 Microcytosis Present (Not Present) A 10/10/16 03:30 Macrocytosis Present (Not Present) A 10/08/16 02:53 PT 15.8 Seconds (9.4-12.1) H 10/12/16 04:00 ABG pH 7.47 pH Units (7.32-7.45) H 10/11/16 08:15 ABG Total CO2 27.3 mEq/L (20-26) H 10/11/16 08:15 Sodium 148 mEq/L (136-145) H 10/13/16 03:41 Potassium 3.4 mEq/L (3.5-4.5) L 10/13/16 03:41 Chloride 113 mEq/L (98-109) H 10/13/16 03:41 BUN 30 mg/dL (7-20) H D 10/13/16 03:41 BUN/Creatinine Ratio 38 (6-26) H 10/13/16 03:41 Glucose 124 mg/dL (70-99) H 10/13/16 03:41 POC Glucose 147 (58-89) H 10/12/16 19:48 Calculated Osmolality 314 (280-300) H 10/13/16 03:41 Uric Acid 10.1 mg/dL (2.6-6.0) H 09/30/16 04:37 Magnesium 1.4 mg/dL (1.6-2.6) L 10/13/16 03:41 Troponin I 0.06 ng/mL (0-0.03) H* 09/28/16 01:00 Albumin 2.5 g/dL (3.5-5.0) L 10/11/16 03:30 Albumin (PEP) 3.57 g/dL (3.75-5.01) L 09/30/16 04:37 Albumin/Globulin Ratio 1.0 (1.1-2.2) L 10/07/16 05:40 Urine Clarity Turbid (Clear) A 09/28/16 18:30 Ur Specific [place] > 1.030 (1.010-1.025) H 09/28/16 18:30 Urine Protein >=1000 mg/dL (Neg-Trace) H 09/28/16 18:30 Urine Glucose (UA) 100 mg/dL (Normal) H 09/28/16 18:30 Urine Ketones Trace mg/dL (Negative) H 09/28/16 18:30 Urine Bilirubin Small (Negative) H 09/28/16 18:30 Ur Leukocyte Esterase Moderate (Negative) H 09/28/16 18:30 Urine Microscopic WBC TNTC per hpf (0-3) H 09/28/16 18:30 Ur Squamous Epith Cells Many per lpf (None-Few) H 09/28/16 18:30 Amorphous Sediment Moderate (Few) H 09/28/16 18:30 Urine Bacteria Moderate per hpf (None-Few) H 09/28/16 18:30 Urine Yeast Few per hpf (None Seen) H 09/28/16 18:30 Ur Culture Indicated? YES (NO) A 09/28/16 18:30 Urine Total Protein 26 mg/dL (1-14) H 09/30/16 11:25 Stool Occult Blood Positive (Negative) A 09/27/16 13:48 Digoxin 2.4 ng/mL (0.8-2.0) H 09/28/16 06:46 Consult Discharge Plan - Plan Referrals: Ward Mcmanus MD [Primary Care Provider] - 10/08/16 2:00 pm () Eleni Edge CNP [Partnered Physician] - 10/12/16 8:45 am (in [place] office )
--- NOTE | 2016-10-13 07:45 | Pulmonology Progress Note ---
<RufinaElicia maki M - Last Filed: 10/13/16 12:42> Date of Encounter: 10/13/16 Objective PUL Vital signs: Last Vital Signs Temp 97.6 F 10/13/16 12:28 Pulse 94 10/13/16 12:09 Resp 20 10/13/16 12:06 BP 187/94 10/13/16 12:06 Pulse Ox 95 10/13/16 12:06 Results - Laboratory Findings CBC and BMP: 10/13/16 03:41 10/13/16 03:41 ABG ABG pH 7.47 pH Units (7.32-7.45) H 10/11/16 08:15 ABG pCO2 36 mmHg (35-45) 10/11/16 08:15 ABG pO2 94 mmHg (85-104) 10/11/16 08:15 ABG O2 Saturation 98 % (95-98) 10/11/16 08:15 PT/INR, D-dimer PT 15.8 Seconds (9.4-12.1) H 10/12/16 04:00 Abnormal lab findings: Abnormal lab results WBC 14.0 K/mcL (4.3-11.1) H D 10/13/16 03:41 RBC 3.36 M/mcL (3.82-4.97) L 10/13/16 03:41 Hgb 9.0 g/dL (11.5-15.4) L 10/13/16 03:41 Hct 29.7 % (35.3-44.9) L 10/13/16 03:41 MCH 26.8 pg (28.0-33.3) L 10/13/16 03:41 MCHC 30.3 g/dL (31.6-35.5) L 10/13/16 03:41 RDW 18.9 % (11.5-14.5) H 10/13/16 03:41 Band Neutrophils % 6.0 % (0-4) H 10/12/16 04:00 Neutrophils # 11.0 K/mcL (1.6-8.9) H 10/13/16 03:41 Nucleated RBCs/100 WBC 0.4 /100 WBC (0) H 10/11/16 03:30 Reactive Lymphocytes Present (Not Present) A 10/12/16 04:00 Polychromasia 1+ (Not Present) A 10/08/16 02:53 Basophilic Stippling 1+ (Not Present) A 10/08/16 02:53 Anisocytosis 1+ (Not Present) A 10/11/16 03:30 Microcytosis Present (Not Present) A 10/10/16 03:30 Macrocytosis Present (Not Present) A 10/08/16 02:53 PT 15.8 Seconds (9.4-12.1) H 10/12/16 04:00 ABG pH 7.47 pH Units (7.32-7.45) H 10/11/16 08:15 ABG Total CO2 27.3 mEq/L (20-26) H 10/11/16 08:15 Sodium 148 mEq/L (136-145) H 10/13/16 03:41 Potassium 3.4 mEq/L (3.5-4.5) L 10/13/16 03:41 Chloride 113 mEq/L (98-109) H 10/13/16 03:41 BUN 30 mg/dL (7-20) H D 10/13/16 03:41 BUN/Creatinine Ratio 38 (6-26) H 10/13/16 03:41 Glucose 124 mg/dL (70-99) H 10/13/16 03:41 POC Glucose 142 (58-89) H 10/13/16 11:30 Calculated Osmolality 314 (280-300) H 10/13/16 03:41 Uric Acid 10.1 mg/dL (2.6-6.0) H 09/30/16 04:37 Magnesium 1.4 mg/dL (1.6-2.6) L 10/13/16 03:41 Troponin I 0.06 ng/mL (0-0.03) H* 09/28/16 01:00 Albumin 2.5 g/dL (3.5-5.0) L 10/11/16 03:30 Albumin (PEP) 3.57 g/dL (3.75-5.01) L 09/30/16 04:37 Albumin/Globulin Ratio 1.0 (1.1-2.2) L 10/07/16 05:40 Urine Clarity Turbid (Clear) A 09/28/16 18:30 Ur Specific [place] > 1.030 (1.010-1.025) H 09/28/16 18:30 Urine Protein >=1000 mg/dL (Neg-Trace) H 09/28/16 18:30 Urine Glucose (UA) 100 mg/dL (Normal) H 09/28/16 18:30 Urine Ketones Trace mg/dL (Negative) H 09/28/16 18:30 Urine Bilirubin Small (Negative) H 09/28/16 18:30 Ur Leukocyte Esterase Moderate (Negative) H 09/28/16 18:30 Urine Microscopic WBC TNTC per hpf (0-3) H 09/28/16 18:30 Ur Squamous Epith Cells Many per lpf (None-Few) H 09/28/16 18:30 Amorphous Sediment Moderate (Few) H 09/28/16 18:30 Urine Bacteria Moderate per hpf (None-Few) H 09/28/16 18:30 Urine Yeast Few per hpf (None Seen) H 09/28/16 18:30 Ur Culture Indicated? YES (NO) A 09/28/16 18:30 Urine Total Protein 26 mg/dL (1-14) H 09/30/16 11:25 Stool Occult Blood Positive (Negative) A 09/27/16 13:48 Digoxin 2.4 ng/mL (0.8-2.0) H 09/28/16 06:46 - Microbiology Findings Microbiology Findings: Microbiology, Last 48 Hours 10/08/16 01:41 Blood Culture - Final Peripheral Venipuncture Pseudomonas stutzeri 10/10/16 09:07 Blood Culture - Preliminary Peripheral Venipuncture No growth. 10/10/16 07:17 Blood Culture - Preliminary Peripheral Venipuncture No growth. 10/11/16 15:15 Legionella Antigen - Final Urine,[place] 10/11/16 15:15 Streptococcus pneumoniae Antigen (M - Final Urine,[place] - Clinical Findings Intake & Output: Intake & Output 10/12/16 10/13/16 10/13/16 23:59 07:59 15:59 Intake Total 170 / 170 404 / 404 100 / 100 Output Total 400 / 400 950 / 950 300 / 300 Balance -230 / -230 -546 / -546 -200 / -200 Weight 105.097 kg Consult Discharge Plan - Plan Referrals: Ward Mcmanus MD [Primary Care Provider] - 10/08/16 2:00 pm () Minesh,Eleni L, MEDICAL RECORDS ANALYST [Partnered Physician] - 10/12/16 8:45 am (in [place] office ) - Attending Attestation I examined this patient and my medical decision-making was reviewed with the AIR CREW OFFICER/PA/Advanced Practice Nurse/Resident Physician. I agree with the documented findings, disposition and treatment plan as described except to the extent set forth below. Patient seen and examined. Labs, radiology, chart personally reviewed. Agree with resident's history and physical, assessment, plan with following comments: PHARMACEUTICAL PHYSICIAN: Patient follows commands, Pulmonary: Acceptable oxygenation and ventilation, however she is still at risk due to weak cough and risk of aspiration. Pulmonary toilet is extremely important and if needed noninvasive ventilation. Cardiovascular: stable GI: Nutrition per dietary and GI prophylaxis per routine. Awaiting for speech evaluation Heme: DVT prophylaxis per routine ID: Continue antibiotics and plan to de-escalation. Appreciate IDs input Renal; urine out put and renal funtion reviewed. Patient will need free water to correct hypernatremia Endorcine: blood glucose is monitored Lines: all lines checked and no evidence of infections Skin: skin care to prevent pressure ulcers per nursing routine care Transfer patient to N. <Marcel Singer - Last Filed: 10/13/16 15:53> Date of Encounter: 10/13/16 Time of Encounter: 07:45 Assessment and Plan (1) Acute respiratory failure with hypoxia Current Visit: Yes Status: Acute secondary to encephalopathy extubated yesterday 10/12/2016 continues to do well on 3L NC on exam, diffuse coarse bilateral rhonchi that is improving speech therapy consulted and recommends puree diet review of CXR 10/11/16, no obvious pneumonia remains afebrile but slight leukocytosis today 14, does not appear septic and they may be due to bacteremia Pseudomonas stutzeri continue on Zosyn day 4, ID is on board and will follow recommendations when tolerating PO consider switch to Cipro stable to transfer to (2) Toxic metabolic encephalopathy Current Visit: Yes Status: Acute improving etiology still unclear but likely multifactorial PT/OT/Speech therapy consulted - Speech recommends puree diet patient remains afebrile but WBC is elevated today 14 and repeat is 19, she does not appear septic and question if hemoconcentrated, started on D5/0.45NS mentation has improved but remains slightly confused and uncooperative appreciated Neurology input avoid sedating medications and continue to orient the patient history of depression, on Celexa, Psychiatry consulted (3) Bacteremia Current Visit: Yes Status: Acute Blood cultures from 10/08/16 have grown Pseudomonas stutzeri Repeat cultures from 10/10/16 show NGTD. Very poor oral hygiene, however no abscess noted History of ESBL UTI, likely not ESBL Ecoli given PCR results. remains afebrile since 10/08 currently she dose not meet sepsis criteria but elevated WBC this morning 14, consideration for hemoconcentration will start IVF maintenance (4) Chronic kidney disease Current Visit: No Status: Chronic acute on chronic renal failure CKD stage 3 Cr improved adequate UOP continue to hold Lasix Qualifiers: Chronic kidney disease stage: stage 3 (moderate) Qualified Code(s): N18.3 - Chronic kidney disease, stage 3 (moderate) (5) Diabetes mellitus type 2, noninsulin dependent Current Visit: No Status: Chronic blood glucose remains well controlled 140-170s on ISS GI prophylaxis recommend puree diet from speech therapy (6) Anemia Current Visit: Yes Status: Acute likely multifactorial recent GI bleed, iron deficiency, and folate hemoglobin remains stable 9.0, labs today appear hemoconcentrated during hospitalization since 09/27/16, received 3 units pRBCs on 09/27 no obvious signs of active bleeding Qualifiers: Anemia type: unspecified type Qualified Code(s): D64.9 - Anemia, unspecified (7) Chronic blood loss anemia Current Visit: No Status: Acute during hospitalization since 09/27/16, received 3 units pRBCs on 09/27 no obvious signs of active bleeding hemoglobin remains stable (8) Hypokalemia Current Visit: Yes Status: Acute recurrent, will continue to replete PRN (9) Hypomagnesemia Current Visit: No Status: Acute recurrent, will continue to replete PRN (10) Thrombus of left atrial appendage Current Visit: Yes Status: Chronic chronic COSTA thrombus from JAUN 07/16/16 previously on Coumadin but discontinued d/t supratherapeutic INR and GI bleed currently on ASA, recommend to hold AC from cardiology due to chronic GI bleed TTE 09/28 showed EF 60% without obvious evidence of COSTA thrombus, outpatient JAUN was recommended (11) Atrial fibrillation and flutter Current Visit: Yes Status: Resolved paroxysmal atrial fibrillation, remains in normal sinus rhythm (12) History of ESBL E. coli infection Current Visit: Yes Status: Acute (13) DVT prophylaxis Current Visit: Yes Status: Acute Lovenox subcutaneous Neuro: soft spoken but is awake alert and oriented to person, place, and time. Follows simple commands HEENT: has oral lesion and poor dental hygeine. Outpatient ENT consultation recommended. Continue chlorahexadene. Cardio: history of atrial fibrillation but currently NSR. Not on AC due to recent GI bleed. Has left atrial thrombus. Pulm: rhoncherous on exam, likely from secretions. Duonebs and flutter valve. Good oxygen saturation, however weak gag reflex and risk for aspiration GI: speech recommends puree diet Renal: FRAN improving continue to hold lasix, good UOP and renal function Endo: blood glucose monitored MSK: PT/OT consulted, recommend SNF Heme: Iron and folate deficient and recent blood loss are contributing into patients anemia. May benefit from IV iron when More stable. Nutrition: puree diet ID: blood culture 5/5 positive for P. stutzeri, repeat blood cultures NGTD, continue Zosyn and recommend Cipro when tolerating PO, follow ID recommendations Integument: No issues Lytes: hypernatremia, will need free water or if cannot tolerate PO D5/0.45NS Lines: 2 peripheral IVs and a [place]. May be able to DC [place] in AM if Mentation imrpoves. Subjective Principal diagnosis: metabolic encephalopathy, ARF, acute blood loss anemia Interval history: Patient seen and examined at bedside. No major events overnight. She has some mild improvement in her mental status. She appears more awake, alert, and is oriented to person place and time. She however remains uncooperative with exam, following some simple commands. Her voice is more audible and voices many times that she would like to go home. Denies any complaints such as chest pain, shortness of breath, abdominal pain, headache, nausea, or vomiting. Objective PUL Vital signs: Last Vital Signs Temp 96.8 F L 10/13/16 04:22 Pulse 80 10/13/16 06:00 Resp 16 10/13/16 07:42 BP 166/69 10/13/16 06:00 Pulse Ox 97 10/13/16 07:42 General appearance: no acute distress, alert, other (oriented to person, place, and time) Eyes: nonicteric, other (PERRL, EOMI) ENT: other (dentition is very poor with some broken teeth and multiple caries) Neck: supple, other (no nuchal rigidity or meningeal signs) Effort: normal Auscultation: bilateral: rhonchi Cardiovascular: regular rate and rhythm Gastrointestinal: normoactive bowel sounds, soft, non-tender, non-distended Integumentary: normal Extremities: pulses normal, no ischemia or petechiae, edema (+2 symmetrical bilaterally) Musculoskeletal: no deformities pupils equal and round, other (she is uncooperative on with majority of exam, no facial droop or asymmetry) Results - Laboratory Findings CBC and BMP: 10/13/16 12:33 10/13/16 03:41 ABG ABG pH 7.47 pH Units (7.32-7.45) H 10/11/16 08:15 ABG pCO2 36 mmHg (35-45) 10/11/16 08:15 ABG pO2 94 mmHg (85-104) 10/11/16 08:15 ABG O2 Saturation 98 % (95-98) 10/11/16 08:15 PT/INR, D-dimer PT 15.8 Seconds (9.4-12.1) H 10/12/16 04:00 Abnormal lab findings: Abnormal lab results WBC 14.0 K/mcL (4.3-11.1) H D 10/13/16 03:41 RBC 3.36 M/mcL (3.82-4.97) L 10/13/16 03:41 Hgb 9.0 g/dL (11.5-15.4) L 10/13/16 03:41 Hct 29.7 % (35.3-44.9) L 10/13/16 03:41 MCH 26.8 pg (28.0-33.3) L 10/13/16 03:41 MCHC 30.3 g/dL (31.6-35.5) L 10/13/16 03:41 RDW 18.9 % (11.5-14.5) H 10/13/16 03:41 Band Neutrophils % 6.0 % (0-4) H 10/12/16 04:00 Neutrophils # 11.0 K/mcL (1.6-8.9) H 10/13/16 03:41 Nucleated RBCs/100 WBC 0.4 /100 WBC (0) H 10/11/16 03:30 Reactive Lymphocytes Present (Not Present) A 10/12/16 04:00 Polychromasia 1+ (Not Present) A 10/08/16 02:53 Basophilic Stippling 1+ (Not Present) A 10/08/16 02:53 Anisocytosis 1+ (Not Present) A 10/11/16 03:30 Microcytosis Present (Not Present) A 10/10/16 03:30 Macrocytosis Present (Not Present) A 10/08/16 02:53 PT 15.8 Seconds (9.4-12.1) H 10/12/16 04:00 ABG pH 7.47 pH Units (7.32-7.45) H 10/11/16 08:15 ABG Total CO2 27.3 mEq/L (20-26) H 10/11/16 08:15 Sodium 148 mEq/L (136-145) H 10/13/16 03:41 Potassium 3.4 mEq/L (3.5-4.5) L 10/13/16 03:41 Chloride 113 mEq/L (98-109) H 10/13/16 03:41 BUN 30 mg/dL (7-20) H D 10/13/16 03:41 BUN/Creatinine Ratio 38 (6-26) H 10/13/16 03:41 Glucose 124 mg/dL (70-99) H 10/13/16 03:41 POC Glucose 119 (58-89) H 10/13/16 07:34 Calculated Osmolality 314 (280-300) H 10/13/16 03:41 Uric Acid 10.1 mg/dL (2.6-6.0) H 09/30/16 04:37 Magnesium 1.4 mg/dL (1.6-2.6) L 10/13/16 03:41 Troponin I 0.06 ng/mL (0-0.03) H* 09/28/16 01:00 Albumin 2.5 g/dL (3.5-5.0) L 10/11/16 03:30 Albumin (PEP) 3.57 g/dL (3.75-5.01) L 09/30/16 04:37 Albumin/Globulin Ratio 1.0 (1.1-2.2) L 10/07/16 05:40 Urine Clarity Turbid (Clear) A 09/28/16 18:30 Ur Specific [place] > 1.030 (1.010-1.025) H 09/28/16 18:30 Urine Protein >=1000 mg/dL (Neg-Trace) H 09/28/16 18:30 Urine Glucose (UA) 100 mg/dL (Normal) H 09/28/16 18:30 Urine Ketones Trace mg/dL (Negative) H 09/28/16 18:30 Urine Bilirubin Small (Negative) H 09/28/16 18:30 Ur Leukocyte Esterase Moderate (Negative) H 09/28/16 18:30 Urine Microscopic WBC TNTC per hpf (0-3) H 09/28/16 18:30 Ur Squamous Epith Cells Many per lpf (None-Few) H 09/28/16 18:30 Amorphous Sediment Moderate (Few) H 09/28/16 18:30 Urine Bacteria Moderate per hpf (None-Few) H 09/28/16 18:30 Urine Yeast Few per hpf (None Seen) H 09/28/16 18:30 Ur Culture Indicated? YES (NO) A 09/28/16 18:30 Urine Total Protein 26 mg/dL (1-14) H 09/30/16 11:25 Stool Occult Blood Positive (Negative) A 09/27/16 13:48 Digoxin 2.4 ng/mL (0.8-2.0) H 09/28/16 06:46 - Microbiology Findings Microbiology Findings: Microbiology, Last 48 Hours 10/08/16 01:41 Blood Culture - Final Peripheral Venipuncture Pseudomonas stutzeri 10/10/16 09:07 Blood Culture - Preliminary Peripheral Venipuncture No growth. 10/10/16 07:17 Blood Culture - Preliminary Peripheral Venipuncture No growth. 10/11/16 15:15 Legionella Antigen - Final Urine,[place] 10/11/16 15:15 Streptococcus pneumoniae Antigen (M - Final Urine,[place] - Clinical Findings Intake & Output: Intake & Output 10/12/16 10/12/16 10/13/16 15:59 23:59 07:59 Intake Total 360 / 360 170 / 170 200 / 200 Output Total 675 / 675 400 / 400 500 / 500 Balance -315 / -315 -230 / -230 -300 / -300 Weight 105.097 kg - VTE Documentation of Mechanical Device: Intermittent pneumatic compression device
[2016-10-13] MEDS: Insulin LISPRO 300 UNITS/3 ML VIAL SQ SCH ×4 (08:06→20:22)
[2016-10-13] MEDS: Ferrous Sulfate Oral Soln 300 MG/5 ML UDC PO SCH ×2 (08:07→17:22)
[2016-10-13] MEDS: hydrALAZINE 25 MG TABLET PO SCH ×3 (08:46→23:04)
[2016-10-13] MEDS: Nystatin SUSP 5 ML UD.LIQ PO SCH (08:46)
[2016-10-13] MEDS: Cholecalciferol (D-3) 1,000 UNIT TABLET PO SCH (08:46)
[2016-10-13] MEDS: Chlorhexidine Rinse 15 ML MOUTHWASH MM SCH ×2 (08:46→20:20)
[2016-10-13] MEDS: Aspirin 81 MG TAB.CHEW PO SCH (08:46)
[2016-10-13] MEDS: Pantoprazole 40 MG VIAL IVP SCH (08:52)
[2016-10-13] MEDS: Piperacillin/Tazobactam 3.375 GM in D5% in Water (Mini-Bag+) 100 ML IVPB SCH ×3 (08:52→23:07)
--- NOTE | 2016-10-13 10:20 | Infectious Disease Progress No ---
Date of Encounter: 10/12/16 Time of Encounter: 13:00 - Assessment and Plan (1) Fever Current Visit: Yes Status: Acute resolved. Etiology not clear, possibly due to bacteremia. Afebrile since then. No signs of upper respiratory infection, no signs of pneumonia, no signs of abdominal source, no sign of meningitis. 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 Repeat cultures on 10/10/16 no growth to date Source is not clear since the bacteria is not the same as the urinary tract infection Escherichia coli ESBL. Not sure if it's true infection versus a contaminant Concern for possible GI source if we can't find any other source. cultures still not finalized (3) Bacteremia due to Gram-negative bacteria Current Visit: Yes Status: Acute Secondary to ESBL Escherichia coli Received 11 days worth of antibiotics including ertapenem then switched to Zosyn Urine does not appear grossly infected (4) UTI (urinary tract infection) Current Visit: Yes Status: Acute Urinary tract infection type: acute cystitis Hematuria presence: without hematuria Qualifiers: Urinary tract infection type: acute cystitis Hematuria presence: without hematuria Qualified Code(s): N30.00 - Acute cystitis without hematuria (5) Acute renal injury Current Visit: No Status: Acute (6) Altered mental status Current Visit: Yes Status: Acute Qualifiers: Altered mental status type: coma Coma depth: [place] coma 3-8 Coma timing : 24 hours or more after hospital admission Qualified Code(s): R40.2434 - [place] coma scale score 3-8, 24 hours or more after hospital admission (7) Coumadin toxicity Current Visit: Yes Status: Acute Qualifiers: Encounter type: initial encounter Injury intent: accidental or unintentional Qualified Code(s): T45.511A - Poisoning by anticoagulants, accidental (unintentional), initial encounter (8) Acute GI bleeding Current Visit: Yes Status: Acute (9) Anemia Current Visit: No Status: Acute Qualifiers: Anemia type: other cause Other causes of anemia: acute posthemorrhagic Qualified Code(s): D62 - Acute posthemorrhagic anemia (10) Afib Current Visit: No Status: Chronic Qualifiers: Atrial fibrillation type: paroxysmal Qualified Code(s): I48.0 - Paroxysmal atrial fibrillation - Subjective Interval history: this is a note postdated from 10/12/16; patient was seen and eamined. clinically much improved. She is awake, alert and answering questions. she told me she was taking antidepressants and that she fills her meds at [facility]. Patient s/p extubation and had 2 BM's today. Tube feeding was stopped. denies any pain Infect Dis PN-Objective Data - Labs CBC & Chem 7: 10/13/16 03:41 10/13/16 03:41 Labs: Laboratory Results - last 24 hr 10/12/16 10/12/16 10/12/16 11:33 15:13 19:48 WBC RBC Hgb Hct MCV MCH MCHC RDW Plt Count MPV Immature Gran % Seg Neutrophils % Lymphocytes % Monocytes % Eosinophils % Basophils % Neutrophils # Lymphocytes # Monocytes # Eosinophils # Basophils # Immature Plt Fraction Sodium Potassium Chloride Carbon Dioxide BUN Creatinine Est GFR ( Amer) Est GFR (Non-Af Amer) BUN/Creatinine Ratio Glucose POC Glucose 133 H 139 H 147 H Calculated Osmolality Lactic Acid Calcium Ionized Calcium Phosphorus Magnesium 10/13/16 10/13/16 10/13/16 03:41 03:41 07:34 WBC 14.0 H D RBC 3.36 L Hgb 9.0 L Hct 29.7 L MCV 88.4 MCH 26.8 L MCHC 30.3 L RDW 18.9 H Plt Count 212 D MPV 10.6 Immature Gran % 2.2 Seg Neutrophils % 78.7 Lymphocytes % 11.0 Monocytes % 6.9 Eosinophils % 0.8 Basophils % 0.4 Neutrophils # 11.0 H Lymphocytes # 1.5 Monocytes # 1.0 Eosinophils # 0.1 Basophils # 0.1 Immature Plt Fraction 5.1 Sodium 148 H Potassium 3.4 L Chloride 113 H Carbon Dioxide 26 BUN 30 H D Creatinine 0.78 Est GFR ( Amer) > 60 Est GFR (Non-Af Amer) > 60 BUN/Creatinine Ratio 38 H Glucose 124 H POC Glucose 119 H Calculated Osmolality 314 H Lactic Acid Calcium 9.1 Ionized Calcium 1.20 Phosphorus 3.1 Magnesium 1.4 L 10/13/16 07:54 WBC RBC Hgb Hct MCV MCH MCHC RDW Plt Count MPV Immature Gran % Seg Neutrophils % Lymphocytes % Monocytes % Eosinophils % Basophils % Neutrophils # Lymphocytes # Monocytes # Eosinophils # Basophils # Immature Plt Fraction Sodium Potassium Chloride Carbon Dioxide BUN Creatinine Est GFR ( Amer) Est GFR (Non-Af Amer) BUN/Creatinine Ratio Glucose POC Glucose Calculated Osmolality Lactic Acid 1.2 Calcium Ionized Calcium Phosphorus Magnesium Cultures: Cultures 10/08/16 01:41 Blood Culture - Final Peripheral Venipuncture Pseudomonas stutzeri 10/10/16 09:07 Blood Culture - Preliminary Peripheral Venipuncture No growth. 10/10/16 07:17 Blood Culture - Preliminary Peripheral Venipuncture No growth. 10/11/16 15:15 Legionella Antigen - Final Urine,[place] 10/11/16 15:15 Streptococcus pneumoniae Antigen (M - Final Urine,[place] 10/08/16 01:20 Sputum Culture - Final Sputum 10/08/16 01:20 Urine Culture - Final Urine,Catheterized No growth. 09/28/16 18:30 Urine Culture - Final Urine,Clean Catch Escherichia coli ESBL Serology 10/11/16 10/08/16 09/30/16 Range/Units 15:15 01:41 11:25 Urine Color (Yellow) Urine Clarity (Clear) Urine pH (5.0-8.0) pH Units Ur Specific [place] (1.010-1.025) Urine Protein (Neg-Trace) mg/dL Urine Glucose (UA) (Normal) mg/dL Urine Ketones (Negative) mg/dL Urine Blood (Negative) Urine Nitrite (Negative) Urine Bilirubin (Negative) Urine Urobilinogen (Normal) mg/dL Ur Leukocyte Esterase (Negative) Urine Microscopic RBC (0-3) per hpf Urine Microscopic WBC (0-3) per hpf Ur Squamous Epith Cells (None-Few) per lpf Calcium Oxalate Crystal Amorphous Sediment (Few) Urine Bacteria (None-Few) per hpf Hyaline Casts (None-Few) per lpf Urine Mucus (Few) Urine Yeast (None Seen) per hpf Ur Culture Indicated? (NO) Urine Creatinine 134 mg/dL Protein/Creatinin Ratio 0.19 (0-0.20) mg/mg Urine Sodium mEq/L Urine Total Protein 26 H (1-14) mg/dL A. baumannii (PCR) Not Detected (Not Detect) [place] albicans (PCR) Not Detected (Not Detect) C. glabrata (PCR) Not Detected (Not Detect) C. krusei (PCR) Not Detected (Not Detect) C. parapsilosis (PCR) Not Detected (Not Detect) C. tropicalis (PCR) Not Detected (Not Detect) Enterobacteriac sp PCR Not Detected (Not Detect) E. cloacae complex PCR Not Detected (Not Detect) Enterococcus sp PCR Not Detected (Not Detect) E. coli (PCR) Not Detected (Not Detect) H. influenzae (PCR) Not Detected (Not Detect) HIV Ag/Ab Combo Qual Nonreactive (Nonreactive) Klebsiella oxytoca PCR Not Detected (Not Detect) Klebsiella pneumoniae Not Detected (Not Detect) List. monocytogenes PCR Not Detected (Not Detect) N. meningitidis (PCR) Not Detected (Not Detect) Proteus species (PCR) Not Detected (Not Detect) Serratia marcescens PCR Not Detected (Not Detect) Staphylococcus sp PCR Not Detected (Not Detect) Staph aureus (PCR) Not Detected (Not Detect) mecA-Methicil Res Gene N/A (Not Detect) Streptococcus sp PCR Not Detected (Not Detect) Group A Strep DNA Not Detected (Not Detect) Group B Strep (PCR) Not Detected (Not Detect) Strep pneumoniae (PCR) Not Detected (Not Detect) P. aeruginosa (PCR) Not Detected (Not Detect) [place]/B-Vanco Res Genes N/A (Not Detect) KPC (blaKPC) Detect PCR N/A (Not Detect) 09/30/16 09/28/16 Range/Units 11:25 18:30 Urine Color Dark Yellow (Yellow) Urine Clarity Turbid A (Clear) Urine pH 5.5 (5.0-8.0) pH Units Ur Specific [place] > 1.030 H (1.010-1.025) Urine Protein >=1000 H (Neg-Trace) mg/dL Urine Glucose (UA) 100 H (Normal) mg/dL Urine Ketones Trace H (Negative) mg/dL Urine Blood Negative (Negative) Urine Nitrite Negative (Negative) Urine Bilirubin Small H (Negative) Urine Urobilinogen Normal (Normal) mg/dL Ur Leukocyte Esterase Moderate H (Negative) Urine Microscopic RBC 0-3 (0-3) per hpf Urine Microscopic WBC TNTC H (0-3) per hpf Ur Squamous Epith Cells Many H (None-Few) per lpf Calcium Oxalate Crystal Present Amorphous Sediment Moderate H (Few) Urine Bacteria Moderate H (None-Few) per hpf Hyaline Casts Few (None-Few) per lpf Urine Mucus Few (Few) Urine Yeast Few H (None Seen) per hpf Ur Culture Indicated? YES A (NO) Urine Creatinine mg/dL Protein/Creatinin Ratio (0-0.20) mg/mg Urine Sodium 33.0 mEq/L Urine Total Protein (1-14) mg/dL A. baumannii (PCR) (Not Detect) [place] albicans (PCR) (Not Detect) C. glabrata (PCR) (Not Detect) C. krusei (PCR) (Not Detect) C. parapsilosis (PCR) (Not Detect) C. tropicalis (PCR) (Not Detect) Enterobacteriac sp PCR (Not Detect) E. cloacae complex PCR (Not Detect) Enterococcus sp PCR (Not Detect) E. coli (PCR) (Not Detect) H. influenzae (PCR) (Not Detect) HIV Ag/Ab Combo Qual (Nonreactive) Klebsiella oxytoca PCR (Not Detect) Klebsiella pneumoniae (Not Detect) List. monocytogenes PCR (Not Detect) N. meningitidis (PCR) (Not Detect) Proteus species (PCR) (Not Detect) Serratia marcescens PCR (Not Detect) Staphylococcus sp PCR (Not Detect) Staph aureus (PCR) (Not Detect) mecA-Methicil Res Gene (Not Detect) Streptococcus sp PCR (Not Detect) Group A Strep DNA (Not Detect) Group B Strep (PCR) (Not Detect) Strep pneumoniae (PCR) (Not Detect) P. aeruginosa (PCR) (Not Detect) [place]/B-Vanco Res Genes (Not Detect) KPC (blaKPC) Detect PCR (Not Detect) Exam - Constitutional Vitals: Temp Pulse Resp BP Pulse Ox 97.6 F 89 19 175/82 97 10/13/16 07:47 10/13/16 09:00 10/13/16 09:00 10/13/16 07:00 10/13/16 09:00 General appearance: no acute distress, no febrile - Head Head exam: Present: atraumatic, normocephalic - Respiratory Respiratory exam: Present: rales, rhonchi - Cardiovascular Cardiovascular exam: Present: RRR, +S1, +S2 - GI/Abdominal GI/Abdominal exam: Present: soft. Absent: rebound, tenderness - Extremities Exam Extremities exam: Present: normal inspection. Absent: pedal edema - Neurological Exam Neurological exam: Present: alert, oriented X3 - Skin Skin exam: Absent: rash - VTE Documentation of Mechanical Device: Intermittent pneumatic compression device Consult Discharge Plan - Plan Referrals: Ward Mcmanus MD [Primary Care Provider] - 10/08/16 2:00 pm () Eleni Edge CNP [Partnered Physician] - 10/12/16 8:45 am (in [place] office )
[2016-10-13] MEDS ORDERED: D5% in 0.45% NACL 1,000 ML IVC SCH ×2 (12:00→15:29)
[2016-10-13 13:03] LABS: Basophils # 0.1 K/mcL (0.0-0.2); Basophils % 0.4 %; Eosinophils # 0.1 K/mcL (0.0-0.6); Eosinophils % 0.7 %; Hematocrit 31.9 % (35.3-44.9); Hemoglobin 9.7 g/dL (11.5-15.4); Immature Granulocytes % 1.9 % (0-4); Lymphocytes # 1.7 K/mcL (0.6-4.6); Lymphocytes % 8.5 %; Mean Corpuscular HGB Conc 30.4 g/dL (31.6-35.5); Mean Corpuscular Hemoglobin 26.9 pg (28.0-33.3); Mean Corpuscular Volume 88.4 fL (83.0-100.0); Mean Platelet Volume 11.2 fL (9.4-12.4); Monocytes # 1.1 K/mcL (0.0-1.3); Monocytes % 5.5 %; Neutrophils # 16.1 K/mcL (1.6-8.9); Nucleated Red Blood Cells 0.1 /100 WBC (0); Platelet Count 262 K/mcL (140-400); Red Blood Count 3.61 M/mcL (3.82-4.97); Red Cell Distribution Width 19.4 % (11.5-14.5)
[2016-10-13] MEDS ORDERED: Naloxone 0.4 MG/ML INJ IVP PRN (15:29)
[2016-10-13] MEDS ORDERED: Lacri-Lube 3.5 GM TUBE BOTH EYES PRN (15:29)
[2016-10-13] MEDS ORDERED: *HR* Metoprolol 5 MG/5 ML VIAL IVP PRN (15:29)
[2016-10-13] MEDS ORDERED: Acetaminophen 650 MG RECTAL SUPP RC PRN (15:29)
[2016-10-13] MEDS ORDERED: *HR* Morphine 2 MG/ML SYRINGE IVP PRN (15:29)
[2016-10-13] MEDS ORDERED: Dextrose Gel 15 GM PO PRN ×2 (15:29)
[2016-10-13] MEDS ORDERED: Acetaminophen 325 MG TABLET PO PRN (15:29)
[2016-10-13] MEDS ORDERED: D5% in Water 1,000 ML IVC PRN (15:29)
[2016-10-13] MEDS ORDERED: *HR* Dextrose 50 % in Water (Syg) 50 ML SYRINGE IVP PRN (15:29)
--- NOTE | 2016-10-13 16:33 | Consult Note ---
Date of Encounter: 10/13/16 Time of Encounter: 16:31 Assessment & Recommendation (1) Depression Current visit: Yes Status: Acute Assessment & Recommendation: Client was agitated and having difficulty breathing at time of assessment. Daughter at bedside and she provided most of the history. She reported her mother was started on Celexa when her sister and that she has been on this medication for years. Her daughter adamantly denied her mother has ever been suicidal but did report she never found the Celexa particularly helpful. Would not recommend starting it back up at this time. She did say her mother is not back to her baseline as far as her cognitive function. When this television writer was in the room her mother was having difficulty speaking and she could not engage. Minimal eye contact. Unable to attend to questions. Agitated. Picking at clothes and medical devices such as the blood pressure cuff, IV, and oxygen mask. Looked more delirious then anything. Suspect she has altered mental status more than depression at the moment. May ultimately need treated for depression but would hold off on introducing anything new until delirium has resolved. Not sure what all she has received to help with her agitation up to this point. If not on anything now would recommend starting a low dose antipsychotic. Haldol can be given IV and is good for delirium. Would avoid benzodiazepines and anything antichoinergic if they can be avoided. Recommend telemetry if getting Haldol IV. Would start with a low dose like 2.5mg and titrate up as needed. Once she is clear can reevaluate for depression. Qualifiers: Depression Type: major depressive disorder Major depression recurrence: recurrent Active/Remission status: currently active Major depression episode severity: moderate Qualified Code(s): F33.1 - Major depressive disorder, recurrent, moderate History of Present Illness Requesting Physician: Michael Nicole MD Reason for consult: history of depression History of present illness: Ms. Hernández is a 65 year old female CC: Michael Nicole MD Past Med Surg Social Fam HX - Past Medical History Medical history: asthma, cancer, CHF, diabetes, GI bleed, hyperlipidemia, hypertension - Past Psychiatric History Psychiatric history: Reports: depression - Past Surgical History Surgical History: appendectomy, breast surgery, coronary bypass (CABG) - Social History Smoking Status: Former smoker Smokeless Tobacco Status: No Alcohol use: none Drug use: none - Family History Father Adopted: No Family Member Ethnicity: Non- Living Status: Hx Family Cardiac Disorders: Yes Hx Family Respiratory Disorders: Yes Hx Family Cancer: Yes (Liver cancer) Hx Family GI Disorders: No Hx Family Endocrine Disorder: Yes Hx Family Neuromuscular Disorders: No Hx Family Neurologic Disorders: No Hx Family HEENT Disorders: No Hx Family Autoimmune Disorders: No Medications & Allergies Cholecalciferol (D-3) [Vitamin D] 2,000 unit PO DAILY 04/18/16 [History] Diphenoxylate/Atropine [Lomotil 2.5 mg/0.025 mg] 1 tab PO BID PRN 04/18/16 [ History] Gabapentin [Neurontin] 900 mg PO HS 04/18/16 [History] Losartan/Hydrochlorothiazide [Hyzaar 100-12.5 Tablet] 1 tab PO DAILY 04/18/16 [ History] Metformin HCl [Metformin HCl ER] 500 mg PO BID 04/18/16 [History] Aspirin Enteric Coated [Aspirin EC] 81 mg PO DAILY #30 tablet. 06/14/16 [Rx] Digoxin [Lanoxin] 0.125 mg PO DAILY #30 tablet 06/14/16 [Rx] Citalopram Hydrobromide [Celexa] 30 mg PO DAILY 07/23/16 [History] Metoprolol Succinate 200 mg PO BID 07/23/16 [History] Warfarin [Coumadin] 2 mg PO SUFR 07/23/16 [History] Warfarin [Coumadin] 4 mg PO MOTUWETHSA 07/23/16 [History] Diltiazem CD (24hr) [Cardizem CD] 120 mg PO DAILY #30 cap.er.24h 07/26/16 [Rx] Ferrous Sulfate 325 mg PO BIDWM #30 tablet 09/10/16 [Rx] Albuterol Sulfate [Albuterol Inhaler] 2 puff IH Q4H PRN 09/27/16 [History] Amoxicillin [Amoxil] 500 mg PO QID 09/27/16 [History] Atorvastatin Calcium [Lipitor] 20 mg PO HS 09/27/16 [History] Clarithromycin [Biaxin] 500 mg PO BID 09/27/16 [History] Fluticasone/Salmeterol [Advair Hfa 230-21 Mcg Inhaler] 2 puff IH BID 09/27/16 [ History] Pantoprazole Sodium [Protonix] 40 mg PO BID 09/27/16 [History] Allergies No Known Allergies Allergy (Verified 06/12/16 09:27) Review of Systems Constitutional: Reports: weakness. Denies: fever, chills, weight change Eyes: Denies: eye pain, vision change Ears, Nose, Throat: Denies: ear pain, throat pain, dental pain, hearing loss, congestion Cardiovascular: Reports: orthopnea Respiratory: Reports: dyspnea Gastrointestinal: Reports: abdominal pain Genitourinary male: Denies: urgency, dysuria, frequency, genital lesions Genitourinary female: Denies: urgency, dysuria, frequency, abnormal menses, dyspareunia Musculoskeletal: Reports: myalgia Integumentary: Denies: rash, lesions, pruritus Neurological: Reports: weakness, confusion Endocrine: Denies: fatigue, heat or cold intolerance Hematologic/Lymphatic: Reports: easy bleeding Allergic/Immunologic: Denies: urticaria, itchy eyes Mental Status Exam Patient orientation: Yes Other Level of alertness: Sedated Patient appearance: Unkempt Behavior: agitated, restless, uncooperative Psychomotor activity: Agitated Eye contact: Fleeting Contact Mood description: Anxious Affect description: congruent with mood Speech pattern: Limited, Mumbled Speech volume: Soft/Quiet Thought process: Slowed Thinking Thought content: No Suicidal ideation, No Homicidal ideation, No Overt delusions Perceptual disturbances: No Auditory hallucinations, No Visual hallucinations Attention span: Unable to Focus, Unable to Sustain Attention Memory description: Immediate Impaired Patient reliability: Not Reliable Historian Intelligence estimate: Average Judgment: Poor Insight: Minimal Results - Vital Signs Vital signs: Temp Pulse Resp BP Pulse Ox 97.3 F L 101 16 182/100 95 10/13/16 15:15 10/13/16 15:33 10/13/16 16:24 10/13/16 15:15 10/13/16 16:24 - Labs Labs: Laboratory Last Values WBC 19.4 K/mcL (4.3-11.1) H 10/13/16 12:33 RBC 3.61 M/mcL (3.82-4.97) L 10/13/16 12:33 Hgb 9.7 g/dL (11.5-15.4) L 10/13/16 12:33 Hct 31.9 % (35.3-44.9) L 10/13/16 12:33 MCV 88.4 fL (83.0-100.0) 10/13/16 12:33 MCH 26.9 pg (28.0-33.3) L 10/13/16 12: MCHC 30.4 g/dL (31.6-35.5) L 10/13/16 12:33 RDW 19.4 % (11.5-14.5) H 10/13/16 12:33 Plt Count 262 K/mcL (140-400) 10/13/16 12:33 MPV 11.2 fL (9.4-12.4) 10/13/16 12:33 Immature Gran % 1.9 % (0-4) 10/13/16 12:33 Seg Neutrophils % 83.0 % 10/13/16 12: Band Neutrophils % 6.0 % (0-4) H 10/12/16 04:00 Lymphocytes % 8.5 % 10/13/16 12:33 Monocytes % 5.5 % 10/13/16 12:33 Eosinophils % 0.7 % 10/13/16 12:33 Basophils % 0.4 % 10/13/16 12:33 Neutrophils # 16.1 K/mcL (1.6-8.9) H 10/13/16 12:33 Lymphocytes # 1.7 K/mcL (0.6-4.6) 10/13/16 12:33 Monocytes # 1.1 K/mcL (0.0-1.3) 10/13/16 12:33 Eosinophils # 0.1 K/mcL (0.0-0.6) 10/13/16 12:33 Basophils # 0.1 K/mcL (0.0-0.2) 10/13/16 12:33 Nucleated RBCs/100 WBC 0.1 /100 WBC (0) H 10/13/16 12:33 Reactive Lymphocytes Present (Not Present) A 10/12/16 04:00 Platelet Estimate Normal (Normal) 10/12/16 04:00 Immature Plt Fraction 5.1 % (1.1-6.1) 10/13/16 03:41 Polychromasia 1+ (Not Present) A 10/08/16 02:53 Basophilic Stippling 1+ (Not Present) A 10/08/16 02:53 Anisocytosis 1+ (Not Present) A 10/11/16 03:30 Microcytosis Present (Not Present) A 10/10/16 03:30 Macrocytosis Present (Not Present) A 10/08/16 02:53 PT 15.8 Seconds (9.4-12.1) H 10/12/16 04:00 INR 1.5 10/12/16 04:00 APTT 33.3 Seconds (26.0-36.0) 10/04/16 13:23 ABG pH 7.47 pH Units (7.32-7.45) H 10/11/16 08:15 ABG pCO2 36 mmHg (35-45) 10/11/16 08:15 ABG pO2 94 mmHg (85-104) 10/11/16 08:15 ABG HCO3 26.2 mEQ/L (21-27) 10/11/16 08:15 ABG Total CO2 27.3 mEq/L (20-26) H 10/11/16 08:15 ABG O2 Saturation 98 % (95-98) 10/11/16 08:15 ABG Base Excess 2.5 mEq/L (-2.0 to 3.0) 10/11/16 08:15 Respiration Rate 12 10/03/16 05:42 Blood Gas Modality CPAP 10/11/16 08:15 Inspired O2 30 % 10/11/16 08:15 Tidal Volume 500 cc 10/03/16 05:42 PEEP 5 cm H2O 10/03/16 05:42 Sodium 148 mEq/L (136-145) H 10/13/16 03:41 Potassium 3.4 mEq/L (3.5-4.5) L 10/13/16 03:41 Chloride 113 mEq/L (98-109) H 10/13/16 03:41 Carbon Dioxide 26 mEq/L (19-29) 10/13/16 03:41 BUN 30 mg/dL (7-20) H D 10/13/16 03:41 Creatinine 0.78 mg/dL (0.57-1.11) 10/13/16 03:41 Est GFR ( Amer) > 60 (> 60) 10/13/16 03:41 Est GFR (Non-Af Amer) > 60 (> 60) 10/13/16 03:41 BUN/Creatinine Ratio 38 (6-26) H 10/13/16 03:41 Glucose 124 mg/dL (70-99) H 10/13/16 03:41 POC Glucose 135 (58-89) H 10/13/16 16:00 Calculated Osmolality 314 (280-300) H 10/13/16 03:41 Lactic Acid 1.2 mmol/L (0.5-2.2) 10/13/16 07:54 Uric Acid 10.1 mg/dL (2.6-6.0) H 09/30/16 04:37 Calcium 9.1 mg/dL (8.6-10.8) 10/13/16 03:41 Ionized Calcium 1.20 mmol/L (1.15-1.35) 10/13/16 03:41 Phosphorus 3.1 mg/dL (2.3-4.7) 10/13/16 03:41 Magnesium 1.4 mg/dL (1.6-2.6) L 10/13/16 03:41 Total Bilirubin 0.2 mg/dL (0.2-1.2) 10/07/16 05:40 AST 17 Units/L (5-34) 10/07/16 05:40 ALT 11 Units/L (0-55) 10/07/16 05:40 Alkaline Phosphatase 65 Units/L (38-126) 10/07/16 05:40 Ammonia 23 mcmol/L (18-72) 10/09/16 10:05 Creatine Kinase 55 Units/L (29-168) 09/30/16 04:37 Troponin I 0.06 ng/mL (0-0.03) H* 09/28/16 01:00 Prot Electrophor EER SEE NOTE 09/30/16 04:37 Serum Total Protein 6.3 g/dL (6.0-8.3) 10/07/16 05:40 Total Protein (PEP) 6.50 g/dL (6.00-8.30) 09/30/16 04:37 Albumin 2.5 g/dL (3.5-5.0) L 10/11/16 03:30 Albumin (PEP) 3.57 g/dL (3.75-5.01) L 09/30/16 04:37 Globulin 3.2 g/dL (2.4-3.5) 10/07/16 05:40 Albumin/Globulin Ratio 1.0 (1.1-2.2) L 10/07/16 05:40 Ybmdy-6-Ruxeyzhtm 0.41 g/dL (0.19-0.46) 09/30/16 04:37 Fskiv-1-Unbcwulzo 0.79 g/dL (0.48-1.05) 09/30/16 04:37 Beta Globulins 0.94 g/dL (0.48-1.10) 09/30/16 04:37 Gamma Globulins 0.80 g/dL (0.62-1.51) 09/30/16 04:37 PEP Interpretation SEE NOTE 09/30/16 04:37 Serum Immunofix Reflex NOT DONE 09/30/16 04:37 Urine Color Dark Yellow (Yellow) 09/28/16 18:30 Urine Clarity Turbid (Clear) A 09/28/16 18:30 Urine pH 5.5 pH Units (5.0-8.0) 09/28/16 18:30 Ur Specific [place] > 1.030 (1.010-1.025) H 09/28/16 18:30 Urine Protein >=1000 mg/dL (Neg-Trace) H 09/28/16 18:30 Urine Glucose (UA) 100 mg/dL (Normal) H 09/28/16 18:30 Urine Ketones Trace mg/dL (Negative) H 09/28/16 18:30 Urine Blood Negative (Negative) 09/28/16 18:30 Urine Nitrite Negative (Negative) 09/28/16 18:30 Urine Bilirubin Small (Negative) H 09/28/16 18:30 Urine Urobilinogen Normal mg/dL (Normal) 09/28/16 18:30 Ur Leukocyte Esterase Moderate (Negative) H 09/28/16 18:30 Urine Microscopic RBC 0-3 per hpf (0-3) 09/28/16 18:30 Urine Microscopic WBC TNTC per hpf (0-3) H 09/28/16 18:30 Ur Squamous Epith Cells Many per lpf (None-Few) H 09/28/16 18:30 Calcium Oxalate Crystal Present 09/28/16 18:30 Amorphous Sediment Moderate (Few) H 09/28/16 18:30 Urine Bacteria Moderate per hpf (None-Few) H 09/28/16 18:30 Hyaline Casts Few per lpf (None-Few) 09/28/16 18:30 Urine Mucus Few (Few) 09/28/16 18:30 Urine Yeast Few per hpf (None Seen) H 09/28/16 18:30 Ur Culture Indicated? YES (NO) A 09/28/16 18:30 Urine Creatinine 134 mg/dL 09/30/16 11:25 Protein/Creatinin Ratio 0.19 mg/mg (0-0.20) 09/30/16 11:25 Urine Sodium 33.0 mEq/L 09/30/16 11:25 Urine Total Protein 26 mg/dL (1-14) H 09/30/16 11:25 Stool Occult Blood Positive (Negative) A 09/27/16 13:48 Vancomycin Trough 12.8 mcg/mL (10-20) 10/10/16 06:00 Digoxin 2.4 ng/mL (0.8-2.0) H 09/28/16 06:46 Phenytoin 17.8 mcg/mL (10-20) 10/11/16 03:30 IgG TNP 09/30/16 04:37 IgA TNP 09/30/16 04:37 IgM TNP 09/30/16 04:37 GERARDO Screen NONE DETECTED (None Detected) 09/30/16 04:37 A. baumannii (PCR) Not Detected (Not Detect) 10/08/16 01:41 Lorraine albicans (PCR) Not Detected (Not Detect) 10/08/16 01:41 C. glabrata (PCR) Not Detected (Not Detect) 10/08/16 01:41 C. krusei (PCR) Not Detected (Not Detect) 10/08/16 01:41 C. parapsilosis (PCR) Not Detected (Not Detect) 10/08/16 01:41 C. tropicalis (PCR) Not Detected (Not Detect) 10/08/16 01:41 Enterobacteriac sp PCR Not Detected (Not Detect) 10/08/16 01:41 E. cloacae complex PCR Not Detected (Not Detect) 10/08/16 01:41 Enterococcus sp PCR Not Detected (Not Detect) 10/08/16 01:41 E. coli (PCR) Not Detected (Not Detect) 10/08/16 01:41 H. influenzae (PCR) Not Detected (Not Detect) 10/08/16 01:41 HIV Ag/Ab Combo Qual Nonreactive (Nonreactive) 10/11/16 15:15 Klebsiella oxytoca PCR Not Detected (Not Detect) 10/08/16 01:41 Klebsiella pneumoniae Not Detected (Not Detect) 10/08/16 01:41 List. monocytogenes PCR Not Detected (Not Detect) 10/08/16 01:41 N. meningitidis (PCR) Not Detected (Not Detect) 10/08/16 01:41 Proteus species (PCR) Not Detected (Not Detect) 10/08/16 01:41 Serratia marcescens PCR Not Detected (Not Detect) 10/08/16 01:41 Staphylococcus sp PCR Not Detected (Not Detect) 10/08/16 01:41 Staph aureus (PCR) Not Detected (Not Detect) 10/08/16 01:41 mecA-Methicil Res Gene N/A (Not Detect) 10/08/16 01:41 Streptococcus sp PCR Not Detected (Not Detect) 10/08/16 01:41 Group A Strep DNA Not Detected (Not Detect) 10/08/16 01:41 Group B Strep (PCR) Not Detected (Not Detect) 10/08/16 01:41 Strep pneumoniae (PCR) Not Detected (Not Detect) 10/08/16 01:41 P. aeruginosa (PCR) Not Detected (Not Detect) 10/08/16 01:41 [place]/B-Vanco Res Genes N/A (Not Detect) 10/08/16 01:41 KPC (blaKPC) Detect PCR N/A (Not Detect) 10/08/16 01:41 Blood Type O POSITIVE 09/27/16 13:07 Antibody Screen NEGATIVE 09/27/16 13:07 Crossmatch See Detail 09/27/16 13:07 Consult Discharge Plan - Plan Referrals: Ward Mcmanus MD [Primary Care Provider] - 10/08/16 2:00 pm () Eleni Edge CNP [Partnered Physician] - 10/12/16 8:45 am (in [place] office )
[2016-10-13] MEDS: *HR* LORazepam 2 MG/ML VIAL IVP PRN ×2 (18:18→20:24)
[2016-10-13] MEDS ORDERED: Melatonin 3 MG TABLET PO SCH (21:00)
[2016-10-13] MEDS ORDERED: Furosemide 40 MG/4 ML VIAL IVP ONE (21:11)
[2016-10-13] MEDS ORDERED: Furosemide 40 MG/4 ML VIAL ONE (21:13)
[2016-10-14] MEDS: Ipratropium/Albuterol Neb 3 ML IH SCH ×6 (00:02→20:59)
[2016-10-14 00:12] LABS: ABG Base Excess 7.1 mEq/L (-2.0 to 3.0); ABG HCO3 29.7 mEQ/L (21-27); ABG Oxygen Saturation 96 % (95-98); ABG PCO2 34 mmHg (35-45); ABG PH 7.55 pH Units (7.32-7.45); ABG PO2 73 mmHg (85-104); ABG TCO2 30.7 mEq/L (20-26); Blood Gas Liter Flow 3.5 L/MIN
[2016-10-14] MEDS: *HR* LORazepam 2 MG/ML VIAL IVP PRN ×2 (00:22→10:49)
--- NOTE | 2016-10-14 00:31 | Event Note ---
Date of Encounter: 10/14/16 Time of Encounter: 00:10 Called to see patient for concerns of respiratory distress. Pt sleeping, tachypneic, but otherwise in NAD. Vitals stable otherwise. Pt lungs with rhonchi, but with good bilateral air movement. Pt responds to loud verbal commands and to painful stimuli (? baseline). CXR and ABG reviewed. Suspect toxic metabolic encephalopathy. Patient did have > 2 L urine output with IV lasix administered tonight. Will watch closely and reassess as necessary.
[2016-10-14 05:21] LABS: Basophils % 0.4 %; Eosinophils # 0.1 K/mcL (0.0-0.6); Eosinophils % 0.8 %; Hematocrit 28.2 % (35.3-44.9); Hemoglobin 8.5 g/dL (11.5-15.4); Immature Granulocytes % 1.7 % (0-4); Lymphocytes # 1.6 K/mcL (0.6-4.6); Mean Corpuscular HGB Conc 30.1 g/dL (31.6-35.5); Mean Corpuscular Hemoglobin 26.4 pg (28.0-33.3); Mean Corpuscular Volume 87.6 fL (83.0-100.0); Mean Platelet Volume 10.6 fL (9.4-12.4); Monocytes # 0.7 K/mcL (0.0-1.3); Monocytes % 6.7 %; Neutrophils # 8.2 K/mcL (1.6-8.9); Platelet Count 213 K/mcL (140-400); Red Blood Count 3.22 M/mcL (3.82-4.97); Red Cell Distribution Width 19.5 % (11.5-14.5); Segmented Neutrophils % 75.4 %
[2016-10-14 05:38] LABS: BUN/Creatinine Ratio 29 (6-26); Blood Urea Nitrogen 22 mg/dL (7-20); Calcium 8.9 mg/dL (8.6-10.8); Carbon Dioxide 26 mEq/L (19-29); Chloride 112 mEq/L (98-109); Glucose 109 mg/dL (70-99); Magnesium 1.3 mg/dL (1.6-2.6); Osmolality,Calculated 314 (280-300); Phosphorous 2.9 mg/dL (2.3-4.7); Potassium 3.2 mEq/L (3.5-4.5); Sodium 150 mEq/L (136-145); eGFR For African Americans > 60 (> 60); eGFR For Non-African Americans > 60 (> 60)
[2016-10-14] MEDS: *HR* Enoxaparin 40 MG/0.4 ML SYRINGE SQ SCH (06:26)
[2016-10-14] MEDS: Pantoprazole 40 MG VIAL IVP SCH (08:56)
[2016-10-14] MEDS: Chlorhexidine Rinse 15 ML MOUTHWASH MM SCH ×2 (08:56→21:21)
[2016-10-14] MEDS: Aspirin 81 MG TAB.CHEW PO SCH (08:56)
[2016-10-14] MEDS: hydrALAZINE 25 MG TABLET PO SCH ×2 (08:56→16:16)
[2016-10-14] MEDS: Cholecalciferol (D-3) 1,000 UNIT TABLET PO SCH (08:56)
[2016-10-14] MEDS: Ferrous Sulfate Oral Soln 300 MG/5 ML UDC PO SCH ×2 (08:56→16:16)
[2016-10-14] MEDS: Piperacillin/Tazobactam 3.375 GM in D5% in Water (Mini-Bag+) 100 ML IVPB SCH ×2 (08:57→16:16)
[2016-10-14] MEDS ORDERED: Sodium Phosphate 30 MMOL in D5% in Water 100 ML IVPB PRN (09:20)
[2016-10-14] MEDS: Insulin LISPRO 300 UNITS/3 ML VIAL SQ SCH ×4 (09:30→21:16)
[2016-10-14] MEDS: Calcium Gluconate 1,000 MG in D5% in Water 100 ML IVPB PRN (10:50)
[2016-10-14] MEDS: Magnesium Sulfate 2 GM in D5% in Water 100 ML IVPB PRN ×2 (11:23→21:23)
[2016-10-14] MEDS: Furosemide 240 MG in D5% in Water 96 ML IVC SCH (16:00)
[2016-10-14 16:46] LABS: Basophils % 0.3 %; Eosinophils # 0.2 K/mcL (0.0-0.6); Eosinophils % 2.2 %; Hematocrit 27.2 % (35.3-44.9); Hemoglobin 8.3 g/dL (11.5-15.4); Immature Granulocytes % 1.4 % (0-4); Lymphocytes # 1.5 K/mcL (0.6-4.6); Lymphocytes % 20.9 %; Mean Corpuscular HGB Conc 30.5 g/dL (31.6-35.5); Mean Corpuscular Hemoglobin 26.6 pg (28.0-33.3); Mean Corpuscular Volume 87.2 fL (83.0-100.0); Mean Platelet Volume 10.3 fL (9.4-12.4); Monocytes # 0.6 K/mcL (0.0-1.3); Monocytes % 8.3 %; Neutrophils # 4.8 K/mcL (1.6-8.9); Platelet Count 204 K/mcL (140-400); Red Blood Count 3.12 M/mcL (3.82-4.97); Red Cell Distribution Width 19.9 % (11.5-14.5); Segmented Neutrophils % 66.9 %
[2016-10-14 17:00] LABS: BUN/Creatinine Ratio 27 (6-26); Blood Urea Nitrogen 21 mg/dL (7-20); Calcium 9.1 mg/dL (8.6-10.8); Carbon Dioxide 27 mEq/L (19-29); Chloride 112 mEq/L (98-109); Glucose 119 mg/dL (70-99); Magnesium 1.7 mg/dL (1.6-2.6); Osmolality,Calculated 314 (280-300); Phosphorous 4.1 mg/dL (2.3-4.7); Potassium 3.6 mEq/L (3.5-4.5); Sodium 150 mEq/L (136-145); eGFR For African Americans > 60 (> 60); eGFR For Non-African Americans > 60 (> 60)
[2016-10-14 17:10] LABS: Ionized Calcium 1.24 mmol/L (1.15-1.35)
--- NOTE | 2016-10-14 17:25 | Internal Med Progress Note ---
Date of Encounter: 10/14/16 Time of Encounter: 12:30 - Assessment and plan (1) Toxic metabolic encephalopathy Current Visit: Yes Status: Acute Assessment and plan: Patient is somnolent with episodes of delirium. Continue Seroquel at bedtime and Haldol when necessary. Will avoid benzodiazepines. Hold Celexa at bedtime. Appreciate psychiatry input. (2) Bacteremia Current Visit: Yes Status: Acute Assessment and plan: Pseudomonas stutzeri Bacteremia. History of ESBL UTI 09/28. Blood cultures from 10/08/16 grew Pseudomonas stutzeri Repeat cultures from 10/10/16 show NGTD. Clinically slowly improving. Remains afebrile since 10/08 and WBC is normal. Continue Zosyn. Appreciate ID recommendations. (3) Acute respiratory failure with hypoxia Current Visit: Yes Status: Acute Assessment and plan: Secondary to poor respiratory effort due to metabolic encephalopathy and suspected pulmonary edema likely from fluid resuscitation. Patient required mechanical ventilation on admission and was successfully extubated 10/12. speech therapy consulted and recommends puree diet CXR 10/11/16, no obvious pneumonia CXR 10/13 shows cardiomegaly with vascular congestion and moderate right pleural effusion, increasing airspace disease in right lower lung. Clinically slowly improving, continues to do well on 3L NC. Start Lasix drip. Repeat BMP this evening. Continue nebulizations. (4) Anemia Current Visit: No Status: Acute Assessment and plan: Patient presented with hemoglobin of 6.4 on admission 09/27. Acute blood loss anemia secondary to GI bleed in the setting of supratherapeutic INR at 5. Coumadin held. Patient was transfused with 3 units of packed red blood cells and 1 FFP. Hemoglobin is stable at 8.3. Qualifiers: Anemia type: other cause Other causes of anemia: acute posthemorrhagic Qualified Code(s): D62 - Acute posthemorrhagic anemia (5) Acute worsening of stage 3 chronic kidney disease Current Visit: Yes Status: Acute Assessment and plan: Secondary to acute blood loss anemia. Improved. Close monitoring. Avoid nephrotoxic agents as possible (6) LA thrombus Current Visit: Yes Status: Acute Assessment and plan: Patient with known atrial flutter with COSTA thrombus. Holding anticoagulation due to multiple episodes of acute anemia. Patient and family aware of high risk for CVA. 09/27/16 now she presents with weakness and bright red blood per rectum. Hemoglobin 6.4. INR supratherapeutic at 5. She was transfused with 3 units PRBC, 1 FFP and vitamin K. 09/07/16 hospitalized for acute anemia, Hgb 5.7. She was transfused with 3 units PRBC and underwent EGD/colonoscopy which was negative for active bleeding (2 non -bleeding polyps were removed). By discharge, she was re-started on coumadin with lovenox bridging. (7) Atrial fibrillation and flutter Current Visit: Yes Status: Resolved Assessment and plan: Patient with known history of poorly-controlled atrial flutter. He is not a candidate for rhythm control strategy due to COSTA thrombus. Patient takes digoxin and Cardizem at home. Appreciate cardiology input. Continue metoprolol. Discontinue digoxin and Cardizem at discharge. (8) Diabetes mellitus type 2, noninsulin dependent Current Visit: No Status: Chronic Assessment and plan: I will equate Accu-Cheks. Continue sliding scale, diabetic diet. (9) Chronic blood loss anemia Current Visit: No Status: Acute Assessment and plan: plann as above. - Subjective Interval history: patient is sleeping, she just received ativan an hour ago. Her daughter is at bedside and reports the patient was fully awake yesterday evening but overnight was confused and received ativan. - Constitutional Vitals: Temp Pulse Resp BP Pulse Ox 99.0 F 88 20 139/64 100 10/14/16 17:00 10/14/16 17:00 10/14/16 17:00 10/14/16 17:00 10/14/16 17:00 Exam: pt is sleeping but moves her extremities to verbal stimuli and open her eyes briefly. - Respiratory Respiratory exam: Present: rhonchi - Cardiovascular Cardiovascular exam: Present: irregular rhythm - GI/Abdominal GI/Abdominal exam: Present: soft. Absent: distended, tenderness - Extremities Exam Extremities exam: Present: pedal edema (2+ Le edema) - Back Exam Back exam: Absent: CVA tenderness (L), CVA tenderness (R) - Neurological Exam Neurological exam: Absent: facial droop, speech deficit Internal Medicine: Result - Labs CBC & Chem 7: 10/14/16 16:15 10/14/16 16:15 Labs: Short CBC 10/14/16 10/14/16 Range/Units 04:20 16:15 WBC 10.8 7.1 (4.3-11.1) K/mcL Hgb 8.5 L 8.3 L (11.5-15.4) g/dL Hct 28.2 L 27.2 L (35.3-44.9) % Plt Count 213 204 (140-400) K/mcL Neutrophils # 8.2 4.8 (1.6-8.9) K/mcL BMP 10/14/16 10/14/16 04:20 16:15 Sodium 150 H 150 H Potassium 3.2 L 3.6 Chloride 112 H 112 H Carbon Dioxide 26 27 BUN 22 H 21 H Creatinine 0.75 0.79 Glucose 109 H 119 H Calcium 8.9 9.1 - ABG Interpretation ABG results: ABG ABG pH 7.55 pH Units (7.32-7.45) H 10/13/16 23:53 ABG pCO2 34 mmHg (35-45) L 10/13/16 23:53 ABG pO2 73 mmHg (85-104) L 10/13/16 23:53 ABG O2 Saturation 96 % (95-98) 10/13/16 23:53 PT/INR, D-dimer PT 15.8 Seconds (9.4-12.1) H 10/12/16 04:00 - Impressions Impressions Chest X-Ray 10/13/16 23:36 IMPRESSION: Cardiomegaly with vascular congestion and moderate right pleural effusion. Increasing airspace disease right lower lung. D/ / Ankur Bashir MD / Ankur Bashir MD Interpreting Provider: Ankur Bashir MD - VTE Documentation of Mechanical Device: Intermittent pneumatic compression device Consult Discharge Plan - Plan Referrals: Ward Mcmanus MD [Primary Care Provider] - 10/21/16 2:00 pm () Eleni Edge CNP [Partnered Physician] - 10/12/16 8:45 am (in [place] office )
[2016-10-14] MEDS ORDERED: Haloperidol Lactate 5 MG/ML VIAL IVP PRN (17:31)
[2016-10-15] MEDS: hydrALAZINE 25 MG TABLET PO SCH ×3 (00:29→16:42)
[2016-10-15] MEDS: Piperacillin/Tazobactam 3.375 GM in D5% in Water (Mini-Bag+) 100 ML IVPB SCH ×4 (00:29→23:59)
[2016-10-15] MEDS: Ipratropium/Albuterol Neb 3 ML IH SCH ×6 (00:59→20:22)
[2016-10-15 03:58] LABS: Basophils % 0.5 %; Eosinophils # 0.2 K/mcL (0.0-0.6); Eosinophils % 3.2 %; Hemoglobin 8.3 g/dL (11.5-15.4); Immature Granulocytes % 1.3 % (0-4); Lymphocytes % 26.5 %; Mean Corpuscular HGB Conc 30.7 g/dL (31.6-35.5); Mean Corpuscular Hemoglobin 26.8 pg (28.0-33.3); Mean Corpuscular Volume 87.1 fL (83.0-100.0); Mean Platelet Volume 10.4 fL (9.4-12.4); Monocytes # 0.6 K/mcL (0.0-1.3); Monocytes % 7.8 %; Neutrophils # 4.5 K/mcL (1.6-8.9); Platelet Count 222 K/mcL (140-400); Segmented Neutrophils % 60.7 %
[2016-10-15 04:13] LABS: BUN/Creatinine Ratio 26 (6-26); Blood Urea Nitrogen 20 mg/dL (7-20); Calcium 8.5 mg/dL (8.6-10.8); Carbon Dioxide 25 mEq/L (19-29); Chloride 111 mEq/L (98-109); Glucose 121 mg/dL (70-99); Osmolality,Calculated 312 (280-300); Potassium 3.4 mEq/L (3.5-4.5); Sodium 149 mEq/L (136-145); eGFR For African Americans > 60 (> 60); eGFR For Non-African Americans > 60 (> 60)
[2016-10-15 04:14] LABS: Albumin 2.5 g/dL (3.5-5.0); Albumin/Globulin Ratio 0.7 (1.1-2.2); Bilirubin,Direct 0.2 mg/dL (0.0-0.5); Bilirubin,Indirect 0.2 mg/dL (0.0-1.2); Bilirubin,Total 0.4 mg/dL (0.2-1.2); Globulin 3.6 g/dL (2.4-3.5); Magnesium 1.9 mg/dL (1.6-2.6); Total Protein 6.1 g/dL (6.0-8.3)
[2016-10-15] MEDS ORDERED: 0.9 % Sodium Chloride 500 ML ONE (05:52)
[2016-10-15] MEDS: *HR* Enoxaparin 40 MG/0.4 ML SYRINGE SQ SCH (05:57)
[2016-10-15] MEDS: Magnesium Sulfate 2 GM in D5% in Water 100 ML IVPB PRN ×2 (05:58→21:16)
[2016-10-15] MEDS: Chlorhexidine Rinse 15 ML MOUTHWASH MM SCH ×2 (08:17→21:16)
[2016-10-15] MEDS: Insulin LISPRO 300 UNITS/3 ML VIAL SQ SCH ×4 (08:18→20:46)
[2016-10-15] MEDS: Ferrous Sulfate Oral Soln 300 MG/5 ML UDC PO SCH ×2 (08:18→16:42)
[2016-10-15] MEDS: Aspirin 81 MG TAB.CHEW PO SCH (08:19)
[2016-10-15] MEDS: Cholecalciferol (D-3) 1,000 UNIT TABLET PO SCH (08:19)
[2016-10-15] MEDS: Pantoprazole 40 MG VIAL IVP SCH (08:19)
[2016-10-15 12:59] LABS: Magnesium 1.8 mg/dL (1.6-2.6); Potassium 3.6 mEq/L (3.5-4.5)
--- NOTE | 2016-10-15 17:14 | Internal Med Progress Note ---
Date of Encounter: 10/15/16 Time of Encounter: 13:00 - Assessment and plan (1) Toxic metabolic encephalopathy Current Visit: Yes Status: Acute Assessment and plan: 10/15 mental status has improved. she is eating more. Continue Seroquel at bedtime and Haldol when necessary. Will avoid benzodiazepines. 10/14 Patient is somnolent with episodes of delirium. off ativan and Celexa. Appreciate psychiatry input. (2) Bacteremia Current Visit: Yes Status: Acute Assessment and plan: Pseudomonas stutzeri Bacteremia. History of ESBL UTI 09/28. Blood cultures from 10/08/16 grew Pseudomonas stutzeri Repeat cultures from 10/10/16 show NGTD. Clinically slowly improving. Remains afebrile since 10/08 and WBC is normal. Continue Zosyn. Appreciate ID recommendations. (3) Acute respiratory failure with hypoxia Current Visit: Yes Status: Acute Assessment and plan: Secondary to poor respiratory effort due to metabolic encephalopathy and suspected pulmonary edema likely from fluid resuscitation. Patient required mechanical ventilation on admission and was successfully extubated 10/12. speech therapy consulted and recommends puree diet CXR 10/11/16, no obvious pneumonia CXR 10/13 shows cardiomegaly with vascular congestion and moderate right pleural effusion, increasing airspace disease in right lower lung. Clinically slowly improving, doing well on 2L NC. continue Lasix drip and nebulizations. (4) Anemia Current Visit: No Status: Acute Assessment and plan: Patient presented with hemoglobin of 6.4 on admission 09/27. Acute blood loss anemia secondary to GI bleed in the setting of supratherapeutic INR at 5. Coumadin held. Patient was transfused with 3 units of packed red blood cells and 1 FFP. Hemoglobin is stable at 8.3. Qualifiers: Anemia type: other cause Other causes of anemia: acute posthemorrhagic Qualified Code(s): D62 - Acute posthemorrhagic anemia (5) Acute worsening of stage 3 chronic kidney disease Current Visit: Yes Status: Acute Assessment and plan: Secondary to acute blood loss anemia. Improved. Close monitoring. Avoid nephrotoxic agents as possible (6) LA thrombus Current Visit: Yes Status: Acute Assessment and plan: Patient with known atrial flutter with COSTA thrombus. Holding anticoagulation due to multiple episodes of acute anemia. Patient and family aware of high risk for CVA. 09/27/16 now she presents with weakness and bright red blood per rectum. Hemoglobin 6.4. INR supratherapeutic at 5. She was transfused with 3 units PRBC, 1 FFP and vitamin K. 09/07/16 hospitalized for acute anemia, Hgb 5.7. She was transfused with 3 units PRBC and underwent EGD/colonoscopy which was negative for active bleeding (2 non -bleeding polyps were removed). By discharge, she was re-started on coumadin with lovenox bridging. (7) Atrial fibrillation and flutter Current Visit: Yes Status: Resolved Assessment and plan: Patient with known history of poorly-controlled atrial flutter. He is not a candidate for rhythm control strategy due to COSTA thrombus. Patient takes digoxin and Cardizem at home. Appreciate cardiology input. Continue metoprolol. Discontinue digoxin and Cardizem at discharge. (8) Diabetes mellitus type 2, noninsulin dependent Current Visit: No Status: Chronic Assessment and plan: adequate Accu-Cheks. Continue sliding scale, diabetic diet. (9) Chronic blood loss anemia Current Visit: No Status: Acute Assessment and plan: plan as above. - Subjective Interval history: patient is sleeping but she wakes up to verbal stimuli. she denies any chest pain. no shortness of breath. - Constitutional Vitals: Temp Pulse Resp BP Pulse Ox 97.7 F 76 18 129/58 96 10/15/16 15:44 10/15/16 15:44 10/15/16 16:44 10/15/16 15:44 10/15/16 16:44 General appearance: Present: cooperative, A&O X 2, pleasant, no acute distress, answers questions appropriately Exam: she answers questions and follows commands. she moves all her extremities. - Neck Neck exam general surgery: Present: supple, trachea midline. Absent: lymphadenopathy - Respiratory Respiratory exam: Present: CTAB - Cardiovascular Cardiovascular exam: Present: RRR - GI/Abdominal GI/Abdominal exam: Present: normal bowel sounds, soft. Absent: distended, tenderness - Extremities Exam Extremities exam: Absent: pedal edema - Back Exam Back exam: Absent: CVA tenderness (L), CVA tenderness (R) - Neurological Exam Neurological exam: Present: alert, oriented X3, no focal deficits, strengths equal and symetr throughout. Absent: facial droop, speech deficit - Skin Skin exam: Absent: rash Internal Medicine: Result - Labs CBC & Chem 7: 10/15/16 03:10 10/15/16 12:15 Labs: Short CBC 10/15/16 Range/Units 03:10 WBC 7.4 (4.3-11.1) K/mcL Hgb 8.3 L (11.5-15.4) g/dL Hct 27.0 L (35.3-44.9) % Plt Count 222 (140-400) K/mcL Neutrophils # 4.5 (1.6-8.9) K/mcL BMP 10/15/16 10/15/16 03:10 12:15 Sodium 149 H Potassium 3.4 L 3.6 Chloride 111 H Carbon Dioxide 25 BUN 20 Creatinine 0.78 Glucose 121 H Calcium 8.5 L Liver Function 10/15/16 Range/Units 03:10 Total Bilirubin 0.4 (0.2-1.2) mg/dL Direct Bilirubin 0.2 (0.0-0.5) mg/dL AST 14 (5-34) Units/L ALT 13 (0-55) Units/L Alkaline Phosphatase 97 (38-126) Units/L Albumin 2.5 L (3.5-5.0) g/dL - ABG Interpretation ABG results: ABG ABG pH 7.55 pH Units (7.32-7.45) H 10/13/16 23:53 ABG pCO2 34 mmHg (35-45) L 10/13/16 23:53 ABG pO2 73 mmHg (85-104) L 10/13/16 23:53 ABG O2 Saturation 96 % (95-98) 10/13/16 23:53 PT/INR, D-dimer PT 15.8 Seconds (9.4-12.1) H 10/12/16 04:00 - VTE Documentation of Mechanical Device: Intermittent pneumatic compression device Consult Discharge Plan - Plan Referrals: Ward Mcmanus MD [Primary Care Provider] - 10/21/16 2:00 pm () Eleni Edge CNP [Partnered Physician] - 10/12/16 8:45 am (in [place] office )
--- NOTE | 2016-10-15 20:11 | Infectious Disease Progress No ---
Date of Encounter: 10/13/16 Time of Encounter: 14:00 - Assessment and Plan (1) Fever Current Visit: Yes Status: Acute resolved. Etiology not clear, possibly due to bacteremia. Afebrile since then. No signs of upper respiratory infection, no signs of pneumonia, no signs of abdominal source, no sign of meningitis. currently on Zosyn Cultures revealed Pseudomonas species: Susceptible to Zosyn Qualifiers: Fever type: unspecified Qualified Code(s): R50.9 - Fever, unspecified (2) Bacteremia Current Visit: Yes Status: Acute On 10/08/16 with a gram-negative maria a non-informatica mdm developer. Repeat cultures on 10/10/16 no growth to date Source is not clear since the bacteria is not the same as the urinary tract infection Escherichia coli ESBL. Not sure if it's true infection versus a contaminant Concern for possible GI source if we can't find any other source. cultures still not finalized (3) Bacteremia due to Gram-negative bacteria Current Visit: Yes Status: Acute Secondary to ESBL Escherichia coli Received 11 days worth of antibiotics including ertapenem then switched to Zosyn Urine does not appear grossly infected (4) UTI (urinary tract infection) Current Visit: Yes Status: Acute Urinary tract infection type: acute cystitis Hematuria presence: without hematuria Qualifiers: Urinary tract infection type: acute cystitis Hematuria presence: without hematuria Qualified Code(s): N30.00 - Acute cystitis without hematuria (5) Acute renal injury Current Visit: No Status: Acute (6) Altered mental status Current Visit: Yes Status: Acute Qualifiers: Altered mental status type: coma Coma depth: [place] coma 3-8 Coma timing : 24 hours or more after hospital admission Qualified Code(s): R40.2434 - [place] coma scale score 3-8, 24 hours or more after hospital admission (7) Coumadin toxicity Current Visit: Yes Status: Acute Qualifiers: Encounter type: initial encounter Injury intent: accidental or unintentional Qualified Code(s): T45.511A - Poisoning by anticoagulants, accidental (unintentional), initial encounter (8) Acute GI bleeding Current Visit: Yes Status: Acute (9) Anemia Current Visit: No Status: Acute Qualifiers: Anemia type: other cause Other causes of anemia: acute posthemorrhagic Qualified Code(s): D62 - Acute posthemorrhagic anemia (10) Afib Current Visit: No Status: Chronic Qualifiers: Atrial fibrillation type: paroxysmal Qualified Code(s): I48.0 - Paroxysmal atrial fibrillation - Subjective Interval history: this is a note postdated from 10/13/16 due to technical difficulties.; patient was seen and examined. Cultures noted. The Pseudomonas species. Currently on Zosyn. No SIRS criteria. Overall improved. Infect Dis PN-Objective Data - Labs CBC & Chem 7: 10/15/16 03:10 10/15/16 12:15 Labs: Laboratory Results - last 24 hr 10/14/16 10/14/16 10/14/16 12:25 16:51 21:14 WBC RBC Hgb Hct MCV MCH MCHC RDW Plt Count MPV Immature Gran % Seg Neutrophils % Lymphocytes % Monocytes % Eosinophils % Basophils % Neutrophils # Lymphocytes # Monocytes # Eosinophils # Basophils # Sodium Potassium Chloride Carbon Dioxide BUN Creatinine Est GFR ( Amer) Est GFR (Non-Af Amer) BUN/Creatinine Ratio Glucose POC Glucose 146 H 120 H 137 H Calculated Osmolality Calcium Ionized Calcium Phosphorus Magnesium Total Bilirubin Direct Bilirubin Indirect Bilirubin AST ALT Alkaline Phosphatase Serum Total Protein Albumin Globulin Albumin/Globulin Ratio 10/15/16 10/15/16 10/15/16 03:10 03:10 03:10 WBC 7.4 RBC 3.10 L Hgb 8.3 L Hct 27.0 L MCV 87.1 MCH 26.8 L MCHC 30.7 L RDW 20.0 H Plt Count 222 MPV 10.4 Immature Gran % 1.3 Seg Neutrophils % 60.7 Lymphocytes % 26.5 Monocytes % 7.8 Eosinophils % 3.2 Basophils % 0.5 Neutrophils # 4.5 Lymphocytes # 2.0 Monocytes # 0.6 Eosinophils # 0.2 Basophils # 0.0 Sodium 149 H Potassium 3.4 L Chloride 111 H Carbon Dioxide 25 BUN 20 Creatinine 0.78 Est GFR ( Amer) > 60 Est GFR (Non-Af Amer) > 60 BUN/Creatinine Ratio 26 Glucose 121 H POC Glucose Calculated Osmolality 312 H Calcium 8.5 L Ionized Calcium Phosphorus 4.0 Magnesium 1.9 Total Bilirubin 0.4 Direct Bilirubin 0.2 Indirect Bilirubin 0.2 AST 14 ALT 13 Alkaline Phosphatase 97 Serum Total Protein 6.1 Albumin 2.5 L Globulin 3.6 H Albumin/Globulin Ratio 0.7 L 10/15/16 10/15/16 10/15/16 03:10 07:33 11:25 WBC RBC Hgb Hct MCV MCH MCHC RDW Plt Count MPV Immature Gran % Seg Neutrophils % Lymphocytes % Monocytes % Eosinophils % Basophils % Neutrophils # Lymphocytes # Monocytes # Eosinophils # Basophils # Sodium Potassium Chloride Carbon Dioxide BUN Creatinine Est GFR ( Amer) Est GFR (Non-Af Amer) BUN/Creatinine Ratio Glucose POC Glucose 129 H 138 H Calculated Osmolality Calcium Ionized Calcium 1.17 Phosphorus Magnesium Total Bilirubin Direct Bilirubin Indirect Bilirubin AST ALT Alkaline Phosphatase Serum Total Protein Albumin Globulin Albumin/Globulin Ratio 10/15/16 12:15 WBC RBC Hgb Hct MCV MCH MCHC RDW Plt Count MPV Immature Gran % Seg Neutrophils % Lymphocytes % Monocytes % Eosinophils % Basophils % Neutrophils # Lymphocytes # Monocytes # Eosinophils # Basophils # Sodium Potassium 3.6 Chloride Carbon Dioxide BUN Creatinine Est GFR ( Amer) Est GFR (Non-Af Amer) BUN/Creatinine Ratio Glucose POC Glucose Calculated Osmolality Calcium Ionized Calcium Phosphorus Magnesium 1.8 Total Bilirubin Direct Bilirubin Indirect Bilirubin AST ALT Alkaline Phosphatase Serum Total Protein Albumin Globulin Albumin/Globulin Ratio Cultures: Cultures 10/08/16 01:41 Blood Culture - Final Peripheral Venipuncture Pseudomonas stutzeri 10/10/16 09:07 Blood Culture - Preliminary Peripheral Venipuncture No growth. 10/10/16 07:17 Blood Culture - Preliminary Peripheral Venipuncture No growth. 10/11/16 15:15 Legionella Antigen - Final Urine,[place] 10/11/16 15:15 Streptococcus pneumoniae Antigen (M - Final Urine,[place] 10/08/16 01:20 Sputum Culture - Final Sputum 10/08/16 01:20 Urine Culture - Final Urine,Catheterized No growth. 09/28/16 18:30 Urine Culture - Final Urine,Clean Catch Escherichia coli ESBL Serology 10/11/16 10/08/16 09/30/16 Range/Units 15:15 01:41 11:25 Urine Color (Yellow) Urine Clarity (Clear) Urine pH (5.0-8.0) pH Units Ur Specific [place] (1.010-1.025) Urine Protein (Neg-Trace) mg/dL Urine Glucose (UA) (Normal) mg/dL Urine Ketones (Negative) mg/dL Urine Blood (Negative) Urine Nitrite (Negative) Urine Bilirubin (Negative) Urine Urobilinogen (Normal) mg/dL Ur Leukocyte Esterase (Negative) Urine Microscopic RBC (0-3) per hpf Urine Microscopic WBC (0-3) per hpf Ur Squamous Epith Cells (None-Few) per lpf Calcium Oxalate Crystal Amorphous Sediment (Few) Urine Bacteria (None-Few) per hpf Hyaline Casts (None-Few) per lpf Urine Mucus (Few) Urine Yeast (None Seen) per hpf Ur Culture Indicated? (NO) Urine Creatinine 134 mg/dL Protein/Creatinin Ratio 0.19 (0-0.20) mg/mg Urine Sodium mEq/L Urine Total Protein 26 H (1-14) mg/dL A. baumannii (PCR) Not Detected (Not Detect) [place] albicans (PCR) Not Detected (Not Detect) C. glabrata (PCR) Not Detected (Not Detect) C. krusei (PCR) Not Detected (Not Detect) C. parapsilosis (PCR) Not Detected (Not Detect) C. tropicalis (PCR) Not Detected (Not Detect) Enterobacteriac sp PCR Not Detected (Not Detect) E. cloacae complex PCR Not Detected (Not Detect) Enterococcus sp PCR Not Detected (Not Detect) E. coli (PCR) Not Detected (Not Detect) H. influenzae (PCR) Not Detected (Not Detect) HIV Ag/Ab Combo Qual Nonreactive (Nonreactive) Klebsiella oxytoca PCR Not Detected (Not Detect) Klebsiella pneumoniae Not Detected (Not Detect) List. monocytogenes PCR Not Detected (Not Detect) N. meningitidis (PCR) Not Detected (Not Detect) Proteus species (PCR) Not Detected (Not Detect) Serratia marcescens PCR Not Detected (Not Detect) Staphylococcus sp PCR Not Detected (Not Detect) Staph aureus (PCR) Not Detected (Not Detect) mecA-Methicil Res Gene N/A (Not Detect) Streptococcus sp PCR Not Detected (Not Detect) Group A Strep DNA Not Detected (Not Detect) Group B Strep (PCR) Not Detected (Not Detect) Strep pneumoniae (PCR) Not Detected (Not Detect) P. aeruginosa (PCR) Not Detected (Not Detect) [place]/B-Vanco Res Genes N/A (Not Detect) KPC (blaKPC) Detect PCR N/A (Not Detect) 09/30/16 09/28/16 Range/Units 11:25 18:30 Urine Color Dark Yellow (Yellow) Urine Clarity Turbid A (Clear) Urine pH 5.5 (5.0-8.0) pH Units Ur Specific [place] > 1.030 H (1.010-1.025) Urine Protein >=1000 H (Neg-Trace) mg/dL Urine Glucose (UA) 100 H (Normal) mg/dL Urine Ketones Trace H (Negative) mg/dL Urine Blood Negative (Negative) Urine Nitrite Negative (Negative) Urine Bilirubin Small H (Negative) Urine Urobilinogen Normal (Normal) mg/dL Ur Leukocyte Esterase Moderate H (Negative) Urine Microscopic RBC 0-3 (0-3) per hpf Urine Microscopic WBC TNTC H (0-3) per hpf Ur Squamous Epith Cells Many H (None-Few) per lpf Calcium Oxalate Crystal Present Amorphous Sediment Moderate H (Few) Urine Bacteria Moderate H (None-Few) per hpf Hyaline Casts Few (None-Few) per lpf Urine Mucus Few (Few) Urine Yeast Few H (None Seen) per hpf Ur Culture Indicated? YES A (NO) Urine Creatinine mg/dL Protein/Creatinin Ratio (0-0.20) mg/mg Urine Sodium 33.0 mEq/L Urine Total Protein (1-14) mg/dL A. baumannii (PCR) (Not Detect) [place] albicans (PCR) (Not Detect) C. glabrata (PCR) (Not Detect) C. krusei (PCR) (Not Detect) C. parapsilosis (PCR) (Not Detect) C. tropicalis (PCR) (Not Detect) Enterobacteriac sp PCR (Not Detect) E. cloacae complex PCR (Not Detect) Enterococcus sp PCR (Not Detect) E. coli (PCR) (Not Detect) H. influenzae (PCR) (Not Detect) HIV Ag/Ab Combo Qual (Nonreactive) Klebsiella oxytoca PCR (Not Detect) Klebsiella pneumoniae (Not Detect) List. monocytogenes PCR (Not Detect) N. meningitidis (PCR) (Not Detect) Proteus species (PCR) (Not Detect) Serratia marcescens PCR (Not Detect) Staphylococcus sp PCR (Not Detect) Staph aureus (PCR) (Not Detect) mecA-Methicil Res Gene (Not Detect) Streptococcus sp PCR (Not Detect) Group A Strep DNA (Not Detect) Group B Strep (PCR) (Not Detect) Strep pneumoniae (PCR) (Not Detect) P. aeruginosa (PCR) (Not Detect) [place]/B-Vanco Res Genes (Not Detect) KPC (blaKPC) Detect PCR (Not Detect) Exam - Constitutional Vitals: Temp Pulse Resp BP Pulse Ox 99.4 F 90 26 128/59 100 10/15/16 18:50 10/15/16 18:50 10/15/16 18:50 10/15/16 18:50 10/15/16 18:50 General appearance: no acute distress, no febrile - Head Head exam: Present: atraumatic, normocephalic - Respiratory Additional comments: Bilateral wheezing and some rhonchi noted some rales on the right side - Cardiovascular Cardiovascular exam: Present: RRR, +S1, +S2 - Extremities Exam Additional comments: Adequate perfusion no pedal edema - VTE Documentation of Mechanical Device: Intermittent pneumatic compression device Consult Discharge Plan - Plan Referrals: Ward Mcmanus MD [Primary Care Provider] - 10/21/16 2:00 pm () Eleni Edge CNP [Partnered Physician] - 10/12/16 8:45 am (in [place] office )
--- NOTE | 2016-10-15 20:16 | Infectious Disease Progress No ---
Date of Encounter: 10/14/16 Time of Encounter: 11:00 - Assessment and Plan (1) Fever Current Visit: Yes Status: Acute resolved. Etiology not clear, possibly due to bacteremia. Afebrile since then. No signs of upper respiratory infection, no signs of pneumonia, no signs of abdominal source, no sign of meningitis. currently on Zosyn Cultures revealed Pseudomonas species: Susceptible to Zosyn Qualifiers: Fever type: unspecified Qualified Code(s): R50.9 - Fever, unspecified (2) Bacteremia Current Visit: Yes Status: Acute On 10/08/16 with a gram-negative maria a non-gardener. Repeat cultures on 10/10/16 no growth to date Source is not clear since the bacteria is not the same as the urinary tract infection Escherichia coli ESBL. Not sure if it's true infection versus a contaminant Concern for possible GI source if we can't find any other source. cultures still not finalized (3) Bacteremia due to Gram-negative bacteria Current Visit: Yes Status: Acute Secondary to ESBL Escherichia coli Received 11 days worth of antibiotics including ertapenem then switched to Zosyn Urine does not appear grossly infected (4) UTI (urinary tract infection) Current Visit: Yes Status: Acute Urinary tract infection type: acute cystitis Hematuria presence: without hematuria Qualifiers: Urinary tract infection type: acute cystitis Hematuria presence: without hematuria Qualified Code(s): N30.00 - Acute cystitis without hematuria (5) Acute renal injury Current Visit: No Status: Acute (6) Altered mental status Current Visit: Yes Status: Acute Qualifiers: Altered mental status type: coma Coma depth: [place] coma 3-8 Coma timing : 24 hours or more after hospital admission Qualified Code(s): R40.2434 - Barnard coma scale score 3-8, 24 hours or more after hospital admission (7) Coumadin toxicity Current Visit: Yes Status: Acute Qualifiers: Encounter type: initial encounter Injury intent: accidental or unintentional Qualified Code(s): T45.511A - Poisoning by anticoagulants, accidental (unintentional), initial encounter (8) Acute GI bleeding Current Visit: Yes Status: Acute (9) Anemia Current Visit: No Status: Acute Qualifiers: Anemia type: other cause Other causes of anemia: acute posthemorrhagic Qualified Code(s): D62 - Acute posthemorrhagic anemia (10) Afib Current Visit: No Status: Chronic Qualifiers: Atrial fibrillation type: paroxysmal Qualified Code(s): I48.0 - Paroxysmal atrial fibrillation - Subjective Interval history: this is a note postdated from 10/14/16. Patient seen and examined. Appears to be comfortable clinically. She just received Ativan because she was breathing heavily and lethargic. Patient was transferred to [address] [place] [address]. Daughter is at bedside questions answered and concerns addressed. Infect Dis PN-Objective Data - Labs CBC & Chem 7: 10/15/16 03:10 10/15/16 12:15 Labs: Laboratory Results - last 24 hr 10/14/16 10/14/16 10/14/16 12:25 16:51 21:14 WBC RBC Hgb Hct MCV MCH MCHC RDW Plt Count MPV Immature Gran % Seg Neutrophils % Lymphocytes % Monocytes % Eosinophils % Basophils % Neutrophils # Lymphocytes # Monocytes # Eosinophils # Basophils # Sodium Potassium Chloride Carbon Dioxide BUN Creatinine Est GFR ( Amer) Est GFR (Non-Af Amer) BUN/Creatinine Ratio Glucose POC Glucose 146 H 120 H 137 H Calculated Osmolality Calcium Ionized Calcium Phosphorus Magnesium Total Bilirubin Direct Bilirubin Indirect Bilirubin AST ALT Alkaline Phosphatase Serum Total Protein Albumin Globulin Albumin/Globulin Ratio 10/15/16 10/15/16 10/15/16 03:10 03:10 03:10 WBC 7.4 RBC 3.10 L Hgb 8.3 L Hct 27.0 L MCV 87.1 MCH 26.8 L MCHC 30.7 L RDW 20.0 H Plt Count 222 MPV 10.4 Immature Gran % 1.3 Seg Neutrophils % 60.7 Lymphocytes % 26.5 Monocytes % 7.8 Eosinophils % 3.2 Basophils % 0.5 Neutrophils # 4.5 Lymphocytes # 2.0 Monocytes # 0.6 Eosinophils # 0.2 Basophils # 0.0 Sodium 149 H Potassium 3.4 L Chloride 111 H Carbon Dioxide 25 BUN 20 Creatinine 0.78 Est GFR ( Amer) > 60 Est GFR (Non-Af Amer) > 60 BUN/Creatinine Ratio 26 Glucose 121 H POC Glucose Calculated Osmolality 312 H Calcium 8.5 L Ionized Calcium Phosphorus 4.0 Magnesium 1.9 Total Bilirubin 0.4 Direct Bilirubin 0.2 Indirect Bilirubin 0.2 AST 14 ALT 13 Alkaline Phosphatase 97 Serum Total Protein 6.1 Albumin 2.5 L Globulin 3.6 H Albumin/Globulin Ratio 0.7 L 0510/15/16 10/15/16 03:10 07:33 11:25 WBC RBC Hgb Hct MCV MCH MCHC RDW Plt Count MPV Immature Gran % Seg Neutrophils % Lymphocytes % Monocytes % Eosinophils % Basophils % Neutrophils # Lymphocytes # Monocytes # Eosinophils # Basophils # Sodium Potassium Chloride Carbon Dioxide BUN Creatinine Est GFR ( Amer) Est GFR (Non-Af Amer) BUN/Creatinine Ratio Glucose POC Glucose 129 H 138 H Calculated Osmolality Calcium Ionized Calcium 1.17 Phosphorus Magnesium Total Bilirubin Direct Bilirubin Indirect Bilirubin AST ALT Alkaline Phosphatase Serum Total Protein Albumin Globulin Albumin/Globulin Ratio 10/15/16 12:15 WBC RBC Hgb Hct MCV MCH MCHC RDW Plt Count MPV Immature Gran % Seg Neutrophils % Lymphocytes % Monocytes % Eosinophils % Basophils % Neutrophils # Lymphocytes # Monocytes # Eosinophils # Basophils # Sodium Potassium 3.6 Chloride Carbon Dioxide BUN Creatinine Est GFR ( Amer) Est GFR (Non-Af Amer) BUN/Creatinine Ratio Glucose POC Glucose Calculated Osmolality Calcium Ionized Calcium Phosphorus Magnesium 1.8 Total Bilirubin Direct Bilirubin Indirect Bilirubin AST ALT Alkaline Phosphatase Serum Total Protein Albumin Globulin Albumin/Globulin Ratio Cultures: Cultures 10/08/16 01:41 Blood Culture - Final Peripheral Venipuncture Pseudomonas stutzeri 10/10/16 09:07 Blood Culture - Preliminary Peripheral Venipuncture No growth. 10/10/16 07:17 Blood Culture - Preliminary Peripheral Venipuncture No growth. 10/11/16 15:15 Legionella Antigen - Final Urine,[place] 10/11/16 15:15 Streptococcus pneumoniae Antigen (M - Final Urine,[place] 10/08/16 01:20 Sputum Culture - Final Sputum 10/08/16 01:20 Urine Culture - Final Urine,Catheterized No growth. 09/28/16 18:30 Urine Culture - Final Urine,Clean Catch Escherichia coli ESBL Serology 10/11/16 10/08/16 09/30/16 Range/Units 15:15 01:41 11:25 Urine Color (Yellow) Urine Clarity (Clear) Urine pH (5.0-8.0) pH Units Ur Specific Alda (1.010-1.025) Urine Protein (Neg-Trace) mg/dL Urine Glucose (UA) (Normal) mg/dL Urine Ketones (Negative) mg/dL Urine Blood (Negative) Urine Nitrite (Negative) Urine Bilirubin (Negative) Urine Urobilinogen (Normal) mg/dL Ur Leukocyte Esterase (Negative) Urine Microscopic RBC (0-3) per hpf Urine Microscopic WBC (0-3) per hpf Ur Squamous Epith Cells (None-Few) per lpf Calcium Oxalate Crystal Amorphous Sediment (Few) Urine Bacteria (None-Few) per hpf Hyaline Casts (None-Few) per lpf Urine Mucus (Few) Urine Yeast (None Seen) per hpf Ur Culture Indicated? (NO) Urine Creatinine 134 mg/dL Protein/Creatinin Ratio 0.19 (0-0.20) mg/mg Urine Sodium mEq/L Urine Total Protein 26 H (1-14) mg/dL A. baumannii (PCR) Not Detected (Not Detect) Lorraine albicans (PCR) Not Detected (Not Detect) C. glabrata (PCR) Not Detected (Not Detect) C. krusei (PCR) Not Detected (Not Detect) C. parapsilosis (PCR) Not Detected (Not Detect) C. tropicalis (PCR) Not Detected (Not Detect) Enterobacteriac sp PCR Not Detected (Not Detect) E. cloacae complex PCR Not Detected (Not Detect) Enterococcus sp PCR Not Detected (Not Detect) E. coli (PCR) Not Detected (Not Detect) H. influenzae (PCR) Not Detected (Not Detect) HIV Ag/Ab Combo Qual Nonreactive (Nonreactive) Klebsiella oxytoca PCR Not Detected (Not Detect) Klebsiella pneumoniae Not Detected (Not Detect) List. monocytogenes PCR Not Detected (Not Detect) N. meningitidis (PCR) Not Detected (Not Detect) Proteus species (PCR) Not Detected (Not Detect) Serratia marcescens PCR Not Detected (Not Detect) Staphylococcus sp PCR Not Detected (Not Detect) Staph aureus (PCR) Not Detected (Not Detect) mecA-Methicil Res Gene N/A (Not Detect) Streptococcus sp PCR Not Detected (Not Detect) Group A Strep DNA Not Detected (Not Detect) Group B Strep (PCR) Not Detected (Not Detect) Strep pneumoniae (PCR) Not Detected (Not Detect) P. aeruginosa (PCR) Not Detected (Not Detect) Sydney/B-Vanco Res Genes N/A (Not Detect) KPC (blaKPC) Detect PCR N/A (Not Detect) 09/30/16 09/28/16 Range/Units 11:25 18:30 Urine Color Dark Yellow (Yellow) Urine Clarity Turbid A (Clear) Urine pH 5.5 (5.0-8.0) pH Units Ur Specific Alda > 1.030 H (1.010-1.025) Urine Protein >=1000 H (Neg-Trace) mg/dL Urine Glucose (UA) 100 H (Normal) mg/dL Urine Ketones Trace H (Negative) mg/dL Urine Blood Negative (Negative) Urine Nitrite Negative (Negative) Urine Bilirubin Small H (Negative) Urine Urobilinogen Normal (Normal) mg/dL Ur Leukocyte Esterase Moderate H (Negative) Urine Microscopic RBC 0-3 (0-3) per hpf Urine Microscopic WBC TNTC H (0-3) per hpf Ur Squamous Epith Cells Many H (None-Few) per lpf Calcium Oxalate Crystal Present Amorphous Sediment Moderate H (Few) Urine Bacteria Moderate H (None-Few) per hpf Hyaline Casts Few (None-Few) per lpf Urine Mucus Few (Few) Urine Yeast Few H (None Seen) per hpf Ur Culture Indicated? YES A (NO) Urine Creatinine mg/dL Protein/Creatinin Ratio (0-0.20) mg/mg Urine Sodium 33.0 mEq/L Urine Total Protein (1-14) mg/dL A. baumannii (PCR) (Not Detect) Lorraine albicans (PCR) (Not Detect) C. glabrata (PCR) (Not Detect) C. krusei (PCR) (Not Detect) C. parapsilosis (PCR) (Not Detect) C. tropicalis (PCR) (Not Detect) Enterobacteriac sp PCR (Not Detect) E. cloacae complex PCR (Not Detect) Enterococcus sp PCR (Not Detect) E. coli (PCR) (Not Detect) H. influenzae (PCR) (Not Detect) HIV Ag/Ab Combo Qual (Nonreactive) Klebsiella oxytoca PCR (Not Detect) Klebsiella pneumoniae (Not Detect) List. monocytogenes PCR (Not Detect) N. meningitidis (PCR) (Not Detect) Proteus species (PCR) (Not Detect) Serratia marcescens PCR (Not Detect) Staphylococcus sp PCR (Not Detect) Staph aureus (PCR) (Not Detect) mecA-Methicil Res Gene (Not Detect) Streptococcus sp PCR (Not Detect) Group A Strep DNA (Not Detect) Group B Strep (PCR) (Not Detect) Strep pneumoniae (PCR) (Not Detect) P. aeruginosa (PCR) (Not Detect) Sydney/B-Vanco Res Genes (Not Detect) KPC (blaKPC) Detect PCR (Not Detect) Exam - Constitutional Vitals: Temp Pulse Resp BP Pulse Ox 99.4 F 90 26 128/59 100 10/15/16 18:50 10/15/16 18:50 10/15/16 18:50 10/15/16 18:50 10/15/16 18:50 Exam: Lethargic, just received Ativan, opens eyes spontaneously. - Neck Neck exam: Present: full ROM - Respiratory Additional comments: Air sounds audible both lung bass. Some diffuse rhonchi noted. - Cardiovascular Cardiovascular exam: Present: RRR, +S1, +S2 - GI/Abdominal GI/Abdominal exam: Present: soft. Absent: tenderness - Extremities Exam Extremities exam: Present: normal inspection - VTE Documentation of Mechanical Device: Intermittent pneumatic compression device Consult Discharge Plan - Plan Referrals: Ward Mcmanus MD [Primary Care Provider] - 10/21/16 2:00 pm () Eleni Edge CNP [Partnered Physician] - 10/12/16 8:45 am (in [place] office )
[2016-10-15] MEDS: Ondansetron 4 MG/2 ML VIAL IVP PRN (21:29)
[2016-10-16] MEDS: Ipratropium/Albuterol Neb 3 ML IH SCH ×7 (00:37→23:18)
[2016-10-16 04:44] LABS: Basophils % 0.6 %; Eosinophils # 0.2 K/mcL (0.0-0.6); Eosinophils % 3.9 %; Hematocrit 24.8 % (35.3-44.9); Hemoglobin 7.5 g/dL (11.5-15.4); Immature Granulocytes % 1.1 % (0-4); Lymphocytes # 1.8 K/mcL (0.6-4.6); Lymphocytes % 32.5 %; Mean Corpuscular HGB Conc 30.2 g/dL (31.6-35.5); Mean Corpuscular Hemoglobin 26.9 pg (28.0-33.3); Mean Corpuscular Volume 88.9 fL (83.0-100.0); Mean Platelet Volume 10.6 fL (9.4-12.4); Monocytes # 0.4 K/mcL (0.0-1.3); Monocytes % 7.4 %; Neutrophils # 2.9 K/mcL (1.6-8.9); Platelet Count 186 K/mcL (140-400); Red Blood Count 2.79 M/mcL (3.82-4.97); Red Cell Distribution Width 19.9 % (11.5-14.5); Segmented Neutrophils % 54.5 %
[2016-10-16 05:04] LABS: Alanine Aminotransferase 15 Units/L (0-55); Albumin 2.5 g/dL (3.5-5.0); Albumin/Globulin Ratio 0.7 (1.1-2.2); Alkaline Phosphatase 89 Units/L (38-126); Aspartate Amino Transferase 18 Units/L (5-34); BUN/Creatinine Ratio 19 (6-26); Bilirubin,Direct 0.2 mg/dL (0.0-0.5); Bilirubin,Indirect 0.2 mg/dL (0.0-1.2); Bilirubin,Total 0.4 mg/dL (0.2-1.2); Blood Urea Nitrogen 16 mg/dL (7-20); Calcium 8.2 mg/dL (8.6-10.8); Carbon Dioxide 27 mEq/L (19-29); Chloride 111 mEq/L (98-109); Globulin 3.4 g/dL (2.4-3.5); Glucose 111 mg/dL (70-99); Magnesium 1.7 mg/dL (1.6-2.6); Osmolality,Calculated 304 (280-300); Potassium 3.8 mEq/L (3.5-4.5); Sodium 146 mEq/L (136-145); Total Protein 5.9 g/dL (6.0-8.3); eGFR For African Americans > 60 (> 60); eGFR For Non-African Americans > 60 (> 60)
[2016-10-16] MEDS: *HR* Enoxaparin 40 MG/0.4 ML SYRINGE SQ SCH (06:17)
[2016-10-16] MEDS: Magnesium Sulfate 2 GM in D5% in Water 100 ML IVPB PRN (06:58)
[2016-10-16] MEDS ORDERED: *HR* Phytonadione 5 MG TABLET PO ONE (07:42)
[2016-10-16] MEDS: hydrALAZINE 25 MG TABLET PO SCH ×3 (08:57→17:11)
[2016-10-16] MEDS: Pantoprazole 40 MG VIAL IVP SCH (08:57)
[2016-10-16] MEDS: Aspirin 81 MG TAB.CHEW PO SCH (08:58)
[2016-10-16] MEDS: *HR* HYDROcodone/Acet 5/325 mg TABLET PO PRN ×2 (08:58→14:41)
[2016-10-16] MEDS: Ferrous Sulfate Oral Soln 300 MG/5 ML UDC PO SCH ×2 (08:58→16:51)
[2016-10-16] MEDS: Cholecalciferol (D-3) 1,000 UNIT TABLET PO SCH (08:58)
[2016-10-16] MEDS: Chlorhexidine Rinse 15 ML MOUTHWASH MM SCH ×2 (08:59→23:12)
[2016-10-16] MEDS: Insulin LISPRO 300 UNITS/3 ML VIAL SQ SCH ×4 (08:59→23:46)
[2016-10-16] MEDS: Piperacillin/Tazobactam 3.375 GM in D5% in Water (Mini-Bag+) 100 ML IVPB SCH ×3 (09:01→23:44)
[2016-10-16] MEDS: Ondansetron 4 MG/2 ML VIAL IVP PRN (11:30)
--- NOTE | 2016-10-16 15:48 | Internal Med Progress Note ---
Date of Encounter: 10/16/16 Time of Encounter: 13:45 - Assessment and plan (1) Anemia Current Visit: No Status: Acute Assessment and plan: Patient presented with hemoglobin of 6.4 on admission 09/27. Acute blood loss anemia secondary to GI bleed in the setting of supratherapeutic INR at 5. Coumadin held. Patient was transfused with 3 units of packed red blood cells and 1 FFP. Colonoscopy 09/08/2016 showed 10mm and 14mm tubular adenoma, diverticulosis, internal hemorrhoids, repeat 3 years. EGD 09/08/2016 showed single nodule in stomach, gastropathy Hemoglobin down to 7.5. Close monitor. check fecal occult blood test. no signs of external bleeding. hemodynamically stable. check iron, ferritin, b12 and folate. Qualifiers: Anemia type: other cause Other causes of anemia: acute posthemorrhagic Qualified Code(s): D62 - Acute posthemorrhagic anemia (2) Bacteremia Current Visit: Yes Status: Acute Assessment and plan: Pseudomonas stutzeri Bacteremia. History of ESBL UTI 09/28. Blood cultures from 10/08/16 grew Pseudomonas stutzeri Repeat cultures from 10/10/16 show NGTD. Clinically slowly improving. Remains afebrile since 10/08 and WBC is normal. Continue Zosyn. Appreciate ID recommendations. (3) Acute respiratory failure with hypoxia Current Visit: Yes Status: Acute Assessment and plan: Secondary to poor respiratory effort due to metabolic encephalopathy and suspected pulmonary edema likely from fluid resuscitation. Patient required mechanical ventilation on admission and was successfully extubated 10/12. speech therapy consulted and recommends puree diet CXR 10/11/16, no obvious pneumonia CXR 10/13 shows cardiomegaly with vascular congestion and moderate right pleural effusion, increasing airspace disease in right lower lung. Clinically slowly improving, doing well on 2L NC. continue Lasix drip and nebulizations. (4) Acute worsening of stage 3 chronic kidney disease Current Visit: Yes Status: Acute Assessment and plan: resolved. Secondary to acute blood loss anemia. close monitoring. Avoid nephrotoxic agents as possible (5) Toxic metabolic encephalopathy Current Visit: Yes Status: Acute Assessment and plan: Resolved. 10/14 Patient is somnolent with episodes of delirium. off ativan and Celexa. Appreciate psychiatry input. (6) LA thrombus Current Visit: Yes Status: Acute Assessment and plan: Patient with known atrial flutter with COSTA thrombus. Holding anticoagulation due to multiple episodes of acute anemia. Patient and family aware of high risk for CVA. 09/27/16 now she presents with weakness and bright red blood per rectum. Hemoglobin 6.4. INR supratherapeutic at 5. She was transfused with 3 units PRBC, 1 FFP and vitamin K. 09/07/16 hospitalized for acute anemia, Hgb 5.7. She was transfused with 3 units PRBC and underwent EGD/colonoscopy which was negative for active bleeding (2 non -bleeding polyps were removed). By discharge, she was re-started on coumadin with lovenox bridging. (7) Atrial fibrillation and flutter Current Visit: Yes Status: Resolved Assessment and plan: Patient with known history of poorly-controlled atrial flutter. He is not a candidate for rhythm control strategy due to COSTA thrombus. Patient takes digoxin and Cardizem at home. Appreciate cardiology input. Continue metoprolol. Discontinue digoxin and Cardizem at discharge. (8) Diabetes mellitus type 2, noninsulin dependent Current Visit: No Status: Chronic Assessment and plan: adequate Accu-Cheks. Continue sliding scale, diabetic diet. (9) Chronic blood loss anemia Current Visit: No Status: Acute Assessment and plan: plan as above. (10) Acute hypernatremia Current Visit: Yes Status: Acute Assessment and plan: Mild hypernatremia. Sodium 150 on 10/14. Most likely secondary to fluid resuscitation. Slowly improving. Sodium down to 146. - Subjective Interval history: Patient is fully alert and requesting to go home tomorrow. She has stated that her family will bring her walker tomorrow and she will walk around in the room. - Constitutional Vitals: Temp Pulse Resp BP Pulse Ox 98.0 F 71 18 101/73 100 10/16/16 11:15 10/16/16 14:00 10/16/16 11:15 10/16/16 14:00 10/16/16 12:00 General appearance: Present: cooperative, A&O X 2, pleasant, no acute distress, answers questions appropriately - Neck Neck exam general surgery: Present: supple, trachea midline. Absent: lymphadenopathy - Respiratory Respiratory exam: Present: CTAB - Cardiovascular Cardiovascular exam: Present: RRR - GI/Abdominal GI/Abdominal exam: Present: normal bowel sounds, soft. Absent: distended, tenderness - Extremities Exam Extremities exam: Present: pedal edema (1+ lower extremity edema.) - Neurological Exam Neurological exam: Present: alert, oriented X3, no focal deficits, strengths equal and symetr throughout. Absent: facial droop, speech deficit - Skin Skin exam: Absent: rash Internal Medicine: Result - Labs CBC & Chem 7: 10/16/16 04:28 10/16/16 04:28 Labs: Short CBC 10/16/16 Range/Units 04:28 WBC 5.4 (4.3-11.1) K/mcL Hgb 7.5 L (11.5-15.4) g/dL Hct 24.8 L (35.3-44.9) % Plt Count 186 (140-400) K/mcL Neutrophils # 2.9 (1.6-8.9) K/mcL BMP 10/16/16 04:28 Sodium 146 H Potassium 3.8 Chloride 111 H Carbon Dioxide 27 BUN 16 Creatinine 0.84 Glucose 111 H Calcium 8.2 L Liver Function 10/16/16 Range/Units 04:28 Total Bilirubin 0.4 (0.2-1.2) mg/dL Direct Bilirubin 0.2 (0.0-0.5) mg/dL AST 18 (5-34) Units/L ALT 15 (0-55) Units/L Alkaline Phosphatase 89 (38-126) Units/L Albumin 2.5 L (3.5-5.0) g/dL - ABG Interpretation ABG results: ABG ABG pH 7.55 pH Units (7.32-7.45) H 10/13/16 23:53 ABG pCO2 34 mmHg (35-45) L 10/13/16 23:53 ABG pO2 73 mmHg (85-104) L 10/13/16 23:53 ABG O2 Saturation 96 % (95-98) 10/13/16 23:53 PT/INR, D-dimer PT 15.8 Seconds (9.4-12.1) H 10/12/16 04:00 - VTE Documentation of Mechanical Device: Intermittent pneumatic compression device Consult Discharge Plan - Plan Referrals: Ward Mcmanus MD [Primary Care Provider] - 10/21/16 2:00 pm () Eleni Edge CNP [Partnered Physician] - 10/12/16 8:45 am (in [place] office )
[2016-10-16] MEDS ORDERED: 0.9 % Sodium Chloride 500 ML ONE (17:47)
[2016-10-16] MEDS: Calcium Gluconate 1,000 MG in D5% in Water 100 ML IVPB PRN (21:10)
[2016-10-16] MEDS: Furosemide 240 MG in D5% in Water 96 ML IVC SCH (23:14)
[2016-10-17] MEDS: Ipratropium/Albuterol Neb 3 ML IH SCH ×5 (03:48→20:47)
[2016-10-17 04:32] LABS: Basophils % 0.2 %; Eosinophils # 0.2 K/mcL (0.0-0.6); Eosinophils % 4.4 %; Hematocrit 24.2 % (35.3-44.9); Hemoglobin 7.3 g/dL (11.5-15.4); Immature Granulocytes % 0.6 % (0-4); Lymphocytes # 1.4 K/mcL (0.6-4.6); Lymphocytes % 27.9 %; Mean Corpuscular HGB Conc 30.2 g/dL (31.6-35.5); Mean Corpuscular Volume 89.6 fL (83.0-100.0); Mean Platelet Volume 9.7 fL (9.4-12.4); Monocytes # 0.3 K/mcL (0.0-1.3); Monocytes % 6.5 %; Neutrophils # 3.1 K/mcL (1.6-8.9); Platelet Count 168 K/mcL (140-400); Red Cell Distribution Width 19.4 % (11.5-14.5); Segmented Neutrophils % 60.4 %
[2016-10-17 04:36] LABS: BUN/Creatinine Ratio 13 (6-26); Blood Urea Nitrogen 11 mg/dL (7-20); Calcium 8.3 mg/dL (8.6-10.8); Carbon Dioxide 26 mEq/L (19-29); Chloride 107 mEq/L (98-109); Glucose 106 mg/dL (70-99); Magnesium 1.8 mg/dL (1.6-2.6); Osmolality,Calculated 294 (280-300); Phosphorous 3.3 mg/dL (2.3-4.7); Potassium 3.9 mEq/L (3.5-4.5); Sodium 142 mEq/L (136-145); eGFR For African Americans > 60 (> 60); eGFR For Non-African Americans > 60 (> 60)
[2016-10-17 04:37] LABS: % Iron Saturation 12 % (15-50); Iron 33 mcg/dL (50-170); Transferrin 200 mg/dL (180-382)
[2016-10-17] MEDS: hydrALAZINE 25 MG TABLET PO SCH ×3 (04:53→17:18)
[2016-10-17 04:58] LABS: Ferritin 122 ng/ml (5-204)
[2016-10-17 05:12] LABS: Folate 4.5 ng/mL (7.0-31.4)
[2016-10-17] MEDS: Piperacillin/Tazobactam 3.375 GM in D5% in Water (Mini-Bag+) 100 ML IVPB SCH ×2 (10:01→17:21)
[2016-10-17] MEDS: Ferrous Sulfate Oral Soln 300 MG/5 ML UDC PO SCH ×2 (10:01→17:18)
[2016-10-17] MEDS: Folic Acid 1 MG in D5% in Water 50 ML IVPB SCH (10:01)
[2016-10-17] MEDS: Chlorhexidine Rinse 15 ML MOUTHWASH MM SCH (10:01)
[2016-10-17] MEDS: Pantoprazole 40 MG VIAL IVP SCH (10:01)
[2016-10-17] MEDS: Insulin LISPRO 300 UNITS/3 ML VIAL SQ SCH ×3 (10:02→17:25)
[2016-10-17] MEDS: Cholecalciferol (D-3) 1,000 UNIT TABLET PO SCH (10:02)
[2016-10-17] MEDS: *HR* Enoxaparin 40 MG/0.4 ML SYRINGE SQ SCH (10:02)
[2016-10-17] MEDS: Aspirin 81 MG TAB.CHEW PO SCH (10:02)
[2016-10-17] MEDS: *HR* HYDROcodone/Acet 5/325 mg TABLET PO PRN (10:17)
[2016-10-17] MEDS: Magnesium Sulfate 2 GM in D5% in Water 100 ML IVPB PRN (12:53)
[2016-10-17 15:35] LABS: Hematocrit 24.7 % (35.3-44.9); Hemoglobin 7.3 g/dL (11.5-15.4)
--- NOTE | 2016-10-17 16:54 | Internal Med Progress Note ---
Date of Encounter: 10/17/16 Time of Encounter: 11:45 - Assessment and plan (1) Anemia Current Visit: No Status: Acute Assessment and plan: Patient presented with hemoglobin of 6.4 on admission 09/27. Acute blood loss anemia secondary to GI bleed in the setting of supratherapeutic INR at 5. Coumadin held. Patient was transfused with 3 units of packed red blood cells and 1 FFP. Colonoscopy 09/08/2016 showed 10mm and 14mm tubular adenoma, diverticulosis, internal hemorrhoids, repeat 3 years. EGD 09/08/2016 showed single nodule in stomach, gastropathy Ferritin 122. Iron 33. Percent saturation 12. Normal B12. Hemoglobin down to 7.3. Close monitor. Repeat hgb this afternoon. Negative fecal occult blood test. no signs of external bleeding. hemodynamically stable. Low folate. Qualifiers: Anemia type: other cause Other causes of anemia: acute posthemorrhagic Qualified Code(s): D62 - Acute posthemorrhagic anemia (2) Bacteremia Current Visit: Yes Status: Acute Assessment and plan: Pseudomonas stutzeri Bacteremia. History of ESBL UTI 09/28. Blood cultures from 10/08/16 grew Pseudomonas stutzeri Repeat cultures from 10/10/16 show NGTD. Clinically slowly improving. Remains afebrile since 10/08 and WBC is normal. Continue Zosyn. Appreciate ID recommendations. (3) Acute respiratory failure with hypoxia Current Visit: Yes Status: Acute Assessment and plan: Secondary to poor respiratory effort due to metabolic encephalopathy and suspected pulmonary edema likely from fluid resuscitation. Patient required mechanical ventilation on admission and was successfully extubated 10/12. speech therapy consulted and recommends puree diet CXR 10/11/16, no obvious pneumonia CXR 10/13 shows cardiomegaly with vascular congestion and moderate right pleural effusion, increasing airspace disease in right lower lung. Good diuresis. Clinically slowly improving, doing well on 2L NC. continue Lasix drip and nebulizations. (4) Acute worsening of stage 3 chronic kidney disease Current Visit: Yes Status: Acute Assessment and plan: resolved. pre-renal from acute blood loss anemia. close monitoring. Avoid nephrotoxic agents as possible (5) Toxic metabolic encephalopathy Current Visit: Yes Status: Acute Assessment and plan: Resolved. 10/14 off ativan and Celexa. Appreciate psychiatry input. (6) LA thrombus Current Visit: Yes Status: Acute Assessment and plan: Patient with known atrial flutter with COSTA thrombus. Holding anticoagulation due to multiple episodes of acute anemia. Patient and family aware of high risk for CVA. 09/27/16 now she presents with weakness and bright red blood per rectum. Hemoglobin 6.4. INR supratherapeutic at 5. She was transfused with 3 units PRBC, 1 FFP and vitamin K. 09/07/16 hospitalized for acute anemia, Hgb 5.7. She was transfused with 3 units PRBC and underwent EGD/colonoscopy which was negative for active bleeding (2 non -bleeding polyps were removed). By discharge, she was re-started on coumadin with lovenox bridging. (7) Atrial fibrillation and flutter Current Visit: Yes Status: Resolved Assessment and plan: Patient with known history of poorly-controlled atrial flutter. He is not a candidate for rhythm control strategy due to COSTA thrombus. Patient takes digoxin and Cardizem at home. Appreciate cardiology input. Heart rate is adequate. Continue metoprolol. Discontinue digoxin and Cardizem at discharge. (8) Diabetes mellitus type 2, noninsulin dependent Current Visit: No Status: Chronic Assessment and plan: adequate Accu-Cheks. Continue sliding scale, diabetic diet. (9) Chronic blood loss anemia Current Visit: No Status: Acute Assessment and plan: plan as above. (10) Acute hypernatremia Current Visit: Yes Status: Resolved Assessment and plan: Resolved. Mild hypernatremia. Sodium 150 on 10/14. Most likely secondary to fluid resuscitation. - Subjective Interval history: Patient reports mild abdominal pain. Fecal occult blood cause was negative. Stools are black but she is taking ferrous sulfate. No other bleeding. - Constitutional Vitals: Temp Pulse Resp BP Pulse Ox 98.9 F 83 18 121/43 97 10/17/16 12:00 10/17/16 14:00 10/17/16 12:00 10/17/16 14:00 10/17/16 14:00 General appearance: Present: cooperative, A&O X 2, pleasant, no acute distress, answers questions appropriately - Neck Neck exam general surgery: Present: supple, trachea midline. Absent: lymphadenopathy - Respiratory Respiratory exam: Present: rhonchi - Cardiovascular Cardiovascular exam: Present: RRR - GI/Abdominal GI/Abdominal exam: Present: normal bowel sounds, soft. Absent: distended, tenderness - Extremities Exam Extremities exam: Present: pedal edema - Back Exam Back exam: Absent: CVA tenderness (L), CVA tenderness (R) - Neurological Exam Neurological exam: Present: alert, oriented X3, no focal deficits, strengths equal and symetr throughout. Absent: facial droop, speech deficit - Skin Skin exam: Absent: rash Internal Medicine: Result - Labs CBC & Chem 7: 10/17/16 14:45 10/17/16 13:01 Labs: Short CBC 10/17/16 10/17/16 Range/Units 04:00 14:45 WBC 5.1 (4.3-11.1) K/mcL Hgb 7.3 L 7.3 L (11.5-15.4) g/dL Hct 24.2 L 24.7 L (35.3-44.9) % Plt Count 168 (140-400) K/mcL Neutrophils # 3.1 (1.6-8.9) K/mcL BMP 10/16/16 10/17/16 10/17/16 16:45 04:00 13:01 Sodium 142 Potassium 4.1 3.9 3.8 Chloride 107 Carbon Dioxide 26 BUN 11 Creatinine 0.86 Glucose 106 H Calcium 8.3 L - ABG Interpretation ABG results: ABG ABG pH 7.55 pH Units (7.32-7.45) H 10/13/16 23:53 ABG pCO2 34 mmHg (35-45) L 10/13/16 23:53 ABG pO2 73 mmHg (85-104) L 10/13/16 23:53 ABG O2 Saturation 96 % (95-98) 10/13/16 23:53 PT/INR, D-dimer PT 15.8 Seconds (9.4-12.1) H 10/12/16 04:00 - VTE Documentation of Mechanical Device: Intermittent pneumatic compression device Consult Discharge Plan - Plan Referrals: Ward Mcmanus MD [Primary Care Provider] - 10/21/16 2:00 pm () Eleni Edge CNP [Partnered Physician] - 10/12/16 8:45 am (in [place] office )
[2016-10-17] MEDS: Furosemide 240 MG in D5% in Water 96 ML IVC SCH ×2 (17:19)
[2016-10-17 20:09] LABS: Magnesium 1.8 mg/dL (1.6-2.6); Potassium 4.2 mEq/L (3.5-4.5)
[2016-10-18] MEDS: Ipratropium/Albuterol Neb 3 ML IH SCH ×7 (00:31→23:56)
[2016-10-18] MEDS: hydrALAZINE 25 MG TABLET PO SCH ×4 (01:22→23:46)
[2016-10-18] MEDS: Piperacillin/Tazobactam 3.375 GM in D5% in Water (Mini-Bag+) 100 ML IVPB SCH ×2 (01:22→09:40)
[2016-10-18] MEDS: Insulin LISPRO 300 UNITS/3 ML VIAL SQ SCH ×5 (01:23→21:10)
[2016-10-18] MEDS: Chlorhexidine Rinse 15 ML MOUTHWASH MM SCH ×3 (01:23→21:18)
[2016-10-18 05:50] LABS: Basophils % 0.6 %; Eosinophils # 0.2 K/mcL (0.0-0.6); Eosinophils % 3.9 %; Hematocrit 26.5 % (35.3-44.9); Hemoglobin 7.9 g/dL (11.5-15.4); Immature Granulocytes % 0.8 % (0-4); Immature Platelets 3.4 % (1.1-6.1); Lymphocytes # 1.3 K/mcL (0.6-4.6); Mean Corpuscular HGB Conc 29.8 g/dL (31.6-35.5); Mean Corpuscular Hemoglobin 26.5 pg (28.0-33.3); Mean Corpuscular Volume 88.9 fL (83.0-100.0); Mean Platelet Volume 9.4 fL (9.4-12.4); Monocytes # 0.3 K/mcL (0.0-1.3); Monocytes % 6.7 %; Neutrophils # 3.2 K/mcL (1.6-8.9); Platelet Count 202 K/mcL (140-400); Red Blood Count 2.98 M/mcL (3.82-4.97); Red Cell Distribution Width 19.2 % (11.5-14.5)
[2016-10-18 06:12] LABS: BUN/Creatinine Ratio 12 (6-26); Blood Urea Nitrogen 10 mg/dL (7-20); Carbon Dioxide 25 mEq/L (19-29); Chloride 108 mEq/L (98-109); Glucose 119 mg/dL (70-99); Magnesium 1.8 mg/dL (1.6-2.6); Osmolality,Calculated 298 (280-300); Potassium 3.6 mEq/L (3.5-4.5); Sodium 144 mEq/L (136-145); eGFR For African Americans > 60 (> 60); eGFR For Non-African Americans > 60 (> 60)
[2016-10-18] MEDS: Ondansetron 4 MG/2 ML VIAL IVP PRN (07:00)
[2016-10-18] MEDS: *HR* Enoxaparin 40 MG/0.4 ML SYRINGE SQ SCH (08:05)
[2016-10-18] MEDS: Ferrous Sulfate Oral Soln 300 MG/5 ML UDC PO SCH ×2 (09:39→17:02)
[2016-10-18] MEDS: Cholecalciferol (D-3) 1,000 UNIT TABLET PO SCH (09:40)
[2016-10-18] MEDS: Aspirin 81 MG TAB.CHEW PO SCH (09:40)
[2016-10-18] MEDS: Folic Acid 1 MG in D5% in Water 50 ML IVPB SCH (09:44)
[2016-10-18] MEDS: Pantoprazole 40 MG VIAL IVP SCH (09:46)
[2016-10-18] MEDS: Magnesium Sulfate 2 GM in D5% in Water 100 ML IVPB PRN (09:59)
[2016-10-18] MEDS ORDERED: 0.9 % Sodium Chloride 500 ML ONE (13:36)
--- NOTE | 2016-10-18 15:13 | Infectious Disease Progress No ---
Date of Encounter: 10/15/16 Time of Encounter: 20:00 - Assessment and Plan (1) Fever Current Visit: Yes Status: Acute resolved. Etiology not clear, possibly due to bacteremia. Afebrile since then. No signs of upper respiratory infection, no signs of pneumonia, no signs of abdominal source, no sign of meningitis. currently on Zosyn Cultures revealed Pseudomonas species: Susceptible to Zosyn Patient has been on treatment since 10/08/2016, continue Zosyn for now. We'll reevaluate on Tuesday and make further recommendations. 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 Repeat cultures on 10/10/16 no growth to date Source is not clear since the bacteria is not the same as the urinary tract infection Escherichia coli ESBL. Not sure if it's true infection versus a contaminant Concern for possible GI source if we can't find any other source. cultures revealing Pseudomonas Stutzeri (3) Bacteremia due to Gram-negative bacteria Current Visit: Yes Status: Acute Secondary to ESBL Escherichia coli Received 11 days worth of antibiotics including ertapenem then switched to Zosyn Urine does not appear grossly infected (4) UTI (urinary tract infection) Current Visit: Yes Status: Acute Urinary tract infection type: acute cystitis Hematuria presence: without hematuria Qualifiers: Urinary tract infection type: acute cystitis Hematuria presence: without hematuria Qualified Code(s): N30.00 - Acute cystitis without hematuria (5) Acute renal injury Current Visit: No Status: Acute (6) Altered mental status Current Visit: Yes Status: Acute Qualifiers: Altered mental status type: coma Coma depth: [place] coma 3-8 Coma timing : 24 hours or more after hospital admission Qualified Code(s): R40.2434 - [place] coma scale score 3-8, 24 hours or more after hospital admission (7) Coumadin toxicity Current Visit: Yes Status: Acute Qualifiers: Encounter type: initial encounter Injury intent: accidental or unintentional Qualified Code(s): T45.511A - Poisoning by anticoagulants, accidental (unintentional), initial encounter (8) Acute GI bleeding Current Visit: Yes Status: Acute (9) Anemia Current Visit: No Status: Acute Qualifiers: Anemia type: other cause Other causes of anemia: acute posthemorrhagic Qualified Code(s): D62 - Acute posthemorrhagic anemia (10) Afib Current Visit: No Status: Chronic Qualifiers: Atrial fibrillation type: paroxysmal Qualified Code(s): I48.0 - Paroxysmal atrial fibrillation - Subjective Interval history: this is a note postdated from 10/15/16. Patient seen and examined. Appears to be doing better clinically. Daughter is at bedside. Awake alert oriented. Had something to eat today. Denies any pain anywhere. No diarrhea. No Chest pain. This is the most alert and oriented that have seen her. Infect Dis PN-Objective Data - Labs CBC & Chem 7: 10/18/16 05:25 10/18/16 05:25 Labs: Laboratory Results - last 24 hr 10/17/16 10/17/16 10/17/16 07:37 11:53 14:45 WBC RBC Hgb 7.3 L Hct 24.7 L MCV MCH MCHC RDW Plt Count MPV Immature Gran % Seg Neutrophils % Lymphocytes % Monocytes % Eosinophils % Basophils % Neutrophils # Lymphocytes # Monocytes # Eosinophils # Basophils # Immature Plt Fraction Sodium Potassium Chloride Carbon Dioxide BUN Creatinine Est GFR ( Amer) Est GFR (Non-Af Amer) BUN/Creatinine Ratio Glucose POC Glucose 110 H 139 H Calculated Osmolality Calcium Magnesium Stool Occult Blood 10/17/16 10/17/16 10/17/16 15:57 16:18 19:10 WBC RBC Hgb Hct MCV MCH MCHC RDW Plt Count MPV Immature Gran % Seg Neutrophils % Lymphocytes % Monocytes % Eosinophils % Basophils % Neutrophils # Lymphocytes # Monocytes # Eosinophils # Basophils # Immature Plt Fraction Sodium Potassium 4.2 Chloride Carbon Dioxide BUN Creatinine Est GFR ( Amer) Est GFR (Non-Af Amer) BUN/Creatinine Ratio Glucose POC Glucose 139 H Calculated Osmolality Calcium Magnesium 1.8 Stool Occult Blood Positive A 10/17/16 10/18/16 10/18/16 21:05 05:25 05:25 WBC 5.1 RBC 2.98 L Hgb 7.9 L Hct 26.5 L MCV 88.9 MCH 26.5 L MCHC 29.8 L RDW 19.2 H Plt Count 202 MPV 9.4 Immature Gran % 0.8 Seg Neutrophils % 63.0 Lymphocytes % 25.0 Monocytes % 6.7 Eosinophils % 3.9 Basophils % 0.6 Neutrophils # 3.2 Lymphocytes # 1.3 Monocytes # 0.3 Eosinophils # 0.2 Basophils # 0.0 Immature Plt Fraction 3.4 Sodium 144 Potassium 3.6 Chloride 108 Carbon Dioxide 25 BUN 10 Creatinine 0.83 Est GFR ( Amer) > 60 Est GFR (Non-Af Amer) > 60 BUN/Creatinine Ratio 12 Glucose 119 H POC Glucose 134 H Calculated Osmolality 298 Calcium 9.0 Magnesium 1.8 Stool Occult Blood Cultures: Cultures 10/10/16 09:07 Blood Culture - Final Peripheral Venipuncture No growth. 10/10/16 07:17 Blood Culture - Final Peripheral Venipuncture No growth. 10/08/16 01:41 Blood Culture - Final Peripheral Venipuncture Pseudomonas stutzeri 10/11/16 15:15 Legionella Antigen - Final Urine,[place] 10/11/16 15:15 Streptococcus pneumoniae Antigen (M - Final Urine,[place] 10/08/16 01:20 Sputum Culture - Final Sputum 10/08/16 01:20 Urine Culture - Final Urine,Catheterized No growth. 09/28/16 18:30 Urine Culture - Final Urine,Clean Catch Escherichia coli ESBL Serology 10/17/16 10/16/16 10/11/16 Range/Units 15:57 19:20 15:15 Urine Color (Yellow) Urine Clarity (Clear) Urine pH (5.0-8.0) pH Units Ur Specific [place] (1.010-1.025) Urine Protein (Neg-Trace) mg/dL Urine Glucose (UA) (Normal) mg/dL Urine Ketones (Negative) mg/dL Urine Blood (Negative) Urine Nitrite (Negative) Urine Bilirubin (Negative) Urine Urobilinogen (Normal) mg/dL Ur Leukocyte Esterase (Negative) Urine Microscopic RBC (0-3) per hpf Urine Microscopic WBC (0-3) per hpf Ur Squamous Epith Cells (None-Few) per lpf Calcium Oxalate Crystal Amorphous Sediment (Few) Urine Bacteria (None-Few) per hpf Hyaline Casts (None-Few) per lpf Urine Mucus (Few) Urine Yeast (None Seen) per hpf Ur Culture Indicated? (NO) Urine Creatinine mg/dL Protein/Creatinin Ratio (0-0.20) mg/mg Urine Sodium mEq/L Urine Total Protein (1-14) mg/dL Stool Occult Blood Positive A Negative (Negative) A. baumannii (PCR) (Not Detect) [place] albicans (PCR) (Not Detect) C. glabrata (PCR) (Not Detect) C. krusei (PCR) (Not Detect) C. parapsilosis (PCR) (Not Detect) C. tropicalis (PCR) (Not Detect) Enterobacteriac sp PCR (Not Detect) E. cloacae complex PCR (Not Detect) Enterococcus sp PCR (Not Detect) E. coli (PCR) (Not Detect) H. influenzae (PCR) (Not Detect) HIV Ag/Ab Combo Qual Nonreactive (Nonreactive) Klebsiella oxytoca PCR (Not Detect) Klebsiella pneumoniae (Not Detect) List. monocytogenes PCR (Not Detect) N. meningitidis (PCR) (Not Detect) Proteus species (PCR) (Not Detect) Serratia marcescens PCR (Not Detect) Staphylococcus sp PCR (Not Detect) Staph aureus (PCR) (Not Detect) mecA-Methicil Res Gene (Not Detect) Streptococcus sp PCR (Not Detect) Group A Strep DNA (Not Detect) Group B Strep (PCR) (Not Detect) Strep pneumoniae (PCR) (Not Detect) P. aeruginosa (PCR) (Not Detect) [place]/B-Vanco Res Genes (Not Detect) KPC (blaKPC) Detect PCR (Not Detect) 10/08/16 09/30/16 09/30/16 Range/Units 01:41 11:25 11:25 Urine Color (Yellow) Urine Clarity (Clear) Urine pH (5.0-8.0) pH Units Ur Specific [place] (1.010-1.025) Urine Protein (Neg-Trace) mg/dL Urine Glucose (UA) (Normal) mg/dL Urine Ketones (Negative) mg/dL Urine Blood (Negative) Urine Nitrite (Negative) Urine Bilirubin (Negative) Urine Urobilinogen (Normal) mg/dL Ur Leukocyte Esterase (Negative) Urine Microscopic RBC (0-3) per hpf Urine Microscopic WBC (0-3) per hpf Ur Squamous Epith Cells (None-Few) per lpf Calcium Oxalate Crystal Amorphous Sediment (Few) Urine Bacteria (None-Few) per hpf Hyaline Casts (None-Few) per lpf Urine Mucus (Few) Urine Yeast (None Seen) per hpf Ur Culture Indicated? (NO) Urine Creatinine 134 mg/dL Protein/Creatinin Ratio 0.19 (0-0.20) mg/mg Urine Sodium 33.0 mEq/L Urine Total Protein 26 H (1-14) mg/dL Stool Occult Blood (Negative) A. baumannii (PCR) Not Detected (Not Detect) [place] albicans (PCR) Not Detected (Not Detect) C. glabrata (PCR) Not Detected (Not Detect) C. krusei (PCR) Not Detected (Not Detect) C. parapsilosis (PCR) Not Detected (Not Detect) C. tropicalis (PCR) Not Detected (Not Detect) Enterobacteriac sp PCR Not Detected (Not Detect) E. cloacae complex PCR Not Detected (Not Detect) Enterococcus sp PCR Not Detected (Not Detect) E. coli (PCR) Not Detected (Not Detect) H. influenzae (PCR) Not Detected (Not Detect) HIV Ag/Ab Combo Qual (Nonreactive) Klebsiella oxytoca PCR Not Detected (Not Detect) Klebsiella pneumoniae Not Detected (Not Detect) List. monocytogenes PCR Not Detected (Not Detect) N. meningitidis (PCR) Not Detected (Not Detect) Proteus species (PCR) Not Detected (Not Detect) Serratia marcescens PCR Not Detected (Not Detect) Staphylococcus sp PCR Not Detected (Not Detect) Staph aureus (PCR) Not Detected (Not Detect) mecA-Methicil Res Gene N/A (Not Detect) Streptococcus sp PCR Not Detected (Not Detect) Group A Strep DNA Not Detected (Not Detect) Group B Strep (PCR) Not Detected (Not Detect) Strep pneumoniae (PCR) Not Detected (Not Detect) P. aeruginosa (PCR) Not Detected (Not Detect) [place]/B-Vanco Res Genes N/A (Not Detect) KPC (blaKPC) Detect PCR N/A (Not Detect) 09/28/16 Range/Units 18:30 Urine Color Dark Yellow (Yellow) Urine Clarity Turbid A (Clear) Urine pH 5.5 (5.0-8.0) pH Units Ur Specific [place] > 1.030 H (1.010-1.025) Urine Protein >=1000 H (Neg-Trace) mg/dL Urine Glucose (UA) 100 H (Normal) mg/dL Urine Ketones Trace H (Negative) mg/dL Urine Blood Negative (Negative) Urine Nitrite Negative (Negative) Urine Bilirubin Small H (Negative) Urine Urobilinogen Normal (Normal) mg/dL Ur Leukocyte Esterase Moderate H (Negative) Urine Microscopic RBC 0-3 (0-3) per hpf Urine Microscopic WBC TNTC H (0-3) per hpf Ur Squamous Epith Cells Many H (None-Few) per lpf Calcium Oxalate Crystal Present Amorphous Sediment Moderate H (Few) Urine Bacteria Moderate H (None-Few) per hpf Hyaline Casts Few (None-Few) per lpf Urine Mucus Few (Few) Urine Yeast Few H (None Seen) per hpf Ur Culture Indicated? YES A (NO) Urine Creatinine mg/dL Protein/Creatinin Ratio (0-0.20) mg/mg Urine Sodium mEq/L Urine Total Protein (1-14) mg/dL Stool Occult Blood (Negative) A. baumannii (PCR) (Not Detect) [place] albicans (PCR) (Not Detect) C. glabrata (PCR) (Not Detect) C. krusei (PCR) (Not Detect) C. parapsilosis (PCR) (Not Detect) C. tropicalis (PCR) (Not Detect) Enterobacteriac sp PCR (Not Detect) E. cloacae complex PCR (Not Detect) Enterococcus sp PCR (Not Detect) E. coli (PCR) (Not Detect) H. influenzae (PCR) (Not Detect) HIV Ag/Ab Combo Qual (Nonreactive) Klebsiella oxytoca PCR (Not Detect) Klebsiella pneumoniae (Not Detect) List. monocytogenes PCR (Not Detect) N. meningitidis (PCR) (Not Detect) Proteus species (PCR) (Not Detect) Serratia marcescens PCR (Not Detect) Staphylococcus sp PCR (Not Detect) Staph aureus (PCR) (Not Detect) mecA-Methicil Res Gene (Not Detect) Streptococcus sp PCR (Not Detect) Group A Strep DNA (Not Detect) Group B Strep (PCR) (Not Detect) Strep pneumoniae (PCR) (Not Detect) P. aeruginosa (PCR) (Not Detect) [place]/B-Vanco Res Genes (Not Detect) KPC (blaKPC) Detect PCR (Not Detect) Exam - Constitutional Vitals: Temp Pulse Resp BP Pulse Ox 98.2 F 68 18 129/60 98 10/18/16 11:58 10/18/16 13:29 10/18/16 11:58 10/18/16 11:58 10/18/16 13:29 General appearance: cooperative, no acute distress - Head Head exam: Present: atraumatic, normocephalic - Respiratory Respiratory exam: Present: CTAB - Cardiovascular Cardiovascular exam: Present: RRR, +S1, +S2 - GI/Abdominal GI/Abdominal exam: Present: normal bowel sounds, soft. Absent: tenderness - Extremities Exam Extremities exam: Present: normal inspection. Absent: pedal edema - Neurological Exam Neurological exam: Present: alert, oriented X3 - VTE Documentation of Mechanical Device: Intermittent pneumatic compression device Consult Discharge Plan - Plan Referrals: Ward Mcmanus MD [Primary Care Provider] - 10/21/16 2:00 pm () Cleveland Mascorro MD [Partnered Physician] - 11/05/16 12:00 pm
[2016-10-18] MEDS ORDERED: Magnesium Oxide 400 MG TABLET PO SCH (16:15)
--- NOTE | 2016-10-18 16:35 | Internal Med Progress Note ---
Date of Encounter: 10/18/16 Time of Encounter: 11:00 - Assessment and plan (1) Bacteremia Current Visit: Yes Status: Acute Assessment and plan: Pseudomonas stutzeri Bacteremia. History of ESBL UTI 09/28. Blood cultures from 10/08/16 grew Pseudomonas stutzeri Repeat cultures from 10/10/16 show NGTD. Clinically slowly improving. Remains afebrile since 10/08 and WBC is normal. discussed case with Dr Roy from ID team, plan to switch to oral levaquin for a total course of 14 days after negative blood cultures. stop Zosyn. (2) Anemia Current Visit: No Status: Acute Assessment and plan: Patient presented with hemoglobin of 6.4 on admission 09/27. Acute blood loss anemia secondary to GI bleed in the setting of supratherapeutic INR at 5. Coumadin held. Patient was transfused with 3 units of packed red blood cells and 1 FFP. Colonoscopy 09/08/2016 showed 10mm and 14mm tubular adenoma, diverticulosis, internal hemorrhoids, repeat 3 years. EGD 09/08/2016 showed single nodule in stomach, gastropathy Ferritin 122. Iron 33. Percent saturation 12. Normal B12. low folate. fecal occult blood test positive on 10/17. today, Hemoglobin at 7.9. Close monitor. no signs of external bleeding. hemodynamically stable. continue on folate. Qualifiers: Anemia type: other cause Other causes of anemia: acute posthemorrhagic Qualified Code(s): D62 - Acute posthemorrhagic anemia (3) Acute respiratory failure with hypoxia Current Visit: Yes Status: Acute Assessment and plan: Secondary to poor respiratory effort due to metabolic encephalopathy and suspected pulmonary edema likely from fluid resuscitation. Patient required mechanical ventilation on admission and was successfully extubated 10/12. speech therapy consulted and recommends puree diet CXR 10/11/16, no obvious pneumonia CXR 10/13 shows cardiomegaly with vascular congestion and moderate right pleural effusion, increasing airspace disease in right lower lung. Good diuresis. Clinically slowly improving, doing well on 2L NC. continue Lasix drip and nebulizations. (4) Acute worsening of stage 3 chronic kidney disease Current Visit: Yes Status: Acute Assessment and plan: resolved. pre-renal from acute blood loss anemia. close monitoring. Avoid nephrotoxic agents as possible (5) Toxic metabolic encephalopathy Current Visit: Yes Status: Acute Assessment and plan: Resolved. 10/14 off ativan and Celexa. Appreciate psychiatry input. (6) [place] thrombus Current Visit: Yes Status: Acute Assessment and plan: Patient with known atrial flutter with [place] thrombus. Holding anticoagulation due to multiple episodes of acute anemia. Patient and family aware of high risk for CVA. 09/27/16 now she presents with weakness and bright red blood per rectum. Hemoglobin 6.4. INR supratherapeutic at 5. She was transfused with 3 units PRBC, 1 FFP and vitamin K. 09/07/16 hospitalized for acute anemia, Hgb 5.7. She was transfused with 3 units PRBC and underwent EGD/colonoscopy which was negative for active bleeding (2 non -bleeding polyps were removed). By discharge, she was re-started on coumadin with lovenox bridging. (7) Atrial fibrillation and flutter Current Visit: Yes Status: Resolved Assessment and plan: Patient with known history of poorly-controlled atrial flutter. He is not a candidate for rhythm control strategy due to [place] thrombus. Patient takes digoxin and Cardizem at home. Appreciate cardiology input. Heart rate is adequate. Continue metoprolol. Discontinue digoxin and Cardizem at discharge. (8) Diabetes mellitus type 2, noninsulin dependent Current Visit: No Status: Chronic Assessment and plan: adequate Accu-Cheks. Continue sliding scale, diabetic diet. (9) Chronic blood loss anemia Current Visit: No Status: Acute Assessment and plan: plan as above. (10) Acute hypernatremia Current Visit: Yes Status: Resolved Assessment and plan: Resolved. Mild hypernatremia. Sodium 150 on 10/14. Most likely secondary to fluid resuscitation. - Subjective Interval history: Patient and family reports some anxiety overnight, they would prefer her celexa to be resumed. No other bleeding. - Constitutional Vitals: Temp Pulse Resp BP Pulse Ox 98.2 F 68 18 129/60 98 10/18/16 11:58 10/18/16 13:29 10/18/16 11:58 10/18/16 11:58 10/18/16 13:29 General appearance: Present: cooperative, A&O X 2, pleasant, no acute distress, answers questions appropriately - Neck Neck exam general surgery: Present: supple, trachea midline. Absent: lymphadenopathy - Respiratory Respiratory exam: Present: CTAB - Cardiovascular Cardiovascular exam: Present: RRR - GI/Abdominal GI/Abdominal exam: Present: normal bowel sounds, soft. Absent: distended, tenderness - Extremities Exam Extremities exam: Present: pedal edema (2+ Le edema, improved compared last week ) - Neurological Exam Neurological exam: Present: alert, oriented X3, no focal deficits. Absent: facial droop, speech deficit - Skin Skin exam: Absent: rash Internal Medicine: Result - Labs CBC & Chem 7: 10/18/16 05:25 10/18/16 05:25 Labs: Short CBC 10/18/16 Range/Units 05:25 WBC 5.1 (4.3-11.1) K/mcL Hgb 7.9 L (11.5-15.4) g/dL Hct 26.5 L (35.3-44.9) % Plt Count 202 (140-400) K/mcL Neutrophils # 3.2 (1.6-8.9) K/mcL BMP 10/17/16 10/18/16 19:10 05:25 Sodium 144 Potassium 4.2 3.6 Chloride 108 Carbon Dioxide 25 BUN 10 Creatinine 0.83 Glucose 119 H Calcium 9.0 - ABG Interpretation ABG results: ABG ABG pH 7.55 pH Units (7.32-7.45) H 10/13/16 23:53 ABG pCO2 34 mmHg (35-45) L 10/13/16 23:53 ABG pO2 73 mmHg (85-104) L 10/13/16 23:53 ABG O2 Saturation 96 % (95-98) 10/13/16 23:53 PT/INR, D-dimer PT 15.8 Seconds (9.4-12.1) H 10/12/16 04:00 - VTE Documentation of Mechanical Device: Intermittent pneumatic compression device Consult Discharge Plan - Plan Referrals: Ward Mcmanus MD [Primary Care Provider] - 10/21/16 2:00 pm () Cleveland Mascorro MD [Partnered Physician] - 11/05/16 12:00 pm
[2016-10-18] MEDS: levoFLOXacin 500 MG TABLET PO SCH (17:02)
[2016-10-18 18:26] LABS: Ionized Calcium 1.2 mmol/L (1.15-1.35)
[2016-10-19] MEDS: Ondansetron 4 MG/2 ML VIAL IVP PRN (03:57)
[2016-10-19] MEDS: Ipratropium/Albuterol Neb 3 ML IH SCH ×5 (04:05→20:30)
[2016-10-19 04:13] LABS: Ionized Calcium 1.23 mmol/L (1.15-1.35)
[2016-10-19 04:15] LABS: Basophils % 0.6 %; Eosinophils # 0.2 K/mcL (0.0-0.6); Eosinophils % 4.3 %; Hematocrit 25.3 % (35.3-44.9); Hemoglobin 7.6 g/dL (11.5-15.4); Immature Granulocytes % 0.6 % (0-4); Lymphocytes # 1.4 K/mcL (0.6-4.6); Lymphocytes % 25.9 %; Mean Corpuscular Hemoglobin 26.4 pg (28.0-33.3); Mean Corpuscular Volume 87.8 fL (83.0-100.0); Monocytes # 0.4 K/mcL (0.0-1.3); Monocytes % 7.9 %; Neutrophils # 3.2 K/mcL (1.6-8.9); Platelet Count 197 K/mcL (140-400); Red Blood Count 2.88 M/mcL (3.82-4.97); Red Cell Distribution Width 18.7 % (11.5-14.5); Segmented Neutrophils % 60.7 %
[2016-10-19 04:19] LABS: BUN/Creatinine Ratio 13 (6-26); Blood Urea Nitrogen 10 mg/dL (7-20); Calcium 9.1 mg/dL (8.6-10.8); Carbon Dioxide 25 mEq/L (19-29); Chloride 106 mEq/L (98-109); Glucose 112 mg/dL (70-99); Osmolality,Calculated 292 (280-300); Potassium 3.5 mEq/L (3.5-4.5); Sodium 141 mEq/L (136-145); eGFR For African Americans > 60 (> 60); eGFR For Non-African Americans > 60 (> 60)
[2016-10-19 05:07] LABS: Magnesium 1.5 mg/dL (1.6-2.6)
[2016-10-19] MEDS: Magnesium Sulfate 2 GM in D5% in Water 100 ML IVPB PRN ×2 (05:21→14:23)
[2016-10-19] MEDS: *HR* Enoxaparin 40 MG/0.4 ML SYRINGE SQ SCH (06:25)
[2016-10-19] MEDS ORDERED: Magnesium Sulfate 1 GM in D5% in Water 100 ML IVPB ONE (08:26)
[2016-10-19] MEDS: Ferrous Sulfate Oral Soln 300 MG/5 ML UDC PO SCH ×2 (08:55→17:14)
[2016-10-19] MEDS: Chlorhexidine Rinse 15 ML MOUTHWASH MM SCH ×2 (08:55→21:15)
[2016-10-19] MEDS: Pantoprazole 40 MG VIAL IVP SCH (08:55)
[2016-10-19] MEDS: levoFLOXacin 500 MG TABLET PO SCH (08:55)
[2016-10-19] MEDS: Magnesium Oxide 400 MG TABLET PO SCH ×2 (08:56→21:15)
[2016-10-19] MEDS: Aspirin 81 MG TAB.CHEW PO SCH (08:56)
[2016-10-19] MEDS: hydrALAZINE 25 MG TABLET PO SCH ×2 (08:56→17:14)
[2016-10-19] MEDS: Cholecalciferol (D-3) 1,000 UNIT TABLET PO SCH (08:56)
[2016-10-19] MEDS: Insulin LISPRO 300 UNITS/3 ML VIAL SQ SCH ×4 (08:59→20:54)
[2016-10-19 12:23] LABS: Magnesium 1.9 mg/dL (1.6-2.6); Potassium 3.8 mEq/L (3.5-4.5)
[2016-10-19] MEDS: Folic Acid 1 MG in D5% in Water 50 ML IVPB SCH (12:25)
--- NOTE | 2016-10-19 14:23 | Infectious Disease Progress No ---
Date of Encounter: 10/18/16 Time of Encounter: 15:00 - Assessment and Plan (1) Fever Current Visit: Yes Status: Acute resolved. Etiology not clear, possibly due to bacteremia. Afebrile since then. No signs of upper respiratory infection, no signs of pneumonia, no signs of abdominal source, no sign of meningitis. currently on Zosyn Cultures revealed Pseudomonas species: Susceptible to Zosyn Patient has been on treatment since 10/08/2016, continue Zosyn for now. We'll reevaluate on Tuesday and make further recommendations. 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 Repeat cultures on 10/10/16 no growth to date Source is not clear since the bacteria is not the same as the urinary tract infection Escherichia coli ESBL. Not sure if it's true infection versus a contaminant Concern for possible GI source if we can't find any other source. cultures revealing Pseudomonas Stutzeri d/w hospitalist team, consider d/cing zosyn and staring levaquin to finish a 14 day course. Discussed with Dr. Pearson, we'll sign off the case for now. Please let us know if you have any more assistance in the future. (3) Bacteremia due to Gram-negative bacteria Current Visit: Yes Status: Acute Secondary to ESBL Escherichia coli Received 11 days worth of antibiotics including ertapenem then switched to Zosyn Urine does not appear grossly infected (4) UTI (urinary tract infection) Current Visit: Yes Status: Acute Urinary tract infection type: acute cystitis Hematuria presence: without hematuria Qualifiers: Urinary tract infection type: acute cystitis Hematuria presence: without hematuria Qualified Code(s): N30.00 - Acute cystitis without hematuria (5) Acute renal injury Current Visit: No Status: Acute (6) Altered mental status Current Visit: Yes Status: Acute Qualifiers: Altered mental status type: coma Coma depth: [place] coma 3-8 Coma timing : 24 hours or more after hospital admission Qualified Code(s): R40.2434 - [place] coma scale score 3-8, 24 hours or more after hospital admission (7) Coumadin toxicity Current Visit: Yes Status: Acute Qualifiers: Encounter type: initial encounter Injury intent: accidental or unintentional Qualified Code(s): T45.511A - Poisoning by anticoagulants, accidental (unintentional), initial encounter (8) Acute GI bleeding Current Visit: Yes Status: Acute (9) Anemia Current Visit: No Status: Acute Qualifiers: Anemia type: other cause Other causes of anemia: acute posthemorrhagic Qualified Code(s): D62 - Acute posthemorrhagic anemia (10) Afib Current Visit: No Status: Chronic Qualifiers: Atrial fibrillation type: paroxysmal Qualified Code(s): I48.0 - Paroxysmal atrial fibrillation - Subjective Interval history: this is a note postdated from 10/15/16. Patient seen and examined. Appears to be doing better clinically. Daughter is at bedside. Awake alert oriented. Had something to eat today. Denies any pain anywhere. No diarrhea. No Chest pain. This is the most alert and oriented that have seen her. Infect Dis PN-Objective Data - Labs CBC & Chem 7: 10/19/16 03:49 10/19/16 12:08 Labs: Laboratory Results - last 24 hr 10/18/16 10/18/16 10/18/16 06:59 11:49 16:42 WBC RBC Hgb Hct MCV MCH MCHC RDW Plt Count MPV Immature Gran % Seg Neutrophils % Lymphocytes % Monocytes % Eosinophils % Basophils % Neutrophils # Lymphocytes # Monocytes # Eosinophils # Basophils # Sodium Potassium Chloride Carbon Dioxide BUN Creatinine Est GFR ( Amer) Est GFR (Non-Af Amer) BUN/Creatinine Ratio Glucose POC Glucose 108 H 149 H 124 H Calculated Osmolality Calcium Ionized Calcium Phosphorus Magnesium 10/18/16 10/18/16 10/19/16 17:55 20:35 03:49 WBC 5.3 RBC 2.88 L Hgb 7.6 L Hct 25.3 L MCV 87.8 MCH 26.4 L MCHC 30.0 L RDW 18.7 H Plt Count 197 MPV 10.0 Immature Gran % 0.6 Seg Neutrophils % 60.7 Lymphocytes % 25.9 Monocytes % 7.9 Eosinophils % 4.3 Basophils % 0.6 Neutrophils # 3.2 Lymphocytes # 1.4 Monocytes # 0.4 Eosinophils # 0.2 Basophils # 0.0 Sodium Potassium 4.0 Chloride Carbon Dioxide BUN Creatinine Est GFR ( Amer) Est GFR (Non-Af Amer) BUN/Creatinine Ratio Glucose POC Glucose 145 H Calculated Osmolality Calcium Ionized Calcium 1.20 Phosphorus 3.0 Magnesium 2.0 10/19/16 10/19/16 10/19/16 03:49 03:49 12:08 WBC RBC Hgb Hct MCV MCH MCHC RDW Plt Count MPV Immature Gran % Seg Neutrophils % Lymphocytes % Monocytes % Eosinophils % Basophils % Neutrophils # Lymphocytes # Monocytes # Eosinophils # Basophils # Sodium 141 Potassium 3.5 3.8 Chloride 106 Carbon Dioxide 25 BUN 10 Creatinine 0.75 Est GFR ( Amer) > 60 Est GFR (Non-Af Amer) > 60 BUN/Creatinine Ratio 13 Glucose 112 H POC Glucose Calculated Osmolality 292 Calcium 9.1 Ionized Calcium 1.23 Phosphorus 3.0 Magnesium 1.5 L 1.9 Cultures: Cultures 10/10/16 09:07 Blood Culture - Final Peripheral Venipuncture No growth. 10/10/16 07:17 Blood Culture - Final Peripheral Venipuncture No growth. 10/08/16 01:41 Blood Culture - Final Peripheral Venipuncture Pseudomonas stutzeri 10/11/16 15:15 Legionella Antigen - Final Urine,[place] 10/11/16 15:15 Streptococcus pneumoniae Antigen (M - Final Urine,[place] 10/08/16 01:20 Sputum Culture - Final Sputum 10/08/16 01:20 Urine Culture - Final Urine,Catheterized No growth. 09/28/16 18:30 Urine Culture - Final Urine,Clean Catch Escherichia coli ESBL Serology 10/17/16 10/16/16 10/11/16 Range/Units 15:57 19:20 15:15 Urine Color (Yellow) Urine Clarity (Clear) Urine pH (5.0-8.0) pH Units Ur Specific [place] (1.010-1.025) Urine Protein (Neg-Trace) mg/dL Urine Glucose (UA) (Normal) mg/dL Urine Ketones (Negative) mg/dL Urine Blood (Negative) Urine Nitrite (Negative) Urine Bilirubin (Negative) Urine Urobilinogen (Normal) mg/dL Ur Leukocyte Esterase (Negative) Urine Microscopic RBC (0-3) per hpf Urine Microscopic WBC (0-3) per hpf Ur Squamous Epith Cells (None-Few) per lpf Calcium Oxalate Crystal Amorphous Sediment (Few) Urine Bacteria (None-Few) per hpf Hyaline Casts (None-Few) per lpf Urine Mucus (Few) Urine Yeast (None Seen) per hpf Ur Culture Indicated? (NO) Urine Creatinine mg/dL Protein/Creatinin Ratio (0-0.20) mg/mg Urine Sodium mEq/L Urine Total Protein (1-14) mg/dL Stool Occult Blood Positive A Negative (Negative) A. baumannii (PCR) (Not Detect) [place] albicans (PCR) (Not Detect) C. glabrata (PCR) (Not Detect) C. krusei (PCR) (Not Detect) C. parapsilosis (PCR) (Not Detect) C. tropicalis (PCR) (Not Detect) Enterobacteriac sp PCR (Not Detect) E. cloacae complex PCR (Not Detect) Enterococcus sp PCR (Not Detect) E. coli (PCR) (Not Detect) H. influenzae (PCR) (Not Detect) HIV Ag/Ab Combo Qual Nonreactive (Nonreactive) Klebsiella oxytoca PCR (Not Detect) Klebsiella pneumoniae (Not Detect) List. monocytogenes PCR (Not Detect) N. meningitidis (PCR) (Not Detect) Proteus species (PCR) (Not Detect) Serratia marcescens PCR (Not Detect) Staphylococcus sp PCR (Not Detect) Staph aureus (PCR) (Not Detect) mecA-Methicil Res Gene (Not Detect) Streptococcus sp PCR (Not Detect) Group A Strep DNA (Not Detect) Group B Strep (PCR) (Not Detect) Strep pneumoniae (PCR) (Not Detect) P. aeruginosa (PCR) (Not Detect) [place]/B-Vanco Res Genes (Not Detect) KPC (blaKPC) Detect PCR (Not Detect) 10/08/16 09/30/16 09/30/16 Range/Units 01:41 11:25 11:25 Urine Color (Yellow) Urine Clarity (Clear) Urine pH (5.0-8.0) pH Units Ur Specific [place] (1.010-1.025) Urine Protein (Neg-Trace) mg/dL Urine Glucose (UA) (Normal) mg/dL Urine Ketones (Negative) mg/dL Urine Blood (Negative) Urine Nitrite (Negative) Urine Bilirubin (Negative) Urine Urobilinogen (Normal) mg/dL Ur Leukocyte Esterase (Negative) Urine Microscopic RBC (0-3) per hpf Urine Microscopic WBC (0-3) per hpf Ur Squamous Epith Cells (None-Few) per lpf Calcium Oxalate Crystal Amorphous Sediment (Few) Urine Bacteria (None-Few) per hpf Hyaline Casts (None-Few) per lpf Urine Mucus (Few) Urine Yeast (None Seen) per hpf Ur Culture Indicated? (NO) Urine Creatinine 134 mg/dL Protein/Creatinin Ratio 0.19 (0-0.20) mg/mg Urine Sodium 33.0 mEq/L Urine Total Protein 26 H (1-14) mg/dL Stool Occult Blood (Negative) A. baumannii (PCR) Not Detected (Not Detect) [place] albicans (PCR) Not Detected (Not Detect) C. glabrata (PCR) Not Detected (Not Detect) C. krusei (PCR) Not Detected (Not Detect) C. parapsilosis (PCR) Not Detected (Not Detect) C. tropicalis (PCR) Not Detected (Not Detect) Enterobacteriac sp PCR Not Detected (Not Detect) E. cloacae complex PCR Not Detected (Not Detect) Enterococcus sp PCR Not Detected (Not Detect) E. coli (PCR) Not Detected (Not Detect) H. influenzae (PCR) Not Detected (Not Detect) HIV Ag/Ab Combo Qual (Nonreactive) Klebsiella oxytoca PCR Not Detected (Not Detect) Klebsiella pneumoniae Not Detected (Not Detect) List. monocytogenes PCR Not Detected (Not Detect) N. meningitidis (PCR) Not Detected (Not Detect) Proteus species (PCR) Not Detected (Not Detect) Serratia marcescens PCR Not Detected (Not Detect) Staphylococcus sp PCR Not Detected (Not Detect) Staph aureus (PCR) Not Detected (Not Detect) mecA-Methicil Res Gene N/A (Not Detect) Streptococcus sp PCR Not Detected (Not Detect) Group A Strep DNA Not Detected (Not Detect) Group B Strep (PCR) Not Detected (Not Detect) Strep pneumoniae (PCR) Not Detected (Not Detect) P. aeruginosa (PCR) Not Detected (Not Detect) [place]/B-Vanco Res Genes N/A (Not Detect) KPC (blaKPC) Detect PCR N/A (Not Detect) 09/28/16 Range/Units 18:30 Urine Color Dark Yellow (Yellow) Urine Clarity Turbid A (Clear) Urine pH 5.5 (5.0-8.0) pH Units Ur Specific [place] > 1.030 H (1.010-1.025) Urine Protein >=1000 H (Neg-Trace) mg/dL Urine Glucose (UA) 100 H (Normal) mg/dL Urine Ketones Trace H (Negative) mg/dL Urine Blood Negative (Negative) Urine Nitrite Negative (Negative) Urine Bilirubin Small H (Negative) Urine Urobilinogen Normal (Normal) mg/dL Ur Leukocyte Esterase Moderate H (Negative) Urine Microscopic RBC 0-3 (0-3) per hpf Urine Microscopic WBC TNTC H (0-3) per hpf Ur Squamous Epith Cells Many H (None-Few) per lpf Calcium Oxalate Crystal Present Amorphous Sediment Moderate H (Few) Urine Bacteria Moderate H (None-Few) per hpf Hyaline Casts Few (None-Few) per lpf Urine Mucus Few (Few) Urine Yeast Few H (None Seen) per hpf Ur Culture Indicated? YES A (NO) Urine Creatinine mg/dL Protein/Creatinin Ratio (0-0.20) mg/mg Urine Sodium mEq/L Urine Total Protein (1-14) mg/dL Stool Occult Blood (Negative) A. baumannii (PCR) (Not Detect) [place]raine albicans (PCR) (Not Detect) C. glabrata (PCR) (Not Detect) C. krusei (PCR) (Not Detect) C. parapsilosis (PCR) (Not Detect) C. tropicalis (PCR) (Not Detect) Enterobacteriac sp PCR (Not Detect) E. cloacae complex PCR (Not Detect) Enterococcus sp PCR (Not Detect) E. coli (PCR) (Not Detect) H. influenzae (PCR) (Not Detect) HIV Ag/Ab Combo Qual (Nonreactive) Klebsiella oxytoca PCR (Not Detect) Klebsiella pneumoniae (Not Detect) List. monocytogenes PCR (Not Detect) N. meningitidis (PCR) (Not Detect) Proteus species (PCR) (Not Detect) Serratia marcescens PCR (Not Detect) Staphylococcus sp PCR (Not Detect) Staph aureus (PCR) (Not Detect) mecA-Methicil Res Gene (Not Detect) Streptococcus sp PCR (Not Detect) Group A Strep DNA (Not Detect) Group B Strep (PCR) (Not Detect) Strep pneumoniae (PCR) (Not Detect) P. aeruginosa (PCR) (Not Detect) [place]/B-Vanco Res Genes (Not Detect) KPC (blaKPC) Detect PCR (Not Detect) Exam - Constitutional Vitals: Temp Pulse Resp BP Pulse Ox 98.6 F 79 14 123/65 100 10/19/16 12:16 10/19/16 12:16 10/19/16 12:16 10/19/16 12:16 10/19/16 12:16 - VTE Documentation of Mechanical Device: Intermittent pneumatic compression device Consult Discharge Plan - Plan Referrals: Ward Mcmanus MD [Primary Care Provider] - 10/21/16 2:00 pm () Cleveland Mascorro MD [Partnered Physician] - 11/05/16 12:00 pm
[2016-10-19] MEDS: Furosemide 20 MG TABLET PO SCH (17:15)
--- NOTE | 2016-10-19 17:57 | Internal Med Progress Note ---
Date of Encounter: 10/19/16 Time of Encounter: 13:30 - Assessment and plan (1) Bacteremia Current Visit: Yes Status: Acute Assessment and plan: Pseudomonas stutzeri Bacteremia. History of ESBL UTI 09/28. Blood cultures from 10/08/16 grew Pseudomonas stutzeri Repeat cultures from 10/10/16 show NGTD. Clinically slowly improving. Remains afebrile since 10/08 and WBC is normal. received IV Zosyn for 10 days. continue oral levaquin for a total course of 14 days after negative blood cultures (last day is 10/22). (2) Anemia Current Visit: No Status: Acute Assessment and plan: Patient presented with hemoglobin of 6.4 on admission 09/27. Acute blood loss anemia secondary to GI bleed in the setting of supratherapeutic INR at 5. Coumadin held. Patient was transfused with 3 units of packed red blood cells and 1 FFP. Colonoscopy 09/08/2016 showed 10mm and 14mm tubular adenoma, diverticulosis, internal hemorrhoids, repeat 3 years. EGD 09/08/2016 showed single nodule in stomach, gastropathy Ferritin 122. Iron 33. Percent saturation 12. Normal B12. low folate. fecal occult blood test positive on 10/17. today, hemoglobin at 7.6. Close monitor. no signs of external bleeding. hemodynamically stable. continue on folate. Qualifiers: Anemia type: other cause Other causes of anemia: acute posthemorrhagic Qualified Code(s): D62 - Acute posthemorrhagic anemia (3) Acute respiratory failure with hypoxia Current Visit: Yes Status: Acute Assessment and plan: Secondary to poor respiratory effort due to metabolic encephalopathy and suspected pulmonary edema likely from fluid resuscitation. Patient required mechanical ventilation on admission and was successfully extubated 10/12. speech therapy consulted and recommends puree diet CXR 10/11/16, no obvious pneumonia CXR 10/13 shows cardiomegaly with vascular congestion and moderate right pleural effusion, increasing airspace disease in right lower lung. Good diuresis. Clinically slowly improving, doing well on 2L NC. stop Lasix drip. start oral lasix. continue nebulizations. (4) Acute worsening of stage 3 chronic kidney disease Current Visit: Yes Status: Acute Assessment and plan: resolved. pre-renal from acute blood loss anemia. close monitoring. Avoid nephrotoxic agents as possible (5) Toxic metabolic encephalopathy Current Visit: Yes Status: Acute Assessment and plan: Resolved. 10/14 off ativan and Celexa. Appreciate psychiatry input. (6) LA thrombus Current Visit: Yes Status: Acute Assessment and plan: Patient with known atrial flutter with COSTA thrombus. Holding anticoagulation due to multiple episodes of acute anemia. Patient and family aware of high risk for CVA. 09/27/16 now she presents with weakness and bright red blood per rectum. Hemoglobin 6.4. INR supratherapeutic at 5. She was transfused with 3 units PRBC, 1 FFP and vitamin K. 09/07/16 hospitalized for acute anemia, Hgb 5.7. She was transfused with 3 units PRBC and underwent EGD/colonoscopy which was negative for active bleeding (2 non -bleeding polyps were removed). By discharge, she was re-started on coumadin with lovenox bridging. (7) Atrial fibrillation and flutter Current Visit: Yes Status: Resolved Assessment and plan: Patient with known history of poorly-controlled atrial flutter. He is not a candidate for rhythm control strategy due to COSTA thrombus. Patient takes digoxin and Cardizem at home. Appreciate cardiology input. Heart rate is adequate. Continue metoprolol. Discontinue digoxin and Cardizem at discharge. (8) Diabetes mellitus type 2, noninsulin dependent Current Visit: No Status: Chronic Assessment and plan: adequate Accu-Cheks. Continue sliding scale, diabetic diet. (9) Chronic blood loss anemia Current Visit: No Status: Acute Assessment and plan: plan as above. (10) Acute hypernatremia Current Visit: Yes Status: Resolved Assessment and plan: Resolved. Mild hypernatremia. Sodium 150 on 10/14. Most likely secondary to fluid resuscitation. - Subjective Interval history: Patient and family reports insomnia, patient slept only 1 hour. - Constitutional Vitals: Temp Pulse Resp BP Pulse Ox 98.3 F 75 18 134/74 95 10/19/16 16:25 10/19/16 16:25 10/19/16 16:25 10/19/16 16:25 10/19/16 16:25 General appearance: Present: cooperative, A&O X 2, pleasant, no acute distress, answers questions appropriately - Neck Neck exam general surgery: Present: supple, trachea midline. Absent: lymphadenopathy - Respiratory Respiratory exam: Present: CTAB - Cardiovascular Cardiovascular exam: Present: RRR - GI/Abdominal GI/Abdominal exam: Present: normal bowel sounds, soft. Absent: distended, tenderness - Extremities Exam Extremities exam: Present: pedal edema (1+ Le edema) - Back Exam Back exam: Absent: CVA tenderness (L), CVA tenderness (R) Internal Medicine: Result - Labs CBC & Chem 7: 10/19/16 03:49 10/19/16 12:08 Labs: Short CBC 10/19/16 Range/Units 03:49 WBC 5.3 (4.3-11.1) K/mcL Hgb 7.6 L (11.5-15.4) g/dL Hct 25.3 L (35.3-44.9) % Plt Count 197 (140-400) K/mcL Neutrophils # 3.2 (1.6-8.9) K/mcL BMP 10/18/16 10/19/16 10/19/16 17:55 03:49 12:08 Sodium 141 Potassium 4.0 3.5 3.8 Chloride 106 Carbon Dioxide 25 BUN 10 Creatinine 0.75 Glucose 112 H Calcium 9.1 - ABG Interpretation ABG results: ABG ABG pH 7.55 pH Units (7.32-7.45) H 10/13/16 23:53 ABG pCO2 34 mmHg (35-45) L 10/13/16 23:53 ABG pO2 73 mmHg (85-104) L 10/13/16 23:53 ABG O2 Saturation 96 % (95-98) 10/13/16 23:53 PT/INR, D-dimer PT 15.8 Seconds (9.4-12.1) H 10/12/16 04:00 - VTE Documentation of Mechanical Device: Intermittent pneumatic compression device Consult Discharge Plan - Plan Referrals: Ward Mcmanus MD [Primary Care Provider] - 10/21/16 2:00 pm () Cleveland Mascorro MD [Partnered Physician] - 11/05/16 12:00 pm
[2016-10-19 21:49] LABS: Magnesium 1.8 mg/dL (1.6-2.6); Potassium 3.8 mEq/L (3.5-4.5)
[2016-10-20] MEDS: hydrALAZINE 25 MG TABLET PO SCH ×4 (00:24→23:41)
[2016-10-20] MEDS: Ipratropium/Albuterol Neb 3 ML IH SCH ×7 (04:57→23:54)
[2016-10-20 05:04] LABS: Basophils % 0.9 %; Eosinophils # 0.2 K/mcL (0.0-0.6); Eosinophils % 3.4 %; Hematocrit 23.3 % (35.3-44.9); Immature Granulocytes % 0.7 % (0-4); Lymphocytes # 1.2 K/mcL (0.6-4.6); Lymphocytes % 28.1 %; Mean Corpuscular Hemoglobin 26.5 pg (28.0-33.3); Mean Corpuscular Volume 88.3 fL (83.0-100.0); Mean Platelet Volume 10.3 fL (9.4-12.4); Monocytes # 0.5 K/mcL (0.0-1.3); Monocytes % 10.8 %; Neutrophils # 2.5 K/mcL (1.6-8.9); Platelet Count 172 K/mcL (140-400); Red Blood Count 2.64 M/mcL (3.82-4.97); Red Cell Distribution Width 19.4 % (11.5-14.5); Segmented Neutrophils % 56.1 %
[2016-10-20 06:11] LABS: BUN/Creatinine Ratio 14 (6-26); Blood Urea Nitrogen 10 mg/dL (7-20); Calcium 8.7 mg/dL (8.6-10.8); Carbon Dioxide 27 mEq/L (19-29); Chloride 107 mEq/L (98-109); Glucose 112 mg/dL (70-99); Magnesium 1.9 mg/dL (1.6-2.6); Osmolality,Calculated 292 (280-300); Potassium 3.7 mEq/L (3.5-4.5); Sodium 141 mEq/L (136-145); eGFR For African Americans > 60 (> 60); eGFR For Non-African Americans > 60 (> 60)
[2016-10-20] MEDS: Magnesium Sulfate 2 GM in D5% in Water 100 ML IVPB PRN (06:51)
[2016-10-20] MEDS: Ferrous Sulfate Oral Soln 300 MG/5 ML UDC PO SCH ×2 (09:16→17:20)
[2016-10-20] MEDS: Pantoprazole 40 MG VIAL IVP SCH (09:16)
[2016-10-20] MEDS: Chlorhexidine Rinse 15 ML MOUTHWASH MM SCH ×2 (09:16→20:30)
[2016-10-20] MEDS: Cholecalciferol (D-3) 1,000 UNIT TABLET PO SCH (09:17)
[2016-10-20] MEDS: Magnesium Oxide 400 MG TABLET PO SCH ×2 (09:17→20:30)
[2016-10-20] MEDS: Aspirin 81 MG TAB.CHEW PO SCH (09:18)
[2016-10-20] MEDS: Furosemide 40 MG TABLET PO SCH (09:18)
[2016-10-20] MEDS: levoFLOXacin 500 MG TABLET PO SCH (09:18)
[2016-10-20] MEDS: Insulin LISPRO 300 UNITS/3 ML VIAL SQ SCH ×4 (09:21→20:31)
--- NOTE | 2016-10-20 11:15 | Gastroenterology Progress Note ---
Date of Encounter: 10/20/16 Time of Encounter: 09:55 - Assessment and plan (1) Acute blood loss anemia Current Visit: Yes Status: Acute Assessment and plan: Anemia likely multifactorial. No overt signs of bleeding. Iron 33 with ferritin 122 on 10/17. No indication for repeat scopes at this time. Continue iron supplementation. Continue to monitor CBC and transfuse PRBC as needed. (2) Thrombus of left atrial appendage Current Visit: Yes Status: Chronic (3) Bacteremia Current Visit: Yes Status: Acute - Time Spent With Patient Total time spent is greater than 50% in coordination of care (as documented) at patient's floor/unit and/or counseling patient: - Subjective Interval history: Pt resting in bed. She denies any melena, hematochezia, or hematemesis. - Constitutional Vitals: Temp Pulse Resp BP Pulse Ox 97.7 F 91 16 150/72 94 10/20/16 08:45 10/20/16 08:45 10/20/16 08:45 10/20/16 08:45 10/20/16 08:45 General appearance: Present: cooperative, A&O X 3, no acute distress, answers questions appropriately - Head Head exam: Present: atraumatic, normocephalic - Eye Eye exam: Present: normal appearance, sclera anicteric - ENT ENT exam: Present: mucous membranes moist - Neck Neck exam general surgery: Present: normal inspection, trachea midline - Respiratory Respiratory exam: Present: decreased breath sounds, CTAB. Absent: rales, rhonchi - Cardiovascular Cardiovascular exam: Present: RRR, +S1, +S2 - GI/Abdominal GI/Abdominal exam: Present: soft, tenderness, no peritoneal signs. Absent: distended, firm, guarding - Rectal Rectal exam: Present: deferred - Extremities Exam Extremities exam: Present: warm - Neurological Exam Neurological exam: Present: no focal deficits - Psychiatric Psychiatric exam: Present: normal affect, normal mood - Skin Skin exam: Present: dry, intact, normal color, warm Results - Labs CBC & Chem 7: 10/20/16 04:50 10/20/16 04:50 Labs: Last Result Calcium 8.7 mg/dL (8.6-10.8) 10/20/16 04:50 Iron 33 mcg/dL (50-170) L 10/17/16 04:00 % Saturation 12 % (15-50) L 10/17/16 04:00 Transferrin 200 mg/dL (180-382) 10/17/16 04:00 Ferritin 122 ng/ml (5-204) 10/17/16 04:00 Troponin I 0.06 ng/mL (0-0.03) H* 09/28/16 01:00 Vitamin B12 512 pg/mL (213-816) 10/17/16 04:00 Folate 4.5 ng/mL (7.0-31.4) L 10/17/16 04:00 Stool Occult Blood Positive (Negative) A 10/17/16 15:57 Entire Visit Hgb 7.0 g/dL (11.5-15.4) L 10/20/16 04:50 Hct 23.3 % (35.3-44.9) L 10/20/16 04:50 PT 15.8 Seconds (9.4-12.1) H 10/12/16 04:00 Ferritin 122 ng/ml (5-204) 10/17/16 04:00 Total Bilirubin 0.4 mg/dL (0.2-1.2) 10/16/16 04:28 AST 18 Units/L (5-34) 10/16/16 04:28 ALT 15 Units/L (0-55) 10/16/16 04:28 Ammonia 23 mcmol/L (18-72) 10/09/16 10:05 Folate 4.5 ng/mL (7.0-31.4) L 10/17/16 04:00 E. coli (PCR) Not Detected (Not Detect) 10/08/16 01:41 - ABG ABG results: ABG ABG pH 7.55 pH Units (7.32-7.45) H 10/13/16 23:53 ABG pCO2 34 mmHg (35-45) L 10/13/16 23:53 ABG pO2 73 mmHg (85-104) L 10/13/16 23:53 ABG O2 Saturation 96 % (95-98) 10/13/16 23:53 PT/INR, D-dimer PT 15.8 Seconds (9.4-12.1) H 10/12/16 04:00 - VTE Documentation of Mechanical Device: Graduated compression elastic hosiery Consult Discharge Plan - Plan Referrals: Ward Mcmanus MD [Primary Care Provider] - (PATIENT IS GOING TO [facility], NO PCP APPOINTMENT IS NEEDED) Cleveland Mascorro MD [Partnered Physician] - 11/05/16 12:00 pm
[2016-10-20] MEDS: Ondansetron 4 MG/2 ML VIAL IVP PRN (12:53)
[2016-10-20] MEDS: Folic Acid 1 MG in D5% in Water 50 ML IVPB SCH (13:13)
[2016-10-20] MEDS ORDERED: Potassium Chloride Elixir 20 MEQ/15 ML UDC PO PRN (14:54)
--- NOTE | 2016-10-20 15:21 | Internal Med Progress Note ---
Date of Encounter: 10/20/16 Time of Encounter: 11:00 - Assessment and plan (1) Anemia Current Visit: No Status: Acute Assessment and plan: Patient presented with hemoglobin of 6.4 on admission 09/27. Acute blood loss anemia secondary to GI bleed in the setting of supratherapeutic INR at 5. Coumadin held. Patient was transfused with 3 units of packed red blood cells and 1 FFP. Colonoscopy 09/08/2016 showed 10mm and 14mm tubular adenoma, diverticulosis, internal hemorrhoids, repeat 3 years. EGD 09/08/2016 showed single nodule in stomach, gastropathy Ferritin 122. Iron 33. Percent saturation 12. Normal B12. low folate. fecal occult blood test positive on 10/17. today, hemoglobin at 7. transfuse 1 unit PRBC. Close monitor. no signs of external bleeding. hemodynamically stable. oral folate. Qualifiers: Anemia type: other cause Other causes of anemia: acute posthemorrhagic Qualified Code(s): D62 - Acute posthemorrhagic anemia (2) Bacteremia Current Visit: Yes Status: Acute Assessment and plan: Pseudomonas stutzeri Bacteremia. History of ESBL UTI 09/28. Blood cultures from 10/08/16 grew Pseudomonas stutzeri Repeat cultures from 10/10/16 show NGTD. Clinically improved. Remains afebrile since 10/08 and WBC is normal. received IV Zosyn for 10 days. continue oral levaquin for a total course of 14 days after negative blood cultures (last day is 10/22). (3) Acute respiratory failure with hypoxia Current Visit: Yes Status: Acute Assessment and plan: Secondary to poor respiratory effort due to metabolic encephalopathy and suspected pulmonary edema likely from fluid resuscitation. Patient required mechanical ventilation on admission and was successfully extubated 10/12. speech therapy consulted and recommends puree diet CXR 10/11/16, no obvious pneumonia CXR 10/13 shows cardiomegaly with vascular congestion and moderate right pleural effusion, increasing airspace disease in right lower lung. Improved, doing well on 2L NC. continue oral lasix and nebulizations. (4) Acute worsening of stage 3 chronic kidney disease Current Visit: Yes Status: Acute Assessment and plan: resolved. pre-renal from acute blood loss anemia. close monitoring. Avoid nephrotoxic agents as possible (5) Toxic metabolic encephalopathy Current Visit: Yes Status: Acute Assessment and plan: Resolved. 10/14 off ativan and Celexa. Appreciate psychiatry input. (6) LA thrombus Current Visit: Yes Status: Acute Assessment and plan: Patient with known atrial flutter with COSTA thrombus. Holding anticoagulation due to multiple episodes of acute anemia. Patient and family aware of high risk for CVA. 09/27/16 now she presents with weakness and bright red blood per rectum. Hemoglobin 6.4. INR supratherapeutic at 5. She was transfused with 3 units PRBC, 1 FFP and vitamin K. 09/07/16 hospitalized for acute anemia, Hgb 5.7. She was transfused with 3 units PRBC and underwent EGD/colonoscopy which was negative for active bleeding (2 non -bleeding polyps were removed). By discharge, she was re-started on coumadin with lovenox bridging. (7) Atrial fibrillation and flutter Current Visit: Yes Status: Resolved Assessment and plan: Patient with known history of poorly-controlled atrial flutter. He is not a candidate for rhythm control strategy due to COSTA thrombus. Patient takes digoxin and Cardizem at home. Appreciate cardiology input. Heart rate is adequate. Continue metoprolol. Discontinue digoxin and Cardizem at discharge. (8) Diabetes mellitus type 2, noninsulin dependent Current Visit: No Status: Chronic Assessment and plan: adequate Accu-Cheks. Continue sliding scale, diabetic diet. (9) Chronic blood loss anemia Current Visit: No Status: Acute Assessment and plan: plan as above. (10) Acute hypernatremia Current Visit: Yes Status: Resolved Assessment and plan: Resolved. Mild hypernatremia. Sodium 150 on 10/14. Most likely secondary to fluid resuscitation. - Subjective Interval history: no external bleeding. hgb of 7. - Constitutional Vitals: Temp Pulse Resp BP Pulse Ox 97.9 F 95 16 161/80 92 10/20/16 15:15 10/20/16 15:15 10/20/16 15:15 10/20/16 15:15 10/20/16 15:15 General appearance: Present: cooperative, A&O X 2, pleasant, no acute distress, answers questions appropriately - Respiratory Respiratory exam: Present: CTAB - Cardiovascular Cardiovascular exam: Present: RRR - GI/Abdominal GI/Abdominal exam: Present: normal bowel sounds, soft. Absent: distended, tenderness - Extremities Exam Extremities exam: Present: pedal edema (1+ LE edema) - Back Exam Back exam: Absent: CVA tenderness (L), CVA tenderness (R) - Neurological Exam Neurological exam: Present: alert, oriented X3, no focal deficits, strengths equal and symetr throughout. Absent: facial droop, speech deficit Internal Medicine: Result - Labs CBC & Chem 7: 10/20/16 04:50 10/20/16 04:50 Labs: Short CBC 10/20/16 Range/Units 04:50 WBC 4.4 (4.3-11.1) K/mcL Hgb 7.0 L (11.5-15.4) g/dL Hct 23.3 L (35.3-44.9) % Plt Count 172 (140-400) K/mcL Neutrophils # 2.5 (1.6-8.9) K/mcL BMP 10/19/16 10/20/16 21:15 04:50 Sodium 141 Potassium 3.8 3.7 Chloride 107 Carbon Dioxide 27 BUN 10 Creatinine 0.70 Glucose 112 H Calcium 8.7 - ABG Interpretation ABG results: ABG ABG pH 7.55 pH Units (7.32-7.45) H 10/13/16 23:53 ABG pCO2 34 mmHg (35-45) L 10/13/16 23:53 ABG pO2 73 mmHg (85-104) L 10/13/16 23:53 ABG O2 Saturation 96 % (95-98) 10/13/16 23:53 PT/INR, D-dimer PT 15.8 Seconds (9.4-12.1) H 10/12/16 04:00 - VTE Documentation of Mechanical Device: Graduated compression elastic hosiery Consult Discharge Plan - Plan Referrals: Ward Mcmanus MD [Primary Care Provider] - (PATIENT IS GOING TO [facility], NO PCP APPOINTMENT IS NEEDED) Cleveland Mascorro MD [Partnered Physician] - 11/05/16 12:00 pm
[2016-10-20] MEDS: Furosemide 20 MG TABLET PO SCH (17:20)
[2016-10-20 18:02] LABS: Magnesium 2.1 mg/dL (1.6-2.6); Potassium 3.9 mEq/L (3.5-4.5)
[2016-10-20 18:16] LABS: Hematocrit 27.3 % (35.3-44.9); Hemoglobin 8.5 g/dL (11.5-15.4)
[2016-10-21 03:55] LABS: Basophils % 0.6 %; Eosinophils # 0.2 K/mcL (0.0-0.6); Eosinophils % 2.9 %; Hematocrit 26.2 % (35.3-44.9); Hemoglobin 8.2 g/dL (11.5-15.4); Immature Granulocytes % 0.4 % (0-4); Lymphocytes # 1.7 K/mcL (0.6-4.6); Lymphocytes % 31.5 %; Mean Corpuscular HGB Conc 31.3 g/dL (31.6-35.5); Mean Corpuscular Hemoglobin 27.3 pg (28.0-33.3); Mean Corpuscular Volume 87.3 fL (83.0-100.0); Mean Platelet Volume 9.5 fL (9.4-12.4); Monocytes # 0.5 K/mcL (0.0-1.3); Monocytes % 9.9 %; Neutrophils # 2.9 K/mcL (1.6-8.9); Platelet Count 171 K/mcL (140-400); Red Cell Distribution Width 18.5 % (11.5-14.5); Segmented Neutrophils % 54.7 %
[2016-10-21] MEDS: Ipratropium/Albuterol Neb 3 ML IH SCH ×4 (04:00→16:01)
[2016-10-21 05:33] LABS: BUN/Creatinine Ratio 10 (6-26); Blood Urea Nitrogen 8 mg/dL (7-20); Calcium 8.9 mg/dL (8.6-10.8); Carbon Dioxide 24 mEq/L (19-29); Chloride 106 mEq/L (98-109); Glucose 109 mg/dL (70-99); Magnesium 1.9 mg/dL (1.6-2.6); Osmolality,Calculated 287 (280-300); Sodium 139 mEq/L (136-145); eGFR For African Americans > 60 (> 60); eGFR For Non-African Americans > 60 (> 60)
[2016-10-21] MEDS: Insulin LISPRO 300 UNITS/3 ML VIAL SQ SCH ×2 (07:50→12:11)
[2016-10-21] MEDS: Pantoprazole 40 MG VIAL IVP SCH (08:02)
[2016-10-21] MEDS ORDERED: Folic Acid 1 MG TABLET PO SCH (09:00)
[2016-10-21] MEDS: Ferrous Sulfate Oral Soln 300 MG/5 ML UDC PO SCH ×2 (09:19→15:29)
[2016-10-21] MEDS: Chlorhexidine Rinse 15 ML MOUTHWASH MM SCH (09:19)
[2016-10-21] MEDS: Cholecalciferol (D-3) 1,000 UNIT TABLET PO SCH (09:19)
[2016-10-21] MEDS: hydrALAZINE 25 MG TABLET PO SCH ×2 (09:20→15:29)
[2016-10-21] MEDS: Aspirin 81 MG TAB.CHEW PO SCH (09:20)
[2016-10-21] MEDS: levoFLOXacin 500 MG TABLET PO SCH (09:20)
[2016-10-21] MEDS: Furosemide 40 MG TABLET PO SCH (09:20)
[2016-10-21] MEDS: Magnesium Oxide 400 MG TABLET PO SCH (09:20)
[2016-10-21 11:28] VITALS: BP 165/95
--- NOTE | 2016-10-21 15:11 | Internal Med Progress Note ---
Date of Encounter: 10/21/16 Time of Encounter: 15:06 - Assessment and plan (1) Anemia Current Visit: No Status: Acute Assessment and plan: Patient presented with hemoglobin of 6.4 on admission 09/27. Acute blood loss anemia secondary to GI bleed in the setting of supratherapeutic INR at 5. Coumadin held. Patient was transfused with 3 units of packed red blood cells and 1 FFP. Colonoscopy 09/08/2016 showed 10mm and 14mm tubular adenoma, diverticulosis, internal hemorrhoids, repeat 3 years. EGD 09/08/2016 showed single nodule in stomach, gastropathy Ferritin 122. Iron 33. Percent saturation 12. Normal B12. low folate. fecal occult blood test positive on 10/17. 10/20 received 1 unit PRBC due to hgb at 7. GI will follow as outpatient. today, hemoglobin at 8.2. no signs of external bleeding. hemodynamically stable. Continue ferrous sulfate and Folate. Qualifiers: Anemia type: other cause Other causes of anemia: acute posthemorrhagic Qualified Code(s): D62 - Acute posthemorrhagic anemia (2) Bacteremia Current Visit: Yes Status: Acute Assessment and plan: Pseudomonas stutzeri Bacteremia. History of ESBL UTI 09/28. Blood cultures from 10/08/16 grew Pseudomonas stutzeri Repeat cultures from 10/10/16 show NGTD. Clinically improved. Remains afebrile since 10/08 and WBC is normal. received IV Zosyn for 8 days. continue oral levaquin for a total course of 14 days after negative blood cultures (last day is 10/24). (3) Acute respiratory failure with hypoxia Current Visit: Yes Status: Acute Assessment and plan: Secondary to poor respiratory effort due to metabolic encephalopathy and suspected pulmonary edema likely from fluid resuscitation. Patient required mechanical ventilation on admission and was successfully extubated 10/12. speech therapy consulted and recommends puree diet CXR 10/11/16, no obvious pneumonia CXR 10/13 shows cardiomegaly with vascular congestion and moderate right pleural effusion, increasing airspace disease in right lower lung. Improved, doing well on 2L NC. continue oral lasix and nebulizations. (4) Acute worsening of stage 3 chronic kidney disease Current Visit: Yes Status: Acute Assessment and plan: resolved. pre-renal from acute blood loss anemia. close monitoring. Avoid nephrotoxic agents as possible (5) Toxic metabolic encephalopathy Current Visit: Yes Status: Acute Assessment and plan: Resolved. 10/14 off ativan and Celexa. Appreciate psychiatry input. (6) LA thrombus Current Visit: Yes Status: Acute Assessment and plan: Patient with known atrial flutter with COSTA thrombus. Holding anticoagulation due to multiple episodes of acute anemia. Patient and family aware of high risk for CVA. 09/27/16 now she presents with weakness and bright red blood per rectum. Hemoglobin 6.4. INR supratherapeutic at 5. She was transfused with 3 units PRBC, 1 FFP and vitamin K. 09/07/16 hospitalized for acute anemia, Hgb 5.7. She was transfused with 3 units PRBC and underwent EGD/colonoscopy which was negative for active bleeding (2 non -bleeding polyps were removed). By discharge, she was re-started on coumadin with lovenox bridging. (7) Atrial fibrillation and flutter Current Visit: Yes Status: Resolved Assessment and plan: Patient with known history of poorly-controlled atrial flutter. He is not a candidate for rhythm control strategy due to COSTA thrombus. Patient takes digoxin and Cardizem at home. Appreciate cardiology input. Heart rate is adequate. Continue metoprolol. Discontinue digoxin and Cardizem at discharge. (8) Diabetes mellitus type 2, noninsulin dependent Current Visit: No Status: Chronic Assessment and plan: adequate Accu-Cheks. Continue sliding scale, diabetic diet. (9) Chronic blood loss anemia Current Visit: No Status: Chronic Assessment and plan: plan as above. (10) Acute hypernatremia Current Visit: Yes Status: Resolved Assessment and plan: Resolved. Mild hypernatremia. Sodium 150 on 10/14. Most likely secondary to fluid resuscitation. - Subjective Interval history: no external bleeding. patient feels better and is eager to go to rehab. - Constitutional Vitals: Temp Pulse Resp BP Pulse Ox 97.9 F 78 18 165/95 93 10/21/16 11:45 10/21/16 11:45 10/21/16 11:45 10/21/16 11:45 10/21/16 11:45 General appearance: Present: cooperative, A&O X 2, pleasant, no acute distress, answers questions appropriately - Neck Neck exam general surgery: Present: supple, trachea midline. Absent: lymphadenopathy - Respiratory Respiratory exam: Present: CTAB - Cardiovascular Cardiovascular exam: Present: RRR - GI/Abdominal GI/Abdominal exam: Present: normal bowel sounds, soft. Absent: distended, tenderness - Extremities Exam Extremities exam: Present: pedal edema (1+ pedal edema) - Neurological Exam Neurological exam: Present: alert, oriented X3, no focal deficits, strengths equal and symetr throughout. Absent: facial droop, speech deficit - Skin Skin exam: Absent: rash Internal Medicine: Result - Labs CBC & Chem 7: 10/21/16 03:45 10/21/16 03:45 Labs: Short CBC 10/20/16 10/21/16 Range/Units 17:30 03:45 WBC 5.2 (4.3-11.1) K/mcL Hgb 8.5 L D 8.2 L (11.5-15.4) g/dL Hct 27.3 L 26.2 L (35.3-44.9) % Plt Count 171 (140-400) K/mcL Neutrophils # 2.9 (1.6-8.9) K/mcL BMP 10/20/16 10/21/16 17:30 03:45 Sodium 139 Potassium 3.9 4.0 Chloride 106 Carbon Dioxide 24 BUN 8 Creatinine 0.77 Glucose 109 H Calcium 8.9 - ABG Interpretation ABG results: ABG ABG pH 7.55 pH Units (7.32-7.45) H 10/13/16 23:53 ABG pCO2 34 mmHg (35-45) L 10/13/16 23:53 ABG pO2 73 mmHg (85-104) L 10/13/16 23:53 ABG O2 Saturation 96 % (95-98) 10/13/16 23:53 PT/INR, D-dimer PT 15.8 Seconds (9.4-12.1) H 10/12/16 04:00 - Impressions Impressions Chest X-Ray 10/21/16 11:50 IMPRESSION: Decreased pleural fluid and airspace change in the right lower lobe from prior comparison study. D/ / Satish Simmons MD / Satish Simmons MD Interpreting Provider: Satish Simmons MD - VTE Documentation of Mechanical Device: Graduated compression elastic hosiery Consult Discharge Plan - Plan Instructions: Losartan (By mouth), Levofloxacin (By mouth), Quetiapine (By mouth), Atrial Flutter (DC), Acute Kidney Injury (DC), Diabetes Mellitus Type 2 in Adults (DC), Sepsis (DC), Anemia (GEN) Referrals: Ward Mcmanus MD [Primary Care Provider] - (PATIENT IS GOING TO [facility], NO PCP APPOINTMENT IS NEEDED) Cleveland Mascorro MD [Partnered Physician] - 11/05/16 12:00 pm Prescriptions: levoFLOXacin [Levaquin] 500 mg PO DAILY #3 tablet Losartan [Cozaar] 100 mg PO DAILY #30 tablet Quetiapine Fumarate [Seroquel] 25 mg PO HS #30 tablet
--- NOTE | 2016-10-21 15:20 | Discharge Summary ---
Date of Encounter: 10/21/16 Time of Encounter: 15:17 - Discharge Diagnosis (1) Anemia Priority: Primary Status: Acute Qualifiers: Anemia type: other cause Other causes of anemia: acute posthemorrhagic Qualified Code(s): D62 - Acute posthemorrhagic anemia (2) Bacteremia Priority: Primary Status: Acute (3) Acute respiratory failure with hypoxia Priority: Primary Status: Acute (4) Acute worsening of stage 3 chronic kidney disease Priority: Primary Status: Acute (5) Toxic metabolic encephalopathy Priority: Primary Status: Acute (6) LA thrombus Priority: Primary Status: Acute (7) Atrial fibrillation and flutter Priority: Primary Status: Resolved (8) Diabetes mellitus type 2, noninsulin dependent Priority: Secondary Status: Chronic (9) Chronic blood loss anemia Priority: Secondary Status: Chronic (10) Acute hypernatremia Priority: Primary Status: Resolved - Discharge Medications Prescriptions: levoFLOXacin [Levaquin] 500 mg PO DAILY #3 tablet Losartan [Cozaar] 100 mg PO DAILY #30 tablet Quetiapine Fumarate [Seroquel] 25 mg PO HS #30 tablet Home Medications: Cholecalciferol (D-3) [Vitamin D] 2,000 unit PO DAILY 04/18/16 [History] Metformin HCl [Metformin HCl ER] 500 mg PO BID 04/18/16 [History] Aspirin Enteric Coated [Aspirin EC] 81 mg PO DAILY #30 tablet. 06/14/16 [Rx] Citalopram Hydrobromide [Celexa] 30 mg PO DAILY 07/23/16 [History] Ferrous Sulfate 325 mg PO BIDWM #30 tablet 09/10/16 [Rx] Albuterol Sulfate [Albuterol Inhaler] 2 puff IH Q4H PRN 09/27/16 [History] Atorvastatin Calcium [Lipitor] 20 mg PO HS 09/27/16 [History] Fluticasone/Salmeterol [Advair Hfa 230-21 Mcg Inhaler] 2 puff IH BID 09/27/16 [ History] Folic Acid 1 mg PO DAILY tablet 10/21/16 [Rx] Furosemide [Lasix] 20 mg PO QPM tablet 10/21/16 [Rx] Furosemide [Lasix] 40 mg PO QAM tablet 10/21/16 [Rx] Gabapentin [Neurontin] 300 mg PO HS #0 10/21/16 [Rx] Ipratropium/Albuterol Neb [Duoneb] 3 ml IH [id number] inhsol 10/21/16 [Rx] Losartan [Cozaar] 100 mg PO DAILY #30 tablet 10/21/16 [Rx] Magnesium Oxide [Mag-Ox] 400 mg PO BID tablet 10/21/16 [Rx] Metoprolol [Lopressor] 75 mg PO BID tablet 10/21/16 [Rx] Pantoprazole Sodium [Protonix] 40 mg PO DAILY #0 10/21/16 [Rx] Quetiapine Fumarate [Seroquel] 25 mg PO HS #30 tablet 10/21/16 [Rx] levoFLOXacin [Levaquin] 500 mg PO DAILY #3 tablet 10/21/16 [Rx] Allergies/Adverse Reactions: Allergies No Known Allergies Allergy (Verified 06/12/16 09:27) Date of admission: 09/27/16 18:49 Primary care physician: Ward Mcmanus MD Consults: 09/27/16 19:20 Consult to Gastroenterology [CONS] Routine Consulting Provider: Gastroenterology Alice Reason for Consult: lower GI bleeding Time Notified: 19:26 Call Completed: No 09/27/16 19:31 Consult to Qualifications Examiner [CONS] Routine Reason for SW Consult: discharge planning 09/28/16 04:17 Consult to Nephrology [CONS] Routine Consulting Provider: Kidney Alice/JOCELYN/ABBY/DOLLY Reason for Consult: FRAN Call Completed: No 09/28/16 04:24 Consult to Cardiology [CONS] Routine Comment: Consulting Provider: Cardiology Alice Reason for Consult: H/O COSTA thrombus - now has GI bleed; Digitoxicity Call Completed: No 09/29/16 17:35 Consult to Occupational Therapy [CONS] Routine Comment: Evaluate, develop and implement POC Consult to Physical Therapy [CONS] Routine Comment: Evaluate, develop and implement POC 10/03/16 02:37 Consult to Nurse Navigator [CONS] Routine Comment: 10/03/16 03:32 Consult to Nutrition [CONS] Routine Comment: Consulting Provider: NUTRITION Reason for Dietary Consult: TF Start and Manage 10/03/16 03:38 Consult to Pulmonology [CONS] Routine Consulting Provider: [facility]m [facility] Reason for Consult: Acute, refractory agitated delirium in patient with O2 dep Chr resp failure, CAD/CABG/CMP w/ mural thrombi in setting of inflammatory coagulopathy. Multiple co-morbidities. Please evaluate and advise. Intubation/mech-vent/sedated for airway protection and potential patient risk harmful event. Time Notified: 03:50 Call Completed: No 10/08/16 15:37 Consult to Interpret Exam [CONS] Routine Consulting Provider: Mathew Mejía Consult to Interpret Exam: Interpret EEG 10/09/16 08:42 Consult to Cardiology [CONS] Stat Comment: Consulting Provider: Cardiology [facility] Reason for Consult: Previous consult. Patient returned to A. Fib RVR persistent on cardizem drip Time Notified: 08:43 Call Completed: Yes 10/10/16 09:22 Consult to Neurology [CONS] Routine Consulting Provider: Neurology [facility] Reason for Consult: encephalopathy Call Completed: Yes 10/11/16 13:14 Consult to Infectious Diseases [CONS] Routine Consulting Provider: [facility] Reason for Consult: ESBL UTI. Gram negative bacteremia Call Completed: Yes 10/12/16 11:39 Consult to Occupational Therapy [CONS] Routine Comment: Evaluate, develop and implement POC Reason for Consult: please evaluate after mechanical ventilation. As above. Consult to Physical Therapy [CONS] Routine Comment: Evaluate, develop and implement POC Reason for Consult: muscular deconditioning. Please evaluate as stated above. 10/12/16 15:50 Consult to Speech Therapy [CONS] Routine Comment: Evaluate, develop and implement POC Reason for Consult: as above and swallow evaluation Time Notified: 15:50 Call Completed: No 10/13/16 16:16 Consult to Psychiatry [CONS] Routine Consulting Provider: Psychiatry [facility] Reason for Consult: AMS, depression (reconsult after transfer orders inadvertently cancelled) Time Notified: 14:02 Call Completed: Yes - Patient Status Disposition: Transfer Inpatient Rehab Fac Condition: Good Functional capacity at discharge: uses cane/walker Overall status at discharge: patient is progressing back to baseline - Discharge Instructions Instructions: Losartan (By mouth), Levofloxacin (By mouth), Quetiapine (By mouth), Atrial Flutter (DC), Acute Kidney Injury (DC), Diabetes Mellitus Type 2 in Adults (DC), Sepsis (DC), Anemia (GEN) Follow Up With: Ward Mcmanus MD [Primary Care Provider] - (PATIENT IS GOING TO [facility], NO PCP APPOINTMENT IS NEEDED) Cleveland Mascorro MD [Partnered Physician] - 11/05/16 12:00 pm - Diet and Activity Activity: as per physical therapy Diet: diabetic diet, low fat, low cholesterol, low salt diet, other (fluid restriction 1.5Liters a day) Hospital course: Ms. Hernández is a 66 year old female with a past medical history of COPD, diabetes, CKD 3, atrial fibrillation, left atrial appendage thrombus on anticoagulation with Coumadin, hypertension and prior history of GI bleed. She presented with a chief complaint of chest pain. She was found to have a hemoglobin of 6.8 and INR at 5. Coumadin was held and she received 3 units of PRBC and 1 FFP. Patient had recent Colonoscopy 09/08/2016 showed 10mm and 14mm tubular adenoma, diverticulosis, internal hemorrhoids and EGD 09/08/2016 showed single nodule in stomach, gastropathy. No further testing was deemed necessary. It was thought that her bleeding is secondary to her anticoagulation and given multiple episodes of GI bleed, her anticoagulation was discontinued due to high risk for bleeding. Patient and family aware of high risk for CVA. Ferritin 122. Iron 33. Percent saturation 12. Normal B12. low folate. Her hemoglobin dropped to 7 on 10/20 and she received 1 unit PRBC. GI will follow as outpatient. Her hospital course was complicated by acute respiratory failure with hypoxia secondary to chronic encephalopathy and pulmonary edema likely from fluid resuscitation. She required mechanical ventilation on October 03 and was successfully extubated on October 12. She received nebulizations and home medications were stopped. She received aggressive diuresis with Lasix drip with clinical improvement and was converted to oral Lasix before discharge. CXR 10/13 shows cardiomegaly with vascular congestion and moderate right pleural effusion, increasing airspace disease in right lower lung. At discharge, she was tolerating room air well. She had positive blood cultures on 10/08 growing Pseudomonas stutzeri. She received IV Zosyn empirically with clinical improvement (she remained afebrile and WBC became normal). Repeat blood cultures on 10/10 were negative. She was switched to oral Levaquin and will complete 14 days after negative blood cultures. Stop date for oral Levaquin is October 24. PLAN: Follow-up in the hematology clinic in 1-2 weeks for anemia. Continue fluid restriction 1.8 L per day. Stop date for oral Levaquin is October 24. CBC and BMP in 1 week. - Time Spent with Patient Total time spent providing and/or coordinating discharge services: - Constitutional Vitals: Temp Pulse Resp BP Pulse Ox 97.9 F 78 18 165/95 93 10/21/16 11:45 10/21/16 11:45 10/21/16 11:45 10/21/16 11:45 10/21/16 11:45 General appearance: Present: cooperative, A&O X 2, pleasant, no acute distress, answers questions appropriately - VTE Documentation of Mechanical Device: Graduated compression elastic hosiery
[2016-10-21] MEDS: Furosemide 20 MG TABLET PO SCH (15:29)
--- NOTE | 2016-10-21 16:08 | Physician Discharge Referral ---
ExtendedCare Referral Info Transfer To: [facility] Provider in Charge: Michel Provider in Charge after Transfer: PCP Institutional Level of Care: Skilled - Diagnosis (1) Anemia Status: Acute (2) Bacteremia Status: Acute (3) Acute respiratory failure with hypoxia Status: Acute (4) Acute worsening of stage 3 chronic kidney disease Status: Acute (5) Toxic metabolic encephalopathy Status: Acute (6) LA thrombus Status: Acute (7) Atrial fibrillation and flutter Status: Resolved (8) Diabetes mellitus type 2, noninsulin dependent Status: Chronic (9) Chronic blood loss anemia Status: Chronic (10) Acute hypernatremia Status: Resolved - Transfer Medications Prescriptions: levoFLOXacin [Levaquin] 500 mg PO DAILY #3 tablet Losartan [Cozaar] 100 mg PO DAILY #30 tablet Quetiapine Fumarate [Seroquel] 25 mg PO HS #30 tablet Home Medications: Cholecalciferol (D-3) [Vitamin D] 2,000 unit PO DAILY 04/18/16 [History] Metformin HCl [Metformin HCl ER] 500 mg PO BID 04/18/16 [History] Aspirin Enteric Coated [Aspirin EC] 81 mg PO DAILY #30 tablet. 06/14/16 [Rx] Citalopram Hydrobromide [Celexa] 30 mg PO DAILY 07/23/16 [History] Ferrous Sulfate 325 mg PO BIDWM #30 tablet 09/10/16 [Rx] Albuterol Sulfate [Albuterol Inhaler] 2 puff IH Q4H PRN 09/27/16 [History] Atorvastatin Calcium [Lipitor] 20 mg PO HS 09/27/16 [History] Fluticasone/Salmeterol [Advair Hfa 230-21 Mcg Inhaler] 2 puff IH BID 09/27/16 [ History] Folic Acid 1 mg PO DAILY tablet 10/21/16 [Rx] Furosemide [Lasix] 20 mg PO QPM tablet 10/21/16 [Rx] Furosemide [Lasix] 40 mg PO QAM tablet 10/21/16 [Rx] Gabapentin [Neurontin] 300 mg PO HS #0 10/21/16 [Rx] Ipratropium/Albuterol Neb [Duoneb] 3 ml IH [id number] inhsol 10/21/16 [Rx] Losartan [Cozaar] 100 mg PO DAILY #30 tablet 05/18/17 [Rx] Magnesium Oxide [Mag-Ox] 400 mg PO BID tablet 10/21/16 [Rx] Metoprolol [Lopressor] 75 mg PO BID tablet 10/21/16 [Rx] Pantoprazole Sodium [Protonix] 40 mg PO DAILY #0 10/21/16 [Rx] Quetiapine Fumarate [Seroquel] 25 mg PO HS #30 tablet 10/21/16 [Rx] levoFLOXacin [Levaquin] 500 mg PO DAILY #3 tablet 10/21/16 [Rx] Allergies/Adverse Reactions: Allergies No Known Allergies Allergy (Verified 06/12/16 09:27) - Respiratory Orders Smoking Cessation: Smoking cessation has been advised. For more information, call the [employer] Tobacco Quit Line at 8-020-BAEM-NOW. - Lab Orders Lab Orders: Other (include drug levels w/frequency) (cbc and bmp in 1 week) - Advance Directives Code Status: Full Code - Mobility Orders Ambulate - Rehabiliation Orders Rehab Potential: Fair Rehab Orders: Evaluation for Physical Therapy, Evaluation for Occupational Therapy - Treatments List/Other: weight loss program. BP monitor. - Diet Orders No Added Salt (SEVEN), Cardiac (fluid restriction 1.8 liters per day) CERTIFICATION: I certify that the transfer of the above named patient to an Extended Care Facility is necessary for the continuing treatment of the diagnosis listed. The above information is true and accurate reflection of patient's current condition. Confidential - Redisclosure prohibited without a patient's written consent.
== END 2016-10-21 16:35 | DRG 811 ==
LOC: 2NNU 12:16 → EMEROO 12:16 → 2NNU 18:44 → SUATTDRO 18:49 → 2ANU 10-01 09:54 → ICNU 10-03 03:42 → 2NNU 10-13 15:17
PROVIDERS: ADMIT Nurse Practitioner Acute Care; ATTEND Internal Medicine

== ENCOUNTER 2021-12-18 12:33 | Inpatient (IN) ==
[~2021-12-18 12:33] MED LIST: *HR* Atropine Sulfate 1 MG/10 ML SYRINGE IV ONE; *HR* Rocuronium Bromide 50 MG/5 ML VIAL IVP ONE; EPINEPHrine 1 MG/ML VIAL IM ONE; EPINEPHrine 1 MG/ML VIAL IV ONE
[2021-12-18] MEDS ORDERED: Calcium Gluconate 1gm/50mL 1 GM/50 ML BAG IVPB ONE (12:37)
[2021-12-18] MEDS ORDERED: Ketamine *HR* 500 MG/10 ML MDV ONE (13:18)
[2021-12-18] MEDS ORDERED: 0.9 % Sodium Chloride 1,000 ML ONE ×3 (13:33→15:25)
[2021-12-18] MEDS ORDERED: Ketamine 500 MG in 0.9 % Sodium Chloride 250 ML IVC SCH (14:00)
[2021-12-18] MEDS ORDERED: Piperacillin/Tazobactam 3.375 GM in 0.9 % Sodium Chloride Mini Bag 100 ML IVPB ONE (14:04)
[2021-12-18] MEDS ORDERED: 0.9 % Sodium Chloride 1,000 ML IV ONE (14:11)
[2021-12-18 14:17] LABS: Basophils % 0.6 %
[2021-12-18 14:18] LABS: Basophils # 0.1 K/mcL (0.0-0.2); Hematocrit 27.9 % (35.3-44.9); Hemoglobin 7.7 g/dL (11.5-15.4); Immature Granulocytes % 0.6 % (0-4); Lymphocytes # 2.1 K/mcL (0.6-4.6); Lymphocytes % 24.4 %; Mean Corpuscular HGB Conc 27.6 g/dL (31.6-35.5); Mean Corpuscular Hemoglobin 23.2 pg (28.0-33.3); Mean Platelet Volume 11.4 fL (9.4-12.4); Monocytes # 1.4 K/mcL (0.0-1.3); Monocytes % 17.1 %; Neutrophils # 4.8 K/mcL (1.6-8.9); Platelet Count 292 K/mcL (140-400); Red Blood Count 3.32 M/mcL (3.82-4.97); Segmented Neutrophils % 57.3 %; White Blood Count 8.4 K/mcL (4.3-11.1)
[2021-12-18 14:30] LABS: INR 1.4; Prothrombin Time 16.1 Seconds (9.4-12.1)
[2021-12-18 14:36] LABS: Anisocytosis 1+ (Not Present); Hypochromasia Present (Not Present); Platelet Estimate Normal (Normal)
[2021-12-18] MEDS ORDERED: Perflutren Lipid Microsphere 1.3 ML in 0.9 % Sodium Chloride 8.7 ML IVP PRN (14:37)
[2021-12-18 14:55] LABS: Albumin 3.5 g/dL (3.5-5.7); Albumin/Globulin Ratio 1.2 (1.1-2.2); Bilirubin,Total 0.9 mg/dL (0.3-1.0); Calcium 8.8 mg/dL (8.6-10.3); Magnesium 2.3 mg/dL (1.6-2.6); Phosphorous 7.3 mg/dL (2.7-4.5); Total Protein 6.5 g/dL (6.4-8.9); Troponin I 0.03 ng/mL (< 0.04)
[2021-12-18] MEDS ORDERED: Vancomycin 2,000 MG/520 ML IV.SOLN IVPB ONE (15:00)
[2021-12-18] MEDS ORDERED: Heparin 1,000 UNITS/500 mL 500 ML ONE (15:25)
[2021-12-18] MEDS: Norepinephrine 4 MG/254 ML IV.SOLN IVC SCH ×2 (16:05→17:00)
[2021-12-18] MEDS ORDERED: EPINEPHrine 5 MG in D5% in Water 250 ML IVC SCH (17:00)
[2021-12-18 17:24] LABS: ABG Base Excess -26 mEq/L (-2 to 3); ABG HCO3 7 mEq/L (21-27); ABG Oxygen Saturation 99 % (95-98); ABG PCO2 38 mmHg (35-45); ABG PH 6.87 pH Units (7.32-7.45); ABG PO2 204 mmHg (85-104); ABG TCO2 8 mEq/L (20-26); Blood Gas Modality ASSIST CONTROL; Blood Gas VT 500 cc
[2021-12-18] MEDS ORDERED: Artificial Tears SOLN 15 ML BOTTLE BOTH EYES PRN (17:28)
[2021-12-18] MEDS ORDERED: Naloxone 0.4 MG/ML INJ IVP PRN (17:28)
[2021-12-18] MEDS ORDERED: Sodium Bicarbonate 150 MEQ in D5% in Water 1,000 ML IVC SCH (17:30)
[2021-12-18 17:42] LABS: Albumin 3.6 g/dL (3.5-5.7); Albumin/Globulin Ratio 1.1 (1.1-2.2); Bilirubin,Total 0.7 mg/dL (0.3-1.0); Calcium 8.4 mg/dL (8.6-10.3); Globulin 3.2 g/dL (2.4-3.5); Potassium 4.4 mEq/L (3.5-5.1); Total Protein 6.8 g/dL (6.4-8.9); Troponin I 0.05 ng/mL (< 0.04)
[2021-12-18] MEDS: 0.9 % Sodium Chloride 1,000 ML IVC SCH ×2 (18:00→19:29)
[2021-12-18] MEDS: Norepinephrine 32 MG/250 ML IV.SOLN IVC SCH ×2 (18:25→22:16)
[2021-12-18] MEDS ORDERED: Midazolam HCl 50 MG/50 ML IV.SOLN IVC SCH (18:30)
[2021-12-18] MEDS ORDERED: FentaNYL (PF) 1,000 MCG/100 ML IV.SOLN IVC SCH (18:30)
[2021-12-18] MEDS: D5 IVC SCH (18:57)
[2021-12-18] MEDS: EPINEPHRINE IVC SCH (18:57)
[2021-12-18] MEDS: WATER IVC SCH (18:57)
[2021-12-18] MEDS: Artificial Tears SOLN 15 ML BOTTLE BOTH EYES SCH ×2 (19:12→23:56)
[2021-12-18 19:31] LABS: Nucleated Red Blood Cells 0.3 /100 WBC (0); Red Blood Count 3.63 M/mcL (3.82-4.97); Red Cell Distribution Width 21.2 % (11.5-14.5)
[2021-12-18 19:33] LABS: Basophils # 0.1 K/mcL (0.0-0.2); Basophils % 0.3 %; Hematocrit 33.7 % (35.3-44.9); Hemoglobin 8.8 g/dL (11.5-15.4); Immature Granulocytes % 1.5 % (0-4); Lymphocytes % 25.1 %; Mean Corpuscular HGB Conc 26.1 g/dL (31.6-35.5); Mean Corpuscular Hemoglobin 24.2 pg (28.0-33.3); Mean Platelet Volume 10.9 fL (9.4-12.4); Monocytes # 2.5 K/mcL (0.0-1.3); Monocytes % 13.7 %; Neutrophils # 10.8 K/mcL (1.6-8.9); Platelet Count 277 K/mcL (140-400); Segmented Neutrophils % 59.4 %; White Blood Count 18.1 K/mcL (4.3-11.1)
[2021-12-18 19:35] LABS: Lymphocytes # 4.5 K/mcL (0.6-4.6); Mean Corpuscular Volume 92.8 fL (83.0-100.0)
[2021-12-18 20:03] LABS: Anisocytosis 3+ (Not Present); Hypochromasia Present (Not Present); Platelet Estimate Normal (Normal)
[2021-12-18 20:05] VITALS: PULSE 80
[2021-12-18] MEDS ORDERED: Chlorhexidine Rinse 15 ML MOUTHWASH MM SCH (21:00)
[2021-12-18 23:14] LABS: ABG Base Excess < -30 mEq/L (-2 to 3); ABG HCO3 4 mEq/L (21-27); ABG Oxygen Saturation 81 % (95-98); ABG PCO2 35 mmHg (35-45); ABG PH 6.71 pH Units (7.32-7.45); ABG PO2 90 mmHg (85-104); ABG TCO2 6 mEq/L (20-26); Blood Gas Modality ASSIST CONTROL; Blood Gas VT 500 cc
[2021-12-19] MEDS: EPINEPHRINE IVC SCH ×2 (00:17→03:31)
[2021-12-19] MEDS: WATER IVC SCH ×2 (00:17→03:31)
[2021-12-19] MEDS: D5 IVC SCH ×2 (00:17→03:31)
[2021-12-19] MEDS ORDERED: Amiodarone Premix 0 MG/0 ML BAG IVC ONE (01:49)
[2021-12-19] MEDS ORDERED: Amiodarone Premix 0 MG/0 ML BAG IVPB ONE (01:49)
[2021-12-19 02:31] LABS: VBG Ionized Calcium 0.78 mmol/L (1.15-1.35)
[2021-12-19 02:31] LABS: Immature Granulocytes % 4.9 % (0-4); White Blood Count 17.3 K/mcL (4.3-11.1)
[2021-12-19 02:32] LABS: Basophils # 0.1 K/mcL (0.0-0.2); Basophils % 0.3 %; Hematocrit 32.9 % (35.3-44.9); Hemoglobin 8.2 g/dL (11.5-15.4); Mean Corpuscular HGB Conc 24.9 g/dL (31.6-35.5); Mean Corpuscular Hemoglobin 23.8 pg (28.0-33.3); Mean Corpuscular Volume 95.6 fL (83.0-100.0); Mean Platelet Volume 10.8 fL (9.4-12.4); Monocytes # 1.5 K/mcL (0.0-1.3); Monocytes % 8.7 %; Neutrophils # 10.1 K/mcL (1.6-8.9); Platelet Count 216 K/mcL (140-400); Red Blood Count 3.44 M/mcL (3.82-4.97); Red Cell Distribution Width 21.2 % (11.5-14.5); Segmented Neutrophils % 58.1 %
[2021-12-19 02:37] LABS: Lymphocytes # 4.8 K/mcL (0.6-4.6)
[2021-12-19 02:42] LABS: INR 2.3; Prothrombin Time 25.4 Seconds (9.4-12.1)
[2021-12-19 02:55] LABS: Albumin 2.8 g/dL (3.5-5.7); Albumin/Globulin Ratio 1.3 (1.1-2.2); Bilirubin,Direct 0.5 mg/dL (0.0-0.2); Bilirubin,Indirect 0.5 mg/dL (0.0-1.0); Globulin 2.2 g/dL (2.4-3.5); Magnesium 2.8 mg/dL (1.6-2.6); Potassium 5.7 mEq/L (3.5-5.1)
[2021-12-19 03:00] LABS: Anisocytosis 2+ (Not Present); Macrocytosis Present (Not Present); Platelet Estimate Normal (Normal); Polychromasia 1+ (Not Present)
[2021-12-19] MEDS: Norepinephrine 32 MG/250 ML IV.SOLN IVC SCH (03:06)
[2021-12-19 04:05] VITALS: BP 45/37; TEMP 94.8; O2SAT 74
[2021-12-19] MEDS: Artificial Tears SOLN 15 ML BOTTLE BOTH EYES SCH (05:00)
[2021-12-21 07:57] LABS: ABG Base Excess -18 mEq/L (-2 to 3); ABG Chloride 105 mEq/L (98-107); ABG Glucose 285 mg/dL (60-95); ABG HCO3 12 mEq/L (21-27); ABG Ionized Calcium 1.11 mmol/L (1.15-1.35); ABG Oxygen Saturation 93 % (95-98); ABG PCO2 43 mmHg (35-45); ABG PH 7.06 pH Units (7.32-7.45); ABG PO2 96 mmHg (85-104); ABG TCO2 13 mEq/L (20-26); Blood Gas Modality ASSIST CONTROL
== END 2021-12-19 04:24 | disposition expired | DRG 291 ==
LOC: EMEROOARM 12:33 → ICNU 15:26
PROVIDERS: ADMIT Family Medicine; ATTEND Family Medicine